=== PATIENT | female | born 1960 | race Caucasian/White ===

== ENCOUNTER 2020-05-19 12:28 | Inpatient (IN) | payer MEDICAID ==
[~2020-05-19] VITALS: Ht 152.4 cm; Wt 43.7 kg
[2020-05-19 12:30] VITALS: BP 172/91
[2020-05-19 13:06] LABS: HEMATOCRIT 41.6 % (37.0-47.0); HEMOGLOBIN 13.6 G/DL (12.0-16.0); MEAN CORPUSCULAR VOLUME 89 FL (80-99); PLATELET COUNT 337 K/UL (150-450); RED BLOOD COUNT 4.68 M/UL (4.20-5.40); RED CELL DISTRIBUTION WIDTH 14.9 % (11.6-14.8); WHITE BLOOD COUNT 18.1 K/UL (4.8-10.8)
[2020-05-19 13:22] LABS: ALBUMIN 3.8 G/DL (3.4-5.0); ALBUMIN/GLOBULIN RATIO 0.9 (1.0-2.7); BILIRUBIN,TOTAL 0.3 MG/DL (0.2-1.0); CALCIUM 9.2 MG/DL (8.5-10.1); CREATININE 1.1 MG/DL (0.55-1.30); POTASSIUM 4.4 MMOL/L (3.5-5.1)
--- NOTE | 2020-05-19 13:29 | Emergency Room Report ---
History of Present Illness General Chief Complaint: General Complaint Source: Patient Present Illness HPI Patient is a 60-year-old female presents for increased difficulty with breathing. Patient had gradually worsening shortness of breath over the past week. Had prior history of leukemia. Had been treated with oral medications only. Had not been having any fever. Shortness of breath that worsened over t [place]. Patient was noted to have markedly diminished oxygen saturation when seen by EMS initially. 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 Patient History Past Medical History: see triage record Reviewed Nursing Documentation: PMH: Agreed; PSxH: Agreed Nursing Documentation-PMH Past Medical History: No History, Except For Review of Systems All Other Systems: negative except mentioned in HPI Physical Exam Vital Signs Date Time Temp Pulse Resp B/P (MAP) Pulse Ox O2 Delivery O2 Flow Rate FiO2 05/19/20 12:23 98.2 102 19 191/97 (128) 92 Non-Rebreather Sp02 EP Interpretation: reviewed, normal General Appearance: normal inspection, no apparent distress, alert, GCS 15, Chronically Ill Head: atraumatic ENT: normal ENT inspection, hearing grossly normal, normal voice Neck: normal inspection, full range of motion, supple, no bony tend Respiratory: no respiratory distress, no retraction, respiratory distress, other - decreased breath sounds at bases Cardiovascular #1: regular rate, rhythm, no edema Gastrointestinal: normal inspection, normal bowel sounds, non tender, soft, no guarding, no hernia Genitourinary: normal inspection, no CVA tenderness Musculoskeletal: normal inspection, back normal, normal range of motion Neurologic: alert, motor strength/tone normal, assistant scientist III-XII nml as tested, oriented x3, responsive, speech normal, normal inspection Psychiatric: normal inspection, judgement/insight normal, mood/affect normal Skin: no rash Medical Decision Making Diagnostic Impression: Primary Impression: Bilateral pleural effusion Additional Impression: Leukemia ER Course Patient presented for shortness of breath. Differential diagnosis include was not limited to pneumonia, pulmonary embolism, pleural effusion, among others. Patient was noted to have elevated white blood count with some history of leukemia. Patient is not currently on chemotherapy. Patient started on Lasix. Chest x-ray read by radiology showed bilateral large pleural effusions. Patient was given IV Lasix. She was noted to have unremarkable EKG. Troponin was noted to be negative. Patient was maintained on supplemental oxygen. Coronavirus marlene ting was negative. Dr. Tiara Villagran was contacted for inpatient management. Labs Test 05/19/20 12:45 05/19/20 13:05 White Blood Count 18.1 K/UL (4.8-10.8) Red Blood Count 4.68 M/UL (4.20-5.40) Hemoglobin 13.6 G/DL (12.0-16.0) Hematocrit 41.6 % (37.0-47.0) Mean Corpuscular Volume 89 FL (80-99) Mean Corpuscular Hemoglobin 29.2 PG (27.0-31.0) Mean Corpuscular Hemoglobin Concent 32.8 G/DL (32.0-36.0) Red Cell Distribution Width 14.9 % (11.6-14.8) Platelet Count 337 K/UL (150-450) Mean Platelet Volume 3.9 FL (6.5-10.1) Neutrophils (%) (Auto) % (45.0-75.0) Lymphocytes (%) (Auto) % (20.0-45.0) Monocytes (%) (Auto) % (1.0-10.0) Eosinophils (%) (Auto) % (0.0-3.0) Basophils (%) (Auto) % (0.0-2.0) Differential Total Cells Counted 100 Neutrophils % (Manual) 54 % (45-75) Lymphocytes % (Manual) 45 % (20-45) Monocytes % (Manual) 1 % (1-10) Eosinophils % (Manual) 0 % (0-3) Basophils % (Manual) 0 % (0-2) Band Neutrophils 0 % (0-8) Platelet Estimate Adequate Platelet Morphology Normal Red Blood Cell Morphology Normal D-Dimer 2.44 mg/L FEU (0.00-0.49) Sodium Level 132 MMOL/L (136-145) Potassium Level 4.4 MMOL/L (3.5-5.1) Chloride Level 100 MMOL/L (98-107) Carbon Dioxide Level 23 MMOL/L (21-32) Anion Gap 9 mmol/L (5-15) Blood Urea Nitrogen 32 mg/dL (7-18) Creatinine 1.1 MG/DL (0.55-1.30) Estimat Glomerular Filtration Rate 50.5 mL/min (>60) Glucose Level 163 MG/DL (74-106) Lactic Acid Level 0.80 mmol/L (0.4-2.0) Calcium Level 9.2 MG/DL (8.5-10.1) Total Bilirubin 0.3 MG/DL (0.2-1.0) Aspartate Amino Transf (AST/SGOT) 36 U/L (15-37) Alanine Aminotransferase (ALT/SGPT) 32 U/L (12-78) Alkaline Phosphatase 85 U/L (46-116) Troponin I 0.000 ng/mL (0.000-0.056) Pro-B-Type Natriuretic Peptide 718 pg/mL (0-125) Total Protein 8.1 G/DL (6.4-8.2) Albumin 3.8 G/DL (3.4-5.0) Globulin 4.3 g/dL Albumin/Globulin Ratio 0.9 (1.0-2.7) Urine Color Pale yellow Urine Appearance Slightly cloudy Urine pH 5 (4.5-8.0) Urine Specific [place] 1.020 (1.005-1.035) Urine Protein 3+ (NEGATIVE) Urine Glucose (UA) Negative (NEGATIVE) Urine Ketones 1+ (NEGATIVE) Urine Blood 5+ (NEGATIVE) Urine Nitrite Negative (NEGATIVE) Urine Bilirubin Negative (NEGATIVE) Urine Urobilinogen Normal MG/DL (0.0-1.0) Urine Leukocyte Esterase 1+ (NEGATIVE) Urine RBC 5-10 /HPF (0 - 2) Urine WBC 2-4 /HPF (0 - 2) Urine Squamous Epithelial Cells Occasional /LPF Urine Bacteria Few /HPF (NONE) Last Vital Signs Date Time Temp Pulse Resp B/P (MAP) Pulse Ox O2 Delivery O2 Flow Rate FiO2 05/19/20 12:23 98.2 102 19 191/97 (128) 92 Non-Rebreather Status: unchanged Disposition: ADMITTED INPATIENT Condition: Serious Referrals: [facility] (PCP) Guerrero Sarkar MD May 19, 2020 13:29
[2020-05-19 13:36] LABS: APPEARANCE,URINE SLIGHTLY CLOUDY; BILIRUBIN, URINE NEGATIVE (NEGATIVE); COLOR,URINE PALE YELLOW; GLUCOSE, URINE (UA) NEGATIVE (NEGATIVE); KETONES,URINE 1+ (NEGATIVE); LEUKOCYTE ESTERASE ,URINE 1+ (NEGATIVE); NITRITE,URINE NEGATIVE (NEGATIVE); PH,URINE 5 (4.5-8.0); PROTEIN,URINE 3+ (NEGATIVE); UROBILINOGEN,URINE NORMAL MG/DL (0.0-1.0)
--- NOTE | 2020-05-19 13:43 | Diagnostic Imaging Report ---
Indication: Shortness of breath Technique: One view of the chest Comparison: none Findings: There are bilateral large pleural effusions, right greater than left. The heart borders are obscured. There is mild interstitial congestion. Impression: Bilateral large pleural effusions Mild interstitial congestion
[2020-05-19 14:30] VITALS: BP 127/67
[2020-05-19] MEDS ORDERED: cefTRIAXone 1 GM in NS 55 ML IVPB ONE (14:30)
[2020-05-19] MEDS ORDERED: AMLODIPINE BESYL5 MG ORAL (16:37)
[2020-05-19] MEDS ORDERED: ASPIRIN EC325 MG ORAL (16:37)
[2020-05-19] MEDS ORDERED: LIPITOR80 MG ORAL (16:37)
[2020-05-19] MEDS ORDERED: ERGOCALCIFEROL1 GM ORAL (16:37)
[2020-05-19] MEDS ORDERED: SPRYCEL100 MG PO (16:37)
[2020-05-19] MEDS ORDERED: LISINOPRIL-HCT1 EAC2 ORAL (16:37)
[2020-05-19] MEDS ORDERED: FERROUS SULFAT325 MG ORAL (16:37)
[2020-05-19] MEDS ORDERED: Acetaminophen 500mg (ES) tab ORAL PRN (16:45)
[2020-05-19] MEDS ORDERED: Varibar Thin Liquid powder 148gm MC PRN (17:00)
[2020-05-19] MEDS ORDERED: Varibar Honey 250ml MC PRN (17:00)
[2020-05-19] MEDS ORDERED: Varibar Pudding 230ml MC PRN (17:00)
[2020-05-19] MEDS ORDERED: Varibar Nectar 240ml MC PRN (17:00)
--- NOTE | 2020-05-19 17:14 | Cardiac Electrophysiology PN ---
Subjective Subjective [id number] Objective Last 24 Hour Vital Signs Date Time Temp Pulse Resp B/P (MAP) Pulse Ox O2 Delivery O2 Flow Rate FiO2 05/19/20 15:55 98.3 92 29 135/72 96 Bi-pap 15.0 95 05/19/20 14:31 93 33 94 95 05/19/20 14:30 98.5 87 26 127/67 94 Bi-pap 95 05/19/20 14:28 93 33 94 Bi-Pap 95 05/19/20 12:30 98.9 110 26 172/91 90 Non-Rebreather 05/19/20 12:30 110 26 Non-Rebreather 15.0 100 05/19/20 12:23 98.2 102 19 191/97 (128) 92 Non-Rebreather Laboratory Tests Test 05/19/20 12:45 05/19/20 13:05 White Blood Count 18.1 K/UL (4.8-10.8) H Red Blood Count 4.68 M/UL (4.20-5.40) Hemoglobin 13.6 G/DL (12.0-16.0) Hematocrit 41.6 % (37.0-47.0) Mean Corpuscular Volume 89 FL (80-99) Mean Corpuscular Hemoglobin 29.2 PG (27.0-31.0) Mean Corpuscular Hemoglobin Concent 32.8 G/DL (32.0-36.0) Red Cell Distribution Width 14.9 % (11.6-14.8) H Platelet Count 337 K/UL (150-450) Mean Platelet Volume 3.9 FL (6.5-10.1) L Neutrophils (%) (Auto) % (45.0-75.0) Lymphocytes (%) (Auto) % (20.0-45.0) Monocytes (%) (Auto) % (1.0-10.0) Eosinophils (%) (Auto) % (0.0-3.0) Basophils (%) (Auto) % (0.0-2.0) Differential Total Cells Counted 100 Neutrophils % (Manual) 54 % (45-75) Lymphocytes % (Manual) 45 % (20-45) Monocytes % (Manual) 1 % (1-10) Eosinophils % (Manual) 0 % (0-3) Basophils % (Manual) 0 % (0-2) Band Neutrophils 0 % (0-8) Platelet Estimate Adequate Platelet Morphology Normal Red Blood Cell Morphology Normal D-Dimer 2.44 mg/L FEU (0.00-0.49) H Sodium Level 132 MMOL/L (136-145) L Potassium Level 4.4 MMOL/L (3.5-5.1) Chloride Level 100 MMOL/L (98-107) Carbon Dioxide Level 23 MMOL/L (21-32) Anion Gap 9 mmol/L (5-15) Blood Urea Nitrogen 32 mg/dL (7-18) H Creatinine 1.1 MG/DL (0.55-1.30) Estimat Glomerular Filtration Rate 50.5 mL/min (>60) Glucose Level 163 MG/DL (74-106) H Lactic Acid Level 0.80 mmol/L (0.4-2.0) Calcium Level 9.2 MG/DL (8.5-10.1) Total Bilirubin 0.3 MG/DL (0.2-1.0) Aspartate Amino Transf (AST/SGOT) 36 U/L (15-37) Alanine Aminotransferase (ALT/SGPT) 32 U/L (12-78) Alkaline Phosphatase 85 U/L (46-116) Troponin I 0.000 ng/mL (0.000-0.056) Pro-B-Type Natriuretic Peptide 718 pg/mL (0-125) H Total Protein 8.1 G/DL (6.4-8.2) Albumin 3.8 G/DL (3.4-5.0) Globulin 4.3 g/dL Albumin/Globulin Ratio 0.9 (1.0-2.7) L Urine Color Pale yellow Urine Appearance Slightly cloudy Urine pH 5 (4.5-8.0) Urine Specific [place] 1.020 (1.005-1.035) Urine Protein 3+ (NEGATIVE) H Urine Glucose (UA) Negative (NEGATIVE) Urine Ketones 1+ (NEGATIVE) H Urine Blood 5+ (NEGATIVE) H Urine Nitrite Negative (NEGATIVE) Urine Bilirubin Negative (NEGATIVE) Urine Urobilinogen Normal MG/DL (0.0-1.0) Urine Leukocyte Esterase 1+ (NEGATIVE) H Urine RBC 5-10 /HPF (0 - 2) H Urine WBC 2-4 /HPF (0 - 2) Urine Squamous Epithelial Cells Occasional /LPF Urine Bacteria Few /HPF (NONE) Microbiology Date/Time Source Procedure Growth Status 05/19/20 13:00 Nasopharynx SARS-CoV-2 RdRp Gene Assay - Final Complete Cristian England MD May 19, 2020 17:14
[2020-05-19] MEDS ORDERED: cloNIDine 0.2mg Tab ORAL PRN (17:15)
--- NOTE | 2020-05-19 18:59 | Consultation ---
DATE OF CONSULTATION: 05/19/2020 CARDIOLOGY CONSULTATION REFERRING PHYSICIAN: Tiara Jara M.D. REASON FOR CONSULTATION: Increasing shortness of breath and accelerated hypertension, blood pressure more than 190s. HISTORY OF PRESENT ILLNESS: The patient is a 60-year-old lady with history of hypertension, who presented to the emergency room with increasing shortness of breath and dyspnea over the last week. The patient has a prior history of leukemia and has been treated with oral medications only. The patient denies any fever or any prior coronary artery disease or congestive heart failure. The patient was noted to have bilateral pleural effusions with white count of 18,000. Cardiology consultation was obtained for further evaluation. REVIEW OF SYSTEMS: Negative other than what was mentioned in history of present illness. PAST MEDICAL HISTORY: As mentioned above. FAMILY HISTORY: Noncontributory. SOCIAL HISTORY: She lives at home. Does not smoke or drink alcohol. LABORATORY DATA: Her labs show white count of 18.1, hemoglobin 13.7, hematocrit of 41.6, platelets of 337. Sodium is 132, potassium is 4.4, BUN of 30, creatinine 1.1, glucose of 160. Troponin is negative. BNP 718. PHYSICAL EXAMINATION: HEAD AND NECK: No JVD. LUNGS: Decreased breath sounds. CARDIOVASCULAR: Regular S1 and S2 and tachycardic. ABDOMEN: Soft. EXTREMITIES: No pitting edema. ASSESSMENT AND PLAN: 1. Accelerated hypertension. Start the patient on hydralazine p.r.n. as well as lisinopril 10 mg p.o. b.i.d. We will start the patient also on IV Lasix. 2. Leukocytosis. The patient will be started on IV antibiotic. She will receive ceftriaxone. 3. Bilateral pleural effusions. The patient will need thoracentesis for diagnostic and therapeutic purposes, currently on BiPAP. Further evaluation by Dr. Olson. 4. Hyponatremia. 5. History of leukemia. Thank you very much for allowing me to participate in the care of this patient. Please do not hesitate to contact me for any questions regarding my evaluation. Cristian England M.D. DR: FABIOLA JOB#: [id number] CC:
[2020-05-19 20:00] VITALS: BP 104/59
[2020-05-19] MEDS: Lisinopril 10mg tab ORAL SCH (20:53)
[2020-05-20] VITALS (9 sets, daily range): BP systolic 68–126; BP diastolic 32–68
[2020-05-20] MEDS: Lisinopril 10mg tab ORAL SCH ×2 (09:00→21:00)
[2020-05-20] MEDS: DASATINIB 100 MG ORAL SCH (09:00)
--- NOTE | 2020-05-20 10:23 | Consultation ---
History of Present Illness General Chief Complaint: General Complaint Present Illness Allergies: Coded Allergies: No Known Allergies (Unverified , 05/19/20) Medication History Scheduled Amlodipine Besylate* (Amlodipine Besylate*), 5 MG ORAL DAILY, (Reported) Aspirin* (Aspirin Ec*), 81 MG ORAL DAILY, (Reported) Atorvastatin (Lipitor), 20 MG ORAL BEDTIME, (Reported) Dasatinib (Sprycel), 100 MG PO DAILY, (Reported) Ergocalciferol (Vitamin D2) (Ergocalciferol), 1.25 MG ORAL ONCE A WEEK, (Reported) Ferrous Sulfate* (Ferrous Sulfate*), 325 MG ORAL THREE TIMES A DAY, (Reported) Lisinopril/Hydrochlorothiazide 20-25 Mg Tab (Lisinopril-Hctz 20-25 Mg Tab), 1 TAB ORAL DAILY, (Reported) Patient History Healthcare decision maker Resuscitation status Advanced Directive on File Physical Exam Last 24 Hour Vital Signs Date Time Temp Pulse Resp B/P (MAP) Pulse Ox O2 Delivery O2 Flow Rate FiO2 05/20/20 06:45 115 37 97 95 05/20/20 04:00 95 05/20/20 04:00 Bi-pap 05/20/20 04:00 97.3 76 26 124/68 (86) 96 05/20/20 03:27 84 05/20/20 02:56 76 14 96 95 05/20/20 00:00 95 05/20/20 00:00 98.0 76 18 103/57 (72) 98 05/20/20 00:00 Bi-pap 05/19/20 23:30 78 05/19/20 22:43 87 36 95 95 05/19/20 20:53 104/59 05/19/20 20:00 Bi-pap 05/19/20 20:00 95 05/19/20 20:00 97.7 27 104/59 (74) 98 05/19/20 19:24 85 05/19/20 19:05 82 27 97 95 05/19/20 16:31 Bi-Pap 95.0 05/19/20 16:00 93 05/19/20 15:55 98.3 92 29 135/72 96 Bi-pap 15.0 95 05/19/20 14:31 93 33 94 95 05/19/20 14:30 98.5 87 26 127/67 94 Bi-pap 95 05/19/20 14:28 93 33 94 Bi-Pap 95 05/19/20 12:30 98.9 110 26 172/91 90 Non-Rebreather 05/19/20 12:30 110 26 Non-Rebreather 15.0 100 05/19/20 12:23 98.2 102 19 191/97 (128) 92 Non-Rebreather Intake and Output 05/19/20 05/20/20 19:00 07:00 Output Total 250 ml 100 ml Balance -250 ml -100 ml Output Urine Total 250 ml 100 ml # Voids 1 2 Laboratory Tests Test 05/19/20 12:45 05/19/20 13:05 05/19/20 18:55 05/20/20 03:09 White Blood Count 18.1 K/UL (4.8-10.8) H Red Blood Count 4.68 M/UL (4.20-5.40) Hemoglobin 13.6 G/DL (12.0-16.0) Hematocrit 41.6 % (37.0-47.0) Mean Corpuscular Volume 89 FL (80-99) Mean Corpuscular Hemoglobin 29.2 PG (27.0-31.0) Mean Corpuscular Hemoglobin Concent 32.8 G/DL (32.0-36.0) Red Cell Distribution Width 14.9 % (11.6-14.8) H Platelet Count 337 K/UL (150-450) Mean Platelet Volume 3.9 FL (6.5-10.1) L Neutrophils (%) (Auto) % (45.0-75.0) Lymphocytes (%) (Auto) % (20.0-45.0) Monocytes (%) (Auto) % (1.0-10.0) Eosinophils (%) (Auto) % (0.0-3.0) Basophils (%) (Auto) % (0.0-2.0) Differential Total Cells Counted 100 Neutrophils % (Manual) 54 % (45-75) Lymphocytes % (Manual) 45 % (20-45) Monocytes % (Manual) 1 % (1-10) Eosinophils % (Manual) 0 % (0-3) Basophils % (Manual) 0 % (0-2) Band Neutrophils 0 % (0-8) Platelet Estimate Adequate Platelet Morphology Normal Red Blood Cell Morphology Normal D-Dimer 2.44 mg/L FEU (0.00-0.49) H Sodium Level 132 MMOL/L (136-145) L Potassium Level 4.4 MMOL/L (3.5-5.1) Chloride Level 100 MMOL/L (98-107) Carbon Dioxide Level 23 MMOL/L (21-32) Anion Gap 9 mmol/L (5-15) Blood Urea Nitrogen 32 mg/dL (7-18) H Creatinine 1.1 MG/DL (0.55-1.30) Estimat Glomerular Filtration Rate 50.5 mL/min (>60) Glucose Level 163 MG/DL (74-106) H Lactic Acid Level 0.80 mmol/L (0.4-2.0) Calcium Level 9.2 MG/DL (8.5-10.1) Total Bilirubin 0.3 MG/DL (0.2-1.0) Aspartate Amino Transf (AST/SGOT) 36 U/L (15-37) Alanine Aminotransferase (ALT/SGPT) 32 U/L (12-78) Alkaline Phosphatase 85 U/L (46-116) Troponin I 0.000 ng/mL (0.000-0.056) 0.260 ng/mL (0.000-0.056) 0.085 ng/mL (0.000-0.056) Pro-B-Type Natriuretic Peptide 718 pg/mL (0-125) H 2253 pg/mL (0-125) H Total Protein 8.1 G/DL (6.4-8.2) Albumin 3.8 G/DL (3.4-5.0) Globulin 4.3 g/dL Albumin/Globulin Ratio 0.9 (1.0-2.7) L Urine Color Pale yellow Urine Appearance Slightly cloudy Urine pH 5 (4.5-8.0) Urine Specific [place] 1.020 (1.005-1.035) Urine Protein 3+ (NEGATIVE) H Urine Glucose (UA) Negative (NEGATIVE) Urine Ketones 1+ (NEGATIVE) H Urine Blood 5+ (NEGATIVE) H Urine Nitrite Negative (NEGATIVE) Urine Bilirubin Negative (NEGATIVE) Urine Urobilinogen Normal MG/DL (0.0-1.0) Urine Leukocyte Esterase 1+ (NEGATIVE) H Urine RBC 5-10 /HPF (0 - 2) H Urine WBC 2-4 /HPF (0 - 2) Urine Squamous Epithelial Cells Occasional /LPF Urine Bacteria Few /HPF (NONE) Thyroid Stimulating Hormone (TSH) 2.938 uiU/mL (0.358-3.740) Free Thyroxine 1.49 NG/DL (0.76-1.46) H Microbiology Date/Time Source Procedure Growth Status 05/19/20 13:00 Nasopharynx SARS-CoV-2 RdRp Gene Assay - Final Complete Height (Feet): 5 Height (Inches): 0.00 Weight (Pounds): 100 Medications Current Medications Medications (Trade) Dose Ordered Sig/Jennie Route PRN Reason Start Time Stop Time Status Last Admin Dose Admin Acetaminophen (Tylenol) 500 mg Q6H PRN ORAL Mild Pain (Pain Scale 1-3) 05/19/20 16:45 06/18/20 16:44 Barium Sulfate (Varibar Honey) 250 ml NOW PRN MC RAD 05/19/20 17:00 05/22/20 16:46 Barium Sulfate (Varibar [place]) 240 ml NOW PRN MC RAD 05/19/20 17:00 05/22/20 16:46 Barium Sulfate (Varibar Pudding) 230 ml NOW PRN MC RAD 05/19/20 17:00 05/22/20 16:46 Barium Sulfate (Varibar Thin Liquid powder) 148 gm NOW PRN MC RAD 05/19/20 17:00 05/22/20 16:46 Ceftriaxone Sodium 1 gm/ Dextrose 55 ml @ 110 mls/hr Q24H IVPB 05/20/20 15:00 05/27/20 14:59 Clonidine HCl (Catapres tab) 0.2 mg Q4H PRN ORAL htn 05/19/20 17:15 08/17/20 17:14 Furosemide (Lasix) 40 mg EVERY 12 HOURS IV 05/19/20 21:00 06/18/20 20:59 05/20/20 09:54 Lisinopril (ZestriL) 10 mg EVERY 12 HOURS ORAL 05/19/20 21:00 06/18/20 20:59 Patient Own Medication (Patient's Own Med) 1 ea DAILY ORAL 05/20/20 09:00 06/19/20 08:59 Assessment/Plan Assessment/Plan: Hematology Consultation REQ : Dixon Villagran RFC: Leukemia eval DOS 05/20/2020 ID 60-year-old female presents for increased difficulty with breathing. Patient had gradually worsening shortness of breath over the past week. Had prior history of leukemia. Had been treated with oral medications only. Had not been having any fever. Shortness of breath that worsened over time. Patient was noted to have markedly diminished oxygen saturation when seen by EMS initially. Seen in er and admitted to overflow this am, elevated wbc due to cml history and is on desatanib. Allergies: No Known Allergies (Unverified , 05/19/20) COVID-19 Screening Contact w/high risk pt: No Experienced COVID-19 symptoms?: No COVID-19 Testing performed SALES MANAGEMENT INTERN: No Patient History Past Medical History: see triage record Reviewed Nursing Documentation: PMH: Agreed; PSxH: Agreed Nursing Documentation-PMH Past Medical History: No History, Except For Review of Systems All Other Systems: negative except mentioned in HPI Physical Exam: Vitals: reviewed General: NAD HEENT: nc, at Neck: supple Chest: clear breath sounds bilaterally Cardiovascular: RRR, no s3, s4 Abdomen: soft, nontender, nd Extremities: no cce, normal range of motion Neuro: alert and oriented Labs: noted Imaging: reviewed Assessment and Recs # 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
--- NOTE | 2020-05-20 12:30 | Consultation ---
DATE OF CONSULTATION: 05/20/2020 INFECTIOUS DISEASES CONSULTATION CONSULTING PHYSICIAN: Timothy Pennington MD PRIMARY ATTENDING PHYSICIAN: Tiara Jara MD REASON FOR CONSULTATION: Leukocytosis. HISTORY OF PRESENT ILLNESS: The patient is a 60-year-old female admitted yesterday because of shortness of breath that progressively worse for a week. The patient had oxygen desaturation at the time of transfer to the hospital. She was found to have bilateral pleural effusion and leukocytosis of 18.1. The patient was put on BiPAP and admitted to ICU. PAST MEDICAL HISTORY: Significant for leukemia. Denies diabetes, but has hypertension and blood pressure at the time of admission was 191/97. PAST SURGICAL HISTORY: Negative. ALLERGIES: No known drug allergies. MEDICATIONS: Getting ceftriaxone, Dasatinib tablet, lisinopril, Lasix, Tylenol, get a dose of Lasix in the ER. SOCIAL HISTORY: , have two children. Denies alcohol, drug abuse, or smoking. REVIEW OF SYSTEMS: No fever. No chills. No significant coughing. She has shortness of breath. Feels better with bypass. No nausea. No vomiting. No dysuria. PHYSICAL EXAMINATION: VITAL SIGNS: Temperature 97.3, pulse 115, respiratory rate increased . HEAD AND NECK: [place] conjunctiva. HEART: Tachycardic. LUNGS: Decreased sounds bilaterally on BiPAP. ABDOMEN: Soft and nontender. EXTREMITIES: No edema. NEUROLOGIC: Awake, alert, oriented x3. LABORATORY DATA: COVID test is negative. WBC 18.1, hemoglobin 13.6, hematocrit 41.6, and platelets is 337. Troponin was elevated 0.085. Sodium 132, potassium 4.4, chloride 100, bicarbonate 23, BUN 32, creatinine 1, glucose 163. Albumin 3.8. Chest x-ray showed bilateral large pleural effusion. IMPRESSION: Leukocytosis, may have systemic inflammatory response syndrome or sepsis, has bilateral pleural effusion, has leukemia, accelerated hypertension, elevation of troponin. RECOMMENDATION: Continue with ceftriaxone. We will follow up the cultures. Probably needs thoracentesis. At the end of my exam, I thank Dr. Jara, for involving me in the care of this patient. Timothy Pennington M.D. DR: Tom JOB#: [id number] CC: SINA
--- NOTE | 2020-05-20 14:47 | Pre-Procedure Note/Attestation ---
Pre-Procedure Note/Attestation Complete Prior to Procedure Planned Procedure: right Procedure Narrative: Thoracentesis Indications for Procedure Pre-Operative Diagnosis: pleural effusion Attestation I attest that I discussed the nature of the procedure; its benefits; risks and complications; and alternatives (and the risks and benefits of such alternatives), prior to the procedure, with the patient (or the patient's legal client relations representative). I attest that, if there was a reasonable possibility of needing a blood tra nsfusion, the patient (or the patient's legal client relations representative) was given the [facility] standardized written summary, pursuant to the [place] Blood Safety Act ([place] Health and Safety Code # 1645, as amended). I attest that I re-evaluated the patient just prior to the surgery and that there has been no change in the patient's H&P, except as documented below: Hany Chacon MD May 20, 2020 14:47
--- NOTE | 2020-05-20 14:48 | Brief Operative Note ---
Immediate Post Operative Note Operative Note Pre-op Diagnosis: pleural effusion Procedure: R thoracentesis Post-op Diagnosis: same as pre-op Surgeon: Noah Chacon Anesthesia: local Specimen: yes - 50 ml cloudy bloody fluid sent to lab Complications: none Fluids: none Implant(s) used?: No Hany Chacon MD May 20, 2020 14:48
--- NOTE | 2020-05-20 14:51 | Cardiac Electrophysiology PN ---
Assessment/Plan Assessment/Plan 1. Accelerated hypertension. On hydralazine p.r.n. as well as lisinopril 10 mg p.o. b.i.d. and Lasix 40 iv bid 2. Leukocytosis. On IV antibiotic. 3. Bilateral pleural effusions. S/P Right side thoracentesis. Further evaluation by Dr. Olson. 4. Hyponatremia. 5. History of leukemia. Subjective Subjective Just had Right sided thoracentesis on 1.2 liters of serosanguineous fluid Objective Last 24 Hour Vital Signs Date Time Temp Pulse Resp B/P (MAP) Pulse Ox O2 Delivery O2 Flow Rate FiO2 05/20/20 12:00 91 05/20/20 12:00 97.9 90 21 112/57 (75) 98 05/20/20 12:00 95 05/20/20 12:00 Bi-pap 05/20/20 10:45 90 30 95 100 05/20/20 08:00 98.7 95 26 125/55 (78) 95 05/20/20 08:00 Bi-pap 05/20/20 08:00 95 05/20/20 08:00 90 05/20/20 06:45 115 37 97 95 05/20/20 04:00 95 05/20/20 04:00 Bi-pap 05/20/20 04:00 97.3 76 26 124/68 (86) 96 05/20/20 03:27 84 05/20/20 02:56 76 14 96 95 05/20/20 00:00 95 05/20/20 00:00 98.0 76 18 103/57 (72) 98 05/20/20 00:00 Bi-pap 05/19/20 23:30 78 05/19/20 22:43 87 36 95 95 05/19/20 20:53 104/59 05/19/20 20:00 Bi-pap 05/19/20 20:00 95 05/19/20 20:00 97.7 27 104/59 (74) 98 05/19/20 19:24 85 05/19/20 19:05 82 27 97 95 05/19/20 16:31 Bi-Pap 95.0 05/19/20 16:00 93 05/19/20 15:55 98.3 92 29 135/72 96 Bi-pap 15.0 95 Intake and Output 05/19/20 05/20/20 19:00 07:00 Output Total 250 ml 100 ml Balance -250 ml -100 ml Output Urine Total 250 ml 100 ml # Voids 1 2 Laboratory Tests Test 05/19/20 18:55 05/20/20 03:09 05/20/20 11:40 Troponin I 0.260 ng/mL (0.000-0.056) 0.085 ng/mL (0.000-0.056) Pro-B-Type Natriuretic Peptide 2253 pg/mL (0-125) H Thyroid Stimulating Hormone (TSH) 2.938 uiU/mL (0.358-3.740) Free Thyroxine 1.49 NG/DL (0.76-1.46) H Prothrombin Time 11.4 SEC (9.30-11.50) Prothromb Time International Ratio 1.0 (0.9-1.1) Activated Partial Thromboplast Time 26 SEC (23-33) Microbiology Date/Time Source Procedure Growth Status 05/19/20 13:00 Nasopharynx SARS-CoV-2 RdRp Gene Assay - Final Complete Objective HEAD AND NECK: No JVD. LUNGS: Decreased breath sounds. CARDIOVASCULAR: Regular S1 and S2 and tachycardic. ABDOMEN: Soft. EXTREMITIES: No pitting edema. Cristian England MD May 20, 2020 14:51
[2020-05-20] MEDS: cefTRIAXone 1 GM in D5W 55 ML IVPB SCH (14:58)
--- NOTE | 2020-05-20 15:40 | Diagnostic Imaging Report ---
Indication: Bilateral leg pain Technique: Grayscale and duplex images of the bilateral lower extremity veins Comparison: None Findings: Bilaterally, grayscale and duplex images demonstrate no evidence of intraluminal thrombus. Normal phasic Doppler waveforms, demonstrating normal augmentation response and no evidence of valvular insufficiency. Greater saphenous vein(s) and tibial veins are patent. Normal compressibility. Impression: Negative for evidence of lower extremity deep venous thrombosis bilaterally
--- NOTE | 2020-05-20 16:29 | Consultation ---
DATE OF CONSULTATION: 05/20/2020 PULMONARY CONSULTATION CONSULTING PHYSICIAN: Micah Olson MD HISTORY OF PRESENT ILLNESS: This is a 60-year-old female who was admitted to the hospital with respiratory failure. She is currently on BiPAP. She is unable to provide any further history. The patient reports a history of leukemia and has been on treatment. She has had gradual worsening shortness of breath. 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 She has a history of CML. The patient was seen and evaluated. Her imaging studies are reviewed. An x-ray of chest has shown large bilateral pleural effusions as well as mild interstitial congestion. She has cardiomegaly as well. PAST MEDICAL HISTORY: CML. REVIEW OF SYSTEMS: Denies any headaches, hematemesis, melena, hematochezia, or weight loss. PHYSICAL EXAMINATION: GENERAL: Reveals a 60-year-old female. HEENT: Unremarkable. VITAL SIGNS: Blood pressure 120/60, heart rate , respirations 20, O2 saturation 95% on BiPAP. CHEST: Shows marked decreased breath sounds bilaterally with normal heart sounds. ABDOMEN: Soft. EXTREMITIES: There is no edema. LABORATORY DATA: Lab testing shows white count 18,000. Troponin 0.0, now 0.26 . BNP is elevated. Creatinine 1.1. Coags are negative except for D-dimer of 2.44. IMPRESSION: 1. History of CML, on dasatinib. 2. Possible pneumonia. 3. Large pleural effusions, needs thoracentesis. 4. Hypertension. 5. Elevated D-dimer, need to rule out DVT and PE. DISCUSSION: We will request bilateral thoracentesis. Await D-dimer. Agree with broad-spectrum antibiotics. Consider diuresis. We will follow. Micah Olson M.D. DR: SUE JOB#: [id number] CC:
--- NOTE | 2020-05-20 18:45 | Diagnostic Imaging Report ---
Indications: Pleural effusion Technique: Ultrasound used to localize optimal puncture site. Sterile prepping and draping right chest. Local anesthesia with 1% lidocaine. Under real-time ultrasound guidance, puncture pleural space using thoracentesis needle. Stylet removed. Catheter placed to vacuum bottle suction. Total 1500 milliliters of cloudy attain fluid aspirated. A specimen was sent to the lab. Patient tolerated procedure well, without immediate complication. Findings: Followup sonography demonstrates complete resolution of pleural fluid. Impression: Successful ultrasound-guided thoracentesis, yielding 1500 milliliters of fluid
--- NOTE | 2020-05-20 18:48 | Diagnostic Imaging Report ---
Indication: Postthoracentesis Technique: One view of the chest Comparison: 05/19/2020 Findings: Interim near complete resolution of previously demonstrated right pleural effusion, status post thoracentesis. No pneumothorax demonstrated. Large left pleural effusion persists. Mild interstitial congestion persists. Impression: Improved right pleural effusion, status post thoracentesis. No radiographically evident complication
--- NOTE | 2020-05-20 22:45 | History and Physical Report ---
DATE OF ADMISSION: 05/19/2020 HISTORY OF PRESENT ILLNESS: Patient has history of leukemia with bilateral effusion, shortness of breath. Patient has been having shortness of breath for 2 weeks. Mild cough. Patient has history of leukemia. Patient is on BiPAP. Initially was supposed to go to telemetry. Patient basically also complained of shortness of breath that was getting worse in the past 2 weeks. Patient has mild recurrent cough as well. Denies fever or chills. Denies headache. Denies chest pain. PAST MEDICAL HISTORY: Significant for leukemia as well as iron deficiency anemia, hypertension, hyperlipidemia. PAST SURGICAL HISTORY: . ALLERGIES: No known allergies. MEDICATIONS: Hydrochlorothiazide, lisinopril, ferrous sulfate, vitamin D, Lipitor, aspirin, amlodipine. FAMILY HISTORY: Noncontributory. SOCIAL HISTORY: Denies history of smoking. Denies alcohol or illicit drugs. REVIEW OF SYSTEMS: HEENT: Denies headaches. RESPIRATORY: Reports shortness of breath. Does have some cough. CARDIOVASCULAR: Denies chest pain. GASTROINTESTINAL: Denies nausea, vomiting, or diarrhea. EXTREMITIES: Denies pain in lower extremities. CENTRAL NERVOUS SYSTEM: Denies change in speech pattern. Feels weak. PHYSICAL EXAMINATION: VITAL SIGNS: Temperature is 98.7, pulse 95, blood pressure 134/55. HEENT: PERRLA. NECK: Supple. CHEST: Bibasilar rhonchi. CARDIOVASCULAR: Regular rate and rhythm. GASTROINTESTINAL: Soft, nontender, nondistended. No organomegaly. EXTREMITIES: Has 1+ edema. Reflexes equal on both sides. Moves all 4 extremities. LABORATORY DATA: WBC of 18.1, hemoglobin 13.6, platelets of 337. Troponin of 0.260. ASSESSMENT AND PLAN: Respiratory failure on BiPAP, bilateral pleural effusion right greater than left. Thoracocentesis has been ordered. Shortness of breath due to bilateral pleural effusion, history of leukemia, leukocytosis, rule out sepsis. I have consulted Dr. Dionicio Higgins, Dr. England , Dr. Olosn, and Dr. Timothy Pennington to help with the above-mentioned abnormalities, abnormal symptoms, abnormal laboratories, and abnormal imaging. Antibiotic management as per Dr. Timothy Pennington. Tiara Jara M.D. DR: NAKITA JOB#: [id number] CC:
[2020-05-21] VITALS (12 sets, daily range): BP systolic 82–116; BP diastolic 37–59
[2020-05-21 05:40] LABS: BASOPHILS % (AUTO) 0.3 % (0.0-2.0); EOSINOPHILS % (AUTO) 0.6 % (0.0-3.0); HEMATOCRIT 36.5 % (37.0-47.0); HEMOGLOBIN 11.6 G/DL (12.0-16.0); LYMPHOCYTES % (AUTO) 15.8 % (20.0-45.0); MEAN CORPUSCULAR VOLUME 90 FL (80-99); NEUTROPHILS % (AUTO) 76.3 % (45.0-75.0); PLATELET COUNT 292 K/UL (150-450); RED BLOOD COUNT 4.05 M/UL (4.20-5.40); RED CELL DISTRIBUTION WIDTH 15.3 % (11.6-14.8); WHITE BLOOD COUNT 6.2 K/UL (4.8-10.8)
--- NOTE | 2020-05-21 08:39 | Hematology/Onc Progress Note ---
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, sees oncologist in [facility] --> at this time continue desatanib (also is the likely cause of pleural effusio ns) --> no is s/p thora per pulm/cards --> wbc trend 18 --> ABX ceftriaxone --> needs molecular and cytogenectic response for CML, f/u oncologist outpatient # Bilateral pleural effusion --> as per pulm, is on bipap --> thora as needed # HTN --> hydralazine and lisinopril --> sbp goal <140 # Dehydration --> goal of euvolemia # Elevated ddimer --> duplex lower ext r/o dvt==>neg # Dvt ppx scds Appreciate consultation and dw RN Subjective Constitutional: Denies: no symptoms, chills, fever, malaise, weakness, other HEENT: Denies: no symptoms, eye pain, blurred vision, tearing, double vision, ear pain, ear discharge, nose pain, nose congestion, throat pain, throat swelling, mouth pain, mouth swelling, other Cardiovascular: Denies: no symptoms, chest pain, edema, irregular heart rate, lightheadedness, palpitations, syncope, other Respiratory: Denies: no symptoms, cough, shortness of breath, SOB with excer tion, SOB at rest, sputum, wheezing, other Gastrointestinal/Abdominal: Denies: no symptoms, abdomen distended, abdominal pain, black stools, tarry stools, blood in stool, constipated, diarrhea, difficulty swallowing, nausea, poor appetite, poor fluid intake, rectal bleeding, vomiting, other Genitourinary: Denies: no symptoms, burning, discharge, frequency, flank pain, hematuria, incontinence, pain, urgency, other Neurologic/Psychiatric: Denies: no symptoms, anxiety, depressed, emotional problems, headache, numbness, paresthesia, pre-existing deficit, seizure, tingling, tremors, weakness, other Allergies: Coded Allergies: No Known Allergies (Unverified , 05/19/20) Subjective 05/21 labs are noted, no bleeding, with pleural effusions due to desatanbib, s/p thora Objective Objective Current Medications Medications (Trade) Dose Ordered Sig/Jennie Route PRN Reason Start Time Stop Time Status Last Admin Dose Admin Acetaminophen (Tylenol) 500 mg Q6H PRN ORAL Mild Pain (Pain Scale 1-3) 05/19/20 16:45 06/18/20 16:44 Barium Sulfate (Varibar Honey) 250 ml NOW PRN RAD 05/19/20 17:00 05/22/20 16:46 Barium Sulfate (Varibar [place]) 240 ml NOW PRN RAD 05/19/20 17:00 05/22/20 16:46 Barium Sulfate (Varibar Pudding) 230 ml NOW PRN RAD 05/19/20 17:00 05/22/20 16:46 Barium Sulfate (Varibar Thin Liquid powder) 148 gm NOW PRN RAD 05/19/20 17:00 05/22/20 16:46 Ceftriaxone Sodium 1 gm/ Dextrose 55 ml @ 110 mls/hr Q24H IVPB 05/20/20 15:00 05/27/20 14:59 05/20/20 14:58 Clonidine HCl (Catapres tab) 0.2 mg Q4H PRN ORAL htn 05/19/20 17:15 08/17/20 17:14 Furosemide (Lasix) 40 mg EVERY 12 HOURS IV 05/19/20 21:00 06/18/20 20:59 05/20/20 09:54 Lisinopril (ZestriL) 10 mg EVERY 12 HOURS ORAL 05/19/20 21:00 06/18/20 20:59 Patient Own Medication (Patient's Own Med) 1 ea DAILY ORAL 05/20/20 09:00 06/19/20 08:59 Last 24 Hour Vital Signs Date Time Temp Pulse Resp B/P (MAP) Pulse Ox O2 Delivery O2 Flow Rate FiO2 05/21/20 07:01 76 15 97 90 05/21/20 06:00 97.9 86 20 97/54 (68) 98 05/21/20 05:00 82 18 116/54 (74) 96 05/21/20 04:00 Bi-pap 05/21/20 04:00 78 17 90/43 (59) 96 05/21/20 04:00 78 05/21/20 04:00 95 05/21/20 03:13 84 19 98 100 05/21/20 03:00 77 17 98/45 (62) 96 9/24/20 02:00 81 19 90/50 (63) 98 05/21/20 01:00 80 17 82/37 (52) 99 05/21/20 00:00 80 05/21/20 00:00 97.9 80 19 98/50 (66) 100 05/21/20 00:00 95 05/21/20 00:00 Bi-pap 05/20/20 23:24 79 19 100 100 05/20/20 23:00 77 18 68/32 (44) 98 05/20/20 22:00 88 26 126/57 (80) 98 05/20/20 21:00 95/55 05/20/20 21:00 86 26 95/55 (68) 98 05/20/20 20:00 95 05/20/20 20:00 Bi-pap 05/20/20 20:00 97.7 84 21 95/54 (68) 99 05/20/20 20:00 84 05/20/20 19:30 88 29 98 100 05/20/20 16:00 Bi-pap 05/20/20 16:00 90 21 112/57 (75) 98 05/20/20 16:00 95 05/20/20 16:00 78 05/20/20 15:14 86 31 100 100 05/20/20 12:00 91 05/20/20 12:00 97.9 90 21 112/57 (75) 98 05/20/20 12:00 95 05/20/20 12:00 Bi-pap 05/20/20 10:45 90 30 95 100 05/20/20 08:00 98.7 95 26 125/55 (78) 95 05/20/20 08:00 Bi-pap 05/20/20 08:00 95 05/20/20 08:00 90 05/20/20 06:45 115 37 97 95 05/20/20 04:00 95 05/20/20 04:00 Bi-pap 05/20/20 04:00 97.3 76 26 124/68 (86) 96 05/20/20 03:27 84 05/20/20 02:56 76 14 96 95 05/20/20 00:00 95 05/20/20 00:00 98.0 76 18 103/57 (72) 98 05/20/20 00:00 Bi-pap 05/19/20 23:30 78 05/19/20 22:43 87 36 95 95 05/19/20 20:53 104/59 05/19/20 20:00 Bi-pap 05/19/20 20:00 95 05/19/20 20:00 97.7 27 104/59 (74) 98 05/19/20 19:24 85 05/19/20 19:05 82 27 97 95 05/19/20 16:31 Bi-Pap 95.0 05/19/20 16:00 93 05/19/20 15:55 98.3 92 29 135/72 96 Bi-pap 15.0 95 05/19/20 14:31 93 33 94 95 05/19/20 14:30 98.5 87 26 127/67 94 Bi-pap 95 05/19/20 14:28 93 33 94 Bi-Pap 95 05/19/20 12:30 98.9 110 26 172/91 90 Non-Rebreather 05/19/20 12:30 110 26 Non-Rebreather 15.0 100 05/19/20 12:23 98.2 102 19 191/97 (128) 92 Non-Rebreather Intake and Output 05/20/20 05/21/20 19:00 07:00 Output Total 75 ml 600 ml Balance -75 ml -600 ml Output Urine Total 75 ml 600 ml Labs Test 05/19/20 12:45 05/19/20 13:05 05/19/20 18:55 05/20/20 03:09 White Blood Count 18.1 K/UL (4.8-10.8) Red Blood Count 4.68 M/UL (4.20-5.40) Hemoglobin 13.6 G/DL (12.0-16.0) Hematocrit 41.6 % (37.0-47.0) Mean Corpuscular Volume 89 FL (80-99) Mean Corpuscular Hemoglobin 29.2 PG (27.0-31.0) Mean Corpuscular Hemoglobin Concent 32.8 G/DL (32.0-36.0) Red Cell Distribution Width 14.9 % (11.6-14.8) Platelet Count 337 K/UL (150-450) Mean Platelet Volume 3.9 FL (6.5-10.1) Neutrophils (%) (Auto) % (45.0-75.0) Lymphocytes (%) (Auto) % (20.0-45.0) Monocytes (%) (Auto) % (1.0-10.0) Eosinophils (%) (Auto) % (0.0-3.0) Basophils (%) (Auto) % (0.0-2.0) Differential Total Cells Counted 100 Neutrophils % (Manual) 54 % (45-75) Lymphocytes % (Manual) 45 % (20-45) Monocytes % (Manual) 1 % (1-10) Eosinophils % (Manual) 0 % (0-3) Basophils % (Manual) 0 % (0-2) Band Neutrophils 0 % (0-8) Platelet Estimate Adequate Platelet Morphology Normal Red Blood Cell Morphology Normal D-Dimer 2.44 mg/L FEU (0.00-0.49) Sodium Level 132 MMOL/L (136-145) Potassium Level 4.4 MMOL/L (3.5-5.1) Chloride Level 100 MMOL/L (98-107) Carbon Dioxide Level 23 MMOL/L (21-32) Anion Gap 9 mmol/L (5-15) Blood Urea Nitrogen 32 mg/dL (7-18) Creatinine 1.1 MG/DL (0.55-1.30) Estimat Glomerular Filtration Rate 50.5 mL/min (>60) Glucose Level 163 MG/DL (74-106) Lactic Acid Level 0.80 mmol/L (0.4-2.0) Calcium Level 9.2 MG/DL (8.5-10.1) Total Bilirubin 0.3 MG/DL (0.2-1.0) Aspartate Amino Transf (AST/SGOT) 36 U/L (15-37) Alanine Aminotransferase (ALT/SGPT) 32 U/L (12-78) Alkaline Phosphatase 85 U/L (46-116) Troponin I 0.000 ng/mL (0.000-0.056) 0.260 ng/mL (0.000-0.056) 0.085 ng/mL (0.000-0.056) Pro-B-Type Natriuretic Peptide 718 pg/mL (0-125) 2253 pg/mL (0-125) Total Protein 8.1 G/DL (6.4-8.2) Albumin 3.8 G/DL (3.4-5.0) Globulin 4.3 g/dL Albumin/Globulin Ratio 0.9 (1.0-2.7) Urine Color Pale yellow Urine Appearance Slightly cloudy Urine pH 5 (4.5-8.0) Urine Specific [place] 1.020 (1.005-1.035) Urine Protein 3+ (NEGATIVE) Urine Glucose (UA) Negative (NEGATIVE) Urine Ketones 1+ (NEGATIVE) Urine Blood 5+ (NEGATIVE) Urine Nitrite Negative (NEGATIVE) Urine Bilirubin Negative (NEGATIVE) Urine Urobilinogen Normal MG/DL (0.0-1.0) Urine Leukocyte Esterase 1+ (NEGATIVE) Urine RBC 5-10 /HPF (0 - 2) Urine WBC 2-4 /HPF (0 - 2) Urine Squamous Epithelial Cells Occasional /LPF Urine Bacteria Few /HPF (NONE) Thyroid Stimulating Hormone (TSH) 2.938 uiU/mL (0.358-3.740) Free Thyroxine 1.49 NG/DL (0.76-1.46) Test 05/20/20 11:40 05/20/20 13:04 05/21/20 04:35 Prothrombin Time 11.4 SEC (9.30-11.50) Prothromb Time International Ratio 1.0 (0.9-1.1) Activated Partial Thromboplast Time 26 SEC (23-33) Body Fluid Source Thoracentesis Body Fluid Volume 27 ml mL Body Fluid Appearance Bloody/cloudy (Clear) Body Fluid RBC 92835 /CUMM Body Fluid Total Nucleated Cells 525 /CUMM Body Fluid Polynuclear WBCs (%) 11 % Body Fluid Mononuclear WBCs (%) 88 % Body Fluid Mesothelial Cells (%) 1 % Body Fluid Comment White Blood Count 6.2 K/UL (4.8-10.8) Red Blood Count 4.05 M/UL (4.20-5.40) Hemoglobin 11.6 G/DL (12.0-16.0) Hematocrit 36.5 % (37.0-47.0) Mean Corpuscular Volume 90 FL (80-99) Mean Corpuscular Hemoglobin 28.6 PG (27.0-31.0) Mean Corpuscular Hemoglobin Concent 31.7 G/DL (32.0-36.0) Red Cell Distribution Width 15.3 % (11.6-14.8) Platelet Count 292 K/UL (150-450) Mean Platelet Volume 4.6 FL (6.5-10.1) Neutrophils (%) (Auto) 76.3 % (45.0-75.0) Lymphocytes (%) (Auto) 15.8 % (20.0-45.0) Monocytes (%) (Auto) 7.0 % (1.0-10.0) Eosinophils (%) (Auto) 0.6 % (0.0-3.0) Basophils (%) (Auto) 0.3 % (0.0-2.0) Height (Feet): 5 Height (Inches): 0.00 Weight (Pounds): 100 Dionicio Higgins MD May 21, 2020 08:39
[2020-05-21] MEDS: Lisinopril 10mg tab ORAL SCH ×2 (09:00→21:00)
[2020-05-21] MEDS: DASATINIB 100 MG ORAL SCH (09:35)
--- NOTE | 2020-05-21 10:24 | Infectious Diseases Prog Note ---
Assessment/Plan Assessment/Plan IMPRESSION: Leukocytosis, systemic inflammatory response syndrome or sepsis, Bilateral pleural effusion, CML, Accelerated hypertension, Elevation of troponin. RECOMMENDATION: Continue with ceftriaxone. We will follow up the cultures. Subjective ROS Limited/Unobtainable: No Constitutional: Reports: no symptoms, other - feels better, transferred from ICU to [facility] Respiratory: Reports: shortness of breath, other - had thoracentesis, removal of 1500cc fluid; Denies: dry cough, productive cough Gastrointestinal/Abdominal: Reports: no symptoms Genitourinary: Reports: no symptoms Allergies: Coded Allergies: No Known Allergies (Unverified , 05/19/20) Objective Last 24 Hour Vital Signs Date Time Temp Pulse Resp B/P (MAP) Pulse Ox O2 Delivery O2 Flow Rate FiO2 05/21/20 09:30 96 103/55 (71) 05/21/20 09:00 100/52 05/21/20 08:30 98.1 88 18 100/52 (68) 93 05/21/20 08:00 95 05/21/20 07:01 76 15 97 90 05/21/20 06:00 97.9 86 20 97/54 (68) 98 05/21/20 05:00 82 18 116/54 (74) 96 05/21/20 04:00 Bi-pap 05/21/20 04:00 78 17 90/43 (59) 96 05/21/20 04:00 78 05/21/20 04:00 95 05/21/20 03:13 84 19 98 100 05/21/20 03:00 77 17 98/45 (62) 96 05/21/20 02:00 81 19 90/50 (63) 98 05/21/20 01:00 80 17 82/37 (52) 99 05/21/20 00:00 80 05/21/20 00:00 97.9 80 19 98/50 (66) 100 05/21/20 00:00 95 05/21/20 00:00 Bi-pap 05/20/20 23:24 79 19 100 100 05/20/20 23:00 77 18 68/32 (44) 98 05/20/20 22:00 88 26 126/57 (80) 98 05/20/20 21:00 95/55 05/20/20 21:00 86 26 95/55 (68) 98 05/20/20 20:00 95 05/20/20 20:00 Bi-pap 05/20/20 20:00 97.7 84 21 95/54 (68) 99 05/20/20 20:00 84 05/20/20 19:30 88 29 98 100 05/20/20 16:00 Bi-pap 05/20/20 16:00 90 21 112/57 (75) 98 05/20/20 16:00 95 05/20/20 16:00 78 05/20/20 15:14 86 31 100 100 05/20/20 12:00 91 05/20/20 12:00 97.9 90 21 112/57 (75) 98 05/20/20 12:00 95 05/20/20 12:00 Bi-pap 05/20/20 10:45 90 30 95 100 Height (Feet): 5 Height (Inches): 0.00 Weight (Pounds): 100 HEENT: mucous membranes moist Respiratory/Chest: decreased breath sounds, other - on BIPAP Cardiovascular: normal rate Abdomen: soft, non tender Extremities: no edema Neurologic/Psychiatric: alert, oriented x 3, responsive Microbiology Date/Time Source Procedure Growth Status 05/19/20 13:00 Nasopharynx SARS-CoV-2 RdRp Gene Assay - Final Complete 05/19/20 12:45 Blood Blood Culture - Preliminary NO GROWTH AFTER 24 HOURS Resulted 05/19/20 12:45 Blood Blood Culture - Preliminary NO GROWTH AFTER 24 HOURS Resulted Laboratory Tests Test 05/20/20 11:40 05/20/20 13:04 05/21/20 04:35 Prothrombin Time 11.4 SEC (9.30-11.50) Prothromb Time International Ratio 1.0 (0.9-1.1) Activated Partial Thromboplast Time 26 SEC (23-33) Body Fluid Source Thoracentesis Body Fluid Volume 27 ml mL Body Fluid Appearance Bloody/cloudy (Clear) [place] 98245 /CUMM Body Fluid Total Nucleated Cells 525 /CUMM Body Fluid Polynuclear WBCs (%) 11 % Body Fluid Mononuclear WBCs (%) 88 % Body Fluid Mesothelial Cells (%) 1 % Body Fluid Glucose Pending Body Fluid Total Protein Pending Body Fluid Lactate Dehydrogenase Pending Body Fluid Comment White Blood Count 6.2 K/UL (4.8-10.8) Red Blood Count 4.05 M/UL (4.20-5.40) L Hemoglobin 11.6 G/DL (12.0-16.0) L Hematocrit 36.5 % (37.0-47.0) L Mean Corpuscular Volume 90 FL (80-99) Mean Corpuscular Hemoglobin 28.6 PG (27.0-31.0) Mean Corpuscular Hemoglobin Concent 31.7 G/DL (32.0-36.0) L Red Cell Distribution Width 15.3 % (11.6-14.8) H Platelet Count 292 K/UL (150-450) Mean Platelet Volume 4.6 FL (6.5-10.1) L Neutrophils (%) (Auto) 76.3 % (45.0-75.0) H Lymphocytes (%) (Auto) 15.8 % (20.0-45.0) L Monocytes (%) (Auto) 7.0 % (1.0-10.0) Eosinophils (%) (Auto) 0.6 % (0.0-3.0) Basophils (%) (Auto) 0.3 % (0.0-2.0) Current Medications Medications (Trade) Dose Ordered Sig/Jennie Route PRN Reason Start Time Stop Time Status Last Admin Dose Admin Acetaminophen (Tylenol) 500 mg Q6H PRN ORAL Mild Pain (Pain Scale 1-3) 05/19/20 16:45 06/18/20 16:44 Barium Sulfate (Varibar Honey) 250 ml NOW PRN RAD 05/19/20 17:00 05/22/20 16:46 Barium Sulfate (Varibar [place]) 240 ml NOW PRN MC RAD 05/19/20 17:00 05/22/20 16:46 Barium Sulfate (Varibar Pudding) 230 ml NOW PRN MC RAD 05/19/20 17:00 05/22/20 16:46 Barium Sulfate (Varibar Thin Liquid powder) 148 gm NOW PRN MC RAD 05/19/20 17:00 05/22/20 16:46 Ceftriaxone Sodium 1 gm/ Dextrose 55 ml @ 110 mls/hr Q24H IVPB 05/20/20 15:00 05/27/20 14:59 05/20/20 14:58 Clonidine HCl (Catapres tab) 0.2 mg Q4H PRN ORAL htn 05/19/20 17:15 08/17/20 17:14 Furosemide (Lasix) 40 mg EVERY 12 HOURS IV 05/19/20 21:00 06/18/20 20:59 05/21/20 09:38 Lisinopril (ZestriL) 10 mg EVERY 12 HOURS ORAL 05/19/20 21:00 06/18/20 20:59 Patient Own Medication (Patient's Own Med) 1 ea DAILY ORAL 05/20/20 09:00 06/19/20 08:59 05/21/20 09:35 Timothy Pennington MD May 21, 2020 10:24
--- NOTE | 2020-05-21 10:45 | Cardiac Electrophysiology PN ---
Assessment/Plan Assessment/Plan 1. Accelerated hypertension. On lisinopril 10 mg p.o. b.i.d. and Lasix 40 iv bid 2. Leukocytosis. On IV antibiotic. 3. Bilateral pleural effusions. S/P Right side thoracentesis.On BIPAP. Will get Stat ABG,. Further evaluation by Dr. Olson. 4. Hyponatremia. 5. History of leukemia. KIEL RN and Dr Olson Subjective Subjective S/P Right sided thoracentesis on 1.2 liters of serosanguineous fluid yesterday. On BIPAP. Alert in NAD. Wants to eat Objective Last 24 Hour Vital Signs Date Time Temp Pulse Resp B/P (MAP) Pulse Ox O2 Delivery O2 Flow Rate FiO2 05/21/20 09:30 96 103/55 (71) 05/21/20 09:00 100/52 05/21/20 08:30 98.1 88 18 100/52 (68) 93 05/21/20 08:00 95 05/21/20 07:01 76 15 97 90 05/21/20 06:00 97.9 86 20 97/54 (68) 98 05/21/20 05:00 82 18 116/54 (74) 96 05/21/20 04:00 Bi-pap 05/21/20 04:00 78 17 90/43 (59) 96 05/21/20 04:00 78 05/21/20 04:00 95 05/21/20 03:13 84 19 98 100 05/21/20 03:00 77 17 98/45 (62) 96 05/21/20 02:00 81 19 90/50 (63) 98 05/21/20 01:00 80 17 82/37 (52) 99 05/21/20 00:00 80 05/21/20 00:00 97.9 80 19 98/50 (66) 100 05/21/20 00:00 95 05/21/20 00:00 Bi-pap 05/20/20 23:24 79 19 100 100 05/20/20 23:00 77 18 68/32 (44) 98 05/20/20 22:00 88 26 126/57 (80) 98 05/20/20 21:00 95/55 05/20/20 21:00 86 26 95/55 (68) 98 05/20/20 20:00 95 05/20/20 20:00 Bi-pap 05/20/20 20:00 97.7 84 21 95/54 (68) 99 05/20/20 20:00 84 05/20/20 19:30 88 29 98 100 05/20/20 16:00 Bi-pap 05/20/20 16:00 90 21 112/57 (75) 98 05/20/20 16:00 95 05/20/20 16:00 78 05/20/20 15:14 86 31 100 100 05/20/20 12:00 91 05/20/20 12:00 97.9 90 21 112/57 (75) 98 05/20/20 12:00 95 05/20/20 12:00 Bi-pap 05/20/20 10:45 90 30 95 100 Intake and Output 05/20/20 05/21/20 19:00 07:00 Output Total 75 ml 600 ml Balance -75 ml -600 ml Output Urine Total 75 ml 600 ml Laboratory Tests Test 05/20/20 11:40 05/20/20 13:04 05/21/20 04:35 Prothrombin Time 11.4 SEC (9.30-11.50) Prothromb Time International Ratio 1.0 (0.9-1.1) Activated Partial Thromboplast Time 26 SEC (23-33) Body Fluid Source Thoracentesis Body Fluid Volume 27 ml mL Body Fluid Appearance Bloody/cloudy (Clear) Body Fluid RBC 58163 /CUMM Body Fluid Total Nucleated Cells 525 /CUMM Body Fluid Polynuclear WBCs (%) 11 % Body Fluid Mononuclear WBCs (%) 88 % Body Fluid Mesothelial Cells (%) 1 % Body Fluid Glucose Pending Body Fluid Total Protein Pending Body Fluid Lactate Dehydrogenase Pending Body Fluid Comment White Blood Count 6.2 K/UL (4.8-10.8) Red Blood Count 4.05 M/UL (4.20-5.40) L Hemoglobin 11.6 G/DL (12.0-16.0) L Hematocrit 36.5 % (37.0-47.0) L Mean Corpuscular Volume 90 FL (80-99) Mean Corpuscular Hemoglobin 28.6 PG (27.0-31.0) Mean Corpuscular Hemoglobin Concent 31.7 G/DL (32.0-36.0) L Red Cell Distribution Width 15.3 % (11.6-14.8) H Platelet Count 292 K/UL (150-450) Mean Platelet Volume 4.6 FL (6.5-10.1) L Neutrophils (%) (Auto) 76.3 % (45.0-75.0) H Lymphocytes (%) (Auto) 15.8 % (20.0-45.0) L Monocytes (%) (Auto) 7.0 % (1.0-10.0) Eosinophils (%) (Auto) 0.6 % (0.0-3.0) Basophils (%) (Auto) 0.3 % (0.0-2.0) Microbiology Date/Time Source Procedure Growth Status 05/19/20 13:00 Nasopharynx SARS-CoV-2 RdRp Gene Assay - Final Complete 05/19/20 12:45 Blood Blood Culture - Preliminary NO GROWTH AFTER 24 HOURS Resulted 05/19/20 12:45 Blood Blood Culture - Preliminary NO GROWTH AFTER 24 HOURS Resulted Objective HEAD AND NECK: No JVD. LUNGS: Decreased breath sounds. CARDIOVASCULAR: Regular S1 and S2 and tachycardic. ABDOMEN: Soft. EXTREMITIES: No pitting edema. Cristian England MD May 21, 2020 10:45
--- NOTE | 2020-05-21 10:45 | Pulmonology Progress Note ---
Subjective ROS Limited/Unobtainable: No Interval Events: S/p large volume thoracentesis yesterday; feeling better Constitutional: Reports: no symptoms, other - feels better, transferred from ICU to [facility] HEENT: Repors: no symptoms Respiratory: Reports: dry cough Gastrointestinal/Abdominal: Reports: no symptoms Genitourinary: Reports: no symptoms Allergies: Coded Allergies: No Known Allergies (Unverified , 05/19/20) Objective Last 24 Hour Vital Signs Date Time Temp Pulse Resp B/P (MAP) Pulse Ox O2 Delivery O2 Flow Rate FiO2 05/21/20 09:30 96 103/55 (71) 05/21/20 09:00 100/52 05/21/20 08:30 98.1 88 18 100/52 (68) 93 05/21/20 08:00 95 05/21/20 07:01 76 15 97 90 05/21/20 06:00 97.9 86 20 97/54 (68) 98 05/21/20 05:00 82 18 116/54 (74) 96 05/21/20 04:00 Bi-pap 05/21/20 04:00 78 17 90/43 (59) 96 05/21/20 04:00 78 05/21/20 04:00 95 05/21/20 03:13 84 19 98 100 05/21/20 03:00 77 17 98/45 (62) 96 05/21/20 02:00 81 19 90/50 (63) 98 05/21/20 01:00 80 17 82/37 (52) 99 05/21/20 00:00 80 05/21/20 00:00 97.9 80 19 98/50 (66) 100 05/21/20 00:00 95 05/21/20 00:00 Bi-pap 05/20/20 23:24 79 19 100 100 05/20/20 23:00 77 18 68/32 (44) 98 05/20/20 22:00 88 26 126/57 (80) 98 05/20/20 21:00 95/55 05/20/20 21:00 86 26 95/55 (68) 98 05/20/20 20:00 95 05/20/20 20:00 Bi-pap 05/20/20 20:00 97.7 84 21 95/54 (68) 99 05/20/20 20:00 84 05/20/20 19:30 88 29 98 100 05/20/20 16:00 Bi-pap 05/20/20 16:00 90 21 112/57 (75) 98 05/20/20 16:00 95 05/20/20 16:00 78 05/20/20 15:14 86 31 100 100 05/20/20 12:00 91 05/20/20 12:00 97.9 90 21 112/57 (75) 98 05/20/20 12:00 95 05/20/20 12:00 Bi-pap 05/20/20 10:45 90 30 95 100 Intake and Output 05/20/20 05/21/20 19:00 07:00 Output Total 75 ml 600 ml Balance -75 ml -600 ml Output Urine Total 75 ml 600 ml General Appearance: no acute distress Respiratory: chest wall non-tender, normal breath sounds Cardiovascular: normal peripheral pulses, normal rate Abdomen: normal bowel sounds Microbiology Date/Time Source Procedure Growth Status 05/19/20 13:00 Nasopharynx SARS-CoV-2 RdRp Gene Assay - Final Complete 05/19/20 12:45 Blood Blood Culture - Preliminary NO GROWTH AFTER 24 HOURS Resulted 05/19/20 12:45 Blood Blood Culture - Preliminary NO GROWTH AFTER 24 HOURS Resulted Laboratory Tests 05/20/20 11:40: Prothrombin Time 11.4, Prothromb Time International Ratio 1.0, Activated Partial Thromboplast Time 26 05/20/20 13:04: Body Fluid Source Thoracentesis, Body Fluid Volume 27 ml, Body Fluid Appearance Bloody/cloudy, [place] [address], Body Fluid Total Nucleated Cells 525, Body Fluid Polynuclear WBCs (%) 11, Body Fluid Mononuclear WBCs (%) 88, Body Fluid Mesothelial Cells (%) 1, Body Fluid Glucose [Pending], Body Fluid Total Protein [Pending], Body Fluid Lactate Dehydrogenase [Pending], Body Fluid Comment 05/21/20 04:35: White Blood Count 6.2, Red Blood Count 4.05L, Hemoglobin 11.6L, Hematocrit 36.5L , Mean Corpuscular Volume 90, Mean Corpuscular Hemoglobin 28.6, Mean Corpuscular Hemoglobin Concent 31.7L, Red Cell Distribution Width 15.3H, Platelet Count 292, Mean Platelet Volume 4.6L, Neutrophils (%) (Auto) 76.3H, Lymphocytes (%) (Auto) 15.8L, Monocytes (%) (Auto) 7.0, Eosinophils (%) (Auto) 0.6, Basophils (%) (Auto) 0.3 Current Medications Medications (Trade) Dose Ordered Sig/Jennie Route PRN Reason Start Time Stop Time Status Last Admin Dose Admin Acetaminophen (Tylenol) 500 mg Q6H PRN ORAL Mild Pain (Pain Scale 1-3) 05/19/20 16:45 06/18/20 16:44 Barium Sulfate (Varibar Honey) 250 ml NOW PRN RAD 05/19/20 17:00 05/22/20 16:46 Barium Sulfate (Varibar [place]) 240 ml NOW PRN RAD 05/19/20 17:00 05/22/20 16:46 Barium Sulfate (Varibar Pudding) 230 ml NOW PRN RAD 05/19/20 17:00 05/22/20 16:46 Barium Sulfate (Varibar Thin Liquid powder) 148 gm NOW PRN RAD 05/19/20 17:00 05/22/20 16:46 Ceftriaxone Sodium 1 gm/ Dextrose 55 ml @ 110 mls/hr Q24H IVPB 05/20/20 15:00 05/27/20 14:59 05/20/20 14:58 Clonidine HCl (Catapres tab) 0.2 mg Q4H PRN ORAL htn 05/19/20 17:15 08/17/20 17:14 Furosemide (Lasix) 40 mg EVERY 12 HOURS IV 05/19/20 21:00 06/18/20 20:59 05/21/20 09:38 Lisinopril (ZestriL) 10 mg EVERY 12 HOURS ORAL 05/19/20 21:00 06/18/20 20:59 Patient Own Medication (Patient's Own Med) 1 ea DAILY ORAL 05/20/20 09:00 06/19/20 08:59 05/21/20 09:35 Assessment/Plan Assessment/Plan IMPRESSION: 1. History of CML, on dasatinib. 2. Possible pneumonia. 3. Large pleural effusions, s/p thoracentesis. 4. Hypertension. 5. Elevated D-dimer DISCUSSION: S/p thoracentesis, CXR much improved; still has small pleural effusions left> right Agree with broad-spectrum antibiotics. Consider diuresis. I will follow. Cardiology following Will dc BiPAP Check ABg on nasal o2 Michelet Hernandez Omar Syed MD May 21, 2020 10:45
[2020-05-21] MEDS ORDERED: NS 500ML ONE (14:38)
[2020-05-21] MEDS ORDERED: Tubing IV Secondary IV ONE (14:38)
[2020-05-21] MEDS ORDERED: NS 275ml ONE (14:38)
[2020-05-21] MEDS: cefTRIAXone 1 GM in D5W 55 ML IVPB SCH (15:24)
--- NOTE | 2020-05-21 21:42 | General Progress Note ---
Subjective ROS Limited/Unobtainable: Yes Allergies: Coded Allergies: No Known Allergies (Unverified , 05/19/20) Objective Last 24 Hour Vital Signs Date Time Temp Pulse Resp B/P (MAP) Pulse Ox O2 Delivery O2 Flow Rate FiO2 05/21/20 19:30 94 22 94 90 05/21/20 16:00 93 05/21/20 16:00 98.1 99 18 103/58 (73) 95 05/21/20 16:00 90 05/21/20 16:00 Bi-pap 05/21/20 15:18 89 19 99 90 05/21/20 12:36 Bi-pap 05/21/20 12:00 90 05/21/20 12:00 98.4 89 18 106/59 (75) 96 05/21/20 11:27 82 05/21/20 10:31 101 28 93 90 05/21/20 09:30 96 103/55 (71) 05/21/20 09:00 100/52 05/21/20 08:30 98.1 88 18 100/52 (68) 93 05/21/20 08:00 90 05/21/20 08:00 Bi-pap 05/21/20 07:51 86 05/21/20 07:01 76 15 97 90 05/21/20 06:00 97.9 86 20 97/54 (68) 98 05/21/20 05:00 82 18 116/54 (74) 96 05/21/20 04:00 Bi-pap 05/21/20 04:00 78 17 90/43 (59) 96 05/21/20 04:00 78 05/21/20 04:00 95 05/21/20 03:13 84 19 98 100 05/21/20 03:00 77 17 98/45 (62) 96 05/21/20 02:00 81 19 90/50 (63) 98 05/21/20 01:00 80 17 82/37 (52) 99 05/21/20 00:00 80 05/21/20 00:00 97.9 80 19 98/50 (66) 100 05/21/20 00:00 95 05/21/20 00:00 Bi-pap 05/20/20 23:24 79 19 100 100 05/20/20 23:00 77 18 68/32 (44) 98 05/20/20 22:00 88 26 126/57 (80) 98 Intake and Output 05/20/20 05/21/20 19:00 07:00 Output Total 75 ml 600 ml Balance -75 ml -600 ml Output Urine Total 75 ml 600 ml Laboratory Tests 05/21/20 04:35: White Blood Count 6.2, Red Blood Count 4.05L, Hemoglobin 11.6L, Hematocrit 36.5L , Mean Corpuscular Volume 90, Mean Corpuscular Hemoglobin 28.6, Mean Corpuscular Hemoglobin Concent 31.7L, Red Cell Distribution Width 15.3H, Platelet Count 292, Mean Platelet Volume 4.6L, Neutrophils (%) (Auto) 76.3H, Lymphocytes (%) (Auto) 15.8L, Monocytes (%) (Auto) 7.0, Eosinophils (%) (Auto) 0.6, Basophils (%) (Auto) 0.3 Height (Feet): 5 Height (Inches): 0.00 Weight (Pounds): 100 Assessment/Plan Problem List: (1) Leukemia ICD Codes: C95.90 - Leukemia, unspecified not having achieved remission SNOMED: 00770655 (2) Bilateral pleural effusion ICD Codes: J90 - Pleural effusion, not elsewhere classified SNOMED: 543568260 Status: progressing Assessment/Plan: sob is improving afebrile s/p thoracocentesis leukemia bilat pleural effusion Tiara Jara MD May 21, 2020 21:42
[2020-05-22] VITALS (8 sets, daily range): BP systolic 72–113; BP diastolic 38–82
[2020-05-22 04:20] LABS: BASOPHILS % (AUTO) 0.5 % (0.0-2.0); EOSINOPHILS % (AUTO) 0.1 % (0.0-3.0); HEMATOCRIT 40.1 % (37.0-47.0); HEMOGLOBIN 12.9 G/DL (12.0-16.0); LYMPHOCYTES % (AUTO) 16.7 % (20.0-45.0); MEAN CORPUSCULAR VOLUME 90 FL (80-99); NEUTROPHILS % (AUTO) 76.7 % (45.0-75.0); PLATELET COUNT 375 K/UL (150-450); RED BLOOD COUNT 4.46 M/UL (4.20-5.40); RED CELL DISTRIBUTION WIDTH 15.2 % (11.6-14.8); WHITE BLOOD COUNT 10.8 K/UL (4.8-10.8)
--- NOTE | 2020-05-22 06:59 | Pulmonology Progress Note ---
Subjective ROS Limited/Unobtainable: Yes Interval Events: S/p large volume thoracentesis 05/20/20; feeling better Constitutional: Reports: no symptoms, other - feels better, transferred from ICU to [facility] HEENT: Repors: no symptoms Respiratory: Reports: dry cough Gastrointestinal/Abdominal: Reports: no symptoms Genitourinary: Reports: no symptoms Allergies: Coded Allergies: No Known Allergies (Unverified , 05/19/20) Objective Last 24 Hour Vital Signs Date Time Temp Pulse Resp B/P (MAP) Pulse Ox O2 Delivery O2 Flow Rate FiO2 05/22/20 04:00 92 05/22/20 04:00 Bi-pap 05/22/20 04:00 90 05/22/20 03:30 90 22 93 90 05/22/20 00:00 90 05/22/20 00:00 97.9 87 16 98/50 (66) 94 05/22/20 00:00 86 05/22/20 00:00 Bi-pap 05/21/20 23:37 86 17 94 90 05/21/20 21:00 103/53 05/21/20 20:00 Bi-pap 05/21/20 20:00 93 05/21/20 20:00 90 05/21/20 20:00 98.1 93 24 103/53 (70) 94 05/21/20 19:30 94 22 94 90 05/21/20 16:00 93 05/21/20 16:00 98.1 99 18 103/58 (73) 95 05/21/20 16:00 90 05/21/20 16:00 Bi-pap 05/21/20 15:18 89 19 99 90 05/21/20 12:36 Bi-pap 05/21/20 12:00 90 05/21/20 12:00 98.4 89 18 106/59 (75) 96 05/21/20 11:27 82 05/21/20 10:31 101 28 93 90 05/21/20 09:30 96 103/55 (71) 05/21/20 09:00 100/52 05/21/20 08:30 98.1 88 18 100/52 (68) 93 05/21/20 08:00 90 05/21/20 08:00 Bi-pap 05/21/20 07:51 86 9/24/20 07:01 76 15 97 90 Intake and Output 05/21/20 05/22/20 19:00 07:00 Intake Total 100 ml Output Total 850 ml Balance -750 ml Intake Oral 100 ml Output Urine Total 850 ml # Bowel Movements 2 3 General Appearance: no acute distress Respiratory: chest wall non-tender, normal breath sounds Cardiovascular: normal peripheral pulses, normal rate Abdomen: normal bowel sounds Microbiology Date/Time Source Procedure Growth Status 05/20/20 13:04 Thoracic Fluid Gram Stain Pending Resulted 05/20/20 13:04 Thoracic Fluid Body Fluid Culture - Preliminary Resulted 05/19/20 13:00 Nasopharynx SARS-CoV-2 RdRp Gene Assay - Final Complete 05/19/20 12:45 Blood Blood Culture - Preliminary NO GROWTH AFTER 48 HOURS Resulted 05/19/20 12:45 Blood Blood Culture - Preliminary NO GROWTH AFTER 48 HOURS Resulted Laboratory Tests 05/22/20 03:25: White Blood Count 10.8#, Red Blood Count 4.46, Hemoglobin 12.9, Hematocrit 40.1, Mean Corpuscular Volume 90, Mean Corpuscular Hemoglobin 28.9, Mean Corpuscular Hemoglobin Concent 32.2, Red Cell Distribution Width 15.2H, Platelet Count 375, Mean Platelet Volume 4.5L, Neutrophils (%) (Auto) 76.7H, Lymphocytes (%) (Auto) 16.7L, Monocytes (%) (Auto) 6.0, Eosinophils (%) (Auto) 0.1, Basophils (%) (Auto) 0.5 Current Medications Medications (Trade) Dose Ordered Sig/Jennie Route PRN Reason Start Time Stop Time Status Last Admin Dose Admin Acetaminophen (Tylenol) 500 mg Q6H PRN ORAL Mild Pain (Pain Scale 1-3) 05/19/20 16:45 06/18/20 16:44 Barium Sulfate (Varibar Honey) 250 ml NOW PRN MC RAD 05/19/20 17:00 05/22/20 16:46 Barium Sulfate (Varibar [place]) 240 ml NOW PRN MC RAD 05/19/20 17:00 05/22/20 16:46 Barium Sulfate (Varibar Pudding) 230 ml NOW PRN MC RAD 05/19/20 17:00 05/22/20 16:46 Barium Sulfate (Varibar Thin Liquid powder) 148 gm NOW PRN MC RAD 05/19/20 17:00 05/22/20 16:46 Ceftriaxone Sodium 1 gm/ Dextrose 55 ml @ 110 mls/hr Q24H IVPB 05/20/20 15:00 05/27/20 14:59 05/21/20 15:24 Clonidine HCl (Catapres tab) 0.2 mg Q4H PRN ORAL htn 05/19/20 17:15 08/17/20 17:14 Furosemide (Lasix) 40 mg EVERY 12 HOURS IV 05/19/20 21:00 06/18/20 20:59 05/21/20 09:38 Lisinopril (ZestriL) 10 mg EVERY 12 HOURS ORAL 05/19/20 21:00 06/18/20 20:59 Patient Own Medication (Patient's Own Med) 1 ea DAILY ORAL 05/20/20 09:00 05/25/20 23:59 05/21/20 09:35 Patient Own Medication (Patient's Own Med) 1 ea DAILY ORAL 05/26/20 09:00 06/25/20 08:59 Assessment/Plan Assessment/Plan IMPRESSION: 1. History of CML, on dasatinib. 2. Possible pneumonia. 3. Large pleural effusion, s/p thoracentesis. 4. Hypertension. 5. Elevated D-dimer DISCUSSION: S/p R thoracentesis, CXR much improved; still has pleural effusions l Will request left thoracenetsis Unable to wean off BiPAP Agree with broad-spectrum antibiotics. Consider diuresis. I will follow. Cardiology following Michelet Hernandez Omar Syed MD May 22, 2020 06:59
--- NOTE | 2020-05-22 08:34 | Hematology/Onc Progress Note ---
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, sees oncologist in [facility] [place] --> at this time STOP desatanib (also is the likely cause of pleural effusions) --> no is s/p thora per pulm/cards --> wbc trend 18 --> ABX ceftriaxone --> bipap, thora prn --> needs molecular and cytogenectic response for CML, f/u oncologist outpatient # Bilateral pleural effusion --> as per pulm, is on bipap --> thora as needed # HTN --> hydralazine and lisinopril --> sbp goal <140 # Dehydration --> goal of euvolemia # Elevated ddimer --> duplex lower ext r/o dvt==>neg # Dvt ppx scds Appreciate consultation and dw RN Subjective Constitutional: Denies: no symptoms, chills, fever, malaise, weakness, other Cardiovascular: Denies: no symptoms, chest pain, edema, irregular heart rate, lightheadedness, palpitations, syncope, other Respiratory: Denies: no symptoms, cough, shortness of breath, SOB with excertion, SOB at rest, sputum, wheezing, other Gastrointestinal/Abdominal: Denies: no symptoms, abdomen distended, abdominal pain, black stools, tarry stools, blood in stool, constipated, diarrhea, difficulty swallowing, nausea, poor appetite, poor fluid intake, rectal bleeding, vomiting, other Neurologic/Psychiatric: Denies: no symptoms, anxiety, depressed, emotional problems, headache, numbness, paresthesia, pre-existing deficit, seizure, tingling, tremors, weakness, other Endocrine: Denies: no symptoms, excessive sweating, flushing, intolerance to cold, intolerance to heat, increased hunger, increased thirst, increased urine, unexplained weight gain, unexplained weight loss, other Allergies: Coded Allergies: No Known Allergies (Unverified , 05/19/20) Subjective 05/21 labs are noted, no bleeding, with pleural effusions due to desatanbib, s/p thora 05/02 labs are noted, no bleeding, on bipap, i dw her today to stop her med at once Objective Objective Current Medications Medications (Trade) Dose Ordered Sig/Jennie Route PRN Reason Start Time Stop Time Status Last Admin Dose Admin Acetaminophen (Tylenol) 500 mg Q6H PRN ORAL Mild Pain (Pain Scale 1-3) 05/19/20 16:45 06/18/20 16:44 Barium Sulfate (Varibar Honey) 250 ml NOW PRN RAD 05/19/20 17:00 05/22/20 16:46 Barium Sulfate (Varibar [place]) 240 ml NOW PRN RAD 05/19/20 17:00 05/22/20 16:46 Barium Sulfate (Varibar Pudding) 230 ml NOW PRN RAD 05/19/20 17:00 05/22/20 16:46 Barium Sulfate (Varibar Thin Liquid powder) 148 gm NOW PRN RAD 05/19/20 17:00 05/22/20 16:46 Ceftriaxone Sodium 1 gm/ Dextrose 55 ml @ 110 mls/hr Q24H IVPB 05/20/20 15:00 05/27/20 14:59 05/21/20 15:24 Clonidine HCl (Catapres tab) 0.2 mg Q4H PRN ORAL htn 05/19/20 17:15 08/17/20 17:14 Furosemide (Lasix) 40 mg EVERY 12 HOURS IV 05/19/20 21:00 06/18/20 20:59 05/21/20 09:38 Lisinopril (ZestriL) 10 mg EVERY 12 HOURS ORAL 05/19/20 21:00 06/18/20 20:59 Patient Own Medication (Patient's Own Med) 1 ea DAILY ORAL 05/20/20 09:00 05/25/20 23:59 05/21/20 09:35 Patient Own Medication (Patient's Own Med) 1 ea DAILY ORAL 05/26/20 09:00 06/25/20 08:59 Last 24 Hour Vital Signs Date Time Temp Pulse Resp B/P (MAP) Pulse Ox O2 Delivery O2 Flow Rate FiO2 05/22/20 04:00 92 05/22/20 04:00 97.7 88 17 101/55 (70) 98 05/22/20 04:00 Bi-pap 05/22/20 04:00 90 05/22/20 03:30 90 22 93 90 05/22/20 00:00 90 05/22/20 00:00 97.9 87 16 98/50 (66) 94 05/22/20 00:00 86 05/22/20 00:00 Bi-pap 05/21/20 23:37 86 17 94 90 05/21/20 21:00 103/53 05/21/20 20:00 Bi-pap 05/21/20 20:00 93 05/21/20 20:00 90 05/21/20 20:00 98.1 93 24 103/53 (70) 94 05/21/20 19:30 94 22 94 90 05/21/20 16:00 93 05/21/20 16:00 98.1 99 18 103/58 (73) 95 05/21/20 16:00 90 05/21/20 16:00 Bi-pap 05/21/20 15:18 89 19 99 90 05/21/20 12:36 Bi-pap 05/21/20 12:00 90 05/21/20 12:00 98.4 89 18 106/59 (75) 96 05/21/20 11:27 82 05/21/20 10:31 101 28 93 90 05/21/20 09:30 96 103/55 (71) 05/21/20 09:00 100/52 05/21/20 08:30 98.1 88 18 100/52 (68) 93 05/21/20 08:00 90 05/21/20 08:00 Bi-pap 05/21/20 07:51 86 05/21/20 07:01 76 15 97 90 05/21/20 06:00 97.9 86 20 97/54 (68) 98 05/21/20 05:00 82 18 116/54 (74) 96 05/21/20 04:00 Bi-pap 05/21/20 04:00 78 17 90/43 (59) 96 05/21/20 04:00 78 05/21/20 04:00 95 05/21/20 03:13 84 19 98 100 05/21/20 03:00 77 17 98/45 (62) 96 05/21/20 02:00 81 19 90/50 (63) 98 05/21/20 01:00 80 17 82/37 (52) 99 05/21/20 00:00 80 05/21/20 00:00 97.9 80 19 98/50 (66) 100 05/21/20 00:00 95 05/21/20 00:00 Bi-pap 05/20/20 23:24 79 19 100 100 05/20/20 23:00 77 18 68/32 (44) 98 05/20/20 22:00 88 26 126/57 (80) 98 05/20/20 21:00 95/55 05/20/20 21:00 86 26 95/55 (68) 98 05/20/20 20:00 95 05/20/20 20:00 Bi-pap 05/20/20 20:00 97.7 84 21 95/54 (68) 99 05/20/20 20:00 84 05/20/20 19:30 88 29 98 100 05/20/20 16:00 Bi-pap 05/20/20 16:00 90 21 112/57 (75) 98 05/20/20 16:00 95 05/20/20 16:00 78 05/20/20 15:14 86 31 100 100 05/20/20 12:00 91 05/20/20 12:00 97.9 90 21 112/57 (75) 98 05/20/20 12:00 95 05/20/20 12:00 Bi-pap 05/20/20 10:45 90 30 95 100 Intake and Output 05/21/20 05/22/20 18:59 06:59 Intake Total 100 ml Output Total 910 ml 400 ml Balance -810 ml -400 ml Intake Oral 100 ml Output Urine Total 910 ml 400 ml # Bowel Movements 2 3 Labs Test 05/19/20 12:45 05/19/20 13:05 05/19/20 18:55 05/20/20 03:09 White Blood Count 18.1 K/UL (4.8-10.8) Red Blood Count 4.68 M/UL (4.20-5.40) Hemoglobin 13.6 G/DL (12.0-16.0) Hematocrit 41.6 % (37.0-47.0) Mean Corpuscular Volume 89 FL (80-99) Mean Corpuscular Hemoglobin 29.2 PG (27.0-31.0) Mean Corpuscular Hemoglobin Concent 32.8 G/DL (32.0-36.0) Red Cell Distribution Width 14.9 % (11.6-14.8) Platelet Count 337 K/UL (150-450) Mean Platelet Volume 3.9 FL (6.5-10.1) Neutrophils (%) (Auto) % (45.0-75.0) Lymphocytes (%) (Auto) % (20.0-45.0) Monocytes (%) (Auto) % (1.0-10.0) Eosinophils (%) (Auto) % (0.0-3.0) Basophils (%) (Auto) % (0.0-2.0) Differential Total Cells Counted 100 Neutrophils % (Manual) 54 % (45-75) Lymphocytes % (Manual) 45 % (20-45) Monocytes % (Manual) 1 % (1-10) Eosinophils % (Manual) 0 % (0-3) Basophils % (Manual) 0 % (0-2) Band Neutrophils 0 % (0-8) Platelet Estimate Adequate Platelet Morphology Normal Red Blood Cell Morphology Normal D-Dimer 2.44 mg/L FEU (0.00-0.49) Sodium Level 132 MMOL/L (136-145) Potassium Level 4.4 MMOL/L (3.5-5.1) Chloride Level 100 MMOL/L (98-107) Carbon Dioxide Level 23 MMOL/L (21-32) Anion Gap 9 mmol/L (5-15) Blood Urea Nitrogen 32 mg/dL (7-18) Creatinine 1.1 MG/DL (0.55-1.30) Estimat Glomerular Filtration Rate 50.5 mL/min (>60) Glucose Level 163 MG/DL (74-106) Lactic Acid Level 0.80 mmol/L (0.4-2.0) Calcium Level 9.2 MG/DL (8.5-10.1) Total Bilirubin 0.3 MG/DL (0.2-1.0) Aspartate Amino Transf (AST/SGOT) 36 U/L (15-37) Alanine Aminotransferase (ALT/SGPT) 32 U/L (12-78) Alkaline Phosphatase 85 U/L (46-116) Troponin I 0.000 ng/mL (0.000-0.056) 0.260 ng/mL (0.000-0.056) 0.085 ng/mL (0.000-0.056) Pro-B-Type Natriuretic Peptide 718 pg/mL (0-125) 2253 pg/mL (0-125) Total Protein 8.1 G/DL (6.4-8.2) Albumin 3.8 G/DL (3.4-5.0) Globulin 4.3 g/dL Albumin/Globulin Ratio 0.9 (1.0-2.7) Urine Color Pale yellow Urine Appearance Slightly cloudy Urine pH 5 (4.5-8.0) Urine Specific [place] 1.020 (1.005-1.035) Urine Protein 3+ (NEGATIVE) Urine Glucose (UA) Negative (NEGATIVE) Urine Ketones 1+ (NEGATIVE) Urine Blood 5+ (NEGATIVE) Urine Nitrite Negative (NEGATIVE) Urine Bilirubin Negative (NEGATIVE) Urine Urobilinogen Normal MG/DL (0.0-1.0) Urine Leukocyte Esterase 1+ (NEGATIVE) Urine RBC 5-10 /HPF (0 - 2) Urine WBC 2-4 /HPF (0 - 2) Urine Squamous Epithelial Cells Occasional /LPF Urine Bacteria Few /HPF (NONE) Thyroid Stimulating Hormone (TSH) 2.938 uiU/mL (0.358-3.740) Free Thyroxine 1.49 NG/DL (0.76-1.46) Test 05/20/20 11:40 05/20/20 13:04 05/21/20 04:35 05/22/20 03:25 Prothrombin Time 11.4 SEC (9.30-11.50) Prothromb Time International Ratio 1.0 (0.9-1.1) Activated Partial Thromboplast Time 26 SEC (23-33) Body Fluid Source Thoracentesis Body Fluid Volume 27 ml mL Body Fluid Appearance Bloody/cloudy (Clear) Body Fluid RBC 18650 /CUMM Body Fluid Total Nucleated Cells 525 /CUMM Body Fluid Polynuclear WBCs (%) 11 % Body Fluid Mononuclear WBCs (%) 88 % Body Fluid Mesothelial Cells (%) 1 % Body Fluid Glucose 105 mg/dL (.) Body Fluid Total Protein 4.5 g/dL (.) Body Fluid Lactate Dehydrogenase 126 IU/L (.) Body Fluid Comment White Blood Count 6.2 K/UL (4.8-10.8) 10.8 K/UL (4.8-10.8) Red Blood Count 4.05 M/UL (4.20-5.40) 4.46 M/UL (4.20-5.40) Hemoglobin 11.6 G/DL (12.0-16.0) 12.9 G/DL (12.0-16.0) Hematocrit 36.5 % (37.0-47.0) 40.1 % (37.0-47.0) Mean Corpuscular Volume 90 FL (80-99) 90 FL (80-99) Mean Corpuscular Hemoglobin 28.6 PG (27.0-31.0) 28.9 PG (27.0-31.0) Mean Corpuscular Hemoglobin Concent 31.7 G/DL (32.0-36.0) 32.2 G/DL (32.0-36.0) Red Cell Distribution Width 15.3 % (11.6-14.8) 15.2 % (11.6-14.8) Platelet Count 292 K/UL (150-450) 375 K/UL (150-450) Mean Platelet Volume 4.6 FL (6.5-10.1) 4.5 FL (6.5-10.1) Neutrophils (%) (Auto) 76.3 % (45.0-75.0) 76.7 % (45.0-75.0) Lymphocytes (%) (Auto) 15.8 % (20.0-45.0) 16.7 % (20.0-45.0) Monocytes (%) (Auto) 7.0 % (1.0-10.0) 6.0 % (1.0-10.0) Eosinophils (%) (Auto) 0.6 % (0.0-3.0) 0.1 % (0.0-3.0) Basophils (%) (Auto) 0.3 % (0.0-2.0) 0.5 % (0.0-2.0) Height (Feet): 5 Height (Inches): 0.00 Weight (Pounds): 100 Dionicio Higgins MD May 22, 2020 08:34
[2020-05-22] MEDS: Lisinopril 10mg tab ORAL SCH (08:58)
--- NOTE | 2020-05-22 09:34 | Cardiology Report ---
APPROVED REPORT EXAM: Two-dimensional and M-mode echocardiogram with Doppler and color Doppler. INDICATION Congestive Heart Failure M-Mode DIMENSIONS IVSd1.1 (0.7-1.1cm)Left Atrium (MM)3.2 (1.6-4.0cm) LVDd3.8 (3.5-5.6cm)Aortic Root2.3 (2.0-3.7cm) PWd1.1 (0.7-1.1cm)Aortic Cusp Exc.1.8 (1.5-2.0cm) IVSs1.4 cmEPSS0.6 (>1.0cm) LVDs2.3 (2.5-4.0cm) PWs1.6 cm <Conclusion> Poor parasternal windows due to patient on ventilator. Normal left ventricular chamber size, systolic function and wall motion. Left ventricular ejection fraction estimated to be 65 %. No evidence of left ventricular hypertrophy. Large bilateral pleural effusion with debris noted. All other cardiac chamber sizes are within normal limits. Focal aortic valve sclerosis with adequate cusp excursion. Thickened mitral valve leaflets with normal excursion. Mitral annulus and aortic root calcification. Pulmonic valve not well visualized. Normal tricuspid valve structure. IVC at normal size and collapsing with respiration. A color flow and spectral Doppler study was performed and revealed: No aortic regurgitation. Trace mitral regurgitation. Mitral diastolic velocities suggest reduced left ventricular relaxation c/w mild diastolic dysfunction (Grade I). Moderate tricuspid regurgitation. Tricuspid systolic velocities suggests peak right ventricular systolic pressure of 85 mmHg, consistent with severe pulmonary hypertension. Trace pulmonic regurgitation present.
--- NOTE | 2020-05-22 10:33 | Infectious Diseases Prog Note ---
Assessment/Plan Assessment/Plan IMPRESSION: Leukocytosis, resolved systemic inflammatory response syndrome or sepsis, Bilateral pleural effusion, s/p thoracentesis CML, Accelerated hypertension, Elevation of troponin. RECOMMENDATION: Continue with ceftriaxone. We will follow up the cultures. Subjective ROS Limited/Unobtainable: Yes Constitutional: Denies: fever Allergies: Coded Allergies: No Known Allergies (Unverified , 05/19/20) Objective Last 24 Hour Vital Signs Date Time Temp Pulse Resp B/P (MAP) Pulse Ox O2 Delivery O2 Flow Rate FiO2 05/22/20 08:58 99/57 05/22/20 08:00 Bi-pap 05/22/20 07:26 91 27 95 80 05/22/20 04:00 92 05/22/20 04:00 97.7 88 17 101/55 (70) 98 05/22/20 04:00 Bi-pap 05/22/20 04:00 90 05/22/20 03:30 90 22 93 90 05/22/20 00:00 90 05/22/20 00:00 97.9 87 16 98/50 (66) 94 05/22/20 00:00 86 05/22/20 00:00 Bi-pap 05/21/20 23:37 86 17 94 90 05/21/20 21:00 103/53 05/21/20 20:00 Bi-pap 05/21/20 20:00 93 05/21/20 20:00 90 05/21/20 20:00 98.1 93 24 103/53 (70) 94 05/21/20 19:30 94 22 94 90 05/21/20 16:00 93 05/21/20 16:00 98.1 99 18 103/58 (73) 95 05/21/20 16:00 90 05/21/20 16:00 Bi-pap 05/21/20 15:18 89 19 99 90 05/21/20 12:36 Bi-pap 05/21/20 12:00 90 05/21/20 12:00 98.4 89 18 106/59 (75) 96 05/21/20 11:27 82 Height (Feet): 5 Height (Inches): 0.00 Weight (Pounds): 100 General Appearance: no acute distress HEENT: mucous membranes moist Respiratory/Chest: lungs clear, other - on BIPAP Abdomen: soft, non tender Extremities: no edema Neurologic/Psychiatric: other - sleeping Microbiology Date/Time Source Procedure Growth Status 05/20/20 13:04 Thoracic Fluid Gram Stain Pending Resulted 05/20/20 13:04 Thoracic Fluid Body Fluid Culture - Preliminary Resulted 05/19/20 13:00 Nasopharynx SARS-CoV-2 RdRp Gene Assay - Final Complete 05/19/20 12:45 Blood Blood Culture - Preliminary NO GROWTH AFTER 48 HOURS Resulted 05/19/20 12:45 Blood Blood Culture - Preliminary NO GROWTH AFTER 48 HOURS Resulted Laboratory Tests Test 05/22/20 03:25 White Blood Count 10.8 K/UL (4.8-10.8) # Red Blood Count 4.46 M/UL (4.20-5.40) Hemoglobin 12.9 G/DL (12.0-16.0) Hematocrit 40.1 % (37.0-47.0) Mean Corpuscular Volume 90 FL (80-99) Mean Corpuscular Hemoglobin 28.9 PG (27.0-31.0) Mean Corpuscular Hemoglobin Concent 32.2 G/DL (32.0-36.0) Red Cell Distribution Width 15.2 % (11.6-14.8) H Platelet Count 375 K/UL (150-450) Mean Platelet Volume 4.5 FL (6.5-10.1) L Neutrophils (%) (Auto) 76.7 % (45.0-75.0) H Lymphocytes (%) (Auto) 16.7 % (20.0-45.0) L Monocytes (%) (Auto) 6.0 % (1.0-10.0) Eosinophils (%) (Auto) 0.1 % (0.0-3.0) Basophils (%) (Auto) 0.5 % (0.0-2.0) Current Medications Medications (Trade) Dose Ordered Sig/Jennie Route PRN Reason Start Time Stop Time Status Last Admin Dose Admin Acetaminophen (Tylenol) 500 mg Q6H PRN ORAL Mild Pain (Pain Scale 1-3) 05/19/20 16:45 06/18/20 16:44 Barium Sulfate (Varibar Honey) 250 ml NOW PRN MC RAD 05/19/20 17:00 05/22/20 16:46 Barium Sulfate (Varibar [place]) 240 ml NOW PRN MC RAD 05/19/20 17:00 05/22/20 16:46 Barium Sulfate (Varibar Pudding) 230 ml NOW PRN RAD 05/19/20 17:00 05/22/20 16:46 Barium Sulfate (Varibar Thin Liquid powder) 148 gm NOW PRN RAD 05/19/20 17:00 05/22/20 16:46 Ceftriaxone Sodium 1 gm/ Dextrose 55 ml @ 110 mls/hr Q24H IVPB 05/20/20 15:00 05/27/20 14:59 05/21/20 15:24 Clonidine HCl (Catapres tab) 0.2 mg Q4H PRN ORAL htn 05/19/20 17:15 08/17/20 17:14 Furosemide (Lasix) 40 mg EVERY 12 HOURS IV 05/19/20 21:00 06/18/20 20:59 05/22/20 08:58 Lisinopril (ZestriL) 10 mg EVERY 12 HOURS ORAL 05/19/20 21:00 06/18/20 20:59 Timothy Pennington MD May 22, 2020 10:33
[2020-05-22 11:33] LABS: BASOPHILS % (AUTO) 0.7 % (0.0-2.0); HEMOGLOBIN 13.5 G/DL (12.0-16.0); LYMPHOCYTES % (AUTO) 8.9 % (20.0-45.0); MEAN CORPUSCULAR VOLUME 90 FL (80-99); MONOCYTES % (AUTO) 5.5 % (1.0-10.0); NEUTROPHILS % (AUTO) 84.9 % (45.0-75.0); PLATELET COUNT 380 K/UL (150-450); RED BLOOD COUNT 4.68 M/UL (4.20-5.40); RED CELL DISTRIBUTION WIDTH 15.3 % (11.6-14.8); WHITE BLOOD COUNT 10.6 K/UL (4.8-10.8)
[2020-05-22 11:43] LABS: CALCIUM 9.1 MG/DL (8.5-10.1); CREATININE 2.7 MG/DL (0.55-1.30); POTASSIUM 5.1 MMOL/L (3.5-5.1)
[2020-05-22 11:55] LABS: ALBUMIN/GLOBULIN RATIO 0.7 (1.0-2.7); BILIRUBIN,TOTAL 0.4 MG/DL (0.2-1.0); PHOSPHORUS 6.7 MG/DL (2.5-4.9)
--- NOTE | 2020-05-22 12:48 | Consultation ---
Consult Note Consult Note I am asked to evaluate the patient at the request of Dr. Villagran for fluid and electrolyte management Day 3 of the patient's hospitalization here at [facility]. Records and data reviewed. New labs ordered HISTORY OF PRESENT ILLNESS: The patient is a 60-year-old female admitted yesterday because of shortness of breath that progressively worse for a week. The patient had oxygen desaturation at the time of transfer to the hospital. She was found to have bilateral pleural effusion and leukocytosis of 18.1. The patient was put on BiPAP and admitted to ICU. COVID-19 Screening Contact w/high risk pt: No Experienced COVID-19 symptoms?: No COVID-19 Testing performed THREAD TRIMMER: No PAST MEDICAL HISTORY: Significant for leukemia. Denies diabetes, but has hypertension and blood pressure at the time of admission was 191/97. PHYSICAL EXAMINATION: VITAL SIGNS: BP 95/85, pulse rate 88, afebrile HEAD AND NECK: [place] conjunctiva. HEART: Mid 80s, occasional irregular beats LUNGS: Decreased sounds bilaterally, previously on BiPAP. ABDOMEN: Soft and nontender. EXTREMITIES: No edema. NEUROLOGIC: Awake, alert, oriented x3. Laboratory data chest x-ray and consult notes reviewed . Assessment/Plan Imp: Acute renal failure, with sudden jump in serum creatinine to 2.7 History of leukemia Hypertension, now blood pressure is low Hyponatremia, resolved Bilateral pleural effusion. Status post paracentesis. Elevated troponin, most likely leak. Proteinuria Sugg: Stop lisinopril Stop Lasix Half Normal saline 100 cc an hour one liter only Albumin bolus Monitor renal parameters Avoid nephrotoxic's Montrell Carpio MD May 22, 2020 12:48
--- NOTE | 2020-05-22 13:00 | Cardiac Electrophysiology PN ---
Assessment/Plan Assessment/Plan 1. Accelerated hypertension. DCed Lsinopril and Lasix for acute renal failure 2. Troponin leak. Level low and no CP and renal failure 3. Bilateral pleural effusions. S/P Right side thoracentesis.On BIPAP. Further evaluation by Dr. Olson. 4. Hyponatremia. 5. History of leukemia. 6. Acute renal failure with sudden JUMP in creatinine to 2.7. FU Dr Carpio. DC lasix and Lisinopril DW RN, Dr Carpio and Dr. Olson Subjective Subjective S/P Right sided thoracentesis on 1.2 liters of serosanguineous fluid yesterday. On BIPAP. Alert in NAD. Objective Last 24 Hour Vital Signs Date Time Temp Pulse Resp B/P (MAP) Pulse Ox O2 Delivery O2 Flow Rate FiO2 05/22/20 12:00 Bi-pap 05/22/20 12:00 70 05/22/20 10:50 92 23 95 70 05/22/20 10:45 96 20 97 05/22/20 10:45 70 05/22/20 08:58 99/57 05/22/20 08:00 Bi-pap 05/22/20 08:00 80 05/22/20 08:00 96.8 95 22 99/57 (71) 93 05/22/20 07:49 102 05/22/20 07:26 91 27 95 80 05/22/20 04:00 92 05/22/20 04:00 97.7 88 17 101/55 (70) 98 05/22/20 04:00 Bi-pap 05/22/20 04:00 90 05/22/20 03:30 90 22 93 90 05/22/20 00:00 90 05/22/20 00:00 97.9 87 16 98/50 (66) 94 05/22/20 00:00 86 05/22/20 00:00 Bi-pap 05/21/20 23:37 86 17 94 90 05/21/20 21:00 103/53 05/21/20 20:00 Bi-pap 05/21/20 20:00 93 05/21/20 20:00 90 05/21/20 20:00 98.1 93 24 103/53 (70) 94 05/21/20 19:30 94 22 94 90 05/21/20 16:00 93 05/21/20 16:00 98.1 99 18 103/58 (73) 95 05/21/20 16:00 90 05/21/20 16:00 Bi-pap 05/21/20 15:18 89 19 99 90 Intake and Output 05/21/20 05/22/20 19:00 07:00 Intake Total 100 ml Output Total 850 ml 400 ml Balance -750 ml -400 ml Intake Oral 100 ml Output Urine Total 850 ml 400 ml # Bowel Movements 2 3 Laboratory Tests Test 05/22/20 03:25 05/22/20 11:15 White Blood Count 10.8 K/UL (4.8-10.8) # 10.6 K/UL (4.8-10.8) Red Blood Count 4.46 M/UL (4.20-5.40) 4.68 M/UL (4.20-5.40) Hemoglobin 12.9 G/DL (12.0-16.0) 13.5 G/DL (12.0-16.0) Hematocrit 40.1 % (37.0-47.0) 42.0 % (37.0-47.0) Mean Corpuscular Volume 90 FL (80-99) 90 FL (80-99) Mean Corpuscular Hemoglobin 28.9 PG (27.0-31.0) 29.0 PG (27.0-31.0) Mean Corpuscular Hemoglobin Concent 32.2 G/DL (32.0-36.0) 32.2 G/DL (32.0-36.0) Red Cell Distribution Width 15.2 % (11.6-14.8) H 15.3 % (11.6-14.8) H Platelet Count 375 K/UL (150-450) 380 K/UL (150-450) Mean Platelet Volume 4.5 FL (6.5-10.1) L 4.3 FL (6.5-10.1) L Neutrophils (%) (Auto) 76.7 % (45.0-75.0) H 84.9 % (45.0-75.0) H Lymphocytes (%) (Auto) 16.7 % (20.0-45.0) L 8.9 % (20.0-45.0) L Monocytes (%) (Auto) 6.0 % (1.0-10.0) 5.5 % (1.0-10.0) Eosinophils (%) (Auto) 0.1 % (0.0-3.0) 0.0 % (0.0-3.0) Basophils (%) (Auto) 0.5 % (0.0-2.0) 0.7 % (0.0-2.0) Sodium Level 141 MMOL/L (136-145) Potassium Level 5.1 MMOL/L (3.5-5.1) Chloride Level 105 MMOL/L (98-107) Carbon Dioxide Level 17 MMOL/L (21-32) L Anion Gap 19 mmol/L (5-15) H Blood Urea Nitrogen 71 mg/dL (7-18) H Creatinine 2.7 MG/DL (0.55-1.30) H Estimat Glomerular Filtration Rate 17.9 mL/min (>60) Glucose Level 166 MG/DL (74-106) H Osmolality 332 mOsm/kg (297-317) H Uric Acid 13.0 MG/DL (2.6-7.2) H Calcium Level 9.1 MG/DL (8.5-10.1) Phosphorus Level 6.7 MG/DL (2.5-4.9) H Magnesium Level 2.8 MG/DL (1.8-2.4) H Total Bilirubin 0.4 MG/DL (0.2-1.0) Aspartate Amino Transf (AST/SGOT) 16 U/L (15-37) Alanine Aminotransferase (ALT/SGPT) 16 U/L (12-78) Alkaline Phosphatase 66 U/L (46-116) C-Reactive Protein, Quantitative 16.7 mg/dL (0.00-0.90) H Pro-B-Type Natriuretic Peptide 906 pg/mL (0-125) H Total Protein 7.2 G/DL (6.4-8.2) Albumin 3.0 G/DL (3.4-5.0) L Globulin 4.2 g/dL Albumin/Globulin Ratio 0.7 (1.0-2.7) L Thyroid Stimulating Hormone (TSH) 1.404 uiU/mL (0.358-3.740) Microbiology Date/Time Source Procedure Growth Status 05/20/20 13:04 Thoracic Fluid Gram Stain Pending Resulted 05/20/20 13:04 Thoracic Fluid Body Fluid Culture - Preliminary Resulted 05/19/20 13:00 Nasopharynx SARS-CoV-2 RdRp Gene Assay - Final Complete Objective HEAD AND NECK: No JVD. LUNGS: Decreased breath sounds. CARDIOVASCULAR: Regular S1 and S2 and tachycardic. ABDOMEN: Soft. EXTREMITIES: No pitting edema. Cristian England MD May 22, 2020 13:00
[2020-05-22] MEDS ORDERED: LIPITOR20 MG ORAL (13:08)
[2020-05-22] MEDS ORDERED: ERGOCALCIFEROL PO (13:08)
[2020-05-22] MEDS ORDERED: ASPIRIN EC81 MG ORAL (13:08)
--- NOTE | 2020-05-22 14:50 | Cardiology Report ---
APPROVED REPORT EKG Measurement Heart [id number] [id number] <Conclusion> Sinus tachycardia with short [place] Septal infarct, age undetermined Abnormal ECG
--- NOTE | 2020-05-22 14:59 | Pre-Procedure Note/Attestation ---
Pre-Procedure Note/Attestation Complete Prior to Procedure Planned Procedure: left Procedure Narrative: Thoracentesis Indications for Procedure Pre-Operative Diagnosis: pleural effusion Attestation I attest that I discussed the nature of the procedure; its benefits; risks and complications; and alternatives (and the risks and benefits of such alternatives), prior to the procedure, with the patient (or the patient's legal customer operations representative). I attest that, if there was a reasonable possibility of needing a blood mccain sfusion, the patient (or the patient's legal customer operations representative) was given the [facility] standardized written summary, pursuant to the Jose Juan Stephanie Blood Safety Act ([place] Health and Safety Code # 1645, as amended). I attest that I re-evaluated the patient just prior to the surgery and that there has been no change in the patient's H&P, except as documented below: Hany Chacon MD May 22, 2020 14:59
--- NOTE | 2020-05-22 15:00 | Brief Operative Note ---
Immediate Post Operative Note Operative Note Pre-op Diagnosis: pleural effusion Procedure: L thoracentesis Post-op Diagnosis: same as pre-op Surgeon: Noah Baca Anesthesia: local Specimen: yes - 50 ml fluid collected for analysis if necessary Complications: none Condition: stable Fluids: none Implant(s) used?: No Hany Baca MD May 22, 2020 15:00
[2020-05-22] MEDS: cefTRIAXone 1 GM in D5W 55 ML IVPB SCH (15:20)
--- NOTE | 2020-05-22 16:48 | Diagnostic Imaging Report ---
Indications: Pleural effusion Technique: Ultrasound used to localize optimal puncture site. Sterile prepping and draping left chest. Local anesthesia with 1% lidocaine. Under real-time ultrasound guidance, puncture pleural space using thoracentesis needle. Stylet removed. Catheter placed to vacuum bottle suction. Total 1200 milliliters of cloudy bloody fluid aspirated. Patient tolerated procedure well, without immediate complication. Findings: Followup sonography demonstrates near complete resolution of pleural fluid. Impression: Successful ultrasound-guided thoracentesis, yielding 1200 milliliters of fluid
--- NOTE | 2020-05-22 16:52 | Diagnostic Imaging Report ---
Indication: Status post thoracentesis Technique: One view of the chest Comparison: 05/20/2020 Findings: Interim of marked improvement of previously demonstrated left pleural effusion, with some residual costophrenic angle blunting. No pneumothorax. There is evidence of reaccumulating right pleural fluid. The lungs are grossly clear. The heart size is normal. Impression: Markedly improved left pleural effusion, status post thoracentesis. No radiographically evident complication Evidence of reaccumulating right pleural effusion
[2020-05-22] MEDS: Docusate 100mg cap ORAL SCH (17:27)
--- NOTE | 2020-05-22 21:41 | General Progress Note ---
Subjective ROS Limited/Unobtainable: Yes Allergies: Coded Allergies: No Known Allergies (Unverified , 05/19/20) Objective Last 24 Hour Vital Signs Date Time Temp Pulse Resp B/P (MAP) Pulse Ox O2 Delivery O2 Flow Rate FiO2 05/22/20 20:00 14.0 55 05/22/20 20:00 Venturi Mask 14.0 05/22/20 20:00 98.0 89 20 113/59 (77) 91 05/22/20 19:32 95 05/22/20 19:30 28 05/22/20 17:00 97.7 98 20 104/82 (89) 95 05/22/20 16:00 96 20 95 05/22/20 16:00 Nasal Cannula 2.0 05/22/20 16:00 93 05/22/20 15:39 28 05/22/20 15:30 30 05/22/20 15:30 86 20 95/45 (62) 97 05/22/20 15:28 35 05/22/20 15:18 50 05/22/20 15:00 50 05/22/20 14:30 88 20 72/38 (49) 100 05/22/20 12:00 96.1 98 20 107/58 (74) 96 05/22/20 12:00 98 05/22/20 12:00 Bi-pap 05/22/20 12:00 70 05/22/20 10:50 92 23 95 70 05/22/20 10:45 96 20 97 05/22/20 10:45 70 05/22/20 08:58 99/57 05/22/20 08:00 Bi-pap 05/22/20 08:00 80 05/22/20 08:00 96.8 95 22 99/57 (71) 93 05/22/20 07:49 102 05/22/20 07:26 91 27 95 80 05/22/20 04:00 92 05/22/20 04:00 97.7 88 17 101/55 (70) 98 05/22/20 04:00 Bi-pap 05/22/20 04:00 90 05/22/20 03:30 90 22 93 90 05/22/20 00:00 90 05/22/20 00:00 97.9 87 16 98/50 (66) 94 05/22/20 00:00 86 05/22/20 00:00 Bi-pap 05/21/20 23:37 86 17 94 90 Intake and Output 05/21/20 05/22/20 19:00 07:00 Intake Total 100 ml Output Total 850 ml 400 ml Balance -750 ml -400 ml Intake Oral 100 ml Output Urine Total 850 ml 400 ml # Bowel Movements 2 3 Laboratory Tests 05/22/20 03:25: White Blood Count 10.8#, Red Blood Count 4.46, Hemoglobin 12.9, Hematocrit 40.1, Mean Corpuscular Volume 90, Mean Corpuscular Hemoglobin 28.9, Mean Corpuscular Hemoglobin Concent 32.2, Red Cell Distribution Width 15.2H, Platelet Count 375, Mean Platelet Volume 4.5L, Neutrophils (%) (Auto) 76.7H, Lymphocytes (%) (Auto) 16.7L, Monocytes (%) (Auto) 6.0, Eosinophils (%) (Auto) 0.1, Basophils (%) (Auto) 0.5 05/22/20 11:15: White Blood Count 10.6, Red Blood Count 4.68, Hemoglobin 13.5, Hematocrit 42.0, Mean Corpuscular Volume 90, Mean Corpuscular Hemoglobin 29.0, Mean Corpuscular Hemoglobin Concent 32.2, Red Cell Distribution Width 15.3H, Platelet Count 380, Mean Platelet Volume 4.3L, Neutrophils (%) (Auto) 84.9H, Lymphocytes (%) (Auto) 8.9L, Monocytes (%) (Auto) 5.5, Eosinophils (%) (Auto) 0.0, Basophils (%) (Auto) 0.7, Sodium Level 141, Potassium Level 5.1, Chloride Level 105, Carbon Dioxide Level 17L, Anion Gap 19H, Blood Urea Nitrogen 71H, Creatinine 2.7H, Estimat Glomerular Filtration Rate 17.9, Glucose Level 166H, Osmolality 332H, Uric Acid 13.0H, Calcium Level 9.1, Phosphorus Level 6.7H, Magnesium Level 2.8H, Total Bilirubin 0.4, Aspartate Amino Transf (AST/SGOT) 16, Alanine Aminotransferase (ALT/SGPT) 16, Alkaline Phosphatase 66, C-Reactive Protein, Quantitative 16.7H, Pro-B-Type Natriuretic Peptide 906H, Total Protein 7.2, Albumin 3.0L, Globulin 4.2, Albumin/Globulin Ratio 0.7L, Thyroid Stimulating Hormone (TSH) 1.404 05/22/20 14:05: Body Fluid Glucose [Pending], Body Fluid Total Protein [Pending], Body Fluid Lactate Dehydrogenase [Pending] Height (Feet): 5 Height (Inches): 0.00 Weight (Pounds): 100 Assessment/Plan Problem List: (1) Leukemia ICD Codes: C95.90 - Leukemia, unspecified not having achieved remission SNOMED: 75050718 (2) Bilateral pleural effusion ICD Codes: J90 - Pleural effusion, not elsewhere classified SNOMED: 006302950 Status: progressing Assessment/Plan: afebrile still npo still sob arf hydration per renal dr s/p thoracocenesis leukemia bilat pleural effusion Tiara Jara MD May 22, 2020 21:41
--- NOTE | 2020-05-22 23:37 | General Progress Note ---
Subjective Allergies: Coded Allergies: No Known Allergies (Unverified , 05/19/20) Objective Last 24 Hour Vital Signs Date Time Temp Pulse Resp B/P (MAP) Pulse Ox O2 Delivery O2 Flow Rate FiO2 05/22/20 20:00 14.0 55 05/22/20 20:00 Venturi Mask 14.0 05/22/20 20:00 98.0 89 20 113/59 (77) 91 05/22/20 19:32 95 05/22/20 19:30 28 05/22/20 17:00 97.7 98 20 104/82 (89) 95 05/22/20 16:00 96 20 95 05/22/20 16:00 Nasal Cannula 2.0 05/22/20 16:00 93 05/22/20 15:39 28 05/22/20 15:30 30 05/22/20 15:30 86 20 95/45 (62) 97 05/22/20 15:28 35 05/22/20 15:18 50 05/22/20 15:00 50 05/22/20 14:30 88 20 72/38 (49) 100 05/22/20 12:00 96.1 98 20 107/58 (74) 96 05/22/20 12:00 98 05/22/20 12:00 Bi-pap 05/22/20 12:00 70 05/22/20 10:50 92 23 95 70 05/22/20 10:45 96 20 97 05/22/20 10:45 70 05/22/20 08:58 99/57 05/22/20 08:00 Bi-pap 05/22/20 08:00 80 05/22/20 08:00 96.8 95 22 99/57 (71) 93 05/22/20 07:49 102 05/22/20 07:26 91 27 95 80 05/22/20 04:00 92 05/22/20 04:00 97.7 88 17 101/55 (70) 98 05/22/20 04:00 Bi-pap 05/22/20 04:00 90 05/22/20 03:30 90 22 93 90 05/22/20 00:00 90 05/22/20 00:00 97.9 87 16 98/50 (66) 94 05/22/20 00:00 86 05/22/20 00:00 Bi-pap 05/21/20 23:37 86 17 94 90 Intake and Output 05/21/20 05/22/20 19:00 07:00 Intake Total 100 ml Output Total 850 ml 400 ml Balance -750 ml -400 ml Intake Oral 100 ml Output Urine Total 850 ml 400 ml # Bowel Movements 2 3 Laboratory Tests 05/22/20 03:25: White Blood Count 10.8#, Red Blood Count 4.46, Hemoglobin 12.9, Hematocrit 40.1, Mean Corpuscular Volume 90, Mean Corpuscular Hemoglobin 28.9, Mean Corpuscular Hemoglobin Concent 32.2, Red Cell Distribution Width 15.2H, Platelet Count 375, Mean Platelet Volume 4.5L, Neutrophils (%) (Auto) 76.7H, Lymphocytes (%) (Auto) 16.7L, Monocytes (%) (Auto) 6.0, Eosinophils (%) (Auto) 0.1, Basophils (%) (Auto) 0.5 05/22/20 11:15: White Blood Count 10.6, Red Blood Count 4.68, Hemoglobin 13.5, Hematocrit 42.0, Mean Corpuscular Volume 90, Mean Corpuscular Hemoglobin 29.0, Mean Corpuscular Hemoglobin Concent 32.2, Red Cell Distribution Width 15.3H, Platelet Count 380, Mean Platelet Volume 4.3L, Neutrophils (%) (Auto) 84.9H, Lymphocytes (%) (Auto) 8.9L, Monocytes (%) (Auto) 5.5, Eosinophils (%) (Auto) 0.0, Basophils (%) (Auto) 0.7, Sodium Level 141, Potassium Level 5.1, Chloride Level 105, Carbon Dioxide Level 17L, Anion Gap 19H, Blood Urea Nitrogen 71H, Creatinine 2.7H, Estimat Glomerular Filtration Rate 17.9, Glucose Level 166H, Osmolality 332H, Uric Acid 13.0H, Calcium Level 9.1, Phosphorus Level 6.7H, Magnesium Level 2.8H, Total Bilirubin 0.4, Aspartate Amino Transf (AST/SGOT) 16, Alanine Aminotransferase (ALT/SGPT) 16, Alkaline Phosphatase 66, C-Reactive Protein, Quantitative 16.7H, Pro-B-Type Natriuretic Peptide 906H, Total Protein 7.2, Albumin 3.0L, Globulin 4.2, Albumin/Globulin Ratio 0.7L, Thyroid Stimulating Hormone (TSH) 1.404 05/22/20 14:05: Body Fluid Glucose [Pending], Body Fluid Total Protein [Pending], Body Fluid Lactate Dehydrogenase [Pending] Height (Feet): 5 Height (Inches): 0.00 Weight (Pounds): 100 Assessment/Plan Status: progressing Assessment/Plan: Assessment - Respiratory failure - pleural effusions, s/p thoracentesis - Renal failure - Malnutrition - Elevated troponin - HTN - CML Recommendations - Pulmonary management - wean off BIPAP - can place NGT once cleared by pulmonary - follow labs and exam Antonio Ratliff MD May 22, 2020 23:36
[2020-05-23] VITALS: BP 119/57
[2020-05-23 04:00] VITALS: BP 107/59
[2020-05-23 05:22] LABS: BASOPHILS % (AUTO) 0.5 % (0.0-2.0); EOSINOPHILS % (AUTO) 1.5 % (0.0-3.0); HEMATOCRIT 35.2 % (37.0-47.0); HEMOGLOBIN 11.5 G/DL (12.0-16.0); LYMPHOCYTES % (AUTO) 9.5 % (20.0-45.0); MEAN CORPUSCULAR VOLUME 89 FL (80-99); MONOCYTES % (AUTO) 7.4 % (1.0-10.0); NEUTROPHILS % (AUTO) 81.1 % (45.0-75.0); PLATELET COUNT 284 K/UL (150-450); RED BLOOD COUNT 3.96 M/UL (4.20-5.40); RED CELL DISTRIBUTION WIDTH 14.9 % (11.6-14.8); WHITE BLOOD COUNT 7.4 K/UL (4.8-10.8)
[2020-05-23 05:36] LABS: ALBUMIN 2.9 G/DL (3.4-5.0); ALBUMIN/GLOBULIN RATIO 0.9 (1.0-2.7); BILIRUBIN,TOTAL 0.4 MG/DL (0.2-1.0); CALCIUM 8.2 MG/DL (8.5-10.1); CREATININE 1.6 MG/DL (0.55-1.30); POTASSIUM 4.5 MMOL/L (3.5-5.1)
--- NOTE | 2020-05-23 05:44 | Consultation ---
DATE OF CONSULTATION: 05/22/2020 GASTROENTEROLOGY CONSULTATION CONSULTING PHYSICIAN: Antonio Ratliff M.D. CHIEF COMPLAINT: I was asked to see this patient by Dr. Tiara Jara today for evaluation of nutrition and feeding. HISTORY OF PRESENT ILLNESS: The patient is an unfortunate 60-year-old woman with a history of chronic myelogenous lymphoma, who is admitted to the hospital due to bilateral pleural effusions and shortness of breath. The patient had this for about 2 weeks prior to admission, and during the hospitalization has been placed on BiPAP mask for respiratory support. The patient therefore has not been able to be fed due to the BiPAP mask and inability to come off of it. The patient has been for several days without eating. She denies any abdominal pain, nausea, vomiting, and attempts have been made to wean the patient off the BiPAP. She has also had bilateral thoracentesis in an effort to increase the lung capacity for ventilatory support. PAST MEDICAL HISTORY: History of CML, hypertension, pleural effusions, renal failure. FAMILY HISTORY: Noncontributory. SOCIAL HISTORY: The patient has had no smoking or drinking history of significant. REVIEW OF SYSTEMS: Otherwise negative. PHYSICAL EXAMINATION: GENERAL: Thin debilitated woman, seen in her room with the nurse at bedside with a BiPAP mask on. HEENT: BiPAP mask was on. NECK: Supple. CHEST: Clear to auscultation. CARDIOVASCULAR: Revealed a regular rate. ABDOMEN: Soft, nontender. EXTREMITIES: Revealed no edema. LABORATORY DATA: Noted. ASSESSMENT: This patient has respiratory failure, which is significant and has required round the clock BiPAP use. The patient reportedly cannot tolerate off the BiPAP at this time and therefore feeding by mouth has not been feasible. A nasogastric tube feed can be placed to support her nutritional needs, but I would wait until the patient has been deemed cleared from a pulmonary standpoint to have this placed. For the time being, the patient will be kept NPO until she is able to come off the BiPAP machine, at least at some point she can be fed for meals, oral. She is stable for nasogastric tube placement. We will discuss the management with Pulmonary services. RECOMMENDATIONS: Per above discussion and per orders written in the chart. Thank you for asking me to participate in the care of this patient. Antonio Ratliff M.D. DR: LESLEY JOB#: [id number] CC:
[2020-05-23] MEDS: Docusate 100mg cap ORAL SCH ×2 (08:11→17:45)
[2020-05-23 08:21] VITALS: BP 104/56
--- NOTE | 2020-05-23 10:34 | Pulmonology Progress Note ---
Subjective ROS Limited/Unobtainable: Yes Interval Events: S/p large volume thoracentesis 05/20/20; feeling better Constitutional: Denies: fever HEENT: Repors: no symptoms Respiratory: Reports: dry cough Gastrointestinal/Abdominal: Reports: no symptoms Genitourinary: Reports: no symptoms Allergies: Coded Allergies: No Known Allergies (Unverified , 05/19/20) Objective Last 24 Hour Vital Signs Date Time Temp Pulse Resp B/P (MAP) Pulse Ox O2 Delivery O2 Flow Rate FiO2 05/23/20 08:21 97.0 94 22 104/56 (72) 94 05/23/20 08:00 95 05/23/20 08:00 15.0 05/23/20 08:00 Venturi Mask 55.0 05/23/20 07:05 92 55 05/23/20 04:00 98 05/23/20 04:00 15.0 05/23/20 04:00 Non-Rebreather 15.0 05/23/20 04:00 97.7 85 20 107/59 (75) 90 05/23/20 00:12 89 97 05/23/20 00:00 98.3 94 20 119/57 (77) 90 05/23/20 00:00 15.0 05/23/20 00:00 Non-Rebreather 15.0 05/22/20 23:41 97 05/22/20 20:00 14.0 55 05/22/20 20:00 Venturi Mask 14.0 05/22/20 20:00 98.0 89 20 113/59 (77) 91 05/22/20 19:32 95 05/22/20 19:30 28 05/22/20 17:00 97.7 98 20 104/82 (89) 95 05/22/20 16:00 96 20 95 05/22/20 16:00 Nasal Cannula 2.0 05/22/20 16:00 93 05/22/20 15:39 28 05/22/20 15:30 30 05/22/20 15:30 86 20 95/45 (62) 97 05/22/20 15:28 35 05/22/20 15:18 50 05/22/20 15:00 50 05/22/20 14:30 88 20 72/38 (49) 100 05/22/20 12:00 96.1 98 20 107/58 (74) 96 05/22/20 12:00 98 05/22/20 12:00 Bi-pap 05/22/20 12:00 70 05/22/20 10:50 92 23 95 70 05/22/20 10:45 96 20 97 05/22/20 10:45 70 Intake and Output 05/22/20 05/23/20 19:00 07:00 Intake Total 300 ml 460 ml Output Total 550 ml 450 ml Balance -250 ml 10 ml Intake Oral 200 ml 60 ml IV Total 100 ml 400 ml Output Urine Total 550 ml 450 ml # Bowel Movements 2 General Appearance: no acute distress Respiratory: chest wall non-tender, normal breath sounds Cardiovascular: normal peripheral pulses, normal rate Abdomen: normal bowel sounds Microbiology Date/Time Source Procedure Growth Status 05/20/20 13:04 Thoracic Fluid Gram Stain - Final Resulted 05/20/20 13:04 Thoracic Fluid Body Fluid Culture - Preliminary NO GROWTH AFTER 48 HOURS Resulted Laboratory Tests 05/22/20 11:15: White Blood Count 10.6, Red Blood Count 4.68, Hemoglobin 13.5, Hematocrit 42.0, Mean Corpuscular Volume 90, Mean Corpuscular Hemoglobin 29.0, Mean Corpuscular Hemoglobin Concent 32.2, Red Cell Distribution Width 15.3H, Platelet Count 380, Mean Platelet Volume 4.3L, Neutrophils (%) (Auto) 84.9H, Lymphocytes (%) (Auto) 8.9L, Monocytes (%) (Auto) 5.5, Eosinophils (%) (Auto) 0.0, Basophils (%) (Auto) 0.7, Sodium Level 141, Potassium Level 5.1, Chloride Level 105, Carbon Dioxide Level 17L, Anion Gap 19H, Blood Urea Nitrogen 71H, Creatinine 2.7H, Estimat Glomerular Filtration Rate 17.9, Glucose Level 166H, Osmolality 332H, Uric Acid 13.0H, Calcium Level 9.1, Phosphorus Level 6.7H, Magnesium Level 2.8H, Total Bilirubin 0.4, Aspartate Amino Transf (AST/SGOT) 16, Alanine Aminotransferase (ALT/SGPT) 16, Alkaline Phosphatase 66, C-Reactive Protein, Quantitative 16.7H, Pro-B-Type Natriuretic Peptide 906H, Total Protein 7.2, Albumin 3.0L, Globulin 4.2, Albumin/Globulin Ratio 0.7L, Thyroid Stimulating Hormone (TSH) 1.404 05/22/20 14:05: Body Fluid Glucose [Pending], Body Fluid Total Protein [Pending], Body Fluid Lactate Dehydrogenase [Pending] 05/23/20 03:15: White Blood Count 7.4, Red Blood Count 3.96L, Hemoglobin 11.5L, Hematocrit 35.2L , Mean Corpuscular Volume 89, Mean Corpuscular Hemoglobin 29.0, Mean Corpuscular Hemoglobin Concent 32.6, Red Cell Distribution Width 14.9H, Platelet Count 284, Mean Platelet Volume 4.6L, Neutrophils (%) (Auto) 81.1H, Lymphocytes (%) (Auto) 9.5L, Monocytes (%) (Auto) 7.4, Eosinophils (%) (Auto) 1.5, Basophils (%) (Auto) 0.5, Sodium Level 138, Potassium Level 4.5, Chloride Level 106, Carbon Dioxide Level 22, Anion Gap 10, Blood Urea Nitrogen 59H, Creatinine 1.6H, Estimat Glomerular Filtration Rate 32.8, Glucose Level 115H, Uric Acid 10.9H, Calcium Level 8.2L, Phosphorus Level 3.0, Magnesium Level 2.5H, Total Bilirubin 0.4, Aspartate Amino Transf (AST/SGOT) 16, Alanine Aminotransferase (ALT/SGPT) 13, Alkaline Phosphatase 49, C-Reactive Protein, Quantitative 12.3H, Pro-B-Type Natriuretic Peptide 887H, Total Protein 6.1L, Albumin 2.9L, Globulin 3.2, Albumin/Globulin Ratio 0.9L Current Medications Medications (Trade) Dose Ordered Sig/Jennie Route PRN Reason Start Time Stop Time Status Last Admin Dose Admin Acetaminophen (Tylenol) 500 mg Q6H PRN ORAL Mild Pain (Pain Scale 1-3) 05/19/20 16:45 06/18/20 16:44 Ceftriaxone Sodium 1 gm/ Dextrose 55 ml @ 110 mls/hr Q24H IVPB 05/20/20 15:00 05/27/20 14:59 05/22/20 15:20 Docusate Sodium (Colace) 100 mg TWICE A DAY ORAL 05/22/20 18:00 06/21/20 17:59 05/23/20 08:11 Pantoprazole (Protonix) 40 mg Q12HR ORAL 9/25/20 21:00 06/21/20 20:59 05/23/20 08:12 Assessment/Plan Assessment/Plan IMPRESSION: 1. History of CML, on dasatinib. 2. Possible pneumonia. 3. Large pleural effusion, s/p thoracentesis. 4. Hypertension. 5. Elevated D-dimer DISCUSSION: S/p R thoracentesis, CXR much improved; repeat tap noted wean off BiPAP broad-spectrum antibiotics. Cardiology following impression, plan, and exam edited and reviewed in detail care discussed with Ifeanyi Rosas MD May 23, 2020 10:33
--- NOTE | 2020-05-23 11:21 | Nephrology Progress Note ---
Assessment/Plan Problem List: (1) ASHLEY (acute kidney injury) (2) Bilateral pleural effusion (3) Leukemia Assessment Imp: Acute renal failure, with sudden jump in serum creatinine to 2.7 History of leukemia Hypertension, now hypotensive Hyponatremia on admission, improved Bilateral pleural effusion. Status post paracentesis. Elevated troponin, most likely leak. Plan Today renal parameters are improved. Serum creatinine down to 1.6 from 2.7 Continue to hold lisinopril Continue to hold Lasix Half Normal saline 100 cc an hour one liter only was given yesterday Albumin bolus given yesterday, repeat as needed Monitor renal parameters Avoid nephrotoxic's Subjective ROS Limited/Unobtainable: No Constitutional: Reports: malaise Objective Objective Last 24 Hour Vital Signs Date Time Temp Pulse Resp B/P (MAP) Pulse Ox O2 Delivery O2 Flow Rate FiO2 05/23/20 08:21 97.0 94 22 104/56 (72) 94 05/23/20 08:00 95 05/23/20 08:00 15.0 05/23/20 08:00 Venturi Mask 55.0 05/23/20 07:05 92 55 05/23/20 04:00 98 05/23/20 04:00 15.0 05/23/20 04:00 Non-Rebreather 15.0 05/23/20 04:00 97.7 85 20 107/59 (75) 90 05/23/20 00:12 89 97 05/23/20 00:00 98.3 94 20 119/57 (77) 90 05/23/20 00:00 15.0 05/23/20 00:00 Non-Rebreather 15.0 05/22/20 23:41 97 05/22/20 20:00 14.0 55 05/22/20 20:00 Venturi Mask 14.0 05/22/20 20:00 98.0 89 20 113/59 (77) 91 05/22/20 19:32 95 05/22/20 19:30 28 05/22/20 17:00 97.7 98 20 104/82 (89) 95 05/22/20 16:00 96 20 95 05/22/20 16:00 Nasal Cannula 2.0 05/22/20 16:00 93 05/22/20 15:39 28 05/22/20 15:30 30 05/22/20 15:30 86 20 95/45 (62) 97 05/22/20 15:28 35 05/22/20 15:18 50 05/22/20 15:00 50 05/22/20 14:30 88 20 72/38 (49) 100 05/22/20 12:00 96.1 98 20 107/58 (74) 96 05/22/20 12:00 98 05/22/20 12:00 Bi-pap 05/22/20 12:00 70 Intake and Output 05/22/20 05/23/20 19:00 07:00 Intake Total 300 ml 460 ml Output Total 550 ml 450 ml Balance -250 ml 10 ml Intake Oral 200 ml 60 ml IV Total 100 ml 400 ml Output Urine Total 550 ml 450 ml # Bowel Movements 2 Current Medications Medications (Trade) Dose Ordered Sig/Jennie Route PRN Reason Start Time Stop Time Status Last Admin Dose Admin Acetaminophen (Tylenol) 500 mg Q6H PRN ORAL Mild Pain (Pain Scale 1-3) 05/19/20 16:45 06/18/20 16:44 Ceftriaxone Sodium 1 gm/ Dextrose 55 ml @ 110 mls/hr Q24H IVPB 05/20/20 15:00 05/27/20 14:59 05/22/20 15:20 Docusate Sodium (Colace) 100 mg TWICE A DAY ORAL 05/22/20 18:00 06/21/20 17:59 05/23/20 08:11 Pantoprazole (Protonix) 40 mg Q12HR ORAL 05/22/20 21:00 06/21/20 20:59 05/23/20 08:12 Current Medications Medications (Trade) Dose Ordered Sig/Jennie Route PRN Reason Start Time Stop Time Status Last Admin Dose Admin Acetaminophen (Tylenol) 500 mg Q6H PRN ORAL Mild Pain (Pain Scale 1-3) 05/19/20 16:45 06/18/20 16:44 Ceftriaxone Sodium 1 gm/ Dextrose 55 ml @ 110 mls/hr Q24H IVPB 05/20/20 15:00 05/27/20 14:59 05/22/20 15:20 Docusate Sodium (Colace) 100 mg TWICE A DAY ORAL 05/22/20 18:00 06/21/20 17:59 05/23/20 08:11 Pantoprazole (Protonix) 40 mg Q12HR ORAL 05/22/20 21:00 06/21/20 20:59 05/23/20 08:12 Laboratory Tests 05/22/20 14:05: Body Fluid Glucose [Pending], Body Fluid Total Protein [Pending], Body Fluid Lactate Dehydrogenase [Pending] 05/23/20 03:15: White Blood Count 7.4, Red Blood Count 3.96L, Hemoglobin 11.5L, Hematocrit 35.2L , Mean Corpuscular Volume 89, Mean Corpuscular Hemoglobin 29.0, Mean Corpuscular Hemoglobin Concent 32.6, Red Cell Distribution Width 14.9H, Platelet Count 284, Mean Platelet Volume 4.6L, Neutrophils (%) (Auto) 81.1H, Lymphocytes (%) (Auto) 9.5L, Monocytes (%) (Auto) 7.4, Eosinophils (%) (Auto) 1.5, Basophils (%) (Auto) 0.5, Sodium Level 138, Potassium Level 4.5, Chloride Level 106, Carbon Dioxide Level 22, Anion Gap 10, Blood Urea Nitrogen 59H, Creatinine 1.6H, Estimat Glomerular Filtration Rate 32.8, Glucose Level 115H, Uric Acid 10.9H, Calcium Level 8.2L, Phosphorus Level 3.0, Magnesium Level 2.5H, Total Bilirubin 0.4, Aspartate Amino Transf (AST/SGOT) 16, Alanine Aminotransferase (ALT/SGPT) 13, Alkaline Phosphatase 49, C-Reactive Protein, Quantitative 12.3H, Pro-B-Type Natriuretic Peptide 887H, Total Protein 6.1L, Albumin 2.9L, Globulin 3.2, Albumin/Globulin Ratio 0.9L Height (Feet): 5 Height (Inches): 0.00 Weight (Pounds): 100 General Appearance: no apparent distress Cardiovascular: tachycardia Respiratory/Chest: decreased breath sounds Abdomen: soft Montrell Carpio MD May 23, 2020 11:21
[2020-05-23 12:49] VITALS: BP 125/70
[2020-05-23] MEDS: cefTRIAXone 1 GM in D5W 55 ML IVPB SCH (14:43)
--- NOTE | 2020-05-23 15:46 | Cardiac Electrophysiology PN ---
Assessment/Plan Assessment/Plan 1. Accelerated hypertension. Now off Lisinopril and Lasix for acute renal failure 2. Troponin leak. Level low and no CP and renal failure 3. Bilateral pleural effusions. S/P Right side thoracentesis. Results pending Further evaluation by Dr. Olson. 4. Hyponatremia. 5. CML x 5 years, sees oncologist in [facility] area --> at this time STOP desatanib (also is the likely cause of pleural effusions) Per Dr Dolan 6. Acute renal failure with sudden JUMP in creatinine to 2.7. FU Dr Carpio. Better after iv fluid, Albumin and off lasix and Lisinopril Cr now 1.[address] Carpio Subjective Subjective S/P Right sided thoracentesis on 1.2 liters of serosanguineous fluid 05/21/20. BIPAP changed to 55% Venturi Mask. Alert in NAD. Objective Last 24 Hour Vital Signs Date Time Temp Pulse Resp B/P (MAP) Pulse Ox O2 Delivery O2 Flow Rate FiO2 05/23/20 12:50 90 05/23/20 12:49 97.7 95 21 125/70 (88) 93 05/23/20 12:45 Venturi Mask 55.0 05/23/20 12:25 55.0 05/23/20 11:16 94 55 05/23/20 08:21 97.0 94 22 104/56 (72) 94 05/23/20 08:00 95 05/23/20 08:00 15.0 05/23/20 08:00 Venturi Mask 55.0 05/23/20 07:05 92 55 05/23/20 04:00 98 05/23/20 04:00 15.0 05/23/20 04:00 Non-Rebreather 15.0 05/23/20 04:00 97.7 85 20 107/59 (75) 90 05/23/20 00:12 89 97 05/23/20 00:00 98.3 94 20 119/57 (77) 90 05/23/20 00:00 15.0 05/23/20 00:00 Non-Rebreather 15.0 05/22/20 23:41 97 05/22/20 20:00 14.0 55 05/22/20 20:00 Venturi Mask 14.0 05/22/20 20:00 98.0 89 20 113/59 (77) 91 05/22/20 19:32 95 05/22/20 19:30 28 05/22/20 17:00 97.7 98 20 104/82 (89) 95 05/22/20 16:00 96 20 95 05/22/20 16:00 Nasal Cannula 2.0 05/22/20 16:00 93 Intake and Output 05/22/20 05/23/20 19:00 07:00 Intake Total 300 ml 460 ml Output Total 550 ml 450 ml Balance -250 ml 10 ml Intake Oral 200 ml 60 ml IV Total 100 ml 400 ml Output Urine Total 550 ml 450 ml # Bowel Movements 2 Laboratory Tests Test 05/23/20 03:15 White Blood Count 7.4 K/UL (4.8-10.8) Red Blood Count 3.96 M/UL (4.20-5.40) L Hemoglobin 11.5 G/DL (12.0-16.0) L Hematocrit 35.2 % (37.0-47.0) L Mean Corpuscular Volume 89 FL (80-99) Mean Corpuscular Hemoglobin 29.0 PG (27.0-31.0) Mean Corpuscular Hemoglobin Concent 32.6 G/DL (32.0-36.0) Red Cell Distribution Width 14.9 % (11.6-14.8) H Platelet Count 284 K/UL (150-450) Mean Platelet Volume 4.6 FL (6.5-10.1) L Neutrophils (%) (Auto) 81.1 % (45.0-75.0) H Lymphocytes (%) (Auto) 9.5 % (20.0-45.0) L Monocytes (%) (Auto) 7.4 % (1.0-10.0) Eosinophils (%) (Auto) 1.5 % (0.0-3.0) Basophils (%) (Auto) 0.5 % (0.0-2.0) Sodium Level 138 MMOL/L (136-145) Potassium Level 4.5 MMOL/L (3.5-5.1) Chloride Level 106 MMOL/L (98-107) Carbon Dioxide Level 22 MMOL/L (21-32) Anion Gap 10 mmol/L (5-15) Blood Urea Nitrogen 59 mg/dL (7-18) H Creatinine 1.6 MG/DL (0.55-1.30) H Estimat Glomerular Filtration Rate 32.8 mL/min (>60) Glucose Level 115 MG/DL (74-106) H Uric Acid 10.9 MG/DL (2.6-7.2) H Calcium Level 8.2 MG/DL (8.5-10.1) L Phosphorus Level 3.0 MG/DL (2.5-4.9) Magnesium Level 2.5 MG/DL (1.8-2.4) H Total Bilirubin 0.4 MG/DL (0.2-1.0) Aspartate Amino Transf (AST/SGOT) 16 U/L (15-37) Alanine Aminotransferase (ALT/SGPT) 13 U/L (12-78) Alkaline Phosphatase 49 U/L (46-116) C-Reactive Protein, Quantitative 12.3 mg/dL (0.00-0.90) H Pro-B-Type Natriuretic Peptide 887 pg/mL (0-125) H Total Protein 6.1 G/DL (6.4-8.2) L Albumin 2.9 G/DL (3.4-5.0) L Globulin 3.2 g/dL Albumin/Globulin Ratio 0.9 (1.0-2.7) L Objective HEAD AND NECK: No JVD. On Venturi Mask LUNGS: Decreased breath sounds. CARDIOVASCULAR: Regular S1 and S2 and tachycardic. ABDOMEN: Soft. EXTREMITIES: No pitting edema. Cristian England MD May 23, 2020 15:46
--- NOTE | 2020-05-23 15:48 | General Progress Note ---
Subjective Allergies: Coded Allergies: No Known Allergies (Unverified , 05/19/20) Subjective above noted now on face mask feels OK Objective Last 24 Hour Vital Signs Date Time Temp Pulse Resp B/P (MAP) Pulse Ox O2 Delivery O2 Flow Rate FiO2 05/23/20 12:50 90 05/23/20 12:49 97.7 95 21 125/70 (88) 93 05/23/20 12:45 Venturi Mask 55.0 05/23/20 12:25 55.0 05/23/20 11:16 94 55 05/23/20 08:21 97.0 94 22 104/56 (72) 94 05/23/20 08:00 95 05/23/20 08:00 15.0 05/23/20 08:00 Venturi Mask 55.0 05/23/20 07:05 92 55 05/23/20 04:00 98 05/23/20 04:00 15.0 05/23/20 04:00 Non-Rebreather 15.0 05/23/20 04:00 97.7 85 20 107/59 (75) 90 05/23/20 00:12 89 97 05/23/20 00:00 98.3 94 20 119/57 (77) 90 05/23/20 00:00 15.0 05/23/20 00:00 Non-Rebreather 15.0 05/22/20 23:41 97 05/22/20 20:00 14.0 55 05/22/20 20:00 Venturi Mask 14.0 05/22/20 20:00 98.0 89 20 113/59 (77) 91 05/22/20 19:32 95 05/22/20 19:30 28 05/22/20 17:00 97.7 98 20 104/82 (89) 95 05/22/20 16:00 96 20 95 05/22/20 16:00 Nasal Cannula 2.0 05/22/20 16:00 93 Intake and Output 05/22/20 05/23/20 19:00 07:00 Intake Total 300 ml 460 ml Output Total 550 ml 450 ml Balance -250 ml 10 ml Intake Oral 200 ml 60 ml IV Total 100 ml 400 ml Output Urine Total 550 ml 450 ml # Bowel Movements 2 Laboratory Tests 05/23/20 03:15: White Blood Count 7.4, Red Blood Count 3.96L, Hemoglobin 11.5L, Hematocrit 35.2L , Mean Corpuscular Volume 89, Mean Corpuscular Hemoglobin 29.0, Mean Corpuscular Hemoglobin Concent 32.6, Red Cell Distribution Width 14.9H, Platelet Count 284, Mean Platelet Volume 4.6L, Neutrophils (%) (Auto) 81.1H, Lymphocytes (%) (Auto) 9.5L, Monocytes (%) (Auto) 7.4, Eosinophils (%) (Auto) 1.5, Basophils (%) (Auto) 0.5, Sodium Level 138, Potassium Level 4.5, Chloride Level 106, Carbon Dioxide Level 22, Anion Gap 10, Blood Urea Nitrogen 59H, Creatinine 1.6H, Estimat Glomerular Filtration Rate 32.8, Glucose Level 115H, Uric Acid 10.9H, Calcium Level 8.2L, Phosphorus Level 3.0, Magnesium Level 2.5H, Total Bilirubin 0.4, Aspartate Amino Transf (AST/SGOT) 16, Alanine Aminotransferase (ALT/SGPT) 13, Alkaline Phosphatase 49, C-Reactive Protein, Quantitative 12.3H, Pro-B-Type Natr iuretic Peptide 887H, Total Protein 6.1L, Albumin 2.9L, Globulin 3.2, Albumin/Globulin Ratio 0.9L Height (Feet): 5 Height (Inches): 0.00 Weight (Pounds): 100 Objective NCAT supple Coarse BS RR abd soft no edema Assessment/Plan Status: progressing Assessment/Plan: Assessment - Respiratory failure - improving - pleural effusions, s/p thoracentesis - Renal failure - Malnutrition - Elevated troponin - HTN - CML Recommendations - Pulmonary management - check swallow evaluation - follow labs and exam Antonio Ratliff MD May 23, 2020 15:47
[2020-05-23 16:00] VITALS: BP 137/74
[2020-05-23 20:00] VITALS: BP 116/67
--- NOTE | 2020-05-23 21:37 | General Progress Note ---
Subjective ROS Limited/Unobtainable: Yes Allergies: Coded Allergies: No Known Allergies (Unverified , 05/19/20) Objective Last 24 Hour Vital Signs Date Time Temp Pulse Resp B/P (MAP) Pulse Ox O2 Delivery O2 Flow Rate FiO2 05/23/20 20:00 15.0 05/23/20 20:00 98.4 95 21 116/67 (83) 96 05/23/20 18:43 96 100 05/23/20 16:36 15.0 05/23/20 16:35 103 05/23/20 16:32 Non-Rebreather 15.0 05/23/20 16:00 97.7 103 20 137/74 (95) 98 05/23/20 15:50 95 100 05/23/20 12:50 90 05/23/20 12:49 97.7 95 21 125/70 (88) 93 05/23/20 12:45 Venturi Mask 55.0 05/23/20 12:25 55.0 05/23/20 11:16 94 55 05/23/20 08:21 97.0 94 22 104/56 (72) 94 05/23/20 08:00 95 05/23/20 08:00 15.0 05/23/20 08:00 Venturi Mask 55.0 05/23/20 07:05 92 55 05/23/20 04:00 98 05/23/20 04:00 15.0 05/23/20 04:00 Non-Rebreather 15.0 05/23/20 04:00 97.7 85 20 107/59 (75) 90 05/23/20 00:12 89 97 05/23/20 00:00 98.3 94 20 119/57 (77) 90 05/23/20 00:00 15.0 05/23/20 00:00 Non-Rebreather 15.0 05/22/20 23:41 97 Intake and Output 05/22/20 05/23/20 19:00 07:00 Intake Total 300 ml 460 ml Output Total 550 ml 450 ml Balance -250 ml 10 ml Intake Oral 200 ml 60 ml IV Total 100 ml 400 ml Output Urine Total 550 ml 450 ml # Bowel Movements 2 Laboratory Tests 05/23/20 03:15: White Blood Count 7.4, Red Blood Count 3.96L, Hemoglobin 11.5L, Hematocrit 35.2L , Mean Corpuscular Volume 89, Mean Corpuscular Hemoglobin 29.0, Mean Corpuscular Hemoglobin Concent 32.6, Red Cell Distribution Width 14.9H, Platelet Count 284, Mean Platelet Volume 4.6L, Neutrophils (%) (Auto) 81.1H, Lymphocytes (%) (Auto) 9.5L, Monocytes (%) (Auto) 7.4, Eosinophils (%) (Auto) 1.5, Basophils (%) (Auto) 0.5, Sodium Level 138, Potassium Level 4.5, Chloride Level 106, Carbon Dioxide Level 22, Anion Gap 10, Blood Urea Nitrogen 59H, Creatinine 1.6H, Estimat Glomerular Filtration Rate 32.8, Glucose Level 115H, Uric Acid 10.9H, Calcium Level 8.2L, Phosphorus Level 3.0, Magnesium Level 2.5H, Total Bilirubin 0.4, Aspartate Amino Transf (AST/SGOT) 16, Alanine Aminotransferase (ALT/SGPT) 13, Alkaline Phosphatase 49, C-Reactive Protein, Quantitative 12.3H, Pro-B-Type Natriuretic Peptide 887H, Total Protein 6.1L, Albumin 2.9L, Globulin 3.2, Albumin/Globulin Ratio 0.9L Height (Feet): 5 Height (Inches): 0.00 Weight (Pounds): 100 Assessment/Plan Problem List: (1) Leukemia ICD Codes: C95.90 - Leukemia, unspecified not having achieved remission SNOMED: 53082806 (2) Bilateral pleural effusion ICD Codes: J90 - Pleural effusion, not elsewhere classified SNOMED: 140657230 Status: progressing Assessment/Plan: renal failure sob resp insuff reviewed chart and labs s/p thoracocenesis leukemia bilat pleural effusion Tiara Jara MD May 23, 2020 21:37
[2020-05-24] VITALS: BP 124/68
[2020-05-24 04:00] VITALS: BP 125/72
[2020-05-24 05:31] LABS: ALANINE AMINOTRANSFERASE 15 U/L (12-78); ALBUMIN 2.5 G/DL (3.4-5.0); ALBUMIN/GLOBULIN RATIO 0.7 (1.0-2.7); ALKALINE PHOSPHATASE 52 U/L (46-116); ANION GAP 7 mmol/L (5-15); ASPARTATE AMINO TRANSFERASE 28 U/L (15-37); BILIRUBIN,TOTAL 0.3 MG/DL (0.2-1.0); BLOOD UREA NITROGEN 35 mg/dL (7-18); CALCIUM 8.7 MG/DL (8.5-10.1); CARBON DIOXIDE 27 MMOL/L (21-32); CHLORIDE 102 MMOL/L (98-107); CHOLESTEROL 173 MG/DL (< 200); GAMMA GLUTAMYL TRANSPEPTIDASE 5 U/L (5-85); HDL CHOLESTEROL 54 MG/DL (40-60); PHOSPHORUS 3.3 MG/DL (2.5-4.9); POTASSIUM 5.4 MMOL/L (3.5-5.1); SODIUM 135 MMOL/L (136-145); TRIGLYCERIDES 172 MG/DL (30-150)
[2020-05-24 08:00] VITALS: BP 130/72
[2020-05-24] MEDS ORDERED: Sodium Polystyrene Sulfonate 15gm Powder ORAL SCH (08:15)
[2020-05-24] MEDS: Docusate 100mg cap ORAL SCH ×2 (08:52→18:00)
--- NOTE | 2020-05-24 09:13 | Nephrology Progress Note ---
Assessment/Plan Problem List: (1) ASHLEY (acute kidney injury) (2) Bilateral pleural effusion (3) Leukemia Assessment Imp: Acute renal failure, with sudden jump in serum creatinine to 2.7 History of leukemia Hypertension, now hypotensive Hyponatremia on admission, improved Bilateral pleural effusion. Status post paracentesis. Elevated troponin, most likely leak. Plan May 24: Renal parameters normalized. Will give the Lasix 40 mg IV once. 1 dose of Kayexalate for hyperkalemia. Continue to monitor renal parameters. Previously: Today renal parameters are improved. Serum creatinine down to 1.6 from 2.7 Continue to hold lisinopril Continue to hold Lasix Half Normal saline 100 cc an hour one liter only was given yesterday Albumin bolus given yesterday, repeat as needed Monitor renal parameters Avoid nephrotoxic's Subjective ROS Limited/Unobtainable: No Constitutional: Reports: malaise Objective Objective Last 24 Hour Vital Signs Date Time Temp Pulse Resp B/P (MAP) Pulse Ox O2 Delivery O2 Flow Rate FiO2 05/24/20 08:57 117 05/24/20 08:00 97.1 107 21 130/72 (91) 96 05/24/20 07:24 94 100 05/24/20 04:00 Non-Rebreather 15.0 05/24/20 04:00 15.0 05/24/20 04:00 104 05/24/20 04:00 97.8 98 20 125/72 (89) 97 05/24/20 02:42 96 100 05/24/20 00:00 Non-Rebreather 15.0 05/24/20 00:00 97.7 95 20 124/68 (86) 97 05/23/20 23:35 92 05/23/20 22:35 97 100 05/23/20 20:00 Non-Rebreather 15.0 05/23/20 20:00 15.0 05/23/20 20:00 97 05/23/20 20:00 98.4 95 21 116/67 (83) 96 05/23/20 18:43 96 100 05/23/20 16:36 15.0 05/23/20 16:35 103 05/23/20 16:32 Non-Rebreather 15.0 05/23/20 16:00 97.7 103 20 137/74 (95) 98 05/23/20 15:50 95 100 05/23/20 12:50 90 05/23/20 12:49 97.7 95 21 125/70 (88) 93 05/23/20 12:45 Venturi Mask 55.0 05/23/20 12:25 55.0 05/23/20 11:16 94 55 Intake and Output 05/23/20 05/24/20 18:59 06:59 Intake Total 550 ml 400 ml Output Total 900 ml 400 ml Balance -350 ml 0 ml Intake Oral 500 ml 400 ml IV Total 50 ml Output Urine Total 900 ml 400 ml # Bowel Movements 2 Current Medications Medications (Trade) Dose Ordered Sig/Jennie Route PRN Reason Start Time Stop Time Status Last Admin Dose Admin Acetaminophen (Tylenol) 500 mg Q6H PRN ORAL Mild Pain (Pain Scale 1-3) 05/19/20 16:45 06/18/20 16:44 Ceftriaxone Sodium 1 gm/ Dextrose 55 ml @ 110 mls/hr Q24H IVPB 05/20/20 15:00 05/27/20 14:59 05/23/20 14:43 Docusate Sodium (Colace) 100 mg TWICE A DAY ORAL 05/22/20 18:00 06/21/20 17:59 05/24/20 08:52 Furosemide (Lasix) 40 mg ONCE IV 05/24/20 08:15 05/24/20 09:30 05/24/20 08:52 Pantoprazole (Protonix) 40 mg Q12HR ORAL 05/22/20 21:00 06/21/20 20:59 05/24/20 08:52 Sodium Polystyrene Sulfonate (Kayexalate) 30 gm ONCE ORAL 05/24/20 08:15 05/24/20 09:30 05/24/20 08:52 Laboratory Tests 05/24/20 03:41: Sodium Level 135L, Potassium Level 5.4H, Chloride Level 102, Carbon Dioxide Level 27, Anion Gap 7, Blood Urea Nitrogen 35H, Creatinine 1.0, Estimat Glomerular Filtration Rate 56.4, Glucose Level 123H, Hemoglobin A1c 5.9, Uric Acid 6.5, Calcium Level 8.7, Phosphorus Level 3.3, Magnesium Level 2.5H, Total Bilirubin 0.3, Gamma Glutamyl Transpeptidase 5, Aspartate Amino Transf (AST/SGOT) 28, Alanine Aminotransferase (ALT/SGPT) 15, Alkaline Phosphatase 52, Total Protein 6.3L, Albumin 2.5L, Globulin 3.8, Albumin/Globulin Ratio 0.7L, Triglycerides Level 172H, Cholesterol Level 173, LDL Cholesterol 87, HDL Cholesterol 54, Cholesterol/HDL Ratio 3.2L, Cortisol AM Sample [Pending] Height (Feet): 5 Height (Inches): 0.00 Weight (Pounds): 100 General Appearance: no apparent distress EENT: other - On nonrebreather mask Cardiovascular: tachycardia Respiratory/Chest: decreased breath sounds Abdomen: distended Montrell Carpio MD May 24, 2020 09:13
--- NOTE | 2020-05-24 09:38 | Pulmonology Progress Note ---
Subjective ROS Limited/Unobtainable: No Constitutional: Reports: anorexia; Denies: fever HEENT: Repors: no symptoms Respiratory: Reports: dry cough Gastrointestinal/Abdominal: Reports: no symptoms Genitourinary: Reports: no symptoms Allergies: Coded Allergies: No Known Allergies (Unverified , 05/19/20) Subjective care noted on 100% oxygen Objective Last 24 Hour Vital Signs Date Time Temp Pulse Resp B/P (MAP) Pulse Ox O2 Delivery O2 Flow Rate FiO2 05/24/20 08:57 117 05/24/20 08:00 97.1 107 21 130/72 (91) 96 05/24/20 07:24 94 100 05/24/20 04:00 Non-Rebreather 15.0 05/24/20 04:00 15.0 05/24/20 04:00 104 05/24/20 04:00 97.8 98 20 125/72 (89) 97 05/24/20 02:42 96 100 05/24/20 00:00 Non-Rebreather 15.0 05/24/20 00:00 97.7 95 20 124/68 (86) 97 05/23/20 23:35 92 05/23/20 22:35 97 100 05/23/20 20:00 Non-Rebreather 15.0 05/23/20 20:00 15.0 05/23/20 20:00 97 05/23/20 20:00 98.4 95 21 116/67 (83) 96 05/23/20 18:43 96 100 05/23/20 16:36 15.0 05/23/20 16:35 103 05/23/20 16:32 Non-Rebreather 15.0 05/23/20 16:00 97.7 103 20 137/74 (95) 98 05/23/20 15:50 95 100 05/23/20 12:50 90 05/23/20 12:49 97.7 95 21 125/70 (88) 93 05/23/20 12:45 Venturi Mask 55.0 05/23/20 12:25 55.0 05/23/20 11:16 94 55 Intake and Output 05/23/20 05/24/20 19:00 07:00 Intake Total 550 ml 400 ml Output Total 900 ml 400 ml Balance -350 ml 0 ml Intake Oral 500 ml 400 ml IV Total 50 ml Output Urine Total 900 ml 400 ml # Bowel Movements 2 General Appearance: no acute distress Respiratory: chest wall non-tender, normal breath sounds, no respiratory distress, no accessory muscle use, decreased breath sounds Cardiovascular: normal peripheral pulses, normal rate Abdomen: normal bowel sounds Extremities: no cyanosis, no clubbing, no edema Laboratory Tests 05/24/20 03:41: Sodium Level 135L, Potassium Level 5.4H, Chloride Level 102, Carbon Dioxide Level 27, Anion Gap 7, Blood Urea Nitrogen 35H, Creatinine 1.0, Estimat Glomerular Filtration Rate 56.4, Glucose Level 123H, Hemoglobin A1c 5.9, Uric Acid 6.5, Calcium Level 8.7, Phosphorus Level 3.3, Magnesium Level 2.5H, Total Bilirubin 0.3, Gamma Glutamyl Transpeptidase 5, Aspartate Amino Transf (AST/SGOT) 28, Alanine Aminotransferase (ALT/SGPT) 15, Alkaline Phosphatase 52, Total Protein 6.3L, Albumin 2.5L, Globulin 3.8, Albumin/Globulin Ratio 0.7L, Triglycerides Level 172H, Cholesterol Level 173, LDL Cholesterol 87, HDL Cholesterol 54, Cholesterol/HDL Ratio 3.2L, Cortisol AM Sample [Pending] Current Medications Medications (Trade) Dose Ordered Sig/Jennie Route PRN Reason Start Time Stop Time Status Last Admin Dose Admin Acetaminophen (Tylenol) 500 mg Q6H PRN ORAL Mild Pain (Pain Scale 1-3) 05/19/20 16:45 06/18/20 16:44 Ceftriaxone Sodium 1 gm/ Dextrose 55 ml @ 110 mls/hr Q24H IVPB 05/20/20 15:00 05/27/20 14:59 05/23/20 14:43 Docusate Sodium (Colace) 100 mg TWICE A DAY ORAL 05/22/20 18:00 06/21/20 17:59 05/24/20 08:52 Pantoprazole (Protonix) 40 mg Q12HR ORAL 05/22/20 21:00 06/21/20 20:59 05/24/20 08:52 Assessment/Plan Assessment/Plan IMPRESSION: 1. History of CML, on dasatinib. 2. Possible pneumonia. 3. Large pleural effusion, s/p thoracentesis. 4. Hypertension. 5. Elevated D-dimer 6. Hypoxemic respiratory failure DISCUSSION: S/p R thoracentesis, monitor imaging repeat tap noted monitor off BiPAP broad-spectrum antibiotics. Cardiology following may need PlueRX if fluid recurs oxygen at high flow repeat CXR and ABG still full code and may need ICU impression, plan, and exam edited and reviewed in detail care discussed with Ifeanyi Rosas MD May 24, 2020 09:38
--- NOTE | 2020-05-24 10:02 | Diagnostic Imaging Report ---
EXAM: XR Chest, 1 View CLINICAL HISTORY: SOB TECHNIQUE: Frontal view of the chest. COMPARISON: Chest radiograph May 22, 2020 FINDINGS/IMPRESSION: There is pulmonary edema and moderate bilateral pleural effusions. Effusion on the right has slightly worsened and the effusion on the left is completely new when compared to May 22, 2020. No pneumothorax. Cardiomegaly. Calcified aorta.
[2020-05-24 12:00] VITALS: BP 139/79
--- NOTE | 2020-05-24 12:07 | Infectious Diseases Prog Note ---
Assessment/Plan Assessment/Plan IMPRESSION: Leukocytosis, resolved systemic inflammatory response syndrome or sepsis, Bilateral pleural effusion, s/p thoracentesis CML, Accelerated hypertension, Elevation of troponin. RECOMMENDATION: Continue with ceftriaxone X 1 day We will follow up the cultures. Subjective ROS Limited/Unobtainable: No Constitutional: Reports: no symptoms, other - feels better Respiratory: Reports: no symptoms Cardiovascular: Reports: no symptoms Gastrointestinal/Abdominal: Reports: no symptoms Allergies: Coded Allergies: No Known Allergies (Unverified , 05/19/20) Objective Last 24 Hour Vital Signs Date Time Temp Pulse Resp B/P (MAP) Pulse Ox O2 Delivery O2 Flow Rate FiO2 05/24/20 11:40 93 100 05/24/20 08:57 117 05/24/20 08:00 97.1 107 21 130/72 (91) 96 05/24/20 08:00 15.0 05/24/20 08:00 Non-Rebreather 15.0 05/24/20 07:24 94 100 05/24/20 04:00 Non-Rebreather 15.0 05/24/20 04:00 15.0 05/24/20 04:00 104 05/24/20 04:00 97.8 98 20 125/72 (89) 97 05/24/20 02:42 96 100 05/24/20 00:00 Non-Rebreather 15.0 05/24/20 00:00 97.7 95 20 124/68 (86) 97 05/23/20 23:35 92 05/23/20 22:35 97 100 05/23/20 20:00 Non-Rebreather 15.0 05/23/20 20:00 15.0 05/23/20 20:00 97 05/23/20 20:00 98.4 95 21 116/67 (83) 96 05/23/20 18:43 96 100 05/23/20 16:36 15.0 05/23/20 16:35 103 05/23/20 16:32 Non-Rebreather 15.0 05/23/20 16:00 97.7 103 20 137/74 (95) 98 05/23/20 15:50 95 100 05/23/20 12:50 90 05/23/20 12:49 97.7 95 21 125/70 (88) 93 05/23/20 12:45 Venturi Mask 55.0 05/23/20 12:25 55.0 Height (Feet): 5 Height (Inches): 0.00 Weight (Pounds): 100 General Appearance: no acute distress HEENT: mucous membranes moist Respiratory/Chest: lungs clear, other - oxygen by rebreathing mask Cardiovascular: tachycardia Abdomen: soft, non tender Extremities: no edema Neurologic/Psychiatric: alert, oriented x 3, responsive Laboratory Tests Test 05/24/20 03:41 05/24/20 09:51 Sodium Level 135 MMOL/L (136-145) L Potassium Level 5.4 MMOL/L (3.5-5.1) H Chloride Level 102 MMOL/L (98-107) Carbon Dioxide Level 27 MMOL/L (21-32) Anion Gap 7 mmol/L (5-15) Blood Urea Nitrogen 35 mg/dL (7-18) H Creatinine 1.0 MG/DL (0.55-1.30) Estimat Glomerular Filtration Rate 56.4 mL/min (>60) Glucose Level 123 MG/DL (74-106) H Hemoglobin A1c 5.9 % (4.3-6.0) Uric Acid 6.5 MG/DL (2.6-7.2) Calcium Level 8.7 MG/DL (8.5-10.1) Phosphorus Level 3.3 MG/DL (2.5-4.9) Magnesium Level 2.5 MG/DL (1.8-2.4) H Total Bilirubin 0.3 MG/DL (0.2-1.0) Gamma Glutamyl Transpeptidase 5 U/L (5-85) Aspartate Amino Transf (AST/SGOT) 28 U/L (15-37) Alanine Aminotransferase (ALT/SGPT) 15 U/L (12-78) Alkaline Phosphatase 52 U/L (46-116) Total Protein 6.3 G/DL (6.4-8.2) L Albumin 2.5 G/DL (3.4-5.0) L Globulin 3.8 g/dL Albumin/Globulin Ratio 0.7 (1.0-2.7) L Triglycerides Level 172 MG/DL (30-150) H Cholesterol Level 173 MG/DL (< 200) LDL Cholesterol 87 mg/dL (<100) HDL Cholesterol 54 MG/DL (40-60) Cholesterol/HDL Ratio 3.2 (3.3-4.4) L Cortisol AM Sample Pending Arterial Blood pH 7.420 (7.350-7.450) Arterial Blood Partial Pressure CO2 33.5 mmHg (35.0-45.0) L Arterial Blood Partial Pressure O2 68.0 mmHg (75.0-100.0) L Arterial Blood HCO3 21.2 mmol/L (22.0-26.0) L Arterial Blood Oxygen Saturation 93.3 % (95-100) L Arterial Blood Base Excess -2.5 (-2-2) L Sammy Test Positive Current Medications Medications (Trade) Dose Ordered Sig/Jennie Route PRN Reason Start Time Stop Time Status Last Admin Dose Admin Acetaminophen (Tylenol) 500 mg Q6H PRN ORAL Mild Pain (Pain Scale 1-3) 05/19/20 16:45 06/18/20 16:44 Ceftriaxone Sodium 1 gm/ Dextrose 55 ml @ 110 mls/hr Q24H IVPB 05/20/20 15:00 05/27/20 14:59 05/23/20 14:43 Docusate Sodium (Colace) 100 mg TWICE A DAY ORAL 05/22/20 18:00 06/21/20 17:59 05/24/20 08:52 Heparin Sodium (Porcine) (Heparin 5000 units/ml) 5,000 units EVERY 12 HOURS INJ 05/24/20 21:00 07/08/20 20:59 Pantoprazole (Protonix) 40 mg Q12HR ORAL 05/22/20 21:00 06/21/20 20:59 05/24/20 08:52 Timothy Pennington MD May 24, 2020 12:07
--- NOTE | 2020-05-24 13:14 | Cardiac Electrophysiology PN ---
Assessment/Plan Assessment/Plan 1. Accelerated hypertension. Now off Lisinopril and Lasix for acute renal failure BP stable off any BP meds. Add prn Clonidine 2. Troponin leak. Level low and no CP and renal failure 3. Bilateral pleural effusions. S/P Right side thoracentesis. FU by Dr. Olson. 4. Hyponatremia. 5. CML x 5 years, sees oncologist in [facility] --> at this time STOP desatanib (also is the likely cause of pleural effusions) Per Dr Dolan 6. Acute renal failure with sudden JUMP in creatinine to 2.7. FU Dr Carpio. Better after iv fluid, Albumin and off lasix and Lisinopril. Cr now 1.[address] Carpio Subjective Subjective S/P Right sided thoracentesis ( 1.2 liters of serosanguineous fluid ) on 05/21/20. On Venturi Mask. Alert in NAD. Got Kayexalate for Hyperkalemia Objective Last 24 Hour Vital Signs Date Time Temp Pulse Resp B/P (MAP) Pulse Ox O2 Delivery O2 Flow Rate FiO2 05/24/20 12:00 101 05/24/20 12:00 15.0 05/24/20 12:00 Non-Rebreather 15.0 05/24/20 12:00 98.1 100 20 139/79 (99) 96 05/24/20 11:40 93 100 05/24/20 08:57 117 05/24/20 08:00 97.1 107 21 130/72 (91) 96 05/24/20 08:00 15.0 05/24/20 08:00 Non-Rebreather 15.0 05/24/20 07:24 94 100 05/24/20 04:00 Non-Rebreather 15.0 05/24/20 04:00 15.0 05/24/20 04:00 104 05/24/20 04:00 97.8 98 20 125/72 (89) 97 05/24/20 02:42 96 100 05/24/20 00:00 Non-Rebreather 15.0 05/24/20 00:00 97.7 95 20 124/68 (86) 97 05/23/20 23:35 92 05/23/20 22:35 97 100 05/23/20 20:00 Non-Rebreather 15.0 05/23/20 20:00 15.0 05/23/20 20:00 97 05/23/20 20:00 98.4 95 21 116/67 (83) 96 05/23/20 18:43 96 100 05/23/20 16:36 15.0 05/23/20 16:35 103 05/23/20 16:32 Non-Rebreather 15.0 05/23/20 16:00 97.7 103 20 137/74 (95) 98 05/23/20 15:50 95 100 Intake and Output 05/23/20 05/24/20 19:00 07:00 Intake Total 550 ml 400 ml Output Total 900 ml 400 ml Balance -350 ml 0 ml Intake Oral 500 ml 400 ml IV Total 50 ml Output Urine Total 900 ml 400 ml # Bowel Movements 2 Laboratory Tests Test 05/24/20 03:41 05/24/20 09:51 Sodium Level 135 MMOL/L (136-145) L Potassium Level 5.4 MMOL/L (3.5-5.1) H Chloride Level 102 MMOL/L (98-107) Carbon Dioxide Level 27 MMOL/L (21-32) Anion Gap 7 mmol/L (5-15) Blood Urea Nitrogen 35 mg/dL (7-18) H Creatinine 1.0 MG/DL (0.55-1.30) Estimat Glomerular Filtration Rate 56.4 mL/min (>60) Glucose Level 123 MG/DL (74-106) H Hemoglobin A1c 5.9 % (4.3-6.0) Uric Acid 6.5 MG/DL (2.6-7.2) Calcium Level 8.7 MG/DL (8.5-10.1) Phosphorus Level 3.3 MG/DL (2.5-4.9) Magnesium Level 2.5 MG/DL (1.8-2.4) H Total Bilirubin 0.3 MG/DL (0.2-1.0) Gamma Glutamyl Transpeptidase 5 U/L (5-85) Aspartate Amino Transf (AST/SGOT) 28 U/L (15-37) Alanine Aminotransferase (ALT/SGPT) 15 U/L (12-78) Alkaline Phosphatase 52 U/L (46-116) Total Protein 6.3 G/DL (6.4-8.2) L Albumin 2.5 G/DL (3.4-5.0) L Globulin 3.8 g/dL Albumin/Globulin Ratio 0.7 (1.0-2.7) L Triglycerides Level 172 MG/DL (30-150) H Cholesterol Level 173 MG/DL (< 200) LDL Cholesterol 87 mg/dL (<100) HDL Cholesterol 54 MG/DL (40-60) Cholesterol/HDL Ratio 3.2 (3.3-4.4) L Cortisol AM Sample Pending Arterial Blood pH 7.420 (7.350-7.450) Arterial Blood Partial Pressure CO2 33.5 mmHg (35.0-45.0) L Arterial Blood Partial Pressure O2 68.0 mmHg (75.0-100.0) L Arterial Blood HCO3 21.2 mmol/L (22.0-26.0) L Arterial Blood Oxygen Saturation 93.3 % (95-100) L Arterial Blood Base Excess -2.5 (-2-2) L Sammy Test Positive Objective HEAD AND NECK: No JVD. On Venturi Mask LUNGS: Decreased breath sounds. CARDIOVASCULAR: Regular S1 and S2 and tachycardic. ABDOMEN: Soft. EXTREMITIES: No pitting edema. Cristian England MD May 24, 2020 13:14
--- NOTE | 2020-05-24 13:51 | Hematology/Onc Progress Note ---
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, sees oncologist in [facility] --> at this time STOP desatanib (also is the likely cause of pleural effusions) --> no is s/p thora per pulm/cards --> wbc trend 18->7 --> hgb 11.5 --> ABX ceftriaxone --> bipap, thora prn --> needs molecular and cytogenectic response for CML, f/u oncologist outpatient # Bilateral pleural effusion --> as per pulm, is on bipap --> thora as needed # HTN --> hydralazine and lisinopril --> sbp goal <140 # Dehydration --> goal of euvolemia # Elevated ddimer --> duplex lower ext r/o dvt==>neg # Dvt ppx scds Appreciate consultation and dw RN Subjective Constitutional: Denies: no symptoms, chills, fever, malaise, weakness, other HEENT: Denies: no symptoms, eye pain, blurred vision, tearing, double vision, ear pain, ear discharge, nose pain, nose congestion, throat pain, throat swelling, mouth pain, mouth swelling, other Cardiovascular: Denies: no symptoms, chest pain, edema, irregular heart rate, lightheadedness, palpitations, syncope, other Respiratory: Denies: no symptoms, cough, shortness of breath, SOB with excertion, SOB at rest, sputum, wheezing, other Gastrointestinal/Abdominal: Denies: no symptoms, abdomen distended, abdominal pain, black stools, tarry stools, blood in stool, constipated, diarrhea, difficu lty swallowing, nausea, poor appetite, poor fluid intake, rectal bleeding, vomiting, other Genitourinary: Denies: no symptoms, burning, discharge, frequency, flank pain, hematuria, incontinence, pain, urgency, other Neurologic/Psychiatric: Denies: no symptoms, anxiety, depressed, emotional problems, headache, numbness, paresthesia, pre-existing deficit, seizure, tingling, tremors, weakness, other Endocrine: Denies: no symptoms, excessive sweating, flushing, intolerance to cold, intolerance to heat, increased hunger, increased thirst, increased urine, unexplained weight gain, unexplained weight loss, other Allergies: Coded Allergies: No Known Allergies (Unverified , 05/19/20) Subjective 05/21 labs are noted, no bleeding, with pleural effusions due to desatanbib, s/p thora 05/22 labs are noted, no bleeding, on bipap, i dw her today to stop her med at once 05/24 wbc is improved, continue on ctx for one more day per id, bipap Objective Objective Current Medications Medications (Trade) Dose Ordered Sig/Jennie Route PRN Reason Start Time Stop Time Status Last Admin Dose Admin Acetaminophen (Tylenol) 500 mg Q6H PRN ORAL Mild Pain (Pain Scale 1-3) 05/19/20 16:45 06/18/20 16:44 Ceftriaxone Sodium 1 gm/ Dextrose 55 ml @ 110 mls/hr Q24H IVPB 05/20/20 15:00 05/27/20 14:59 05/23/20 14:43 Clonidine HCl (Catapres Tab) 0.1 mg Q4H PRN ORAL SBP > 170 05/24/20 13:15 08/22/20 13:14 Docusate Sodium (Colace) 100 mg TWICE A DAY ORAL 05/22/20 18:00 06/21/20 17:59 05/24/20 08:52 Heparin Sodium (Porcine) (Heparin 5000 units/ml) 5,000 units EVERY 12 HOURS INJ 05/24/20 21:00 07/08/20 20:59 Pantoprazole (Protonix) 40 mg Q12HR ORAL 05/22/20 21:00 06/21/20 20:59 05/24/20 08:52 Last 24 Hour Vital Signs Date Time Temp Pulse Resp B/P (MAP) Pulse Ox O2 Delivery O2 Flow Rate FiO2 05/24/20 12:00 101 05/24/20 12:00 15.0 05/24/20 12:00 Non-Rebreather 15.0 05/24/20 12:00 98.1 100 20 139/79 (99) 96 05/24/20 11:40 93 100 05/24/20 08:57 117 05/24/20 08:00 97.1 107 21 130/72 (91) 96 05/24/20 08:00 15.0 05/24/20 08:00 Non-Rebreather 15.0 05/24/20 07:24 94 100 05/24/20 04:00 Non-Rebreather 15.0 05/24/20 04:00 15.0 05/24/20 04:00 104 05/24/20 04:00 97.8 98 20 125/72 (89) 97 05/24/20 02:42 96 100 05/24/20 00:00 Non-Rebreather 15.0 05/24/20 00:00 97.7 95 20 124/68 (86) 97 05/23/20 23:35 92 05/23/20 22:35 97 100 05/23/20 20:00 Non-Rebreather 15.0 05/23/20 20:00 15.0 05/23/20 20:00 97 05/23/20 20:00 98.4 95 21 116/67 (83) 96 05/23/20 18:43 96 100 05/23/20 16:36 15.0 05/23/20 16:35 103 05/23/20 16:32 Non-Rebreather 15.0 05/23/20 16:00 97.7 103 20 137/74 (95) 98 05/23/20 15:50 95 100 05/23/20 12:50 90 05/23/20 12:49 97.7 95 21 125/70 (88) 93 05/23/20 12:45 Venturi Mask 55.0 05/23/20 12:25 55.0 05/23/20 11:16 94 55 05/23/20 08:21 97.0 94 22 104/56 (72) 94 05/23/20 08:00 95 05/23/20 08:00 15.0 05/23/20 08:00 Venturi Mask 55.0 05/23/20 07:05 92 55 05/23/20 04:00 98 05/23/20 04:00 15.0 05/23/20 04:00 Non-Rebreather 15.0 05/23/20 04:00 97.7 85 20 107/59 (75) 90 05/23/20 00:12 89 97 05/23/20 00:00 98.3 94 20 119/57 (77) 90 05/23/20 00:00 15.0 05/23/20 00:00 Non-Rebreather 15.0 9/25/20 23:41 97 05/22/20 20:00 14.0 55 05/22/20 20:00 Venturi Mask 14.0 05/22/20 20:00 98.0 89 20 113/59 (77) 91 05/22/20 19:32 95 05/22/20 19:30 28 05/22/20 17:00 97.7 98 20 104/82 (89) 95 05/22/20 16:00 96 20 95 05/22/20 16:00 Nasal Cannula 2.0 05/22/20 16:00 93 05/22/20 15:39 28 05/22/20 15:30 30 05/22/20 15:30 86 20 95/45 (62) 97 05/22/20 15:28 35 05/22/20 15:18 50 05/22/20 15:00 50 05/22/20 14:30 88 20 72/38 (49) 100 Intake and Output 05/23/20 05/24/20 19:00 07:00 Intake Total 550 ml 400 ml Output Total 900 ml 400 ml Balance -350 ml 0 ml Intake Oral 500 ml 400 ml IV Total 50 ml Output Urine Total 900 ml 400 ml # Bowel Movements 2 Labs Test 05/22/20 03:25 05/22/20 11:15 05/22/20 14:05 05/23/20 03:15 White Blood Count 10.8 K/UL (4.8-10.8) 10.6 K/UL (4.8-10.8) 7.4 K/UL (4.8-10.8) Red Blood Count 4.46 M/UL (4.20-5.40) 4.68 M/UL (4.20-5.40) 3.96 M/UL (4.20-5.40) Hemoglobin 12.9 G/DL (12.0-16.0) 13.5 G/DL (12.0-16.0) 11.5 G/DL (12.0-16.0) Hematocrit 40.1 % (37.0-47.0) 42.0 % (37.0-47.0) 35.2 % (37.0-47.0) Mean Corpuscular Volume 90 FL (80-99) 90 FL (80-99) 89 FL (80-99) Mean Corpuscular Hemoglobin 28.9 PG (27.0-31.0) 29.0 PG (27.0-31.0) 29.0 PG (27.0-31.0) Mean Corpuscular Hemoglobin Concent 32.2 G/DL (32.0-36.0) 32.2 G/DL (32.0-36.0) 32.6 G/DL (32.0-36.0) Red Cell Distribution Width 15.2 % (11.6-14.8) 15.3 % (11.6-14.8) 14.9 % (11.6-14.8) Platelet Count 375 K/UL (150-450) 380 K/UL (150-450) 284 K/UL (150-450) Mean Platelet Volume 4.5 FL (6.5-10.1) 4.3 FL (6.5-10.1) 4.6 FL (6.5-10.1) Neutrophils (%) (Auto) 76.7 % (45.0-75.0) 84.9 % (45.0-75.0) 81.1 % (45.0-75.0) Lymphocytes (%) (Auto) 16.7 % (20.0-45.0) 8.9 % (20.0-45.0) 9.5 % (20.0-45.0) Monocytes (%) (Auto) 6.0 % (1.0-10.0) 5.5 % (1.0-10.0) 7.4 % (1.0-10.0) Eosinophils (%) (Auto) 0.1 % (0.0-3.0) 0.0 % (0.0-3.0) 1.5 % (0.0-3.0) Basophils (%) (Auto) 0.5 % (0.0-2.0) 0.7 % (0.0-2.0) 0.5 % (0.0-2.0) Sodium Level 141 MMOL/L (136-145) 138 MMOL/L (136-145) Potassium Level 5.1 MMOL/L (3.5-5.1) 4.5 MMOL/L (3.5-5.1) Chloride Level 105 MMOL/L (98-107) 106 MMOL/L (98-107) Carbon Dioxide Level 17 MMOL/L (21-32) 22 MMOL/L (21-32) Anion Gap 19 mmol/L (5-15) 10 mmol/L (5-15) Blood Urea Nitrogen 71 mg/dL (7-18) 59 mg/dL (7-18) Creatinine 2.7 MG/DL (0.55-1.30) 1.6 MG/DL (0.55-1.30) Estimat Glomerular Filtration Rate 17.9 mL/min (>60) 32.8 mL/min (>60) Glucose Level 166 MG/DL (74-106) 115 MG/DL (74-106) Osmolality 332 mOsm/kg (297-317) Uric Acid 13.0 MG/DL (2.6-7.2) 10.9 MG/DL (2.6-7.2) Calcium Level 9.1 MG/DL (8.5-10.1) 8.2 MG/DL (8.5-10.1) Phosphorus Level 6.7 MG/DL (2.5-4.9) 3.0 MG/DL (2.5-4.9) Magnesium Level 2.8 MG/DL (1.8-2.4) 2.5 MG/DL (1.8-2.4) Total Bilirubin 0.4 MG/DL (0.2-1.0) 0.4 MG/DL (0.2-1.0) Aspartate Amino Transf (AST/SGOT) 16 U/L (15-37) 16 U/L (15-37) Alanine Aminotransferase (ALT/SGPT) 16 U/L (12-78) 13 U/L (12-78) Alkaline Phosphatase 66 U/L (46-116) 49 U/L (46-116) C-Reactive Protein, Quantitative 16.7 mg/dL (0.00-0.90) 12.3 mg/dL (0.00-0.90) Pro-B-Type Natriuretic Peptide 906 pg/mL (0-125) 887 pg/mL (0-125) Total Protein 7.2 G/DL (6.4-8.2) 6.1 G/DL (6.4-8.2) Albumin 3.0 G/DL (3.4-5.0) 2.9 G/DL (3.4-5.0) Globulin 4.2 g/dL 3.2 g/dL Albumin/Globulin Ratio 0.7 (1.0-2.7) 0.9 (1.0-2.7) Thyroid Stimulating Hormone (TSH) 1.404 uiU/mL (0.358-3.740) Body Fluid Glucose 146 mg/dL (.) Body Fluid Total Protein 4.7 g/dL (.) Body Fluid Lactate Dehydrogenase 143 IU/L (.) Test 05/24/20 03:41 05/24/20 09:51 Sodium Level 135 MMOL/L (136-145) Potassium Level 5.4 MMOL/L (3.5-5.1) Chloride Level 102 MMOL/L (98-107) Carbon Dioxide Level 27 MMOL/L (21-32) Anion Gap 7 mmol/L (5-15) Blood Urea Nitrogen 35 mg/dL (7-18) Creatinine 1.0 MG/DL (0.55-1.30) Estimat Glomerular Filtration Rate 56.4 mL/min (>60) Glucose Level 123 MG/DL (74-106) Hemoglobin A1c 5.9 % (4.3-6.0) Uric Acid 6.5 MG/DL (2.6-7.2) Calcium Level 8.7 MG/DL (8.5-10.1) Phosphorus Level 3.3 MG/DL (2.5-4.9) Magnesium Level 2.5 MG/DL (1.8-2.4) Total Bilirubin 0.3 MG/DL (0.2-1.0) Gamma Glutamyl Transpeptidase 5 U/L (5-85) Aspartate Amino Transf (AST/SGOT) 28 U/L (15-37) Alanine Aminotransferase (ALT/SGPT) 15 U/L (12-78) Alkaline Phosphatase 52 U/L (46-116) Total Protein 6.3 G/DL (6.4-8.2) Albumin 2.5 G/DL (3.4-5.0) Globulin 3.8 g/dL Albumin/Globulin Ratio 0.7 (1.0-2.7) Triglycerides Level 172 MG/DL (30-150) Cholesterol Level 173 MG/DL (< 200) LDL Cholesterol 87 mg/dL (<100) HDL Cholesterol 54 MG/DL (40-60) Cholesterol/HDL Ratio 3.2 (3.3-4.4) Arterial Blood pH 7.420 (7.350-7.450) Arterial Blood Partial Pressure CO2 33.5 mmHg (35.0-45.0) Arterial Blood Partial Pressure O2 68.0 mmHg (75.0-100.0) Arterial Blood HCO3 21.2 mmol/L (22.0-26.0) Arterial Blood Oxygen Saturation 93.3 % (95-100) Arterial Blood Base Excess -2.5 (-2-2) Sammy Test Positive Height (Feet): 5 Height (Inches): 0.00 Weight (Pounds): 100 Dionicio Higgins MD May 24, 2020 13:51
--- NOTE | 2020-05-24 13:55 | Diagnostic Imaging Report ---
EXAM: US Duplex Bilateral Lower Extremities Veins CLINICAL HISTORY: DVT TECHNIQUE: Real-time duplex ultrasound scan of the bilateral lower extremity veins integrating B-mode two-dimensional vascular structure, Doppler spectral analysis, color flow Doppler imaging and compression. COMPARISON: 05/20/20. FINDINGS: Right deep veins: Unremarkable. No DVT in the right common femoral, femoral, proximal deep femoral or popliteal veins. The veins demonstrate normal color flow, are normally compressible, with normal phasic flow and/or augmentation response. Right superficial veins: Unremarkable. No thrombus in the visualized right great saphenous vein. Left deep veins: Unremarkable. No DVT in the left common femoral, femoral, proximal deep femoral or popliteal veins. The veins demonstrate normal color flow, are normally compressible, with normal phasic flow and/or augmentation response. Left superficial veins: Unremarkable. No thrombus in the visualized left great saphenous vein. IMPRESSION: No DVT.
[2020-05-24 14:00] LABS: BASOPHILS % (AUTO) 2.2 % (0.0-2.0); EOSINOPHILS % (AUTO) 4.7 % (0.0-3.0); HEMATOCRIT 39.2 % (37.0-47.0); HEMOGLOBIN 12.7 G/DL (12.0-16.0); LYMPHOCYTES % (AUTO) 11.3 % (20.0-45.0); MEAN CORPUSCULAR VOLUME 89 FL (80-99); MONOCYTES % (AUTO) 8.4 % (1.0-10.0); NEUTROPHILS % (AUTO) 73.3 % (45.0-75.0); PLATELET COUNT 262 K/UL (150-450); RED CELL DISTRIBUTION WIDTH 14.6 % (11.6-14.8)
[2020-05-24] MEDS: cefTRIAXone 1 GM in D5W 55 ML IVPB SCH (15:15)
[2020-05-24 16:00] VITALS: BP 127/77
--- NOTE | 2020-05-24 17:37 | General Progress Note ---
Subjective Allergies: Coded Allergies: No Known Allergies (Unverified , 05/19/20) Subjective above noted on po diet tolerating well Objective Last 24 Hour Vital Signs Date Time Temp Pulse Resp B/P (MAP) Pulse Ox O2 Delivery O2 Flow Rate FiO2 05/24/20 16:00 Non-Rebreather 15.0 05/24/20 16:00 15.0 05/24/20 16:00 97.1 76 21 127/77 (94) 99 05/24/20 15:32 88 25 95 Non-Rebreather 15.0 100 05/24/20 15:29 100 05/24/20 14:57 95 100 05/24/20 12:00 101 05/24/20 12:00 15.0 05/24/20 12:00 Non-Rebreather 15.0 05/24/20 12:00 98.1 100 20 139/79 (99) 96 05/24/20 11:40 93 100 05/24/20 08:57 117 05/24/20 08:00 97.1 107 21 130/72 (91) 96 05/24/20 08:00 15.0 05/24/20 08:00 Non-Rebreather 15.0 05/24/20 07:24 94 100 05/24/20 04:00 Non-Rebreather 15.0 05/24/20 04:00 15.0 05/24/20 04:00 104 05/24/20 04:00 97.8 98 20 125/72 (89) 97 05/24/20 02:42 96 100 05/24/20 00:00 Non-Rebreather 15.0 05/24/20 00:00 97.7 95 20 124/68 (86) 97 05/23/20 23:35 92 05/23/20 22:35 97 100 05/23/20 20:00 Non-Rebreather 15.0 05/23/20 20:00 15.0 05/23/20 20:00 97 05/23/20 20:00 98.4 95 21 116/67 (83) 96 05/23/20 18:43 96 100 Intake and Output 05/23/20 05/24/20 19:00 07:00 Intake Total 550 ml 400 ml Output Total 900 ml 400 ml Balance -350 ml 0 ml Intake Oral 500 ml 400 ml IV Total 50 ml Output Urine Total 900 ml 400 ml # Bowel Movements 2 Laboratory Tests 05/24/20 03:41: Sodium Level 135L, Potassium Level 5.4H, Chloride Level 102, Carbon Dioxide Level 27, Anion Gap 7, Blood Urea Nitrogen 35H, Creatinine 1.0, Estimat Glomerular Filtration Rate 56.4, Glucose Level 123H, Hemoglobin A1c 5.9, Uric Acid 6.5, Calcium Level 8.7, Phosphorus Level 3.3, Magnesium Level 2.5H, Total Bilirubin 0.3, Gamma Glutamyl Transpeptidase 5, Aspartate Amino Transf (AST/SGOT) 28, Alanine Aminotransferase (ALT/SGPT) 15, Alkaline Phosphatase 52, Total Protein 6.3L, Albumin 2.5L, Globulin 3.8, Albumin/Globulin Ratio 0.7L, Triglycerides Level 172H, Cholesterol Level 173, LDL Cholesterol 87, HDL Cholesterol 54, Cholesterol/HDL Ratio 3.2L, Cortisol AM Sample [Pending] 05/24/20 06:41: White Blood Count 6.0, Red Blood Count 4.40, Hemoglobin 12.7, Hematocrit 39.2, Mean Corpuscular Volume 89, Mean Corpuscular Hemoglobin 28.8, Mean Corpuscular Hemoglobin Concent 32.3, Red Cell Distribution Width 14.6, Platelet Count 262, Mean Platelet Volume 4.5L, Neutrophils (%) (Auto) 73.3, Lymphocytes (%) (Auto) 11.3L, Monocytes (%) (Auto) 8.4, Eosinophils (%) (Auto) 4.7H, Basophils (%) (Auto) 2.2H 05/24/20 09:51: Arterial Blood pH 7.420, Arterial Blood Partial Pressure CO2 33.5L, Arterial Blood Partial Pressure O2 68.0L, Arterial Blood HCO3 21.2L, Arterial Blood Oxygen Saturation 93.3L, Arterial Blood Base Excess -2.5L, Sammy Test Positive Height (Feet): 5 Height (Inches): 0.00 Weight (Pounds): 100 Objective NCAT supple Coarse BS RR abd soft no edema Assessment/Plan Status: progressing Assessment/Plan: Assessment - Respiratory failure - improving - pleural effusions, s/p thoracentesis - Renal failure - Malnutrition - Elevated troponin - HTN - CML Recommendations - Pulmonary management - careful po diet - follow labs and exam Antonio Ratliff MD May 24, 2020 17:37
[2020-05-24 20:00] VITALS: BP 137/68
--- NOTE | 2020-05-24 20:40 | General Progress Note ---
Subjective ROS Limited/Unobtainable: Yes Allergies: Coded Allergies: No Known Allergies (Unverified , 05/19/20) Objective Last 24 Hour Vital Signs Date Time Temp Pulse Resp B/P (MAP) Pulse Ox O2 Delivery O2 Flow Rate FiO2 05/24/20 19:30 95 100 05/24/20 16:00 Non-Rebreather 15.0 05/24/20 16:00 15.0 05/24/20 16:00 97.1 76 21 127/77 (94) 99 05/24/20 15:32 88 25 95 Non-Rebreather 15.0 100 05/24/20 15:29 100 05/24/20 14:57 95 100 05/24/20 12:00 101 05/24/20 12:00 15.0 05/24/20 12:00 Non-Rebreather 15.0 05/24/20 12:00 98.1 100 20 139/79 (99) 96 05/24/20 11:40 93 100 05/24/20 08:57 117 05/24/20 08:00 97.1 107 21 130/72 (91) 96 05/24/20 08:00 15.0 05/24/20 08:00 Non-Rebreather 15.0 05/24/20 07:24 94 100 05/24/20 04:00 Non-Rebreather 15.0 05/24/20 04:00 15.0 05/24/20 04:00 104 05/24/20 04:00 97.8 98 20 125/72 (89) 97 05/24/20 02:42 96 100 05/24/20 00:00 Non-Rebreather 15.0 05/24/20 00:00 97.7 95 20 124/68 (86) 97 05/23/20 23:35 92 05/23/20 22:35 97 100 Intake and Output 05/23/20 05/24/20 18:59 06:59 Intake Total 550 ml 400 ml Output Total 900 ml 400 ml Balance -350 ml 0 ml Intake Oral 500 ml 400 ml IV Total 50 ml Output Urine Total 900 ml 400 ml # Bowel Movements 2 Laboratory Tests 05/24/20 03:41: Sodium Level 135L, Potassium Level 5.4H, Chloride Level 102, Carbon Dioxide Level 27, Anion Gap 7, Blood Urea Nitrogen 35H, Creatinine 1.0, Estimat Glomerular Filtration Rate 56.4, Glucose Level 123H, Hemoglobin A1c 5.9, Uric Acid 6.5, Calcium Level 8.7, Phosphorus Level 3.3, Magnesium Level 2.5H, Total Bilirubin 0.3, Gamma Glutamyl Transpeptidase 5, Aspartate Amino Transf (AST/SGOT) 28, Alanine Aminotransferase (ALT/SGPT) 15, Alkaline Phosphatase 52, Total Protein 6.3L, Albumin 2.5L, Globulin 3.8, Albumin/Globulin Ratio 0.7L, Triglycerides Level 172H, Cholesterol Level 173, LDL Cholesterol 87, HDL Cholesterol 54, Cholesterol/HDL Ratio 3.2L, Cortisol AM Sample [Pending] 05/24/20 06:41: White Blood Count 6.0, Red Blood Count 4.40, Hemoglobin 12.7, Hematocrit 39.2, Mean Corpuscular Volume 89, Mean Corpuscular Hemoglobin 28.8, Mean Corpuscular Hemoglobin Concent 32.3, Red Cell Distribution Width 14.6, Platelet Count 262, Mean Platelet Volume 4.5L, Neutrophils (%) (Auto) 73.3, Lymphocytes (%) (Auto) 11.3L, Monocytes (%) (Auto) 8.4, Eosinophils (%) (Auto) 4.7H, Basophils (%) (Auto) 2.2H 05/24/20 09:51: Arterial Blood pH 7.420, Arterial Blood Partial Pressure CO2 33.5L, Arterial Blood Partial Pressure O2 68.0L, Arterial Blood HCO3 21.2L, Arterial Blood Oxygen Saturation 93.3L, Arterial Blood Base Excess -2.5L, Sammy Test Positive Height (Feet): 5 Height (Inches): 0.00 Weight (Pounds): 100 Assessment/Plan Problem List: (1) Leukemia ICD Codes: C95.90 - Leukemia, unspecified not having achieved remission SNOMED: 55136337 (2) Bilateral pleural effusion ICD Codes: J90 - Pleural effusion, not elsewhere classified SNOMED: 249023191 Status: progressing Assessment/Plan: renal failure is stable afebrile on oxygen prn s/p thoracocenesis leukemia bilat pleural effusion Tiara Jara MD May 24, 2020 20:40
[2020-05-24] MEDS ORDERED: NS 275ml ONE (21:05)
[2020-05-24] MEDS ORDERED: 1/2 NS 1000ml IV ONE (21:05)
[2020-05-24] MEDS ORDERED: Tubing IV Secondary IV ONE (21:05)
[2020-05-24] MEDS ORDERED: NS 500ML ONE (21:05)
[2020-05-24] MEDS: Heparin 5000 units/ml inj INJ SCH (21:14)
[2020-05-25] VITALS: BP 137/72
[2020-05-25 04:00] VITALS: BP 120/64
[2020-05-25 05:47] LABS: ALBUMIN 2.4 G/DL (3.4-5.0); ALBUMIN/GLOBULIN RATIO 0.5 (1.0-2.7); BILIRUBIN,TOTAL 0.4 MG/DL (0.2-1.0); CALCIUM 8.2 MG/DL (8.5-10.1); PHOSPHORUS 2.5 MG/DL (2.5-4.9); POTASSIUM 3.7 MMOL/L (3.5-5.1)
[2020-05-25 08:00] VITALS: BP 153/81
[2020-05-25] MEDS: Docusate 100mg cap ORAL SCH ×2 (08:55→18:03)
[2020-05-25] MEDS: Heparin 5000 units/ml inj INJ SCH ×2 (09:01→21:31)
--- NOTE | 2020-05-25 10:06 | Cardiac Electrophysiology PN ---
Assessment/Plan Assessment/Plan 1. Accelerated hypertension. Now off Lisinopril and Lasix for acute renal failure BP stable off any BP meds. Added prn Clonidine 2. Troponin leak. Level low and no CP and likely due to renal failure 3. Bilateral pleural effusions. S/P Right side thoracentesis. FU by Dr. Olson. 4. Hyponatremia. 5. 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 Acute renal failure with sudden JUMP in creatinine to 2.7. FU Dr Carpio. Better after iv fluid, Albumin and off lasix and Lisinopril. Cr now 1.[address] Carpio Subjective Subjective S/P Right sided thoracentesis ( 1.2 liters of serosanguineous fluid ) on 05/21/20. On Venturi Mask. Alert in NAD. Got Kayexalate for Hyperkalemia. In NAD. In SR Objective Last 24 Hour Vital Signs Date Time Temp Pulse Resp B/P (MAP) Pulse Ox O2 Delivery O2 Flow Rate FiO2 05/25/20 08:00 97.5 105 20 153/81 (105) 95 05/25/20 06:39 93 100 05/25/20 04:00 102 05/25/20 04:00 Non-Rebreather 15.0 05/25/20 04:00 97.9 99 20 120/64 (82) 97 05/25/20 04:00 15.0 05/25/20 03:45 95 100 05/25/20 00:00 97.9 98 20 137/72 (93) 100 05/25/20 00:00 107 05/25/20 00:00 96 100 05/25/20 00:00 Non-Rebreather 15.0 05/24/20 20:00 98.1 71 19 137/68 (91) 95 05/24/20 20:00 15.0 05/24/20 20:00 Non-Rebreather 15.0 05/24/20 19:35 109 05/24/20 19:30 95 100 05/24/20 16:00 Non-Rebreather 15.0 05/24/20 16:00 15.0 05/24/20 16:00 97.1 76 21 127/77 (94) 99 05/24/20 15:32 88 25 95 Non-Rebreather 15.0 100 05/24/20 15:29 100 05/24/20 14:57 95 100 05/24/20 12:00 101 05/24/20 12:00 15.0 05/24/20 12:00 Non-Rebreather 15.0 05/24/20 12:00 98.1 100 20 139/79 (99) 96 05/24/20 11:40 93 100 Intake and Output 05/24/20 05/25/20 19:00 07:00 Intake Total 800 ml 350 ml Output Total 1400 ml 300 ml Balance -600 ml 50 ml Intake Oral 800 ml 350 ml Output Urine Total 1400 ml 300 ml # Bowel Movements 2 Laboratory Tests Test 05/25/20 03:39 Sodium Level 134 MMOL/L (136-145) L Potassium Level 3.7 MMOL/L (3.5-5.1) Chloride Level 98 MMOL/L (98-107) Carbon Dioxide Level 27 MMOL/L (21-32) Anion Gap 9 mmol/L (5-15) Blood Urea Nitrogen 28 mg/dL (7-18) H Creatinine 1.0 MG/DL (0.55-1.30) Estimat Glomerular Filtration Rate 56.4 mL/min (>60) Glucose Level 132 MG/DL (74-106) H Uric Acid 5.6 MG/DL (2.6-7.2) Calcium Level 8.2 MG/DL (8.5-10.1) L Phosphorus Level 2.5 MG/DL (2.5-4.9) Magnesium Level 2.0 MG/DL (1.8-2.4) Total Bilirubin 0.4 MG/DL (0.2-1.0) Aspartate Amino Transf (AST/SGOT) 21 U/L (15-37) Alanine Aminotransferase (ALT/SGPT) 12 U/L (12-78) Alkaline Phosphatase 53 U/L (46-116) Total Protein 6.8 G/DL (6.4-8.2) Albumin 2.4 G/DL (3.4-5.0) L Globulin 4.4 g/dL Albumin/Globulin Ratio 0.5 (1.0-2.7) L Objective HEAD AND NECK: No JVD. On Venturi Mask LUNGS: Decreased breath sounds. CARDIOVASCULAR: Regular S1 and S2 and tachycardic. ABDOMEN: Soft. EXTREMITIES: No pitting edema. Cristian England MD May 25, 2020 10:06
--- NOTE | 2020-05-25 10:16 | Pulmonology Progress Note ---
Subjective ROS Limited/Unobtainable: Yes Constitutional: Reports: no symptoms, other - feels better HEENT: Repors: no symptoms Respiratory: Reports: dry cough Gastrointestinal/Abdominal: Reports: no symptoms Genitourinary: Reports: no symptoms Allergies: Coded Allergies: No Known Allergies (Unverified , 05/19/20) Objective Last 24 Hour Vital Signs Date Time Temp Pulse Resp B/P (MAP) Pulse Ox O2 Delivery O2 Flow Rate FiO2 05/25/20 08:00 97.5 105 20 153/81 (105) 95 05/25/20 06:39 93 100 05/25/20 04:00 102 05/25/20 04:00 Non-Rebreather 15.0 05/25/20 04:00 97.9 99 20 120/64 (82) 97 05/25/20 04:00 15.0 05/25/20 03:45 95 100 05/25/20 00:00 97.9 98 20 137/72 (93) 100 05/25/20 00:00 107 05/25/20 00:00 96 100 05/25/20 00:00 Non-Rebreather 15.0 05/24/20 20:00 98.1 71 19 137/68 (91) 95 05/24/20 20:00 15.0 05/24/20 20:00 Non-Rebreather 15.0 05/24/20 19:35 109 05/24/20 19:30 95 100 05/24/20 16:00 Non-Rebreather 15.0 05/24/20 16:00 15.0 05/24/20 16:00 97.1 76 21 127/77 (94) 99 05/24/20 15:32 88 25 95 Non-Rebreather 15.0 100 05/24/20 15:29 100 05/24/20 14:57 95 100 05/24/20 12:00 101 05/24/20 12:00 15.0 05/24/20 12:00 Non-Rebreather 15.0 05/24/20 12:00 98.1 100 20 139/79 (99) 96 05/24/20 11:40 93 100 Intake and Output 05/24/20 05/25/20 19:00 07:00 Intake Total 800 ml 350 ml Output Total 1400 ml 300 ml Balance -600 ml 50 ml Intake Oral 800 ml 350 ml Output Urine Total 1400 ml 300 ml # Bowel Movements 2 General Appearance: no acute distress Respiratory: chest wall non-tender, normal breath sounds, no respiratory distress, no accessory muscle use, decreased breath sounds Cardiovascular: normal peripheral pulses, normal rate Abdomen: normal bowel sounds Extremities: no cyanosis, no clubbing, no edema Laboratory Tests 05/25/20 03:39: Sodium Level 134L, Potassium Level 3.7, Chloride Level 98, Carbon Dioxide Level 27, Anion Gap 9, Blood Urea Nitrogen 28H, Creatinine 1.0, Estimat Glomerular Filtration Rate 56.4, Glucose Level 132H, Uric Acid 5.6, Calcium Level 8.2L, Phosphorus Level 2.5, Magnesium Level 2.0, Total Bilirubin 0.4, Aspartate Amino Transf (AST/SGOT) 21, Alanine Aminotransferase (ALT/SGPT) 12, Alkaline Phosphatase 53, Total Protein 6.8, Albumin 2.4L, Globulin 4.4, Albumin/Globulin Ratio 0.5L Current Medications Medications (Trade) Dose Ordered Sig/Jennie Route PRN Reason Start Time Stop Time Status Last Admin Dose Admin Acetaminophen (Tylenol) 500 mg Q6H PRN ORAL Mild Pain (Pain Scale 1-3) 05/19/20 16:45 06/18/20 16:44 Ceftriaxone Sodium 1 gm/ Dextrose 55 ml @ 110 mls/hr Q24H IVPB 05/20/20 15:00 05/27/20 14:59 05/24/20 15:15 Clonidine HCl (Catapres Tab) 0.1 mg Q4H PRN ORAL SBP > 170 05/24/20 13:15 08/22/20 13:14 Docusate Sodium (Colace) 100 mg TWICE A DAY ORAL 05/22/20 18:00 06/21/20 17:59 05/25/20 08:55 Heparin Sodium (Porcine) (Heparin 5000 units/ml) 5,000 units EVERY 12 HOURS INJ 05/24/20 21:00 07/08/20 20:59 05/25/20 09:01 Pantoprazole (Protonix) 40 mg Q12HR ORAL 05/22/20 21:00 06/21/20 20:59 05/25/20 08:55 Assessment/Plan Assessment/Plan Pulmonary Progress Note Subjective ROS Limited/Unobtainable: No Constitutional: Reports: anorexia; Denies: fever HEENT: Repors: no symptoms Respiratory: Reports: dry cough Gastrointestinal/Abdominal: Reports: no symptoms Genitourinary: Reports: no symptoms Allergies: Coded Allergies: No Known Allergies (Unverified , 05/19/20) Subjective care noted on NRB Objective Vital Signs noted General Appearance: on NRB Respiratory: chest wall non-tender, normal breath sounds, no respiratory distress, no accessory muscle use, decreased breath sounds Cardiovascular: normal peripheral pulses, normal rate Abdomen: normal bowel sounds Extremities: no cyanosis, no clubbing, no edema Laboratory Tests 05/24/20 03:41: Sodium Level 135L, Potassium Level 5.4H, Chloride Level 102, Carbon Dioxide Level 27, Anion Gap 7, Blood Urea Nitrogen 35H, Creatinine 1.0, Estimat Glomerular Filtration Rate 56.4, Glucose Level 123H, Hemoglobin A1c 5.9, Uric Acid 6.5, Calcium Level 8.7, Phosphorus Level 3.3, Magnesium Level 2.5H, Total Bilirubin 0.3, Gamma Glutamyl Transpeptidase 5, Aspartate Amino Transf (AST/SGOT) 28, Alanine Aminotransferase (ALT/SGPT) 15, Alkaline Phosphatase 52, Total Protein 6.3L, Albumin 2.5L, Globulin 3.8, Albumin/Globulin Ratio 0.7L, Triglycerides Level 172H, Cholesterol Level 173, LDL Cholesterol 87, HDL Cholesterol 54, Cholesterol/HDL Ratio 3.2L, Cortisol AM Sample [Pending] Current Medications Medications (Trade) Dose Ordered Sig/Jennie Route PRN Reason Start Time Stop Time Status Last Admin Dose Admin Acetaminophen (Tylenol) 500 mg Q6H PRN ORAL Mild Pain (Pain Scale 1-3) 05/19/20 16:45 06/18/20 16:44 Ceftriaxone Sodium 1 gm/ Dextrose 55 ml @ 110 mls/hr Q24H IVPB 05/20/20 15:00 05/27/20 14:59 05/23/20 14:43 Docusate Sodium (Colace) 100 mg TWICE A DAY ORAL 05/22/20 18:00 06/21/20 17:59 05/24/20 08:52 Pantoprazole (Protonix) 40 mg Q12HR ORAL 05/22/20 21:00 06/21/20 20:59 05/24/20 08:52 Assessment/Plan Assessment/Plan IMPRESSION: 1. History of CML, on dasatinib. 2. Possible pneumonia. 3. Large pleural effusion, s/p thoracentesis. 4. Hypertension. 5. Elevated D-dimer 6. Hypoxemic respiratory failure DISCUSSION: S/p R thoracentesis, no PTXon CXR monitor off BiPAP broad-spectrum antibiotics. Cardiology following may need PleuRx if fluid recurs oxygen therapy repeat CXR and ABG still full code and may need ICU impression, plan, and exam edited and reviewed in detail care discussed with Ho Munroe MD May 25, 2020 10:16
--- NOTE | 2020-05-25 11:21 | Infectious Diseases Prog Note ---
Assessment/Plan Assessment/Plan antibiotics : ceftriaxone A 1. leucocytosis resolved 2. CML 3. hypertension 4. renal failure improving 5. pleural effusion s/p thoracentesis P 1. dc ceftriaxone 2. observe off antibiotics Subjective Constitutional: Denies: fever, chills Respiratory: Reports: shortness of breath; Denies: dry cough Gastrointestinal/Abdominal: Denies: nausea, vomiting, diarrhea Musculoskeletal: Denies: pain Allergies: Coded Allergies: No Known Allergies (Unverified , 05/19/20) Objective Last 24 Hour Vital Signs Date Time Temp Pulse Resp B/P (MAP) Pulse Ox O2 Delivery O2 Flow Rate FiO2 05/25/20 11:00 95 100 05/25/20 08:00 Non-Rebreather 15.0 05/25/20 08:00 97.5 105 20 153/81 (105) 95 05/25/20 08:00 15.0 05/25/20 08:00 107 05/25/20 06:39 93 100 05/25/20 04:00 102 05/25/20 04:00 Non-Rebreather 15.0 05/25/20 04:00 97.9 99 20 120/64 (82) 97 05/25/20 04:00 15.0 05/25/20 03:45 95 100 05/25/20 00:00 97.9 98 20 137/72 (93) 100 05/25/20 00:00 107 05/25/20 00:00 96 100 05/25/20 00:00 Non-Rebreather 15.0 05/24/20 20:00 98.1 71 19 137/68 (91) 95 05/24/20 20:00 15.0 05/24/20 20:00 Non-Rebreather 15.0 05/24/20 19:35 109 05/24/20 19:30 95 100 05/24/20 16:00 Non-Rebreather 15.0 05/24/20 16:00 15.0 05/24/20 16:00 97.1 76 21 127/77 (94) 99 05/24/20 15:32 88 25 95 Non-Rebreather 15.0 100 05/24/20 15:29 100 05/24/20 14:57 95 100 05/24/20 12:00 101 05/24/20 12:00 15.0 05/24/20 12:00 Non-Rebreather 15.0 05/24/20 12:00 98.1 100 20 139/79 (99) 96 05/24/20 11:40 93 100 Height (Feet): 5 Height (Inches): 0.00 Weight (Pounds): 100 Respiratory/Chest: lungs clear Cardiovascular: normal rate, regular rhythm, no gallop/murmur Abdomen: soft, non tender Extremities: no edema Laboratory Tests Test 05/25/20 03:39 Sodium Level 134 MMOL/L (136-145) L Potassium Level 3.7 MMOL/L (3.5-5.1) Chloride Level 98 MMOL/L (98-107) Carbon Dioxide Level 27 MMOL/L (21-32) Anion Gap 9 mmol/L (5-15) Blood Urea Nitrogen 28 mg/dL (7-18) H Creatinine 1.0 MG/DL (0.55-1.30) Estimat Glomerular Filtration Rate 56.4 mL/min (>60) Glucose Level 132 MG/DL (74-106) H Uric Acid 5.6 MG/DL (2.6-7.2) Calcium Level 8.2 MG/DL (8.5-10.1) L Phosphorus Level 2.5 MG/DL (2.5-4.9) Magnesium Level 2.0 MG/DL (1.8-2.4) Total Bilirubin 0.4 MG/DL (0.2-1.0) Aspartate Amino Transf (AST/SGOT) 21 U/L (15-37) Alanine Aminotransferase (ALT/SGPT) 12 U/L (12-78) Alkaline Phosphatase 53 U/L (46-116) Total Protein 6.8 G/DL (6.4-8.2) Albumin 2.4 G/DL (3.4-5.0) L Globulin 4.4 g/dL Albumin/Globulin Ratio 0.5 (1.0-2.7) L Current Medications Medications (Trade) Dose Ordered Sig/Jennie Route PRN Reason Start Time Stop Time Status Last Admin Dose Admin Acetaminophen (Tylenol) 500 mg Q6H PRN ORAL Mild Pain (Pain Scale 1-3) 05/19/20 16:45 06/18/20 16:44 Ceftriaxone Sodium 1 gm/ Dextrose 55 ml @ 110 mls/hr Q24H IVPB 05/20/20 15:00 05/27/20 14:59 05/24/20 15:15 Clonidine HCl (Catapres Tab) 0.1 mg Q4H PRN ORAL SBP > 170 05/24/20 13:15 08/22/20 13:14 Docusate Sodium (Colace) 100 mg TWICE A DAY ORAL 05/22/20 18:00 06/21/20 17:59 05/25/20 08:55 Heparin Sodium (Porcine) (Heparin 5000 units/ml) 5,000 units EVERY 12 HOURS INJ 05/24/20 21:00 07/08/20 20:59 05/25/20 09:01 Pantoprazole (Protonix) 40 mg Q12HR ORAL 05/22/20 21:00 06/21/20 20:59 05/25/20 08:55 Yovani Ulloa MD May 25, 2020 11:21
[2020-05-25 12:00] VITALS: BP 154/86
--- NOTE | 2020-05-25 13:45 | Nephrology Progress Note ---
Assessment/Plan Problem List: (1) ASHLEY (acute kidney injury) (2) Bilateral pleural effusion (3) Leukemia Assessment Imp: Acute renal failure, with sudden jump in serum creatinine to 2.7 History of leukemia Hypertension, now hypotensive Hyponatremia on admission, improved Bilateral pleural effusion. Status post paracentesis. Elevated troponin, most likely leak. Plan May 25: Renal parameters within normal limit. Another dose of IV Lasix given. Continue to monitor electrolytes. Continue per consultants. May 24: Renal parameters normalized. Will give the Lasix 40 mg IV once. 1 dose of Kayexalate for hyperkalemia. Continue to monitor renal parameters. Previously: Today renal parameters are improved. Serum creatinine down to 1.6 from 2.7 Continue to hold lisinopril Continue to hold Lasix Half Normal saline 100 cc an hour one liter only was given yesterday Albumin bolus given yesterday, repeat as needed Monitor renal parameters Avoid nephrotoxic's Subjective ROS Limited/Unobtainable: No Constitutional: Reports: malaise Objective Objective Last 24 Hour Vital Signs Date Time Temp Pulse Resp B/P (MAP) Pulse Ox O2 Delivery O2 Flow Rate FiO2 05/25/20 12:00 15.0 05/25/20 12:00 Non-Rebreather 15.0 05/25/20 12:00 101 05/25/20 11:00 95 100 05/25/20 08:00 Non-Rebreather 15.0 05/25/20 08:00 97.5 105 20 153/81 (105) 95 05/25/20 08:00 15.0 05/25/20 08:00 107 05/25/20 06:39 93 100 05/25/20 04:00 102 05/25/20 04:00 Non-Rebreather 15.0 05/25/20 04:00 97.9 99 20 120/64 (82) 97 05/25/20 04:00 15.0 05/25/20 03:45 95 100 05/25/20 00:00 97.9 98 20 137/72 (93) 100 05/25/20 00:00 107 05/25/20 00:00 96 100 05/25/20 00:00 Non-Rebreather 15.0 05/24/20 20:00 98.1 71 19 137/68 (91) 95 05/24/20 20:00 15.0 05/24/20 20:00 Non-Rebreather 15.0 05/24/20 19:35 109 05/24/20 19:30 95 100 05/24/20 16:00 Non-Rebreather 15.0 05/24/20 16:00 15.0 05/24/20 16:00 97.1 76 21 127/77 (94) 99 05/24/20 15:32 88 25 95 Non-Rebreather 15.0 100 05/24/20 15:29 100 05/24/20 14:57 95 100 Intake and Output 05/24/20 05/25/20 18:59 06:59 Intake Total 800 ml 350 ml Output Total 1400 ml 300 ml Balance -600 ml 50 ml Intake Oral 800 ml 350 ml Output Urine Total 1400 ml 300 ml # Bowel Movements 2 Laboratory Tests 05/25/20 03:39: Sodium Level 134L, Potassium Level 3.7, Chloride Level 98, Carbon Dioxide Level 27, Anion Gap 9, Blood Urea Nitrogen 28H, Creatinine 1.0, Estimat Glomerular Filtration Rate 56.4, Glucose Level 132H, Uric Acid 5.6, Calcium Level 8.2L, Phosphorus Level 2.5, Magnesium Level 2.0, Total Bilirubin 0.4, Aspartate Amino Transf (AST/SGOT) 21, Alanine Aminotransferase (ALT/SGPT) 12, Alkaline Phosphatase 53, Total Protein 6.8, Albumin 2.4L, Globulin 4.4, Albumin/Globulin Ratio 0.5L Height (Feet): 5 Height (Inches): 0.00 Weight (Pounds): 100 General Appearance: no apparent distress Cardiovascular: tachycardia Respiratory/Chest: decreased breath sounds Abdomen: soft Montrell Carpio MD May 25, 2020 13:45
[2020-05-25 16:00] VITALS: BP 150/78
[2020-05-25 20:00] VITALS: BP 147/77
[2020-05-25] MEDS ORDERED: Albuterol/Ipratropium 3ml neb HHN PRN (20:15)
--- NOTE | 2020-05-25 20:37 | General Progress Note ---
Subjective Allergies: Coded Allergies: No Known Allergies (Unverified , 05/19/20) Subjective above noted on po diet tolerating well Objective Last 24 Hour Vital Signs Date Time Temp Pulse Resp B/P (MAP) Pulse Ox O2 Delivery O2 Flow Rate FiO2 05/25/20 20:23 114 20 93 Non-Rebreather 15.0 100 111 18 92 05/25/20 20:07 111 18 94 15.0 100 05/25/20 20:00 114 20 92 Non-Rebreather 15.0 100 05/25/20 16:00 Non-Rebreather 15.0 05/25/20 16:00 15.0 05/25/20 16:00 105 05/25/20 16:00 98.0 105 20 150/78 (102) 94 05/25/20 12:00 15.0 05/25/20 12:00 Non-Rebreather 15.0 05/25/20 12:00 97.0 103 20 154/86 (108) 94 05/25/20 12:00 101 05/25/20 11:00 95 100 05/25/20 08:00 Non-Rebreather 15.0 05/25/20 08:00 97.5 105 20 153/81 (105) 95 05/25/20 08:00 15.0 05/25/20 08:00 107 05/25/20 06:39 93 100 05/25/20 04:00 102 05/25/20 04:00 Non-Rebreather 15.0 05/25/20 04:00 97.9 99 20 120/64 (82) 97 05/25/20 04:00 15.0 05/25/20 03:45 95 100 05/25/20 00:00 97.9 98 20 137/72 (93) 100 05/25/20 00:00 107 05/25/20 00:00 96 100 05/25/20 00:00 Non-Rebreather 15.0 Intake and Output 05/24/20 05/25/20 19:00 07:00 Intake Total 800 ml 350 ml Output Total 1400 ml 300 ml Balance -600 ml 50 ml Intake Oral 800 ml 350 ml Output Urine Total 1400 ml 300 ml # Bowel Movements 2 Laboratory Tests 05/25/20 03:39: Sodium Level 134L, Potassium Level 3.7, Chloride Level 98, Carbon Dioxide Level 27, Anion Gap 9, Blood Urea Nitrogen 28H, Creatinine 1.0, Estimat Glomerular Filtration Rate 56.4, Glucose Level 132H, Uric Acid 5.6, Calcium Level 8.2L, Phosphorus Level 2.5, Magnesium Level 2.0, Total Bilirubin 0.4, Aspartate Amino Transf (AST/SGOT) 21, Alanine Aminotransferase (ALT/SGPT) 12, Alkaline Phosphatase 53, Total Protein 6.8, Albumin 2.4L, Globulin 4.4, Albumin/Globulin Ratio 0.5L Height (Feet): 5 Height (Inches): 0.00 Weight (Pounds): 100 Objective NCAT supple Coarse BS RR abd soft no edema Assessment/Plan Status: progressing Assessment/Plan: Assessment - Respiratory failure - improving - pleural effusions, s/p thoracentesis - Renal failure - Malnutrition - Elevated troponin - HTN - CML Recommendations - Pulmonary management - careful po diet - follow labs and exam Antonio Ratliff MD May 25, 2020 20:37
--- NOTE | 2020-05-25 21:04 | General Progress Note ---
Subjective ROS Limited/Unobtainable: Yes Allergies: Coded Allergies: No Known Allergies (Unverified , 05/19/20) Objective Last 24 Hour Vital Signs Date Time Temp Pulse Resp B/P (MAP) Pulse Ox O2 Delivery O2 Flow Rate FiO2 05/25/20 20:23 114 20 93 Non-Rebreather 15.0 100 111 18 92 05/25/20 20:07 111 18 94 15.0 100 05/25/20 20:00 98.1 110 28 147/77 (100) 95 05/25/20 20:00 114 20 92 Non-Rebreather 15.0 100 05/25/20 16:00 Non-Rebreather 15.0 05/25/20 16:00 15.0 05/25/20 16:00 105 05/25/20 16:00 98.0 105 20 150/78 (102) 94 05/25/20 12:00 15.0 05/25/20 12:00 Non-Rebreather 15.0 05/25/20 12:00 97.0 103 20 154/86 (108) 94 05/25/20 12:00 101 05/25/20 11:00 95 100 05/25/20 08:00 Non-Rebreather 15.0 05/25/20 08:00 97.5 105 20 153/81 (105) 95 05/25/20 08:00 15.0 05/25/20 08:00 107 05/25/20 06:39 93 100 05/25/20 04:00 102 05/25/20 04:00 Non-Rebreather 15.0 05/25/20 04:00 97.9 99 20 120/64 (82) 97 05/25/20 04:00 15.0 05/25/20 03:45 95 100 05/25/20 00:00 97.9 98 20 137/72 (93) 100 05/25/20 00:00 107 05/25/20 00:00 96 100 05/25/20 00:00 Non-Rebreather 15.0 Intake and Output 05/24/20 05/25/20 19:00 07:00 Intake Total 800 ml 350 ml Output Total 1400 ml 300 ml Balance -600 ml 50 ml Intake Oral 800 ml 350 ml Output Urine Total 1400 ml 300 ml # Bowel Movements 2 Laboratory Tests 05/25/20 03:39: Sodium Level 134L, Potassium Level 3.7, Chloride Level 98, Carbon Dioxide Level 27, Anion Gap 9, Blood Urea Nitrogen 28H, Creatinine 1.0, Estimat Glomerular Filtration Rate 56.4, Glucose Level 132H, Uric Acid 5.6, Calcium Level 8.2L, Phosphorus Level 2.5, Magnesium Level 2.0, Total Bilirubin 0.4, Aspartate Amino Transf (AST/SGOT) 21, Alanine Aminotransferase (ALT/SGPT) 12, Alkaline Phosphatase 53, Total Protein 6.8, Albumin 2.4L, Globulin 4.4, Albumin/Globulin Ratio 0.5L Height (Feet): 5 Height (Inches): 0.00 Weight (Pounds): 100 Assessment/Plan Problem List: (1) Leukemia ICD Codes: C95.90 - Leukemia, unspecified not having achieved remission SNOMED: 08852944 (2) Bilateral pleural effusion ICD Codes: J90 - Pleural effusion, not elsewhere classified SNOMED: 739984083 Status: progressing Assessment/Plan: check lytes afebrile on oxygen weak review chart and labs s/p thoracocenesis leukemia bilat pleural effusion Tiara Jara MD May 25, 2020 21:04
[2020-05-26] VITALS: BP 117/77
[2020-05-26 04:00] VITALS: BP 146/72
[2020-05-26 05:31] LABS: BASOPHILS % (AUTO) 0.5 % (0.0-2.0); EOSINOPHILS % (AUTO) 1.4 % (0.0-3.0); HEMATOCRIT 40.8 % (37.0-47.0); HEMOGLOBIN 13.5 G/DL (12.0-16.0); LYMPHOCYTES % (AUTO) 7.9 % (20.0-45.0); MEAN CORPUSCULAR VOLUME 87 FL (80-99); MONOCYTES % (AUTO) 8.5 % (1.0-10.0); NEUTROPHILS % (AUTO) 81.7 % (45.0-75.0); PLATELET COUNT 334 K/UL (150-450); RED BLOOD COUNT 4.69 M/UL (4.20-5.40); RED CELL DISTRIBUTION WIDTH 14.1 % (11.6-14.8); WHITE BLOOD COUNT 8.2 K/UL (4.8-10.8)
[2020-05-26 06:12] LABS: ALBUMIN 2.5 G/DL (3.4-5.0); ALBUMIN/GLOBULIN RATIO 0.6 (1.0-2.7); BILIRUBIN,TOTAL 0.3 MG/DL (0.2-1.0); CREATININE 1.2 MG/DL (0.55-1.30); PHOSPHORUS 3.4 MG/DL (2.5-4.9); POTASSIUM 3.9 MMOL/L (3.5-5.1)
--- NOTE | 2020-05-26 06:39 | Hematology/Onc Progress Note ---
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, sees oncologist in [facility] --> at this time STOP desatanib (also is the likely cause of pleural effusions) --> no is s/p thora per pulm/cards --> wbc trend 18->7 --> hgb 11.5 --> ABX ceftriaxone --> bipap, thora prn --> needs molecular and cytogenectic response for CML, f/u oncologist outpatient # Bilateral pleural effusion --> as per pulm, is on bipap --> thora as needed # HTN --> hydralazine and lisinopril --> sbp goal <140 # Dehydration --> goal of euvolemia # Elevated ddimer --> duplex lower ext r/o dvt==>neg # Dvt ppx scds Appreciate consultation and dw RN Subjective Constitutional: Denies: no symptoms, chills, fever, malaise, weakness, other HEENT: Denies: no symptoms, eye pain, blurred vision, tearing, double vision, ear pain, ear discharge, nose pain, nose congestion, throat pain, throat swelling, mouth pain, mouth swelling, other Cardiovascular: Denies: no symptoms, chest pain, edema, irregular heart rate, lightheadedness, palpitations, syncope, other Respiratory: Denies: no symptoms, cough, shortness of breath, SOB with excertion, SOB at rest, sputum, wheezing, other Gastrointestinal/Abdominal: Denies: no symptoms, abdomen distended, abdominal pain, black stools, tarry stools, blood in stool, constipated, diarrhea, difficu lty swallowing, nausea, poor appetite, poor fluid intake, rectal bleeding, vomiting, other Endocrine: Denies: no symptoms, excessive sweating, flushing, intolerance to cold, intolerance to heat, increased hunger, increased thirst, increased urine, unexplained weight gain, unexplained weight loss, other Allergies: Coded Allergies: No Known Allergies (Unverified , 05/19/20) Subjective 05/21 labs are noted, no bleeding, with pleural effusions due to desatanbib, s/p thora 05/22 labs are noted, no bleeding, on bipap, i dw her today to stop her med at once 05/24 wbc is improved, continue on ctx for one more day per id, bipap 05/26 have ordered for repeat cxr this am to reeval pleural effusions, labs noted Objective Objective Current Medications Medications (Trade) Dose Ordered Sig/Jennie Route PRN Reason Start Time Stop Time Status Last Admin Dose Admin Acetaminophen (Tylenol) 500 mg Q6H PRN ORAL Mild Pain (Pain Scale 1-3) 05/19/20 16:45 06/18/20 16:44 Albuterol/ Ipratropium (Albuterol/ Ipratropium) 3 ml Q4HRT PRN HHN Shortness of Breath 05/25/20 20:15 05/30/20 20:14 05/25/20 20:25 Clonidine HCl (Catapres Tab) 0.1 mg Q4H PRN ORAL SBP > 170 05/24/20 13:15 08/22/20 13:14 Docusate Sodium (Colace) 100 mg TWICE A DAY ORAL 05/22/20 18:00 06/21/20 17:59 05/25/20 18:03 Heparin Sodium (Porcine) (Heparin 5000 units/ml) 5,000 units EVERY 12 HOURS INJ 05/24/20 21:00 07/08/20 20:59 05/25/20 21:31 Pantoprazole (Protonix) 40 mg Q12HR ORAL 05/22/20 21:00 06/21/20 20:59 05/25/20 21:29 Last 24 Hour Vital Signs Date Time Temp Pulse Resp B/P (MAP) Pulse Ox O2 Delivery O2 Flow Rate FiO2 05/26/20 04:00 Non-Rebreather 05/26/20 04:00 97.7 107 28 146/72 (96) 93 05/26/20 04:00 110 05/26/20 04:00 15.0 05/26/20 00:05 92 15.0 100 05/26/20 00:00 115 05/26/20 00:00 98.0 111 28 117/77 (90) 94 05/26/20 00:00 Non-Rebreather 05/25/20 22:37 124 24 94 100 05/25/20 20:23 114 20 93 Non-Rebreather 15.0 100 111 18 92 05/25/20 20:07 111 18 94 15.0 100 05/25/20 20:00 110 05/25/20 20:00 15.0 05/25/20 20:00 98.1 110 28 147/77 (100) 95 05/25/20 20:00 Bi-pap 05/25/20 20:00 114 20 92 Non-Rebreather 15.0 100 05/25/20 16:00 Non-Rebreather 15.0 05/25/20 16:00 15.0 05/25/20 16:00 105 05/25/20 16:00 98.0 105 20 150/78 (102) 94 05/25/20 12:00 15.0 05/25/20 12:00 Non-Rebreather 15.0 05/25/20 12:00 97.0 103 20 154/86 (108) 94 05/25/20 12:00 101 05/25/20 11:00 95 100 05/25/20 08:00 Non-Rebreather 15.0 05/25/20 08:00 97.5 105 20 153/81 (105) 95 05/25/20 08:00 15.0 05/25/20 08:00 107 05/25/20 06:39 93 100 05/25/20 04:00 102 05/25/20 04:00 Non-Rebreather 15.0 05/25/20 04:00 97.9 99 20 120/64 (82) 97 05/25/20 04:00 15.0 05/25/20 03:45 95 100 05/25/20 00:00 97.9 98 20 137/72 (93) 100 05/25/20 00:00 107 05/25/20 00:00 96 100 05/25/20 00:00 Non-Rebreather 15.0 05/24/20 20:00 98.1 71 19 137/68 (91) 95 05/24/20 20:00 15.0 05/24/20 20:00 Non-Rebreather 15.0 05/24/20 19:35 109 05/24/20 19:30 95 100 05/24/20 16:00 Non-Rebreather 15.0 05/24/20 16:00 15.0 05/24/20 16:00 97.1 76 21 127/77 (94) 99 05/24/20 15:32 88 25 95 Non-Rebreather 15.0 100 05/24/20 15:29 100 05/24/20 14:57 95 100 05/24/20 12:00 101 05/24/20 12:00 15.0 05/24/20 12:00 Non-Rebreather 15.0 05/24/20 12:00 98.1 100 20 139/79 (99) 96 05/24/20 11:40 93 100 05/24/20 08:57 117 05/24/20 08:00 97.1 107 21 130/72 (91) 96 05/24/20 08:00 15.0 05/24/20 08:00 Non-Rebreather 15.0 05/24/20 07:24 94 100 Intake and Output 05/25/20 05/26/20 18:59 06:59 Intake Total 510 ml Output Total 700 ml 1200 ml Balance -190 ml -1200 ml Intake Oral 510 ml Output Urine Total 700 ml 1200 ml # Bowel Movements 1 Labs Test 05/24/20 03:41 05/24/20 06:41 05/24/20 09:51 05/25/20 03:39 Sodium Level 135 MMOL/L (136-145) 134 MMOL/L (136-145) Potassium Level 5.4 MMOL/L (3.5-5.1) 3.7 MMOL/L (3.5-5.1) Chloride Level 102 MMOL/L (98-107) 98 MMOL/L (98-107) Carbon Dioxide Level 27 MMOL/L (21-32) 27 MMOL/L (21-32) Anion Gap 7 mmol/L (5-15) 9 mmol/L (5-15) Blood Urea Nitrogen 35 mg/dL (7-18) 28 mg/dL (7-18) Creatinine 1.0 MG/DL (0.55-1.30) 1.0 MG/DL (0.55-1.30) Estimat Glomerular Filtration Rate 56.4 mL/min (>60) 56.4 mL/min (>60) Glucose Level 123 MG/DL (74-106) 132 MG/DL (74-106) Hemoglobin A1c 5.9 % (4.3-6.0) Uric Acid 6.5 MG/DL (2.6-7.2) 5.6 MG/DL (2.6-7.2) Calcium Level 8.7 MG/DL (8.5-10.1) 8.2 MG/DL (8.5-10.1) Phosphorus Level 3.3 MG/DL (2.5-4.9) 2.5 MG/DL (2.5-4.9) Magnesium Level 2.5 MG/DL (1.8-2.4) 2.0 MG/DL (1.8-2.4) Total Bilirubin 0.3 MG/DL (0.2-1.0) 0.4 MG/DL (0.2-1.0) Gamma Glutamyl Transpeptidase 5 U/L (5-85) Aspartate Amino Transf (AST/SGOT) 28 U/L (15-37) 21 U/L (15-37) Alanine Aminotransferase (ALT/SGPT) 15 U/L (12-78) 12 U/L (12-78) Alkaline Phosphatase 52 U/L (46-116) 53 U/L (46-116) Total Protein 6.3 G/DL (6.4-8.2) 6.8 G/DL (6.4-8.2) Albumin 2.5 G/DL (3.4-5.0) 2.4 G/DL (3.4-5.0) Globulin 3.8 g/dL 4.4 g/dL Albumin/Globulin Ratio 0.7 (1.0-2.7) 0.5 (1.0-2.7) Triglycerides Level 172 MG/DL (30-150) Cholesterol Level 173 MG/DL (< 200) LDL Cholesterol 87 mg/dL (<100) HDL Cholesterol 54 MG/DL (40-60) Cholesterol/HDL Ratio 3.2 (3.3-4.4) Cortisol AM Sample 19.8 UG/DL White Blood Count 6.0 K/UL (4.8-10.8) Red Blood Count 4.40 M/UL (4.20-5.40) Hemoglobin 12.7 G/DL (12.0-16.0) Hematocrit 39.2 % (37.0-47.0) Mean Corpuscular Volume 89 FL (80-99) Mean Corpuscular Hemoglobin 28.8 PG (27.0-31.0) Mean Corpuscular Hemoglobin Concent 32.3 G/DL (32.0-36.0) Red Cell Distribution Width 14.6 % (11.6-14.8) Platelet Count 262 K/UL (150-450) Mean Platelet Volume 4.5 FL (6.5-10.1) Neutrophils (%) (Auto) 73.3 % (45.0-75.0) Lymphocytes (%) (Auto) 11.3 % (20.0-45.0) Monocytes (%) (Auto) 8.4 % (1.0-10.0) Eosinophils (%) (Auto) 4.7 % (0.0-3.0) Basophils (%) (Auto) 2.2 % (0.0-2.0) Arterial Blood pH 7.420 (7.350-7.450) Arterial Blood Partial Pressure CO2 33.5 mmHg (35.0-45.0) Arterial Blood Partial Pressure O2 68.0 mmHg (75.0-100.0) Arterial Blood HCO3 21.2 mmol/L (22.0-26.0) Arterial Blood Oxygen Saturation 93.3 % (95-100) Arterial Blood Base Excess -2.5 (-2-2) Sammy Test Positive Test 05/26/20 03:05 White Blood Count 8.2 K/UL (4.8-10.8) Red Blood Count 4.69 M/UL (4.20-5.40) Hemoglobin 13.5 G/DL (12.0-16.0) Hematocrit 40.8 % (37.0-47.0) Mean Corpuscular Volume 87 FL (80-99) Mean Corpuscular Hemoglobin 28.7 PG (27.0-31.0) Mean Corpuscular Hemoglobin Concent 33.1 G/DL (32.0-36.0) Red Cell Distribution Width 14.1 % (11.6-14.8) Platelet Count 334 K/UL (150-450) Mean Platelet Volume 5.5 FL (6.5-10.1) Neutrophils (%) (Auto) 81.7 % (45.0-75.0) Lymphocytes (%) (Auto) 7.9 % (20.0-45.0) Monocytes (%) (Auto) 8.5 % (1.0-10.0) Eosinophils (%) (Auto) 1.4 % (0.0-3.0) Basophils (%) (Auto) 0.5 % (0.0-2.0) Sodium Level 135 MMOL/L (136-145) Potassium Level 3.9 MMOL/L (3.5-5.1) Chloride Level 97 MMOL/L (98-107) Carbon Dioxide Level 29 MMOL/L (21-32) Anion Gap 9 mmol/L (5-15) Blood Urea Nitrogen 39 mg/dL (7-18) Creatinine 1.2 MG/DL (0.55-1.30) Estimat Glomerular Filtration Rate 45.7 mL/min (>60) Glucose Level 167 MG/DL (74-106) Uric Acid 6.1 MG/DL (2.6-7.2) Calcium Level 9.0 MG/DL (8.5-10.1) Phosphorus Level 3.4 MG/DL (2.5-4.9) Magnesium Level 2.1 MG/DL (1.8-2.4) Total Bilirubin 0.3 MG/DL (0.2-1.0) Aspartate Amino Transf (AST/SGOT) 20 U/L (15-37) Alanine Aminotransferase (ALT/SGPT) 16 U/L (12-78) Alkaline Phosphatase 66 U/L (46-116) C-Reactive Protein, Quantitative 22.8 mg/dL (0.00-0.90) Total Protein 6.8 G/DL (6.4-8.2) Albumin 2.5 G/DL (3.4-5.0) Globulin 4.3 g/dL Albumin/Globulin Ratio 0.6 (1.0-2.7) Height (Feet): 5 Height (Inches): 0.00 Weight (Pounds): 100 Dionicio Higgins MD May 26, 2020 06:39
--- NOTE | 2020-05-26 07:51 | Pulmonology Progress Note ---
Subjective ROS Limited/Unobtainable: Yes Constitutional: Denies: fever, chills HEENT: Repors: no symptoms Respiratory: Reports: dry cough Gastrointestinal/Abdominal: Denies: nausea, vomiting, diarrhea Genitourinary: Reports: no symptoms Musculoskeletal: Denies: pain Allergies: Coded Allergies: No Known Allergies (Unverified , 05/19/20) Subjective care noted still on 100% oxygen Objective Last 24 Hour Vital Signs Date Time Temp Pulse Resp B/P (MAP) Pulse Ox O2 Delivery O2 Flow Rate FiO2 05/26/20 04:00 Non-Rebreather 05/26/20 04:00 97.7 107 28 146/72 (96) 93 05/26/20 04:00 110 05/26/20 04:00 15.0 05/26/20 00:05 92 15.0 100 05/26/20 00:00 115 05/26/20 00:00 98.0 111 28 117/77 (90) 94 05/26/20 00:00 Non-Rebreather 05/25/20 22:37 124 24 94 100 05/25/20 20:23 114 20 93 Non-Rebreather 15.0 100 111 18 92 05/25/20 20:07 111 18 94 15.0 100 05/25/20 20:00 110 05/25/20 20:00 15.0 05/25/20 20:00 98.1 110 28 147/77 (100) 95 05/25/20 20:00 Bi-pap 05/25/20 20:00 114 20 92 Non-Rebreather 15.0 100 05/25/20 16:00 Non-Rebreather 15.0 05/25/20 16:00 15.0 05/25/20 16:00 105 05/25/20 16:00 98.0 105 20 150/78 (102) 94 05/25/20 12:00 15.0 05/25/20 12:00 Non-Rebreather 15.0 05/25/20 12:00 97.0 103 20 154/86 (108) 94 05/25/20 12:00 101 05/25/20 11:00 95 100 05/25/20 08:00 Non-Rebreather 15.0 05/25/20 08:00 97.5 105 20 153/81 (105) 95 05/25/20 08:00 15.0 05/25/20 08:00 107 Intake and Output 05/25/20 05/26/20 19:00 07:00 Intake Total 510 ml Output Total 700 ml 1200 ml Balance -190 ml -1200 ml Intake Oral 510 ml Output Urine Total 700 ml 1200 ml # Bowel Movements 1 General Appearance: no acute distress Respiratory: chest wall non-tender, normal breath sounds, no respiratory distress, no accessory muscle use, decreased breath sounds Cardiovascular: normal peripheral pulses, normal rate Abdomen: normal bowel sounds Extremities: no cyanosis, no clubbing, no edema Laboratory Tests 05/26/20 03:05: White Blood Count 8.2, Red Blood Count 4.69, Hemoglobin 13.5, Hematocrit 40.8, Mean Corpuscular Volume 87, Mean Corpuscular Hemoglobin 28.7, Mean Corpuscular Hemoglobin Concent 33.1, Red Cell Distribution Width 14.1, Platelet Count 334, Mean Platelet Volume 5.5L, Neutrophils (%) (Auto) 81.7H, Lymphocytes (%) (Auto) 7.9L, Monocytes (%) (Auto) 8.5, Eosinophils (%) (Auto) 1.4, Basophils (%) (Auto) 0.5, Sodium Level 135L, Potassium Level 3.9, Chloride Level 97L, Carbon Dioxide Level 29, Anion Gap 9, Blood Urea Nitrogen 39H, Creatinine 1.2, Estimat Glomerular Filtration Rate 45.7, Glucose Level 167H, Uric Acid 6.1, Calcium Level 9.0, Phosphorus Level 3.4, Magnesium Level 2.1, Total Bilirubin 0.3, Aspartate Amino Transf (AST/SGOT) 20, Alanine Aminotransferase (ALT/SGPT) 16, Alkaline Phosphatase 66, C-Reactive Protein, Quantitative 22.8H, Total Protein 6.8, Albumin 2.5L, Globulin 4.3, Albumin/Globulin Ratio 0.6L Current Medications Medications (Trade) Dose Ordered Sig/Jennie Route PRN Reason Start Time Stop Time Status Last Admin Dose Admin Acetaminophen (Tylenol) 500 mg Q6H PRN ORAL Mild Pain (Pain Scale 1-3) 05/19/20 16:45 06/18/20 16:44 Albuterol/ Ipratropium (Albuterol/ Ipratropium) 3 ml Q4HRT PRN HHN Shortness of Breath 05/25/20 20:15 05/30/20 20:14 05/25/20 20:25 Clonidine HCl (Catapres Tab) 0.1 mg Q4H PRN ORAL SBP > 170 05/24/20 13:15 08/22/20 13:14 Docusate Sodium (Colace) 100 mg TWICE A DAY ORAL 05/22/20 18:00 06/21/20 17:59 05/25/20 18:03 Heparin Sodium (Porcine) (Heparin 5000 units/ml) 5,000 units EVERY 12 HOURS INJ 05/24/20 21:00 07/08/20 20:59 05/25/20 21:31 Pantoprazole (Protonix) 40 mg Q12HR ORAL 05/22/20 21:00 06/21/20 20:59 05/25/20 21:29 Assessment/Plan Assessment/Plan IMPRESSION: 1. History of CML, on dasatinib. 2. Possible pneumonia. 3. Large pleural effusion, s/p thoracentesis. 4. Hypertension. 5. Elevated D-dimer 6. Hypoxemic respiratory failure DISCUSSION: S/p R thoracentesis, will repeat bilaterally monitor off BiPAP broad-spectrum antibiotics. Cardiology following may need PlueRX if fluid recurs oxygen at high flow and concern for respiratory failure and need for intubation repeat CXR and ABG noted still full code and may need ICU will update family impression, plan, and exam edited and reviewed in detail care discussed with Ifeanyi Rosas MD May 26, 2020 07:51
[2020-05-26 08:00] VITALS: BP 136/62
[2020-05-26] MEDS: Docusate 100mg cap ORAL SCH ×2 (08:58→18:00)
[2020-05-26] MEDS ORDERED: DASATINIB 100 MG ORAL SCH (09:00)
[2020-05-26] MEDS ORDERED: Furosemide 40mg tab ORAL SCH (09:45)
--- NOTE | 2020-05-26 09:47 | Nephrology Progress Note ---
Assessment/Plan Problem List: (1) ASHLEY (acute kidney injury) (2) Bilateral pleural effusion (3) Leukemia Assessment Imp: Acute renal failure, with sudden jump in serum creatinine to 2.7 History of leukemia Hypertension, now hypotensive Hyponatremia on admission, improved Bilateral pleural effusion. Status post paracentesis. Elevated troponin, most likely leak. Plan May 26: Renal parameters stable. Started on Lasix 40 mg daily. Continue to monitor renal parameters and electrolytes. Continue per consultants. May 25: Renal parameters within normal limit. Another dose of IV Lasix given. Continue to monitor electrolytes. Continue per consultants. May 24: Renal parameters normalized. Will give the Lasix 40 mg IV once. 1 dose of Kayexalate for hyperkalemia. Continue to monitor renal parameters. Previously: Today renal parameters are improved. Serum creatinine down to 1.6 from 2.7 Continue to hold lisinopril Continue to hold Lasix Half Normal saline 100 cc an hour one liter only was given yesterday Albumin bolus given yesterday, repeat as needed Monitor renal parameters Avoid nephrotoxic's Subjective ROS Limited/Unobtainable: No Constitutional: Reports: malaise, weakness Objective Objective Last 24 Hour Vital Signs Date Time Temp Pulse Resp B/P (MAP) Pulse Ox O2 Delivery O2 Flow Rate FiO2 05/26/20 07:00 109 24 92 Non-Rebreather 15.0 100 05/26/20 04:00 Non-Rebreather 05/26/20 04:00 97.7 107 28 146/72 (96) 93 05/26/20 04:00 110 05/26/20 04:00 15.0 05/26/20 00:05 92 15.0 100 05/26/20 00:00 115 05/26/20 00:00 98.0 111 28 117/77 (90) 94 05/26/20 00:00 Non-Rebreather 05/25/20 22:37 124 24 94 100 05/25/20 20:23 114 20 93 Non-Rebreather 15.0 100 111 18 92 05/25/20 20:07 111 18 94 15.0 100 05/25/20 20:00 110 05/25/20 20:00 15.0 05/25/20 20:00 98.1 110 28 147/77 (100) 95 05/25/20 20:00 Bi-pap 05/25/20 20:00 114 20 92 Non-Rebreather 15.0 100 05/25/20 16:00 Non-Rebreather 15.0 05/25/20 16:00 15.0 05/25/20 16:00 105 05/25/20 16:00 98.0 105 20 150/78 (102) 94 05/25/20 12:00 15.0 05/25/20 12:00 Non-Rebreather 15.0 05/25/20 12:00 97.0 103 20 154/86 (108) 94 05/25/20 12:00 101 05/25/20 11:00 95 100 Intake and Output 05/25/20 05/26/20 19:00 07:00 Intake Total 510 ml Output Total 700 ml 1200 ml Balance -190 ml -1200 ml Intake Oral 510 ml Output Urine Total 700 ml 1200 ml # Bowel Movements 1 Laboratory Tests 05/26/20 03:05: White Blood Count 8.2, Red Blood Count 4.69, Hemoglobin 13.5, Hematocrit 40.8, M agata Corpuscular Volume 87, Mean Corpuscular Hemoglobin 28.7, Mean Corpuscular Hemoglobin Concent 33.1, Red Cell Distribution Width 14.1, Platelet Count 334, Mean Platelet Volume 5.5L, Neutrophils (%) (Auto) 81.7H, Lymphocytes (%) (Auto) 7.9L, Monocytes (%) (Auto) 8.5, Eosinophils (%) (Auto) 1.4, Basophils (%) (Auto) 0.5, Sodium Level 135L, Potassium Level 3.9, Chloride Level 97L, Carbon Dioxide Level 29, Anion Gap 9, Blood Urea Nitrogen 39H, Creatinine 1.2, Estimat Glomerular Filtration Rate 45.7, Glucose Level 167H, Uric Acid 6.1, Calcium Level 9.0, Phosphorus Level 3.4, Magnesium Level 2.1, Total Bilirubin 0.3, Aspartate Amino Transf (AST/SGOT) 20, Alanine Aminotransferase (ALT/SGPT) 16, Alkaline Phosphatase 66, C-Reactive Protein, Quantitative 22.8H, Total Protein 6.8, Albumin 2.5L, Globulin 4.3, Albumin/Globulin Ratio 0.6L Height (Feet): 5 Height (Inches): 0.00 Weight (Pounds): 100 General Appearance: no apparent distress Cardiovascular: tachycardia Respiratory/Chest: decreased breath sounds Abdomen: distended Montrell Carpio MD May 26, 2020 09:47
--- NOTE | 2020-05-26 10:46 | Infectious Diseases Prog Note ---
Assessment/Plan Assessment/Plan IMPRESSION: Leukocytosis, resolved systemic inflammatory response syndrome or sepsis, Bilateral pleural effusion, s/p thoracentesis CML, Accelerated hypertension, Elevation of troponin. Hypoxemia RECOMMENDATION: Observe off antibiotic We will follow up the CXR Subjective ROS Limited/Unobtainable: No Constitutional: Reports: no symptoms Respiratory: Reports: shortness of breath Gastrointestinal/Abdominal: Reports: no symptoms Genitourinary: Reports: no symptoms Allergies: Coded Allergies: No Known Allergies (Unverified , 05/19/20) Objective Last 24 Hour Vital Signs Date Time Temp Pulse Resp B/P (MAP) Pulse Ox O2 Delivery O2 Flow Rate FiO2 05/26/20 08:00 117 05/26/20 07:00 109 24 92 Non-Rebreather 15.0 100 05/26/20 04:00 Non-Rebreather 05/26/20 04:00 97.7 107 28 146/72 (96) 93 05/26/20 04:00 110 05/26/20 04:00 15.0 05/26/20 00:05 92 15.0 100 05/26/20 00:00 115 05/26/20 00:00 98.0 111 28 117/77 (90) 94 05/26/20 00:00 Non-Rebreather 05/25/20 22:37 124 24 94 100 05/25/20 20:23 114 20 93 Non-Rebreather 15.0 100 111 18 92 05/25/20 20:07 111 18 94 15.0 100 05/25/20 20:00 110 05/25/20 20:00 15.0 05/25/20 20:00 98.1 110 28 147/77 (100) 95 05/25/20 20:00 Bi-pap 05/25/20 20:00 114 20 92 Non-Rebreather 15.0 100 05/25/20 16:00 Non-Rebreather 15.0 05/25/20 16:00 15.0 05/25/20 16:00 105 05/25/20 16:00 98.0 105 20 150/78 (102) 94 05/25/20 12:00 15.0 05/25/20 12:00 Non-Rebreather 15.0 05/25/20 12:00 97.0 103 20 154/86 (108) 94 05/25/20 12:00 101 05/25/20 11:00 95 100 Height (Feet): 5 Height (Inches): 0.00 Weight (Pounds): 100 HEENT: mucous membranes moist Respiratory/Chest: lungs clear, other - oxgen by rebreathing karissa Cardiovascular: tachycardia Abdomen: soft, non tender Extremities: no edema Neurologic/Psychiatric: alert, oriented x 3, responsive Laboratory Tests Test 05/26/20 03:05 White Blood Count 8.2 K/UL (4.8-10.8) Red Blood Count 4.69 M/UL (4.20-5.40) Hemoglobin 13.5 G/DL (12.0-16.0) Hematocrit 40.8 % (37.0-47.0) Mean Corpuscular Volume 87 FL (80-99) Mean Corpuscular Hemoglobin 28.7 PG (27.0-31.0) Mean Corpuscular Hemoglobin Concent 33.1 G/DL (32.0-36.0) Red Cell Distribution Width 14.1 % (11.6-14.8) Platelet Count 334 K/UL (150-450) Mean Platelet Volume 5.5 FL (6.5-10.1) L Neutrophils (%) (Auto) 81.7 % (45.0-75.0) H Lymphocytes (%) (Auto) 7.9 % (20.0-45.0) L Monocytes (%) (Auto) 8.5 % (1.0-10.0) Eosinophils (%) (Auto) 1.4 % (0.0-3.0) Basophils (%) (Auto) 0.5 % (0.0-2.0) Sodium Level 135 MMOL/L (136-145) L Potassium Level 3.9 MMOL/L (3.5-5.1) Chloride Level 97 MMOL/L (98-107) L Carbon Dioxide Level 29 MMOL/L (21-32) Anion Gap 9 mmol/L (5-15) Blood Urea Nitrogen 39 mg/dL (7-18) H Creatinine 1.2 MG/DL (0.55-1.30) Estimat Glomerular Filtration Rate 45.7 mL/min (>60) Glucose Level 167 MG/DL (74-106) H Uric Acid 6.1 MG/DL (2.6-7.2) Calcium Level 9.0 MG/DL (8.5-10.1) Phosphorus Level 3.4 MG/DL (2.5-4.9) Magnesium Level 2.1 MG/DL (1.8-2.4) Total Bilirubin 0.3 MG/DL (0.2-1.0) Aspartate Amino Transf (AST/SGOT) 20 U/L (15-37) Alanine Aminotransferase (ALT/SGPT) 16 U/L (12-78) Alkaline Phosphatase 66 U/L (46-116) C-Reactive Protein, Quantitative 22.8 mg/dL (0.00-0.90) H Total Protein 6.8 G/DL (6.4-8.2) Albumin 2.5 G/DL (3.4-5.0) L Globulin 4.3 g/dL Albumin/Globulin Ratio 0.6 (1.0-2.7) L Current Medications Medications (Trade) Dose Ordered Sig/Jennie Route PRN Reason Start Time Stop Time Status Last Admin Dose Admin Acetaminophen (Tylenol) 500 mg Q6H PRN ORAL Mild Pain (Pain Scale 1-3) 05/19/20 16:45 06/18/20 16:44 Albuterol/ Ipratropium (Albuterol/ Ipratropium) 3 ml Q4HRT PRN HHN Shortness of Breath 05/25/20 20:15 05/30/20 20:14 05/25/20 20:25 Clonidine HCl (Catapres Tab) 0.1 mg Q4H PRN ORAL SBP > 170 05/24/20 13:15 08/22/20 13:14 Docusate Sodium (Colace) 100 mg TWICE A DAY ORAL 05/22/20 18:00 06/21/20 17:59 05/26/20 08:58 Furosemide (Lasix) 40 mg DAILY ORAL 05/27/20 09:00 06/26/20 08:59 Furosemide (Lasix) 40 mg ONCE ORAL 05/26/20 09:45 05/26/20 11:30 05/26/20 10:09 Pantoprazole (Protonix) 40 mg Q12HR ORAL 05/22/20 21:00 06/21/20 20:59 05/26/20 08:58 Timothy Pennington MD May 26, 2020 10:46
[2020-05-26 12:00] VITALS: BP 136/95
--- NOTE | 2020-05-26 12:17 | Cardiac Electrophysiology PN ---
Assessment/Plan Assessment/Plan 1. Accelerated hypertension. Now off Lisinopril and Lasix for acute renal failure BP stable off any BP meds. On prn Clonidine 2. Troponin leak. Level low and no CP and likely due to renal failure 3. Bilateral pleural effusions. S/P Right side thoracentesis. FU by Dr. Olson. Getting another thoracentesis today 4. Hyponatremia. 5. CML x 5 years, sees oncologist in [facility] [place] DCed desatanib (also is the likely cause of pleural effusions) Per Dr Dolan 6. Acute renal failure with sudden JUMP in creatinine to 2.7. FU Dr Carpio. Better after iv fluid, Albumin and off Lasix and Lisinopril. Cr now 1.[address] Carpio Subjective Subjective S/P Right sided thoracentesis ( 1.2 liters of serosanguineous fluid ) on 05/21/20. On 100% NRB face Mask. Alert in NAD. In SR Getting another thoracentesis today Objective Last 24 Hour Vital Signs Date Time Temp Pulse Resp B/P (MAP) Pulse Ox O2 Delivery O2 Flow Rate FiO2 05/26/20 08:00 96.8 111 18 136/62 (86) 91 05/26/20 08:00 15.0 100 05/26/20 08:00 Non-Rebreather 15.0 05/26/20 08:00 117 05/26/20 07:00 109 24 92 Non-Rebreather 15.0 100 05/26/20 04:00 Non-Rebreather 05/26/20 04:00 97.7 107 28 146/72 (96) 93 05/26/20 04:00 110 05/26/20 04:00 15.0 05/26/20 00:05 92 15.0 100 05/26/20 00:00 115 05/26/20 00:00 98.0 111 28 117/77 (90) 94 05/26/20 00:00 Non-Rebreather 05/25/20 22:37 124 24 94 100 05/25/20 20:23 114 20 93 Non-Rebreather 15.0 100 111 18 92 05/25/20 20:07 111 18 94 15.0 100 05/25/20 20:00 110 9/28/20 20:00 15.0 05/25/20 20:00 98.1 110 28 147/77 (100) 95 05/25/20 20:00 Bi-pap 05/25/20 20:00 114 20 92 Non-Rebreather 15.0 100 05/25/20 16:00 Non-Rebreather 15.0 05/25/20 16:00 15.0 05/25/20 16:00 105 05/25/20 16:00 98.0 105 20 150/78 (102) 94 Intake and Output 05/25/20 05/26/20 19:00 07:00 Intake Total 510 ml Output Total 700 ml 1200 ml Balance -190 ml -1200 ml Intake Oral 510 ml Output Urine Total 700 ml 1200 ml # Bowel Movements 1 Laboratory Tests Test 05/26/20 03:05 White Blood Count 8.2 K/UL (4.8-10.8) Red Blood Count 4.69 M/UL (4.20-5.40) Hemoglobin 13.5 G/DL (12.0-16.0) Hematocrit 40.8 % (37.0-47.0) Mean Corpuscular Volume 87 FL (80-99) Mean Corpuscular Hemoglobin 28.7 PG (27.0-31.0) Mean Corpuscular Hemoglobin Concent 33.1 G/DL (32.0-36.0) Red Cell Distribution Width 14.1 % (11.6-14.8) Platelet Count 334 K/UL (150-450) Mean Platelet Volume 5.5 FL (6.5-10.1) L Neutrophils (%) (Auto) 81.7 % (45.0-75.0) H Lymphocytes (%) (Auto) 7.9 % (20.0-45.0) L Monocytes (%) (Auto) 8.5 % (1.0-10.0) Eosinophils (%) (Auto) 1.4 % (0.0-3.0) Basophils (%) (Auto) 0.5 % (0.0-2.0) Sodium Level 135 MMOL/L (136-145) L Potassium Level 3.9 MMOL/L (3.5-5.1) Chloride Level 97 MMOL/L (98-107) L Carbon Dioxide Level 29 MMOL/L (21-32) Anion Gap 9 mmol/L (5-15) Blood Urea Nitrogen 39 mg/dL (7-18) H Creatinine 1.2 MG/DL (0.55-1.30) Estimat Glomerular Filtration Rate 45.7 mL/min (>60) Glucose Level 167 MG/DL (74-106) H Uric Acid 6.1 MG/DL (2.6-7.2) Calcium Level 9.0 MG/DL (8.5-10.1) Phosphorus Level 3.4 MG/DL (2.5-4.9) Magnesium Level 2.1 MG/DL (1.8-2.4) Total Bilirubin 0.3 MG/DL (0.2-1.0) Aspartate Amino Transf (AST/SGOT) 20 U/L (15-37) Alanine Aminotransferase (ALT/SGPT) 16 U/L (12-78) Alkaline Phosphatase 66 U/L (46-116) C-Reactive Protein, Quantitative 22.8 mg/dL (0.00-0.90) H Total Protein 6.8 G/DL (6.4-8.2) Albumin 2.5 G/DL (3.4-5.0) L Globulin 4.3 g/dL Albumin/Globulin Ratio 0.6 (1.0-2.7) L Objective HEAD AND NECK: No JVD. On Venturi Mask LUNGS: Decreased breath sounds. CARDIOVASCULAR: Regular S1 and S2 and tachycardic. ABDOMEN: Soft. EXTREMITIES: No pitting edema. Cristian England MD May 26, 2020 12:17
--- NOTE | 2020-05-26 13:56 | Diagnostic Imaging Report ---
Indication: Pleural effusion Technique: Single AP view of the chest. Comparison: Chest radiograph dated 05/24/2020 Findings: The cardiomediastinal silhouette is unchanged in appearance. Demonstration of large bilateral pleural effusions with associated bibasilar consolidation. No pneumothorax. IMPRESSION: No significant change from prior examination.
[2020-05-26 15:28] VITALS: BP_SYST 140; BP_SYST 154; BP_DIAS 100; BP_DIAS 85
[2020-05-26 20:00] VITALS: BP 151/82
--- NOTE | 2020-05-26 20:17 | General Progress Note ---
Subjective Allergies: Coded Allergies: No Known Allergies (Unverified , 05/19/20) Subjective above noted on po diet tolerating well Objective Last 24 Hour Vital Signs Date Time Temp Pulse Resp B/P (MAP) Pulse Ox O2 Delivery O2 Flow Rate FiO2 05/26/20 19:16 93 Non-Rebreather 15.0 100 05/26/20 19:15 110 20 93 Non-Rebreather 15.0 100 05/26/20 16:00 113 05/26/20 16:00 Non-Rebreather 15.0 05/26/20 16:00 15.0 100 05/26/20 15:28 97.5 111 18 140/85 (103) 94 05/26/20 12:00 97.5 105 18 136/95 (109) 93 05/26/20 12:00 15.0 100 05/26/20 12:00 108 05/26/20 12:00 Non-Rebreather 15.0 05/26/20 08:00 96.8 111 18 136/62 (86) 91 05/26/20 08:00 15.0 100 05/26/20 08:00 Non-Rebreather 15.0 05/26/20 08:00 117 05/26/20 07:00 109 24 92 Non-Rebreather 15.0 100 05/26/20 04:00 Non-Rebreather 05/26/20 04:00 97.7 107 28 146/72 (96) 93 05/26/20 04:00 110 05/26/20 04:00 15.0 05/26/20 00:05 92 15.0 100 05/26/20 00:00 115 05/26/20 00:00 98.0 111 28 117/77 (90) 94 05/26/20 00:00 Non-Rebreather 05/25/20 22:37 124 24 94 100 05/25/20 20:23 114 20 93 Non-Rebreather 15.0 100 111 18 92 Intake and Output 05/25/20 05/26/20 19:00 07:00 Intake Total 510 ml Output Total 700 ml 1200 ml Balance -190 ml -1200 ml Intake Oral 510 ml Output Urine Total 700 ml 1200 ml # Bowel Movements 1 Laboratory Tests 05/26/20 03:05: White Blood Count 8.2, Red Blood Count 4.69, Hemoglobin 13.5, Hematocrit 40.8, Mean Corpuscular Volume 87, Mean Corpuscular Hemoglobin 28.7, Mean Corpuscular Hemoglobin Concent 33.1, Red Cell Distribution Width 14.1, Platelet Count 334, Mean Platelet Volume 5.5L, Neutrophils (%) (Auto) 81.7H, Lymphocytes (%) (Auto) 7.9L, Monocytes (%) (Auto) 8.5, Eosinophils (%) (Auto) 1.4, Basophils (%) (Auto) 0.5, Sodium Level 135L, Potassium Level 3.9, Chloride Level 97L, Carbon Dioxide Level 29, Anion Gap 9, Blood Urea Nitrogen 39H, Creatinine 1.2, Estimat Glomerular Filtration Rate 45.7, Glucose Level 167H, Uric Acid 6.1, Calcium Level 9.0, Phosphorus Level 3.4, Magnesium Level 2.1, Total Bilirubin 0.3, Aspartate Amino Transf (AST/SGOT) 20, Alanine Aminotransferase (ALT/SGPT) 16, Alkaline Phosphatase 66, C-Reactive Protein, Quantitative 22.8H, Total Protein 6.8, Albumin 2.5L, Globulin 4.3, Albumin/Globulin Ratio 0.6L Height (Feet): 5 Height (Inches): 0.00 Weight (Pounds): 100 Objective NCAT supple Coarse BS RR abd soft no edema Assessment/Plan Status: progressing Assessment/Plan: Assessment - Respiratory failure - improving - pleural effusions, s/p thoracentesis - Renal failure - Malnutrition - Elevated troponin - HTN - CML Recommendations - Pulmonary management - careful po diet - follow labs and exam Antonio Ratliff MD May 26, 2020 20:17
--- NOTE | 2020-05-26 20:55 | General Progress Note ---
Subjective ROS Limited/Unobtainable: Yes Allergies: Coded Allergies: No Known Allergies (Unverified , 05/19/20) Objective Last 24 Hour Vital Signs Date Time Temp Pulse Resp B/P (MAP) Pulse Ox O2 Delivery O2 Flow Rate FiO2 05/26/20 19:16 93 Non-Rebreather 15.0 100 05/26/20 19:15 110 20 93 Non-Rebreather 15.0 100 05/26/20 16:00 113 05/26/20 16:00 Non-Rebreather 15.0 05/26/20 16:00 15.0 100 05/26/20 15:28 97.5 111 18 140/85 (103) 94 05/26/20 12:00 97.5 105 18 136/95 (109) 93 05/26/20 12:00 15.0 100 05/26/20 12:00 108 05/26/20 12:00 Non-Rebreather 15.0 05/26/20 08:00 96.8 111 18 136/62 (86) 91 05/26/20 08:00 15.0 100 05/26/20 08:00 Non-Rebreather 15.0 05/26/20 08:00 117 05/26/20 07:00 109 24 92 Non-Rebreather 15.0 100 05/26/20 04:00 Non-Rebreather 05/26/20 04:00 97.7 107 28 146/72 (96) 93 05/26/20 04:00 110 05/26/20 04:00 15.0 05/26/20 00:05 92 15.0 100 05/26/20 00:00 115 05/26/20 00:00 98.0 111 28 117/77 (90) 94 05/26/20 00:00 Non-Rebreather 05/25/20 22:37 124 24 94 100 Intake and Output 05/25/20 05/26/20 19:00 07:00 Intake Total 510 ml Output Total 700 ml 1200 ml Balance -190 ml -1200 ml Intake Oral 510 ml Output Urine Total 700 ml 1200 ml # Bowel Movements 1 Laboratory Tests 05/26/20 03:05: White Blood Count 8.2, Red Blood Count 4.69, Hemoglobin 13.5, Hematocrit 40.8, Mean Corpuscular Volume 87, Mean Corpuscular Hemoglobin 28.7, Mean Corpuscular Hemoglobin Concent 33.1, Red Cell Distribution Width 14.1, Platelet Count 334, Mean Platelet Volume 5.5L, Neutrophils (%) (Auto) 81.7H, Lymphocytes (%) (Auto) 7.9L, Monocytes (%) (Auto) 8.5, Eosinophils (%) (Auto) 1.4, Basophils (%) (Auto) 0.5, Sodium Level 135L, Potassium Level 3.9, Chloride Level 97L, Carbon Dioxide Level 29, Anion Gap 9, Blood Urea Nitrogen 39H, Creatinine 1.2, Estimat Glomerular Filtration Rate 45.7, Glucose Level 167H, Uric Acid 6.1, Calcium Level 9.0, Phosphorus Level 3.4, Magnesium Level 2.1, Total Bilirubin 0.3, Aspartate Amino Transf (AST/SGOT) 20, Alanine Aminotransferase (ALT/SGPT) 16, Alkaline Phosphatase 66, C-Reactive Protein, Quantitative 22.8H, Total Protein 6.8, Albumin 2.5L, Globulin 4.3, Albumin/Globulin Ratio 0.6L Height (Feet): 5 Height (Inches): 0.00 Weight (Pounds): 100 Assessment/Plan Problem List: (1) Leukemia ICD Codes: C95.90 - Leukemia, unspecified not having achieved remission SNOMED: [id number] (2) Bilateral pleural effusion ICD Codes: J90 - Pleural effusion, not elsewhere classified SNOMED: 907851268 Status: progressing Assessment/Plan: sob weak reviewed chart no change s/p thoracocenesis leukemia bilat pleural effusion Tiara Jara MD May 26, 2020 20:55
[2020-05-27] VITALS: BP 147/78
[2020-05-27 04:00] VITALS: BP 134/74
--- NOTE | 2020-05-27 06:34 | Hematology/Onc Progress Note ---
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, sees oncologist in [facility] --> at this time STOP desatanib (also is the likely cause of pleural effusions) --> no is s/p thora per pulm/cards --> wbc trend 18->7 --> hgb 11.5 --> ABX ceftriaxone --> bipap, thora prn --> needs molecular and cytogenectic response for CML, f/u oncologist outpatient # Bilateral pleural effusion --> as per pulm, is on bipap --> thora as needed # HTN --> hydralazine and lisinopril --> sbp goal <140 # Dehydration --> goal of euvolemia # Elevated ddimer --> duplex lower ext r/o dvt==>neg # Dvt ppx scds Appreciate consultation and dw RN Subjective HEENT: Denies: no symptoms, eye pain, blurred vision, tearing, double vision, ear pain, ear discharge, nose pain, nose congestion, throat pain, throat swelling, mouth pain, mouth swelling, other Cardiovascular: Denies: no symptoms, chest pain, edema, irregular heart rate, lightheadedness, palpitations, syncope, other Respiratory: Denies: no symptoms, cough, shortness of breath, SOB with excertion, SOB at rest, sputum, wheezing, other Gastrointestinal/Abdominal: Denies: no symptoms, abdomen distended, abdominal pain, black stools, tarry stools, blood in stool, constipated, diarrhea, difficulty swallowing, nausea, poor appetite, poor fluid intake, rectal bleeding, vomiting, other Genitourinary: Denies: no symptoms, burning, discharge, frequency, flank pain, hematuria, incontinence, pain, urgency, other Endocrine: Denies: no symptoms, excessive sweating, flushing, intolerance to cold, intolerance to heat, increased hunger, increased thirst, increased urine, unexplained weight gain, unexplained weight loss, other Allergies: Coded Allergies: No Known Allergies (Unverified , 05/19/20) Subjective 05/21 labs are noted, no bleeding, with pleural effusions due to desatanbib, s/p thora 05/22 labs are noted, no bleeding, on bipap, i dw her today to stop her med at once 05/24 wbc is improved, continue on ctx for one more day per id, emelyn 05/26 have ordered for repeat cxr this am to reeval pleural effusions, labs noted 05/27 with b/l pleural effusions, aware from constantin antony prn Objective Objective Current Medications Medications (Trade) Dose Ordered Sig/Jennie Route PRN Reason Start Time Stop Time Status Last Admin Dose Admin Acetaminophen (Tylenol) 500 mg Q6H PRN ORAL Mild Pain (Pain Scale 1-3) 05/19/20 16:45 06/18/20 16:44 Albuterol/ Ipratropium (Albuterol/ Ipratropium) 3 ml Q4HRT PRN HHN Shortness of Breath 05/25/20 20:15 05/30/20 20:14 05/25/20 20:25 Clonidine HCl (Catapres Tab) 0.1 mg Q4H PRN ORAL SBP > 170 05/24/20 13:15 08/22/20 13:14 Docusate Sodium (Colace) 100 mg TWICE A DAY ORAL 05/22/20 18:00 06/21/20 17:59 05/26/20 08:58 Furosemide (Lasix) 40 mg DAILY ORAL 05/27/20 09:00 06/26/20 08:59 Pantoprazole (Protonix) 40 mg Q12HR ORAL 05/22/20 21:00 06/21/20 20:59 05/26/20 21:07 Last 24 Hour Vital Signs Date Time Temp Pulse Resp B/P (MAP) Pulse Ox O2 Delivery O2 Flow Rate FiO2 05/27/20 04:00 97.6 108 24 134/74 (94) 94 05/27/20 04:00 15.0 100 05/27/20 04:00 112 05/27/20 04:00 Bi-pap 05/27/20 02:30 15.0 100 05/27/20 00:01 113 39 95 100 05/27/20 00:00 80 05/27/20 00:00 Bi-pap 05/27/20 00:00 114 05/27/20 00:00 97.9 111 24 147/78 (101) 96 05/26/20 20:00 15.0 100 05/26/20 20:00 98.2 110 24 151/82 (105) 94 05/26/20 20:00 113 05/26/20 20:00 Non-Rebreather 15.0 05/26/20 19:16 93 Non-Rebreather 15.0 100 05/26/20 19:15 110 20 93 Non-Rebreather 15.0 100 05/26/20 16:00 113 05/26/20 16:00 Non-Rebreather 15.0 05/26/20 16:00 15.0 100 05/26/20 15:28 97.5 111 18 140/85 (103) 94 05/26/20 12:00 97.5 105 18 136/95 (109) 93 05/26/20 12:00 15.0 100 05/26/20 12:00 108 05/26/20 12:00 Non-Rebreather 15.0 05/26/20 08:00 96.8 111 18 136/62 (86) 91 05/26/20 08:00 15.0 100 05/26/20 08:00 Non-Rebreather 15.0 05/26/20 08:00 117 05/26/20 07:00 109 24 92 Non-Rebreather 15.0 100 05/26/20 04:00 Non-Rebreather 05/26/20 04:00 97.7 107 28 146/72 (96) 93 05/26/20 04:00 110 05/26/20 04:00 15.0 05/26/20 00:05 92 15.0 100 05/26/20 00:00 115 05/26/20 00:00 98.0 111 28 117/77 (90) 94 05/26/20 00:00 Non-Rebreather 05/25/20 22:37 124 24 94 100 05/25/20 20:23 114 20 93 Non-Rebreather 15.0 100 111 18 92 05/25/20 20:07 111 18 94 15.0 100 05/25/20 20:00 93 Non-Rebreather 15.0 100 05/25/20 20:00 110 05/25/20 20:00 15.0 05/25/20 20:00 98.1 110 28 147/77 (100) 95 05/25/20 20:00 Bi-pap 05/25/20 20:00 114 20 92 Non-Rebreather 15.0 100 05/25/20 16:00 Non-Rebreather 15.0 05/25/20 16:00 15.0 05/25/20 16:00 105 05/25/20 16:00 98.0 105 20 150/78 (102) 94 05/25/20 12:00 15.0 05/25/20 12:00 Non-Rebreather 15.0 05/25/20 12:00 97.0 103 20 154/86 (108) 94 05/25/20 12:00 101 05/25/20 11:00 95 100 05/25/20 08:00 Non-Rebreather 15.0 05/25/20 08:00 97.5 105 20 153/81 (105) 95 05/25/20 08:00 15.0 05/25/20 08:00 107 05/25/20 06:39 93 100 Intake and Output 05/26/20 05/27/20 18:59 06:59 Intake Total 390 ml 310 ml Output Total 300 ml 380 ml Balance 90 ml -70 ml Intake Oral 390 ml 310 ml Output Urine Total 300 ml 380 ml # Bowel Movements 4 Labs Test 05/24/20 06:41 05/24/20 09:51 05/25/20 03:39 05/26/20 03:05 White Blood Count 6.0 K/UL (4.8-10.8) 8.2 K/UL (4.8-10.8) Red Blood Count 4.40 M/UL (4.20-5.40) 4.69 M/UL (4.20-5.40) Hemoglobin 12.7 G/DL (12.0-16.0) 13.5 G/DL (12.0-16.0) Hematocrit 39.2 % (37.0-47.0) 40.8 % (37.0-47.0) Mean Corpuscular Volume 89 FL (80-99) 87 FL (80-99) Mean Corpuscular Hemoglobin 28.8 PG (27.0-31.0) 28.7 PG (27.0-31.0) Mean Corpuscular Hemoglobin Concent 32.3 G/DL (32.0-36.0) 33.1 G/DL (32.0-36.0) Red Cell Distribution Width 14.6 % (11.6-14.8) 14.1 % (11.6-14.8) Platelet Count 262 K/UL (150-450) 334 K/UL (150-450) Mean Platelet Volume 4.5 FL (6.5-10.1) 5.5 FL (6.5-10.1) Neutrophils (%) (Auto) 73.3 % (45.0-75.0) 81.7 % (45.0-75.0) Lymphocytes (%) (Auto) 11.3 % (20.0-45.0) 7.9 % (20.0-45.0) Monocytes (%) (Auto) 8.4 % (1.0-10.0) 8.5 % (1.0-10.0) Eosinophils (%) (Auto) 4.7 % (0.0-3.0) 1.4 % (0.0-3.0) Basophils (%) (Auto) 2.2 % (0.0-2.0) 0.5 % (0.0-2.0) Arterial Blood pH 7.420 (7.350-7.450) Arterial Blood Partial Pressure CO2 33.5 mmHg (35.0-45.0) Arterial Blood Partial Pressure O2 68.0 mmHg (75.0-100.0) Arterial Blood HCO3 21.2 mmol/L (22.0-26.0) Arterial Blood Oxygen Saturation 93.3 % (95-100) Arterial Blood Base Excess -2.5 (-2-2) Sammy Test Positive Sodium Level 134 MMOL/L (136-145) 135 MMOL/L (136-145) Potassium Level 3.7 MMOL/L (3.5-5.1) 3.9 MMOL/L (3.5-5.1) Chloride Level 98 MMOL/L (98-107) 97 MMOL/L (98-107) Carbon Dioxide Level 27 MMOL/L (21-32) 29 MMOL/L (21-32) Anion Gap 9 mmol/L (5-15) 9 mmol/L (5-15) Blood Urea Nitrogen 28 mg/dL (7-18) 39 mg/dL (7-18) Creatinine 1.0 MG/DL (0.55-1.30) 1.2 MG/DL (0.55-1.30) Estimat Glomerular Filtration Rate 56.4 mL/min (>60) 45.7 mL/min (>60) Glucose Level 132 MG/DL (74-106) 167 MG/DL (74-106) Uric Acid 5.6 MG/DL (2.6-7.2) 6.1 MG/DL (2.6-7.2) Calcium Level 8.2 MG/DL (8.5-10.1) 9.0 MG/DL (8.5-10.1) Phosphorus Level 2.5 MG/DL (2.5-4.9) 3.4 MG/DL (2.5-4.9) Magnesium Level 2.0 MG/DL (1.8-2.4) 2.1 MG/DL (1.8-2.4) Total Bilirubin 0.4 MG/DL (0.2-1.0) 0.3 MG/DL (0.2-1.0) Aspartate Amino Transf (AST/SGOT) 21 U/L (15-37) 20 U/L (15-37) Alanine Aminotransferase (ALT/SGPT) 12 U/L (12-78) 16 U/L (12-78) Alkaline Phosphatase 53 U/L (46-116) 66 U/L (46-116) Total Protein 6.8 G/DL (6.4-8.2) 6.8 G/DL (6.4-8.2) Albumin 2.4 G/DL (3.4-5.0) 2.5 G/DL (3.4-5.0) Globulin 4.4 g/dL 4.3 g/dL Albumin/Globulin Ratio 0.5 (1.0-2.7) 0.6 (1.0-2.7) C-Reactive Protein, Quantitative 22.8 mg/dL (0.00-0.90) Height (Feet): 5 Height (Inches): 0.00 Weight (Pounds): 100 Dionicio Higgins MD May 27, 2020 06:33
[2020-05-27 08:00] VITALS: BP 156/77
[2020-05-27 08:07] LABS: BASOPHILS % (AUTO) 1.2 % (0.0-2.0); EOSINOPHILS % (AUTO) 1.4 % (0.0-3.0); HEMATOCRIT 38.8 % (37.0-47.0); HEMOGLOBIN 13.1 G/DL (12.0-16.0); LYMPHOCYTES % (AUTO) 4.8 % (20.0-45.0); MEAN CORPUSCULAR VOLUME 87 FL (80-99); MONOCYTES % (AUTO) 8.1 % (1.0-10.0); NEUTROPHILS % (AUTO) 84.6 % (45.0-75.0); PLATELET COUNT 379 K/UL (150-450); RED BLOOD COUNT 4.49 M/UL (4.20-5.40); RED CELL DISTRIBUTION WIDTH 13.8 % (11.6-14.8)
[2020-05-27] MEDS: Furosemide 40mg tab ORAL SCH (08:39)
[2020-05-27] MEDS: Docusate 100mg cap ORAL SCH ×2 (08:39→17:25)
[2020-05-27 12:00] VITALS: BP 139/77
--- NOTE | 2020-05-27 13:12 | Infectious Diseases Prog Note ---
Assessment/Plan Assessment/Plan IMPRESSION: Leukocytosis, resolved systemic inflammatory response syndrome or sepsis, Recurrent pleural effusion, CML, Accelerated hypertension, Elevation of troponin. Hypoxemia RECOMMENDATION: Observe off antibiotic Will have another thoracentesis today Subjective ROS Limited/Unobtainable: No Constitutional: Reports: no symptoms, other - feels better Respiratory: Reports: shortness of breath Gastrointestinal/Abdominal: Reports: no symptoms Genitourinary: Reports: no symptoms Allergies: Coded Allergies: No Known Allergies (Unverified , 05/19/20) Objective Last 24 Hour Vital Signs Date Time Temp Pulse Resp B/P (MAP) Pulse Ox O2 Delivery O2 Flow Rate FiO2 05/27/20 12:07 Bi-pap 05/27/20 12:00 15.0 100 05/27/20 12:00 97.3 112 24 139/77 (97) 94 05/27/20 08:00 Bi-pap 05/27/20 08:00 15.0 100 05/27/20 08:00 97.3 108 24 156/77 (103) 95 05/27/20 07:43 114 05/27/20 07:07 94 Non-Rebreather 15.0 100 05/27/20 07:07 113 20 94 Non-Rebreather 15.0 100 05/27/20 04:00 97.6 108 24 134/74 (94) 94 05/27/20 04:00 15.0 100 05/27/20 04:00 112 05/27/20 04:00 Bi-pap 05/27/20 02:30 15.0 100 05/27/20 00:01 113 39 95 100 05/27/20 00:00 80 05/27/20 00:00 Bi-pap 05/27/20 00:00 114 05/27/20 00:00 97.9 111 24 147/78 (101) 96 05/26/20 20:00 15.0 100 05/26/20 20:00 98.2 110 24 151/82 (105) 94 05/26/20 20:00 113 05/26/20 20:00 Non-Rebreather 15.0 05/26/20 19:16 93 Non-Rebreather 15.0 100 05/26/20 19:15 110 20 93 Non-Rebreather 15.0 100 05/26/20 16:00 113 05/26/20 16:00 Non-Rebreather 15.0 05/26/20 16:00 15.0 100 05/26/20 15:28 97.5 111 18 140/85 (103) 94 Height (Feet): 5 Height (Inches): 0.00 Weight (Pounds): 100 HEENT: mucous membranes moist Respiratory/Chest: decreased breath sounds, other - Oxygen by rebreathing mask Cardiovascular: tachycardia Abdomen: soft, non tender Extremities: no edema Neurologic/Psychiatric: alert, oriented x 3, responsive Laboratory Tests Test 05/27/20 07:45 White Blood Count 10.0 K/UL (4.8-10.8) Red Blood Count 4.49 M/UL (4.20-5.40) Hemoglobin 13.1 G/DL (12.0-16.0) Hematocrit 38.8 % (37.0-47.0) Mean Corpuscular Volume 87 FL (80-99) Mean Corpuscular Hemoglobin 29.2 PG (27.0-31.0) Mean Corpuscular Hemoglobin Concent 33.8 G/DL (32.0-36.0) Red Cell Distribution Width 13.8 % (11.6-14.8) Platelet Count 379 K/UL (150-450) Mean Platelet Volume 5.8 FL (6.5-10.1) L Neutrophils (%) (Auto) 84.6 % (45.0-75.0) H Lymphocytes (%) (Auto) 4.8 % (20.0-45.0) L Monocytes (%) (Auto) 8.1 % (1.0-10.0) Eosinophils (%) (Auto) 1.4 % (0.0-3.0) Basophils (%) (Auto) 1.2 % (0.0-2.0) Current Medications Medications (Trade) Dose Ordered Sig/Jennie Route PRN Reason Start Time Stop Time Status Last Admin Dose Admin Acetaminophen (Tylenol) 500 mg Q6H PRN ORAL Mild Pain (Pain Scale 1-3) 05/19/20 16:45 06/18/20 16:44 Albuterol/ Ipratropium (Albuterol/ Ipratropium) 3 ml Q4HRT PRN HHN Shortness of Breath 05/25/20 20:15 05/30/20 20:14 05/25/20 20:25 Clonidine HCl (Catapres Tab) 0.1 mg Q4H PRN ORAL SBP > 170 05/24/20 13:15 08/22/20 13:14 Docusate Sodium (Colace) 100 mg TWICE A DAY ORAL 05/22/20 18:00 06/21/20 17:59 05/27/20 08:39 Furosemide (Lasix) 40 mg DAILY ORAL 05/27/20 09:00 06/26/20 08:59 05/27/20 08:39 Pantoprazole (Protonix) 40 mg Q12HR ORAL 05/22/20 21:00 06/21/20 20:59 05/27/20 08:39 Timothy Pennington MD May 27, 2020 13:11
--- NOTE | 2020-05-27 14:06 | Pre-Procedure Note/Attestation ---
Pre-Procedure Note/Attestation Complete Prior to Procedure Planned Procedure: right Procedure Narrative: thoracentesis Indications for Procedure Pre-Operative Diagnosis: pleural effusion Attestation I attest that I discussed the nature of the procedure; its benefits; risks and complications; and alternatives (and the risks and benefits of such alternatives), prior to the procedure, with the patient (or the patient's legal labor relations representative). I attest that, if there was a reasonable possibility of needing a blood tra nsfusion, the patient (or the patient's legal labor relations representative) was given the [facility] standardized written summary, pursuant to the [place] Blood Safety Act ([place] Health and Safety Code # 1645, as amended). I attest that I re-evaluated the patient just prior to the surgery and that there has been no change in the patient's H&P, except as documented below: Hany Chacon MD May 27, 2020 14:06
--- NOTE | 2020-05-27 14:06 | Brief Operative Note ---
Immediate Post Operative Note Operative Note Pre-op Diagnosis: pleural effusion Procedure: L thoracentesis Post-op Diagnosis: same as pre-op Surgeon: Noah Baca Anesthesia: local Specimen: none Complications: none Fluids: none Implant(s) used?: No Hany Baca MD May 27, 2020 14:06
--- NOTE | 2020-05-27 14:13 | Diagnostic Imaging Report ---
Indication: Postthoracentesis, shortness of breath Technique: One view of the chest Comparison: 05/26/2020 Findings: Interim complete or near complete resolution of previously demonstrated large right pleural effusion. No pneumothorax. Large left pleural effusion persists, unchanged. Bilateral interstitial and airspace edema versus infiltrates are unchanged. Impression: Resolved or nearly resolved right pleural effusion, status post thoracentesis. No radiographically evident complication Other findings as noted
[2020-05-27 16:00] VITALS: BP 104/58
--- NOTE | 2020-05-27 16:02 | Diagnostic Imaging Report ---
Indications: Pleural effusion Technique: Ultrasound used to localize optimal puncture site. Sterile prepping and draping right chest. Local anesthesia with 1% lidocaine. Under real-time ultrasound guidance, puncture pleural space using thoracentesis needle. Stylet removed. Catheter placed to vacuum bottle suction. Total 1500 milliliters of serosanguineous fluid aspirated. Aspiration was halted before the entirety of the pleural fluid was drained due to patient coughing. Follow-up sonography demonstrates only small amount of residual pleural fluid Patient tolerated procedure well, without immediate complication. Findings: Followup sonography demonstrates small amount of residual pleural fluid Impression: Successful ultrasound-guided thoracentesis, yielding 1500 milliliters of fluid
--- NOTE | 2020-05-27 16:08 | Cardiac Electrophysiology PN ---
Assessment/Plan Assessment/Plan 1. Accelerated hypertension. Now off Lisinopril and Lasix for acute renal failure BP stable off any BP meds. On prn Clonidine 2. Troponin leak. Level low and no CP and likely due to renal failure 3. Bilateral pleural effusions. S/P Right side thoracentesis. FU by Dr. Olson. S/P Left thoracentesis 05/26/20 4. Hyponatremia. 5. CML x 5 years, sees oncologist in [facility] area DCed desatanib (also is the likely cause of pleural effusions) Per Dr Dolan 6. Acute renal failure with sudden JUMP in creatinine to 2.7. FU Dr Carpio. Better after iv fluid, Albumin and off Lasix and Lisinopril. Cr now 1.[address] Carpio Subjective Subjective S/P Right sided thoracentesis ( 1.2 liters of serosanguineous fluid ) on 05/21/20. On 100% NRB face Mask. Alert in NAD. In SR Had Left thoracentesis yesterday Objective Last 24 Hour Vital Signs Date Time Temp Pulse Resp B/P (MAP) Pulse Ox O2 Delivery O2 Flow Rate FiO2 05/27/20 12:07 Bi-pap 05/27/20 12:00 15.0 100 05/27/20 12:00 97.3 112 24 139/77 (97) 94 05/27/20 11:43 115 05/27/20 08:00 Bi-pap 05/27/20 08:00 15.0 100 05/27/20 08:00 97.3 108 24 156/77 (103) 95 05/27/20 07:43 114 05/27/20 07:07 94 Non-Rebreather 15.0 100 05/27/20 07:07 113 20 94 Non-Rebreather 15.0 100 05/27/20 04:00 97.6 108 24 134/74 (94) 94 05/27/20 04:00 15.0 100 05/27/20 04:00 112 05/27/20 04:00 Bi-pap 05/27/20 02:30 15.0 100 05/27/20 00:01 113 39 95 100 05/27/20 00:00 80 05/27/20 00:00 Bi-pap 05/27/20 00:00 114 05/27/20 00:00 97.9 111 24 147/78 (101) 96 05/26/20 20:00 15.0 100 05/26/20 20:00 98.2 110 24 151/82 (105) 94 05/26/20 20:00 113 05/26/20 20:00 Non-Rebreather 15.0 05/26/20 19:16 93 Non-Rebreather 15.0 100 05/26/20 19:15 110 20 93 Non-Rebreather 15.0 100 Intake and Output 05/26/20 05/27/20 19:00 07:00 Intake Total 390 ml 310 ml Output Total 300 ml 380 ml Balance 90 ml -70 ml Intake Oral 390 ml 310 ml Output Urine Total 300 ml 380 ml # Bowel Movements 4 Laboratory Tests Test 05/27/20 07:45 White Blood Count 10.0 K/UL (4.8-10.8) Red Blood Count 4.49 M/UL (4.20-5.40) Hemoglobin 13.1 G/DL (12.0-16.0) Hematocrit 38.8 % (37.0-47.0) Mean Corpuscular Volume 87 FL (80-99) Mean Corpuscular Hemoglobin 29.2 PG (27.0-31.0) Mean Corpuscular Hemoglobin Concent 33.8 G/DL (32.0-36.0) Red Cell Distribution Width 13.8 % (11.6-14.8) Platelet Count 379 K/UL (150-450) Mean Platelet Volume 5.8 FL (6.5-10.1) L Neutrophils (%) (Auto) 84.6 % (45.0-75.0) H Lymphocytes (%) (Auto) 4.8 % (20.0-45.0) L Monocytes (%) (Auto) 8.1 % (1.0-10.0) Eosinophils (%) (Auto) 1.4 % (0.0-3.0) Basophils (%) (Auto) 1.2 % (0.0-2.0) Objective HEAD AND NECK: No JVD. On Venturi Mask LUNGS: Decreased breath sounds. CARDIOVASCULAR: Regular S1 and S2 and tachycardic. ABDOMEN: Soft. EXTREMITIES: No pitting edema. Cristian England MD May 27, 2020 16:08
--- NOTE | 2020-05-27 16:29 | Nephrology Progress Note ---
Assessment/Plan Problem List: (1) ASHLEY (acute kidney injury) (2) Bilateral pleural effusion (3) Leukemia Assessment Imp: Acute renal failure, with sudden jump in serum creatinine to 2.7 History of leukemia Hypertension, now hypotensive Hyponatremia on admission, improved Bilateral pleural effusion. Status post paracentesis. Elevated troponin, most likely leak. Plan May 27: When seen the patient was on 100% nonrebreather mask. Renal panel within normal limit. Continue per consultants. Main problem remains respiratory. May 26: Renal parameters stable. Started on Lasix 40 mg daily. Continue to monitor renal parameters and electrolytes. Continue per consultants. May 25: Renal parameters within normal limit. Another dose of IV Lasix given. Continue to monitor electrolytes. Continue per consultants. May 24: Renal parameters normalized. Will give the Lasix 40 mg IV once. 1 dose of Kayexalate for hyperkalemia. Continue to monitor renal parameters. Previously: Today renal parameters are improved. Serum creatinine down to 1.6 from 2.7 Continue to hold lisinopril Continue to hold Lasix Half Normal saline 100 cc an hour one liter only was given yesterday Albumin bolus given yesterday, repeat as needed Monitor renal parameters Avoid nephrotoxic's Subjective ROS Limited/Unobtainable: No Constitutional: Reports: malaise, weakness Objective Objective Last 24 Hour Vital Signs Date Time Temp Pulse Resp B/P (MAP) Pulse Ox O2 Delivery O2 Flow Rate FiO2 05/27/20 16:10 15.0 100 05/27/20 16:10 Bi-pap 05/27/20 12:07 Bi-pap 05/27/20 12:00 15.0 100 05/27/20 12:00 97.3 112 24 139/77 (97) 94 05/27/20 11:43 115 05/27/20 08:00 Bi-pap 05/27/20 08:00 15.0 100 05/27/20 08:00 97.3 108 24 156/77 (103) 95 05/27/20 07:43 114 05/27/20 07:07 94 Non-Rebreather 15.0 100 05/27/20 07:07 113 20 94 Non-Rebreather 15.0 100 05/27/20 04:00 97.6 108 24 134/74 (94) 94 05/27/20 04:00 15.0 100 05/27/20 04:00 112 05/27/20 04:00 Bi-pap 05/27/20 02:30 15.0 100 05/27/20 00:01 113 39 95 100 05/27/20 00:00 80 05/27/20 00:00 Bi-pap 05/27/20 00:00 114 05/27/20 00:00 97.9 111 24 147/78 (101) 96 05/26/20 20:00 15.0 100 05/26/20 20:00 98.2 110 24 151/82 (105) 94 05/26/20 20:00 113 05/26/20 20:00 Non-Rebreather 15.0 05/26/20 19:16 93 Non-Rebreather 15.0 100 05/26/20 19:15 110 20 93 Non-Rebreather 15.0 100 Intake and Output 05/26/20 05/27/20 18:59 06:59 Intake Total 390 ml 310 ml Output Total 300 ml 380 ml Balance 90 ml -70 ml Intake Oral 390 ml 310 ml Output Urine Total 300 ml 380 ml # Bowel Movements 4 No chemistry panel done today laboratory Tests 05/27/20 07:45: White Blood Count 10.0, Red Blood Count 4.49, Hemoglobin 13.1, Hematocrit 38.8, Mean Corpuscular Volume 87, Mean Corpuscular Hemoglobin 29.2, Mean Corpuscular Hemoglobin Concent 33.8, Red Cell Distribution Width 13.8, Platelet Count 379, Mean Platelet Volume 5.8L, Neutrophils (%) (Auto) 84.6H, Lymphocytes (%) (Auto) 4.8L, Monocytes (%) (Auto) 8.1, Eosinophils (%) (Auto) 1.4, Basophils (%) (Auto) 1.2 Height (Feet): 5 Height (Inches): 0.00 Weight (Pounds): 100 General Appearance: no apparent distress EENT: other - On nonrebreather mask Cardiovascular: tachycardia Respiratory/Chest: decreased breath sounds Abdomen: distended Montrell Caprio MD May 27, 2020 16:29
--- NOTE | 2020-05-27 17:29 | Pulmonology Progress Note ---
Subjective ROS Limited/Unobtainable: No Constitutional: Reports: no symptoms, other - feels better HEENT: Repors: no symptoms Respiratory: Reports: dry cough Gastrointestinal/Abdominal: Reports: no symptoms Genitourinary: Reports: no symptoms Musculoskeletal: Denies: pain Allergies: Coded Allergies: No Known Allergies (Unverified , 05/19/20) Subjective care noted still on 100% oxygen Objective Last 24 Hour Vital Signs Date Time Temp Pulse Resp B/P (MAP) Pulse Ox O2 Delivery O2 Flow Rate FiO2 05/27/20 16:10 15.0 100 05/27/20 16:10 Bi-pap 05/27/20 16:00 97.5 105 24 104/58 (73) 99 05/27/20 12:07 Bi-pap 05/27/20 12:00 15.0 100 05/27/20 12:00 97.3 112 24 139/77 (97) 94 05/27/20 11:43 115 05/27/20 08:00 Bi-pap 05/27/20 08:00 15.0 100 05/27/20 08:00 97.3 108 24 156/77 (103) 95 05/27/20 07:43 114 05/27/20 07:07 94 Non-Rebreather 15.0 100 05/27/20 07:07 113 20 94 Non-Rebreather 15.0 100 05/27/20 04:00 97.6 108 24 134/74 (94) 94 05/27/20 04:00 15.0 100 05/27/20 04:00 112 05/27/20 04:00 Bi-pap 05/27/20 02:30 15.0 100 05/27/20 00:01 113 39 95 100 05/27/20 00:00 80 05/27/20 00:00 Bi-pap 05/27/20 00:00 114 05/27/20 00:00 97.9 111 24 147/78 (101) 96 05/26/20 20:00 15.0 100 05/26/20 20:00 98.2 110 24 151/82 (105) 94 05/26/20 20:00 113 05/26/20 20:00 Non-Rebreather 15.0 05/26/20 19:16 93 Non-Rebreather 15.0 100 05/26/20 19:15 110 20 93 Non-Rebreather 15.0 100 Intake and Output 05/26/20 05/27/20 19:00 07:00 Intake Total 390 ml 310 ml Output Total 300 ml 380 ml Balance 90 ml -70 ml Intake Oral 390 ml 310 ml Output Urine Total 300 ml 380 ml # Bowel Movements 4 General Appearance: no acute distress Respiratory: chest wall non-tender, normal breath sounds, no respiratory distress, no accessory muscle use Cardiovascular: normal peripheral pulses, normal rate Abdomen: normal bowel sounds Extremities: no cyanosis, no clubbing, no edema Laboratory Tests 05/27/20 07:45: White Blood Count 10.0, Red Blood Count 4.49, Hemoglobin 13.1, Hematocrit 38.8, Mean Corpuscular Volume 87, Mean Corpuscular Hemoglobin 29.2, Mean Corpuscular Hemoglobin Concent 33.8, Red Cell Distribution Width 13.8, Platelet Count 379, Mean Platelet Volume 5.8L, Neutrophils (%) (Auto) 84.6H, Lymphocytes (%) (Auto) 4.8L, Monocytes (%) (Auto) 8.1, Eosinophils (%) (Auto) 1.4, Basophils (%) (Auto) 1.2 Current Medications Medications (Trade) Dose Ordered Sig/Jennie Route PRN Reason Start Time Stop Time Status Last Admin Dose Admin Acetaminophen (Tylenol) 500 mg Q6H PRN ORAL Mild Pain (Pain Scale 1-3) 05/19/20 16:45 06/18/20 16:44 Albuterol/ Ipratropium (Albuterol/ Ipratropium) 3 ml Q4HRT PRN HHN Shortness of Breath 05/25/20 20:15 05/30/20 20:14 05/25/20 20:25 Clonidine HCl (Catapres Tab) 0.1 mg Q4H PRN ORAL SBP > 170 05/24/20 13:15 08/22/20 13:14 Docusate Sodium (Colace) 100 mg TWICE A DAY ORAL 05/22/20 18:00 06/21/20 17:59 05/27/20 17:25 Furosemide (Lasix) 40 mg DAILY ORAL 05/27/20 09:00 06/26/20 08:59 05/27/20 08:39 Pantoprazole (Protonix) 40 mg Q12HR ORAL 05/22/20 21:00 06/21/20 20:59 05/27/20 08:39 Assessment/Plan Assessment/Plan IMPRESSION: 1. History of CML, on dasatinib. 2. Possible pneumonia. 3. Large pleural effusion, s/p thoracentesis. 4. Hypertension. 5. Elevated D-dimer 6. Hypoxemic respiratory failure DISCUSSION: S/p R thoracentesis, improved after tap x 2 monitor off BiPAP taper oxygen as able; now improved broad-spectrum antibiotics. Cardiology following may need PlueRX if fluid recurs oxygen at high flow and concern for respiratory failure and need for intubation repeat CXR and ABG noted still full code and may need ICU will update family impression, plan, and exam edited and reviewed in detail care discussed with Ifeanyi Rosas MD May 27, 2020 17:29
[2020-05-27 20:00] VITALS: BP 102/62
--- NOTE | 2020-05-27 21:22 | General Progress Note ---
Subjective ROS Limited/Unobtainable: Yes Allergies: Coded Allergies: No Known Allergies (Unverified , 05/19/20) Objective Last 24 Hour Vital Signs Date Time Temp Pulse Resp B/P (MAP) Pulse Ox O2 Delivery O2 Flow Rate FiO2 05/27/20 16:10 15.0 100 05/27/20 16:10 Bi-pap 05/27/20 16:00 97.5 105 24 104/58 (73) 99 05/27/20 15:24 98 05/27/20 12:07 Bi-pap 05/27/20 12:00 15.0 100 05/27/20 12:00 97.3 112 24 139/77 (97) 94 05/27/20 11:43 115 05/27/20 08:00 Bi-pap 05/27/20 08:00 15.0 100 05/27/20 08:00 97.3 108 24 156/77 (103) 95 05/27/20 07:43 114 05/27/20 07:07 94 Non-Rebreather 15.0 100 05/27/20 07:07 113 20 94 Non-Rebreather 15.0 100 05/27/20 04:00 97.6 108 24 134/74 (94) 94 05/27/20 04:00 15.0 100 05/27/20 04:00 112 05/27/20 04:00 Bi-pap 05/27/20 02:30 15.0 100 05/27/20 00:01 113 39 95 100 05/27/20 00:00 80 05/27/20 00:00 Bi-pap 05/27/20 00:00 114 05/27/20 00:00 97.9 111 24 147/78 (101) 96 Intake and Output 05/26/20 05/27/20 18:59 06:59 Intake Total 390 ml 310 ml Output Total 300 ml 380 ml Balance 90 ml -70 ml Intake Oral 390 ml 310 ml Output Urine Total 300 ml 380 ml # Bowel Movements 4 Laboratory Tests 05/27/20 07:45: White Blood Count 10.0, Red Blood Count 4.49, Hemoglobin 13.1, Hematocrit 38.8, Mean Corpuscular Volume 87, Mean Corpuscular Hemoglobin 29.2, Mean Corpuscular Hemoglobin Concent 33.8, Red Cell Distribution Width 13.8, Platelet Count 379, Mean Platelet Volume 5.8L, Neutrophils (%) (Auto) 84.6H, Lymphocytes (%) (Auto) 4.8L, Monocytes (%) (Auto) 8.1, Eosinophils (%) (Auto) 1.4, Basophils (%) (Auto) 1.2 Height (Feet): 5 Height (Inches): 0.00 Weight (Pounds): 100 Assessment/Plan Problem List: (1) Leukemia ICD Codes: C95.90 - Leukemia, unspecified not having achieved remission SNOMED: 62975033 (2) Bilateral pleural effusion ICD Codes: J90 - Pleural effusion, not elsewhere classified SNOMED: 741279232 Status: progressing Assessment/Plan: afebrile check lytes no wheezing s/p thoracocenesis leukemia bilat pleural effusion improving Tiara Jara MD May 27, 2020 21:22
--- NOTE | 2020-05-27 22:29 | General Progress Note ---
Subjective Allergies: Coded Allergies: No Known Allergies (Unverified , 05/19/20) Subjective above noted on po diet tolerating well Objective Last 24 Hour Vital Signs Date Time Temp Pulse Resp B/P (MAP) Pulse Ox O2 Delivery O2 Flow Rate FiO2 05/27/20 20:00 97.7 104 24 102/62 (75) 99 05/27/20 20:00 Non-Rebreather 15.0 05/27/20 20:00 15.0 05/27/20 16:10 15.0 100 05/27/20 16:10 Bi-pap 05/27/20 16:00 97.5 105 24 104/58 (73) 99 05/27/20 15:24 98 05/27/20 12:07 Bi-pap 05/27/20 12:00 15.0 100 05/27/20 12:00 97.3 112 24 139/77 (97) 94 05/27/20 11:43 115 05/27/20 08:00 Bi-pap 05/27/20 08:00 15.0 100 05/27/20 08:00 97.3 108 24 156/77 (103) 95 05/27/20 07:43 114 05/27/20 07:07 94 Non-Rebreather 15.0 100 05/27/20 07:07 113 20 94 Non-Rebreather 15.0 100 05/27/20 04:00 97.6 108 24 134/74 (94) 94 05/27/20 04:00 15.0 100 05/27/20 04:00 112 05/27/20 04:00 Bi-pap 05/27/20 02:30 15.0 100 05/27/20 00:01 113 39 95 100 05/27/20 00:00 80 05/27/20 00:00 Bi-pap 05/27/20 00:00 114 05/27/20 00:00 97.9 111 24 147/78 (101) 96 Intake and Output 05/26/20 05/27/20 19:00 07:00 Intake Total 390 ml 310 ml Output Total 300 ml 380 ml Balance 90 ml -70 ml Intake Oral 390 ml 310 ml Output Urine Total 300 ml 380 ml # Bowel Movements 4 Laboratory Tests 05/27/20 07:45: White Blood Count 10.0, Red Blood Count 4.49, Hemoglobin 13.1, Hematocrit 38.8, Mean Corpuscular Volume 87, Mean Corpuscular Hemoglobin 29.2, Mean Corpuscular Hemoglobin Concent 33.8, Red Cell Distribution Width 13.8, Platelet Count 379, Mean Platelet Volume 5.8L, Neutrophils (%) (Auto) 84.6H, Lymphocytes (%) (Auto) 4.8L, Monocytes (%) (Auto) 8.1, Eosinophils (%) (Auto) 1.4, Basophils (%) (Auto) 1.2 Height (Feet): 5 Height (Inches): 0.00 Weight (Pounds): 100 Objective NCAT supple Coarse BS RR abd soft no edema Assessment/Plan Status: progressing Assessment/Plan: Assessment - Respiratory failure - improving - pleural effusions, s/p thoracentesis - Renal failure - Malnutrition - Elevated troponin - HTN - CML Recommendations - Pulmonary management - careful po diet - follow labs and exam Antonio Ratliff MD May 27, 2020 22:29
[2020-05-28] VITALS: BP 107/67
[2020-05-28 04:00] VITALS: BP 103/65
[2020-05-28 04:56] LABS: BASOPHILS % (AUTO) 0.9 % (0.0-2.0); EOSINOPHILS % (AUTO) 3.7 % (0.0-3.0); HEMATOCRIT 39.2 % (37.0-47.0); HEMOGLOBIN 12.9 G/DL (12.0-16.0); LYMPHOCYTES % (AUTO) 8.4 % (20.0-45.0); MEAN CORPUSCULAR VOLUME 86 FL (80-99); MONOCYTES % (AUTO) 10.6 % (1.0-10.0); NEUTROPHILS % (AUTO) 76.4 % (45.0-75.0); PLATELET COUNT 352 K/UL (150-450); RED BLOOD COUNT 4.55 M/UL (4.20-5.40); RED CELL DISTRIBUTION WIDTH 14.3 % (11.6-14.8); WHITE BLOOD COUNT 9.3 K/UL (4.8-10.8)
[2020-05-28 05:24] LABS: ALBUMIN 2.1 G/DL (3.4-5.0); ALBUMIN/GLOBULIN RATIO 0.6 (1.0-2.7); BILIRUBIN,TOTAL 0.3 MG/DL (0.2-1.0); CALCIUM 9.3 MG/DL (8.5-10.1); CREATININE 1.5 MG/DL (0.55-1.30); PHOSPHORUS 4.1 MG/DL (2.5-4.9); POTASSIUM 4.5 MMOL/L (3.5-5.1)
--- NOTE | 2020-05-28 06:39 | Hematology/Onc Progress Note ---
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, sees oncologist in [facility] [place] --> at this time STOP desatanib (also is the likely cause of pleural effusions) --> no is s/p thora per pulm/cards --> wbc trend 18->7 --> hgb 11.5 --> ABX ceftriaxone --> bipap, thora prn --> needs molecular and cytogenectic response for CML, f/u oncologist outpatient # Bilateral pleural effusion --> as per pulm, is on bipap --> thora as needed # HTN --> hydralazine and lisinopril --> sbp goal <140 # Dehydration --> goal of euvolemia # Elevated ddimer --> duplex lower ext r/o dvt==>neg # Dvt ppx lovenox sq Appreciate consultation and zachariah RN Subjective HEENT: Denies: no symptoms, eye pain, blurred vision, tearing, double vision, ear pain, ear discharge, nose pain, nose congestion, throat pain, throat swelling, mouth pain, mouth swelling, other Cardiovascular: Denies: no symptoms, chest pain, edema, irregular heart rate, lightheadedness, palpitations, syncope, other Respiratory: Denies: no symptoms, cough, shortness of breath, SOB with excertion, SOB at rest, sputum, wheezing, other Gastrointestinal/Abdominal: Denies: no symptoms, abdomen distended, abdominal pain, black stools, tarry stools, blood in stool, constipated, diarrhea, difficulty swallowing, nausea, poor appetite, poor fluid intake, rectal bleeding, vomiting, other Genitourinary: Denies: no symptoms, burning, discharge, frequency, flank pain, hematuria, incontinence, pain, urgency, other Neurologic/Psychiatric: Denies: no symptoms, anxiety, depressed, emotional problems, headache, numbness, paresthesia, pre-existing deficit, seizure, tingling, tremors, weakness, other Endocrine: Denies: no symptoms, excessive sweating, flushing, intolerance to cold, intolerance to heat, increased hunger, increased thirst, increased urine, unexplained weight gain, unexplained weight loss, other Hematologic/Lymphatic: Denies: no symptoms, anemia, easy bleeding, easy bruising, adenopathy, other Allergies: Coded Allergies: No Known Allergies (Unverified , 05/19/20) Subjective 05/21 labs are noted, no bleeding, with pleural effusions due to desatanbib, s/p thora 05/22 labs are noted, no bleeding, on bipap, i dw her today to stop her med at once 05/24 wbc is improved, continue on ctx for one more day per id, bipap 05/26 have ordered for repeat cxr this am to reeval pleural effusions, labs noted 05/27 with b/l pleural effusions, aware from pulm, thora prn 05/28 has been refusing scds, thus will start lovenox today, breathing better s/p thora Objective Objective Current Medications Medications (Trade) Dose Ordered Sig/Jennie Route PRN Reason Start Time Stop Time Status Last Admin Dose Admin Acetaminophen (Tylenol) 500 mg Q6H PRN ORAL Mild Pain (Pain Scale 1-3) 05/19/20 16:45 06/18/20 16:44 Albuterol/ Ipratropium (Albuterol/ Ipratropium) 3 ml Q4HRT PRN HHN Shortness of Breath 05/25/20 20:15 05/30/20 20:14 05/25/20 20:25 Clonidine HCl (Catapres Tab) 0.1 mg Q4H PRN ORAL SBP > 170 05/24/20 13:15 08/22/20 13:14 Docusate Sodium (Colace) 100 mg TWICE A DAY ORAL 05/22/20 18:00 06/21/20 17:59 05/27/20 17:25 Furosemide (Lasix) 40 mg DAILY ORAL 05/27/20 09:00 06/26/20 08:59 05/27/20 08:39 Pantoprazole (Protonix) 40 mg Q12HR ORAL 05/22/20 21:00 06/21/20 20:59 05/27/20 20:47 Last 24 Hour Vital Signs Date Time Temp Pulse Resp B/P (MAP) Pulse Ox O2 Delivery O2 Flow Rate FiO2 05/28/20 04:00 Non-Rebreather 15.0 05/28/20 04:00 15.0 05/28/20 04:00 103 05/28/20 04:00 97.7 103 24 103/65 (78) 98 05/28/20 00:00 15.0 05/28/20 00:00 102 05/28/20 00:00 Non-Rebreather 15.0 05/28/20 00:00 97.7 106 24 107/67 (80) 98 05/27/20 20:00 97.7 104 24 102/62 (75) 99 05/27/20 20:00 Non-Rebreather 15.0 05/27/20 20:00 99 05/27/20 20:00 15.0 05/27/20 16:10 15.0 100 05/27/20 16:10 Bi-pap 05/27/20 16:00 97.5 105 24 104/58 (73) 99 05/27/20 15:24 98 05/27/20 12:07 Bi-pap 05/27/20 12:00 15.0 100 05/27/20 12:00 97.3 112 24 139/77 (97) 94 05/27/20 11:43 115 05/27/20 08:00 Bi-pap 05/27/20 08:00 15.0 100 05/27/20 08:00 97.3 108 24 156/77 (103) 95 05/27/20 07:43 114 05/27/20 07:07 94 Non-Rebreather 15.0 100 05/27/20 07:07 113 20 94 Non-Rebreather 15.0 100 05/27/20 04:00 97.6 108 24 134/74 (94) 94 05/27/20 04:00 15.0 100 05/27/20 04:00 112 05/27/20 04:00 Bi-pap 05/27/20 02:30 15.0 100 05/27/20 00:01 113 39 95 100 05/27/20 00:00 80 05/27/20 00:00 Bi-pap 05/27/20 00:00 114 05/27/20 00:00 97.9 111 24 147/78 (101) 96 05/26/20 20:00 15.0 100 05/26/20 20:00 98.2 110 24 151/82 (105) 94 05/26/20 20:00 113 05/26/20 20:00 Non-Rebreather 15.0 05/26/20 19:16 93 Non-Rebreather 15.0 100 05/26/20 19:15 110 20 93 Non-Rebreather 15.0 100 05/26/20 16:00 113 05/26/20 16:00 Non-Rebreather 15.0 05/26/20 16:00 15.0 100 05/26/20 15:28 97.5 111 18 140/85 (103) 94 05/26/20 12:00 97.5 105 18 136/95 (109) 93 05/26/20 12:00 15.0 100 05/26/20 12:00 108 05/26/20 12:00 Non-Rebreather 15.0 05/26/20 08:00 96.8 111 18 136/62 (86) 91 05/26/20 08:00 15.0 100 05/26/20 08:00 Non-Rebreather 15.0 05/26/20 08:00 117 05/26/20 07:00 109 24 92 Non-Rebreather 15.0 100 Intake and Output 05/27/20 05/28/20 19:00 07:00 Intake Total 500 ml 240 ml Output Total 250 ml 360 ml Balance 250 ml -120 ml Intake Oral 500 ml 240 ml Output Urine Total 250 ml 360 ml # Bowel Movements 1 Labs Test 05/26/20 03:05 05/27/20 07:45 05/28/20 03:15 White Blood Count 8.2 K/UL (4.8-10.8) 10.0 K/UL (4.8-10.8) 9.3 K/UL (4.8-10.8) Red Blood Count 4.69 M/UL (4.20-5.40) 4.49 M/UL (4.20-5.40) 4.55 M/UL (4.20-5.40) Hemoglobin 13.5 G/DL (12.0-16.0) 13.1 G/DL (12.0-16.0) 12.9 G/DL (12.0-16.0) Hematocrit 40.8 % (37.0-47.0) 38.8 % (37.0-47.0) 39.2 % (37.0-47.0) Mean Corpuscular Volume 87 FL (80-99) 87 FL (80-99) 86 FL (80-99) Mean Corpuscular Hemoglobin 28.7 PG (27.0-31.0) 29.2 PG (27.0-31.0) 28.4 PG (27.0-31.0) Mean Corpuscular Hemoglobin Concent 33.1 G/DL (32.0-36.0) 33.8 G/DL (32.0-36.0) 33.0 G/DL (32.0-36.0) Red Cell Distribution Width 14.1 % (11.6-14.8) 13.8 % (11.6-14.8) 14.3 % (11.6-14.8) Platelet Count 334 K/UL (150-450) 379 K/UL (150-450) 352 K/UL (150-450) Mean Platelet Volume 5.5 FL (6.5-10.1) 5.8 FL (6.5-10.1) 5.7 FL (6.5-10.1) Neutrophils (%) (Auto) 81.7 % (45.0-75.0) 84.6 % (45.0-75.0) 76.4 % (45.0-75.0) Lymphocytes (%) (Auto) 7.9 % (20.0-45.0) 4.8 % (20.0-45.0) 8.4 % (20.0-45.0) Monocytes (%) (Auto) 8.5 % (1.0-10.0) 8.1 % (1.0-10.0) 10.6 % (1.0-10.0) Eosinophils (%) (Auto) 1.4 % (0.0-3.0) 1.4 % (0.0-3.0) 3.7 % (0.0-3.0) Basophils (%) (Auto) 0.5 % (0.0-2.0) 1.2 % (0.0-2.0) 0.9 % (0.0-2.0) Sodium Level 135 MMOL/L (136-145) 135 MMOL/L (136-145) Potassium Level 3.9 MMOL/L (3.5-5.1) 4.5 MMOL/L (3.5-5.1) Chloride Level 97 MMOL/L (98-107) 100 MMOL/L (98-107) Carbon Dioxide Level 29 MMOL/L (21-32) 30 MMOL/L (21-32) Anion Gap 9 mmol/L (5-15) 5 mmol/L (5-15) Blood Urea Nitrogen 39 mg/dL (7-18) 62 mg/dL (7-18) Creatinine 1.2 MG/DL (0.55-1.30) 1.5 MG/DL (0.55-1.30) Estimat Glomerular Filtration Rate 45.7 mL/min (>60) 35.3 mL/min (>60) Glucose Level 167 MG/DL (74-106) 174 MG/DL (74-106) Uric Acid 6.1 MG/DL (2.6-7.2) Calcium Level 9.0 MG/DL (8.5-10.1) 9.3 MG/DL (8.5-10.1) Phosphorus Level 3.4 MG/DL (2.5-4.9) 4.1 MG/DL (2.5-4.9) Magnesium Level 2.1 MG/DL (1.8-2.4) 2.2 MG/DL (1.8-2.4) Total Bilirubin 0.3 MG/DL (0.2-1.0) 0.3 MG/DL (0.2-1.0) Aspartate Amino Transf (AST/SGOT) 20 U/L (15-37) 19 U/L (15-37) Alanine Aminotransferase (ALT/SGPT) 16 U/L (12-78) 15 U/L (12-78) Alkaline Phosphatase 66 U/L (46-116) 49 U/L (46-116) C-Reactive Protein, Quantitative 22.8 mg/dL (0.00-0.90) Total Protein 6.8 G/DL (6.4-8.2) 5.7 G/DL (6.4-8.2) Albumin 2.5 G/DL (3.4-5.0) 2.1 G/DL (3.4-5.0) Globulin 4.3 g/dL 3.6 g/dL Albumin/Globulin Ratio 0.6 (1.0-2.7) 0.6 (1.0-2.7) Height (Feet): 5 Height (Inches): 0.00 Weight (Pounds): 100 Dionicio Higgins MD May 28, 2020 06:39
[2020-05-28 08:00] VITALS: BP 98/70
[2020-05-28] MEDS: Docusate 100mg cap ORAL SCH ×2 (08:51→17:52)
[2020-05-28] MEDS: Furosemide 40mg tab ORAL SCH (08:52)
[2020-05-28] MEDS: Enoxaparin 30mg Inj SUBQ SCH (08:53)
--- NOTE | 2020-05-28 09:11 | Nephrology Progress Note ---
Assessment/Plan Problem List: (1) ASHLEY (acute kidney injury) (2) Bilateral pleural effusion (3) Leukemia Assessment Imp: Acute renal failure, with sudden jump in serum creatinine to 2.7 History of leukemia Hypertension, now hypotensive Hyponatremia on admission, improved Bilateral pleural effusion. Status post paracentesis. Elevated troponin, most likely leak. Plan May 28: Serum creatinine up to 1.5. Remains on nonrebreather mask. Since admission had 3 thoracenteses for pleural effusion over the left and right. Respiratory status remains unstable. Continue per pulmonary. Will watch renal parameters. May 27: When seen the patient was on 100% nonrebreather mask. Renal panel within normal limit. Continue per consultants. Main problem remains respiratory. May 26: Renal parameters stable. Started on Lasix 40 mg daily. Continue to monitor renal parameters and electrolytes. Continue per consultants. May 25: Renal parameters within normal limit. Another dose of IV Lasix given. Continue to monitor electrolytes. Continue per consultants. May 24: Renal parameters normalized. Will give the Lasix 40 mg IV once. 1 dose of Kayexalate for hyperkalemia. Continue to monitor renal parameters. Previously: Today renal parameters are improved. Serum creatinine down to 1.6 from 2.7 Continue to hold lisinopril Continue to hold Lasix Half Normal saline 100 cc an hour one liter only was given yesterday Albumin bolus given yesterday, repeat as needed Monitor renal parameters Avoid nephrotoxic's Subjective ROS Limited/Unobtainable: No Constitutional: Reports: malaise Objective Objective Last 24 Hour Vital Signs Date Time Temp Pulse Resp B/P (MAP) Pulse Ox O2 Delivery O2 Flow Rate FiO2 05/28/20 08:00 15.0 05/28/20 08:00 96.4 116 24 98/70 (79) 94 05/28/20 08:00 Non-Rebreather 15.0 05/28/20 04:00 Non-Rebreather 15.0 05/28/20 04:00 15.0 05/28/20 04:00 103 05/28/20 04:00 97.7 103 24 103/65 (78) 98 05/28/20 00:00 15.0 05/28/20 00:00 102 05/28/20 00:00 Non-Rebreather 15.0 05/28/20 00:00 97.7 106 24 107/67 (80) 98 05/27/20 20:00 97.7 104 24 102/62 (75) 99 05/27/20 20:00 Non-Rebreather 15.0 05/27/20 20:00 99 05/27/20 20:00 15.0 05/27/20 16:10 15.0 100 05/27/20 16:10 Bi-pap 05/27/20 16:00 97.5 105 24 104/58 (73) 99 05/27/20 15:24 98 05/27/20 12:07 Bi-pap 05/27/20 12:00 15.0 100 05/27/20 12:00 97.3 112 24 139/77 (97) 94 05/27/20 11:43 115 Intake and Output 05/27/20 05/28/20 19:00 07:00 Intake Total 500 ml 240 ml Output Total 250 ml 360 ml Balance 250 ml -120 ml Intake Oral 500 ml 240 ml Output Urine Total 250 ml 360 ml # Bowel Movements 1 Laboratory Tests 05/28/20 03:15: White Blood Count 9.3, Red Blood Count 4.55, Hemoglobin 12.9, Hematocrit 39.2, Mean Corpuscular Volume 86, Mean Corpuscular Hemoglobin 28.4, Mean Corpuscular Hemoglobin Concent 33.0, Red Cell Distribution Width 14.3, Platelet Count 352, Mean Platelet Volume 5.7L, Neutrophils (%) (Auto) 76.4H, Lymphocytes (%) (Auto) 8.4L, Monocytes (%) (Auto) 10.6H, Eosinophils (%) (Auto) 3.7H, Basophils (%) (Auto) 0.9, Sodium Level 135L, Potassium Level 4.5, Chloride Level 100, Carbon Dioxide Level 30, Anion Gap 5, Blood Urea Nitrogen 62H, Creatinine 1.5H, Estimat Glomerular Filtration Rate 35.3, Glucose Level 174H, Calcium Level 9.3, Phosphorus Level 4.1, Magnesium Level 2.2, Total Bilirubin 0.3, Aspartate Amino Transf (AST/SGOT) 19, Alanine Aminotransferase (ALT/SGPT) 15, Alkaline Phosphatase 49, Total Protein 5.7L, Albumin 2.1L, Globulin 3.6, Albumin/Globulin Ratio 0.6L Height (Feet): 5 Height (Inches): 0.00 Weight (Pounds): 100 General Appearance: mild distress EENT: other - On nonrebreather mask Cardiovascular: tachycardia Respiratory/Chest: decreased breath sounds Abdomen: soft, distended Montrell Carpio MD May 28, 2020 09:11
--- NOTE | 2020-05-28 11:04 | Infectious Diseases Prog Note ---
Assessment/Plan Assessment/Plan IMPRESSION: Leukocytosis, resolved systemic inflammatory response syndrome or sepsis, Recurrent pleural effusion, CML, Accelerated hypertension, Elevation of troponin. Hypoxemia RECOMMENDATION: Observe off antibiotic Subjective ROS Limited/Unobtainable: No Constitutional: Reports: no symptoms Respiratory: Reports: shortness of breath, other - had thoracentesis yesterday, 1500 cc removed Cardiovascular: Reports: no symptoms Gastrointestinal/Abdominal: Reports: no symptoms Allergies: Coded Allergies: No Known Allergies (Unverified , 05/19/20) Objective Last 24 Hour Vital Signs Date Time Temp Pulse Resp B/P (MAP) Pulse Ox O2 Delivery O2 Flow Rate FiO2 05/28/20 08:00 15.0 05/28/20 08:00 96.4 116 24 98/70 (79) 94 05/28/20 08:00 113 05/28/20 08:00 Non-Rebreather 15.0 05/28/20 04:00 Non-Rebreather 15.0 05/28/20 04:00 15.0 05/28/20 04:00 103 05/28/20 04:00 97.7 103 24 103/65 (78) 98 05/28/20 00:00 15.0 05/28/20 00:00 102 05/28/20 00:00 Non-Rebreather 15.0 05/28/20 00:00 97.7 106 24 107/67 (80) 98 05/27/20 20:00 97.7 104 24 102/62 (75) 99 05/27/20 20:00 Non-Rebreather 15.0 05/27/20 20:00 99 05/27/20 20:00 15.0 05/27/20 16:10 15.0 100 05/27/20 16:10 Bi-pap 05/27/20 16:00 97.5 105 24 104/58 (73) 99 05/27/20 15:24 98 05/27/20 12:07 Bi-pap 05/27/20 12:00 15.0 100 05/27/20 12:00 97.3 112 24 139/77 (97) 94 05/27/20 11:43 115 Height (Feet): 5 Height (Inches): 0.00 Weight (Pounds): 100 HEENT: mucous membranes moist Respiratory/Chest: lungs clear, other - oxygen by rebreathing mask Cardiovascular: tachycardia Abdomen: normal bowel sounds Extremities: no edema Neurologic/Psychiatric: alert, responsive Laboratory Tests Test 05/28/20 03:15 White Blood Count 9.3 K/UL (4.8-10.8) Red Blood Count 4.55 M/UL (4.20-5.40) Hemoglobin 12.9 G/DL (12.0-16.0) Hematocrit 39.2 % (37.0-47.0) Mean Corpuscular Volume 86 FL (80-99) Mean Corpuscular Hemoglobin 28.4 PG (27.0-31.0) Mean Corpuscular Hemoglobin Concent 33.0 G/DL (32.0-36.0) Red Cell Distribution Width 14.3 % (11.6-14.8) Platelet Count 352 K/UL (150-450) Mean Platelet Volume 5.7 FL (6.5-10.1) L Neutrophils (%) (Auto) 76.4 % (45.0-75.0) H Lymphocytes (%) (Auto) 8.4 % (20.0-45.0) L Monocytes (%) (Auto) 10.6 % (1.0-10.0) H Eosinophils (%) (Auto) 3.7 % (0.0-3.0) H Basophils (%) (Auto) 0.9 % (0.0-2.0) Sodium Level 135 MMOL/L (136-145) L Potassium Level 4.5 MMOL/L (3.5-5.1) Chloride Level 100 MMOL/L (98-107) Carbon Dioxide Level 30 MMOL/L (21-32) Anion Gap 5 mmol/L (5-15) Blood Urea Nitrogen 62 mg/dL (7-18) H Creatinine 1.5 MG/DL (0.55-1.30) H Estimat Glomerular Filtration Rate 35.3 mL/min (>60) Glucose Level 174 MG/DL (74-106) H Calcium Level 9.3 MG/DL (8.5-10.1) Phosphorus Level 4.1 MG/DL (2.5-4.9) Magnesium Level 2.2 MG/DL (1.8-2.4) Total Bilirubin 0.3 MG/DL (0.2-1.0) Aspartate Amino Transf (AST/SGOT) 19 U/L (15-37) Alanine Aminotransferase (ALT/SGPT) 15 U/L (12-78) Alkaline Phosphatase 49 U/L (46-116) Total Protein 5.7 G/DL (6.4-8.2) L Albumin 2.1 G/DL (3.4-5.0) L Globulin 3.6 g/dL Albumin/Globulin Ratio 0.6 (1.0-2.7) L Current Medications Medications (Trade) Dose Ordered Sig/Jennie Route PRN Reason Start Time Stop Time Status Last Admin Dose Admin Acetaminophen (Tylenol) 500 mg Q6H PRN ORAL Mild Pain (Pain Scale 1-3) 05/19/20 16:45 06/18/20 16:44 Albuterol/ Ipratropium (Albuterol/ Ipratropium) 3 ml Q4HRT PRN HHN Shortness of Breath 05/25/20 20:15 05/30/20 20:14 05/25/20 20:25 Clonidine HCl (Catapres Tab) 0.1 mg Q4H PRN ORAL SBP > 170 05/24/20 13:15 08/22/20 13:14 Docusate Sodium (Colace) 100 mg TWICE A DAY ORAL 05/22/20 18:00 06/21/20 17:59 05/28/20 08:51 Enoxaparin Sodium (Lovenox) 30 mg DAILY SUBQ 05/28/20 09:00 08/26/20 08:59 05/28/20 08:53 Furosemide (Lasix) 40 mg DAILY ORAL 05/27/20 09:00 06/26/20 08:59 05/28/20 08:52 Pantoprazole (Protonix) 40 mg Q12HR ORAL 05/22/20 21:00 06/21/20 20:59 05/28/20 08:51 Timothy Pennington MD May 28, 2020 11:04
[2020-05-28] MEDS ORDERED: Tubing IV Secondary IV ONE (11:47)
[2020-05-28] MEDS ORDERED: NS 275ml ONE (11:47)
[2020-05-28 12:00] VITALS: BP 103/50
--- NOTE | 2020-05-28 15:33 | Cardiac Electrophysiology PN ---
Assessment/Plan Assessment/Plan 1. Accelerated hypertension. Now off Lisinopril and Lasix for acute renal failure BP stable off any BP meds. On prn Clonidine 2. Troponin leak. Level low and no CP and likely due to renal failure 3. Bilateral pleural effusions. S/P Right side thoracentesis x 2. FU by Dr. Olson. S/P Left thoracentesis 4. Hyponatremia. 5. CML x 5 years, sees oncologist in [facility] area DCed desatanib (also is the likely cause of pleural effusions) Per Dr Dolan 6. Acute renal failure with sudden JUMP in creatinine to 2.7. FU Dr Carpio. Better after iv fluid, Albumin and off Lasix and Lisinopril. Cr now 1.0 DW RN c Subjective Subjective S/P Right sided thoracentesis ( 1.2 liters of serosanguineous fluid ) on 05/21/20. On 100% NRB face Mask. Alert in NAD. In SR Had Left thoracentesis and again 1.5 liter Right thoracentesis on 06/25/20 Objective Last 24 Hour Vital Signs Date Time Temp Pulse Resp B/P (MAP) Pulse Ox O2 Delivery O2 Flow Rate FiO2 05/28/20 12:00 96.4 104 25 103/50 (67) 98 05/28/20 12:00 102 05/28/20 12:00 15.0 05/28/20 12:00 Non-Rebreather 15.0 05/28/20 08:00 15.0 05/28/20 08:00 96.4 116 24 98/70 (79) 94 05/28/20 08:00 113 05/28/20 08:00 Non-Rebreather 15.0 05/28/20 07:00 116 20 94 Non-Rebreather 15.0 100 05/28/20 07:00 94 Non-Rebreather 15.0 100 05/28/20 04:00 Non-Rebreather 15.0 05/28/20 04:00 15.0 05/28/20 04:00 103 05/28/20 04:00 97.7 103 24 103/65 (78) 98 05/28/20 00:00 15.0 05/28/20 00:00 102 05/28/20 00:00 Non-Rebreather 15.0 05/28/20 00:00 97.7 106 24 107/67 (80) 98 05/27/20 20:00 97.7 104 24 102/62 (75) 99 05/27/20 20:00 Non-Rebreather 15.0 05/27/20 20:00 99 05/27/20 20:00 15.0 05/27/20 16:10 15.0 100 05/27/20 16:10 Bi-pap 05/27/20 16:00 97.5 105 24 104/58 (73) 99 Intake and Output 05/27/20 05/28/20 19:00 07:00 Intake Total 500 ml 240 ml Output Total 250 ml 360 ml Balance 250 ml -120 ml Intake Oral 500 ml 240 ml Output Urine Total 250 ml 360 ml # Bowel Movements 1 Laboratory Tests Test 05/28/20 03:15 White Blood Count 9.3 K/UL (4.8-10.8) Red Blood Count 4.55 M/UL (4.20-5.40) Hemoglobin 12.9 G/DL (12.0-16.0) Hematocrit 39.2 % (37.0-47.0) Mean Corpuscular Volume 86 FL (80-99) Mean Corpuscular Hemoglobin 28.4 PG (27.0-31.0) Mean Corpuscular Hemoglobin Concent 33.0 G/DL (32.0-36.0) Red Cell Distribution Width 14.3 % (11.6-14.8) Platelet Count 352 K/UL (150-450) Mean Platelet Volume 5.7 FL (6.5-10.1) L Neutrophils (%) (Auto) 76.4 % (45.0-75.0) H Lymphocytes (%) (Auto) 8.4 % (20.0-45.0) L Monocytes (%) (Auto) 10.6 % (1.0-10.0) H Eosinophils (%) (Auto) 3.7 % (0.0-3.0) H Basophils (%) (Auto) 0.9 % (0.0-2.0) Sodium Level 135 MMOL/L (136-145) L Potassium Level 4.5 MMOL/L (3.5-5.1) Chloride Level 100 MMOL/L (98-107) Carbon Dioxide Level 30 MMOL/L (21-32) Anion Gap 5 mmol/L (5-15) Blood Urea Nitrogen 62 mg/dL (7-18) H Creatinine 1.5 MG/DL (0.55-1.30) H Estimat Glomerular Filtration Rate 35.3 mL/min (>60) Glucose Level 174 MG/DL (74-106) H Calcium Level 9.3 MG/DL (8.5-10.1) Phosphorus Level 4.1 MG/DL (2.5-4.9) Magnesium Level 2.2 MG/DL (1.8-2.4) Total Bilirubin 0.3 MG/DL (0.2-1.0) Aspartate Amino Transf (AST/SGOT) 19 U/L (15-37) Alanine Aminotransferase (ALT/SGPT) 15 U/L (12-78) Alkaline Phosphatase 49 U/L (46-116) Total Protein 5.7 G/DL (6.4-8.2) L Albumin 2.1 G/DL (3.4-5.0) L Globulin 3.6 g/dL Albumin/Globulin Ratio 0.6 (1.0-2.7) L Objective HEAD AND NECK: No JVD. On Venturi Mask LUNGS: Decreased breath sounds. CARDIOVASCULAR: Regular S1 and S2 and tachycardic. ABDOMEN: Soft. EXTREMITIES: No pitting edema. Cristian England MD May 28, 2020 15:32
[2020-05-28 16:00] VITALS: BP 100/66
--- NOTE | 2020-05-28 17:12 | Pulmonology Progress Note ---
Subjective ROS Limited/Unobtainable: No Constitutional: Reports: no symptoms HEENT: Repors: no symptoms Respiratory: Reports: dry cough Gastrointestinal/Abdominal: Reports: no symptoms Genitourinary: Reports: no symptoms Musculoskeletal: Denies: pain Allergies: Coded Allergies: No Known Allergies (Unverified , 05/19/20) Subjective care noted still on 100% oxygen Objective Last 24 Hour Vital Signs Date Time Temp Pulse Resp B/P (MAP) Pulse Ox O2 Delivery O2 Flow Rate FiO2 05/28/20 16:00 96.9 109 23 100/66 (77) 99 05/28/20 16:00 Non-Rebreather 15.0 05/28/20 16:00 105 05/28/20 16:00 15.0 05/28/20 12:00 96.4 104 25 103/50 (67) 98 05/28/20 12:00 102 05/28/20 12:00 15.0 05/28/20 12:00 Non-Rebreather 15.0 05/28/20 08:00 15.0 05/28/20 08:00 96.4 116 24 98/70 (79) 94 05/28/20 08:00 113 05/28/20 08:00 Non-Rebreather 15.0 05/28/20 07:00 116 20 94 Non-Rebreather 15.0 100 05/28/20 07:00 94 Non-Rebreather 15.0 100 05/28/20 04:00 Non-Rebreather 15.0 05/28/20 04:00 15.0 05/28/20 04:00 103 05/28/20 04:00 97.7 103 24 103/65 (78) 98 05/28/20 00:00 15.0 05/28/20 00:00 102 05/28/20 00:00 Non-Rebreather 15.0 05/28/20 00:00 97.7 106 24 107/67 (80) 98 05/27/20 20:00 97.7 104 24 102/62 (75) 99 05/27/20 20:00 Non-Rebreather 15.0 05/27/20 20:00 99 05/27/20 20:00 15.0 Intake and Output 05/27/20 05/28/20 19:00 07:00 Intake Total 500 ml 240 ml Output Total 250 ml 360 ml Balance 250 ml -120 ml Intake Oral 500 ml 240 ml Output Urine Total 250 ml 360 ml # Bowel Movements 1 General Appearance: no acute distress Respiratory: chest wall non-tender, normal breath sounds, no respiratory distress, no accessory muscle use, decreased breath sounds Cardiovascular: normal peripheral pulses, normal rate Abdomen: normal bowel sounds Extremities: no cyanosis, no clubbing, no edema Laboratory Tests 05/28/20 03:15: White Blood Count 9.3, Red Blood Count 4.55, Hemoglobin 12.9, Hematocrit 39.2, Mean Corpuscular Volume 86, Mean Corpuscular Hemoglobin 28.4, Mean Corpuscular Hemoglobin Concent 33.0, Red Cell Distribution Width 14.3, Platelet Count 352, Mean Platelet Volume 5.7L, Neutrophils (%) (Auto) 76.4H, Lymphocytes (%) (Auto) 8.4L, Monocytes (%) (Auto) 10.6H, Eosinophils (%) (Auto) 3.7H, Basophils (%) (Auto) 0.9, Sodium Level 135L, Potassium Level 4.5, Chloride Level 100, Carbon Dioxide Level 30, Anion Gap 5, Blood Urea Nitrogen 62H, Creatinine 1.5H, Estimat Glomerular Filtration Rate 35.3, Glucose Level 174H, Calcium Level 9.3, Phosphorus Level 4.1, Magnesium Level 2.2, Total Bilirubin 0.3, Aspartate Amino Transf (AST/SGOT) 19, Alanine Aminotransferase (ALT/SGPT) 15, Alkaline Phosphatase 49, Total Protein 5.7L, Albumin 2.1L, Globulin 3.6, Albumin/Globulin Ratio 0.6L Current Medications Medications (Trade) Dose Ordered Sig/Jennie Route PRN Reason Start Time Stop Time Status Last Admin Dose Admin Acetaminophen (Tylenol) 500 mg Q6H PRN ORAL Mild Pain (Pain Scale 1-3) 05/19/20 16:45 06/18/20 16:44 Albuterol/ Ipratropium (Albuterol/ Ipratropium) 3 ml Q4HRT PRN HHN Shortness of Breath 05/25/20 20:15 05/30/20 20:14 05/25/20 20:25 Clonidine HCl (Catapres Tab) 0.1 mg Q4H PRN ORAL SBP > 170 05/24/20 13:15 08/22/20 13:14 Docusate Sodium (Colace) 100 mg TWICE A DAY ORAL 05/22/20 18:00 06/21/20 17:59 05/28/20 08:51 Enoxaparin Sodium (Lovenox) 30 mg DAILY SUBQ 05/28/20 09:00 08/26/20 08:59 05/28/20 08:53 Furosemide (Lasix) 40 mg DAILY ORAL 05/27/20 09:00 06/26/20 08:59 05/28/20 08:52 Pantoprazole (Protonix) 40 mg Q12HR ORAL 05/22/20 21:00 06/21/20 20:59 05/28/20 08:51 Assessment/Plan Assessment/Plan IMPRESSION: 1. History of CML, on dasatinib. 2. Possible pneumonia. 3. Large pleural effusion, s/p thoracentesis. 4. Hypertension. 5. Elevated D-dimer 6. Hypoxemic respiratory failure DISCUSSION: S/p R thoracentesis, improved after tap x 2 monitor off BiPAP taper oxygen as able; now improved broad-spectrum antibiotics. Cardiology following may need PlueRX if fluid recurs oxygen at high flow and concern for respiratory failure and need for intubation repeat CXR and ABG noted still full code d/w family will tap other side impression, plan, and exam edited and reviewed in detail care discussed with Ifeanyi Rosas MD May 28, 2020 17:12
[2020-05-28 20:00] VITALS: BP 130/68
--- NOTE | 2020-05-28 21:55 | General Progress Note ---
Subjective Allergies: Coded Allergies: No Known Allergies (Unverified , 05/19/20) Subjective above noted on po diet tolerating well no coughing with food Objective Last 24 Hour Vital Signs Date Time Temp Pulse Resp B/P (MAP) Pulse Ox O2 Delivery O2 Flow Rate FiO2 05/28/20 19:43 103 05/28/20 19:30 96 Non-Rebreather 15.0 100 05/28/20 19:30 101 22 96 Non-Rebreather 15.0 100 05/28/20 16:00 96.9 109 23 100/66 (77) 99 05/28/20 16:00 Non-Rebreather 15.0 05/28/20 16:00 105 05/28/20 16:00 15.0 05/28/20 12:00 96.4 104 25 103/50 (67) 98 05/28/20 12:00 102 05/28/20 12:00 15.0 05/28/20 12:00 Non-Rebreather 15.0 05/28/20 08:00 15.0 05/28/20 08:00 96.4 116 24 98/70 (79) 94 05/28/20 08:00 113 05/28/20 08:00 Non-Rebreather 15.0 05/28/20 07:00 116 20 94 Non-Rebreather 15.0 100 05/28/20 07:00 94 Non-Rebreather 15.0 100 05/28/20 04:00 Non-Rebreather 15.0 05/28/20 04:00 15.0 05/28/20 04:00 103 05/28/20 04:00 97.7 103 24 103/65 (78) 98 05/28/20 00:00 15.0 05/28/20 00:00 102 05/28/20 00:00 Non-Rebreather 15.0 05/28/20 00:00 97.7 106 24 107/67 (80) 98 Intake and Output 05/27/20 05/28/20 19:00 07:00 Intake Total 500 ml 240 ml Output Total 250 ml 360 ml Balance 250 ml -120 ml Intake Oral 500 ml 240 ml Output Urine Total 250 ml 360 ml # Bowel Movements 1 Laboratory Tests 05/28/20 03:15: White Blood Count 9.3, Red Blood Count 4.55, Hemoglobin 12.9, Hematocrit 39.2, Mean Corpuscular Volume 86, Mean Corpuscular Hemoglobin 28.4, Mean Corpuscular Hemoglobin Concent 33.0, Red Cell Distribution Width 14.3, Platelet Count 352, Mean Platelet Volume 5.7L, Neutrophils (%) (Auto) 76.4H, Lymphocytes (%) (Auto) 8.4L, Monocytes (%) (Auto) 10.6H, Eosinophils (%) (Auto) 3.7H, Basophils (%) (Auto) 0.9, Sodium Level 135L, Potassium Level 4.5, Chloride Level 100, Carbon Dioxide Level 30, Anion Gap 5, Blood Urea Nitrogen 62H, Creatinine 1.5H, Estimat Glomerular Filtration Rate 35.3, Glucose Level 174H, Calcium Level 9.3, Phosphorus Level 4.1, Magnesium Level 2.2, Total Bilirubin 0.3, Aspartate Amino Transf (AST/SGOT) 19, Alanine Aminotransferase (ALT/SGPT) 15, Alkaline Phosphatase 49, Total Protein 5.7L, Albumin 2.1L, Globulin 3.6, Albumin/Globulin Ratio 0.6L Height (Feet): 5 Height (Inches): 0.00 Weight (Pounds): 100 Objective NCAT supple Coarse BS RR abd soft no edema Assessment/Plan Status: progressing Assessment/Plan: Assessment - Respiratory failure - improving - pleural effusions, s/p thoracentesis - Renal failure - Malnutrition - Elevated troponin - HTN - CML Recommendations - Pulmonary management - careful po diet - follow labs and exam Antonio Ratliff MD May 28, 2020 21:55
[2020-05-29] VITALS: BP 102/72
[2020-05-29 04:00] VITALS: BP 115/73
--- NOTE | 2020-05-29 07:10 | Hematology/Onc Progress Note ---
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, sees oncologist in [facility] --> at this time STOP desatanib (also is the likely cause of pleural effusions) --> no is s/p thora per pulm/cards --> wbc trend 18->7 --> hgb 11.5->12 --> ABX ceftriaxone-->off --> bipap, thora prn --> needs molecular and cytogenectic response for CML, f/u oncologist outpatient # Bilateral pleural effusion --> as per pulm, is on bipap --> thora as needed --> repeat thora prn 05/29 # HTN --> hydralazine and lisinopril --> sbp goal <140 # Dehydration --> goal of euvolemia # Elevated ddimer --> duplex lower ext r/o dvt==>neg # Dvt ppx lovenox sq Appreciate consultation and zachariah RN Subjective Constitutional: Denies: no symptoms, chills, fever, malaise, weakness, other HEENT: Denies: no symptoms, eye pain, blurred vision, tearing, double vision, ear pain, ear discharge, nose pain, nose congestion, throat pain, throat swelling, mouth pain, mouth swelling, other Cardiovascular: Denies: no symptoms, chest pain, edema, irregular heart rate, lightheadedness, palpitations, syncope, other Respiratory: Denies: no symptoms, cough, shortness of breath, SOB with excertion, SOB at rest, sputum, wheezing, other Gastrointestinal/Abdominal: Denies: no symptoms, abdomen distended, abdominal pain, black stools, tarry stools, blood in stool, constipated, diarrhea, difficulty swallowing, nausea, poor appetite, poor fluid intake, rectal bleeding, vomiting, other Genitourinary: Denies: no symptoms, burning, discharge, frequency, flank pain, hematuria, incontinence, pain, urgency, other Neurologic/Psychiatric: Denies: no symptoms, anxiety, depressed, emotional problems, headache, numbness, paresthesia, pre-existing deficit, seizure, tingling, tremors, weakness, other Endocrine: Denies: no symptoms, excessive sweating, flushing, intolerance to cold, intolerance to heat, increased hunger, increased thirst, increased urine, unexplained weight gain, unexplained weight loss, other Hematologic/Lymphatic: Denies: no symptoms, anemia, easy bleeding, easy bruising, adenopathy, other Allergies: Coded Allergies: No Known Allergies (Unverified , 05/19/20) Subjective 05/21 labs are noted, no bleeding, with pleural effusions due to desatanbib, s/p thora 05/22 labs are noted, no bleeding, on bipap, i dw her today to stop her med at once 05/24 wbc is improved, continue on ctx for one more day per id, bipap 05/26 have ordered for repeat cxr this am to reeval pleural effusions, labs noted 05/27 with b/l pleural effusions, aware from pulm, thora prn 05/28 has been refusing scds, thus will start lovenox today, breathing better s/p thora 05/29 with nonrebreather, for thora today, no night sweats, meds noted Objective Objective Current Medications Medications (Trade) Dose Ordered Sig/Jennie Route PRN Reason Start Time Stop Time Status Last Admin Dose Admin Acetaminophen (Tylenol) 500 mg Q6H PRN ORAL Mild Pain (Pain Scale 1-3) 05/19/20 16:45 06/18/20 16:44 Albuterol/ Ipratropium (Albuterol/ Ipratropium) 3 ml Q4HRT PRN HHN Shortness of Breath 05/25/20 20:15 05/30/20 20:14 05/25/20 20:25 Clonidine HCl (Catapres Tab) 0.1 mg Q4H PRN ORAL SBP > 170 05/24/20 13:15 08/22/20 13:14 Docusate Sodium (Colace) 100 mg TWICE A DAY ORAL 05/22/20 18:00 06/21/20 17:59 05/28/20 08:51 Enoxaparin Sodium (Lovenox) 30 mg DAILY SUBQ 05/28/20 09:00 08/26/20 08:59 05/28/20 08:53 Furosemide (Lasix) 40 mg DAILY ORAL 05/27/20 09:00 06/26/20 08:59 05/28/20 08:52 Pantoprazole (Protonix) 40 mg Q12HR ORAL 05/22/20 21:00 06/21/20 20:59 05/28/20 21:16 Last 24 Hour Vital Signs Date Time Temp Pulse Resp B/P (MAP) Pulse Ox O2 Delivery O2 Flow Rate FiO2 05/29/20 04:00 Non-Rebreather 15.0 05/29/20 04:00 96.4 104 22 115/73 (87) 96 05/29/20 04:00 15.0 05/29/20 03:28 102 05/29/20 00:00 97.3 98 24 102/72 (82) 98 05/29/20 00:00 98 05/29/20 00:00 15.0 05/29/20 00:00 Non-Rebreather 15.0 05/28/20 20:00 15.0 05/28/20 20:00 Non-Rebreather 15.0 05/28/20 20:00 96.4 101 23 130/68 (88) 97 05/28/20 19:43 103 05/28/20 19:30 96 Non-Rebreather 15.0 100 05/28/20 19:30 101 22 96 Non-Rebreather 15.0 100 05/28/20 16:00 96.9 109 23 100/66 (77) 99 05/28/20 16:00 Non-Rebreather 15.0 05/28/20 16:00 105 05/28/20 16:00 15.0 05/28/20 12:00 96.4 104 25 103/50 (67) 98 05/28/20 12:00 102 05/28/20 12:00 15.0 05/28/20 12:00 Non-Rebreather 15.0 05/28/20 08:00 15.0 05/28/20 08:00 96.4 116 24 98/70 (79) 94 05/28/20 08:00 113 05/28/20 08:00 Non-Rebreather 15.0 05/28/20 07:00 116 20 94 Non-Rebreather 15.0 100 05/28/20 07:00 94 Non-Rebreather 15.0 100 05/28/20 04:00 Non-Rebreather 15.0 05/28/20 04:00 15.0 05/28/20 04:00 103 05/28/20 04:00 97.7 103 24 103/65 (78) 98 05/28/20 00:00 15.0 05/28/20 00:00 102 05/28/20 00:00 Non-Rebreather 15.0 05/28/20 00:00 97.7 106 24 107/67 (80) 98 05/27/20 20:00 97.7 104 24 102/62 (75) 99 05/27/20 20:00 Non-Rebreather 15.0 05/27/20 20:00 99 05/27/20 20:00 15.0 05/27/20 16:10 15.0 100 05/27/20 16:10 Bi-pap 05/27/20 16:00 97.5 105 24 104/58 (73) 99 05/27/20 15:24 98 05/27/20 12:07 Bi-pap 05/27/20 12:00 15.0 100 05/27/20 12:00 97.3 112 24 139/77 (97) 94 05/27/20 11:43 115 05/27/20 08:00 Bi-pap 05/27/20 08:00 15.0 100 05/27/20 08:00 97.3 108 24 156/77 (103) 95 05/27/20 07:43 114 Intake and Output 05/28/20 05/29/20 19:00 07:00 Intake Total 310 ml 250 ml Output Total 600 ml 350 ml Balance -290 ml -100 ml Intake Oral 310 ml 250 ml Output Urine Total 600 ml 350 ml # Voids 3 # Bowel Movements 1 Labs Test 05/27/20 07:45 05/28/20 03:15 White Blood Count 10.0 K/UL (4.8-10.8) 9.3 K/UL (4.8-10.8) Red Blood Count 4.49 M/UL (4.20-5.40) 4.55 M/UL (4.20-5.40) Hemoglobin 13.1 G/DL (12.0-16.0) 12.9 G/DL (12.0-16.0) Hematocrit 38.8 % (37.0-47.0) 39.2 % (37.0-47.0) Mean Corpuscular Volume 87 FL (80-99) 86 FL (80-99) Mean Corpuscular Hemoglobin 29.2 PG (27.0-31.0) 28.4 PG (27.0-31.0) Mean Corpuscular Hemoglobin Concent 33.8 G/DL (32.0-36.0) 33.0 G/DL (32.0-36.0) Red Cell Distribution Width 13.8 % (11.6-14.8) 14.3 % (11.6-14.8) Platelet Count 379 K/UL (150-450) 352 K/UL (150-450) Mean Platelet Volume 5.8 FL (6.5-10.1) 5.7 FL (6.5-10.1) Neutrophils (%) (Auto) 84.6 % (45.0-75.0) 76.4 % (45.0-75.0) Lymphocytes (%) (Auto) 4.8 % (20.0-45.0) 8.4 % (20.0-45.0) Monocytes (%) (Auto) 8.1 % (1.0-10.0) 10.6 % (1.0-10.0) Eosinophils (%) (Auto) 1.4 % (0.0-3.0) 3.7 % (0.0-3.0) Basophils (%) (Auto) 1.2 % (0.0-2.0) 0.9 % (0.0-2.0) Sodium Level 135 MMOL/L (136-145) Potassium Level 4.5 MMOL/L (3.5-5.1) Chloride Level 100 MMOL/L (98-107) Carbon Dioxide Level 30 MMOL/L (21-32) Anion Gap 5 mmol/L (5-15) Blood Urea Nitrogen 62 mg/dL (7-18) Creatinine 1.5 MG/DL (0.55-1.30) Estimat Glomerular Filtration Rate 35.3 mL/min (>60) Glucose Level 174 MG/DL (74-106) Calcium Level 9.3 MG/DL (8.5-10.1) Phosphorus Level 4.1 MG/DL (2.5-4.9) Magnesium Level 2.2 MG/DL (1.8-2.4) Total Bilirubin 0.3 MG/DL (0.2-1.0) Aspartate Amino Transf (AST/SGOT) 19 U/L (15-37) Alanine Aminotransferase (ALT/SGPT) 15 U/L (12-78) Alkaline Phosphatase 49 U/L (46-116) Total Protein 5.7 G/DL (6.4-8.2) Albumin 2.1 G/DL (3.4-5.0) Globulin 3.6 g/dL Albumin/Globulin Ratio 0.6 (1.0-2.7) Height (Feet): 5 Height (Inches): 0.00 Weight (Pounds): 100 Dionicio Higgins MD May 29, 2020 07:10
[2020-05-29 08:00] VITALS: BP 122/67
[2020-05-29] MEDS: Enoxaparin 30mg Inj SUBQ SCH (08:13)
[2020-05-29] MEDS: Furosemide 40mg tab ORAL SCH (08:14)
[2020-05-29] MEDS: Docusate 100mg cap ORAL SCH ×2 (08:14→17:23)
--- NOTE | 2020-05-29 08:29 | Pulmonology Progress Note ---
Subjective ROS Limited/Unobtainable: No Constitutional: Reports: no symptoms HEENT: Repors: no symptoms Respiratory: Reports: dry cough Gastrointestinal/Abdominal: Reports: no symptoms Genitourinary: Reports: no symptoms Musculoskeletal: Denies: pain Allergies: Coded Allergies: No Known Allergies (Unverified , 05/19/20) Subjective care noted still on 100% oxygen Objective Last 24 Hour Vital Signs Date Time Temp Pulse Resp B/P (MAP) Pulse Ox O2 Delivery O2 Flow Rate FiO2 05/29/20 07:52 98 Non-Rebreather 15.0 100 05/29/20 07:52 94 20 98 Non-Rebreather 15.0 100 05/29/20 04:00 Non-Rebreather 15.0 05/29/20 04:00 96.4 104 22 115/73 (87) 96 05/29/20 04:00 15.0 05/29/20 03:28 102 05/29/20 00:00 97.3 98 24 102/72 (82) 98 05/29/20 00:00 98 05/29/20 00:00 15.0 05/29/20 00:00 Non-Rebreather 15.0 05/28/20 20:00 15.0 05/28/20 20:00 Non-Rebreather 15.0 05/28/20 20:00 96.4 101 23 130/68 (88) 97 05/28/20 19:43 103 05/28/20 19:30 96 Non-Rebreather 15.0 100 05/28/20 19:30 101 22 96 Non-Rebreather 15.0 100 05/28/20 16:00 96.9 109 23 100/66 (77) 99 05/28/20 16:00 Non-Rebreather 15.0 05/28/20 16:00 105 05/28/20 16:00 15.0 05/28/20 12:00 96.4 104 25 103/50 (67) 98 05/28/20 12:00 102 05/28/20 12:00 15.0 05/28/20 12:00 Non-Rebreather 15.0 Intake and Output 05/28/20 05/29/20 19:00 07:00 Intake Total 310 ml 250 ml Output Total 600 ml 350 ml Balance -290 ml -100 ml Intake Oral 310 ml 250 ml Output Urine Total 600 ml 350 ml # Voids 3 # Bowel Movements 1 General Appearance: no acute distress Respiratory: chest wall non-tender, normal breath sounds, no respiratory distress, no accessory muscle use, decreased breath sounds Cardiovascular: normal peripheral pulses, normal rate Abdomen: normal bowel sounds Extremities: no cyanosis, no clubbing, no edema Current Medications Medications (Trade) Dose Ordered Sig/Jennie Route PRN Reason Start Time Stop Time Status Last Admin Dose Admin Acetaminophen (Tylenol) 500 mg Q6H PRN ORAL Mild Pain (Pain Scale 1-3) 05/19/20 16:45 06/18/20 16:44 Albuterol/ Ipratropium (Albuterol/ Ipratropium) 3 ml Q4HRT PRN HHN Shortness of Breath 05/25/20 20:15 05/30/20 20:14 05/25/20 20:25 Clonidine HCl (Catapres Tab) 0.1 mg Q4H PRN ORAL SBP > 170 05/24/20 13:15 08/22/20 13:14 Docusate Sodium (Colace) 100 mg TWICE A DAY ORAL 05/22/20 18:00 06/21/20 17:59 05/29/20 08:14 Enoxaparin Sodium (Lovenox) 30 mg DAILY SUBQ 05/28/20 09:00 08/26/20 08:59 05/29/20 08:13 Furosemide (Lasix) 40 mg DAILY ORAL 05/27/20 09:00 06/26/20 08:59 05/29/20 08:14 Pantoprazole (Protonix) 40 mg Q12HR ORAL 05/22/20 21:00 06/21/20 20:59 05/29/20 08:14 Assessment/Plan Assessment/Plan IMPRESSION: 1. History of CML, on dasatinib. 2. Possible pneumonia. 3. Large pleural effusion, s/p thoracentesis. 4. Hypertension. 5. Elevated D-dimer 6. Hypoxemic respiratory failure DISCUSSION: S/p R thoracentesis, improved after tap x 2 but now again oxygen saturations down monitor off BiPAP taper oxygen as able; now improved broad-spectrum antibiotics. Cardiology following may need PlueRX if fluid recurs- defer to oncology as to life expectance oxygen at high flow and concern for respiratory failure and need for intubation repeat CXR and ABG noted still full code d/w family and update will tap other side- orders written impression, plan, and exam edited and reviewed in detail care discussed with Ifeanyi Rosas MD May 29, 2020 08:29
--- NOTE | 2020-05-29 11:16 | Infectious Diseases Prog Note ---
Assessment/Plan Assessment/Plan IMPRESSION: Leukocytosis, resolved systemic inflammatory response syndrome or sepsis, Recurrent pleural effusion, CML, Accelerated hypertension, Elevation of troponin. Hypoxemia RECOMMENDATION: Observe off antibiotic May need pleurodesis Subjective ROS Limited/Unobtainable: Yes Constitutional: Denies: fever Respiratory: Reports: shortness of breath Gastrointestinal/Abdominal: Reports: no symptoms Genitourinary: Reports: no symptoms Allergies: Coded Allergies: No Known Allergies (Unverified , 05/19/20) Objective Last 24 Hour Vital Signs Date Time Temp Pulse Resp B/P (MAP) Pulse Ox O2 Delivery O2 Flow Rate FiO2 05/29/20 08:00 15.0 05/29/20 08:00 97.2 103 22 122/67 (85) 96 05/29/20 08:00 Non-Rebreather 15.0 Non-Rebreather 15.0 05/29/20 07:52 98 Non-Rebreather 15.0 100 05/29/20 07:52 94 20 98 Non-Rebreather 15.0 100 05/29/20 07:29 103 05/29/20 04:00 Non-Rebreather 15.0 05/29/20 04:00 96.4 104 22 115/73 (87) 96 05/29/20 04:00 15.0 05/29/20 03:28 102 05/29/20 00:00 97.3 98 24 102/72 (82) 98 05/29/20 00:00 98 05/29/20 00:00 15.0 05/29/20 00:00 Non-Rebreather 15.0 05/28/20 20:00 15.0 05/28/20 20:00 Non-Rebreather 15.0 05/28/20 20:00 96.4 101 23 130/68 (88) 97 05/28/20 19:43 103 05/28/20 19:30 96 Non-Rebreather 15.0 100 05/28/20 19:30 101 22 96 Non-Rebreather 15.0 100 05/28/20 16:00 96.9 109 23 100/66 (77) 99 05/28/20 16:00 Non-Rebreather 15.0 05/28/20 16:00 105 05/28/20 16:00 15.0 05/28/20 12:00 96.4 104 25 103/50 (67) 98 05/28/20 12:00 102 05/28/20 12:00 15.0 05/28/20 12:00 Non-Rebreather 15.0 Height (Feet): 5 Height (Inches): 0.00 Weight (Pounds): 100 General Appearance: no acute distress HEENT: mucous membranes moist Respiratory/Chest: decreased breath sounds, other - oxygen by rebreathing mask Cardiovascular: tachycardia Abdomen: soft, non tender Extremities: no edema Neurologic/Psychiatric: alert, oriented x 3 Current Medications Medications (Trade) Dose Ordered Sig/Jennie Route PRN Reason Start Time Stop Time Status Last Admin Dose Admin Acetaminophen (Tylenol) 500 mg Q6H PRN ORAL Mild Pain (Pain Scale 1-3) 05/19/20 16:45 06/18/20 16:44 Albuterol/ Ipratropium (Albuterol/ Ipratropium) 3 ml Q4HRT PRN HHN Shortness of Breath 05/25/20 20:15 05/30/20 20:14 05/25/20 20:25 Clonidine HCl (Catapres Tab) 0.1 mg Q4H PRN ORAL SBP > 170 05/24/20 13:15 08/22/20 13:14 Docusate Sodium (Colace) 100 mg TWICE A DAY ORAL 05/22/20 18:00 06/21/20 17:59 05/29/20 08:14 Enoxaparin Sodium (Lovenox) 30 mg DAILY SUBQ 05/28/20 09:00 08/26/20 08:59 05/29/20 08:13 Furosemide (Lasix) 40 mg DAILY ORAL 05/27/20 09:00 06/26/20 08:59 05/29/20 08:14 Pantoprazole (Protonix) 40 mg Q12HR ORAL 05/22/20 21:00 06/21/20 20:59 05/29/20 08:14 Timothy Pennington MD May 29, 2020 11:15
[2020-05-29 12:00] VITALS: BP 129/74
--- NOTE | 2020-05-29 13:10 | Nephrology Progress Note ---
Assessment/Plan Problem List: (1) ASHLEY (acute kidney injury) (2) Bilateral pleural effusion (3) Leukemia Assessment Imp: Acute renal failure, with sudden jump in serum creatinine to 2.7 History of leukemia Hypertension, now hypotensive Hyponatremia on admission, improved Bilateral pleural effusion. Status post paracentesis. Elevated troponin, most likely leak. Plan May 29: No chemistry panel done today. Remains on nonrebreather mask. Will order labs tomorrow. Continue per consultants. May 28: Serum creatinine up to 1.5. Remains on nonrebreather mask. Since admission had 3 thoracenteses for pleural effusion over the left and right. Respiratory status remains unstable. Continue per pulmonary. Will watch renal parameters. May 27: When seen the patient was on 100% nonrebreather mask. Renal panel within normal limit. Continue per consultants. Main problem remains respiratory. May 26: Renal parameters stable. Started on Lasix 40 mg daily. Continue to monitor renal parameters and electrolytes. Continue per consultants. May 25: Renal parameters within normal limit. Another dose of IV Lasix given. Continue to monitor electrolytes. Continue per consultants. May 24: Renal parameters normalized. Will give the Lasix 40 mg IV once. 1 dose of Kayexalate for hyperkalemia. Continue to monitor renal parameters. Previously: Today renal parameters are improved. Serum creatinine down to 1.6 from 2.7 Continue to hold lisinopril Continue to hold Lasix Half Normal saline 100 cc an hour one liter only was given yesterday Albumin bolus given yesterday, repeat as needed Monitor renal parameters Avoid nephrotoxic's Subjective ROS Limited/Unobtainable: No Constitutional: Reports: malaise Objective Objective Last 24 Hour Vital Signs Date Time Temp Pulse Resp B/P (MAP) Pulse Ox O2 Delivery O2 Flow Rate FiO2 05/29/20 08:00 15.0 05/29/20 08:00 97.2 103 22 122/67 (85) 96 05/29/20 08:00 Non-Rebreather 15.0 Non-Rebreather 15.0 05/29/20 07:52 98 Non-Rebreather 15.0 100 05/29/20 07:52 94 20 98 Non-Rebreather 15.0 100 05/29/20 07:29 103 05/29/20 04:00 Non-Rebreather 15.0 05/29/20 04:00 96.4 104 22 115/73 (87) 96 05/29/20 04:00 15.0 05/29/20 03:28 102 05/29/20 00:00 97.3 98 24 102/72 (82) 98 05/29/20 00:00 98 05/29/20 00:00 15.0 05/29/20 00:00 Non-Rebreather 15.0 05/28/20 20:00 15.0 05/28/20 20:00 Non-Rebreather 15.0 05/28/20 20:00 96.4 101 23 130/68 (88) 97 05/28/20 19:43 103 05/28/20 19:30 96 Non-Rebreather 15.0 100 05/28/20 19:30 101 22 96 Non-Rebreather 15.0 100 05/28/20 16:00 96.9 109 23 100/66 (77) 99 05/28/20 16:00 Non-Rebreather 15.0 05/28/20 16:00 105 05/28/20 16:00 15.0 Intake and Output 05/28/20 05/29/20 19:00 07:00 Intake Total 310 ml 250 ml Output Total 600 ml 350 ml Balance -290 ml -100 ml Intake Oral 310 ml 250 ml Output Urine Total 600 ml 350 ml # Voids 3 # Bowel Movements 1 No can panel done today Height (Feet): 5 Height (Inches): 0.00 Weight (Pounds): 100 General Appearance: no apparent distress EENT: other - Remains on nonrebreather mask Cardiovascular: tachycardia Abdomen: distended Montrell Carpio MD May 29, 2020 13:10
[2020-05-29 16:00] VITALS: BP 103/69
--- NOTE | 2020-05-29 17:00 | Cardiac Electrophysiology PN ---
Assessment/Plan Assessment/Plan 1. Accelerated hypertension. Now off Lisinopril and Lasix for acute renal failure BP stable off any BP meds. On prn Clonidine 2. Troponin leak. Level low and no CP and likely due to renal failure 3. Bilateral pleural effusions. S/P Right side thoracentesis x 2. FU by Dr. Olson. S/P Left thoracentesis again today 4. Hyponatremia. 5. CML x 5 years, sees oncologist in [facility] area DCed desatanib (also is the likely cause of pleural effusions) Per Dr Dolan 6. Acute renal failure with sudden JUMP in creatinine to 2.7. FU Dr Carpio. Better after iv fluid, Albumin and off Lasix and Lisinopril. Cr now 1.0 DW RN c Subjective Subjective S/P Right sided thoracentesis ( 1.2 liters of serosanguineous fluid ) on 05/21/20. Had Left thoracentesis and again 1.5 liter Right thoracentesis on 06/25/20 S/P 500 cc Left thoracentesis today On High flow oxygen. Son at bedside. Alert In SR Objective Last 24 Hour Vital Signs Date Time Temp Pulse Resp B/P (MAP) Pulse Ox O2 Delivery O2 Flow Rate FiO2 05/29/20 12:00 98.0 97 24 129/74 (92) 98 05/29/20 08:00 15.0 05/29/20 08:00 97.2 103 22 122/67 (85) 96 05/29/20 08:00 Non-Rebreather 15.0 Non-Rebreather 15.0 05/29/20 07:52 98 Non-Rebreather 15.0 100 05/29/20 07:52 94 20 98 Non-Rebreather 15.0 100 05/29/20 07:29 103 05/29/20 04:00 Non-Rebreather 15.0 05/29/20 04:00 96.4 104 22 115/73 (87) 96 05/29/20 04:00 15.0 05/29/20 03:28 102 05/29/20 00:00 97.3 98 24 102/72 (82) 98 05/29/20 00:00 98 05/29/20 00:00 15.0 05/29/20 00:00 Non-Rebreather 15.0 05/28/20 20:00 15.0 05/28/20 20:00 Non-Rebreather 15.0 05/28/20 20:00 96.4 101 23 130/68 (88) 97 05/28/20 19:43 103 05/28/20 19:30 96 Non-Rebreather 15.0 100 05/28/20 19:30 101 22 96 Non-Rebreather 15.0 100 Intake and Output 05/28/20 05/29/20 19:00 07:00 Intake Total 310 ml 250 ml Output Total 600 ml 350 ml Balance -290 ml -100 ml Intake Oral 310 ml 250 ml Output Urine Total 600 ml 350 ml # Voids 3 # Bowel Movements 1 Objective HEAD AND NECK: No JVD. On Venturi Mask LUNGS: Decreased breath sounds. CARDIOVASCULAR: Regular S1 and S2 and tachycardic. ABDOMEN: Soft. EXTREMITIES: No pitting edema. Cristian England MD May 29, 2020 17:00
--- NOTE | 2020-05-29 17:19 | Pre-Procedure Note/Attestation ---
Pre-Procedure Note/Attestation Complete Prior to Procedure Planned Procedure: left Procedure Narrative: Thoracentesis Indications for Procedure Pre-Operative Diagnosis: pleural effusion Attestation I attest that I discussed the nature of the procedure; its benefits; risks and complications; and alternatives (and the risks and benefits of such alternatives), prior to the procedure, with the patient (or the patient's legal dairy supplies sales representative). I attest that, if there was a reasonable possibility of needing a blood mccain sfusion, the patient (or the patient's legal dairy supplies sales representative) was given the [facility] standardized written summary, pursuant to the Jose Juan Stephanie Blood Safety Act ([place] Health and Safety Code # 1645, as amended). I attest that I re-evaluated the patient just prior to the surgery and that there has been no change in the patient's H&P, except as documented below: Hany Chacon MD May 29, 2020 17:19
--- NOTE | 2020-05-29 17:20 | Brief Operative Note ---
Immediate Post Operative Note Operative Note Pre-op Diagnosis: pleural effusion Procedure: L thoracentesis Post-op Diagnosis: same as pre-op Surgeon: Noah Baca Anesthesia: local Specimen: none Complications: none Fluids: none Implant(s) used?: No Hany Baca MD May 29, 2020 17:20
--- NOTE | 2020-05-29 17:40 | Diagnostic Imaging Report ---
Indications: Pleural effusion Technique: Ultrasound used to localize optimal puncture site. Sterile prepping and draping left chest. Local anesthesia with 1% lidocaine. Under real-time ultrasound guidance, puncture pleural space using thoracentesis needle. Stylet removed. Catheter placed to vacuum bottle suction. Total 500 milliliters of fluid aspirated. For some reason, after 500 mL of fluid was evacuated, no further fluid could be evacuated, despite sonographic evidence of considerable residual fluid. Patient tolerated procedure well, without immediate complication. Findings: Followup sonography demonstrates considerable residual pleural fluid Impression: Partially successful ultrasound-guided thoracentesis, yielding 500 milliliters of fluid. Note that for uncertain reasons, the entire amount of fluid was not successfully evacuated.
--- NOTE | 2020-05-29 17:49 | Diagnostic Imaging Report ---
Indication: Postthoracentesis Technique: One view of the chest Comparison: 05/27/2020 Findings: Interim reaccumulation of pleural fluid on the right, now large pleural effusion present. Only slight decrease in amount of pleural fluid on the left, status post thoracentesis. No pneumothorax. Is again demonstrated is bilateral interstitial and airspace edema. This appears improved on the left compared to prior study, worse on the right. The heart borders are obscured Impression: Slightly decreased since persistent and still large left pleural effusion, status post left thoracentesis Evidence of reaccumulation of now large right pleural effusion Shifting parenchymal edema, as described
[2020-05-29 20:00] VITALS: BP 121/67
--- NOTE | 2020-05-29 22:02 | General Progress Note ---
Subjective ROS Limited/Unobtainable: Yes Allergies: Coded Allergies: No Known Allergies (Unverified , 05/19/20) Objective Last 24 Hour Vital Signs Date Time Temp Pulse Resp B/P (MAP) Pulse Ox O2 Delivery O2 Flow Rate FiO2 05/29/20 20:00 Non-Rebreather 15.0 Non-Rebreather 15.0 05/29/20 20:00 15.0 05/29/20 20:00 97.5 93 20 121/67 (85) 97 05/29/20 16:00 93 05/29/20 16:00 103 05/29/20 16:00 97.0 94 20 103/69 (80) 100 05/29/20 16:00 15.0 05/29/20 16:00 Non-Rebreather 15.0 Non-Rebreather 15.0 05/29/20 12:00 15.0 05/29/20 12:00 98.0 97 24 129/74 (92) 98 05/29/20 12:00 Non-Rebreather 15.0 Non-Rebreather 15.0 05/29/20 11:32 99 05/29/20 08:00 15.0 05/29/20 08:00 97.2 103 22 122/67 (85) 96 05/29/20 08:00 Non-Rebreather 15.0 Non-Rebreather 15.0 05/29/20 07:52 98 Non-Rebreather 15.0 100 05/29/20 07:52 94 20 98 Non-Rebreather 15.0 100 05/29/20 07:29 103 05/29/20 04:00 Non-Rebreather 15.0 05/29/20 04:00 96.4 104 22 115/73 (87) 96 05/29/20 04:00 15.0 05/29/20 03:28 102 05/29/20 00:00 97.3 98 24 102/72 (82) 98 05/29/20 00:00 98 05/29/20 00:00 15.0 05/29/20 00:00 Non-Rebreather 15.0 Intake and Output 05/28/20 05/29/20 19:00 07:00 Intake Total 310 ml 250 ml Output Total 600 ml 350 ml Balance -290 ml -100 ml Intake Oral 310 ml 250 ml Output Urine Total 600 ml 350 ml # Voids 3 # Bowel Movements 1 Height (Feet): 5 Height (Inches): 0.00 Weight (Pounds): 100 Assessment/Plan Problem List: (1) Leukemia ICD Codes: C95.90 - Leukemia, unspecified not having achieved remission SNOMED: 61816753 (2) Bilateral pleural effusion ICD Codes: J90 - Pleural effusion, not elsewhere classified SNOMED: 390011753 Status: progressing Assessment/Plan: worsening azotemia afebrile review labs weak s/p thoracocenesis leukemia bilat pleural effusion improving Tiara Jara MD May 29, 2020 22:02
--- NOTE | 2020-05-29 22:12 | General Progress Note ---
Subjective Allergies: Coded Allergies: No Known Allergies (Unverified , 05/19/20) Subjective above noted on po diet tolerating well no coughing with food Objective Last 24 Hour Vital Signs Date Time Temp Pulse Resp B/P (MAP) Pulse Ox O2 Delivery O2 Flow Rate FiO2 05/29/20 20:00 Non-Rebreather 15.0 Non-Rebreather 15.0 05/29/20 20:00 15.0 05/29/20 20:00 97.5 93 20 121/67 (85) 97 05/29/20 16:00 93 05/29/20 16:00 103 05/29/20 16:00 97.0 94 20 103/69 (80) 100 05/29/20 16:00 15.0 05/29/20 16:00 Non-Rebreather 15.0 Non-Rebreather 15.0 05/29/20 12:00 15.0 05/29/20 12:00 98.0 97 24 129/74 (92) 98 05/29/20 12:00 Non-Rebreather 15.0 Non-Rebreather 15.0 05/29/20 11:32 99 05/29/20 08:00 15.0 05/29/20 08:00 97.2 103 22 122/67 (85) 96 05/29/20 08:00 Non-Rebreather 15.0 Non-Rebreather 15.0 05/29/20 07:52 98 Non-Rebreather 15.0 100 05/29/20 07:52 94 20 98 Non-Rebreather 15.0 100 05/29/20 07:29 103 05/29/20 04:00 Non-Rebreather 15.0 05/29/20 04:00 96.4 104 22 115/73 (87) 96 05/29/20 04:00 15.0 05/29/20 03:28 102 05/29/20 00:00 97.3 98 24 102/72 (82) 98 05/29/20 00:00 98 05/29/20 00:00 15.0 05/29/20 00:00 Non-Rebreather 15.0 Intake and Output 05/28/20 05/29/20 19:00 07:00 Intake Total 310 ml 250 ml Output Total 600 ml 350 ml Balance -290 ml -100 ml Intake Oral 310 ml 250 ml Output Urine Total 600 ml 350 ml # Voids 3 # Bowel Movements 1 Height (Feet): 5 Height (Inches): 0.00 Weight (Pounds): 100 Objective NCAT supple Coarse BS RR abd soft no edema Assessment/Plan Status: progressing Assessment/Plan: Assessment - Respiratory failure - improving - pleural effusions, s/p thoracentesis - Renal failure - Malnutrition - Elevated troponin - HTN - CML Recommendations - Pulmonary management - careful po diet - follow labs and exam - I will return Monday to see pt Antonio Ratliff MD May 29, 2020 22:12
[2020-05-30] VITALS: BP 114/62
[2020-05-30 04:00] VITALS: BP 107/71
[2020-05-30 05:15] LABS: BASOPHILS % (AUTO) 2.2 % (0.0-2.0); EOSINOPHILS % (AUTO) 3.9 % (0.0-3.0); HEMATOCRIT 40.2 % (37.0-47.0); HEMOGLOBIN 13.3 G/DL (12.0-16.0); LYMPHOCYTES % (AUTO) 10.7 % (20.0-45.0); MEAN CORPUSCULAR VOLUME 87 FL (80-99); NEUTROPHILS % (AUTO) 71.3 % (45.0-75.0); PLATELET COUNT 393 K/UL (150-450); RED CELL DISTRIBUTION WIDTH 14.1 % (11.6-14.8); WHITE BLOOD COUNT 10.6 K/UL (4.8-10.8)
[2020-05-30 05:56] LABS: ALBUMIN 2.2 G/DL (3.4-5.0); ALBUMIN/GLOBULIN RATIO 0.5 (1.0-2.7); BILIRUBIN,TOTAL 0.3 MG/DL (0.2-1.0); CALCIUM 9.1 MG/DL (8.5-10.1); CREATININE 1.2 MG/DL (0.55-1.30); POTASSIUM 4.4 MMOL/L (3.5-5.1)
--- NOTE | 2020-05-30 07:39 | General Progress Note ---
Subjective ROS Limited/Unobtainable: No Allergies: Coded Allergies: No Known Allergies (Unverified , 05/19/20) Objective Last 24 Hour Vital Signs Date Time Temp Pulse Resp B/P (MAP) Pulse Ox O2 Delivery O2 Flow Rate FiO2 05/30/20 04:00 15.0 05/30/20 04:00 107 05/30/20 04:00 Non-Rebreather 15.0 Non-Rebreather 15.0 05/30/20 04:00 96.3 103 24 107/71 (83) 96 05/30/20 00:00 Non-Rebreather 15.0 Non-Rebreather 15.0 05/30/20 00:00 97.2 96 24 114/62 (79) 96 05/30/20 00:00 15.0 05/30/20 00:00 98 05/29/20 20:00 94 05/29/20 20:00 Non-Rebreather 15.0 Non-Rebreather 15.0 05/29/20 20:00 15.0 05/29/20 20:00 97.5 93 20 121/67 (85) 97 05/29/20 16:00 93 05/29/20 16:00 103 05/29/20 16:00 97.0 94 20 103/69 (80) 100 05/29/20 16:00 15.0 05/29/20 16:00 Non-Rebreather 15.0 Non-Rebreather 15.0 05/29/20 12:00 15.0 05/29/20 12:00 98.0 97 24 129/74 (92) 98 05/29/20 12:00 Non-Rebreather 15.0 Non-Rebreather 15.0 05/29/20 11:32 99 05/29/20 08:00 15.0 05/29/20 08:00 97.2 103 22 122/67 (85) 96 05/29/20 08:00 Non-Rebreather 15.0 Non-Rebreather 15.0 05/29/20 07:52 98 Non-Rebreather 15.0 100 05/29/20 07:52 94 20 98 Non-Rebreather 15.0 100 Intake and Output 05/29/20 05/30/20 19:00 07:00 Intake Total 480 ml 200 ml Output Total 450 ml 350 ml Balance 30 ml -150 ml Intake Oral 480 ml 200 ml Output Urine Total 450 ml 350 ml # Bowel Movements 1 1 Laboratory Tests 05/30/20 04:10: White Blood Count 10.6, Red Blood Count 4.60, Hemoglobin 13.3, Hematocrit 40.2, Mean Corpuscular Volume 87, Mean Corpuscular Hemoglobin 28.9, Mean Corpuscular Hemoglobin Concent 33.1, Red Cell Distribution Width 14.1, Platelet Count 393, Mean Platelet Volume 6.0L, Neutrophils (%) (Auto) 71.3, Lymphocytes (%) (Auto) 10.7L, Monocytes (%) (Auto) 12.0H, Eosinophils (%) (Auto) 3.9H, Basophils (%) (Auto) 2.2H, Sodium Level 138, Potassium Level 4.4, Chloride Level 100, Carbon Dioxide Level 31, Anion Gap 7, Blood Urea Nitrogen 57H, Creatinine 1.2, Estimat Glomerular Filtration Rate 45.7, Glucose Level 202H, Calcium Level 9.1, Phosphorus Level 4.0, Magnesium Level 2.3, Total Bilirubin 0.3, Aspartate Amino Transf (AST/SGOT) 23, Alanine Aminotransferase (ALT/SGPT) 14, Alkaline Phosphatase 59, C-Reactive Protein, Quantitative 15.2H, Pro-B-Type Natriuretic Peptide 1127H, Total Protein 6.7, Albumin 2.2L, Globulin 4.5, Albumin/Globulin Ratio 0.5L Height (Feet): 5 Height (Inches): 0.00 Weight (Pounds): 100 General Appearance: no apparent distress EENT: normal ENT inspection Neck: supple Cardiovascular: normal rate Respiratory/Chest: decreased breath sounds Abdomen: hypoactive bowel sounds Extremities: non-tender Assessment/Plan Status: progressing Assessment/Plan: Assessment - Respiratory failure - improving - pleural effusions, s/p thoracentesis - Renal failure - Malnutrition - Elevated troponin - HTN - CML Recommendations - Pulmonary management - careful po diet - follow labs and exam Carlos Awad MD May 30, 2020 07:39
[2020-05-30 08:00] VITALS: BP 130/68
[2020-05-30] MEDS: Docusate 100mg cap ORAL SCH ×2 (09:17→18:25)
[2020-05-30] MEDS: Furosemide 40mg tab ORAL SCH (09:18)
[2020-05-30] MEDS: Enoxaparin 30mg Inj SUBQ SCH (09:20)
--- NOTE | 2020-05-30 10:07 | Pulmonology Progress Note ---
Subjective ROS Limited/Unobtainable: No Constitutional: Denies: fever HEENT: Repors: no symptoms Respiratory: Reports: dry cough Gastrointestinal/Abdominal: Reports: no symptoms Genitourinary: Reports: no symptoms Musculoskeletal: Denies: pain Allergies: Coded Allergies: No Known Allergies (Unverified , 05/19/20) Objective Last 24 Hour Vital Signs Date Time Temp Pulse Resp B/P (MAP) Pulse Ox O2 Delivery O2 Flow Rate FiO2 05/30/20 08:05 94 Non-Rebreather 15.0 100 05/30/20 08:00 94 22 94 Non-Rebreather 15.0 100 05/30/20 04:00 15.0 05/30/20 04:00 107 05/30/20 04:00 Non-Rebreather 15.0 Non-Rebreather 15.0 05/30/20 04:00 96.3 103 24 107/71 (83) 96 05/30/20 00:00 Non-Rebreather 15.0 Non-Rebreather 15.0 05/30/20 00:00 97.2 96 24 114/62 (79) 96 05/30/20 00:00 15.0 05/30/20 00:00 98 05/29/20 20:00 94 05/29/20 20:00 Non-Rebreather 15.0 Non-Rebreather 15.0 05/29/20 20:00 15.0 05/29/20 20:00 97.5 93 20 121/67 (85) 97 05/29/20 16:00 93 05/29/20 16:00 103 05/29/20 16:00 97.0 94 20 103/69 (80) 100 05/29/20 16:00 15.0 05/29/20 16:00 Non-Rebreather 15.0 Non-Rebreather 15.0 05/29/20 12:00 15.0 05/29/20 12:00 98.0 97 24 129/74 (92) 98 05/29/20 12:00 Non-Rebreather 15.0 Non-Rebreather 15.0 05/29/20 11:32 99 Intake and Output 05/29/20 05/30/20 19:00 07:00 Intake Total 480 ml 200 ml Output Total 450 ml 350 ml Balance 30 ml -150 ml Intake Oral 480 ml 200 ml Output Urine Total 450 ml 350 ml # Bowel Movements 1 1 General Appearance: no acute distress Respiratory: chest wall non-tender, normal breath sounds, no respiratory distress, no accessory muscle use, decreased breath sounds Cardiovascular: normal peripheral pulses, normal rate Abdomen: normal bowel sounds Extremities: no cyanosis, no clubbing, no edema Laboratory Tests 05/30/20 04:10: White Blood Count 10.6, Red Blood Count 4.60, Hemoglobin 13.3, Hematocrit 40.2, Mean Corpuscular Volume 87, Mean Corpuscular Hemoglobin 28.9, Mean Corpuscular Hemoglobin Concent 33.1, Red Cell Distribution Width 14.1, Platelet Count 393, Mean Platelet Volume 6.0L, Neutrophils (%) (Auto) 71.3, Lymphocytes (%) (Auto) 10.7L, Monocytes (%) (Auto) 12.0H, Eosinophils (%) (Auto) 3.9H, Basophils (%) (Auto) 2.2H, Sodium Level 138, Potassium Level 4.4, Chloride Level 100, Carbon Dioxide Level 31, Anion Gap 7, Blood Urea Nitrogen 57H, Creatinine 1.2, Estimat Glomerular Filtration Rate 45.7, Glucose Level 202H, Calcium Level 9.1, Phosphorus Level 4.0, Magnesium Level 2.3, Total Bilirubin 0.3, Aspartate Amino Transf (AST/SGOT) 23, Alanine Aminotransferase (ALT/SGPT) 14, Alkaline Phosphatase 59, C-Reactive Protein, Quantitative 15.2H, Pro-B-Type Natriuretic Peptide 1127H, Total Protein 6.7, Albumin 2.2L, Globulin 4.5, Albumin/Globulin Ratio 0.5L Current Medications Medications (Trade) Dose Ordered Sig/Jennie Route PRN Reason Start Time Stop Time Status Last Admin Dose Admin Acetaminophen (Tylenol) 500 mg Q6H PRN ORAL Mild Pain (Pain Scale 1-3) 05/19/20 16:45 06/18/20 16:44 Albuterol/ Ipratropium (Albuterol/ Ipratropium) 3 ml Q4HRT PRN HHN Shortness of Breath 05/25/20 20:15 05/30/20 20:14 05/25/20 20:25 Clonidine HCl (Catapres Tab) 0.1 mg Q4H PRN ORAL SBP > 170 05/24/20 13:15 08/22/20 13:14 Docusate Sodium (Colace) 100 mg TWICE A DAY ORAL 05/22/20 18:00 06/21/20 17:59 05/30/20 09:17 Enoxaparin Sodium (Lovenox) 30 mg DAILY SUBQ 05/28/20 09:00 08/26/20 08:59 05/30/20 09:20 Furosemide (Lasix) 40 mg DAILY ORAL 05/27/20 09:00 06/26/20 08:59 05/30/20 09:18 Pantoprazole (Protonix) 40 mg Q12HR ORAL 05/22/20 21:00 06/21/20 20:59 05/30/20 09:17 Assessment/Plan Assessment/Plan Pulmonary Progress Note Subjective ROS Limited/Unobtainable: No Constitutional: Reports: anorexia; Denies: fever HEENT: Repors: no symptoms Respiratory: Reports: dry cough Gastrointestinal/Abdominal: Reports: no symptoms Genitourinary: Reports: no symptoms Allergies: Coded Allergies: No Known Allergies (Unverified , 05/19/20) Subjective care noted on NRB Objective Vital Signs noted General Appearance: on NRB Respiratory: chest wall non-tender, normal breath sounds, no respiratory distress, no accessory muscle use, decreased breath sounds Cardiovascular: normal peripheral pulses, normal rate Abdomen: normal bowel sounds Extremities: no cyanosis, no clubbing, no edema Laboratory Tests noted Assessment/Plan IMPRESSION: 1. History of CML, on dasatinib. 2. Possible pneumonia. 3. Large pleural effusion, s/p thoracentesis. 4. Hypertension. 5. Elevated D-dimer 6. Hypoxemic respiratory failure DISCUSSION: S/p R thoracentesis, improved after tap x 2 but now again oxygen saturations down monitor off BiPAP taper oxygen as able; now improved broad-spectrum antibiotics. Cardiology following may need PlueRX if fluid recurs- defer to oncology as to life expectance oxygen at high flow and concern for respiratory failure and need for intubation repeat CXR and ABG noted still full code d/w family and update will tap other side- orders written impression, plan, and exam edited and reviewed in detail care discussed with Ho Munroe MD May 30, 2020 10:07
[2020-05-30 12:00] VITALS: BP 138/72
[2020-05-30] MEDS ORDERED: Sterile Water Irrig 1000ml IRRIG ONE (12:54)
--- NOTE | 2020-05-30 13:33 | Nephrology Progress Note ---
Assessment/Plan Problem List: (1) ASHLEY (acute kidney injury) (2) Bilateral pleural effusion (3) Leukemia Assessment Imp: Acute renal failure, with sudden jump in serum creatinine to 2.7 History of leukemia Hypertension, now hypotensive Hyponatremia on admission, improved Bilateral pleural effusion. Status post paracentesis. Elevated troponin, most likely leak. Plan May 30: Labs reviewed. Renal parameters stable. Continue per pulmonary. May 29: No chemistry panel done today. Remains on nonrebreather mask. Will order labs tomorrow. Continue per consultants. May 28: Serum creatinine up to 1.5. Remains on nonrebreather mask. Since admission had 3 thoracenteses for pleural effusion over the left and right. Respiratory status remains unstable. Continue per pulmonary. Will watch renal parameters. May 27: When seen the patient was on 100% nonrebreather mask. Renal panel within normal limit. Continue per consultants. Main problem remains respiratory. May 26: Renal parameters stable. Started on Lasix 40 mg daily. Continue to monitor renal parameters and electrolytes. Continue per consultants. May 25: Renal parameters within normal limit. Another dose of IV Lasix given. Continue to monitor electrolytes. Continue per consultants. May 24: Renal parameters normalized. Will give the Lasix 40 mg IV once. 1 dose of Kayexalate for hyperkalemia. Continue to monitor renal parameters. Previously: Today renal parameters are improved. Serum creatinine down to 1.6 from 2.7 Continue to hold lisinopril Continue to hold Lasix Half Normal saline 100 cc an hour one liter only was given yesterday Albumin bolus given yesterday, repeat as needed Monitor renal parameters Avoid nephrotoxic's Subjective ROS Limited/Unobtainable: Yes Objective Objective Last 24 Hour Vital Signs Date Time Temp Pulse Resp B/P (MAP) Pulse Ox O2 Delivery O2 Flow Rate FiO2 05/30/20 12:00 95 05/30/20 12:00 Non-Rebreather 15.0 Non-Rebreather 15.0 05/30/20 12:00 97.7 99 24 138/72 (94) 95 05/30/20 12:00 15.0 05/30/20 08:05 94 Non-Rebreather 15.0 100 05/30/20 08:00 15.0 05/30/20 08:00 97.2 101 24 130/68 (88) 95 05/30/20 08:00 104 05/30/20 08:00 Non-Rebreather 15.0 Non-Rebreather 15.0 05/30/20 08:00 94 22 94 Non-Rebreather 15.0 100 05/30/20 04:00 15.0 05/30/20 04:00 107 05/30/20 04:00 Non-Rebreather 15.0 Non-Rebreather 15.0 05/30/20 04:00 96.3 103 24 107/71 (83) 96 05/30/20 00:00 Non-Rebreather 15.0 Non-Rebreather 15.0 05/30/20 00:00 97.2 96 24 114/62 (79) 96 05/30/20 00:00 15.0 05/30/20 00:00 98 05/29/20 20:00 94 05/29/20 20:00 Non-Rebreather 15.0 Non-Rebreather 15.0 05/29/20 20:00 15.0 05/29/20 20:00 97.5 93 20 121/67 (85) 97 05/29/20 16:00 93 05/29/20 16:00 103 05/29/20 16:00 97.0 94 20 103/69 (80) 100 05/29/20 16:00 15.0 05/29/20 16:00 Non-Rebreather 15.0 Non-Rebreather 15.0 Intake and Output 05/29/20 05/30/20 19:00 07:00 Intake Total 480 ml 200 ml Output Total 450 ml 350 ml Balance 30 ml -150 ml Intake Oral 480 ml 200 ml Output Urine Total 450 ml 350 ml # Bowel Movements 1 1 Laboratory Tests 05/30/20 04:10: White Blood Count 10.6, Red Blood Count 4.60, Hemoglobin 13.3, Hematocrit 40.2, Mean Corpuscular Volume 87, Mean Corpuscular Hemoglobin 28.9, Mean Corpuscular Hemoglobin Concent 33.1, Red Cell Distribution Width 14.1, Platelet Count 393, Mean Platelet Volume 6.0L, Neutrophils (%) (Auto) 71.3, Lymphocytes (%) (Auto) 10.7L, Monocytes (%) (Auto) 12.0H, Eosinophils (%) (Auto) 3.9H, Basophils (%) (Auto) 2.2H, Sodium Level 138, Potassium Level 4.4, Chloride Level 100, Carbon Dioxide Level 31, Anion Gap 7, Blood Urea Nitrogen 57H, Creatinine 1.2, Estimat Glomerular Filtration Rate 45.7, Glucose Level 202H, Calcium Level 9.1, Phosphorus Level 4.0, Magnesium Level 2.3, Total Bilirubin 0.3, Aspartate Amino Transf (AST/SGOT) 23, Alanine Aminotransferase (ALT/SGPT) 14, Alkaline Phosphatase 59, C-Reactive Protein, Quantitative 15.2H, Pro-B-Type Natriuretic Peptide 1127H, Total Protein 6.7, Albumin 2.2L, Globulin 4.5, Albumin/Globulin Ratio 0.5L Height (Feet): 5 Height (Inches): 0.00 Weight (Pounds): 100 General Appearance: no apparent distress EENT: other - Remains on nonrebreather mask Cardiovascular: tachycardia Respiratory/Chest: decreased breath sounds Abdomen: distended Montrell Carpio MD May 30, 2020 13:33
[2020-05-30 16:00] VITALS: BP 136/72
--- NOTE | 2020-05-30 16:48 | Cardiac Electrophysiology PN ---
Assessment/Plan Assessment/Plan 1. Accelerated hypertension. Now off Lisinopril and Lasix for acute renal failure BP stable off any BP meds. On prn Clonidine 2. Troponin leak. Level low and no CP and likely due to renal failure 3. Bilateral pleural effusions. S/P Right side thoracentesis x 2. FU by Dr. Olson. S/P Left thoracentesis again 05/29/20 4. Hyponatremia. 5. CML x 5 years, sees oncologist in [facility] area DCed desatanib (also is the likely cause of pleural effusions) Per Dr Dolan 6. Acute renal failure with sudden JUMP in creatinine to 2.7. FU Dr Carpio. Better after iv fluid, Albumin and off Lasix and Lisinopril. Cr now 1.0 DW RN c Subjective Subjective S/P Right sided thoracentesis ( 1.2 liters of serosanguineous fluid ) on 05/21/20. Had Left thoracentesis and again 1.5 liter Right thoracentesis on 06/25/20 S/P 500 cc Left thoracentesis 05/29/20 On High flow oxygen. Sister at bedside. Alert In SR Objective Last 24 Hour Vital Signs Date Time Temp Pulse Resp B/P (MAP) Pulse Ox O2 Delivery O2 Flow Rate FiO2 05/30/20 12:00 95 05/30/20 12:00 Non-Rebreather 15.0 Non-Rebreather 15.0 05/30/20 12:00 97.7 99 24 138/72 (94) 95 05/30/20 12:00 15.0 05/30/20 08:05 94 Non-Rebreather 15.0 100 05/30/20 08:00 15.0 05/30/20 08:00 97.2 101 24 130/68 (88) 95 05/30/20 08:00 104 05/30/20 08:00 Non-Rebreather 15.0 Non-Rebreather 15.0 05/30/20 08:00 94 22 94 Non-Rebreather 15.0 100 05/30/20 04:00 15.0 05/30/20 04:00 107 05/30/20 04:00 Non-Rebreather 15.0 Non-Rebreather 15.0 05/30/20 04:00 96.3 103 24 107/71 (83) 96 05/30/20 00:00 Non-Rebreather 15.0 Non-Rebreather 15.0 05/30/20 00:00 97.2 96 24 114/62 (79) 96 05/30/20 00:00 15.0 05/30/20 00:00 98 05/29/20 20:00 94 05/29/20 20:00 Non-Rebreather 15.0 Non-Rebreather 15.0 05/29/20 20:00 15.0 05/29/20 20:00 97.5 93 20 121/67 (85) 97 Intake and Output 05/29/20 05/30/20 19:00 07:00 Intake Total 480 ml 200 ml Output Total 450 ml 350 ml Balance 30 ml -150 ml Intake Oral 480 ml 200 ml Output Urine Total 450 ml 350 ml # Bowel Movements 1 1 Laboratory Tests Test 05/30/20 04:10 White Blood Count 10.6 K/UL (4.8-10.8) Red Blood Count 4.60 M/UL (4.20-5.40) Hemoglobin 13.3 G/DL (12.0-16.0) Hematocrit 40.2 % (37.0-47.0) Mean Corpuscular Volume 87 FL (80-99) Mean Corpuscular Hemoglobin 28.9 PG (27.0-31.0) Mean Corpuscular Hemoglobin Concent 33.1 G/DL (32.0-36.0) Red Cell Distribution Width 14.1 % (11.6-14.8) Platelet Count 393 K/UL (150-450) Mean Platelet Volume 6.0 FL (6.5-10.1) L Neutrophils (%) (Auto) 71.3 % (45.0-75.0) Lymphocytes (%) (Auto) 10.7 % (20.0-45.0) L Monocytes (%) (Auto) 12.0 % (1.0-10.0) H Eosinophils (%) (Auto) 3.9 % (0.0-3.0) H Basophils (%) (Auto) 2.2 % (0.0-2.0) H Sodium Level 138 MMOL/L (136-145) Potassium Level 4.4 MMOL/L (3.5-5.1) Chloride Level 100 MMOL/L (98-107) Carbon Dioxide Level 31 MMOL/L (21-32) Anion Gap 7 mmol/L (5-15) Blood Urea Nitrogen 57 mg/dL (7-18) H Creatinine 1.2 MG/DL (0.55-1.30) Estimat Glomerular Filtration Rate 45.7 mL/min (>60) Glucose Level 202 MG/DL (74-106) H Calcium Level 9.1 MG/DL (8.5-10.1) Phosphorus Level 4.0 MG/DL (2.5-4.9) Magnesium Level 2.3 MG/DL (1.8-2.4) Total Bilirubin 0.3 MG/DL (0.2-1.0) Aspartate Amino Transf (AST/SGOT) 23 U/L (15-37) Alanine Aminotransferase (ALT/SGPT) 14 U/L (12-78) Alkaline Phosphatase 59 U/L (46-116) C-Reactive Protein, Quantitative 15.2 mg/dL (0.00-0.90) H Pro-B-Type Natriuretic Peptide 1127 pg/mL (0-125) H Total Protein 6.7 G/DL (6.4-8.2) Albumin 2.2 G/DL (3.4-5.0) L Globulin 4.5 g/dL Albumin/Globulin Ratio 0.5 (1.0-2.7) L Objective HEAD AND NECK: No JVD. On Venturi Mask LUNGS: Decreased breath sounds. CARDIOVASCULAR: Regular S1 and S2 and tachycardic. ABDOMEN: Soft. EXTREMITIES: No pitting edema. Cristian England MD May 30, 2020 16:48
--- NOTE | 2020-05-30 16:49 | General Progress Note ---
Subjective ROS Limited/Unobtainable: Yes Allergies: Coded Allergies: No Known Allergies (Unverified , 05/19/20) Objective Last 24 Hour Vital Signs Date Time Temp Pulse Resp B/P (MAP) Pulse Ox O2 Delivery O2 Flow Rate FiO2 05/30/20 12:00 95 05/30/20 12:00 Non-Rebreather 15.0 Non-Rebreather 15.0 05/30/20 12:00 97.7 99 24 138/72 (94) 95 05/30/20 12:00 15.0 05/30/20 08:05 94 Non-Rebreather 15.0 100 05/30/20 08:00 15.0 05/30/20 08:00 97.2 101 24 130/68 (88) 95 05/30/20 08:00 104 05/30/20 08:00 Non-Rebreather 15.0 Non-Rebreather 15.0 05/30/20 08:00 94 22 94 Non-Rebreather 15.0 100 05/30/20 04:00 15.0 05/30/20 04:00 107 05/30/20 04:00 Non-Rebreather 15.0 Non-Rebreather 15.0 05/30/20 04:00 96.3 103 24 107/71 (83) 96 05/30/20 00:00 Non-Rebreather 15.0 Non-Rebreather 15.0 05/30/20 00:00 97.2 96 24 114/62 (79) 96 05/30/20 00:00 15.0 05/30/20 00:00 98 05/29/20 20:00 94 05/29/20 20:00 Non-Rebreather 15.0 Non-Rebreather 15.0 05/29/20 20:00 15.0 05/29/20 20:00 97.5 93 20 121/67 (85) 97 Intake and Output 05/29/20 05/30/20 19:00 07:00 Intake Total 480 ml 200 ml Output Total 450 ml 350 ml Balance 30 ml -150 ml Intake Oral 480 ml 200 ml Output Urine Total 450 ml 350 ml # Bowel Movements 1 1 Laboratory Tests 05/30/20 04:10: White Blood Count 10.6, Red Blood Count 4.60, Hemoglobin 13.3, Hematocrit 40.2, Mean Corpuscular Volume 87, Mean Corpuscular Hemoglobin 28.9, Mean Corpuscular Hemoglobin Concent 33.1, Red Cell Distribution Width 14.1, Platelet Count 393, Mean Platelet Volume 6.0L, Neutrophils (%) (Auto) 71.3, Lymphocytes (%) (Auto) 10.7L, Monocytes (%) (Auto) 12.0H, Eosinophils (%) (Auto) 3.9H, Basophils (%) (Auto) 2.2H, Sodium Level 138, Potassium Level 4.4, Chloride Level 100, Carbon Dioxide Level 31, Anion Gap 7, Blood Urea Nitrogen 57H, Creatinine 1.2, Estimat Glomerular Filtration Rate 45.7, Glucose Level 202H, Calcium Level 9.1, Phosphorus Level 4.0, Magnesium Level 2.3, Total Bilirubin 0.3, Aspartate Amino Transf (AST/SGOT) 23, Alanine Aminotransferase (ALT/SGPT) 14, Alkaline Phosphatase 59, C-Reactive Protein, Quantitative 15.2H, Pro-B-Type Natriuretic Peptide 1127H, Total Protein 6.7, Albumin 2.2L, Globulin 4.5, Albumin/Globulin Ratio 0.5L Height (Feet): 5 Height (Inches): 0.00 Weight (Pounds): 100 Assessment/Plan Problem List: (1) Leukemia ICD Codes: C95.90 - Leukemia, unspecified not having achieved remission SNOMED: 55271500 (2) Bilateral pleural effusion ICD Codes: J90 - Pleural effusion, not elsewhere classified SNOMED: 873254794 Status: progressing Assessment/Plan: afebrile weak and prn oxygen s/p thoracocenesis leukemia bilat pleural effusion improving Tiara Jara MD May 30, 2020 16:49
[2020-05-30 20:00] VITALS: BP 114/70
[2020-05-31] VITALS: BP 117/67
[2020-05-31 04:00] VITALS: BP 133/80
[2020-05-31 08:00] VITALS: BP 145/80
[2020-05-31] MEDS ORDERED: Albuterol/Ipratropium 3ml neb HHN PRN (08:45)
--- NOTE | 2020-05-31 09:01 | Diagnostic Imaging Report ---
EXAM: XR Chest, 1 View CLINICAL HISTORY: PLEFF TECHNIQUE: Frontal view of the chest. COMPARISON: Chest radiograph May 29, 2020 FINDINGS/IMPRESSION: Pulmonary edema which has increased when compared to May 29, 2020. Moderate bilateral pleural effusions which is stable on the left and increased on the right when compared to May 29, 2020. No pneumothorax. The heart is enlarged.
--- NOTE | 2020-05-31 09:24 | General Progress Note ---
Subjective ROS Limited/Unobtainable: No Allergies: Coded Allergies: No Known Allergies (Unverified , 05/19/20) Objective Last 24 Hour Vital Signs Date Time Temp Pulse Resp B/P (MAP) Pulse Ox O2 Delivery O2 Flow Rate FiO2 05/31/20 08:00 97.2 101 20 145/80 (101) 91 05/31/20 07:25 91 Non-Rebreather 15.0 100 05/31/20 07:23 93 24 91 Non-Rebreather 15.0 100 05/31/20 06:01 94 05/31/20 04:00 15.0 05/31/20 04:00 Non-Rebreather 15.0 Non-Rebreather 15.0 05/31/20 04:00 97.5 97 22 133/80 (97) 97 05/31/20 00:00 15.0 05/31/20 00:00 Non-Rebreather 15.0 Non-Rebreather 15.0 05/31/20 00:00 95 05/31/20 00:00 97.5 97 24 117/67 (84) 97 05/30/20 20:00 99 05/30/20 20:00 15.0 05/30/20 20:00 97.5 98 26 114/70 (85) 97 05/30/20 20:00 Non-Rebreather 15.0 Non-Rebreather 15.0 05/30/20 19:02 103 28 94 Non-Rebreather 15.0 100 05/30/20 19:02 94 Non-Rebreather 15.0 100 05/30/20 16:00 15.0 05/30/20 16:00 102 05/30/20 16:00 97.7 98 24 136/72 (93) 96 05/30/20 16:00 Non-Rebreather 15.0 Non-Rebreather 15.0 05/30/20 12:00 95 05/30/20 12:00 Non-Rebreather 15.0 Non-Rebreather 15.0 05/30/20 12:00 97.7 99 24 138/72 (94) 95 05/30/20 12:00 15.0 Intake and Output 05/30/20 05/31/20 19:00 07:00 Intake Total 640 ml 300 ml Output Total 600 ml 450 ml Balance 40 ml -150 ml Intake Oral 640 ml 300 ml Output Urine Total 600 ml 450 ml # Bowel Movements 2 Height (Feet): 5 Height (Inches): 0.00 Weight (Pounds): 100 General Appearance: no apparent distress EENT: normal ENT inspection Neck: supple Cardiovascular: normal rate Respiratory/Chest: decreased breath sounds Abdomen: hypoactive bowel sounds Extremities: non-tender Assessment/Plan Status: progressing Assessment/Plan: Assessment - Respiratory failure - improving - pleural effusions, s/p thoracentesis - Renal failure - Malnutrition - Elevated troponin - HTN - CML Recommendations - Pulmonary management - careful po diet - follow labs and exam Carlos Awad MD May 31, 2020 09:24
[2020-05-31] MEDS: Furosemide 40mg tab ORAL SCH (09:33)
[2020-05-31] MEDS: Docusate 100mg cap ORAL SCH ×2 (09:33→16:56)
[2020-05-31] MEDS: Enoxaparin 30mg Inj SUBQ SCH (09:37)
--- NOTE | 2020-05-31 11:44 | Nephrology Progress Note ---
Assessment/Plan Problem List: (1) ASHLEY (acute kidney injury) (2) Bilateral pleural effusion (3) Leukemia Assessment Imp: Acute renal failure, with sudden jump in serum creatinine to 2.7 History of leukemia Hypertension, now hypotensive Hyponatremia on admission, improved Bilateral pleural effusion. Status post paracentesis. Elevated troponin, most likely leak. Plan May 31: No chemistry panel done today. Patient still on nonrebreathing mask. Patient full code. Will check lab tomorrow. Patient's main issue is respiratory. May 30: Labs reviewed. Renal parameters stable. Continue per pulmonary. May 29: No chemistry panel done today. Remains on nonrebreather mask. Will order labs tomorrow. Continue per consultants. May 28: Serum creatinine up to 1.5. Remains on nonrebreather mask. Since mission had 3 thoracenteses for pleural effusion over the left and right. Respiratory status remains unstable. Continue per pulmonary. Will watch renal parameters. May 27: When seen the patient was on 100% nonrebreather mask. Renal panel within normal limit. Continue per consultants. Main problem remains respiratory. May 26: Renal parameters stable. Started on Lasix 40 mg daily. Continue to monitor renal parameters and electrolytes. Continue per consultants. May 25: Renal parameters within normal limit. Another dose of IV Lasix given. Continue to monitor electrolytes. Continue per consultants. May 24: Renal parameters normalized. Will give the Lasix 40 mg IV once. 1 dose of Kayexalate for hyperkalemia. Continue to monitor renal parameters. Previously: Today renal parameters are improved. Serum creatinine down to 1.6 from 2.7 Continue to hold lisinopril Continue to hold Lasix Half Normal saline 100 cc an hour one liter only was given yesterday Albumin bolus given yesterday, repeat as needed Monitor renal parameters Avoid nephrotoxic's Subjective ROS Limited/Unobtainable: No Constitutional: Reports: malaise, weakness Objective Objective Last 24 Hour Vital Signs Date Time Temp Pulse Resp B/P (MAP) Pulse Ox O2 Delivery O2 Flow Rate FiO2 05/31/20 08:00 15.0 05/31/20 08:00 101 05/31/20 08:00 Non-Rebreather 15.0 Non-Rebreather 15.0 05/31/20 08:00 97.2 101 20 145/80 (101) 91 05/31/20 07:25 91 Non-Rebreather 15.0 100 05/31/20 07:23 93 24 91 Non-Rebreather 15.0 100 05/31/20 06:01 94 05/31/20 04:00 15.0 05/31/20 04:00 Non-Rebreather 15.0 Non-Rebreather 15.0 05/31/20 04:00 97.5 97 22 133/80 (97) 97 05/31/20 00:00 15.0 05/31/20 00:00 Non-Rebreather 15.0 Non-Rebreather 15.0 05/31/20 00:00 95 05/31/20 00:00 97.5 97 24 117/67 (84) 97 05/30/20 20:00 99 05/30/20 20:00 15.0 05/30/20 20:00 97.5 98 26 114/70 (85) 97 05/30/20 20:00 Non-Rebreather 15.0 Non-Rebreather 15.0 05/30/20 19:02 103 28 94 Non-Rebreather 15.0 100 05/30/20 19:02 94 Non-Rebreather 15.0 100 05/30/20 16:00 15.0 05/30/20 16:00 102 05/30/20 16:00 97.7 98 24 136/72 (93) 96 05/30/20 16:00 Non-Rebreather 15.0 Non-Rebreather 15.0 05/30/20 12:00 95 05/30/20 12:00 Non-Rebreather 15.0 Non-Rebreather 15.0 05/30/20 12:00 97.7 99 24 138/72 (94) 95 05/30/20 12:00 15.0 Intake and Output 05/30/20 05/31/20 19:00 07:00 Intake Total 640 ml 300 ml Output Total 600 ml 450 ml Balance 40 ml -150 ml Intake Oral 640 ml 300 ml Output Urine Total 600 ml 450 ml # Bowel Movements 2 Height (Feet): 5 Height (Inches): 0.00 Weight (Pounds): 100 General Appearance: mild distress Cardiovascular: tachycardia Respiratory/Chest: decreased breath sounds Abdomen: soft Montrell Carpio MD May 31, 2020 11:44
[2020-05-31 12:00] VITALS: BP 153/79
--- NOTE | 2020-05-31 14:02 | Hematology/Onc Progress Note ---
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, sees oncologist in [facility] --> at this time STOP desatanib (also is the likely cause of pleural effusions) --> no is s/p thora per pulm/cards --> wbc trend 18->7->10 --> hgb 11.5->12->13 --> ABX ceftriaxone-->off --> bipap, thora prn --> needs molecular and cytogenectic response for CML, f/u oncologist outpatient # Bilateral pleural effusion --> as per pulm, is on bipap --> thora as needed --> repeat thora prn 05/29 # HTN --> hydralazine and lisinopril --> sbp goal <140 # Dehydration --> goal of euvolemia # Elevated ddimer --> duplex lower ext r/o dvt==>neg # Dvt ppx lovenox sq Appreciate consultation and zachariah RN Subjective Constitutional: Denies: no symptoms, chills, fever, malaise, weakness, other HEENT: Denies: no symptoms, eye pain, blurred vision, tearing, double vision, ear pain, ear discharge, nose pain, nose congestion, throat pain, throat swelling, mouth pain, mouth swelling, other Cardiovascular: Denies: no symptoms, chest pain, edema, irregular heart rate, lightheadedness, palpitations, syncope, other Respiratory: Denies: no symptoms, cough, shortness of breath, SOB with excertion, SOB at rest, sputum, wheezing, other Gastrointestinal/Abdominal: Denies: no symptoms, abdomen distended, abdominal pain, black stools, tarry stools, blood in stool, constipated, diarrhea, difficulty swallowing, nausea, poor appetite, poor fluid intake, rectal bleeding, vomiting, other Neurologic/Psychiatric: Denies: no symptoms, anxiety, depressed, emotional problems, headache, numbness, paresthesia, pre-existing deficit, seizure, tingling, tremors, weakness, other Endocrine: Denies: no symptoms, excessive sweating, flushing, intolerance to cold, intolerance to heat, increased hunger, increased thirst, increased urine, unexplained weight gain, unexplained weight loss, other Hematologic/Lymphatic: Denies: no symptoms, anemia, easy bleeding, easy bruising, adenopathy, other Allergies: Coded Allergies: No Known Allergies (Unverified , 05/19/20) Subjective 05/21 labs are noted, no bleeding, with pleural effusions due to desatanbib, s/p thora 05/22 labs are noted, no bleeding, on bipap, i dw her today to stop her med at once 05/24 wbc is improved, continue on ctx for one more day per id, bipap 05/26 have ordered for repeat cxr this am to reeval pleural effusions, labs noted 05/27 with b/l pleural effusions, aware from pulm, thora prn 05/28 has been refusing scds, thus will start lovenox today, breathing better s/p thora 05/29 with nonrebreather, for thora today, no night sweats, meds noted 05/31 remains on bipap, meds reviewed, off desatanib, worse effusion r>l Objective Objective Current Medications Medications (Trade) Dose Ordered Sig/Jennie Route PRN Reason Start Time Stop Time Status Last Admin Dose Admin Acetaminophen (Tylenol) 500 mg Q6H PRN ORAL Mild Pain (Pain Scale 1-3) 05/19/20 16:45 06/18/20 16:44 Albuterol/ Ipratropium (Albuterol/ Ipratropium) 3 ml Q4H PRN HHN Shortness of Breath 05/31/20 08:45 06/05/20 08:44 Clonidine HCl (Catapres Tab) 0.1 mg Q4H PRN ORAL SBP > 170 05/24/20 13:15 08/22/20 13:14 Docusate Sodium (Colace) 100 mg TWICE A DAY ORAL 05/22/20 18:00 06/21/20 17:59 05/31/20 09:33 Enoxaparin Sodium (Lovenox) 30 mg DAILY SUBQ 05/28/20 09:00 08/26/20 08:59 05/31/20 09:37 Furosemide (Lasix) 40 mg DAILY ORAL 05/27/20 09:00 06/26/20 08:59 05/31/20 09:33 Pantoprazole (Protonix) 40 mg Q12HR ORAL 05/22/20 21:00 06/21/20 20:59 05/31/20 09:33 Last 24 Hour Vital Signs Date Time Temp Pulse Resp B/P (MAP) Pulse Ox O2 Delivery O2 Flow Rate FiO2 05/31/20 12:00 97.3 110 20 153/79 (103) 93 05/31/20 08:00 15.0 05/31/20 08:00 101 05/31/20 08:00 Non-Rebreather 15.0 Non-Rebreather 15.0 05/31/20 08:00 97.2 101 20 145/80 (101) 91 05/31/20 07:25 91 Non-Rebreather 15.0 100 05/31/20 07:23 93 24 91 Non-Rebreather 15.0 100 05/31/20 06:01 94 05/31/20 04:00 15.0 05/31/20 04:00 Non-Rebreather 15.0 Non-Rebreather 15.0 05/31/20 04:00 97.5 97 22 133/80 (97) 97 05/31/20 00:00 15.0 05/31/20 00:00 Non-Rebreather 15.0 Non-Rebreather 15.0 05/31/20 00:00 95 05/31/20 00:00 97.5 97 24 117/67 (84) 97 05/30/20 20:00 99 05/30/20 20:00 15.0 05/30/20 20:00 97.5 98 26 114/70 (85) 97 05/30/20 20:00 Non-Rebreather 15.0 Non-Rebreather 15.0 05/30/20 19:02 103 28 94 Non-Rebreather 15.0 100 05/30/20 19:02 94 Non-Rebreather 15.0 100 05/30/20 16:00 15.0 05/30/20 16:00 102 05/30/20 16:00 97.7 98 24 136/72 (93) 96 05/30/20 16:00 Non-Rebreather 15.0 Non-Rebreather 15.0 05/30/20 12:00 95 05/30/20 12:00 Non-Rebreather 15.0 Non-Rebreather 15.0 05/30/20 12:00 97.7 99 24 138/72 (94) 95 05/30/20 12:00 15.0 05/30/20 08:05 94 Non-Rebreather 15.0 100 05/30/20 08:00 15.0 05/30/20 08:00 97.2 101 24 130/68 (88) 95 05/30/20 08:00 104 05/30/20 08:00 Non-Rebreather 15.0 Non-Rebreather 15.0 05/30/20 08:00 94 22 94 Non-Rebreather 15.0 100 05/30/20 04:00 15.0 05/30/20 04:00 107 05/30/20 04:00 Non-Rebreather 15.0 Non-Rebreather 15.0 05/30/20 04:00 96.3 103 24 107/71 (83) 96 05/30/20 00:00 Non-Rebreather 15.0 Non-Rebreather 15.0 05/30/20 00:00 97.2 96 24 114/62 (79) 96 05/30/20 00:00 15.0 05/30/20 00:00 98 05/29/20 20:00 94 05/29/20 20:00 Non-Rebreather 15.0 Non-Rebreather 15.0 05/29/20 20:00 15.0 05/29/20 20:00 97.5 93 20 121/67 (85) 97 05/29/20 16:00 93 05/29/20 16:00 103 05/29/20 16:00 97.0 94 20 103/69 (80) 100 05/29/20 16:00 15.0 05/29/20 16:00 Non-Rebreather 15.0 Non-Rebreather 15.0 Intake and Output 05/30/20 05/31/20 19:00 07:00 Intake Total 640 ml 300 ml Output Total 600 ml 450 ml Balance 40 ml -150 ml Intake Oral 640 ml 300 ml Output Urine Total 600 ml 450 ml # Bowel Movements 2 Labs Test 05/30/20 04:10 05/31/20 12:40 White Blood Count 10.6 K/UL (4.8-10.8) Red Blood Count 4.60 M/UL (4.20-5.40) Hemoglobin 13.3 G/DL (12.0-16.0) Hematocrit 40.2 % (37.0-47.0) Mean Corpuscular Volume 87 FL (80-99) Mean Corpuscular Hemoglobin 28.9 PG (27.0-31.0) Mean Corpuscular Hemoglobin Concent 33.1 G/DL (32.0-36.0) Red Cell Distribution Width 14.1 % (11.6-14.8) Platelet Count 393 K/UL (150-450) Mean Platelet Volume 6.0 FL (6.5-10.1) Neutrophils (%) (Auto) 71.3 % (45.0-75.0) Lymphocytes (%) (Auto) 10.7 % (20.0-45.0) Monocytes (%) (Auto) 12.0 % (1.0-10.0) Eosinophils (%) (Auto) 3.9 % (0.0-3.0) Basophils (%) (Auto) 2.2 % (0.0-2.0) Sodium Level 138 MMOL/L (136-145) Potassium Level 4.4 MMOL/L (3.5-5.1) Chloride Level 100 MMOL/L (98-107) Carbon Dioxide Level 31 MMOL/L (21-32) Anion Gap 7 mmol/L (5-15) Blood Urea Nitrogen 57 mg/dL (7-18) Creatinine 1.2 MG/DL (0.55-1.30) Estimat Glomerular Filtration Rate 45.7 mL/min (>60) Glucose Level 202 MG/DL (74-106) Calcium Level 9.1 MG/DL (8.5-10.1) Phosphorus Level 4.0 MG/DL (2.5-4.9) Magnesium Level 2.3 MG/DL (1.8-2.4) Total Bilirubin 0.3 MG/DL (0.2-1.0) Aspartate Amino Transf (AST/SGOT) 23 U/L (15-37) Alanine Aminotransferase (ALT/SGPT) 14 U/L (12-78) Alkaline Phosphatase 59 U/L (46-116) C-Reactive Protein, Quantitative 15.2 mg/dL (0.00-0.90) Pro-B-Type Natriuretic Peptide 1127 pg/mL (0-125) Total Protein 6.7 G/DL (6.4-8.2) Albumin 2.2 G/DL (3.4-5.0) Globulin 4.5 g/dL Albumin/Globulin Ratio 0.5 (1.0-2.7) Arterial Blood pH 7.326 (7.350-7.450) Arterial Blood Partial Pressure CO2 59.0 mmHg (35.0-45.0) Arterial Blood Partial Pressure O2 60.0 mmHg (75.0-100.0) Arterial Blood HCO3 30.1 mmol/L (22.0-26.0) Arterial Blood Oxygen Saturation 88.5 % (95-100) Arterial Blood Base Excess 2.7 (-2-2) Sammy Test Positive Height (Feet): 5 Height (Inches): 0.00 Weight (Pounds): 100 Dionicio Higgins MD May 31, 2020 14:02
--- NOTE | 2020-05-31 14:41 | Infectious Diseases Prog Note ---
Assessment/Plan Assessment/Plan IMPRESSION: Leukocytosis, resolved systemic inflammatory response syndrome or sepsis, Recurrent pleural effusion, CML, Accelerated hypertension, Elevation of troponin. Hypoxemia RECOMMENDATION: Observe off antibiotic May need pleurodesis Subjective ROS Limited/Unobtainable: Yes Constitutional: Denies: fever Allergies: Coded Allergies: No Known Allergies (Unverified , 05/19/20) Objective Last 24 Hour Vital Signs Date Time Temp Pulse Resp B/P (MAP) Pulse Ox O2 Delivery O2 Flow Rate FiO2 05/31/20 12:00 97.3 110 20 153/79 (103) 93 05/31/20 08:00 15.0 05/31/20 08:00 101 05/31/20 08:00 Non-Rebreather 15.0 Non-Rebreather 15.0 05/31/20 08:00 97.2 101 20 145/80 (101) 91 05/31/20 07:25 91 Non-Rebreather 15.0 100 05/31/20 07:23 93 24 91 Non-Rebreather 15.0 100 05/31/20 06:01 94 05/31/20 04:00 15.0 05/31/20 04:00 Non-Rebreather 15.0 Non-Rebreather 15.0 05/31/20 04:00 97.5 97 22 133/80 (97) 97 05/31/20 00:00 15.0 05/31/20 00:00 Non-Rebreather 15.0 Non-Rebreather 15.0 05/31/20 00:00 95 05/31/20 00:00 97.5 97 24 117/67 (84) 97 05/30/20 20:00 99 05/30/20 20:00 15.0 05/30/20 20:00 97.5 98 26 114/70 (85) 97 05/30/20 20:00 Non-Rebreather 15.0 Non-Rebreather 15.0 05/30/20 19:02 103 28 94 Non-Rebreather 15.0 100 05/30/20 19:02 94 Non-Rebreather 15.0 100 05/30/20 16:00 15.0 05/30/20 16:00 102 05/30/20 16:00 97.7 98 24 136/72 (93) 96 05/30/20 16:00 Non-Rebreather 15.0 Non-Rebreather 15.0 Height (Feet): 5 Height (Inches): 0.00 Weight (Pounds): 100 HEENT: mucous membranes moist Respiratory/Chest: decreased breath sounds, other - on BIPAP Cardiovascular: tachycardia Abdomen: soft, non tender Extremities: no edema Neurologic/Psychiatric: other - sleeping Laboratory Tests Test 05/31/20 12:40 Arterial Blood pH 7.326 (7.350-7.450) Arterial Blood Partial Pressure CO2 59.0 mmHg (35.0-45.0) *H Arterial Blood Partial Pressure O2 60.0 mmHg (75.0-100.0) L Arterial Blood HCO3 30.1 mmol/L (22.0-26.0) H Arterial Blood Oxygen Saturation 88.5 % (95-100) *L Arterial Blood Base Excess 2.7 (-2-2) H Sammy Test Positive Current Medications Medications (Trade) Dose Ordered Sig/Jennie Route PRN Reason Start Time Stop Time Status Last Admin Dose Admin Acetaminophen (Tylenol) 500 mg Q6H PRN ORAL Mild Pain (Pain Scale 1-3) 05/19/20 16:45 06/18/20 16:44 Albuterol/ Ipratropium (Albuterol/ Ipratropium) 3 ml Q4H PRN HHN Shortness of Breath 05/31/20 08:45 06/05/20 08:44 Clonidine HCl (Catapres Tab) 0.1 mg Q4H PRN ORAL SBP > 170 05/24/20 13:15 08/22/20 13:14 Docusate Sodium (Colace) 100 mg TWICE A DAY ORAL 05/22/20 18:00 06/21/20 17:59 05/31/20 09:33 Enoxaparin Sodium (Lovenox) 30 mg DAILY SUBQ 05/28/20 09:00 08/26/20 08:59 05/31/20 09:37 Furosemide (Lasix) 40 mg DAILY ORAL 05/27/20 09:00 06/26/20 08:59 05/31/20 09:33 Pantoprazole (Protonix) 40 mg Q12HR ORAL 05/22/20 21:00 06/21/20 20:59 05/31/20 09:33 Timothy Pennington MD May 31, 2020 14:41
[2020-05-31 15:54] VITALS: BP 113/75
--- NOTE | 2020-05-31 16:42 | Pulmonology Progress Note ---
Subjective ROS Limited/Unobtainable: Yes Constitutional: Denies: fever HEENT: Repors: no symptoms Respiratory: Reports: dry cough Gastrointestinal/Abdominal: Reports: no symptoms Genitourinary: Reports: no symptoms Musculoskeletal: Denies: pain Allergies: Coded Allergies: No Known Allergies (Unverified , 05/19/20) Objective Last 24 Hour Vital Signs Date Time Temp Pulse Resp B/P (MAP) Pulse Ox O2 Delivery O2 Flow Rate FiO2 05/31/20 16:20 Bi-pap 100.0 Bi-pap 100.0 05/31/20 16:00 100 05/31/20 15:54 97.0 89 18 113/75 (88) 100 05/31/20 12:10 100 05/31/20 12:00 15.0 05/31/20 12:00 108 05/31/20 12:00 Bi-pap 100.0 Bi-pap 100.0 05/31/20 12:00 103 34 95 100 05/31/20 12:00 97.3 110 20 153/79 (103) 93 05/31/20 08:00 15.0 05/31/20 08:00 101 05/31/20 08:00 Non-Rebreather 15.0 Non-Rebreather 15.0 05/31/20 08:00 97.2 101 20 145/80 (101) 91 05/31/20 07:25 91 Non-Rebreather 15.0 100 05/31/20 07:23 93 24 91 Non-Rebreather 15.0 100 05/31/20 06:01 94 05/31/20 04:00 15.0 05/31/20 04:00 Non-Rebreather 15.0 Non-Rebreather 15.0 05/31/20 04:00 97.5 97 22 133/80 (97) 97 05/31/20 00:00 15.0 05/31/20 00:00 Non-Rebreather 15.0 Non-Rebreather 15.0 05/31/20 00:00 95 05/31/20 00:00 97.5 97 24 117/67 (84) 97 05/30/20 20:00 99 05/30/20 20:00 15.0 05/30/20 20:00 97.5 98 26 114/70 (85) 97 05/30/20 20:00 Non-Rebreather 15.0 Non-Rebreather 15.0 05/30/20 19:02 103 28 94 Non-Rebreather 15.0 100 05/30/20 19:02 94 Non-Rebreather 15.0 100 Intake and Output 05/30/20 05/31/20 19:00 07:00 Intake Total 640 ml 300 ml Output Total 600 ml 450 ml Balance 40 ml -150 ml Intake Oral 640 ml 300 ml Output Urine Total 600 ml 450 ml # Bowel Movements 2 General Appearance: no acute distress Respiratory: chest wall non-tender, normal breath sounds, no respiratory distress, no accessory muscle use, decreased breath sounds Cardiovascular: normal peripheral pulses, normal rate Abdomen: normal bowel sounds Extremities: no cyanosis, no clubbing, no edema Laboratory Tests 05/31/20 12:40: Arterial Blood pH 7.326L, Arterial Blood Partial Pressure CO2 59.0*H, Arterial Blood Partial Pressure O2 60.0L, Arterial Blood HCO3 30.1H, Arterial Blood Oxygen Saturation 88.5*L, Arterial Blood Base Excess 2.7H, Sammy Test Positive Current Medications Medications (Trade) Dose Ordered Sig/Jennie Route PRN Reason Start Time Stop Time Status Last Admin Dose Admin Acetaminophen (Tylenol) 500 mg Q6H PRN ORAL Mild Pain (Pain Scale 1-3) 05/19/20 16:45 06/18/20 16:44 Albuterol/ Ipratropium (Albuterol/ Ipratropium) 3 ml Q4H PRN HHN Shortness of Breath 05/31/20 08:45 06/05/20 08:44 Clonidine HCl (Catapres Tab) 0.1 mg Q4H PRN ORAL SBP > 170 05/24/20 13:15 08/22/20 13:14 Docusate Sodium (Colace) 100 mg TWICE A DAY ORAL 05/22/20 18:00 06/21/20 17:59 05/31/20 09:33 Enoxaparin Sodium (Lovenox) 30 mg DAILY SUBQ 05/28/20 09:00 08/26/20 08:59 05/31/20 09:37 Furosemide (Lasix) 40 mg DAILY ORAL 05/27/20 09:00 06/26/20 08:59 05/31/20 09:33 Pantoprazole (Protonix) 40 mg Q12HR ORAL 05/22/20 21:00 06/21/20 20:59 05/31/20 09:33 Assessment/Plan Assessment/Plan Pulmonary Progress Note Subjective ROS Limited/Unobtainable: No Constitutional: Reports: anorexia; Denies: fever HEENT: Repors: no symptoms Respiratory: Reports: dry cough Gastrointestinal/Abdominal: Reports: no symptoms Genitourinary: Reports: no symptoms Allergies: Coded Allergies: No Known Allergies (Unverified , 05/19/20) Subjective care noted on BiPAP Objective Vital Signs noted General Appearance: on NRB Respiratory: chest wall non-tender, normal breath sounds, no respiratory distress, no accessory muscle use, decreased breath sounds Cardiovascular: normal peripheral pulses, normal rate Abdomen: normal bowel sounds Extremities: no cyanosis, no clubbing, no edema Laboratory Tests noted Assessment/Plan IMPRESSION: 1. History of CML, on dasatinib. 2. Possible pneumonia. 3. Large pleural effusion, s/p thoracentesis. 4. Hypertension. 5. Elevated D-dimer 6. Hypoxemic respiratory failure,on BiPAPPRN DISCUSSION: S/p R thoracentesis, improved after tap x 2 but now again oxygen saturations down BiPAP PRN Diuresis PRN taper oxygen as able broad-spectrum antibiotics. Cardiology following may need PlueRX if fluid recurs- defer to oncology as to life expectance oxygen at high flow and concern for respiratory failure and need for intubation repeat CXR and ABG noted still full code d/w family and update will tap other side- orders written impression, plan, and exam edited and reviewed in detail care discussed with Ho Munroe MD May 31, 2020 16:42
--- NOTE | 2020-05-31 17:55 | Cardiac Electrophysiology PN ---
Assessment/Plan Assessment/Plan 1. Accelerated hypertension. Now off Lisinopril and Lasix for acute renal failure BP stable off any BP meds. On prn Clonidine 2. Troponin leak. Level low and no CP and likely due to renal failure 3. Bilateral pleural effusions. S/P Right side thoracentesis x 2. FU by Dr. Olson. S/P Left thoracentesis again 05/29/20. Now on BIPAP 4. Hyponatremia. 5. CML x 5 years, sees oncologist in [facility] [place] [facility] DCed desatanib (also is the likely cause of pleural effusions) Per Dr Dolan 6. Acute renal failure with sudden JUMP in creatinine to 2.7. FU Dr Carpio. Better after iv fluid, Albumin and off Lasix and Lisinopril. Cr now 1.0 DW RN c Subjective Subjective S/P Right sided thoracentesis ( 1.2 liters of serosanguineous fluid ) on 05/21/20. Had Left thoracentesis and again 1.5 liter Right thoracentesis on 06/25/20 S/P 500 cc Left thoracentesis 05/29/20 On BIPAP now Objective Last 24 Hour Vital Signs Date Time Temp Pulse Resp B/P (MAP) Pulse Ox O2 Delivery O2 Flow Rate FiO2 05/31/20 16:20 Bi-pap 100.0 Bi-pap 100.0 05/31/20 16:00 100 05/31/20 16:00 110 05/31/20 15:54 97.0 89 18 113/75 (88) 100 05/31/20 15:50 106 22 98 100 05/31/20 12:10 100 05/31/20 12:00 15.0 05/31/20 12:00 108 05/31/20 12:00 Bi-pap 100.0 Bi-pap 100.0 05/31/20 12:00 103 34 95 100 05/31/20 12:00 97.3 110 20 153/79 (103) 93 05/31/20 08:00 15.0 05/31/20 08:00 101 05/31/20 08:00 Non-Rebreather 15.0 Non-Rebreather 15.0 05/31/20 08:00 97.2 101 20 145/80 (101) 91 05/31/20 07:25 91 Non-Rebreather 15.0 100 05/31/20 07:23 93 24 91 Non-Rebreather 15.0 100 05/31/20 06:01 94 05/31/20 04:00 15.0 05/31/20 04:00 Non-Rebreather 15.0 Non-Rebreather 15.0 05/31/20 04:00 97.5 97 22 133/80 (97) 97 05/31/20 00:00 15.0 05/31/20 00:00 Non-Rebreather 15.0 Non-Rebreather 15.0 05/31/20 00:00 95 05/31/20 00:00 97.5 97 24 117/67 (84) 97 05/30/20 20:00 99 05/30/20 20:00 15.0 05/30/20 20:00 97.5 98 26 114/70 (85) 97 05/30/20 20:00 Non-Rebreather 15.0 Non-Rebreather 15.0 05/30/20 19:02 103 28 94 Non-Rebreather 15.0 100 05/30/20 19:02 94 Non-Rebreather 15.0 100 Intake and Output 0 05/30/20 05/31/20 19:00 07:00 Intake Total 640 ml 300 ml Output Total 600 ml 450 ml Balance 40 ml -150 ml Intake Oral 640 ml 300 ml Output Urine Total 600 ml 450 ml # Bowel Movements 2 Laboratory Tests Test 05/31/20 12:40 05/31/20 17:10 Arterial Blood pH 7.326 (7.350-7.450) 7.394 (7.350-7.450) Arterial Blood Partial Pressure CO2 59.0 mmHg (35.0-45.0) *H 49.5 mmHg (35.0-45.0) H Arterial Blood Partial Pressure O2 60.0 mmHg (75.0-100.0) L 81.1 mmHg (75.0-100.0) Arterial Blood HCO3 30.1 mmol/L (22.0-26.0) H 29.6 mmol/L (22.0-26.0) H Arterial Blood Oxygen Saturation 88.5 % (95-100) *L 95.3 % (95-100) Arterial Blood Base Excess 2.7 (-2-2) H 3.8 (-2-2) H Sammy Test Positive Positive Objective HEAD AND NECK: No JVD. On Venturi Mask LUNGS: Decreased breath sounds. CARDIOVASCULAR: Regular S1 and S2 and tachycardic. ABDOMEN: Soft. EXTREMITIES: No pitting edema. Cristian England MD May 31, 2020 17:54
[2020-05-31 20:00] VITALS: BP 122/74
--- NOTE | 2020-05-31 20:36 | General Progress Note ---
Subjective ROS Limited/Unobtainable: Yes Allergies: Coded Allergies: No Known Allergies (Unverified , 05/19/20) Objective Last 24 Hour Vital Signs Date Time Temp Pulse Resp B/P (MAP) Pulse Ox O2 Delivery O2 Flow Rate FiO2 05/31/20 16:20 Bi-pap 100.0 Bi-pap 100.0 05/31/20 16:00 100 05/31/20 16:00 110 05/31/20 15:54 97.0 89 18 113/75 (88) 100 05/31/20 15:50 106 22 98 100 05/31/20 12:10 100 05/31/20 12:00 15.0 05/31/20 12:00 108 05/31/20 12:00 Bi-pap 100.0 Bi-pap 100.0 05/31/20 12:00 103 34 95 100 05/31/20 12:00 97.3 110 20 153/79 (103) 93 05/31/20 08:00 15.0 05/31/20 08:00 101 05/31/20 08:00 Non-Rebreather 15.0 Non-Rebreather 15.0 05/31/20 08:00 97.2 101 20 145/80 (101) 91 05/31/20 07:25 91 Non-Rebreather 15.0 100 05/31/20 07:23 93 24 91 Non-Rebreather 15.0 100 05/31/20 06:01 94 05/31/20 04:00 15.0 05/31/20 04:00 Non-Rebreather 15.0 Non-Rebreather 15.0 05/31/20 04:00 97.5 97 22 133/80 (97) 97 05/31/20 00:00 15.0 05/31/20 00:00 Non-Rebreather 15.0 Non-Rebreather 15.0 05/31/20 00:00 95 05/31/20 00:00 97.5 97 24 117/67 (84) 97 Intake and Output 05/30/20 05/31/20 19:00 07:00 Intake Total 640 ml 300 ml Output Total 600 ml 450 ml Balance 40 ml -150 ml Intake Oral 640 ml 300 ml Output Urine Total 600 ml 450 ml # Bowel Movements 2 Laboratory Tests 05/31/20 12:40: Arterial Blood pH 7.326L, Arterial Blood Partial Pressure CO2 59.0*H, Arterial Blood Partial Pressure O2 60.0L, Arterial Blood HCO3 30.1H, Arterial Blood Oxygen Saturation 88.5*L, Arterial Blood Base Excess 2.7H, Sammy Test Positive 05/31/20 17:10: Arterial Blood pH 7.394, Arterial Blood Partial Pressure CO2 49.5H, Arterial Blood Partial Pressure O2 81.1, Arterial Blood HCO3 29.6H, Arterial Blood Oxygen Saturation 95.3, Arterial Blood Base Excess 3.8H, Sammy Test Positive Height (Feet): 5 Height (Inches): 0.00 Weight (Pounds): 100 Assessment/Plan Problem List: (1) Leukemia ICD Codes: C95.90 - Leukemia, unspecified not having achieved remission SNOMED: 09439392 (2) Bilateral pleural effusion ICD Codes: J90 - Pleural effusion, not elsewhere classified SNOMED: 323131870 Status: progressing Assessment/Plan: reviewed chart and labs afebrile s/p thoracocenesis leukemia bilat pleural effusion prn oxygen Tiara Jara MD May 31, 2020 20:36
[2020-06-01] VITALS: BP 133/80
[2020-06-01 04:00] VITALS: BP 114/72
--- NOTE | 2020-06-01 06:46 | Hematology/Onc Progress Note ---
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, sees oncologist in [facility] --> at this time STOP desatanib (also is the likely cause of pleural effusions) --> no is s/p thora per pulm/cards --> wbc trend 18->7->10 --> hgb 11.5->12->13 --> ABX ceftriaxone-->off --> bipap, thora prn --> needs molecular and cytogenectic response for CML, f/u oncologist outpatient # Bilateral pleural effusion --> as per pulm, is on bipap --> thora as needed --> repeat thora prn 05/29 # HTN --> hydralazine and lisinopril --> sbp goal <140 # Dehydration --> goal of euvolemia # Elevated ddimer --> duplex lower ext r/o dvt==>neg # Dvt ppx lovenox sq Appreciate consultation and zachariah RN Subjective Constitutional: Denies: no symptoms, chills, fever, malaise, weakness, other HEENT: Denies: no symptoms, eye pain, blurred vision, tearing, double vision, ear pain, ear discharge, nose pain, nose congestion, throat pain, throat swelling, mouth pain, mouth swelling, other Cardiovascular: Denies: no symptoms, chest pain, edema, irregular heart rate, lightheadedness, palpitations, syncope, other Gastrointestinal/Abdominal: Denies: no symptoms, abdomen distended, abdominal pain, black stools, tarry stools, blood in stool, constipated, diarrhea, difficulty swallowing, nausea, poor appetite, poor fluid intake, rectal bleeding, vomiting, other Genitourinary: Denies: no symptoms, burning, discharge, frequency, flank pain, hematuria, incontinence, pain, urgency, other Neurologic/Psychiatric: Denies: no symptoms, anxiety, depressed, emotional problems, headache, numbness, paresthesia, pre-existing deficit, seizure, tingling, tremors, weakness, other Allergies: Coded Allergies: No Known Allergies (Unverified , 05/19/20) Subjective 05/21 labs are noted, no bleeding, with pleural effusions due to desatanbib, s/p thora 05/22 labs are noted, no bleeding, on bipap, i dw her today to stop her med at once 05/24 wbc is improved, continue on ctx for one more day per id, bipap 05/26 have ordered for repeat cxr this am to reeval pleural effusions, labs noted 05/27 with b/l pleural effusions, aware from pulm, constantin prn 05/28 has been refusing scds, thus will start lovenox today, breathing better s/p thora 05/29 with nonrebreather, for thora today, no night sweats, meds noted 05/31 remains on bipap, meds reviewed, off desatanib, worse effusion r>l 06/01 on bipap this am, labs pending for am Objective Objective Current Medications Medications (Trade) Dose Ordered Sig/Jennie Route PRN Reason Start Time Stop Time Status Last Admin Dose Admin Acetaminophen (Tylenol) 500 mg Q6H PRN ORAL Mild Pain (Pain Scale 1-3) 05/19/20 16:45 06/18/20 16:44 Albuterol/ Ipratropium (Albuterol/ Ipratropium) 3 ml Q4H PRN HHN Shortness of Breath 05/31/20 08:45 06/05/20 08:44 Clonidine HCl (Catapres Tab) 0.1 mg Q4H PRN ORAL SBP > 170 05/24/20 13:15 08/22/20 13:14 Docusate Sodium (Colace) 100 mg TWICE A DAY ORAL 05/22/20 18:00 06/21/20 17:59 05/31/20 09:33 Enoxaparin Sodium (Lovenox) 30 mg DAILY SUBQ 05/28/20 09:00 08/26/20 08:59 05/31/20 09:37 Furosemide (Lasix) 40 mg DAILY ORAL 05/27/20 09:00 06/26/20 08:59 05/31/20 09:33 Pantoprazole (Protonix) 40 mg Q12HR ORAL 05/22/20 21:00 06/21/20 20:59 05/31/20 21:21 Last 24 Hour Vital Signs Date Time Temp Pulse Resp B/P (MAP) Pulse Ox O2 Delivery O2 Flow Rate FiO2 06/01/20 04:00 103 06/01/20 04:00 100 06/01/20 04:00 98.4 107 35 114/72 (86) 96 06/01/20 04:00 Bi-pap 100.0 Bi-pap 100.0 Bi-pap 06/01/20 03:28 105 21 94 100 06/01/20 00:00 98.1 102 34 133/80 (97) 94 06/01/20 00:00 Bi-pap 100.0 Bi-pap 100.0 Bi-pap 06/01/20 00:00 106 06/01/20 00:00 100 05/31/20 23:30 98 30 97 100 05/31/20 20:00 98.0 103 24 122/74 (90) 95 05/31/20 20:00 Bi-pap 100.0 Bi-pap 100.0 Bi-pap 05/31/20 20:00 100 05/31/20 19:35 95 Bi-Pap 100 05/31/20 19:35 102 31 95 Bi-Pap 100 05/31/20 19:32 100 05/31/20 19:30 102 31 95 100 05/31/20 16:20 Bi-pap 100.0 Bi-pap 100.0 05/31/20 16:00 100 05/31/20 16:00 110 05/31/20 15:54 97.0 89 18 113/75 (88) 100 05/31/20 15:50 106 22 98 100 05/31/20 12:10 100 05/31/20 12:00 15.0 05/31/20 12:00 108 05/31/20 12:00 Bi-pap 100.0 Bi-pap 100.0 05/31/20 12:00 103 34 95 100 05/31/20 12:00 97.3 110 20 153/79 (103) 93 05/31/20 08:00 15.0 05/31/20 08:00 101 05/31/20 08:00 Non-Rebreather 15.0 Non-Rebreather 15.0 05/31/20 08:00 97.2 101 20 145/80 (101) 91 05/31/20 07:25 91 Non-Rebreather 15.0 100 05/31/20 07:23 93 24 91 Non-Rebreather 15.0 100 05/31/20 06:01 94 05/31/20 04:00 15.0 05/31/20 04:00 Non-Rebreather 15.0 Non-Rebreather 15.0 05/31/20 04:00 97.5 97 22 133/80 (97) 97 05/31/20 00:00 15.0 05/31/20 00:00 Non-Rebreather 15.0 Non-Rebreather 15.0 05/31/20 00:00 95 05/31/20 00:00 97.5 97 24 117/67 (84) 97 05/30/20 20:00 99 05/30/20 20:00 15.0 05/30/20 20:00 97.5 98 26 114/70 (85) 97 05/30/20 20:00 Non-Rebreather 15.0 Non-Rebreather 15.0 05/30/20 19:02 103 28 94 Non-Rebreather 15.0 100 05/30/20 19:02 94 Non-Rebreather 15.0 100 05/30/20 16:00 15.0 05/30/20 16:00 102 05/30/20 16:00 97.7 98 24 136/72 (93) 96 05/30/20 16:00 Non-Rebreather 15.0 Non-Rebreather 15.0 05/30/20 12:00 95 05/30/20 12:00 Non-Rebreather 15.0 Non-Rebreather 15.0 05/30/20 12:00 97.7 99 24 138/72 (94) 95 05/30/20 12:00 15.0 05/30/20 08:05 94 Non-Rebreather 15.0 100 05/30/20 08:00 15.0 05/30/20 08:00 97.2 101 24 130/68 (88) 95 05/30/20 08:00 104 05/30/20 08:00 Non-Rebreather 15.0 Non-Rebreather 15.0 05/30/20 08:00 94 22 94 Non-Rebreather 15.0 100 Intake and Output 05/31/20 06/01/20 19:00 07:00 Intake Total 600 ml 700 ml Output Total 450 ml 875 ml Balance 150 ml -175 ml Intake Oral 600 ml 700 ml Output Urine Total 450 ml 875 ml Labs Test 05/30/20 04:10 05/31/20 12:40 05/31/20 17:10 White Blood Count 10.6 K/UL (4.8-10.8) Red Blood Count 4.60 M/UL (4.20-5.40) Hemoglobin 13.3 G/DL (12.0-16.0) Hematocrit 40.2 % (37.0-47.0) Mean Corpuscular Volume 87 FL (80-99) Mean Corpuscular Hemoglobin 28.9 PG (27.0-31.0) Mean Corpuscular Hemoglobin Concent 33.1 G/DL (32.0-36.0) Red Cell Distribution Width 14.1 % (11.6-14.8) Platelet Count 393 K/UL (150-450) Mean Platelet Volume 6.0 FL (6.5-10.1) Neutrophils (%) (Auto) 71.3 % (45.0-75.0) Lymphocytes (%) (Auto) 10.7 % (20.0-45.0) Monocytes (%) (Auto) 12.0 % (1.0-10.0) Eosinophils (%) (Auto) 3.9 % (0.0-3.0) Basophils (%) (Auto) 2.2 % (0.0-2.0) Sodium Level 138 MMOL/L (136-145) Potassium Level 4.4 MMOL/L (3.5-5.1) Chloride Level 100 MMOL/L (98-107) Carbon Dioxide Level 31 MMOL/L (21-32) Anion Gap 7 mmol/L (5-15) Blood Urea Nitrogen 57 mg/dL (7-18) Creatinine 1.2 MG/DL (0.55-1.30) Estimat Glomerular Filtration Rate 45.7 mL/min (>60) Glucose Level 202 MG/DL (74-106) Calcium Level 9.1 MG/DL (8.5-10.1) Phosphorus Level 4.0 MG/DL (2.5-4.9) Magnesium Level 2.3 MG/DL (1.8-2.4) Total Bilirubin 0.3 MG/DL (0.2-1.0) Aspartate Amino Transf (AST/SGOT) 23 U/L (15-37) Alanine Aminotransferase (ALT/SGPT) 14 U/L (12-78) Alkaline Phosphatase 59 U/L (46-116) C-Reactive Protein, Quantitative 15.2 mg/dL (0.00-0.90) Pro-B-Type Natriuretic Peptide 1127 pg/mL (0-125) Total Protein 6.7 G/DL (6.4-8.2) Albumin 2.2 G/DL (3.4-5.0) Globulin 4.5 g/dL Albumin/Globulin Ratio 0.5 (1.0-2.7) Arterial Blood pH 7.326 (7.350-7.450) 7.394 (7.350-7.450) Arterial Blood Partial Pressure CO2 59.0 mmHg (35.0-45.0) 49.5 mmHg (35.0-45.0) Arterial Blood Partial Pressure O2 60.0 mmHg (75.0-100.0) 81.1 mmHg (75.0-100.0) Arterial Blood HCO3 30.1 mmol/L (22.0-26.0) 29.6 mmol/L (22.0-26.0) Arterial Blood Oxygen Saturation 88.5 % (95-100) 95.3 % (95-100) Arterial Blood Base Excess 2.7 (-2-2) 3.8 (-2-2) Sammy Test Positive Positive Height (Feet): 5 Height (Inches): 0.00 Weight (Pounds): 100 Dionicio Higgins MD Jun 01, 2020 06:46
[2020-06-01 07:22] LABS: HEMATOCRIT 40.1 % (37.0-47.0); HEMOGLOBIN 12.9 G/DL (12.0-16.0); MEAN CORPUSCULAR VOLUME 87 FL (80-99); PLATELET COUNT 408 K/UL (150-450); RED BLOOD COUNT 4.62 M/UL (4.20-5.40)
[2020-06-01 08:00] VITALS: BP_SYST 110; BP_SYST 138; BP_DIAS 100; BP_DIAS 76
[2020-06-01 08:00] LABS: ALBUMIN 2.4 G/DL (3.4-5.0); ALBUMIN/GLOBULIN RATIO 0.5 (1.0-2.7); BILIRUBIN,TOTAL 0.3 MG/DL (0.2-1.0); CALCIUM 9.5 MG/DL (8.5-10.1); CREATININE 1.3 MG/DL (0.55-1.30); PHOSPHORUS 4.2 MG/DL (2.5-4.9); POTASSIUM 4.4 MMOL/L (3.5-5.1)
[2020-06-01] MEDS: Docusate 100mg cap ORAL SCH ×2 (09:59→17:13)
[2020-06-01] MEDS: Furosemide 40mg tab ORAL SCH ×2 (09:59→17:14)
[2020-06-01] MEDS: Enoxaparin 30mg Inj SUBQ SCH (10:00)
--- NOTE | 2020-06-01 10:28 | Nephrology Progress Note ---
Assessment/Plan Problem List: (1) ASHLEY (acute kidney injury) (2) Bilateral pleural effusion (3) Leukemia Assessment Imp: Acute renal failure, with sudden jump in serum creatinine to 2.7 History of leukemia Hypertension, now hypotensive Hyponatremia on admission, improved Bilateral pleural effusion. Status post paracentesis. Elevated troponin, most likely leak. Plan June 01: Labs reviewed. Status unchanged. Remains on nonrebreathing mask. Will increase his Lasix to 40 twice daily. Stable electrolytes and renal parameters at this time. May 31: No chemistry panel done today. Patient still on nonrebreathing mask. Patient full code. Will check lab tomorrow. Patient's main issue is respiratory. May 30: Labs reviewed. Renal parameters stable. Continue per pulmonary. May 29: No chemistry panel done today. Remains on nonrebreather mask. Will order labs tomorrow. Continue per consultants. May 28: Serum creatinine up to 1.5. Remains on nonrebreather mask. Since admission had 3 thoracenteses for pleural effusion over the left and right. Res piratory status remains unstable. Continue per pulmonary. Will watch renal parameters. May 27: When seen the patient was on 100% nonrebreather mask. Renal panel within normal limit. Continue per consultants. Main problem remains respiratory. May 26: Renal parameters stable. Started on Lasix 40 mg daily. Continue to monitor renal parameters and electrolytes. Continue per consultants. May 25: Renal parameters within normal limit. Another dose of IV Lasix given. Continue to monitor electrolytes. Continue per consultants. May 24: Renal parameters normalized. Will give the Lasix 40 mg IV once. 1 dose of Kayexalate for hyperkalemia. Continue to monitor renal parameters. Previously: Today renal parameters are improved. Serum creatinine down to 1.6 from 2.7 Continue to hold lisinopril Continue to hold Lasix Half Normal saline 100 cc an hour one liter only was given yesterday Albumin bolus given yesterday, repeat as needed Monitor renal parameters Avoid nephrotoxic's Subjective ROS Limited/Unobtainable: No Constitutional: Reports: malaise, weakness Objective Objective Last 24 Hour Vital Signs Date Time Temp Pulse Resp B/P (MAP) Pulse Ox O2 Delivery O2 Flow Rate FiO2 06/01/20 08:00 Bi-pap 100.0 Bi-pap 100.0 Bi-pap 06/01/20 08:00 97.0 104 33 110/76 (87) 96 06/01/20 04:00 103 06/01/20 04:00 100 06/01/20 04:00 98.4 107 35 114/72 (86) 96 06/01/20 04:00 Bi-pap 100.0 Bi-pap 100.0 Bi-pap 06/01/20 03:28 105 21 94 100 06/01/20 00:00 98.1 102 34 133/80 (97) 94 06/01/20 00:00 Bi-pap 100.0 Bi-pap 100.0 Bi-pap 06/01/20 00:00 106 06/01/20 00:00 100 05/31/20 23:30 98 30 97 100 05/31/20 20:00 98.0 103 24 122/74 (90) 95 05/31/20 20:00 Bi-pap 100.0 Bi-pap 100.0 Bi-pap 05/31/20 20:00 100 05/31/20 19:35 95 Bi-Pap 100 05/31/20 19:35 102 31 95 Bi-Pap 100 05/31/20 19:32 100 05/31/20 19:30 102 31 95 100 05/31/20 16:20 Bi-pap 100.0 Bi-pap 100.0 05/31/20 16:00 100 05/31/20 16:00 110 05/31/20 15:54 97.0 89 18 113/75 (88) 100 05/31/20 15:50 106 22 98 100 05/31/20 12:10 100 05/31/20 12:00 15.0 05/31/20 12:00 108 05/31/20 12:00 Bi-pap 100.0 Bi-pap 100.0 05/31/20 12:00 103 34 95 100 05/31/20 12:00 97.3 110 20 153/79 (103) 93 Intake and Output 05/31/20 06/01/20 19:00 07:00 Intake Total 600 ml 700 ml Output Total 450 ml 875 ml Balance 150 ml -175 ml Intake Oral 600 ml 700 ml Output Urine Total 450 ml 875 ml Laboratory Tests 05/31/20 12:40: Arterial Blood pH 7.326L, Arterial Blood Partial Pressure CO2 59.0*H, Arterial Blood Partial Pressure O2 60.0L, Arterial Blood HCO3 30.1H, Arterial Blood Oxygen Saturation 88.5*L, Arterial Blood Base Excess 2.7H, Sammy Test Positive 05/31/20 17:10: Arterial Blood pH 7.394, Arterial Blood Partial Pressure CO2 49.5H, Arterial Blood Partial Pressure O2 81.1, Arterial Blood HCO3 29.6H, Arterial Blood Oxygen Saturation 95.3, Arterial Blood Base Excess 3.8H, Sammy Test Positive 06/01/20 05:27: White Blood Count 13.0H, Red Blood Count 4.62, Hemoglobin 12.9, Hematocrit 40.1, Mean Corpuscular Volume 87, Mean Corpuscular Hemoglobin 28.0, Mean Corpuscular Hemoglobin Concent 32.2, Red Cell Distribution Width 14.0, Platelet Count 408, Mean Platelet Volume 5.9L, Neutrophils (%) (Auto) , Lymphocytes (%) (Auto) , Monocytes (%) (Auto) , Eosinophils (%) (Auto) , Basophils (%) (Auto) , Differential Total Cells Counted 100, Neutrophils % (Manual) 92H, Lymphocytes % (Manual) 3L, Monocytes % (Manual) 4, Eosinophils % (Manual) 1, Basophils % (Manual) 0, Band Neutrophils 0, Platelet Estimate Adequate, Platelet Morphology Normal, Red Blood Cell Morphology Normal, Sodium Level 136, Potassium Level 4.4, Chloride Level 99, Carbon Dioxide Level 29, Anion Gap 8, Blood Urea Nitrogen 53H , Creatinine 1.3, Estimat Glomerular Filtration Rate 41.6, Glucose Level 212H, Calcium Level 9.5, Phosphorus Level 4.2, Magnesium Level 2.3, Total Bilirubin 0.3, Aspartate Amino Transf (AST/SGOT) 24, Alanine Aminotransferase (ALT/SGPT) 17, Alkaline Phosphatase 67, C-Reactive Protein, Quantitative 18.9H, Total Protein 7.1, Albumin 2.4L, Globulin 4.7, Albumin/Globulin Ratio 0.5L Height (Feet): 5 Height (Inches): 0.00 Weight (Pounds): 100 General Appearance: mild distress EENT: other - On nonrebreather mask Respiratory/Chest: decreased breath sounds Abdomen: distended Montrell Carpio MD Jun 01, 2020 10:28
--- NOTE | 2020-06-01 10:55 | Pulmonology Progress Note ---
Subjective ROS Limited/Unobtainable: No Interval Events: Remains on BiPAp HEENT: Repors: no symptoms Respiratory: Reports: dry cough Gastrointestinal/Abdominal: Reports: no symptoms Genitourinary: Reports: no symptoms Neurologic: Reports: no symptoms Musculoskeletal: Denies: pain Allergies: Coded Allergies: No Known Allergies (Unverified , 05/19/20) Objective Last 24 Hour Vital Signs Date Time Temp Pulse Resp B/P (MAP) Pulse Ox O2 Delivery O2 Flow Rate FiO2 06/01/20 08:00 Bi-pap 100.0 Bi-pap 100.0 Bi-pap 06/01/20 08:00 97.0 104 33 110/76 (87) 96 06/01/20 07:15 101 35 97 100 06/01/20 07:15 101 35 97 Bi-Pap 100 06/01/20 07:15 97 Bi-Pap 100 06/01/20 04:00 103 06/01/20 04:00 100 06/01/20 04:00 98.4 107 35 114/72 (86) 96 06/01/20 04:00 Bi-pap 100.0 Bi-pap 100.0 Bi-pap 06/01/20 03:28 105 21 94 100 06/01/20 00:00 98.1 102 34 133/80 (97) 94 06/01/20 00:00 Bi-pap 100.0 Bi-pap 100.0 Bi-pap 06/01/20 00:00 106 06/01/20 00:00 100 05/31/20 23:30 98 30 97 100 05/31/20 20:00 98.0 103 24 122/74 (90) 95 05/31/20 20:00 Bi-pap 100.0 Bi-pap 100.0 Bi-pap 05/31/20 20:00 100 05/31/20 19:35 95 Bi-Pap 100 05/31/20 19:35 102 31 95 Bi-Pap 100 05/31/20 19:32 100 05/31/20 19:30 102 31 95 100 05/31/20 16:20 Bi-pap 100.0 Bi-pap 100.0 05/31/20 16:00 100 05/31/20 16:00 110 05/31/20 15:54 97.0 89 18 113/75 (88) 100 05/31/20 15:50 106 22 98 100 05/31/20 12:10 100 05/31/20 12:00 15.0 05/31/20 12:00 108 05/31/20 12:00 Bi-pap 100.0 Bi-pap 100.0 05/31/20 12:00 103 34 95 100 05/31/20 12:00 97.3 110 20 153/79 (103) 93 Intake and Output 05/31/20 06/01/20 19:00 07:00 Intake Total 600 ml 700 ml Output Total 450 ml 875 ml Balance 150 ml -175 ml Intake Oral 600 ml 700 ml Output Urine Total 450 ml 875 ml General Appearance: no acute distress Respiratory: chest wall non-tender, normal breath sounds, no respiratory distress, no accessory muscle use, decreased breath sounds Cardiovascular: normal peripheral pulses, normal rate Abdomen: normal bowel sounds Extremities: no cyanosis, no clubbing, no edema Laboratory Tests 05/31/20 12:40: Arterial Blood pH 7.326L, Arterial Blood Partial Pressure CO2 59.0*H, Arterial Blood Partial Pressure O2 60.0L, Arterial Blood HCO3 30.1H, Arterial Blood Oxygen Saturation 88.5*L, Arterial Blood Base Excess 2.7H, Sammy Test Positive 05/31/20 17:10: Arterial Blood pH 7.394, Arterial Blood Partial Pressure CO2 49.5H, Arterial Blood Partial Pressure O2 81.1, Arterial Blood HCO3 29.6H, Arterial Blood Oxygen Saturation 95.3, Arterial Blood Base Excess 3.8H, Sammy Test Positive 06/01/20 05:27: White Blood Count 13.0H, Red Blood Count 4.62, Hemoglobin 12.9, Hematocrit 40.1, Mean Corpuscular Volume 87, Mean Corpuscular Hemoglobin 28.0, Mean Corpuscular Hemoglobin Concent 32.2, Red Cell Distribution Width 14.0, Platelet Count 408, Mean Platelet Volume 5.9L, Neutrophils (%) (Auto) , Lymphocytes (%) (Auto) , Monocytes (%) (Auto) , Eosinophils (%) (Auto) , Basophils (%) (Auto) , Differential Total Cells Counted 100, Neutrophils % (Manual) 92H, Lymphocytes % (Manual) 3L, Monocytes % (Manual) 4, Eosinophils % (Manual) 1, Basophils % (Manual) 0, Band Neutrophils 0, Platelet Estimate Adequate, Platelet Morphology Normal, Red Blood Cell Morphology Normal, Sodium Level 136, Potassium Level 4.4, Chloride Level 99, Carbon Dioxide Level 29, Anion Gap 8, Blood Urea Nitrogen 53H , Creatinine 1.3, Estimat Glomerular Filtration Rate 41.6, Glucose Level 212H, Calcium Level 9.5, Phosphorus Level 4.2, Magnesium Level 2.3, Total Bilirubin 0.3, Aspartate Amino Transf (AST/SGOT) 24, Alanine Aminotransferase (ALT/SGPT) 17, Alkaline Phosphatase 67, C-Reactive Protein, Quantitative 18.9H, Total Protein 7.1, Albumin 2.4L, Globulin 4.7, Albumin/Globulin Ratio 0.5L Current Medications Medications (Trade) Dose Ordered Sig/Jennie Route PRN Reason Start Time Stop Time Status Last Admin Dose Admin Acetaminophen (Tylenol) 500 mg Q6H PRN ORAL Mild Pain (Pain Scale 1-3) 05/19/20 16:45 06/18/20 16:44 Albuterol/ Ipratropium (Albuterol/ Ipratropium) 3 ml Q4H PRN HHN Shortness of Breath 05/31/20 08:45 06/05/20 08:44 Clonidine HCl (Catapres Tab) 0.1 mg Q4H PRN ORAL SBP > 170 05/24/20 13:15 08/22/20 13:14 Docusate Sodium (Colace) 100 mg TWICE A DAY ORAL 05/22/20 18:00 06/21/20 17:59 06/01/20 09:59 Enoxaparin Sodium (Lovenox) 30 mg DAILY SUBQ 05/28/20 09:00 08/26/20 08:59 06/01/20 10:00 Furosemide (Lasix) 40 mg BID ORAL 06/01/20 18:00 06/26/20 08:59 Pantoprazole (Protonix) 40 mg Q12HR ORAL 05/22/20 21:00 06/21/20 20:59 06/01/20 09:58 Assessment/Plan Assessment/Plan IMPRESSION: 1. History of CML, on dasatinib. 2. Possible pneumonia. 3. Large pleural effusion, s/p thoracentesis. 4. Hypertension. 5. Elevated D-dimer DISCUSSION: S/p Bilateral thoracentesis, CXR much improved; Unable to wean off BiPAP; will attempt again today Agree with broad-spectrum antibiotics. Michelet Hernandez Omar Syed MD Jun 01, 2020 10:55
--- NOTE | 2020-06-01 11:22 | Infectious Diseases Prog Note ---
Assessment/Plan Assessment/Plan IMPRESSION: Leukocytosis, systemic inflammatory response syndrome or sepsis, Recurrent pleural effusion, CML, Accelerated hypertension, Elevation of troponin. Hypoxemia RECOMMENDATION: Start on PO Levaquin May need pleurodesis Subjective ROS Limited/Unobtainable: No Constitutional: Reports: no symptoms Respiratory: Reports: shortness of breath Gastrointestinal/Abdominal: Reports: no symptoms Genitourinary: Reports: no symptoms Allergies: Coded Allergies: No Known Allergies (Unverified , 05/19/20) Objective Last 24 Hour Vital Signs Date Time Temp Pulse Resp B/P (MAP) Pulse Ox O2 Delivery O2 Flow Rate FiO2 06/01/20 08:00 Bi-pap 100.0 Bi-pap 100.0 Bi-pap 06/01/20 08:00 97.0 104 33 110/76 (87) 96 06/01/20 07:26 102 06/01/20 07:15 101 35 97 100 06/01/20 07:15 101 35 97 Bi-Pap 100 06/01/20 07:15 97 Bi-Pap 100 06/01/20 04:00 103 06/01/20 04:00 100 06/01/20 04:00 98.4 107 35 114/72 (86) 96 06/01/20 04:00 Bi-pap 100.0 Bi-pap 100.0 Bi-pap 06/01/20 03:28 105 21 94 100 06/01/20 00:00 98.1 102 34 133/80 (97) 94 06/01/20 00:00 Bi-pap 100.0 Bi-pap 100.0 Bi-pap 06/01/20 00:00 106 06/01/20 00:00 100 05/31/20 23:30 98 30 97 100 05/31/20 20:00 98.0 103 24 122/74 (90) 95 05/31/20 20:00 Bi-pap 100.0 Bi-pap 100.0 Bi-pap 05/31/20 20:00 100 05/31/20 19:35 95 Bi-Pap 100 05/31/20 19:35 102 31 95 Bi-Pap 100 05/31/20 19:32 100 05/31/20 19:30 102 31 95 100 05/31/20 16:20 Bi-pap 100.0 Bi-pap 100.0 05/31/20 16:00 100 05/31/20 16:00 110 05/31/20 15:54 97.0 89 18 113/75 (88) 100 05/31/20 15:50 106 22 98 100 05/31/20 12:10 100 05/31/20 12:00 15.0 05/31/20 12:00 108 05/31/20 12:00 Bi-pap 100.0 Bi-pap 100.0 05/31/20 12:00 103 34 95 100 05/31/20 12:00 97.3 110 20 153/79 (103) 93 Height (Feet): 5 Height (Inches): 0.00 Weight (Pounds): 100 General Appearance: no acute distress HEENT: mucous membranes moist Respiratory/Chest: decreased breath sounds, other - oxygen by rebreathing mask Cardiovascular: tachycardia Abdomen: soft, non tender Extremities: no edema Neurologic/Psychiatric: alert, oriented x 3, responsive Laboratory Tests Test 05/31/20 12:40 05/31/20 17:10 06/01/20 05:27 Arterial Blood pH 7.326 (7.350-7.450) 7.394 (7.350-7.450) Arterial Blood Partial Pressure CO2 59.0 mmHg (35.0-45.0) *H 49.5 mmHg (35.0-45.0) H Arterial Blood Partial Pressure O2 60.0 mmHg (75.0-100.0) L 81.1 mmHg (75.0-100.0) Arterial Blood HCO3 30.1 mmol/L (22.0-26.0) H 29.6 mmol/L (22.0-26.0) H Arterial Blood Oxygen Saturation 88.5 % (95-100) *L 95.3 % (95-100) Arterial Blood Base Excess 2.7 (-2-2) H 3.8 (-2-2) H Sammy Test Positive Positive White Blood Count 13.0 K/UL (4.8-10.8) H Red Blood Count 4.62 M/UL (4.20-5.40) Hemoglobin 12.9 G/DL (12.0-16.0) Hematocrit 40.1 % (37.0-47.0) Mean Corpuscular Volume 87 FL (80-99) Mean Corpuscular Hemoglobin 28.0 PG (27.0-31.0) Mean Corpuscular Hemoglobin Concent 32.2 G/DL (32.0-36.0) Red Cell Distribution Width 14.0 % (11.6-14.8) Platelet Count 408 K/UL (150-450) Mean Platelet Volume 5.9 FL (6.5-10.1) L Neutrophils (%) (Auto) % (45.0-75.0) Lymphocytes (%) (Auto) % (20.0-45.0) Monocytes (%) (Auto) % (1.0-10.0) Eosinophils (%) (Auto) % (0.0-3.0) Basophils (%) (Auto) % (0.0-2.0) Differential Total Cells Counted 100 Neutrophils % (Manual) 92 % (45-75) H Lymphocytes % (Manual) 3 % (20-45) L Monocytes % (Manual) 4 % (1-10) Eosinophils % (Manual) 1 % (0-3) Basophils % (Manual) 0 % (0-2) Band Neutrophils 0 % (0-8) Platelet Estimate Adequate Platelet Morphology Normal Red Blood Cell Morphology Normal Sodium Level 136 MMOL/L (136-145) Potassium Level 4.4 MMOL/L (3.5-5.1) Chloride Level 99 MMOL/L (98-107) Carbon Dioxide Level 29 MMOL/L (21-32) Anion Gap 8 mmol/L (5-15) Blood Urea Nitrogen 53 mg/dL (7-18) H Creatinine 1.3 MG/DL (0.55-1.30) Estimat Glomerular Filtration Rate 41.6 mL/min (>60) Glucose Level 212 MG/DL (74-106) H Calcium Level 9.5 MG/DL (8.5-10.1) Phosphorus Level 4.2 MG/DL (2.5-4.9) Magnesium Level 2.3 MG/DL (1.8-2.4) Total Bilirubin 0.3 MG/DL (0.2-1.0) Aspartate Amino Transf (AST/SGOT) 24 U/L (15-37) Alanine Aminotransferase (ALT/SGPT) 17 U/L (12-78) Alkaline Phosphatase 67 U/L (46-116) C-Reactive Protein, Quantitative 18.9 mg/dL (0.00-0.90) H Total Protein 7.1 G/DL (6.4-8.2) Albumin 2.4 G/DL (3.4-5.0) L Globulin 4.7 g/dL Albumin/Globulin Ratio 0.5 (1.0-2.7) L Current Medications Medications (Trade) Dose Ordered Sig/Jennie Route PRN Reason Start Time Stop Time Status Last Admin Dose Admin Acetaminophen (Tylenol) 500 mg Q6H PRN ORAL Mild Pain (Pain Scale 1-3) 05/19/20 16:45 06/18/20 16:44 Albuterol/ Ipratropium (Albuterol/ Ipratropium) 3 ml Q4H PRN HHN Shortness of Breath 05/31/20 08:45 06/05/20 08:44 Clonidine HCl (Catapres Tab) 0.1 mg Q4H PRN ORAL SBP > 170 05/24/20 13:15 08/22/20 13:14 Docusate Sodium (Colace) 100 mg TWICE A DAY ORAL 05/22/20 18:00 06/21/20 17:59 06/01/20 09:59 Enoxaparin Sodium (Lovenox) 30 mg DAILY SUBQ 05/28/20 09:00 08/26/20 08:59 06/01/20 10:00 Furosemide (Lasix) 40 mg BID ORAL 06/01/20 18:00 06/26/20 08:59 Metolazone (Zaroxolyn) 5 mg DAILY ORAL 06/01/20 12:00 07/01/20 11:59 Pantoprazole (Protonix) 40 mg Q12HR ORAL 05/22/20 21:00 06/21/20 20:59 06/01/20 09:58 Timothy Pennington MD Jun 01, 2020 11:22
[2020-06-01] MEDS ORDERED: Levofloxacin 500mg tab ORAL SCH (11:45)
[2020-06-01 11:56] VITALS: BP 106/57
--- NOTE | 2020-06-01 14:19 | Cardiac Electrophysiology PN ---
Assessment/Plan Assessment/Plan 1. Accelerated hypertension. Now off Lisinopril for acute renal failure On Lasix 40 po daily and prn Clonidine 2. Troponin leak. Level low and no CP and likely due to renal failure 3. Bilateral pleural effusions. S/P Right side thoracentesis x 2. FU by Dr. Olson. S/P Left thoracentesis again x2 last one 05/29/20. Now on NRB FM 4. Hyponatremia. 5. CML x 5 years, [facility] area DCed desatanib (also is the likely cause of pleural effusions) Per Dr Dolan 6. Acute renal failure with sudden JUMP in creatinine to 2.7. FU Dr Carpio. Better after iv fluid, Albumin and off Lisinopril. Cr now 1.0 DW RN c Subjective Subjective S/P 2 Right sided thoracentesis ( 1.2 liters of serosanguineous fluid ) on 05/21/20 and 05/26/20 S/P 2 Left thoracentesis last one 05/29/20 BIPAP changed to 100% NRB FM again today Objective Last 24 Hour Vital Signs Date Time Temp Pulse Resp B/P (MAP) Pulse Ox O2 Delivery O2 Flow Rate FiO2 06/01/20 12:00 15.0 06/01/20 12:00 Bi-pap 15.0 Non-Rebreather 15.0 Non-Rebreather 06/01/20 11:56 96.1 106 31 106/57 (73) 98 06/01/20 11:51 100 06/01/20 08:00 100 06/01/20 08:00 Bi-pap 100.0 Bi-pap 100.0 Bi-pap 06/01/20 08:00 97.0 104 33 110/76 (87) 96 06/01/20 07:26 102 06/01/20 07:15 101 35 97 100 06/01/20 07:15 101 35 97 Bi-Pap 100 06/01/20 07:15 97 Bi-Pap 100 06/01/20 04:00 103 06/01/20 04:00 100 06/01/20 04:00 98.4 107 35 114/72 (86) 96 06/01/20 04:00 Bi-pap 100.0 Bi-pap 100.0 Bi-pap 06/01/20 03:28 105 21 94 100 10/5/20 00:00 98.1 102 34 133/80 (97) 94 06/01/20 00:00 Bi-pap 100.0 Bi-pap 100.0 Bi-pap 06/01/20 00:00 106 06/01/20 00:00 100 05/31/20 23:30 98 30 97 100 05/31/20 20:00 98.0 103 24 122/74 (90) 95 05/31/20 20:00 Bi-pap 100.0 Bi-pap 100.0 Bi-pap 05/31/20 20:00 100 05/31/20 19:35 95 Bi-Pap 100 05/31/20 19:35 102 31 95 Bi-Pap 100 05/31/20 19:32 100 05/31/20 19:30 102 31 95 100 05/31/20 16:20 Bi-pap 100.0 Bi-pap 100.0 05/31/20 16:00 100 05/31/20 16:00 110 05/31/20 15:54 97.0 89 18 113/75 (88) 100 05/31/20 15:50 106 22 98 100 Intake and Output 05/31/20 06/01/20 19:00 07:00 Intake Total 600 ml 700 ml Output Total 450 ml 875 ml Balance 150 ml -175 ml Intake Oral 600 ml 700 ml Output Urine Total 450 ml 875 ml Laboratory Tests Test 05/31/20 17:10 06/01/20 05:27 Arterial Blood pH 7.394 (7.350-7.450) Arterial Blood Partial Pressure CO2 49.5 mmHg (35.0-45.0) H Arterial Blood Partial Pressure O2 81.1 mmHg (75.0-100.0) Arterial Blood HCO3 29.6 mmol/L (22.0-26.0) H Arterial Blood Oxygen Saturation 95.3 % (95-100) Arterial Blood Base Excess 3.8 (-2-2) H Sammy Test Positive White Blood Count 13.0 K/UL (4.8-10.8) H Red Blood Count 4.62 M/UL (4.20-5.40) Hemoglobin 12.9 G/DL (12.0-16.0) Hematocrit 40.1 % (37.0-47.0) Mean Corpuscular Volume 87 FL (80-99) Mean Corpuscular Hemoglobin 28.0 PG (27.0-31.0) Mean Corpuscular Hemoglobin Concent 32.2 G/DL (32.0-36.0) Red Cell Distribution Width 14.0 % (11.6-14.8) Platelet Count 408 K/UL (150-450) Mean Platelet Volume 5.9 FL (6.5-10.1) L Neutrophils (%) (Auto) % (45.0-75.0) Lymphocytes (%) (Auto) % (20.0-45.0) Monocytes (%) (Auto) % (1.0-10.0) Eosinophils (%) (Auto) % (0.0-3.0) Basophils (%) (Auto) % (0.0-2.0) Differential Total Cells Counted 100 Neutrophils % (Manual) 92 % (45-75) H Lymphocytes % (Manual) 3 % (20-45) L Monocytes % (Manual) 4 % (1-10) Eosinophils % (Manual) 1 % (0-3) Basophils % (Manual) 0 % (0-2) Band Neutrophils 0 % (0-8) Platelet Estimate Adequate Platelet Morphology Normal Red Blood Cell Morphology Normal Sodium Level 136 MMOL/L (136-145) Potassium Level 4.4 MMOL/L (3.5-5.1) Chloride Level 99 MMOL/L (98-107) Carbon Dioxide Level 29 MMOL/L (21-32) Anion Gap 8 mmol/L (5-15) Blood Urea Nitrogen 53 mg/dL (7-18) H Creatinine 1.3 MG/DL (0.55-1.30) Estimat Glomerular Filtration Rate 41.6 mL/min (>60) Glucose Level 212 MG/DL (74-106) H Calcium Level 9.5 MG/DL (8.5-10.1) Phosphorus Level 4.2 MG/DL (2.5-4.9) Magnesium Level 2.3 MG/DL (1.8-2.4) Total Bilirubin 0.3 MG/DL (0.2-1.0) Aspartate Amino Transf (AST/SGOT) 24 U/L (15-37) Alanine Aminotransferase (ALT/SGPT) 17 U/L (12-78) Alkaline Phosphatase 67 U/L (46-116) C-Reactive Protein, Quantitative 18.9 mg/dL (0.00-0.90) H Total Protein 7.1 G/DL (6.4-8.2) Albumin 2.4 G/DL (3.4-5.0) L Globulin 4.7 g/dL Albumin/Globulin Ratio 0.5 (1.0-2.7) L Objective HEAD AND NECK: No JVD. On Venturi Mask LUNGS: Decreased breath sounds. CARDIOVASCULAR: Regular S1 and S2 and tachycardic. ABDOMEN: Soft. EXTREMITIES: No pitting edema. Cristian England MD Jun 01, 2020 14:19
[2020-06-01 16:00] VITALS: BP 124/72
[2020-06-01 20:00] VITALS: BP 135/80
--- NOTE | 2020-06-01 21:56 | General Progress Note ---
Subjective Allergies: Coded Allergies: No Known Allergies (Unverified , 05/19/20) Objective Last 24 Hour Vital Signs Date Time Temp Pulse Resp B/P (MAP) Pulse Ox O2 Delivery O2 Flow Rate FiO2 06/01/20 20:51 15.0 06/01/20 20:00 98.1 101 24 135/80 (98) 94 06/01/20 19:12 93 Non-Rebreather 15.0 100 06/01/20 19:12 105 26 97 Non-Rebreather 15.0 100 06/01/20 16:00 96.4 95 26 124/72 (89) 95 06/01/20 16:00 15.0 06/01/20 15:55 Bi-pap 15.0 Non-Rebreather 15.0 Non-Rebreather 06/01/20 15:15 98 06/01/20 12:00 15.0 06/01/20 12:00 Bi-pap 15.0 Non-Rebreather 15.0 Non-Rebreather 06/01/20 11:56 96.1 106 31 106/57 (73) 98 06/01/20 11:51 100 06/01/20 11:15 99 98 06/01/20 08:00 100 06/01/20 08:00 Bi-pap 100.0 Bi-pap 100.0 Bi-pap 06/01/20 08:00 97.0 104 33 110/76 (87) 96 06/01/20 07:26 102 06/01/20 07:15 101 35 97 100 06/01/20 07:15 101 35 97 Bi-Pap 100 06/01/20 07:15 97 Bi-Pap 100 06/01/20 04:00 103 06/01/20 04:00 100 06/01/20 04:00 98.4 107 35 114/72 (86) 96 06/01/20 04:00 Bi-pap 100.0 Bi-pap 100.0 Bi-pap 06/01/20 03:28 105 21 94 100 06/01/20 00:00 98.1 102 34 133/80 (97) 94 06/01/20 00:00 Bi-pap 100.0 Bi-pap 100.0 Bi-pap 06/01/20 00:00 106 06/01/20 00:00 100 05/31/20 23:30 98 30 97 100 Intake and Output 05/31/20 06/01/20 19:00 07:00 Intake Total 600 ml 700 ml Output Total 450 ml 875 ml Balance 150 ml -175 ml Intake Oral 600 ml 700 ml Output Urine Total 450 ml 875 ml Laboratory Tests 06/01/20 05:27: White Blood Count 13.0H, Red Blood Count 4.62, Hemoglobin 12.9, Hematocrit 40.1, Mean Corpuscular Volume 87, Mean Corpuscular Hemoglobin 28.0, Mean Corpuscular Hemoglobin Concent 32.2, Red Cell Distribution Width 14.0, Platelet Count 408, Mean Platelet Volume 5.9L, Neutrophils (%) (Auto) , Lymphocytes (%) (Auto) , Monocytes (%) (Auto) , Eosinophils (%) (Auto) , Basophils (%) (Auto) , Differential Total Cells Counted 100, Neutrophils % (Manual) 92H, Lymphocytes % (Manual) 3L, Monocytes % (Manual) 4, Eosinophils % (Manual) 1, Basophils % (Manual) 0, Band Neutrophils 0, Platelet Estimate Adequate, Platelet Morphology Normal, Red Blood Cell Morphology Normal, Sodium Level 136, Potassium Level 4.4, Chloride Level 99, Carbon Dioxide Level 29, Anion Gap 8, Blood Urea Nitrogen 53H , Creatinine 1.3, Estimat Glomerular Filtration Rate 41.6, Glucose Level 212H, Calcium Level 9.5, Phosphorus Level 4.2, Magnesium Level 2.3, Total Bilirubin 0.3, Aspartate Amino Transf (AST/SGOT) 24, Alanine Aminotransferase (ALT/SGPT) 17, Alkaline Phosphatase 67, C-Reactive Protein, Quantitative 18.9H, Total Protein 7.1, Albumin 2.4L, Globulin 4.7, Albumin/Globulin Ratio 0.5L Height (Feet): 5 Height (Inches): 0.00 Weight (Pounds): 100 Respiratory/Chest: crackles/rales Assessment/Plan Problem List: (1) Leukemia ICD Codes: C95.90 - Leukemia, unspecified not having achieved remission SNOMED: 37830386 (2) Bilateral pleural effusion ICD Codes: J90 - Pleural effusion, not elsewhere classified SNOMED: 337770505 Status: progressing Assessment/Plan: cant be without bipap pleural effusion on high oxygen leukemia reviewed chart and labs Tiara Jara MD Jun 01, 2020 21:56
--- NOTE | 2020-06-01 22:58 | General Progress Note ---
Subjective Allergies: Coded Allergies: No Known Allergies (Unverified , 05/19/20) Subjective above noted NPO again on BIPAP Objective Last 24 Hour Vital Signs Date Time Temp Pulse Resp B/P (MAP) Pulse Ox O2 Delivery O2 Flow Rate FiO2 06/01/20 20:51 15.0 06/01/20 20:00 98.1 101 24 135/80 (98) 94 06/01/20 20:00 Non-Rebreather 15.0 Non-Rebreather 15.0 Non-Rebreather 15.0 06/01/20 20:00 103 06/01/20 19:12 93 Non-Rebreather 15.0 100 06/01/20 19:12 105 26 97 Non-Rebreather 15.0 100 06/01/20 16:00 96.4 95 26 124/72 (89) 95 06/01/20 16:00 15.0 06/01/20 15:55 Bi-pap 15.0 Non-Rebreather 15.0 Non-Rebreather 06/01/20 15:15 98 06/01/20 12:00 15.0 06/01/20 12:00 Bi-pap 15.0 Non-Rebreather 15.0 Non-Rebreather 06/01/20 11:56 96.1 106 31 106/57 (73) 98 06/01/20 11:51 100 06/01/20 11:15 99 98 06/01/20 08:00 100 06/01/20 08:00 Bi-pap 100.0 Bi-pap 100.0 Bi-pap 06/01/20 08:00 97.0 104 33 110/76 (87) 96 06/01/20 07:26 102 06/01/20 07:15 101 35 97 100 06/01/20 07:15 101 35 97 Bi-Pap 100 06/01/20 07:15 97 Bi-Pap 100 06/01/20 04:00 103 06/01/20 04:00 100 06/01/20 04:00 98.4 107 35 114/72 (86) 96 06/01/20 04:00 Bi-pap 100.0 Bi-pap 100.0 Bi-pap 06/01/20 03:28 105 21 94 100 06/01/20 00:00 98.1 102 34 133/80 (97) 94 06/01/20 00:00 Bi-pap 100.0 Bi-pap 100.0 Bi-pap 06/01/20 00:00 106 06/01/20 00:00 100 05/31/20 23:30 98 30 97 100 Intake and Output 05/31/20 06/01/20 19:00 07:00 Intake Total 600 ml 700 ml Output Total 450 ml 875 ml Balance 150 ml -175 ml Intake Oral 600 ml 700 ml Output Urine Total 450 ml 875 ml Laboratory Tests 06/01/20 05:27: White Blood Count 13.0H, Red Blood Count 4.62, Hemoglobin 12.9, Hematocrit 40.1, Mean Corpuscular Volume 87, Mean Corpuscular Hemoglobin 28.0, Mean Corpuscular Hemoglobin Concent 32.2, Red Cell Distribution Width 14.0, Platelet Count 408, Mean Platelet Volume 5.9L, Neutrophils (%) (Auto) , Lymphocytes (%) (Auto) , Monocytes (%) (Auto) , Eosinophils (%) (Auto) , Basophils (%) (Auto) , Differential Total Cells Counted 100, Neutrophils % (Manual) 92H, Lymphocytes % (Manual) 3L, Monocytes % (Manual) 4, Eosinophils % (Manual) 1, Basophils % (Manual) 0, Band Neutrophils 0, Platelet Estimate Adequate, Platelet Morphology Normal, Red Blood Cell Morphology Normal, Sodium Level 136, Potassium Level 4.4, Chloride Level 99, Carbon Dioxide Level 29, Anion Gap 8, Blood Urea Nitrogen 53H , Creatinine 1.3, Estimat Glomerular Filtration Rate 41.6, Glucose Level 212H, Calcium Level 9.5, Phosphorus Level 4.2, Magnesium Level 2.3, Total Bilirubin 0.3, Aspartate Amino Transf (AST/SGOT) 24, Alanine Aminotransferase (ALT/SGPT) 17, Alkaline Phosphatase 67, C-Reactive Protein, Quantitative 18.9H, Total Protein 7.1, Albumin 2.4L, Globulin 4.7, Albumin/Globulin Ratio 0.5L Height (Feet): 5 Height (Inches): 0.00 Weight (Pounds): 100 Objective NCAT supple Coarse BS RR abd soft no edema Assessment/Plan Status: progressing Assessment/Plan: Assessment - Respiratory failure - pleural effusions, s/p thoracentesis - Renal failure - Malnutrition - NPO again due to airway/BIPAP - Elevated troponin - HTN - CML Recommendations - Pulmonary management - NPO until safe to [place] - follow labs and exam Antonio Ratliff MD Jun 01, 2020 22:58
[2020-06-02] VITALS: BP_SYST 135; BP_SYST 143; BP_DIAS 79
[2020-06-02 04:00] VITALS: BP 131/78
--- NOTE | 2020-06-02 06:50 | Hematology/Onc Progress Note ---
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, sees oncologist in [facility] --> at this time STOP desatanib (also is the likely cause of pleural effusions) --> no is s/p thora per pulm/cards --> wbc trend 18->7->10 --> hgb 11.5->12->13 --> ABX ceftriaxone-->off --> bipap, thora prn --> needs molecular and cytogenectic response for CML, f/u oncologist outpatient # Bilateral pleural effusion --> as per pulm, is on bipap --> thora as needed --> repeat thora prn 05/29 # HTN --> hydralazine and lisinopril --> sbp goal <140 # Dehydration --> goal of euvolemia # Elevated ddimer --> duplex lower ext r/o dvt==>neg # Dvt ppx lovenox sq Appreciate consultation and zachariah RN Subjective Constitutional: Denies: no symptoms, chills, fever, malaise, weakness, other HEENT: Denies: no symptoms, eye pain, blurred vision, tearing, double vision, ear pain, ear discharge, nose pain, nose congestion, throat pain, throat swelling, mouth pain, mouth swelling, other Cardiovascular: Denies: no symptoms, chest pain, edema, irregular heart rate, lightheadedness, palpitations, syncope, other Respiratory: Denies: no symptoms, cough, shortness of breath, SOB with excertion, SOB at rest, sputum, wheezing, other Gastrointestinal/Abdominal: Denies: no symptoms, abdomen distended, abdominal pain, black stools, tarry stools, blood in stool, constipated, diarrhea, difficulty swallowing, nausea, poor appetite, poor fluid intake, rectal bleeding, vomiting, other Genitourinary: Denies: no symptoms, burning, discharge, frequency, flank pain, hematuria, incontinence, pain, urgency, other Neurologic/Psychiatric: Denies: no symptoms, anxiety, depressed, emotional problems, headache, numbness, paresthesia, pre-existing deficit, seizure, tingling, tremors, weakness, other Endocrine: Denies: no symptoms, excessive sweating, flushing, intolerance to cold, intolerance to heat, increased hunger, increased thirst, increased urine, unexplained weight gain, unexplained weight loss, other Allergies: Coded Allergies: No Known Allergies (Unverified , 05/19/20) Subjective 05/21 labs are noted, no bleeding, with pleural effusions due to desatanbib, s/p thora 05/22 labs are noted, no bleeding, on bipap, i dw her today to stop her med at once 05/24 wbc is improved, continue on ctx for one more day per id, bipap 05/26 have ordered for repeat cxr this am to reeval pleural effusions, labs noted 05/27 with b/l pleural effusions, aware from pulm, thora prn 05/28 has been refusing scds, thus will start lovenox today, breathing better s/p thora 05/29 with nonrebreather, for thora today, no night sweats, meds noted 05/31 remains on bipap, meds reviewed, off desatanib, worse effusion r>l 06/01 on bipap this am, labs pending for am 06/02 unable to wean off facemask, requiring it, will dw sister today Objective Objective Current Medications Medications (Trade) Dose Ordered Sig/Jennie Route PRN Reason Start Time Stop Time Status Last Admin Dose Admin Acetaminophen (Tylenol) 500 mg Q6H PRN ORAL Mild Pain (Pain Scale 1-3) 05/19/20 16:45 06/18/20 16:44 Albuterol/ Ipratropium (Albuterol/ Ipratropium) 3 ml Q4H PRN HHN Shortness of Breath 05/31/20 08:45 06/05/20 08:44 Clonidine HCl (Catapres Tab) 0.1 mg Q4H PRN ORAL SBP > 170 05/24/20 13:15 08/22/20 13:14 Docusate Sodium (Colace) 100 mg TWICE A DAY ORAL 05/22/20 18:00 06/21/20 17:59 06/01/20 17:13 Enoxaparin Sodium (Lovenox) 40 mg DAILY SUBQ 06/02/20 09:00 08/31/20 08:59 Furosemide (Lasix) 40 mg BID ORAL 06/01/20 18:00 06/26/20 08:59 06/01/20 17:14 Levofloxacin (Levaquin) 250 mg DAILY ORAL 06/02/20 09:00 06/09/20 08:59 Metolazone (Zaroxolyn) 5 mg DAILY ORAL 06/01/20 12:00 07/01/20 11:59 06/01/20 11:46 Pantoprazole (Protonix) 40 mg Q12HR ORAL 05/22/20 21:00 06/21/20 20:59 06/01/20 21:00 Last 24 Hour Vital Signs Date Time Temp Pulse Resp B/P (MAP) Pulse Ox O2 Delivery O2 Flow Rate FiO2 06/02/20 04:00 Non-Rebreather 15.0 Non-Rebreather 15.0 Non-Rebreather 15.0 06/02/20 00:00 98.2 102 6 135/79 (97) 94 06/02/20 00:00 Non-Rebreather 15.0 Non-Rebreather 15.0 Non-Rebreather 15.0 06/01/20 23:35 103 06/01/20 20:51 15.0 06/01/20 20:00 98.1 101 24 135/80 (98) 94 06/01/20 20:00 Non-Rebreather 15.0 Non-Rebreather 15.0 Non-Rebreather 15.0 06/01/20 20:00 103 06/01/20 19:12 93 Non-Rebreather 15.0 100 06/01/20 19:12 105 26 97 Non-Rebreather 15.0 100 06/01/20 16:00 96.4 95 26 124/72 (89) 95 06/01/20 16:00 15.0 06/01/20 15:55 Bi-pap 15.0 Non-Rebreather 15.0 Non-Rebreather 06/01/20 15:15 98 06/01/20 12:00 15.0 06/01/20 12:00 Bi-pap 15.0 Non-Rebreather 15.0 Non-Rebreather 06/01/20 11:56 96.1 106 31 106/57 (73) 98 06/01/20 11:51 100 06/01/20 11:15 99 98 06/01/20 08:00 100 06/01/20 08:00 Bi-pap 100.0 Bi-pap 100.0 Bi-pap 06/01/20 08:00 97.0 104 33 110/76 (87) 96 06/01/20 07:26 102 06/01/20 07:15 101 35 97 100 06/01/20 07:15 101 35 97 Bi-Pap 100 06/01/20 07:15 97 Bi-Pap 100 06/01/20 04:00 103 06/01/20 04:00 100 06/01/20 04:00 98.4 107 35 114/72 (86) 96 06/01/20 04:00 Bi-pap 100.0 Bi-pap 100.0 Bi-pap 06/01/20 03:28 105 21 94 100 06/01/20 00:00 98.1 102 34 133/80 (97) 94 06/01/20 00:00 Bi-pap 100.0 Bi-pap 100.0 Bi-pap 06/01/20 00:00 106 06/01/20 00:00 100 05/31/20 23:30 98 30 97 100 05/31/20 20:00 98.0 103 24 122/74 (90) 95 05/31/20 20:00 Bi-pap 100.0 Bi-pap 100.0 Bi-pap 05/31/20 20:00 100 05/31/20 19:35 95 Bi-Pap 100 05/31/20 19:35 102 31 95 Bi-Pap 100 05/31/20 19:32 100 05/31/20 19:30 102 31 95 100 05/31/20 16:20 Bi-pap 100.0 Bi-pap 100.0 05/31/20 16:00 100 05/31/20 16:00 110 05/31/20 15:54 97.0 89 18 113/75 (88) 100 05/31/20 15:50 106 22 98 100 05/31/20 12:10 100 05/31/20 12:00 15.0 05/31/20 12:00 108 05/31/20 12:00 Bi-pap 100.0 Bi-pap 100.0 05/31/20 12:00 103 34 95 100 05/31/20 12:00 97.3 110 20 153/79 (103) 93 05/31/20 08:00 15.0 05/31/20 08:00 101 05/31/20 08:00 Non-Rebreather 15.0 Non-Rebreather 15.0 05/31/20 08:00 97.2 101 20 145/80 (101) 91 05/31/20 07:25 91 Non-Rebreather 15.0 100 05/31/20 07:23 93 24 91 Non-Rebreather 15.0 100 Intake and Output 06/01/20 06/02/20 19:00 07:00 Intake Total 260 ml Output Total 900 ml Balance -640 ml Intake Oral 260 ml Output Urine Total 900 ml # Bowel Movements 2 Labs Test 05/31/20 12:40 05/31/20 17:10 06/01/20 05:27 Arterial Blood pH 7.326 (7.350-7.450) 7.394 (7.350-7.450) Arterial Blood Partial Pressure CO2 59.0 mmHg (35.0-45.0) 49.5 mmHg (35.0-45.0) Arterial Blood Partial Pressure O2 60.0 mmHg (75.0-100.0) 81.1 mmHg (75.0-100.0) Arterial Blood HCO3 30.1 mmol/L (22.0-26.0) 29.6 mmol/L (22.0-26.0) Arterial Blood Oxygen Saturation 88.5 % (95-100) 95.3 % (95-100) Arterial Blood Base Excess 2.7 (-2-2) 3.8 (-2-2) Sammy Test Positive Positive White Blood Count 13.0 K/UL (4.8-10.8) Red Blood Count 4.62 M/UL (4.20-5.40) Hemoglobin 12.9 G/DL (12.0-16.0) Hematocrit 40.1 % (37.0-47.0) Mean Corpuscular Volume 87 FL (80-99) Mean Corpuscular Hemoglobin 28.0 PG (27.0-31.0) Mean Corpuscular Hemoglobin Concent 32.2 G/DL (32.0-36.0) Red Cell Distribution Width 14.0 % (11.6-14.8) Platelet Count 408 K/UL (150-450) Mean Platelet Volume 5.9 FL (6.5-10.1) Neutrophils (%) (Auto) % (45.0-75.0) Lymphocytes (%) (Auto) % (20.0-45.0) Monocytes (%) (Auto) % (1.0-10.0) Eosinophils (%) (Auto) % (0.0-3.0) Basophils (%) (Auto) % (0.0-2.0) Differential Total Cells Counted 100 Neutrophils % (Manual) 92 % (45-75) Lymphocytes % (Manual) 3 % (20-45) Monocytes % (Manual) 4 % (1-10) Eosinophils % (Manual) 1 % (0-3) Basophils % (Manual) 0 % (0-2) Band Neutrophils 0 % (0-8) Platelet Estimate Adequate Platelet Morphology Normal Red Blood Cell Morphology Normal Sodium Level 136 MMOL/L (136-145) Potassium Level 4.4 MMOL/L (3.5-5.1) Chloride Level 99 MMOL/L (98-107) Carbon Dioxide Level 29 MMOL/L (21-32) Anion Gap 8 mmol/L (5-15) Blood Urea Nitrogen 53 mg/dL (7-18) Creatinine 1.3 MG/DL (0.55-1.30) Estimat Glomerular Filtration Rate 41.6 mL/min (>60) Glucose Level 212 MG/DL (74-106) Calcium Level 9.5 MG/DL (8.5-10.1) Phosphorus Level 4.2 MG/DL (2.5-4.9) Magnesium Level 2.3 MG/DL (1.8-2.4) Total Bilirubin 0.3 MG/DL (0.2-1.0) Aspartate Amino Transf (AST/SGOT) 24 U/L (15-37) Alanine Aminotransferase (ALT/SGPT) 17 U/L (12-78) Alkaline Phosphatase 67 U/L (46-116) C-Reactive Protein, Quantitative 18.9 mg/dL (0.00-0.90) Total Protein 7.1 G/DL (6.4-8.2) Albumin 2.4 G/DL (3.4-5.0) Globulin 4.7 g/dL Albumin/Globulin Ratio 0.5 (1.0-2.7) Height (Feet): 5 Height (Inches): 0.00 Weight (Pounds): 100 Dionicio Higgins MD Jun 02, 2020 06:50
[2020-06-02 08:00] VITALS: BP 141/74
[2020-06-02] MEDS: Furosemide 40mg tab ORAL SCH ×2 (08:09→17:11)
[2020-06-02] MEDS: Docusate 100mg cap ORAL SCH ×2 (08:09→17:11)
[2020-06-02] MEDS: Enoxaparin 40mg Inj SUBQ SCH (08:10)
--- NOTE | 2020-06-02 09:56 | Pulmonology Progress Note ---
Subjective ROS Limited/Unobtainable: No Interval Events: Diuresing well; now on 15L O2 Constitutional: Reports: no symptoms HEENT: Repors: no symptoms Respiratory: Reports: dry cough Gastrointestinal/Abdominal: Reports: no symptoms Genitourinary: Reports: no symptoms Neurologic: Reports: no symptoms Musculoskeletal: Denies: pain Allergies: Coded Allergies: No Known Allergies (Unverified , 05/19/20) Objective Last 24 Hour Vital Signs Date Time Temp Pulse Resp B/P (MAP) Pulse Ox O2 Delivery O2 Flow Rate FiO2 06/02/20 08:20 101 39 93 100 06/02/20 08:00 96.4 108 25 141/74 (96) 91 06/02/20 07:55 15.0 06/02/20 07:53 107 06/02/20 07:53 Non-Rebreather 15.0 Non-Rebreather 15.0 Non-Rebreather 15.0 06/02/20 04:00 98.0 107 24 131/78 (95) 94 06/02/20 04:00 105 06/02/20 04:00 15.0 06/02/20 04:00 Non-Rebreather 15.0 Non-Rebreather 15.0 Non-Rebreather 15.0 06/02/20 00:00 98.2 102 28 143/79 (100) 94 06/02/20 00:00 Non-Rebreather 15.0 Non-Rebreather 15.0 Non-Rebreather 15.0 06/01/20 23:35 103 06/01/20 20:51 15.0 06/01/20 20:00 98.1 101 24 135/80 (98) 94 06/01/20 20:00 Non-Rebreather 15.0 Non-Rebreather 15.0 Non-Rebreather 15.0 06/01/20 20:00 103 06/01/20 19:12 93 Non-Rebreather 15.0 100 06/01/20 19:12 105 26 97 Non-Rebreather 15.0 100 06/01/20 16:00 96.4 95 26 124/72 (89) 95 06/01/20 16:00 15.0 06/01/20 15:55 Bi-pap 15.0 Non-Rebreather 15.0 Non-Rebreather 06/01/20 15:15 98 06/01/20 12:00 15.0 06/01/20 12:00 Bi-pap 15.0 Non-Rebreather 15.0 Non-Rebreather 06/01/20 11:56 96.1 106 31 106/57 (73) 98 06/01/20 11:51 100 06/01/20 11:15 99 98 Intake and Output 06/01/20 06/02/20 19:00 07:00 Intake Total 260 ml 300 ml Output Total 900 ml 1000 ml Balance -640 ml -700 ml Intake Oral 260 ml 300 ml Output Urine Total 900 ml 1000 ml # Bowel Movements 2 General Appearance: no acute distress Respiratory: chest wall non-tender, normal breath sounds, no respiratory distress, no accessory muscle use, decreased breath sounds Cardiovascular: normal peripheral pulses, normal rate Abdomen: normal bowel sounds Extremities: no cyanosis, no clubbing, no edema Current Medications Medications (Trade) Dose Ordered Sig/Jennie Route PRN Reason Start Time Stop Time Status Last Admin Dose Admin Acetaminophen (Tylenol) 500 mg Q6H PRN ORAL Mild Pain (Pain Scale 1-3) 05/19/20 16:45 06/18/20 16:44 Albuterol/ Ipratropium (Albuterol/ Ipratropium) 3 ml Q4H PRN HHN Shortness of Breath 05/31/20 08:45 06/05/20 08:44 Clonidine HCl (Catapres Tab) 0.1 mg Q4H PRN ORAL SBP > 170 05/24/20 13:15 08/22/20 13:14 Docusate Sodium (Colace) 100 mg TWICE A DAY ORAL 05/22/20 18:00 06/21/20 17:59 06/02/20 08:09 Enoxaparin Sodium (Lovenox) 40 mg DAILY SUBQ 06/02/20 09:00 08/31/20 08:59 06/02/20 08:10 Furosemide (Lasix) 40 mg BID ORAL 06/01/20 18:00 06/26/20 08:59 06/02/20 08:09 Levofloxacin (Levaquin) 250 mg DAILY ORAL 06/02/20 09:00 06/09/20 08:59 06/02/20 08:09 Metolazone (Zaroxolyn) 5 mg DAILY ORAL 06/01/20 12:00 07/01/20 11:59 06/02/20 08:09 Pantoprazole (Protonix) 40 mg Q12HR ORAL 05/22/20 21:00 06/21/20 20:59 06/02/20 08:09 Assessment/Plan Assessment/Plan IMPRESSION: 1. History of CML, on dasatinib. 2. Possible pneumonia. 3. Large pleural effusion, s/p thoracentesis. 4. Hypertension. 5. Elevated D-dimer DISCUSSION: S/p Bilateral thoracentesis, CXR much improved; Now on NRBM Will continue diuresis Agree with broad-spectrum antibiotics. Michelet Hernandez Omar Syed MD Jun 02, 2020 09:56
--- NOTE | 2020-06-02 11:45 | Infectious Diseases Prog Note ---
Assessment/Plan Assessment/Plan IMPRESSION: Leukocytosis, systemic inflammatory response syndrome or sepsis, Recurrent pleural effusion, CML, Accelerated hypertension, Elevation of troponin. Hypoxemia RECOMMENDATION: Continue PO Levaquin F/U CBC, BMP & CXR May need pleurodesis Subjective ROS Limited/Unobtainable: No Constitutional: Reports: no symptoms Respiratory: Reports: shortness of breath, dry cough Cardiovascular: Reports: no symptoms Gastrointestinal/Abdominal: Reports: no symptoms Genitourinary: Reports: no symptoms Allergies: Coded Allergies: No Known Allergies (Unverified , 05/19/20) Objective Last 24 Hour Vital Signs Date Time Temp Pulse Resp B/P (MAP) Pulse Ox O2 Delivery O2 Flow Rate FiO2 06/02/20 09:20 100 96 06/02/20 08:20 101 39 93 100 06/02/20 08:00 96.4 108 25 141/74 (96) 91 06/02/20 07:55 15.0 06/02/20 07:53 107 06/02/20 07:53 Non-Rebreather 15.0 Non-Rebreather 15.0 Non-Rebreather 15.0 06/02/20 07:00 112 30 91 Non-Rebreather 15.0 100 06/02/20 07:00 91 Non-Rebreather 15.0 100 06/02/20 04:00 98.0 107 24 131/78 (95) 94 06/02/20 04:00 105 06/02/20 04:00 15.0 06/02/20 04:00 Non-Rebreather 15.0 Non-Rebreather 15.0 Non-Rebreather 15.0 06/02/20 00:00 98.2 102 28 143/79 (100) 94 06/02/20 00:00 Non-Rebreather 15.0 Non-Rebreather 15.0 Non-Rebreather 15.0 06/01/20 23:35 103 06/01/20 20:51 15.0 06/01/20 20:00 98.1 101 24 135/80 (98) 94 06/01/20 20:00 Non-Rebreather 15.0 Non-Rebreather 15.0 Non-Rebreather 15.0 06/01/20 20:00 103 06/01/20 19:12 93 Non-Rebreather 15.0 100 06/01/20 19:12 105 26 97 Non-Rebreather 15.0 100 06/01/20 16:00 96.4 95 26 124/72 (89) 95 06/01/20 16:00 15.0 06/01/20 15:55 Bi-pap 15.0 Non-Rebreather 15.0 Non-Rebreather 06/01/20 15:15 98 06/01/20 12:00 15.0 06/01/20 12:00 Bi-pap 15.0 Non-Rebreather 15.0 Non-Rebreather 06/01/20 11:56 96.1 106 31 106/57 (73) 98 06/01/20 11:51 100 Height (Feet): 5 Height (Inches): 0.00 Weight (Pounds): 100 HEENT: mucous membranes moist Respiratory/Chest: decreased breath sounds, other - oxygen by rebreathing mask Cardiovascular: tachycardia Abdomen: soft, non tender Extremities: no edema Neurologic/Psychiatric: alert, oriented x 3, responsive Current Medications Medications (Trade) Dose Ordered Sig/Jennie Route PRN Reason Start Time Stop Time Status Last Admin Dose Admin Acetaminophen (Tylenol) 500 mg Q6H PRN ORAL Mild Pain (Pain Scale 1-3) 05/19/20 16:45 06/18/20 16:44 Albuterol/ Ipratropium (Albuterol/ Ipratropium) 3 ml Q4H PRN HHN Shortness of Breath 05/31/20 08:45 06/05/20 08:44 Clonidine HCl (Catapres Tab) 0.1 mg Q4H PRN ORAL SBP > 170 05/24/20 13:15 08/22/20 13:14 Docusate Sodium (Colace) 100 mg TWICE A DAY ORAL 05/22/20 18:00 06/21/20 17:59 06/02/20 08:09 Enoxaparin Sodium (Lovenox) 40 mg DAILY SUBQ 06/02/20 09:00 08/31/20 08:59 06/02/20 08:10 Furosemide (Lasix) 40 mg BID ORAL 06/01/20 18:00 06/26/20 08:59 06/02/20 08:09 Levofloxacin (Levaquin) 250 mg DAILY ORAL 06/02/20 09:00 06/09/20 08:59 06/02/20 08:09 Metolazone (Zaroxolyn) 5 mg DAILY ORAL 06/01/20 12:00 07/01/20 11:59 06/02/20 08:09 Pantoprazole (Protonix) 40 mg Q12HR ORAL 05/22/20 21:00 06/21/20 20:59 06/02/20 08:09 Timothy Pennington MD Jun 02, 2020 11:45
[2020-06-02 12:00] VITALS: BP 138/85
--- NOTE | 2020-06-02 13:32 | Nephrology Progress Note ---
Assessment/Plan Problem List: (1) ASHLEY (acute kidney injury) (2) Bilateral pleural effusion (3) Leukemia Assessment Imp: Acute renal failure, with sudden jump in serum creatinine to 2.7 History of leukemia Hypertension, now hypotensive Hyponatremia on admission, improved Bilateral pleural effusion. Status post paracentesis. Elevated troponin, most likely leak. Plan June 02: No chemistry panel done today. Status unchanged. Remains on nonrebreathing mask. Will check lab tomorrow. Continue per pulmonary. June 01: Labs reviewed. Status unchanged. Remains on nonrebreathing mask. Will increase his Lasix to 40 twice daily. Stable electrolytes and renal parameters at this time. May 31: No chemistry panel done today. Patient still on nonrebreathing mask. Patient full code. Will check lab tomorrow. Patient's main issue is respiratory. May 30: Labs reviewed. Renal parameters stable. Continue per pulmonary. May 29: No chemistry panel done today. Remains on nonrebreather mask. Will order labs tomorrow. Continue per consultants. May 28: Serum creatinine up to 1.5. Remains on nonrebreather mask. Since admission had 3 thoracenteses for pleural effusion over the left and right. Respiratory status remains unstable. Continue per pulmonary. Will watch renal parameters. May 27: When seen the patient was on 100% nonrebreather mask. Renal panel within normal limit. Continue per consultants. Main problem remains respiratory. May 26: Renal parameters stable. Started on Lasix 40 mg daily. Continue to monitor renal parameters and electrolytes. Continue per consultants. May 25: Renal parameters within normal limit. Another dose of IV Lasix given. Continue to monitor electrolytes. Continue per consultants. May 24: Renal parameters normalized. Will give the Lasix 40 mg IV once. 1 dose of Kayexalate for hyperkalemia. Continue to monitor renal parameters. Previously: Today renal parameters are improved. Serum creatinine down to 1.6 from 2.7 Continue to hold lisinopril Continue to hold Lasix Half Normal saline 100 cc an hour one liter only was given yesterday Albumin bolus given yesterday, repeat as needed Monitor renal parameters Avoid nephrotoxic's Subjective ROS Limited/Unobtainable: No Constitutional: Reports: malaise Objective Objective Last 24 Hour Vital Signs Date Time Temp Pulse Resp B/P (MAP) Pulse Ox O2 Delivery O2 Flow Rate FiO2 10/6/20 12:00 15.0 06/02/20 12:00 96.3 104 24 138/85 (102) 93 06/02/20 12:00 Non-Rebreather 15.0 Non-Rebreather 15.0 Non-Rebreather 15.0 06/02/20 09:20 100 96 06/02/20 08:20 101 39 93 100 06/02/20 08:00 96.4 108 25 141/74 (96) 91 06/02/20 07:55 15.0 06/02/20 07:53 107 06/02/20 07:53 Non-Rebreather 15.0 Non-Rebreather 15.0 Non-Rebreather 15.0 06/02/20 07:00 112 30 91 Non-Rebreather 15.0 100 06/02/20 07:00 91 Non-Rebreather 15.0 100 06/02/20 04:00 98.0 107 24 131/78 (95) 94 06/02/20 04:00 105 06/02/20 04:00 15.0 06/02/20 04:00 Non-Rebreather 15.0 Non-Rebreather 15.0 Non-Rebreather 15.0 06/02/20 00:00 98.2 102 28 143/79 (100) 94 06/02/20 00:00 Non-Rebreather 15.0 Non-Rebreather 15.0 Non-Rebreather 15.0 06/01/20 23:35 103 06/01/20 20:51 15.0 06/01/20 20:00 98.1 101 24 135/80 (98) 94 06/01/20 20:00 Non-Rebreather 15.0 Non-Rebreather 15.0 Non-Rebreather 15.0 06/01/20 20:00 103 06/01/20 19:12 93 Non-Rebreather 15.0 100 06/01/20 19:12 105 26 97 Non-Rebreather 15.0 100 06/01/20 16:00 96.4 95 26 124/72 (89) 95 06/01/20 16:00 15.0 06/01/20 15:55 Bi-pap 15.0 Non-Rebreather 15.0 Non-Rebreather 06/01/20 15:15 98 Intake and Output 06/01/20 06/02/20 19:00 07:00 Intake Total 260 ml 300 ml Output Total 900 ml 1000 ml Balance -640 ml -700 ml Intake Oral 260 ml 300 ml Output Urine Total 900 ml 1000 ml # Bowel Movements 2 No chemistry panel done today. Height (Feet): 5 Height (Inches): 0.00 Weight (Pounds): 100 General Appearance: no apparent distress Respiratory/Chest: decreased breath sounds Abdomen: distended Montrell Carpio MD Jun 02, 2020 13:32
[2020-06-02 16:00] VITALS: BP 124/80
--- NOTE | 2020-06-02 17:13 | Cardiac Electrophysiology PN ---
Assessment/Plan Assessment/Plan 1. Accelerated hypertension. Now off Lisinopril for acute renal failure On Lasix 40 po daily and prn Clonidine 2. Troponin leak. Level low and no CP and likely due to renal failure 3. Bilateral pleural effusions. S/P Right side thoracentesis x 2. FU by Dr. Olson. S/P Left thoracentesis again x2 last one 05/29/20. Now on NRB FM 4. Hyponatremia. 5. CML x 5 years, [facility] DCed desatanib (also is the likely cause of pleural effusions) Per Dr Dolan 6. Acute renal failure with sudden JUMP in creatinine to 2.7. FU Dr Carpio. Better after iv fluid, Albumin and off Lisinopril. Cr now 1.0 DW RN and daughter Subjective Subjective S/P 2 Right sided thoracentesis ( 1.2 liters of serosanguineous fluid ) on 05/21/20 and 05/26/20 S/P 2 Left thoracentesis last one 05/29/20 On 15 liter NRB FM again today, Daughter at bedside Objective Last 24 Hour Vital Signs Date Time Temp Pulse Resp B/P (MAP) Pulse Ox O2 Delivery O2 Flow Rate FiO2 06/02/20 16:00 Non-Rebreather 15.0 Non-Rebreather 15.0 Non-Rebreather 15.0 06/02/20 16:00 15.0 06/02/20 16:00 96.6 101 25 124/80 (95) 92 06/02/20 15:32 99 06/02/20 12:00 15.0 06/02/20 12:00 96.3 104 24 138/85 (102) 93 06/02/20 12:00 Non-Rebreather 15.0 Non-Rebreather 15.0 Non-Rebreather 15.0 06/02/20 11:46 101 06/02/20 09:20 100 96 06/02/20 08:20 101 39 93 100 06/02/20 08:00 96.4 108 25 141/74 (96) 91 06/02/20 07:55 15.0 06/02/20 07:53 107 06/02/20 07:53 Non-Rebreather 15.0 Non-Rebreather 15.0 Non-Rebreather 15.0 06/02/20 07:00 112 30 91 Non-Rebreather 15.0 100 06/02/20 07:00 91 Non-Rebreather 15.0 100 06/02/20 04:00 98.0 107 24 131/78 (95) 94 06/02/20 04:00 105 06/02/20 04:00 15.0 06/02/20 04:00 Non-Rebreather 15.0 Non-Rebreather 15.0 Non-Rebreather 15.0 06/02/20 00:00 98.2 102 28 143/79 (100) 94 06/02/20 00:00 Non-Rebreather 15.0 Non-Rebreather 15.0 Non-Rebreather 15.0 06/01/20 23:35 103 06/01/20 20:51 15.0 06/01/20 20:00 98.1 101 24 135/80 (98) 94 06/01/20 20:00 Non-Rebreather 15.0 Non-Rebreather 15.0 Non-Rebreather 15.0 06/01/20 20:00 103 06/01/20 19:12 93 Non-Rebreather 15.0 100 06/01/20 19:12 105 26 97 Non-Rebreather 15.0 100 Intake and Output 06/01/20 06/02/20 19:00 07:00 Intake Total 260 ml 300 ml Output Total 900 ml 1000 ml Balance -640 ml -700 ml Intake Oral 260 ml 300 ml Output Urine Total 900 ml 1000 ml # Bowel Movements 2 Objective HEAD AND NECK: No JVD. On Venturi Mask LUNGS: Decreased breath sounds. CARDIOVASCULAR: Regular S1 and S2 and tachycardic. ABDOMEN: Soft. EXTREMITIES: No pitting edema. Cristian England MD Jun 02, 2020 17:13
[2020-06-02] MEDS ORDERED: 1/2 NS 1000ml IV ONE (18:18)
--- NOTE | 2020-06-02 19:58 | General Progress Note ---
Subjective Allergies: Coded Allergies: No Known Allergies (Unverified , 05/19/20) Subjective above noted on BIPAP but has been able to eat Objective Last 24 Hour Vital Signs Date Time Temp Pulse Resp B/P (MAP) Pulse Ox O2 Delivery O2 Flow Rate FiO2 06/02/20 18:45 108 28 92 Non-Rebreather 15.0 100 06/02/20 17:33 101 46 94 100 06/02/20 17:32 94 Bi-Pap 100 06/02/20 16:00 Non-Rebreather 15.0 Non-Rebreather 15.0 Non-Rebreather 15.0 06/02/20 16:00 15.0 06/02/20 16:00 96.6 101 25 124/80 (95) 92 06/02/20 15:32 99 06/02/20 12:00 15.0 06/02/20 12:00 96.3 104 24 138/85 (102) 93 06/02/20 12:00 Non-Rebreather 15.0 Non-Rebreather 15.0 Non-Rebreather 15.0 06/02/20 11:46 101 06/02/20 09:20 100 96 06/02/20 08:20 101 39 93 100 06/02/20 08:00 96.4 108 25 141/74 (96) 91 06/02/20 07:55 15.0 06/02/20 07:53 107 06/02/20 07:53 Non-Rebreather 15.0 Non-Rebreather 15.0 Non-Rebreather 15.0 06/02/20 07:00 112 30 91 Non-Rebreather 15.0 100 06/02/20 07:00 91 Non-Rebreather 15.0 100 06/02/20 04:00 98.0 107 24 131/78 (95) 94 06/02/20 04:00 105 06/02/20 04:00 15.0 06/02/20 04:00 Non-Rebreather 15.0 Non-Rebreather 15.0 Non-Rebreather 15.0 06/02/20 00:00 98.2 102 28 143/79 (100) 94 06/02/20 00:00 Non-Rebreather 15.0 Non-Rebreather 15.0 Non-Rebreather 15.0 06/01/20 23:35 103 06/01/20 20:51 15.0 06/01/20 20:00 98.1 101 24 135/80 (98) 94 06/01/20 20:00 Non-Rebreather 15.0 Non-Rebreather 15.0 Non-Rebreather 15.0 06/01/20 20:00 103 Intake and Output 06/01/20 06/02/20 19:00 07:00 Intake Total 260 ml 300 ml Output Total 900 ml 1000 ml Balance -640 ml -700 ml Intake Oral 260 ml 300 ml Output Urine Total 900 ml 1000 ml # Bowel Movements 2 Height (Feet): 5 Height (Inches): 0.00 Weight (Pounds): 100 Objective NCAT supple Coarse BS RR abd soft no edema Assessment/Plan Status: progressing Assessment/Plan: Assessment - Respiratory failure - pleural effusions, s/p thoracentesis - Renal failure - Elevated troponin - HTN - CML Recommendations - Pulmonary management - aspiration precautions - follow labs and exam Antonio Ratliff MD Jun 02, 2020 19:58
[2020-06-02 20:00] VITALS: BP 139/75
--- NOTE | 2020-06-02 21:50 | General Progress Note ---
Subjective ROS Limited/Unobtainable: Yes Allergies: Coded Allergies: No Known Allergies (Unverified , 05/19/20) Objective Last 24 Hour Vital Signs Date Time Temp Pulse Resp B/P (MAP) Pulse Ox O2 Delivery O2 Flow Rate FiO2 06/02/20 20:00 15.0 06/02/20 20:00 Non-Rebreather 15.0 Non-Rebreather 15.0 Non-Rebreather 15.0 06/02/20 18:45 108 28 92 Non-Rebreather 15.0 100 06/02/20 17:33 101 46 94 100 06/02/20 17:32 94 Bi-Pap 100 06/02/20 16:00 Non-Rebreather 15.0 Non-Rebreather 15.0 Non-Rebreather 15.0 06/02/20 16:00 15.0 06/02/20 16:00 96.6 101 25 124/80 (95) 92 06/02/20 15:32 99 06/02/20 12:00 15.0 06/02/20 12:00 96.3 104 24 138/85 (102) 93 06/02/20 12:00 Non-Rebreather 15.0 Non-Rebreather 15.0 Non-Rebreather 15.0 06/02/20 11:46 101 06/02/20 09:20 100 96 06/02/20 08:20 101 39 93 100 06/02/20 08:00 96.4 108 25 141/74 (96) 91 06/02/20 07:55 15.0 06/02/20 07:53 107 06/02/20 07:53 Non-Rebreather 15.0 Non-Rebreather 15.0 Non-Rebreather 15.0 06/02/20 07:00 112 30 91 Non-Rebreather 15.0 100 06/02/20 07:00 91 Non-Rebreather 15.0 100 06/02/20 04:00 98.0 107 24 131/78 (95) 94 06/02/20 04:00 105 06/02/20 04:00 15.0 06/02/20 04:00 Non-Rebreather 15.0 Non-Rebreather 15.0 Non-Rebreather 15.0 06/02/20 00:00 98.2 102 28 143/79 (100) 94 06/02/20 00:00 Non-Rebreather 15.0 Non-Rebreather 15.0 Non-Rebreather 15.0 06/01/20 23:35 103 Intake and Output 06/01/20 06/02/20 19:00 07:00 Intake Total 260 ml 300 ml Output Total 900 ml 1000 ml Balance -640 ml -700 ml Intake Oral 260 ml 300 ml Output Urine Total 900 ml 1000 ml # Bowel Movements 2 Height (Feet): 5 Height (Inches): 0.00 Weight (Pounds): 100 Assessment/Plan Problem List: (1) Leukemia ICD Codes: C95.90 - Leukemia, unspecified not having achieved remission SNOMED: 25428754 (2) Bilateral pleural effusion ICD Codes: J90 - Pleural effusion, not elsewhere classified SNOMED: 156578010 Status: progressing Assessment/Plan: anxiety psych consult afebrile not much changed pleural effusion on high oxygen leukemia reviewed chart and labs Tiara Jara MD Jun 02, 2020 21:50
--- NOTE | 2020-06-02 23:25 | Psych Consult Progress Note ---
Psychiatry Progress Note Psychiatry Progress Note Medications Current Medications Medications (Trade) Dose Ordered Sig/Jennie Route PRN Reason Start Time Stop Time Status Last Admin Dose Admin Acetaminophen (Tylenol) 500 mg Q6H PRN ORAL Mild Pain (Pain Scale 1-3) 05/19/20 16:45 06/18/20 16:44 Albuterol/ Ipratropium (Albuterol/ Ipratropium) 3 ml Q4H PRN HHN Shortness of Breath 05/31/20 08:45 06/05/20 08:44 Clonidine HCl (Catapres Tab) 0.1 mg Q4H PRN ORAL SBP > 170 05/24/20 13:15 08/22/20 13:14 Docusate Sodium (Colace) 100 mg TWICE A DAY ORAL 05/22/20 18:00 06/21/20 17:59 06/02/20 17:11 Enoxaparin Sodium (Lovenox) 40 mg DAILY SUBQ 06/02/20 09:00 08/31/20 08:59 06/02/20 08:10 Furosemide (Lasix) 40 mg BID ORAL 06/01/20 18:00 06/26/20 08:59 06/02/20 17:11 Levofloxacin (Levaquin) 250 mg DAILY ORAL 06/02/20 09:00 06/09/20 08:59 06/02/20 08:09 Metolazone (Zaroxolyn) 5 mg DAILY ORAL 06/01/20 12:00 07/01/20 11:59 06/02/20 08:09 Mirtazapine (Remeron) 7.5 mg BEDTIME ORAL 06/02/20 21:00 08/31/20 20:59 06/02/20 21:33 Pantoprazole (Protonix) 40 mg Q12HR ORAL 05/22/20 21:00 06/21/20 20:59 06/02/20 21:33 Neurological/Psychiatric: Reports: anxiety, depressed; Denies: no symptoms, emotional problems, headache, numbness, paresthesia, pre-existing deficit, seizure, tingling, tremors, weakness, other Allergies: Coded Allergies: No Known Allergies (Unverified , 05/19/20) Objective Data Height (Feet): 5 Height (Inches): 0.00 Weight (Pounds): 100 General Appearance: no apparent distress Additional Comments: alert and oriented times self, place, and situation. Mood is anxious. Affect is blunted, congruent with mood. Thought process is concrete. Thought content, there is no suicidal or homicidal ideation. Cognition is intact. Insight and judgment are fair. ASSESSMENT: [place] I Anxiety disorder. Insomnia. [place] II Deferred. [place] III As above. [place] IV Low. [place] V 50. PLAN: 1. Remeron 7.5 mg at bedtime. 2. Provide the patient with reality orientation and supportive therapy. Assessment/Plan Status: progressing Anahy Avendano MD Jun 02, 2020 23:25
[2020-06-03] VITALS: BP 110/67
[2020-06-03 03:49] LABS: HEMATOCRIT 35.8 % (37.0-47.0); HEMOGLOBIN 12.1 G/DL (12.0-16.0); MEAN CORPUSCULAR VOLUME 85 FL (80-99); PLATELET COUNT 436 K/UL (150-450); RED BLOOD COUNT 4.22 M/UL (4.20-5.40); RED CELL DISTRIBUTION WIDTH 13.8 % (11.6-14.8); WHITE BLOOD COUNT 13.2 K/UL (4.8-10.8)
[2020-06-03 04:00] VITALS: BP 110/67
[2020-06-03 04:45] LABS: ALBUMIN 2.2 G/DL (3.4-5.0); ALBUMIN/GLOBULIN RATIO 0.5 (1.0-2.7); BILIRUBIN,TOTAL 0.3 MG/DL (0.2-1.0); CALCIUM 8.9 MG/DL (8.5-10.1); CREATININE 1.4 MG/DL (0.55-1.30); POTASSIUM 3.7 MMOL/L (3.5-5.1)
--- NOTE | 2020-06-03 06:44 | Hematology/Onc Progress Note ---
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– [place] --> at this time STOP desatanib (also is the likely cause of pleural effusions) --> no is s/p thora per pulm/cards --> wbc trend 18->7->10 --> hgb 11.5->12->13 --> ABX ceftriaxone-->off --> bipap, thora prn --> needs molecular and cytogenectic response for CML, f/u oncologist outpatient # Bilateral pleural effusion --> as per pulm, is on bipap --> thora as needed --> repeat thora prn 05/29 # HTN --> hydralazine and lisinopril --> sbp goal <140 # Dehydration --> goal of euvolemia # Elevated ddimer --> duplex lower ext r/o dvt==>neg # Dvt ppx lovenox sq Appreciate consultation and zachariah RN Subjective Constitutional: Denies: no symptoms, chills, fever, malaise, weakness, other HEENT: Denies: no symptoms, eye pain, blurred vision, tearing, double vision, ear pain, ear discharge, nose pain, nose congestion, throat pain, throat swelling, mouth pain, mouth swelling, other Cardiovascular: Denies: no symptoms, chest pain, edema, irregular heart rate, lightheadedness, palpitations, syncope, other Gastrointestinal/Abdominal: Denies: no symptoms, abdomen distended, abdominal pain, black stools, tarry stools, blood in stool, constipated, diarrhea, difficulty swallowing, nausea, poor appetite, poor fluid intake, rectal bleeding, vomiting, other Genitourinary: Denies: no symptoms, burning, discharge, frequency, flank pain, hematuria, incontinence, pain, urgency, other Neurologic/Psychiatric: Denies: no symptoms, anxiety, depressed, emotional problems, headache, numbness, paresthesia, pre-existing deficit, seizure, tingling, tremors, weakness, other Endocrine: Denies: no symptoms, excessive sweating, flushing, intolerance to cold, intolerance to heat, increased hunger, increased thirst, increased urine, unexplained weight gain, unexplained weight loss, other Allergies: Coded Allergies: No Known Allergies (Unverified , 05/19/20) Subjective 05/21 labs are noted, no bleeding, with pleural effusions due to desatanbib, s/p thora 05/22 labs are noted, no bleeding, on bipap, i dw her today to stop her med at once 05/24 wbc is improved, continue on ctx for one more day per id, bipap 05/26 have ordered for repeat cxr this am to reeval pleural effusions, labs noted 05/27 with b/l pleural effusions, aware from pulm, thora prn 05/28 has been refusing scds, thus will start lovenox today, breathing better s/p thora 05/29 with nonrebreather, for thora today, no night sweats, meds noted 05/31 remains on bipap, meds reviewed, off desatanib, worse effusion r>l 06/01 on bipap this am, labs pending for am 06/02 unable to wean off facemask, requiring it, will dw sister today 06/03 labs reviewed, meds noted, continues to be bipap support Objective Objective Current Medications Medications (Trade) Dose Ordered Sig/Jennie Route PRN Reason Start Time Stop Time Status Last Admin Dose Admin Acetaminophen (Tylenol) 500 mg Q6H PRN ORAL Mild Pain (Pain Scale 1-3) 05/19/20 16:45 06/18/20 16:44 Albuterol/ Ipratropium (Albuterol/ Ipratropium) 3 ml Q4H PRN HHN Shortness of Breath 05/31/20 08:45 06/05/20 08:44 Clonidine HCl (Catapres Tab) 0.1 mg Q4H PRN ORAL SBP > 170 05/24/20 13:15 08/22/20 13:14 Docusate Sodium (Colace) 100 mg TWICE A DAY ORAL 05/22/20 18:00 06/21/20 17:59 06/02/20 17:11 Enoxaparin Sodium (Lovenox) 40 mg DAILY SUBQ 06/02/20 09:00 08/31/20 08:59 06/02/20 08:10 Furosemide (Lasix) 40 mg BID ORAL 06/01/20 18:00 06/26/20 08:59 06/02/20 17:11 Levofloxacin (Levaquin) 250 mg DAILY ORAL 06/02/20 09:00 06/09/20 08:59 06/02/20 08:09 Metolazone (Zaroxolyn) 5 mg DAILY ORAL 06/01/20 12:00 07/01/20 11:59 06/02/20 08:09 Mirtazapine (Remeron) 7.5 mg BEDTIME ORAL 06/02/20 21:00 08/31/20 20:59 06/02/20 21:33 Pantoprazole (Protonix) 40 mg Q12HR ORAL 05/22/20 21:00 06/21/20 20:59 06/02/20 21:33 Last 24 Hour Vital Signs Date Time Temp Pulse Resp B/P (MAP) Pulse Ox O2 Delivery O2 Flow Rate FiO2 06/03/20 04:00 Non-Rebreather 15.0 Non-Rebreather 15.0 Non-Rebreather 15.0 06/03/20 04:00 100 06/03/20 04:00 97.6 104 25 110/67 (81) 92 06/03/20 03:31 106 06/03/20 02:45 101 29 93 100 06/03/20 00:00 100 06/03/20 00:00 Non-Rebreather 15.0 Non-Rebreather 15.0 Non-Rebreather 15.0 06/03/20 00:00 97.7 104 25 110/67 (81) 92 06/02/20 23:27 105 06/02/20 22:02 106 38 92 100 06/02/20 20:00 15.0 06/02/20 20:00 Non-Rebreather 15.0 Non-Rebreather 15.0 Non-Rebreather 15.0 06/02/20 20:00 97.8 101 25 139/75 (96) 92 06/02/20 19:42 105 06/02/20 18:45 108 28 92 Non-Rebreather 15.0 100 06/02/20 17:33 101 46 94 100 06/02/20 17:32 94 Bi-Pap 100 06/02/20 16:00 Non-Rebreather 15.0 Non-Rebreather 15.0 Non-Rebreather 15.0 06/02/20 16:00 15.0 06/02/20 16:00 96.6 101 25 124/80 (95) 92 06/02/20 15:32 99 06/02/20 12:00 15.0 06/02/20 12:00 96.3 104 24 138/85 (102) 93 06/02/20 12:00 Non-Rebreather 15.0 Non-Rebreather 15.0 Non-Rebreather 15.0 06/02/20 11:46 101 06/02/20 09:20 100 96 06/02/20 08:20 101 39 93 100 06/02/20 08:00 96.4 108 25 141/74 (96) 91 06/02/20 07:55 15.0 06/02/20 07:53 107 06/02/20 07:53 Non-Rebreather 15.0 Non-Rebreather 15.0 Non-Rebreather 15.0 06/02/20 07:00 112 30 91 Non-Rebreather 15.0 100 06/02/20 07:00 91 Non-Rebreather 15.0 100 06/02/20 04:00 98.0 107 24 131/78 (95) 94 06/02/20 04:00 105 06/02/20 04:00 15.0 06/02/20 04:00 Non-Rebreather 15.0 Non-Rebreather 15.0 Non-Rebreather 15.0 06/02/20 00:00 98.2 102 28 143/79 (100) 94 06/02/20 00:00 Non-Rebreather 15.0 Non-Rebreather 15.0 Non-Rebreather 15.0 06/01/20 23:35 103 06/01/20 20:51 15.0 06/01/20 20:00 98.1 101 24 135/80 (98) 94 06/01/20 20:00 Non-Rebreather 15.0 Non-Rebreather 15.0 Non-Rebreather 15.0 06/01/20 20:00 103 06/01/20 19:12 93 Non-Rebreather 15.0 100 06/01/20 19:12 105 26 97 Non-Rebreather 15.0 100 06/01/20 16:00 96.4 95 26 124/72 (89) 95 06/01/20 16:00 15.0 06/01/20 15:55 Bi-pap 15.0 Non-Rebreather 15.0 Non-Rebreather 06/01/20 15:15 98 06/01/20 12:00 15.0 06/01/20 12:00 Bi-pap 15.0 Non-Rebreather 15.0 Non-Rebreather 06/01/20 11:56 96.1 106 31 106/57 (73) 98 06/01/20 11:51 100 06/01/20 11:15 99 98 06/01/20 08:00 100 06/01/20 08:00 Bi-pap 100.0 Bi-pap 100.0 Bi-pap 06/01/20 08:00 97.0 104 33 110/76 (87) 96 06/01/20 07:26 102 06/01/20 07:15 101 35 97 100 06/01/20 07:15 101 35 97 Bi-Pap 100 06/01/20 07:15 97 Bi-Pap 100 Intake and Output 06/02/20 06/03/20 19:00 07:00 Intake Total 400 ml 250 ml Output Total 700 ml 500 ml Balance -300 ml -250 ml Intake Oral 400 ml 250 ml Output Urine Total 700 ml 500 ml Labs Test 05/31/20 12:40 05/31/20 17:10 06/01/20 05:27 06/03/20 02:50 Arterial Blood pH 7.326 (7.350-7.450) 7.394 (7.350-7.450) Arterial Blood Partial Pressure CO2 59.0 mmHg (35.0-45.0) 49.5 mmHg (35.0-45.0) Arterial Blood Partial Pressure O2 60.0 mmHg (75.0-100.0) 81.1 mmHg (75.0-100.0) Arterial Blood HCO3 30.1 mmol/L (22.0-26.0) 29.6 mmol/L (22.0-26.0) Arterial Blood Oxygen Saturation 88.5 % (95-100) 95.3 % (95-100) Arterial Blood Base Excess 2.7 (-2-2) 3.8 (-2-2) Sammy Test Positive Positive White Blood Count 13.0 K/UL (4.8-10.8) 13.2 K/UL (4.8-10.8) Red Blood Count 4.62 M/UL (4.20-5.40) 4.22 M/UL (4.20-5.40) Hemoglobin 12.9 G/DL (12.0-16.0) 12.1 G/DL (12.0-16.0) Hematocrit 40.1 % (37.0-47.0) 35.8 % (37.0-47.0) Mean Corpuscular Volume 87 FL (80-99) 85 FL (80-99) Mean Corpuscular Hemoglobin 28.0 PG (27.0-31.0) 28.7 PG (27.0-31.0) Mean Corpuscular Hemoglobin Concent 32.2 G/DL (32.0-36.0) 33.8 G/DL (32.0-36.0) Red Cell Distribution Width 14.0 % (11.6-14.8) 13.8 % (11.6-14.8) Platelet Count 408 K/UL (150-450) 436 K/UL (150-450) Mean Platelet Volume 5.9 FL (6.5-10.1) 6.1 FL (6.5-10.1) Neutrophils (%) (Auto) % (45.0-75.0) % (45.0-75.0) Lymphocytes (%) (Auto) % (20.0-45.0) % (20.0-45.0) Monocytes (%) (Auto) % (1.0-10.0) % (1.0-10.0) Eosinophils (%) (Auto) % (0.0-3.0) % (0.0-3.0) Basophils (%) (Auto) % (0.0-2.0) % (0.0-2.0) Differential Total Cells Counted 100 Neutrophils % (Manual) 92 % (45-75) Lymphocytes % (Manual) 3 % (20-45) Monocytes % (Manual) 4 % (1-10) Eosinophils % (Manual) 1 % (0-3) Basophils % (Manual) 0 % (0-2) Band Neutrophils 0 % (0-8) Platelet Estimate Adequate Platelet Morphology Normal Red Blood Cell Morphology Normal Sodium Level 136 MMOL/L (136-145) 136 MMOL/L (136-145) Potassium Level 4.4 MMOL/L (3.5-5.1) 3.7 MMOL/L (3.5-5.1) Chloride Level 99 MMOL/L (98-107) 95 MMOL/L (98-107) Carbon Dioxide Level 29 MMOL/L (21-32) 32 MMOL/L (21-32) Anion Gap 8 mmol/L (5-15) 9 mmol/L (5-15) Blood Urea Nitrogen 53 mg/dL (7-18) 63 mg/dL (7-18) Creatinine 1.3 MG/DL (0.55-1.30) 1.4 MG/DL (0.55-1.30) Estimat Glomerular Filtration Rate 41.6 mL/min (>60) 38.2 mL/min (>60) Glucose Level 212 MG/DL (74-106) 174 MG/DL (74-106) Calcium Level 9.5 MG/DL (8.5-10.1) 8.9 MG/DL (8.5-10.1) Phosphorus Level 4.2 MG/DL (2.5-4.9) 4.0 MG/DL (2.5-4.9) Magnesium Level 2.3 MG/DL (1.8-2.4) 2.0 MG/DL (1.8-2.4) Total Bilirubin 0.3 MG/DL (0.2-1.0) 0.3 MG/DL (0.2-1.0) Aspartate Amino Transf (AST/SGOT) 24 U/L (15-37) 27 U/L (15-37) Alanine Aminotransferase (ALT/SGPT) 17 U/L (12-78) 13 U/L (12-78) Alkaline Phosphatase 67 U/L (46-116) 64 U/L (46-116) C-Reactive Protein, Quantitative 18.9 mg/dL (0.00-0.90) Total Protein 7.1 G/DL (6.4-8.2) 6.5 G/DL (6.4-8.2) Albumin 2.4 G/DL (3.4-5.0) 2.2 G/DL (3.4-5.0) Globulin 4.7 g/dL 4.3 g/dL Albumin/Globulin Ratio 0.5 (1.0-2.7) 0.5 (1.0-2.7) Pro-B-Type Natriuretic Peptide 68699 pg/mL (0-125) Height (Feet): 5 Height (Inches): 0.00 Weight (Pounds): 100 Dionicio Higgins MD Jun 03, 2020 06:44
[2020-06-03 08:00] VITALS: BP 118/73
[2020-06-03] MEDS: Furosemide 40mg tab ORAL SCH ×2 (08:17→18:26)
[2020-06-03] MEDS: Docusate 100mg cap ORAL SCH ×2 (08:17→18:26)
[2020-06-03] MEDS: Enoxaparin 40mg Inj SUBQ SCH (08:19)
--- NOTE | 2020-06-03 09:45 | Nephrology Progress Note ---
Assessment/Plan Problem List: (1) ASHLEY (acute kidney injury) (2) Bilateral pleural effusion (3) Leukemia Assessment Imp: Acute renal failure, with sudden jump in serum creatinine to 2.7 History of leukemia Hypertension, now hypotensive Hyponatremia on admission, improved Bilateral pleural effusion. Status post paracentesis. Elevated troponin, most likely leak. Plan June 03: Discussed with Dr. Olson. Patient's pleural effusions continue to be a challenge. Patient on diuretics. Will watch renal parameters and electrolytes. Patient was already tapped twice. Continue per current management. June 02: No chemistry panel done today. Status unchanged. Remains on nonrebreathing mask. Will check lab tomorrow. Continue per pulmonary. June 01: Labs reviewed. Status unchanged. Remains on nonrebreathing mask. Will increase his Lasix to 40 twice daily. Stable electrolytes and renal parameters at this time. May 31: No chemistry panel done today. Patient still on nonrebreathing mask. Patient full code. Will check lab tomorrow. Patient's main issue is respiratory. May 30: Labs reviewed. Renal parameters stable. Continue per pulmonary. May 29: No chemistry panel done today. Remains on nonrebreather mask. Will order labs tomorrow. Continue per consultants. May 28: Serum creatinine up to 1.5. Remains on nonrebreather mask. Since admission had 3 thoracenteses for pleural effusion over the left and right. Respiratory status remains unstable. Continue per pulmonary. Will watch renal parameters. May 27: When seen the patient was on 100% nonrebreather mask. Renal panel within normal limit. Continue per consultants. Main problem remains respiratory. May 26: Renal parameters stable. Started on Lasix 40 mg daily. Continue to monitor renal parameters and electrolytes. Continue per consultants. May 25: Renal parameters within normal limit. Another dose of IV Lasix given. Continue to monitor electrolytes. Continue per consultants. May 24: Renal parameters normalized. Will give the Lasix 40 mg IV once. 1 dose of Kayexalate for hyperkalemia. Continue to monitor renal parameters. Previously: Today renal parameters are improved. Serum creatinine down to 1.6 from 2.7 Continue to hold lisinopril Continue to hold Lasix Half Normal saline 100 cc an hour one liter only was given yesterday Albumin bolus given yesterday, repeat as needed Monitor renal parameters Avoid nephrotoxic's Subjective ROS Limited/Unobtainable: No Constitutional: Reports: malaise, weakness Objective Objective Last 24 Hour Vital Signs Date Time Temp Pulse Resp B/P (MAP) Pulse Ox O2 Delivery O2 Flow Rate FiO2 06/03/20 08:00 97.3 110 24 118/73 (88) 90 06/03/20 08:00 15.0 06/03/20 08:00 Non-Rebreather 15.0 Non-Rebreather 06/03/20 07:50 110 24 90 Non-Rebreather 15.0 100 06/03/20 07:50 90 Non-Rebreather 15.0 100 06/03/20 04:00 Non-Rebreather 15.0 Non-Rebreather 15.0 Non-Rebreather 15.0 06/03/20 04:00 100 06/03/20 04:00 97.6 104 25 110/67 (81) 92 06/03/20 03:31 106 06/03/20 02:45 101 29 93 100 06/03/20 00:00 100 06/03/20 00:00 Non-Rebreather 15.0 Non-Rebreather 15.0 Non-Rebreather 15.0 06/03/20 00:00 97.7 104 25 110/67 (81) 92 06/02/20 23:27 105 06/02/20 22:02 106 38 92 100 06/02/20 20:00 15.0 06/02/20 20:00 Non-Rebreather 15.0 Non-Rebreather 15.0 Non-Rebreather 15.0 06/02/20 20:00 97.8 101 25 139/75 (96) 92 06/02/20 19:42 105 06/02/20 18:45 108 28 92 Non-Rebreather 15.0 100 06/02/20 17:33 101 46 94 100 06/02/20 17:32 94 Bi-Pap 100 06/02/20 16:00 Non-Rebreather 15.0 Non-Rebreather 15.0 Non-Rebreather 15.0 06/02/20 16:00 15.0 06/02/20 16:00 96.6 101 25 124/80 (95) 92 06/02/20 15:32 99 06/02/20 12:00 15.0 06/02/20 12:00 96.3 104 24 138/85 (102) 93 06/02/20 12:00 Non-Rebreather 15.0 Non-Rebreather 15.0 Non-Rebreather 15.0 06/02/20 11:46 101 Intake and Output 06/02/20 06/03/20 19:00 07:00 Intake Total 400 ml 250 ml Output Total 700 ml 500 ml Balance -300 ml -250 ml Intake Oral 400 ml 250 ml Output Urine Total 700 ml 500 ml Laboratory Tests 06/03/20 02:50: White Blood Count 13.2H, Red Blood Count 4.22, Hemoglobin 12.1, Hematocrit 35.8L , Mean Corpuscular Volume 85, Mean Corpuscular Hemoglobin 28.7, Mean Corpuscular Hemoglobin Concent 33.8, Red Cell Distribution Width 13.8, Platelet Count 436, Mean Platelet Volume 6.1L, Neutrophils (%) (Auto) , Lymphocytes (%) (Auto) , Monocytes (%) (Auto) , Eosinophils (%) (Auto) , Basophils (%) (Auto) , Sodium Level 136, Potassium Level 3.7, Chloride Level 95L, Carbon Dioxide Level 32, Anion Gap 9, Blood Urea Nitrogen 63H, Creatinine 1.4H, Estimat Glomerular Filtration Rate 38.2, Glucose Level 174H, Calcium Level 8.9, Phosphorus Level 4.0, Magnesium Level 2.0, Total Bilirubin 0.3, Aspartate Amino Transf (AST/SGOT) 27, Alanine Aminotransferase (ALT/SGPT) 13, Alkaline Phosphatase 64, Pro-B-Type Natriuretic Peptide 70310I, Total Protein 6.5, Albumin 2.2L, Globulin 4.3, Albumin/Globulin Ratio 0.5L 06/03/20 08:12: Arterial Blood pH 7.423, Arterial Blood Partial Pressure CO2 53.9H, Arterial Blood Partial Pressure O2 52.4L, Arterial Blood HCO3 34.4H, Arterial Blood Oxygen Saturation 86.2*L, Arterial Blood Base Excess 8.3H, Sammy Test Positive Height (Feet): 5 Height (Inches): 0.00 Weight (Pounds): 100 General Appearance: mild distress EENT: other - Not on BiPAP Cardiovascular: tachycardia Respiratory/Chest: decreased breath sounds Abdomen: distended Montrell Carpio MD Jun 03, 2020 09:45
--- NOTE | 2020-06-03 10:37 | Pulmonology Progress Note ---
Subjective ROS Limited/Unobtainable: No Interval Events: Diuresing well; back on BiPAP Constitutional: Reports: no symptoms HEENT: Repors: no symptoms Respiratory: Reports: dry cough Gastrointestinal/Abdominal: Reports: no symptoms Genitourinary: Reports: no symptoms Neurologic: Reports: no symptoms Musculoskeletal: Denies: pain Allergies: Coded Allergies: No Known Allergies (Unverified , 05/19/20) Objective Last 24 Hour Vital Signs Date Time Temp Pulse Resp B/P (MAP) Pulse Ox O2 Delivery O2 Flow Rate FiO2 06/03/20 08:40 103 55 92 100 06/03/20 08:00 97.3 110 24 118/73 (88) 90 06/03/20 08:00 15.0 06/03/20 08:00 Non-Rebreather 15.0 Non-Rebreather 06/03/20 07:50 110 24 90 Non-Rebreather 15.0 100 06/03/20 07:50 90 Non-Rebreather 15.0 100 06/03/20 04:00 Non-Rebreather 15.0 Non-Rebreather 15.0 Non-Rebreather 15.0 06/03/20 04:00 100 06/03/20 04:00 97.6 104 25 110/67 (81) 92 06/03/20 03:31 106 06/03/20 02:45 101 29 93 100 06/03/20 00:00 100 06/03/20 00:00 Non-Rebreather 15.0 Non-Rebreather 15.0 Non-Rebreather 15.0 06/03/20 00:00 97.7 104 25 110/67 (81) 92 06/02/20 23:27 105 06/02/20 22:02 106 38 92 100 06/02/20 20:00 15.0 06/02/20 20:00 Non-Rebreather 15.0 Non-Rebreather 15.0 Non-Rebreather 15.0 06/02/20 20:00 97.8 101 25 139/75 (96) 92 06/02/20 19:42 105 06/02/20 18:45 108 28 92 Non-Rebreather 15.0 100 06/02/20 17:33 101 46 94 100 06/02/20 17:32 94 Bi-Pap 100 06/02/20 16:00 Non-Rebreather 15.0 Non-Rebreather 15.0 Non-Rebreather 15.0 06/02/20 16:00 15.0 06/02/20 16:00 96.6 101 25 124/80 (95) 92 06/02/20 15:32 99 06/02/20 12:00 15.0 06/02/20 12:00 96.3 104 24 138/85 (102) 93 06/02/20 12:00 Non-Rebreather 15.0 Non-Rebreather 15.0 Non-Rebreather 15.0 06/02/20 11:46 101 Intake and Output 06/02/20 06/03/20 19:00 07:00 Intake Total 400 ml 250 ml Output Total 700 ml 500 ml Balance -300 ml -250 ml Intake Oral 400 ml 250 ml Output Urine Total 700 ml 500 ml General Appearance: no acute distress Respiratory: chest wall non-tender, normal breath sounds, no respiratory distress, no accessory muscle use, decreased breath sounds Cardiovascular: normal peripheral pulses, normal rate Abdomen: normal bowel sounds Extremities: no cyanosis, no clubbing, no edema Laboratory Tests 06/03/20 02:50: White Blood Count 13.2H, Red Blood Count 4.22, Hemoglobin 12.1, Hematocrit 35.8L , Mean Corpuscular Volume 85, Mean Corpuscular Hemoglobin 28.7, Mean Corpuscular Hemoglobin Concent 33.8, Red Cell Distribution Width 13.8, Platelet Count 436, Mean Platelet Volume 6.1L, Neutrophils (%) (Auto) , Lymphocytes (%) (Auto) , Monocytes (%) (Auto) , Eosinophils (%) (Auto) , Basophils (%) (Auto) , Sodium Level 136, Potassium Level 3.7, Chloride Level 95L, Carbon Dioxide Level 32, Anion Gap 9, Blood Urea Nitrogen 63H, Creatinine 1.4H, Estimat Glomerular Filtration Rate 38.2, Glucose Level 174H, Calcium Level 8.9, Phosphorus Level 4. 0, Magnesium Level 2.0, Total Bilirubin 0.3, Aspartate Amino Transf (AST/SGOT) 27, Alanine Aminotransferase (ALT/SGPT) 13, Alkaline Phosphatase 64, Pro-B-Type Natriuretic Peptide 45002G, Total Protein 6.5, Albumin 2.2L, Globulin 4.3, Albumin/Globulin Ratio 0.5L 06/03/20 08:12: Arterial Blood pH 7.423, Arterial Blood Partial Pressure CO2 53.9H, Arterial Blood Partial Pressure O2 52.4L, Arterial Blood HCO3 34.4H, Arterial Blood Oxygen Saturation 86.2*L, Arterial Blood Base Excess 8.3H, Sammy Test Positive Current Medications Medications (Trade) Dose Ordered Sig/Jennie Route PRN Reason Start Time Stop Time Status Last Admin Dose Admin Acetaminophen (Tylenol) 500 mg Q6H PRN ORAL Mild Pain (Pain Scale 1-3) 05/19/20 16:45 06/18/20 16:44 Albuterol/ Ipratropium (Albuterol/ Ipratropium) 3 ml Q4H PRN HHN Shortness of Breath 05/31/20 08:45 06/05/20 08:44 Clonidine HCl (Catapres Tab) 0.1 mg Q4H PRN ORAL SBP > 170 05/24/20 13:15 08/22/20 13:14 Docusate Sodium (Colace) 100 mg TWICE A DAY ORAL 05/22/20 18:00 06/21/20 17:59 06/03/20 08:17 Enoxaparin Sodium (Lovenox) 40 mg DAILY SUBQ 06/02/20 09:00 08/31/20 08:59 06/03/20 08:19 Furosemide (Lasix) 40 mg BID ORAL 06/01/20 18:00 06/26/20 08:59 06/03/20 08:17 Levofloxacin (Levaquin) 250 mg DAILY ORAL 06/02/20 09:00 06/09/20 08:59 06/03/20 08:17 Metolazone (Zaroxolyn) 5 mg DAILY ORAL 06/01/20 12:00 07/01/20 11:59 06/03/20 08:17 Mirtazapine (Remeron) 7.5 mg BEDTIME ORAL 06/02/20 21:00 08/31/20 20:59 06/02/20 21:33 Pantoprazole (Protonix) 40 mg Q12HR ORAL 05/22/20 21:00 06/21/20 20:59 06/03/20 08:17 Assessment/Plan Assessment/Plan IMPRESSION: 1. History of CML, on dasatinib. 2. Possible pneumonia. 3. Large pleural effusion, s/p thoracentesis. 4. Hypertension. 5. Elevated D-dimer DISCUSSION: S/p Bilateral thoracentesis, CXR much improved; Now back on BiPAp Will consider Pleurex Will continue diuresis Agree with broad-spectrum antibiotics. Michelet Hernandez Omar Syed MD Jun 03, 2020 10:37
[2020-06-03 12:00] VITALS: BP 91/62
--- NOTE | 2020-06-03 12:41 | Diagnostic Imaging Report ---
Indication: Dyspnea Technique: One view of the chest Comparison: 05/31/2020 Findings: Bilateral large pleural effusions are again demonstrated, slightly increased. Bilateral interstitial and airspace infiltrates versus edema again demonstrated, appearing largely unchanged to slightly improved. Heart size is difficult to assess Impression: Slightly increased large bilateral pleural effusions Stable to slightly improved bilateral interstitial and airspace edema versus infiltrates
--- NOTE | 2020-06-03 13:52 | Cardiac Electrophysiology PN ---
Assessment/Plan Assessment/Plan 1. Accelerated hypertension. Now off Lisinopril for acute renal failure On Lasix 40 po bid and Zaroxyline and prn Clonidine 2. Troponin leak. No CP, ECG non ischemic and likely due to renal failure 3. Bilateral pleural effusions. S/P Right side thoracentesis x 2. FU by Dr. Olson. S/P Left thoracentesis again x2 last one 05/29/20. Now on NRB FM 4. Hyponatremia. 5. CML x 5 years, sees oncologist in [facility] area DCed desatanib (also is the likely cause of pleural effusions) Per Dr Dolan 6. Acute renal failure with sudden JUMP in creatinine to 2.7. FU Dr Carpio. Better after iv fluid, Albumin and off Lisinopril. Cr now 1.0 DW RN Subjective Subjective S/P 2 Right sided thoracentesis ( 1.2 liters of serosanguineous fluid ) on 05/21/20 and 05/26/20 S/P 2 Left thoracentesis last one 05/29/20 On BIPAP again today Objective Last 24 Hour Vital Signs Date Time Temp Pulse Resp B/P (MAP) Pulse Ox O2 Delivery O2 Flow Rate FiO2 06/03/20 12:04 Non-Rebreather 15.0 Non-Rebreather 06/03/20 12:00 100 06/03/20 12:00 103 06/03/20 12:00 97.5 109 26 91/62 (72) 95 06/03/20 10:30 107 49 92 100 06/03/20 10:00 100 06/03/20 08:40 103 55 92 100 06/03/20 08:00 97.3 110 24 118/73 (88) 90 06/03/20 08:00 15.0 06/03/20 08:00 Non-Rebreather 15.0 Non-Rebreather 06/03/20 07:50 110 24 90 Non-Rebreather 15.0 100 06/03/20 07:50 90 Non-Rebreather 15.0 100 06/03/20 07:38 112 06/03/20 04:00 Non-Rebreather 15.0 Non-Rebreather 15.0 Non-Rebreather 15.0 06/03/20 04:00 100 06/03/20 04:00 97.6 104 25 110/67 (81) 92 06/03/20 03:31 106 06/03/20 02:45 101 29 93 100 06/03/20 00:00 100 06/03/20 00:00 Non-Rebreather 15.0 Non-Rebreather 15.0 Non-Rebreather 15.0 06/03/20 00:00 97.7 104 25 110/67 (81) 92 06/02/20 23:27 105 06/02/20 22:02 106 38 92 100 06/02/20 20:00 15.0 06/02/20 20:00 Non-Rebreather 15.0 Non-Rebreather 15.0 Non-Rebreather 15.0 06/02/20 20:00 97.8 101 25 139/75 (96) 92 06/02/20 19:42 105 06/02/20 18:45 108 28 92 Non-Rebreather 15.0 100 06/02/20 17:33 101 46 94 100 06/02/20 17:32 94 Bi-Pap 100 06/02/20 16:00 Non-Rebreather 15.0 Non-Rebreather 15.0 Non-Rebreather 15.0 06/02/20 16:00 15.0 06/02/20 16:00 96.6 101 25 124/80 (95) 92 06/02/20 15:32 99 Intake and Output 06/02/20 06/03/20 19:00 07:00 Intake Total 400 ml 250 ml Output Total 700 ml 500 ml Balance -300 ml -250 ml Intake Oral 400 ml 250 ml Output Urine Total 700 ml 500 ml Laboratory Tests Test 06/03/20 02:50 06/03/20 08:12 White Blood Count 13.2 K/UL (4.8-10.8) H Red Blood Count 4.22 M/UL (4.20-5.40) Hemoglobin 12.1 G/DL (12.0-16.0) Hematocrit 35.8 % (37.0-47.0) L Mean Corpuscular Volume 85 FL (80-99) Mean Corpuscular Hemoglobin 28.7 PG (27.0-31.0) Mean Corpuscular Hemoglobin Concent 33.8 G/DL (32.0-36.0) Red Cell Distribution Width 13.8 % (11.6-14.8) Platelet Count 436 K/UL (150-450) Mean Platelet Volume 6.1 FL (6.5-10.1) L Neutrophils (%) (Auto) % (45.0-75.0) Lymphocytes (%) (Auto) % (20.0-45.0) Monocytes (%) (Auto) % (1.0-10.0) Eosinophils (%) (Auto) % (0.0-3.0) Basophils (%) (Auto) % (0.0-2.0) Sodium Level 136 MMOL/L (136-145) Potassium Level 3.7 MMOL/L (3.5-5.1) Chloride Level 95 MMOL/L (98-107) L Carbon Dioxide Level 32 MMOL/L (21-32) Anion Gap 9 mmol/L (5-15) Blood Urea Nitrogen 63 mg/dL (7-18) H Creatinine 1.4 MG/DL (0.55-1.30) H Estimat Glomerular Filtration Rate 38.2 mL/min (>60) Glucose Level 174 MG/DL (74-106) H Calcium Level 8.9 MG/DL (8.5-10.1) Phosphorus Level 4.0 MG/DL (2.5-4.9) Magnesium Level 2.0 MG/DL (1.8-2.4) Total Bilirubin 0.3 MG/DL (0.2-1.0) Aspartate Amino Transf (AST/SGOT) 27 U/L (15-37) Alanine Aminotransferase (ALT/SGPT) 13 U/L (12-78) Alkaline Phosphatase 64 U/L (46-116) Pro-B-Type Natriuretic Peptide 07542 pg/mL (0-125) H Total Protein 6.5 G/DL (6.4-8.2) Albumin 2.2 G/DL (3.4-5.0) L Globulin 4.3 g/dL Albumin/Globulin Ratio 0.5 (1.0-2.7) L Arterial Blood pH 7.423 (7.350-7.450) Arterial Blood Partial Pressure CO2 53.9 mmHg (35.0-45.0) H Arterial Blood Partial Pressure O2 52.4 mmHg (75.0-100.0) L Arterial Blood HCO3 34.4 mmol/L (22.0-26.0) H Arterial Blood Oxygen Saturation 86.2 % (95-100) *L Arterial Blood Base Excess 8.3 (-2-2) H Sammy Test Positive Objective HEAD AND NECK: No JVD. On Venturi Mask LUNGS: Decreased breath sounds. CARDIOVASCULAR: Regular S1 and S2 and tachycardic. ABDOMEN: Soft. EXTREMITIES: No pitting edema. Cristian England MD Jun 03, 2020 13:52
--- NOTE | 2020-06-03 15:09 | Infectious Diseases Prog Note ---
Assessment/Plan Assessment/Plan IMPRESSION: Leukocytosis, systemic inflammatory response syndrome or sepsis, Recurrent pleural effusion, CML, Accelerated hypertension, Elevation of troponin. Hypoxemia RECOMMENDATION: Continue PO Levaquin May need pleurodesis Subjective ROS Limited/Unobtainable: Yes Constitutional: Denies: fever Respiratory: Reports: shortness of breath Allergies: Coded Allergies: No Known Allergies (Unverified , 05/19/20) Objective Last 24 Hour Vital Signs Date Time Temp Pulse Resp B/P (MAP) Pulse Ox O2 Delivery O2 Flow Rate FiO2 06/03/20 14:32 108 52 93 Bi-Pap 100 106 41 95 100 06/03/20 14:00 40 94 06/03/20 12:04 Non-Rebreather 15.0 Non-Rebreather 06/03/20 12:00 100 06/03/20 12:00 103 06/03/20 12:00 97.5 109 26 91/62 (72) 95 06/03/20 10:30 107 49 92 100 06/03/20 10:00 100 06/03/20 08:40 103 55 92 100 06/03/20 08:00 97.3 110 24 118/73 (88) 90 06/03/20 08:00 15.0 06/03/20 08:00 Non-Rebreather 15.0 Non-Rebreather 06/03/20 07:50 110 24 90 Non-Rebreather 15.0 100 06/03/20 07:50 90 Non-Rebreather 15.0 100 06/03/20 07:38 112 06/03/20 04:00 Non-Rebreather 15.0 Non-Rebreather 15.0 Non-Rebreather 15.0 06/03/20 04:00 100 06/03/20 04:00 97.6 104 25 110/67 (81) 92 06/03/20 03:31 106 06/03/20 02:45 101 29 93 100 06/03/20 00:00 100 06/03/20 00:00 Non-Rebreather 15.0 Non-Rebreather 15.0 Non-Rebreather 15.0 06/03/20 00:00 97.7 104 25 110/67 (81) 92 06/02/20 23:27 105 06/02/20 22:02 106 38 92 100 06/02/20 20:00 15.0 06/02/20 20:00 Non-Rebreather 15.0 Non-Rebreather 15.0 Non-Rebreather 15.0 06/02/20 20:00 97.8 101 25 139/75 (96) 92 06/02/20 19:42 105 06/02/20 18:45 108 28 92 Non-Rebreather 15.0 100 06/02/20 17:33 101 46 94 100 06/02/20 17:32 94 Bi-Pap 100 06/02/20 16:00 Non-Rebreather 15.0 Non-Rebreather 15.0 Non-Rebreather 15.0 06/02/20 16:00 15.0 06/02/20 16:00 96.6 101 25 124/80 (95) 92 06/02/20 15:32 99 Height (Feet): 5 Height (Inches): 0.00 Weight (Pounds): 100 HEENT: mucous membranes moist Respiratory/Chest: decreased breath sounds, other - on BIPAP Cardiovascular: tachycardia Abdomen: soft, non tender Extremities: no edema Neurologic/Psychiatric: alert, oriented x 3, responsive Laboratory Tests Test 06/03/20 02:50 06/03/20 08:12 White Blood Count 13.2 K/UL (4.8-10.8) H Red Blood Count 4.22 M/UL (4.20-5.40) Hemoglobin 12.1 G/DL (12.0-16.0) Hematocrit 35.8 % (37.0-47.0) L Mean Corpuscular Volume 85 FL (80-99) Mean Corpuscular Hemoglobin 28.7 PG (27.0-31.0) Mean Corpuscular Hemoglobin Concent 33.8 G/DL (32.0-36.0) Red Cell Distribution Width 13.8 % (11.6-14.8) Platelet Count 436 K/UL (150-450) Mean Platelet Volume 6.1 FL (6.5-10.1) L Neutrophils (%) (Auto) % (45.0-75.0) Lymphocytes (%) (Auto) % (20.0-45.0) Monocytes (%) (Auto) % (1.0-10.0) Eosinophils (%) (Auto) % (0.0-3.0) Basophils (%) (Auto) % (0.0-2.0) Sodium Level 136 MMOL/L (136-145) Potassium Level 3.7 MMOL/L (3.5-5.1) Chloride Level 95 MMOL/L (98-107) L Carbon Dioxide Level 32 MMOL/L (21-32) Anion Gap 9 mmol/L (5-15) Blood Urea Nitrogen 63 mg/dL (7-18) H Creatinine 1.4 MG/DL (0.55-1.30) H Estimat Glomerular Filtration Rate 38.2 mL/min (>60) Glucose Level 174 MG/DL (74-106) H Calcium Level 8.9 MG/DL (8.5-10.1) Phosphorus Level 4.0 MG/DL (2.5-4.9) Magnesium Level 2.0 MG/DL (1.8-2.4) Total Bilirubin 0.3 MG/DL (0.2-1.0) Aspartate Amino Transf (AST/SGOT) 27 U/L (15-37) Alanine Aminotransferase (ALT/SGPT) 13 U/L (12-78) Alkaline Phosphatase 64 U/L (46-116) Pro-B-Type Natriuretic Peptide 23607 pg/mL (0-125) H Total Protein 6.5 G/DL (6.4-8.2) Albumin 2.2 G/DL (3.4-5.0) L Globulin 4.3 g/dL Albumin/Globulin Ratio 0.5 (1.0-2.7) L Arterial Blood pH 7.423 (7.350-7.450) Arterial Blood Partial Pressure CO2 53.9 mmHg (35.0-45.0) H Arterial Blood Partial Pressure O2 52.4 mmHg (75.0-100.0) L Arterial Blood HCO3 34.4 mmol/L (22.0-26.0) H Arterial Blood Oxygen Saturation 86.2 % (95-100) *L Arterial Blood Base Excess 8.3 (-2-2) H Sammy Test Positive Current Medications Medications (Trade) Dose Ordered Sig/Jennie Route PRN Reason Start Time Stop Time Status Last Admin Dose Admin Acetaminophen (Tylenol) 500 mg Q6H PRN ORAL Mild Pain (Pain Scale 1-3) 05/19/20 16:45 06/18/20 16:44 Albuterol/ Ipratropium (Albuterol/ Ipratropium) 3 ml Q4H PRN HHN Shortness of Breath 05/31/20 08:45 06/05/20 08:44 06/03/20 14:31 Clonidine HCl (Catapres Tab) 0.1 mg Q4H PRN ORAL SBP > 170 05/24/20 13:15 08/22/20 13:14 Docusate Sodium (Colace) 100 mg TWICE A DAY ORAL 05/22/20 18:00 06/21/20 17:59 06/03/20 08:17 Enoxaparin Sodium (Lovenox) 40 mg DAILY SUBQ 06/02/20 09:00 08/31/20 08:59 06/03/20 08:19 Furosemide (Lasix) 40 mg BID ORAL 06/01/20 18:00 06/26/20 08:59 06/03/20 08:17 Levofloxacin (Levaquin) 250 mg DAILY ORAL 06/02/20 09:00 06/09/20 08:59 06/03/20 08:17 Metolazone (Zaroxolyn) 5 mg DAILY ORAL 06/01/20 12:00 07/01/20 11:59 06/03/20 08:17 Mirtazapine (Remeron) 7.5 mg BEDTIME ORAL 06/02/20 21:00 08/31/20 20:59 06/02/20 21:33 Pantoprazole (Protonix) 40 mg Q12HR ORAL 05/22/20 21:00 06/21/20 20:59 06/03/20 08:17 Timothy Pennington MD Jun 03, 2020 15:09
[2020-06-03 16:00] VITALS: BP 143/65
--- NOTE | 2020-06-03 18:18 | Brief Operative Note ---
Immediate Post Operative Note Operative Note Pre-op Diagnosis: pleural effusion Procedure: R thoracentesis Post-op Diagnosis: same as pre-op Surgeon: Noah desouza Anesthesia: local Specimen: none Complications: none Fluids: none Implant(s) used?: No Hany Desouza MD Jun 03, 2020 18:18
[2020-06-03 20:00] VITALS: BP 113/58
--- NOTE | 2020-06-03 20:24 | General Progress Note ---
Subjective Allergies: Coded Allergies: No Known Allergies (Unverified , 05/19/20) Subjective above noted on BIPAP but has been able to eat Objective Last 24 Hour Vital Signs Date Time Temp Pulse Resp B/P (MAP) Pulse Ox O2 Delivery O2 Flow Rate FiO2 06/03/20 19:39 Bi-Pap 06/03/20 19:30 102 38 100 100 06/03/20 16:00 Bi-pap 15.0 Non-Rebreather 06/03/20 16:00 97.0 107 28 143/65 (91) 96 06/03/20 16:00 110 06/03/20 16:00 100 06/03/20 14:32 108 52 93 Bi-Pap 100 106 41 95 100 06/03/20 14:00 40 94 06/03/20 12:04 Non-Rebreather 15.0 Non-Rebreather 06/03/20 12:00 100 06/03/20 12:00 103 06/03/20 12:00 97.5 109 26 91/62 (72) 95 06/03/20 10:30 107 49 92 100 06/03/20 10:00 100 06/03/20 08:40 103 55 92 100 06/03/20 08:00 97.3 110 24 118/73 (88) 90 06/03/20 08:00 15.0 06/03/20 08:00 Non-Rebreather 15.0 Non-Rebreather 06/03/20 07:50 110 24 90 Non-Rebreather 15.0 100 06/03/20 07:50 90 Non-Rebreather 15.0 100 06/03/20 07:38 112 06/03/20 04:00 Non-Rebreather 15.0 Non-Rebreather 15.0 Non-Rebreather 15.0 06/03/20 04:00 100 06/03/20 04:00 97.6 104 25 110/67 (81) 92 06/03/20 03:31 106 06/03/20 02:45 101 29 93 100 06/03/20 00:00 100 06/03/20 00:00 Non-Rebreather 15.0 Non-Rebreather 15.0 Non-Rebreather 15.0 06/03/20 00:00 97.7 104 25 110/67 (81) 92 06/02/20 23:27 105 06/02/20 22:02 106 38 92 100 Intake and Output 06/02/20 06/03/20 19:00 07:00 Intake Total 400 ml 250 ml Output Total 700 ml 500 ml Balance -300 ml -250 ml Intake Oral 400 ml 250 ml Output Urine Total 700 ml 500 ml Laboratory Tests 06/03/20 02:50: White Blood Count 13.2H, Red Blood Count 4.22, Hemoglobin 12.1, Hematocrit 35.8L , Mean Corpuscular Volume 85, Mean Corpuscular Hemoglobin 28.7, Mean Corpuscular Hemoglobin Concent 33.8, Red Cell Distribution Width 13.8, Platelet Count 436, Mean Platelet Volume 6.1L, Neutrophils (%) (Auto) , Lymphocytes (%) (Auto) , Monocytes (%) (Auto) , Eosinophils (%) (Auto) , Basophils (%) (Auto) , Sodium Level 136, Potassium Level 3.7, Chloride Level 95L, Carbon Dioxide Level 32, Anion Gap 9, Blood Urea Nitrogen 63H, Creatinine 1.4H, Estimat Glomerular Filtration Rate 38.2, Glucose Level 174H, Calcium Level 8.9, Phosphorus Level 4.0, Magnesium Level 2.0, Total Bilirubin 0.3, Aspartate Amino Transf (AST/SGOT) 27, Alanine Aminotransferase (ALT/SGPT) 13, Alkaline Phosphatase 64, Pro-B-Type Natriuretic Peptide 90899A, Total Protein 6.5, Albumin 2.2L, Globulin 4.3, Albumin/Globulin Ratio 0.5L 06/03/20 08:12: Arterial Blood pH 7.423, Arterial Blood Partial Pressure CO2 53.9H, Arterial Blood Partial Pressure O2 52.4L, Arterial Blood HCO3 34.4H, Arterial Blood Oxygen Saturation 86.2*L, Arterial Blood Base Excess 8.3H, Sammy Test Positive Height (Feet): 5 Height (Inches): 0.00 Weight (Pounds): 100 Objective NCAT supple Coarse BS RR abd soft no edema Assessment/Plan Status: progressing Assessment/Plan: Assessment - Respiratory failure - pleural effusions, s/p thoracentesis - Renal failure - Elevated troponin - HTN - CML Recommendations - Pulmonary management - aspiration precautions - follow labs and exam Antonio Ratliff MD Jun 03, 2020 20:24
--- NOTE | 2020-06-03 20:50 | General Progress Note ---
Subjective ROS Limited/Unobtainable: Yes Allergies: Coded Allergies: No Known Allergies (Unverified , 05/19/20) Objective Last 24 Hour Vital Signs Date Time Temp Pulse Resp B/P (MAP) Pulse Ox O2 Delivery O2 Flow Rate FiO2 06/03/20 19:39 Bi-Pap 06/03/20 19:30 102 38 100 100 06/03/20 16:00 Bi-pap 15.0 Non-Rebreather 06/03/20 16:00 97.0 107 28 143/65 (91) 96 06/03/20 16:00 110 06/03/20 16:00 100 06/03/20 14:32 108 52 93 Bi-Pap 100 106 41 95 100 06/03/20 14:00 40 94 06/03/20 12:04 Non-Rebreather 15.0 Non-Rebreather 06/03/20 12:00 100 06/03/20 12:00 103 06/03/20 12:00 97.5 109 26 91/62 (72) 95 06/03/20 10:30 107 49 92 100 06/03/20 10:00 100 06/03/20 08:40 103 55 92 100 06/03/20 08:00 97.3 110 24 118/73 (88) 90 06/03/20 08:00 15.0 06/03/20 08:00 Non-Rebreather 15.0 Non-Rebreather 06/03/20 07:50 110 24 90 Non-Rebreather 15.0 100 06/03/20 07:50 90 Non-Rebreather 15.0 100 06/03/20 07:38 112 06/03/20 04:00 Non-Rebreather 15.0 Non-Rebreather 15.0 Non-Rebreather 15.0 06/03/20 04:00 100 06/03/20 04:00 97.6 104 25 110/67 (81) 92 06/03/20 03:31 106 06/03/20 02:45 101 29 93 100 06/03/20 00:00 100 06/03/20 00:00 Non-Rebreather 15.0 Non-Rebreather 15.0 Non-Rebreather 15.0 06/03/20 00:00 97.7 104 25 110/67 (81) 92 06/02/20 23:27 105 06/02/20 22:02 106 38 92 100 Intake and Output 06/02/20 06/03/20 19:00 07:00 Intake Total 400 ml 250 ml Output Total 700 ml 500 ml Balance -300 ml -250 ml Intake Oral 400 ml 250 ml Output Urine Total 700 ml 500 ml Laboratory Tests 06/03/20 02:50: White Blood Count 13.2H, Red Blood Count 4.22, Hemoglobin 12.1, Hematocrit 35.8L , Mean Corpuscular Volume 85, Mean Corpuscular Hemoglobin 28.7, Mean Corpuscular Hemoglobin Concent 33.8, Red Cell Distribution Width 13.8, Platelet Count 436, Mean Platelet Volume 6.1L, Neutrophils (%) (Auto) , Lymphocytes (%) (Auto) , Monocytes (%) (Auto) , Eosinophils (%) (Auto) , Basophils (%) (Auto) , Sodium Level 136, Potassium Level 3.7, Chloride Level 95L, Carbon Dioxide Level 32, Anion Gap 9, Blood Urea Nitrogen 63H, Creatinine 1.4H, Estimat Glomerular Filtration Rate 38.2, Glucose Level 174H, Calcium Level 8.9, Phosphorus Level 4.0, Magnesium Level 2.0, Total Bilirubin 0.3, Aspartate Amino Transf (AST/SGOT) 27, Alanine Aminotransferase (ALT/SGPT) 13, Alkaline Phosphatase 64, Pro-B-Type Natriuretic Peptide 13914K, Total Protein 6.5, Albumin 2.2L, Globulin 4.3, Albumin/Globulin Ratio 0.5L 06/03/20 08:12: Arterial Blood pH 7.423, Arterial Blood Partial Pressure CO2 53.9H, Arterial Blood Partial Pressure O2 52.4L, Arterial Blood HCO3 34.4H, Arterial Blood Oxygen Saturation 86.2*L, Arterial Blood Base Excess 8.3H, Sammy Test Positive Height (Feet): 5 Height (Inches): 0.00 Weight (Pounds): 100 Assessment/Plan Problem List: (1) Leukemia ICD Codes: C95.90 - Leukemia, unspecified not having achieved remission SNOMED: 75833512 (2) Bilateral pleural effusion ICD Codes: J90 - Pleural effusion, not elsewhere classified SNOMED: 736008789 Status: progressing Assessment/Plan: bipap nees continious oxygen treatment of hypoxia per pulmonalogist resp insuff on high oxygen leukemia reviewed chart and labs Tiara Jara MD Jun 03, 2020 20:50
--- NOTE | 2020-06-03 22:21 | Diagnostic Imaging Report ---
Indications: Pleural effusion Technique: Ultrasound used to localize optimal puncture site. Sterile prepping and draping right chest. Local anesthesia with 1% lidocaine. Under real-time ultrasound guidance, puncture pleural space using thoracentesis needle. Stylet removed. Catheter placed to vacuum bottle suction. Total 1600 milliliters of fluid aspirated. Patient tolerated procedure well, without immediate complication. Findings: Followup sonography demonstrates partial resolution of pleural fluid. Impression: Successful ultrasound-guided thoracentesis, yielding 1600 milliliters of fluid
--- NOTE | 2020-06-03 22:22 | Diagnostic Imaging Report ---
Indication: Post thoracentesis Technique: One view of the chest Comparison: 10 hours earlier Findings: Interim near complete resolution of previously demonstrated large right pleural effusion. No pneumothorax. Large left pleural effusion persists. There is suggestion of mildly decreased interstitial edema Impression: Nearly resolved large right pleural effusion. No radiographically evident complication
[2020-06-04] VITALS: BP 101/61
--- NOTE | 2020-06-04 03:30 | Consultation ---
DATE OF CONSULTATION: 06/03/2020 HISTORY OF PRESENT ILLNESS: This is a 60-year-old female with a history of multiple medical issues including hypertension, , renal failure, and severely anxious. The patient is desaturating and is currently using BiPAP mask for respiratory support. The patient has difficulty sleeping. She is severely anxious and stressful. She stated that she has not been sleeping all night. The patient is able to answer the questions. The patient is Tristanian speaking. PAST PSYCHIATRIST HISTORY: Anxiety disorder and depression. Not on psychotropic medication currently. PAST MEDICAL HISTORY: As above. ALLERGIES: No known drug allergies. SUBSTANCE ABUSE HISTORY: No known history of illicit drug use or alcohol. MENTAL STATUS EXAMINATION: The patient is alert and oriented times self, place, and situation. Mood is anxious. Affect is blunted, congruent with mood. Thought process is concrete. Thought content, there is no suicidal or homicidal ideation. Cognition is intact. Insight and judgment are fair. ASSESSMENT: [place] I Anxiety disorder. Insomnia. [place] II Deferred. [place] III As above. [place] IV Low. [place] V 50. PLAN: 1. Remeron 7.5 mg at bedtime. 2. Provide the patient with reality orientation and supportive therapy. Anahy Avendano M.D. DR: MELANIE JOB#: [id number] CC:
[2020-06-04 04:00] VITALS: BP 107/56
--- NOTE | 2020-06-04 07:10 | Hematology/Onc Progress Note ---
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, sees oncologist in [facility] --> at this time STOP desatanib (also is the likely cause of pleural effusions) --> no is s/p thora per pulm/cards --> wbc trend 18->7->10 --> hgb 11.5->12->13 --> ABX ceftriaxone-->off --> bipap, thora prn --> needs molecular and cytogenectic response for CML, f/u oncologist outpatient # Bilateral pleural effusion --> as per pulm, is on bipap --> thora as needed --> repeat thora prn 05/29 # HTN --> hydralazine and lisinopril --> sbp goal <140 # Dehydration --> goal of euvolemia # Elevated ddimer --> duplex lower ext r/o dvt==>neg # Dvt ppx lovenox sq Appreciate consultation and zachariah RN Subjective Constitutional: Denies: no symptoms, chills, fever, malaise, weakness, other Cardiovascular: Denies: no symptoms, chest pain, edema, irregular heart rate, lightheadedness, palpitations, syncope, other Respiratory: Denies: no symptoms, cough, shortness of breath, SOB with excertion, SOB at rest, sputum, wheezing, other Gastrointestinal/Abdominal: Denies: no symptoms, abdomen distended, abdominal pain, black stools, tarry stools, blood in stool, constipated, diarrhea, difficulty swallowing, nausea, poor appetite, poor fluid intake, rectal bleeding, vomiting, other Genitourinary: Denies: no symptoms, burning, discharge, frequency, flank pain, hematuria, incontinence, pain, urgency, other Neurologic/Psychiatric: Denies: no symptoms, anxiety, depressed, emotional problems, headache, numbness, paresthesia, pre-existing deficit, seizure, tingling, tremors, weakness, other Endocrine: Denies: no symptoms, excessive sweating, flushing, intolerance to cold, intolerance to heat, increased hunger, increased thirst, increased urine, unexplained weight gain, unexplained weight loss, other Allergies: Coded Allergies: No Known Allergies (Unverified , 05/19/20) Subjective 05/21 labs are noted, no bleeding, with pleural effusions due to desatanbib, s/p thora 05/22 labs are noted, no bleeding, on bipap, i dw her today to stop her med at once 05/24 wbc is improved, continue on ctx for one more day per id, bipap 05/26 have ordered for repeat cxr this am to reeval pleural effusions, labs noted 05/27 with b/l pleural effusions, aware from pulm, thora prn 05/28 has been refusing scds, thus will start lovenox today, breathing better s/p thora 05/29 with nonrebreather, for thora today, no night sweats, meds noted 05/31 remains on bipap, meds reviewed, off desatanib, worse effusion r>l 06/01 on bipap this am, labs pending for am 06/02 unable to wean off facemask, requiring it, will dw sister today 06/03 labs reviewed, meds noted, continues to be bipap support 06/04 no aspiration, is comfortable, meds reviewed, no bleeding Objective Objective Current Medications Medications (Trade) Dose Ordered Sig/Jennie Route PRN Reason Start Time Stop Time Status Last Admin Dose Admin Acetaminophen (Tylenol) 500 mg Q6H PRN ORAL Mild Pain (Pain Scale 1-3) 05/19/20 16:45 06/18/20 16:44 Albuterol/ Ipratropium (Albuterol/ Ipratropium) 3 ml Q4H PRN HHN Shortness of Breath 05/31/20 08:45 06/05/20 08:44 06/03/20 14:31 Clonidine HCl (Catapres Tab) 0.1 mg Q4H PRN ORAL SBP > 170 05/24/20 13:15 08/22/20 13:14 Docusate Sodium (Colace) 100 mg TWICE A DAY ORAL 05/22/20 18:00 06/21/20 17:59 06/03/20 18:26 Enoxaparin Sodium (Lovenox) 40 mg DAILY SUBQ 06/02/20 09:00 08/31/20 08:59 06/03/20 08:19 Furosemide (Lasix) 40 mg BID ORAL 06/01/20 18:00 06/26/20 08:59 06/03/20 18:26 Levofloxacin (Levaquin) 250 mg DAILY ORAL 06/02/20 09:00 06/09/20 08:59 06/03/20 08:17 Metolazone (Zaroxolyn) 5 mg DAILY ORAL 06/01/20 12:00 07/01/20 11:59 06/03/20 08:17 Mirtazapine (Remeron) 7.5 mg BEDTIME ORAL 06/02/20 21:00 08/31/20 20:59 06/03/20 20:54 Pantoprazole (Protonix) 40 mg Q12HR ORAL 05/22/20 21:00 06/21/20 20:59 06/03/20 20:54 Last 24 Hour Vital Signs Date Time Temp Pulse Resp B/P (MAP) Pulse Ox O2 Delivery O2 Flow Rate FiO2 06/04/20 04:00 97.3 98 22 107/56 (73) 100 06/04/20 04:00 Bi-pap Bi-pap 06/04/20 04:00 100 06/04/20 04:00 98 06/04/20 03:12 103 21 100 100 06/04/20 00:00 101 06/04/20 00:00 100 06/04/20 00:00 Bi-pap Bi-pap 06/04/20 00:00 97.7 101 24 101/61 (74) 100 06/04/20 00:00 100 06/03/20 23:08 102 38 100 100 06/03/20 20:00 100 06/03/20 20:00 Bi-pap Bi-pap 06/03/20 20:00 98.9 118 21 113/58 (76) 100 06/03/20 20:00 101 06/03/20 19:39 Bi-Pap 06/03/20 19:30 102 38 100 100 06/03/20 16:00 Bi-pap 15.0 Non-Rebreather 06/03/20 16:00 97.0 107 28 143/65 (91) 96 06/03/20 16:00 110 06/03/20 16:00 100 06/03/20 14:32 108 52 93 Bi-Pap 100 106 41 95 100 06/03/20 14:00 40 94 06/03/20 12:04 Non-Rebreather 15.0 Non-Rebreather 10/7/20 12:00 100 06/03/20 12:00 103 06/03/20 12:00 97.5 109 26 91/62 (72) 95 06/03/20 10:30 107 49 92 100 06/03/20 10:00 100 06/03/20 08:40 103 55 92 100 06/03/20 08:00 97.3 110 24 118/73 (88) 90 06/03/20 08:00 15.0 06/03/20 08:00 Non-Rebreather 15.0 Non-Rebreather 06/03/20 07:50 110 24 90 Non-Rebreather 15.0 100 06/03/20 07:50 90 Non-Rebreather 15.0 100 06/03/20 07:38 112 06/03/20 04:00 Non-Rebreather 15.0 Non-Rebreather 15.0 Non-Rebreather 15.0 06/03/20 04:00 100 06/03/20 04:00 97.6 104 25 110/67 (81) 92 06/03/20 03:31 106 06/03/20 02:45 101 29 93 100 06/03/20 00:00 100 06/03/20 00:00 Non-Rebreather 15.0 Non-Rebreather 15.0 Non-Rebreather 15.0 06/03/20 00:00 97.7 104 25 110/67 (81) 92 06/02/20 23:27 105 06/02/20 22:02 106 38 92 100 06/02/20 20:00 15.0 06/02/20 20:00 Non-Rebreather 15.0 Non-Rebreather 15.0 Non-Rebreather 15.0 06/02/20 20:00 97.8 101 25 139/75 (96) 92 06/02/20 19:42 105 06/02/20 18:45 108 28 92 Non-Rebreather 15.0 100 06/02/20 17:33 101 46 94 100 06/02/20 17:32 94 Bi-Pap 100 06/02/20 16:00 Non-Rebreather 15.0 Non-Rebreather 15.0 Non-Rebreather 15.0 06/02/20 16:00 15.0 06/02/20 16:00 96.6 101 25 124/80 (95) 92 06/02/20 15:32 99 06/02/20 12:00 15.0 06/02/20 12:00 96.3 104 24 138/85 (102) 93 06/02/20 12:00 Non-Rebreather 15.0 Non-Rebreather 15.0 Non-Rebreather 15.0 06/02/20 11:46 101 06/02/20 09:20 100 96 06/02/20 08:20 101 39 93 100 06/02/20 08:00 96.4 108 25 141/74 (96) 91 06/02/20 07:55 15.0 06/02/20 07:53 107 06/02/20 07:53 Non-Rebreather 15.0 Non-Rebreather 15.0 Non-Rebreather 15.0 Intake and Output 06/03/20 06/04/20 18:59 06:59 Intake Total 160 ml 360 ml Output Total 550 ml 400 ml Balance -390 ml -40 ml Intake Oral 160 ml 360 ml Output Urine Total 550 ml 400 ml # Bowel Movements 1 Labs Test 06/03/20 02:50 06/03/20 08:12 White Blood Count 13.2 K/UL (4.8-10.8) Red Blood Count 4.22 M/UL (4.20-5.40) Hemoglobin 12.1 G/DL (12.0-16.0) Hematocrit 35.8 % (37.0-47.0) Mean Corpuscular Volume 85 FL (80-99) Mean Corpuscular Hemoglobin 28.7 PG (27.0-31.0) Mean Corpuscular Hemoglobin Concent 33.8 G/DL (32.0-36.0) Red Cell Distribution Width 13.8 % (11.6-14.8) Platelet Count 436 K/UL (150-450) Mean Platelet Volume 6.1 FL (6.5-10.1) Neutrophils (%) (Auto) % (45.0-75.0) Lymphocytes (%) (Auto) % (20.0-45.0) Monocytes (%) (Auto) % (1.0-10.0) Eosinophils (%) (Auto) % (0.0-3.0) Basophils (%) (Auto) % (0.0-2.0) Sodium Level 136 MMOL/L (136-145) Potassium Level 3.7 MMOL/L (3.5-5.1) Chloride Level 95 MMOL/L (98-107) Carbon Dioxide Level 32 MMOL/L (21-32) Anion Gap 9 mmol/L (5-15) Blood Urea Nitrogen 63 mg/dL (7-18) Creatinine 1.4 MG/DL (0.55-1.30) Estimat Glomerular Filtration Rate 38.2 mL/min (>60) Glucose Level 174 MG/DL (74-106) Calcium Level 8.9 MG/DL (8.5-10.1) Phosphorus Level 4.0 MG/DL (2.5-4.9) Magnesium Level 2.0 MG/DL (1.8-2.4) Total Bilirubin 0.3 MG/DL (0.2-1.0) Aspartate Amino Transf (AST/SGOT) 27 U/L (15-37) Alanine Aminotransferase (ALT/SGPT) 13 U/L (12-78) Alkaline Phosphatase 64 U/L (46-116) Pro-B-Type Natriuretic Peptide 31863 pg/mL (0-125) Total Protein 6.5 G/DL (6.4-8.2) Albumin 2.2 G/DL (3.4-5.0) Globulin 4.3 g/dL Albumin/Globulin Ratio 0.5 (1.0-2.7) Arterial Blood pH 7.423 (7.350-7.450) Arterial Blood Partial Pressure CO2 53.9 mmHg (35.0-45.0) Arterial Blood Partial Pressure O2 52.4 mmHg (75.0-100.0) Arterial Blood HCO3 34.4 mmol/L (22.0-26.0) Arterial Blood Oxygen Saturation 86.2 % (95-100) Arterial Blood Base Excess 8.3 (-2-2) Sammy Test Positive Height (Feet): 5 Height (Inches): 0.00 Weight (Pounds): 100 Dionicio Higgins MD Jun 04, 2020 07:10
[2020-06-04 08:00] VITALS: BP 100/61
[2020-06-04] MEDS: Furosemide 40mg tab ORAL SCH (09:01)
[2020-06-04] MEDS: Docusate 100mg cap ORAL SCH ×2 (09:01→17:33)
[2020-06-04] MEDS: Enoxaparin 40mg Inj SUBQ SCH (09:03)
--- NOTE | 2020-06-04 10:09 | General Progress Note ---
Subjective Allergies: Coded Allergies: No Known Allergies (Unverified , 05/19/20) Subjective above noted on BIPAP but has been able to eat (+) BM Objective Last 24 Hour Vital Signs Date Time Temp Pulse Resp B/P (MAP) Pulse Ox O2 Delivery O2 Flow Rate FiO2 06/04/20 08:00 97.0 98 20 100/61 (74) 100 06/04/20 07:10 20 100 06/04/20 07:00 100 Bi-Pap 100 06/04/20 07:00 103 40 100 100 06/04/20 04:00 97.3 98 22 107/56 (73) 100 06/04/20 04:00 Bi-pap Bi-pap 06/04/20 04:00 100 06/04/20 04:00 98 06/04/20 03:12 103 21 100 100 06/04/20 00:00 101 06/04/20 00:00 100 06/04/20 00:00 Bi-pap Bi-pap 06/04/20 00:00 97.7 101 24 101/61 (74) 100 06/04/20 00:00 100 06/03/20 23:08 102 38 100 100 06/03/20 20:00 100 06/03/20 20:00 Bi-pap Bi-pap 06/03/20 20:00 98.9 118 21 113/58 (76) 100 06/03/20 20:00 101 06/03/20 19:39 Bi-Pap 06/03/20 19:30 102 38 100 100 06/03/20 16:00 Bi-pap 15.0 Non-Rebreather 06/03/20 16:00 97.0 107 28 143/65 (91) 96 06/03/20 16:00 110 06/03/20 16:00 100 06/03/20 14:32 108 52 93 Bi-Pap 100 106 41 95 100 06/03/20 14:00 40 94 06/03/20 12:04 Non-Rebreather 15.0 Non-Rebreather 06/03/20 12:00 100 06/03/20 12:00 103 06/03/20 12:00 97.5 109 26 91/62 (72) 95 06/03/20 10:30 107 49 92 100 Intake and Output 06/03/20 06/04/20 18:59 06:59 Intake Total 160 ml 360 ml Output Total 550 ml 400 ml Balance -390 ml -40 ml Intake Oral 160 ml 360 ml Output Urine Total 550 ml 400 ml # Bowel Movements 1 Laboratory Tests 06/04/20 09:40: White Blood Count [Pending], Red Blood Count [Pending], Hemoglobin [Pending], Hematocrit [Pending], Mean Corpuscular Volume [Pending], Mean Corpuscular Hemoglobin [Pending], Mean Corpuscular Hemoglobin Concent [Pending], Red Cell Distribution Width [Pending], Platelet Count [Pending], Mean Platelet Volume [Pending], Neutrophils (%) (Auto) [Pending], Lymphocytes (%) (Auto) [Pending], Monocytes (%) (Auto) [Pending], Eosinophils (%) (Auto) [Pending], Basophils (%) (Auto) [Pending], Sodium Level [Pending], Potassium Level [Pending], Chloride Level [Pending], Carbon Dioxide Level [Pending], Blood Urea Nitrogen [Pending], Creatinine [Pending], Estimat Glomerular Filtration Rate [Pending], Glucose Level [Pending], Calcium Level [Pending], Phosphorus Level [Pending], Magnesium Level [Pending], Total Bilirubin [Pending], Aspartate Amino Transf (AST/SGOT) [Pending], Alanine Aminotransferase (ALT/SGPT) [Pending], Alkaline Phosphatase [Pending], C-Reactive Protein, Quantitative [Pending], Total Protein [Pending], Albumin [Pending], Globulin [Pending] Height (Feet): 5 Height (Inches): 0.00 Weight (Pounds): 100 Objective NCAT supple Coarse BS RR abd soft no edema Assessment/Plan Status: progressing Assessment/Plan: Assessment - Respiratory failure - pleural effusions, s/p thoracentesis - Renal failure - Elevated troponin - HTN - CML Recommendations - Pulmonary management - aspiration precautions - follow labs and exam Antonio Ratliff MD Jun 04, 2020 10:09
[2020-06-04 10:10] LABS: HEMATOCRIT 37.9 % (37.0-47.0); HEMOGLOBIN 12.7 G/DL (12.0-16.0); MEAN CORPUSCULAR VOLUME 85 FL (80-99); PLATELET COUNT 399 K/UL (150-450); RED BLOOD COUNT 4.49 M/UL (4.20-5.40); RED CELL DISTRIBUTION WIDTH 13.9 % (11.6-14.8); WHITE BLOOD COUNT 16.8 K/UL (4.8-10.8)
[2020-06-04 10:23] LABS: ALBUMIN 1.9 G/DL (3.4-5.0); ALBUMIN/GLOBULIN RATIO 0.5 (1.0-2.7); BILIRUBIN,TOTAL 0.3 MG/DL (0.2-1.0); CALCIUM 8.6 MG/DL (8.5-10.1); CREATININE 1.8 MG/DL (0.55-1.30); PHOSPHORUS 4.4 MG/DL (2.5-4.9)
[2020-06-04 10:30] LABS: POTASSIUM 2.7 MMOL/L (3.5-5.1)
--- NOTE | 2020-06-04 10:43 | Pulmonology Progress Note ---
Subjective ROS Limited/Unobtainable: Yes Interval Events: Diuresing well; s/p repeat thoracentesis yesterday R side; 1.6L removed Constitutional: Denies: fever HEENT: Repors: no symptoms Respiratory: Reports: dry cough Gastrointestinal/Abdominal: Reports: no symptoms Genitourinary: Reports: no symptoms Neurologic: Reports: no symptoms Musculoskeletal: Denies: pain Allergies: Coded Allergies: No Known Allergies (Unverified , 05/19/20) Objective Last 24 Hour Vital Signs Date Time Temp Pulse Resp B/P (MAP) Pulse Ox O2 Delivery O2 Flow Rate FiO2 06/04/20 08:00 97.0 98 20 100/61 (74) 100 06/04/20 07:10 20 100 06/04/20 07:00 100 Bi-Pap 100 06/04/20 07:00 103 40 100 100 06/04/20 04:00 97.3 98 22 107/56 (73) 100 06/04/20 04:00 Bi-pap Bi-pap 06/04/20 04:00 100 06/04/20 04:00 98 06/04/20 03:12 103 21 100 100 06/04/20 00:00 101 06/04/20 00:00 100 06/04/20 00:00 Bi-pap Bi-pap 06/04/20 00:00 97.7 101 24 101/61 (74) 100 06/04/20 00:00 100 06/03/20 23:08 102 38 100 100 06/03/20 20:00 100 06/03/20 20:00 Bi-pap Bi-pap 06/03/20 20:00 98.9 118 21 113/58 (76) 100 06/03/20 20:00 101 06/03/20 19:39 Bi-Pap 06/03/20 19:30 102 38 100 100 06/03/20 16:00 Bi-pap 15.0 Non-Rebreather 06/03/20 16:00 97.0 107 28 143/65 (91) 96 06/03/20 16:00 110 06/03/20 16:00 100 06/03/20 14:32 108 52 93 Bi-Pap 100 106 41 95 100 06/03/20 14:00 40 94 06/03/20 12:04 Non-Rebreather 15.0 Non-Rebreather 06/03/20 12:00 100 06/03/20 12:00 103 06/03/20 12:00 97.5 109 26 91/62 (72) 95 Intake and Output 06/03/20 06/04/20 18:59 06:59 Intake Total 160 ml 360 ml Output Total 550 ml 400 ml Balance -390 ml -40 ml Intake Oral 160 ml 360 ml Output Urine Total 550 ml 400 ml # Bowel Movements 1 General Appearance: no acute distress Respiratory: chest wall non-tender, normal breath sounds, no respiratory distress, no accessory muscle use, decreased breath sounds Cardiovascular: normal peripheral pulses, normal rate Abdomen: normal bowel sounds Extremities: no cyanosis, no clubbing, no edema Laboratory Tests 06/04/20 09:40: White Blood Count 16.8H, Red Blood Count 4.49, Hemoglobin 12.7, Hematocrit 37.9, Mean Corpuscular Volume 85, Mean Corpuscular Hemoglobin 28.3, Mean Corpuscular Hemoglobin Concent 33.5, Red Cell Distribution Width 13.9, Platelet Count 399, Mean Platelet Volume 6.1L, Neutrophils (%) (Auto) , Lymphocytes (%) (Auto) , Monocytes (%) (Auto) , Eosinophils (%) (Auto) , Basophils (%) (Auto) , Differential Total Cells Counted 100, Neutrophils % (Manual) 95H, Lymphocytes % (Manual) 3L, Monocytes % (Manual) 2, Eosinophils % (Manual) 0, Basophils % (M anual) 0, Band Neutrophils 0, Platelet Estimate Adequate, Platelet Morphology Normal, Red Blood Cell Morphology Normal, Sodium Level 129L, Potassium Level 2.7*L, Chloride Level 93L, Carbon Dioxide Level 34H, Anion Gap -1L, Blood Urea Nitrogen 79H, Creatinine 1.8H, Estimat Glomerular Filtration Rate 28.6, Glucose Level 349#H, Calcium Level 8.6, Phosphorus Level 4.4, Magnesium Level 2.1, Total Bilirubin 0.3, Aspartate Amino Transf (AST/SGOT) 26, Alanine Aminotransferase (ALT/SGPT) 18, Alkaline Phosphatase 61, C-Reactive Protein, Quantitative 21.5H, Total Protein 5.5L, Albumin 1.9L, Globulin 3.6, Albumin/Globulin Ratio 0.5L Current Medications Medications (Trade) Dose Ordered Sig/Jennie Route PRN Reason Start Time Stop Time Status Last Admin Dose Admin Acetaminophen (Tylenol) 500 mg Q6H PRN ORAL Mild Pain (Pain Scale 1-3) 05/19/20 16:45 06/18/20 16:44 Albuterol/ Ipratropium (Albuterol/ Ipratropium) 3 ml Q4H PRN HHN Shortness of Breath 05/31/20 08:45 06/05/20 08:44 06/03/20 14:31 Clonidine HCl (Catapres Tab) 0.1 mg Q4H PRN ORAL SBP > 170 05/24/20 13:15 08/22/20 13:14 Docusate Sodium (Colace) 100 mg TWICE A DAY ORAL 05/22/20 18:00 06/21/20 17:59 06/04/20 09:01 Enoxaparin Sodium (Lovenox) 40 mg DAILY SUBQ 06/02/20 09:00 08/31/20 08:59 06/04/20 09:03 Furosemide (Lasix) 40 mg BID ORAL 06/01/20 18:00 06/26/20 08:59 06/04/20 09:01 Levofloxacin (Levaquin) 250 mg DAILY ORAL 06/02/20 09:00 06/09/20 08:59 06/04/20 09:01 Metolazone (Zaroxolyn) 5 mg DAILY ORAL 06/01/20 12:00 07/01/20 11:59 06/04/20 09:01 Mirtazapine (Remeron) 7.5 mg BEDTIME ORAL 06/02/20 21:00 08/31/20 20:59 06/03/20 20:54 Pantoprazole (Protonix) 40 mg Q12HR ORAL 05/22/20 21:00 06/21/20 20:59 06/04/20 09:01 Assessment/Plan Assessment/Plan IMPRESSION: 1. History of CML, on dasatinib. 2. Possible pneumonia. 3. Large pleural effusion, s/p B thoracentesis. 4. Hypertension. 5. Elevated D-dimer DISCUSSION: S/p Bilateral thoracentesis, CXR much improved; repeat thoracentesis R side 06/03 Now on NRBM Will consider Pleurex;consulted thoracic surgery Will continue diuresis Agree with broad-spectrum antibiotics. Michelet Hernandez Omar Syed MD Jun 04, 2020 10:43
--- NOTE | 2020-06-04 10:56 | Nephrology Progress Note ---
Assessment/Plan Problem List: (1) ASHLEY (acute kidney injury) (2) Bilateral pleural effusion (3) Leukemia Assessment Imp: Acute renal failure, with sudden jump in serum creatinine to 2.7 History of leukemia Hypertension, now hypotensive Hyponatremia on admission, improved Bilateral pleural effusion. Status post paracentesis. Elevated troponin, most likely leak. Plan June 04: Potassium low. Creatinine higher. Will discontinue IV Lasix as the patient already on metolazone. Potassium supplement ordered. 250 mL of 3% saline ordered. Continue to monitor electrolytes and renal parameters. Continue per consultants. June 03: Discussed with Dr. Olson. Patient's pleural effusions continue to be a challenge. Patient on diuretics. Will watch renal parameters and electrolytes. Patient was already tapped twice. Continue per current management. June 02: No chemistry panel done today. Status unchanged. Remains on nonrebreathing mask. Will check lab tomorrow. Continue per pulmonary. June 01: Labs reviewed. Status unchanged. Remains on nonrebreathing mask. Will increase his Lasix to 40 twice daily. Stable electrolytes and renal parameters at this time. May 31: No chemistry panel done today. Patient still on nonrebreathing mask. Patient full code. Will check lab tomorrow. Patient's main issue is respiratory. May 30: Labs reviewed. Renal parameters stable. Continue per pulmonary. May 29: No chemistry panel done today. Remains on nonrebreather mask. Will order labs tomorrow. Continue per consultants. May 28: Serum creatinine up to 1.5. Remains on nonrebreather mask. Since admission had 3 thoracenteses for pleural effusion over the left and right. Respiratory status remains unstable. Continue per pulmonary. Will watch renal parameters. May 27: When seen the patient was on 100% nonrebreather mask. Renal panel within normal limit. Continue per consultants. Main problem remains respiratory. May 26: Renal parameters stable. Started on Lasix 40 mg daily. Continue to monitor renal parameters and electrolytes. Continue per consultants. May 25: Renal parameters within normal limit. Another dose of IV Lasix given. Continue to monitor electrolytes. Continue per consultants. May 24: Renal parameters normalized. Will give the Lasix 40 mg IV once. 1 dose of Kayexalate for hyperkalemia. Continue to monitor renal parameters. Previously: Today renal parameters are improved. Serum creatinine down to 1.6 from 2.7 Continue to hold lisinopril Continue to hold Lasix Half Normal saline 100 cc an hour one liter only was given yesterday Albumin bolus given yesterday, repeat as needed Monitor renal parameters Avoid nephrotoxic's Subjective ROS Limited/Unobtainable: No Constitutional: Reports: malaise, weakness Objective Objective Last 24 Hour Vital Signs Date Time Temp Pulse Resp B/P (MAP) Pulse Ox O2 Delivery O2 Flow Rate FiO2 06/04/20 08:00 97.0 98 20 100/61 (74) 100 06/04/20 07:10 20 100 06/04/20 07:00 100 Bi-Pap 100 06/04/20 07:00 103 40 100 100 06/04/20 04:00 97.3 98 22 107/56 (73) 100 06/04/20 04:00 Bi-pap Bi-pap 06/04/20 04:00 100 06/04/20 04:00 98 06/04/20 03:12 103 21 100 100 06/04/20 00:00 101 06/04/20 00:00 100 06/04/20 00:00 Bi-pap Bi-pap 06/04/20 00:00 97.7 101 24 101/61 (74) 100 06/04/20 00:00 100 06/03/20 23:08 102 38 100 100 06/03/20 20:00 100 06/03/20 20:00 Bi-pap Bi-pap 06/03/20 20:00 98.9 118 21 113/58 (76) 100 06/03/20 20:00 101 06/03/20 19:39 Bi-Pap 06/03/20 19:30 102 38 100 100 06/03/20 16:00 Bi-pap 15.0 Non-Rebreather 06/03/20 16:00 97.0 107 28 143/65 (91) 96 06/03/20 16:00 110 06/03/20 16:00 100 06/03/20 14:32 108 52 93 Bi-Pap 100 106 41 95 100 06/03/20 14:00 40 94 06/03/20 12:04 Non-Rebreather 15.0 Non-Rebreather 06/03/20 12:00 100 06/03/20 12:00 103 06/03/20 12:00 97.5 109 26 91/62 (72) 95 Intake and Output 06/03/20 06/04/20 18:59 06:59 Intake Total 160 ml 360 ml Output Total 550 ml 400 ml Balance -390 ml -40 ml Intake Oral 160 ml 360 ml Output Urine Total 550 ml 400 ml # Bowel Movements 1 Laboratory Tests 06/04/20 09:40: White Blood Count 16.8H, Red Blood Count 4.49, Hemoglobin 12.7, Hematocrit 37.9, Mean Corpuscular Volume 85, Mean Corpuscular Hemoglobin 28.3, Mean Corpuscular Hemoglobin Concent 33.5, Red Cell Distribution Width 13.9, Platelet Count 399, Mean Platelet Volume 6.1L, Neutrophils (%) (Auto) , Lymphocytes (%) (Auto) , Monocytes (%) (Auto) , Eosinophils (%) (Auto) , Basophils (%) (Auto) , Differential Total Cells Counted 100, Neutrophils % (Manual) 95H, Lymphocytes % (Manual) 3L, Monocytes % (Manual) 2, Eosinophils % (Manual) 0, Basophils % (Manual) 0, Band Neutrophils 0, Platelet Estimate Adequate, Platelet Morphology Normal, Red Blood Cell Morphology Normal, Sodium Level 129L, Potassium Level 2.7*L, Chloride Level 93L, Carbon Dioxide Level 34H, Anion Gap -1L, Blood Urea Nitrogen 79H, Creatinine 1.8H, Estimat Glomerular Filtration Rate 28.6, Glucose Level 349#H, Calcium Level 8.6, Phosphorus Level 4.4, Magnesium Level 2.1, Total Bilirubin 0.3, Aspartate Amino Transf (AST/SGOT) 26, Alanine Aminotransferase (ALT/SGPT) 18, Alkaline Phosphatase 61, C-Reactive Protein, Quantitative 21.5H, Total Protein 5.5L, Albumin 1.9L, Globulin 3.6, Albumin/Globulin Ratio 0.5L Height (Feet): 5 Height (Inches): 0.00 Weight (Pounds): 100 General Appearance: no apparent distress EENT: other - On BiPAP Respiratory/Chest: decreased breath sounds Abdomen: distended Montrell Carpio MD Jun 04, 2020 10:56
[2020-06-04 12:00] VITALS: BP 97/67
--- NOTE | 2020-06-04 14:09 | Infectious Diseases Prog Note ---
Assessment/Plan Assessment/Plan IMPRESSION: Leukocytosis, systemic inflammatory response syndrome or sepsis, Recurrent pleural effusion, CML, Accelerated hypertension, Elevation of troponin. Hypoxemia RECOMMENDATION: Continue PO Levaquin May need pleurodesis Subjective ROS Limited/Unobtainable: No Constitutional: Reports: no symptoms Respiratory: Reports: shortness of breath, other - has thoracentesis & removal of 1600cc pleural effusion Allergies: Coded Allergies: No Known Allergies (Unverified , 05/19/20) Objective Last 24 Hour Vital Signs Date Time Temp Pulse Resp B/P (MAP) Pulse Ox O2 Delivery O2 Flow Rate FiO2 06/04/20 08:00 Non-Rebreather 15.0 06/04/20 08:00 97.0 98 20 100/61 (74) 100 06/04/20 07:10 20 100 06/04/20 07:00 100 Bi-Pap 100 06/04/20 07:00 103 40 100 100 06/04/20 04:00 97.3 98 22 107/56 (73) 100 06/04/20 04:00 Bi-pap Bi-pap 06/04/20 04:00 100 06/04/20 04:00 98 06/04/20 03:12 103 21 100 100 06/04/20 00:00 101 06/04/20 00:00 100 06/04/20 00:00 Bi-pap Bi-pap 06/04/20 00:00 97.7 101 24 101/61 (74) 100 06/04/20 00:00 100 06/03/20 23:08 102 38 100 100 06/03/20 20:00 100 06/03/20 20:00 Bi-pap Bi-pap 06/03/20 20:00 98.9 118 21 113/58 (76) 100 06/03/20 20:00 101 06/03/20 19:39 Bi-Pap 06/03/20 19:30 102 38 100 100 06/03/20 16:00 Bi-pap 15.0 Non-Rebreather 06/03/20 16:00 97.0 107 28 143/65 (91) 96 06/03/20 16:00 110 06/03/20 16:00 100 06/03/20 14:32 108 52 93 Bi-Pap 100 106 41 95 100 Height (Feet): 5 Height (Inches): 0.00 Weight (Pounds): 100 Respiratory/Chest: decreased breath sounds, other - Oxygen by rebreathing mask Abdomen: soft, non tender Extremities: no edema Neurologic/Psychiatric: alert, responsive Laboratory Tests Test 06/04/20 09:40 White Blood Count 16.8 K/UL (4.8-10.8) H Red Blood Count 4.49 M/UL (4.20-5.40) Hemoglobin 12.7 G/DL (12.0-16.0) Hematocrit 37.9 % (37.0-47.0) Mean Corpuscular Volume 85 FL (80-99) Mean Corpuscular Hemoglobin 28.3 PG (27.0-31.0) Mean Corpuscular Hemoglobin Concent 33.5 G/DL (32.0-36.0) Red Cell Distribution Width 13.9 % (11.6-14.8) Platelet Count 399 K/UL (150-450) Mean Platelet Volume 6.1 FL (6.5-10.1) L Neutrophils (%) (Auto) % (45.0-75.0) Lymphocytes (%) (Auto) % (20.0-45.0) Monocytes (%) (Auto) % (1.0-10.0) Eosinophils (%) (Auto) % (0.0-3.0) Basophils (%) (Auto) % (0.0-2.0) Differential Total Cells Counted 100 Neutrophils % (Manual) 95 % (45-75) H Lymphocytes % (Manual) 3 % (20-45) L Monocytes % (Manual) 2 % (1-10) Eosinophils % (Manual) 0 % (0-3) Basophils % (Manual) 0 % (0-2) Band Neutrophils 0 % (0-8) Platelet Estimate Adequate Platelet Morphology Normal Red Blood Cell Morphology Normal Sodium Level 129 MMOL/L (136-145) L Potassium Level 2.7 MMOL/L (3.5-5.1) *L Chloride Level 93 MMOL/L (98-107) L Carbon Dioxide Level 34 MMOL/L (21-32) H Anion Gap -1 mmol/L (5-15) L Blood Urea Nitrogen 79 mg/dL (7-18) H Creatinine 1.8 MG/DL (0.55-1.30) H Estimat Glomerular Filtration Rate 28.6 mL/min (>60) Glucose Level 349 MG/DL (74-106) #H Calcium Level 8.6 MG/DL (8.5-10.1) Phosphorus Level 4.4 MG/DL (2.5-4.9) Magnesium Level 2.1 MG/DL (1.8-2.4) Total Bilirubin 0.3 MG/DL (0.2-1.0) Aspartate Amino Transf (AST/SGOT) 26 U/L (15-37) Alanine Aminotransferase (ALT/SGPT) 18 U/L (12-78) Alkaline Phosphatase 61 U/L (46-116) C-Reactive Protein, Quantitative 21.5 mg/dL (0.00-0.90) H Total Protein 5.5 G/DL (6.4-8.2) L Albumin 1.9 G/DL (3.4-5.0) L Globulin 3.6 g/dL Albumin/Globulin Ratio 0.5 (1.0-2.7) L Current Medications Medications (Trade) Dose Ordered Sig/Ejnnie Route PRN Reason Start Time Stop Time Status Last Admin Dose Admin Acetaminophen (Tylenol) 500 mg Q6H PRN ORAL Mild Pain (Pain Scale 1-3) 05/19/20 16:45 06/18/20 16:44 Albuterol/ Ipratropium (Albuterol/ Ipratropium) 3 ml Q4H PRN HHN Shortness of Breath 05/31/20 08:45 06/05/20 08:44 06/03/20 14:31 Clonidine HCl (Catapres Tab) 0.1 mg Q4H PRN ORAL SBP > 170 05/24/20 13:15 08/22/20 13:14 Docusate Sodium (Colace) 100 mg TWICE A DAY ORAL 05/22/20 18:00 06/21/20 17:59 06/04/20 09:01 Enoxaparin Sodium (Lovenox) 40 mg DAILY SUBQ 06/02/20 09:00 08/31/20 08:59 06/04/20 09:03 Levofloxacin (Levaquin) 250 mg DAILY ORAL 06/02/20 09:00 06/09/20 08:59 06/04/20 09:01 Metolazone (Zaroxolyn) 5 mg DAILY ORAL 06/01/20 12:00 07/01/20 11:59 06/04/20 09:01 Mirtazapine (Remeron) 7.5 mg BEDTIME ORAL 06/02/20 21:00 08/31/20 20:59 06/03/20 20:54 Pantoprazole (Protonix) 40 mg Q12HR ORAL 05/22/20 21:00 06/21/20 20:59 06/04/20 09:01 Potassium Chloride 100 ml @ 100 mls/hr Q1HR IVPB 06/04/20 11:00 06/04/20 16:59 06/04/20 13:16 Potassium Chloride (K-Dur) 20 meq TWICE A DAY ORAL 06/04/20 11:00 06/05/20 10:59 06/04/20 12:21 Sodium Chloride 250 ml @ 30 mls/hr ONCE ONCE IV 06/04/20 17:00 06/05/20 01:19 Sodium Chloride 600 ml @ 100 mls/hr Q6H IV 06/04/20 11:00 06/04/20 16:59 06/04/20 11:00 Timothy Pennington MD Jun 04, 2020 14:09
--- NOTE | 2020-06-04 15:02 | Diagnostic Imaging Report ---
Clinical Indication: Cough, shortness of breath Technique: Spiral acquisitions obtained through the chest. No IV contrast utilized, reason not stated. Multiplanar reconstructions generated. Total dose length product 132 mGycm. CTDIvol(s) 3 mGy. Dose reduction achieved using automated exposure control Comparison: none Findings: There are large bilateral pleural effusions present. That on the left is slightly larger than that on the right. On the right, there is compressive atelectasis of much of the right lower lobe. On the left, there is compressive atelectasis of a significant portion of the lower lobe as well, as well as of the posterior and inferior lingula. The bilateral upper lobes, right middle lobe, and aerated portions of the lower lobes demonstrate fairly extensive and diffuse mild groundglass opacity in a nonlobular and nonsegmental pattern. The heart size is normal. There is questionably some pericardial fluid. Calcified nodes are seen in the right hilum. No mediastinal or hilar mass or adenopathy. The included thyroid is unremarkable. No axillary or chest wall mass or adenopathy. The included upper abdominal anatomy is unremarkable. The bones demonstrate mild degenerative spondylosis changes. Impression: Bilateral large pleural effusions Bilateral and extensive pulmonary parenchymal groundglass opacities in a nonsegmental and nonnodular distribution. Appearance is nonspecific. Patient has history of leukemia, and leukemic infiltrates concerning have this appearance. Pneumonia, pulmonary edema, and multiple noninfectious inflammatory disorders can also create this appearance. The CT scanner at [facility] is accredited by the [employer] and the scans are performed using protocols designed to limit radiation exposure to as low as reasonably achievable to attain images of sufficient resolution adequate for diagnostic evaluation.
--- NOTE | 2020-06-04 15:21 | Cardiac Electrophysiology PN ---
Assessment/Plan Assessment/Plan 1. Hypertension. Now off Lisinopril for acute renal failure On Lasix 40 po bid and Zaroxyline and prn Clonidine 2. Troponin leak. No CP, ECG non ischemic and likely due to renal failure 3. Bilateral pleural effusions. S/P Right side thoracentesis x 2. FU by Dr. Olson. S/P Left thoracentesis again x2 last one 05/29/20. Now on NRB FM 4. Hyponatremia. 5. CML x 5 years, sees oncologist in [facility] area DCed desatanib (also is the likely cause of pleural effusions) Per Dr Dolan 6. Acute renal failure with sudden JUMP in creatinine to 2.7. FU Dr Carpio. Better after iv fluid, Albumin and off Lisinopril. Cr now 1.0 DW RN Subjective Subjective S/P 2 Right sided thoracentesis ( 1.2 liters of serosanguineous fluid ) on 05/21/20 and 05/26/20 S/P 2 Left thoracentesis last one 05/29/20 On Face Mask today. No CP Objective Last 24 Hour Vital Signs Date Time Temp Pulse Resp B/P (MAP) Pulse Ox O2 Delivery O2 Flow Rate FiO2 06/04/20 08:00 Non-Rebreather 15.0 06/04/20 08:00 97.0 98 20 100/61 (74) 100 06/04/20 07:10 20 100 06/04/20 07:00 100 Bi-Pap 100 06/04/20 07:00 103 40 100 100 06/04/20 04:00 97.3 98 22 107/56 (73) 100 06/04/20 04:00 Bi-pap Bi-pap 06/04/20 04:00 100 06/04/20 04:00 98 06/04/20 03:12 103 21 100 100 06/04/20 00:00 101 06/04/20 00:00 100 06/04/20 00:00 Bi-pap Bi-pap 06/04/20 00:00 97.7 101 24 101/61 (74) 100 06/04/20 00:00 100 06/03/20 23:08 102 38 100 100 06/03/20 20:00 100 06/03/20 20:00 Bi-pap Bi-pap 06/03/20 20:00 98.9 118 21 113/58 (76) 100 06/03/20 20:00 101 06/03/20 19:39 Bi-Pap 06/03/20 19:30 102 38 100 100 06/03/20 16:00 Bi-pap 15.0 Non-Rebreather 06/03/20 16:00 97.0 107 28 143/65 (91) 96 06/03/20 16:00 110 06/03/20 16:00 100 Intake and Output 06/03/20 06/04/20 19:00 07:00 Intake Total 160 ml 360 ml Output Total 550 ml 400 ml Balance -390 ml -40 ml Intake Oral 160 ml 360 ml Output Urine Total 550 ml 400 ml # Bowel Movements 1 Laboratory Tests Test 06/04/20 09:40 White Blood Count 16.8 K/UL (4.8-10.8) H Red Blood Count 4.49 M/UL (4.20-5.40) Hemoglobin 12.7 G/DL (12.0-16.0) Hematocrit 37.9 % (37.0-47.0) Mean Corpuscular Volume 85 FL (80-99) Mean Corpuscular Hemoglobin 28.3 PG (27.0-31.0) Mean Corpuscular Hemoglobin Concent 33.5 G/DL (32.0-36.0) Red Cell Distribution Width 13.9 % (11.6-14.8) Platelet Count 399 K/UL (150-450) Mean Platelet Volume 6.1 FL (6.5-10.1) L Neutrophils (%) (Auto) % (45.0-75.0) Lymphocytes (%) (Auto) % (20.0-45.0) Monocytes (%) (Auto) % (1.0-10.0) Eosinophils (%) (Auto) % (0.0-3.0) Basophils (%) (Auto) % (0.0-2.0) Differential Total Cells Counted 100 Neutrophils % (Manual) 95 % (45-75) H Lymphocytes % (Manual) 3 % (20-45) L Monocytes % (Manual) 2 % (1-10) Eosinophils % (Manual) 0 % (0-3) Basophils % (Manual) 0 % (0-2) Band Neutrophils 0 % (0-8) Platelet Estimate Adequate Platelet Morphology Normal Red Blood Cell Morphology Normal Sodium Level 129 MMOL/L (136-145) L Potassium Level 2.7 MMOL/L (3.5-5.1) *L Chloride Level 93 MMOL/L (98-107) L Carbon Dioxide Level 34 MMOL/L (21-32) H Anion Gap -1 mmol/L (5-15) L Blood Urea Nitrogen 79 mg/dL (7-18) H Creatinine 1.8 MG/DL (0.55-1.30) H Estimat Glomerular Filtration Rate 28.6 mL/min (>60) Glucose Level 349 MG/DL (74-106) #H Calcium Level 8.6 MG/DL (8.5-10.1) Phosphorus Level 4.4 MG/DL (2.5-4.9) Magnesium Level 2.1 MG/DL (1.8-2.4) Total Bilirubin 0.3 MG/DL (0.2-1.0) Aspartate Amino Transf (AST/SGOT) 26 U/L (15-37) Alanine Aminotransferase (ALT/SGPT) 18 U/L (12-78) Alkaline Phosphatase 61 U/L (46-116) C-Reactive Protein, Quantitative 21.5 mg/dL (0.00-0.90) H Total Protein 5.5 G/DL (6.4-8.2) L Albumin 1.9 G/DL (3.4-5.0) L Globulin 3.6 g/dL Albumin/Globulin Ratio 0.5 (1.0-2.7) L Objective HEAD AND NECK: No JVD. On Venturi Mask LUNGS: Decreased breath sounds. CARDIOVASCULAR: Regular S1 and S2 and tachycardic. ABDOMEN: Soft. EXTREMITIES: No pitting edema. Cristian England MD Jun 04, 2020 15:21
[2020-06-04 16:00] VITALS: BP 99/63
[2020-06-04] MEDS ORDERED: NaCl 3% 500ml 250 ML IV ONE (17:00)
[2020-06-04 20:00] VITALS: BP 109/56
--- NOTE | 2020-06-04 21:18 | General Progress Note ---
Subjective ROS Limited/Unobtainable: Yes Allergies: Coded Allergies: No Known Allergies (Unverified , 05/19/20) Objective Last 24 Hour Vital Signs Date Time Temp Pulse Resp B/P (MAP) Pulse Ox O2 Delivery O2 Flow Rate FiO2 06/04/20 19:32 98 06/04/20 18:49 97 Non-Rebreather 15.0 100 06/04/20 16:00 95 06/04/20 16:00 15.0 06/04/20 16:00 Non-Rebreather 15.0 06/04/20 16:00 97.7 93 20 99/63 (75) 98 06/04/20 12:00 98.0 100 20 97/67 (77) 100 06/04/20 12:00 15.0 06/04/20 12:00 Non-Rebreather 15.0 06/04/20 11:36 92 06/04/20 08:00 15.0 06/04/20 08:00 Non-Rebreather 15.0 06/04/20 08:00 97.0 98 20 100/61 (74) 100 06/04/20 07:39 93 06/04/20 07:15 15.0 06/04/20 07:10 20 100 06/04/20 07:00 100 Bi-Pap 100 06/04/20 07:00 103 40 100 100 06/04/20 04:00 97.3 98 22 107/56 (73) 100 06/04/20 04:00 Bi-pap Bi-pap 06/04/20 04:00 100 06/04/20 04:00 98 06/04/20 03:12 103 21 100 100 06/04/20 00:00 101 06/04/20 00:00 100 06/04/20 00:00 Bi-pap Bi-pap 06/04/20 00:00 97.7 101 24 101/61 (74) 100 06/04/20 00:00 100 06/03/20 23:08 102 38 100 100 Intake and Output 06/03/20 06/04/20 19:00 07:00 Intake Total 160 ml 360 ml Output Total 550 ml 400 ml Balance -390 ml -40 ml Intake Oral 160 ml 360 ml Output Urine Total 550 ml 400 ml # Bowel Movements 1 Laboratory Tests 06/04/20 09:40: White Blood Count 16.8H, Red Blood Count 4.49, Hemoglobin 12.7, Hematocrit 37.9, Mean Corpuscular Volume 85, Mean Corpuscular Hemoglobin 28.3, Mean Corpuscular Hemoglobin Concent 33.5, Red Cell Distribution Width 13.9, Platelet Count 399, Mean Platelet Volume 6.1L, Neutrophils (%) (Auto) , Lymphocytes (%) (Auto) , Monocytes (%) (Auto) , Eosinophils (%) (Auto) , Basophils (%) (Auto) , Differential Total Cells Counted 100, Neutrophils % (Manual) 95H, Lymphocytes % (Manual) 3L, Monocytes % (Manual) 2, Eosinophils % (Manual) 0, Basophils % (Manual) 0, Band Neutrophils 0, Platelet Estimate Adequate, Platelet Morphology Normal, Red Blood Cell Morphology Normal, Sodium Level 129L, Potassium Level 2.7*L, Chloride Level 93L, Carbon Dioxide Level 34H, Anion Gap -1L, Blood Urea Nitrogen 79H, Creatinine 1.8H, Estimat Glomerular Filtration Rate 28.6, Glucose Level 349#H, Calcium Level 8.6, Phosphorus Level 4.4, Magnesium Level 2.1, Total Bilirubin 0.3, Aspartate Amino Transf (AST/SGOT) 26, Alanine Aminotransferase (ALT/SGPT) 18, Alkaline Phosphatase 61, C-Reactive Protein, Quantitative 21.5H, Total Protein 5.5L, Albumin 1.9L, Globulin 3.6, Albumin/Globulin Ratio 0.5L Height (Feet): 5 Height (Inches): 0.00 Weight (Pounds): 100 Assessment/Plan Problem List: (1) Leukemia ICD Codes: C95.90 - Leukemia, unspecified not having achieved remission SNOMED: 74131256 (2) Bilateral pleural effusion ICD Codes: J90 - Pleural effusion, not elsewhere classified SNOMED: 727253852 Status: progressing Assessment/Plan: pleural effusion not hypoxic afebrile resp insuff on high oxygen leukemia Tiara Jara MD Jun 04, 2020 21:18
[2020-06-05] VITALS: BP 111/60
[2020-06-05 04:00] VITALS: BP 109/56
[2020-06-05 04:19] LABS: HEMATOCRIT 36.6 % (37.0-47.0); HEMOGLOBIN 12.4 G/DL (12.0-16.0); MEAN CORPUSCULAR VOLUME 84 FL (80-99); PLATELET COUNT 431 K/UL (150-450); RED BLOOD COUNT 4.34 M/UL (4.20-5.40); RED CELL DISTRIBUTION WIDTH 13.7 % (11.6-14.8); WHITE BLOOD COUNT 13.6 K/UL (4.8-10.8)
[2020-06-05 04:45] LABS: ALANINE AMINOTRANSFERASE 10 U/L (12-78); ALBUMIN 1.8 G/DL (3.4-5.0); ALBUMIN/GLOBULIN RATIO 0.5 (1.0-2.7); ALKALINE PHOSPHATASE 57 U/L (46-116); ASPARTATE AMINO TRANSFERASE 22 U/L (15-37); BILIRUBIN,TOTAL 0.3 MG/DL (0.2-1.0); BLOOD UREA NITROGEN 63 mg/dL (7-18); CARBON DIOXIDE 32 MMOL/L (21-32); CHLORIDE 100 MMOL/L (98-107); CREATININE 1.2 MG/DL (0.55-1.30); PHOSPHORUS 2.8 MG/DL (2.5-4.9); SODIUM 136 MMOL/L (136-145)
[2020-06-05] MEDS: NovoLOG Insulin Flexpen SUBQ SCH ×7 (06:41→20:12)
--- NOTE | 2020-06-05 07:45 | Consultation ---
DATE OF CONSULTATION: 06/05/2020 ENDOCRINOLOGY CONSULTATION CONSULTING PHYSICIAN: Geoff Gomez MD REFERRING PHYSICIAN: Tiara Jara MD REASON FOR CONSULTATION: Hyperglycemia. HISTORY OF PRESENT ILLNESS: The patient is a 60-year-old female with a history of leukemia who had a prolonged hospitalization, no history of diabetes, but was found to have blood glucose elevated; therefore, Endocrinology consulted. She was admitted to the hospital on 05/19/2020. PAST MEDICAL HISTORY: 1. Hypertension. 2. Leukemia. 3. Pleural effusion. PAST SURGICAL HISTORY: Pleural tap. FAMILY HISTORY: Noncontributory. SOCIAL HISTORY: Lives at home. No smoking, alcohol, or drug use. REVIEW OF SYSTEMS: As per HPI. MEDICATIONS: Reviewed and reconciled. LABORATORY VALUES: Sodium 136, potassium 4.0, chloride 100, bicarb 32, BUN 63, creatinine 1.2, glucose 233. TSH is 1.4. PHYSICAL EXAMINATION: VITAL SIGNS: Blood pressure 109/56, heart rate 99, respiratory rate 24, temperature 98. HEENT: Pupils are equal and reactive to light. Sclerae are anicteric. NECK: No JVD. HEART: Regular. LUNGS: Clear. ABDOMEN: Positive bowel sounds. EXTREMITIES: Positive for edema. DIAGNOSES: 1. Steroid-induced diabetes. 2. Leukemia. 3. Pleural effusion. 4. Renal failure. 5. Hypertension. PLAN: 1. Start Levemir 12 units daily. 2. NovoLog 4 units before each meal. 3. Start NovoLog sliding scale before meals and bedtime. 4. Hypoglycemia protocol is in order. 5. Further adjustment according to blood glucose values. Thank you, Dr. Jara, for the courtesy of this consultation. Geoff Gomez M.D. DR: TRA/marco a JOB#: [id number] CC: SINA
[2020-06-05 08:00] VITALS: BP 98/64
--- NOTE | 2020-06-05 08:07 | Hematology/Onc Progress Note ---
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, sees oncologist in [facility] --> at this time STOP desatanib (also is the likely cause of pleural effusions) --> no is s/p thora per pulm/cards --> 06/04 started low dose dexamethasone for immune response suppression --> wbc trend 18->7->10 --> hgb 11.5->12->13 --> ABX ceftriaxone-->off --> bipap, thora prn, may need ct tube --> needs molecular and cytogenectic response for CML, f/u oncologist outpatient # Bilateral pleural effusion --> as per pulm, is on bipap --> thora as needed --> repeat thora prn 05/29 # HTN --> hydralazine and lisinopril --> sbp goal <140 # Dehydration --> goal of euvolemia # Elevated ddimer --> duplex lower ext r/o dvt==>neg # Dvt ppx lovenox sq Appreciate consultation and zachariah RN Subjective HEENT: Denies: no symptoms, eye pain, blurred vision, tearing, double vision, ear pain, ear discharge, nose pain, nose congestion, throat pain, throat swelling, mouth pain, mouth swelling, other Cardiovascular: Denies: no symptoms, chest pain, edema, irregular heart rate, lightheadedness, palpitations, syncope, other Respiratory: Denies: no symptoms, cough, shortness of breath, SOB with excertion, SOB at rest, sputum, wheezing, other Gastrointestinal/Abdominal: Denies: no symptoms, abdomen distended, abdominal pain, black stools, tarry stools, blood in stool, constipated, diarrhea, difficulty swallowing, nausea, poor appetite, poor fluid intake, rectal bleeding, vomiting, other Genitourinary: Reports: no symptoms, burning, discharge, frequency, flank pain, hematuria, incontinence, pain, urgency, other Hematologic/Lymphatic: Denies: no symptoms, anemia, easy bleeding, easy bruising, adenopathy, other Allergies: Coded Allergies: No Known Allergies (Unverified , 05/19/20) Subjective 05/21 labs are noted, no bleeding, with pleural effusions due to desatanbib, s/p thora 05/22 labs are noted, no bleeding, on bipap, i dw her today to stop her med at once 05/24 wbc is improved, continue on ctx for one more day per id, bipap 05/26 have ordered for repeat cxr this am to reeval pleural effusions, labs noted 05/27 with b/l pleural effusions, aware from pulm, thora prn 05/28 has been refusing scds, thus will start lovenox today, breathing better s/p thora 05/29 with nonrebreather, for thora today, no night sweats, meds noted 05/31 remains on bipap, meds reviewed, off desatanib, worse effusion r>l 06/01 on bipap this am, labs pending for am 06/02 unable to wean off facemask, requiring it, will dw sister today 06/03 labs reviewed, meds noted, continues to be bipap support 06/04 no aspiration, is comfortable, meds reviewed, no bleeding 06/05 dw pulm yes, may need ct surg eval, chest tube, started steriods Objective Objective Current Medications Medications (Trade) Dose Ordered Sig/Jennie Route PRN Reason Start Time Stop Time Status Last Admin Dose Admin Acetaminophen (Tylenol) 500 mg Q6H PRN ORAL Mild Pain (Pain Scale 1-3) 05/19/20 16:45 06/18/20 16:44 Albuterol/ Ipratropium (Albuterol/ Ipratropium) 3 ml Q4H PRN HHN Shortness of Breath 05/31/20 08:45 06/05/20 08:44 06/03/20 14:31 Clonidine HCl (Catapres Tab) 0.1 mg Q4H PRN ORAL SBP > 170 05/24/20 13:15 08/22/20 13:14 Dexamethasone (Decadron) 4 mg DAILY ORAL 06/04/20 15:30 06/14/20 15:29 06/04/20 17:33 Dextrose (Dextrose 50%) 25 ml Q30M PRN IV Hypoglycemia 06/05/20 06:30 09/03/20 06:29 Dextrose (Dextrose 50%) 50 ml Q30M PRN IV Hypoglycemia 06/05/20 06:30 09/03/20 06:29 Docusate Sodium (Colace) 100 mg TWICE A DAY ORAL 05/22/20 18:00 06/21/20 17:59 06/04/20 17:33 Enoxaparin Sodium (Lovenox) 40 mg DAILY SUBQ 06/02/20 09:00 08/31/20 08:59 06/04/20 09:03 Insulin Aspart (NovoLOG) BEFORE MEALS AND HS SUBQ 06/05/20 06:30 09/03/20 06:29 06/05/20 06:41 Insulin Aspart (NovoLOG) 4 units NOVOTIAC SUBQ 06/05/20 06:30 09/03/20 06:29 06/05/20 06:41 Insulin Detemir (Levemir) 12 units DAILY SUBQ 06/05/20 09:00 09/03/20 08:59 Levofloxacin (Levaquin) 250 mg DAILY ORAL 06/02/20 09:00 06/09/20 08:59 06/04/20 09:01 Metolazone (Zaroxolyn) 5 mg DAILY ORAL 06/01/20 12:00 07/01/20 11:59 06/04/20 09:01 Mirtazapine (Remeron) 7.5 mg BEDTIME ORAL 06/02/20 21:00 08/31/20 20:59 06/04/20 21:00 Pantoprazole (Protonix) 40 mg Q12HR ORAL 05/22/20 21:00 06/21/20 20:59 06/04/20 21:00 Potassium Chloride (K-Dur) 20 meq TWICE A DAY ORAL 06/04/20 11:00 06/05/20 10:59 06/04/20 17:34 Last 24 Hour Vital Signs Date Time Temp Pulse Resp B/P (MAP) Pulse Ox O2 Delivery O2 Flow Rate FiO2 06/05/20 04:00 99 06/05/20 04:00 Non-Rebreather 15.0 06/05/20 04:00 98.0 91 24 109/56 (73) 99 06/05/20 04:00 15.0 06/05/20 00:00 96 06/05/20 00:00 15.0 06/05/20 00:00 97.7 91 24 111/60 (77) 94 06/05/20 00:00 Non-Rebreather 15.0 10/8/20 20:00 Non-Rebreather 15.0 06/04/20 20:00 98.0 99 24 109/56 (73) 99 06/04/20 20:00 15.0 06/04/20 19:32 98 06/04/20 18:49 97 Non-Rebreather 15.0 100 06/04/20 16:00 95 06/04/20 16:00 15.0 06/04/20 16:00 Non-Rebreather 15.0 06/04/20 16:00 97.7 93 20 99/63 (75) 98 06/04/20 12:00 98.0 100 20 97/67 (77) 100 06/04/20 12:00 15.0 06/04/20 12:00 Non-Rebreather 15.0 06/04/20 11:36 92 06/04/20 08:00 15.0 06/04/20 08:00 Non-Rebreather 15.0 06/04/20 08:00 97.0 98 20 100/61 (74) 100 06/04/20 07:39 93 06/04/20 07:15 15.0 06/04/20 07:10 20 100 06/04/20 07:00 100 Bi-Pap 100 06/04/20 07:00 103 40 100 100 06/04/20 04:00 97.3 98 22 107/56 (73) 100 06/04/20 04:00 Bi-pap Bi-pap 06/04/20 04:00 100 06/04/20 04:00 98 06/04/20 03:12 103 21 100 100 06/04/20 00:00 101 06/04/20 00:00 100 06/04/20 00:00 Bi-pap Bi-pap 06/04/20 00:00 97.7 101 24 101/61 (74) 100 06/04/20 00:00 100 06/03/20 23:08 102 38 100 100 06/03/20 20:00 100 06/03/20 20:00 Bi-pap Bi-pap 06/03/20 20:00 98.9 118 21 113/58 (76) 100 06/03/20 20:00 101 06/03/20 19:39 Bi-Pap 06/03/20 19:30 102 38 100 100 10/7/20 16:00 Bi-pap 15.0 Non-Rebreather 06/03/20 16:00 97.0 107 28 143/65 (91) 96 06/03/20 16:00 110 06/03/20 16:00 100 06/03/20 14:32 108 52 93 Bi-Pap 100 106 41 95 100 06/03/20 14:00 40 94 06/03/20 12:04 Non-Rebreather 15.0 Non-Rebreather 06/03/20 12:00 100 06/03/20 12:00 103 06/03/20 12:00 97.5 109 26 91/62 (72) 95 06/03/20 10:30 107 49 92 100 06/03/20 10:00 100 06/03/20 08:40 103 55 92 100 Intake and Output 06/04/20 06/05/20 19:00 07:00 Intake Total 470 ml 280 ml Output Total 1100 ml 500 ml Balance -630 ml -220 ml Intake Oral 440 ml IV Total 30 ml 280 ml Output Urine Total 1100 ml 500 ml # Bowel Movements 1 Labs Test 06/03/20 02:50 06/03/20 08:12 06/04/20 09:40 06/05/20 03:15 White Blood Count 13.2 K/UL (4.8-10.8) 16.8 K/UL (4.8-10.8) 13.6 K/UL (4.8-10.8) Red Blood Count 4.22 M/UL (4.20-5.40) 4.49 M/UL (4.20-5.40) 4.34 M/UL (4.20-5.40) Hemoglobin 12.1 G/DL (12.0-16.0) 12.7 G/DL (12.0-16.0) 12.4 G/DL (12.0-16.0) Hematocrit 35.8 % (37.0-47.0) 37.9 % (37.0-47.0) 36.6 % (37.0-47.0) Mean Corpuscular Volume 85 FL (80-99) 85 FL (80-99) 84 FL (80-99) Mean Corpuscular Hemoglobin 28.7 PG (27.0-31.0) 28.3 PG (27.0-31.0) 28.5 PG (27.0-31.0) Mean Corpuscular Hemoglobin Concent 33.8 G/DL (32.0-36.0) 33.5 G/DL (32.0-36.0) 33.8 G/DL (32.0-36.0) Red Cell Distribution Width 13.8 % (11.6-14.8) 13.9 % (11.6-14.8) 13.7 % (11.6-14.8) Platelet Count 436 K/UL (150-450) 399 K/UL (150-450) 431 K/UL (150-450) Mean Platelet Volume 6.1 FL (6.5-10.1) 6.1 FL (6.5-10.1) 6.0 FL (6.5-10.1) Neutrophils (%) (Auto) % (45.0-75.0) % (45.0-75.0) % (45.0-75.0) Lymphocytes (%) (Auto) % (20.0-45.0) % (20.0-45.0) % (20.0-45.0) Monocytes (%) (Auto) % (1.0-10.0) % (1.0-10.0) % (1.0-10.0) Eosinophils (%) (Auto) % (0.0-3.0) % (0.0-3.0) % (0.0-3.0) Basophils (%) (Auto) % (0.0-2.0) % (0.0-2.0) % (0.0-2.0) Sodium Level 136 MMOL/L (136-145) 129 MMOL/L (136-145) 136 MMOL/L (136-145) Potassium Level 3.7 MMOL/L (3.5-5.1) 2.7 MMOL/L (3.5-5.1) 4.0 MMOL/L (3.5-5.1) Chloride Level 95 MMOL/L (98-107) 93 MMOL/L (98-107) 100 MMOL/L (98-107) Carbon Dioxide Level 32 MMOL/L (21-32) 34 MMOL/L (21-32) 32 MMOL/L (21-32) Anion Gap 9 mmol/L (5-15) -1 mmol/L (5-15) Blood Urea Nitrogen 63 mg/dL (7-18) 79 mg/dL (7-18) 63 mg/dL (7-18) Creatinine 1.4 MG/DL (0.55-1.30) 1.8 MG/DL (0.55-1.30) 1.2 MG/DL (0.55-1.30) Estimat Glomerular Filtration Rate 38.2 mL/min (>60) 28.6 mL/min (>60) 45.7 mL/min (>60) Glucose Level 174 MG/DL (74-106) 349 MG/DL (74-106) 233 MG/DL (74-106) Calcium Level 8.9 MG/DL (8.5-10.1) 8.6 MG/DL (8.5-10.1) 8.0 MG/DL (8.5-10.1) Phosphorus Level 4.0 MG/DL (2.5-4.9) 4.4 MG/DL (2.5-4.9) 2.8 MG/DL (2.5-4.9) Magnesium Level 2.0 MG/DL (1.8-2.4) 2.1 MG/DL (1.8-2.4) 2.1 MG/DL (1.8-2.4) Total Bilirubin 0.3 MG/DL (0.2-1.0) 0.3 MG/DL (0.2-1.0) 0.3 MG/DL (0.2-1.0) Aspartate Amino Transf (AST/SGOT) 27 U/L (15-37) 26 U/L (15-37) 22 U/L (15-37) Alanine Aminotransferase (ALT/SGPT) 13 U/L (12-78) 18 U/L (12-78) 10 U/L (12-78) Alkaline Phosphatase 64 U/L (46-116) 61 U/L (46-116) 57 U/L (46-116) Pro-B-Type Natriuretic Peptide 22051 pg/mL (0-125) 9716 pg/mL (0-125) Total Protein 6.5 G/DL (6.4-8.2) 5.5 G/DL (6.4-8.2) 5.3 G/DL (6.4-8.2) Albumin 2.2 G/DL (3.4-5.0) 1.9 G/DL (3.4-5.0) 1.8 G/DL (3.4-5.0) Globulin 4.3 g/dL 3.6 g/dL 3.5 g/dL Albumin/Globulin Ratio 0.5 (1.0-2.7) 0.5 (1.0-2.7) 0.5 (1.0-2.7) Arterial Blood pH 7.423 (7.350-7.450) Arterial Blood Partial Pressure CO2 53.9 mmHg (35.0-45.0) Arterial Blood Partial Pressure O2 52.4 mmHg (75.0-100.0) Arterial Blood HCO3 34.4 mmol/L (22.0-26.0) Arterial Blood Oxygen Saturation 86.2 % (95-100) Arterial Blood Base Excess 8.3 (-2-2) Sammy Test Positive Differential Total Cells Counted 100 Neutrophils % (Manual) 95 % (45-75) Lymphocytes % (Manual) 3 % (20-45) Monocytes % (Manual) 2 % (1-10) Eosinophils % (Manual) 0 % (0-3) Basophils % (Manual) 0 % (0-2) Band Neutrophils 0 % (0-8) Platelet Estimate Adequate Platelet Morphology Normal Red Blood Cell Morphology Normal C-Reactive Protein, Quantitative 21.5 mg/dL (0.00-0.90) 15.6 mg/dL (0.00-0.90) Test 06/05/20 06:38 Height (Feet): 5 Height (Inches): 0.00 Weight (Pounds): 100 Dionicio Higgins MD Jun 05, 2020 08:07
[2020-06-05] MEDS: Enoxaparin 40mg Inj SUBQ SCH (09:11)
[2020-06-05] MEDS: Docusate 100mg cap ORAL SCH ×3 (09:11→17:43)
[2020-06-05] MEDS: Levemir Flexpen SUBQ SCH (09:13)
--- NOTE | 2020-06-05 10:10 | Infectious Diseases Prog Note ---
Assessment/Plan Assessment/Plan IMPRESSION: Leukocytosis, systemic inflammatory response syndrome or sepsis, Recurrent pleural effusion, CML, Accelerated hypertension, Elevation of troponin. Hypoxemia Hyperglycemia RECOMMENDATION: Continue PO Levaquin May need pleurodesis Subjective ROS Limited/Unobtainable: No Constitutional: Reports: no symptoms, other - feels better Respiratory: Reports: shortness of breath Gastrointestinal/Abdominal: Reports: no symptoms Genitourinary: Reports: no symptoms Allergies: Coded Allergies: No Known Allergies (Unverified , 05/19/20) Objective Last 24 Hour Vital Signs Date Time Temp Pulse Resp B/P (MAP) Pulse Ox O2 Delivery O2 Flow Rate FiO2 06/05/20 08:00 96.3 99 20 98/64 (75) 99 06/05/20 08:00 15.0 06/05/20 07:46 102 06/05/20 04:00 99 06/05/20 04:00 Non-Rebreather 15.0 06/05/20 04:00 98.0 91 24 109/56 (73) 99 06/05/20 04:00 15.0 06/05/20 00:00 96 06/05/20 00:00 15.0 06/05/20 00:00 97.7 91 24 111/60 (77) 94 06/05/20 00:00 Non-Rebreather 15.0 06/04/20 20:00 Non-Rebreather 15.0 06/04/20 20:00 98.0 99 24 109/56 (73) 99 06/04/20 20:00 15.0 06/04/20 19:32 98 06/04/20 18:49 97 Non-Rebreather 15.0 100 06/04/20 16:00 95 06/04/20 16:00 15.0 06/04/20 16:00 Non-Rebreather 15.0 06/04/20 16:00 97.7 93 20 99/63 (75) 98 06/04/20 12:00 98.0 100 20 97/67 (77) 100 06/04/20 12:00 15.0 06/04/20 12:00 Non-Rebreather 15.0 06/04/20 11:36 92 Height (Feet): 5 Height (Inches): 0.00 Weight (Pounds): 100 General Appearance: no acute distress HEENT: mucous membranes moist Respiratory/Chest: decreased breath sounds, other - Oxygen by rebreathing mask Cardiovascular: tachycardia Abdomen: soft, non tender Neurologic/Psychiatric: alert, oriented x 3, responsive Laboratory Tests Test 06/05/20 03:15 06/05/20 06:38 White Blood Count 13.6 K/UL (4.8-10.8) H Red Blood Count 4.34 M/UL (4.20-5.40) Hemoglobin 12.4 G/DL (12.0-16.0) Hematocrit 36.6 % (37.0-47.0) L Mean Corpuscular Volume 84 FL (80-99) Mean Corpuscular Hemoglobin 28.5 PG (27.0-31.0) Mean Corpuscular Hemoglobin Concent 33.8 G/DL (32.0-36.0) Red Cell Distribution Width 13.7 % (11.6-14.8) Platelet Count 431 K/UL (150-450) Mean Platelet Volume 6.0 FL (6.5-10.1) L Neutrophils (%) (Auto) % (45.0-75.0) Lymphocytes (%) (Auto) % (20.0-45.0) Monocytes (%) (Auto) % (1.0-10.0) Eosinophils (%) (Auto) % (0.0-3.0) Basophils (%) (Auto) % (0.0-2.0) Differential Total Cells Counted 100 Neutrophils % (Manual) 96 % (45-75) H Lymphocytes % (Manual) 4 % (20-45) L Monocytes % (Manual) 0 % (1-10) L Eosinophils % (Manual) 0 % (0-3) Basophils % (Manual) 0 % (0-2) Band Neutrophils 0 % (0-8) Platelet Estimate Adequate Platelet Morphology Normal Red Blood Cell Morphology Normal Sodium Level 136 MMOL/L (136-145) Potassium Level 4.0 MMOL/L (3.5-5.1) Chloride Level 100 MMOL/L (98-107) Carbon Dioxide Level 32 MMOL/L (21-32) Blood Urea Nitrogen 63 mg/dL (7-18) H Creatinine 1.2 MG/DL (0.55-1.30) Estimat Glomerular Filtration Rate 45.7 mL/min (>60) Glucose Level 233 MG/DL (74-106) #H Calcium Level 8.0 MG/DL (8.5-10.1) L Phosphorus Level 2.8 MG/DL (2.5-4.9) Magnesium Level 2.1 MG/DL (1.8-2.4) Total Bilirubin 0.3 MG/DL (0.2-1.0) Aspartate Amino Transf (AST/SGOT) 22 U/L (15-37) Alanine Aminotransferase (ALT/SGPT) 10 U/L (12-78) L Alkaline Phosphatase 57 U/L (46-116) C-Reactive Protein, Quantitative 15.6 mg/dL (0.00-0.90) H Pro-B-Type Natriuretic Peptide 9716 pg/mL (0-125) H Total Protein 5.3 G/DL (6.4-8.2) L Albumin 1.8 G/DL (3.4-5.0) L Globulin 3.5 g/dL Albumin/Globulin Ratio 0.5 (1.0-2.7) L POC Whole Blood Glucose Pending Current Medications Medications (Trade) Dose Ordered Sig/Jennie Route PRN Reason Start Time Stop Time Status Last Admin Dose Admin Acetaminophen (Tylenol) 500 mg Q6H PRN ORAL Mild Pain (Pain Scale 1-3) 05/19/20 16:45 06/18/20 16:44 Clonidine HCl (Catapres Tab) 0.1 mg Q4H PRN ORAL SBP > 170 05/24/20 13:15 08/22/20 13:14 Dexamethasone (Decadron) 4 mg DAILY ORAL 06/04/20 15:30 06/14/20 15:29 06/05/20 09:14 Dextrose (Dextrose 50%) 25 ml Q30M PRN IV Hypoglycemia 06/05/20 06:30 09/03/20 06:29 Dextrose (Dextrose 50%) 50 ml Q30M PRN IV Hypoglycemia 06/05/20 06:30 09/03/20 06:29 Docusate Sodium (Colace) 100 mg TWICE A DAY ORAL 05/22/20 18:00 06/21/20 17:59 06/05/20 09:11 Enoxaparin Sodium (Lovenox) 40 mg DAILY SUBQ 06/02/20 09:00 08/31/20 08:59 06/05/20 09:11 Insulin Aspart (NovoLOG) BEFORE MEALS AND HS SUBQ 06/05/20 06:30 09/03/20 06:29 06/05/20 06:41 Insulin Aspart (NovoLOG) 4 units NOVOTIAC SUBQ 06/05/20 06:30 09/03/20 06:29 06/05/20 06:41 Insulin Detemir (Levemir) 12 units DAILY SUBQ 06/05/20 09:00 09/03/20 08:59 06/05/20 09:13 Levofloxacin (Levaquin) 250 mg DAILY ORAL 06/02/20 09:00 06/09/20 08:59 06/05/20 09:14 Metolazone (Zaroxolyn) 5 mg DAILY ORAL 06/01/20 12:00 07/01/20 11:59 06/05/20 09:14 Mirtazapine (Remeron) 7.5 mg BEDTIME ORAL 06/02/20 21:00 08/31/20 20:59 06/04/20 21:00 Pantoprazole (Protonix) 40 mg Q12HR ORAL 05/22/20 21:00 06/21/20 20:59 06/05/20 09:14 Potassium Chloride (K-Dur) 20 meq TWICE A DAY ORAL 06/04/20 11:00 06/05/20 10:59 06/05/20 09:14 Timothy Pennington MD Jun 05, 2020 10:10
[2020-06-05 12:00] VITALS: BP 95/57
--- NOTE | 2020-06-05 12:01 | Pulmonology Progress Note ---
Subjective ROS Limited/Unobtainable: No Interval Events: Diuresing well; s/p repeat thoracentesis R side; 1.6L removed Constitutional: Reports: no symptoms, other - feels better HEENT: Repors: no symptoms Respiratory: Reports: dry cough Gastrointestinal/Abdominal: Reports: no symptoms Genitourinary: Reports: no symptoms Neurologic: Reports: no symptoms Musculoskeletal: Denies: pain Allergies: Coded Allergies: No Known Allergies (Unverified , 05/19/20) Objective Last 24 Hour Vital Signs Date Time Temp Pulse Resp B/P (MAP) Pulse Ox O2 Delivery O2 Flow Rate FiO2 06/05/20 11:55 15.0 06/05/20 11:53 Non-Rebreather 15.0 06/05/20 08:00 96.3 99 20 98/64 (75) 99 06/05/20 08:00 Non-Rebreather 15.0 06/05/20 08:00 15.0 06/05/20 07:46 102 06/05/20 04:00 99 06/05/20 04:00 Non-Rebreather 15.0 06/05/20 04:00 98.0 91 24 109/56 (73) 99 06/05/20 04:00 15.0 06/05/20 00:00 96 06/05/20 00:00 15.0 06/05/20 00:00 97.7 91 24 111/60 (77) 94 06/05/20 00:00 Non-Rebreather 15.0 06/04/20 20:00 Non-Rebreather 15.0 06/04/20 20:00 98.0 99 24 109/56 (73) 99 06/04/20 20:00 15.0 06/04/20 19:32 98 06/04/20 18:49 97 Non-Rebreather 15.0 100 06/04/20 16:00 95 06/04/20 16:00 15.0 06/04/20 16:00 Non-Rebreather 15.0 06/04/20 16:00 97.7 93 20 99/63 (75) 98 Intake and Output 06/04/20 06/05/20 19:00 07:00 Intake Total 470 ml 280 ml Output Total 1100 ml 500 ml Balance -630 ml -220 ml Intake Oral 440 ml IV Total 30 ml 280 ml Output Urine Total 1100 ml 500 ml # Bowel Movements 1 General Appearance: no acute distress Respiratory: chest wall non-tender, normal breath sounds, no respiratory distress, no accessory muscle use, decreased breath sounds Cardiovascular: normal peripheral pulses, normal rate Abdomen: normal bowel sounds Extremities: no cyanosis, no clubbing, no edema Laboratory Tests 06/05/20 03:15: White Blood Count 13.6H, Red Blood Count 4.34, Hemoglobin 12.4, Hematocrit 36.6L , Mean Corpuscular Volume 84, Mean Corpuscular Hemoglobin 28.5, Mean Corpuscular Hemoglobin Concent 33.8, Red Cell Distribution Width 13.7, Platelet Count 431, Mean Platelet Volume 6.0L, Neutrophils (%) (Auto) , Lymphocytes (%) (Auto) , Monocytes (%) (Auto) , Eosinophils (%) (Auto) , Basophils (%) (Auto) , Differential Total Cells Counted 100, Neutrophils % (Manual) 96H, Lymphocytes % (Manual) 4L, Monocytes % (Manual) 0L, Eosinophils % (Manual) 0, Basophils % (Manual) 0, Band Neutrophils 0, Platelet Estimate Adequate, Platelet Morphology Normal, Red Blood Cell Morphology Normal, Sodium Level 136, Potassium Level 4.0, Chloride Level 100, Carbon Dioxide Level 32, Blood Urea Nitrogen 63H, Creatinine 1.2, Estimat Glomerular Filtration Rate 45.7, Glucose Level 233#H, Calcium Level 8.0L, Phosphorus Level 2.8, Magnesium Level 2.1, Total Bilirubin 0.3, Aspartate Amino Transf (AST/SGOT) 22, Alanine Aminotransferase (ALT/SGPT) 10L, Alkaline Phosphatase 57, C-Reactive Protein, Quantitative 15.6H, Pro-B-Type Natriuretic Peptide 9716H, Total Protein 5.3L, Albumin 1.8L, Globulin 3.5, Albumin/Globulin Ratio 0.5L 06/05/20 06:38: POC Whole Blood Glucose [Pending] 06/05/20 11:51: POC Whole Blood Glucose 103 Current Medications Medications (Trade) Dose Ordered Sig/Jennie Route PRN Reason Start Time Stop Time Status Last Admin Dose Admin Acetaminophen (Tylenol) 500 mg Q6H PRN ORAL Mild Pain (Pain Scale 1-3) 05/19/20 16:45 06/18/20 16:44 Clonidine HCl (Catapres Tab) 0.1 mg Q4H PRN ORAL SBP > 170 05/24/20 13:15 08/22/20 13:14 Dexamethasone (Decadron) 4 mg DAILY ORAL 06/04/20 15:30 06/14/20 15:29 06/05/20 09:14 Dextrose (Dextrose 50%) 25 ml Q30M PRN IV Hypoglycemia 06/05/20 06:30 09/03/20 06:29 Dextrose (Dextrose 50%) 50 ml Q30M PRN IV Hypoglycemia 06/05/20 06:30 09/03/20 06:29 Docusate Sodium (Colace) 100 mg TWICE A DAY ORAL 05/22/20 18:00 06/21/20 17:59 06/05/20 09:11 Enoxaparin Sodium (Lovenox) 40 mg DAILY SUBQ 06/02/20 09:00 08/31/20 08:59 06/05/20 09:11 Insulin Aspart (NovoLOG) BEFORE MEALS AND HS SUBQ 06/05/20 06:30 09/03/20 06:29 06/05/20 06:41 Insulin Aspart (NovoLOG) 4 units NOVOTIAC SUBQ 06/05/20 06:30 09/03/20 06:29 06/05/20 06:41 Insulin Detemir (Levemir) 12 units DAILY SUBQ 06/05/20 09:00 09/03/20 08:59 06/05/20 09:13 Levofloxacin (Levaquin) 250 mg DAILY ORAL 06/02/20 09:00 06/09/20 08:59 06/05/20 09:14 Metolazone (Zaroxolyn) 5 mg DAILY ORAL 06/01/20 12:00 07/01/20 11:59 06/05/20 09:14 Mirtazapine (Remeron) 7.5 mg BEDTIME ORAL 06/02/20 21:00 08/31/20 20:59 06/04/20 21:00 Pantoprazole (Protonix) 40 mg Q12HR ORAL 05/22/20 21:00 06/21/20 20:59 06/05/20 09:14 Assessment/Plan Assessment/Plan IMPRESSION: 1. History of CML, on dasatinib. 2. Possible pneumonia. 3. Large pleural effusion, s/p B thoracentesis. 4. Hypertension. 5. Elevated D-dimer DISCUSSION: S/p Bilateral thoracentesis, CXR much improved; repeat thoracentesis R side 06/03 Now on NRBM Seen by CTS re : Pleurex Will continue diuresis Agree with broad-spectrum antibiotics. Michelet Hernandez Omar Syed MD Jun 05, 2020 12:01
--- NOTE | 2020-06-05 12:21 | Nephrology Progress Note ---
Assessment/Plan Problem List: (1) ASHLEY (acute kidney injury) (2) Bilateral pleural effusion (3) Leukemia Assessment Imp: Acute renal failure, with sudden jump in serum creatinine to 2.7 History of leukemia Hypertension, now hypotensive Hyponatremia on admission, improved Bilateral pleural effusion. Status post paracentesis. Elevated troponin, most likely leak. Plan June 05: Electrolytes now normalized. Discussed with RN. Patient due for VATS surgery early next week. Continue current pulmonary support and monitor renal parameters. June 04: Potassium low. Creatinine higher. Will discontinue IV Lasix as the patient already on metolazone. Potassium supplement ordered. 250 mL of 3% saline ordered. Continue to monitor electrolytes and renal parameters. Continue per consultants. June 03: Discussed with Dr. Olson. Patient's pleural effusions continue to be a challenge. Patient on diuretics. Will watch renal parameters and electrolytes. Patient was already tapped twice. Continue per current management. June 02: No chemistry panel done today. Status unchanged. Remains on nonrebreathing mask. Will check lab tomorrow. Continue per pulmonary. June 01: Labs reviewed. Status unchanged. Remains on nonrebreathing mask. Will increase his Lasix to 40 twice daily. Stable electrolytes and renal p arameters at this time. May 31: No chemistry panel done today. Patient still on nonrebreathing mask. Patient full code. Will check lab tomorrow. Patient's main issue is respiratory. May 30: Labs reviewed. Renal parameters stable. Continue per pulmonary. May 29: No chemistry panel done today. Remains on nonrebreather mask. Will order labs tomorrow. Continue per consultants. May 28: Serum creatinine up to 1.5. Remains on nonrebreather mask. Since admission had 3 thoracenteses for pleural effusion over the left and right. Respiratory status remains unstable. Continue per pulmonary. Will watch renal parameters. May 27: When seen the patient was on 100% nonrebreather mask. Renal panel within normal limit. Continue per consultants. Main problem remains respiratory. May 26: Renal parameters stable. Started on Lasix 40 mg daily. Continue to monitor renal parameters and electrolytes. Continue per consultants. May 25: Renal parameters within normal limit. Another dose of IV Lasix given. Continue to monitor electrolytes. Continue per consultants. May 24: Renal parameters normalized. Will give the Lasix 40 mg IV once. 1 dose of Kayexalate for hyperkalemia. Continue to monitor renal parameters. Previously: Today renal parameters are improved. Serum creatinine down to 1.6 from 2.7 Continue to hold lisinopril Continue to hold Lasix Half Normal saline 100 cc an hour one liter only was given yesterday Albumin bolus given yesterday, repeat as needed Monitor renal parameters Avoid nephrotoxic's Subjective ROS Limited/Unobtainable: No Constitutional: Reports: malaise, weakness Objective Objective Last 24 Hour Vital Signs Date Time Temp Pulse Resp B/P (MAP) Pulse Ox O2 Delivery O2 Flow Rate FiO2 06/05/20 11:55 15.0 06/05/20 11:53 Non-Rebreather 15.0 06/05/20 08:00 96.3 99 20 98/64 (75) 99 06/05/20 08:00 Non-Rebreather 15.0 06/05/20 08:00 15.0 06/05/20 07:46 102 06/05/20 04:00 99 06/05/20 04:00 Non-Rebreather 15.0 06/05/20 04:00 98.0 91 24 109/56 (73) 99 06/05/20 04:00 15.0 06/05/20 00:00 96 06/05/20 00:00 15.0 06/05/20 00:00 97.7 91 24 111/60 (77) 94 06/05/20 00:00 Non-Rebreather 15.0 06/04/20 20:00 Non-Rebreather 15.0 06/04/20 20:00 98.0 99 24 109/56 (73) 99 06/04/20 20:00 15.0 06/04/20 19:32 98 06/04/20 18:49 97 Non-Rebreather 15.0 100 06/04/20 16:00 95 06/04/20 16:00 15.0 06/04/20 16:00 Non-Rebreather 15.0 06/04/20 16:00 97.7 93 20 99/63 (75) 98 Intake and Output 06/04/20 06/05/20 19:00 07:00 Intake Total 470 ml 280 ml Output Total 1100 ml 500 ml Balance -630 ml -220 ml Intake Oral 440 ml IV Total 30 ml 280 ml Output Urine Total 1100 ml 500 ml # Bowel Movements 1 Laboratory Tests 06/05/20 03:15: White Blood Count 13.6H, Red Blood Count 4.34, Hemoglobin 12.4, Hematocrit 36.6L , Mean Corpuscular Volume 84, Mean Corpuscular Hemoglobin 28.5, Mean Corpuscular Hemoglobin Concent 33.8, Red Cell Distribution Width 13.7, Platelet Count 431, Mean Platelet Volume 6.0L, Neutrophils (%) (Auto) , Lymphocytes (%) (Auto) , M onocytes (%) (Auto) , Eosinophils (%) (Auto) , Basophils (%) (Auto) , Differential Total Cells Counted 100, Neutrophils % (Manual) 96H, Lymphocytes % (Manual) 4L, Monocytes % (Manual) 0L, Eosinophils % (Manual) 0, Basophils % (Manual) 0, Band Neutrophils 0, Platelet Estimate Adequate, Platelet Morphology Normal, Red Blood Cell Morphology Normal, Sodium Level 136, Potassium Level 4.0, Chloride Level 100, Carbon Dioxide Level 32, Blood Urea Nitrogen 63H, Creatinine 1.2, Estimat Glomerular Filtration Rate 45.7, Glucose Level 233#H, Calcium Level 8.0L, Phosphorus Level 2.8, Magnesium Level 2.1, Total Bilirubin 0.3, Aspartate Amino Transf (AST/SGOT) 22, Alanine Aminotransferase (ALT/SGPT) 10L, Alkaline Phosphatase 57, C-Reactive Protein, Quantitative 15.6H, Pro-B-Type Natriuretic Peptide 9716H, Total Protein 5.3L, Albumin 1.8L, Globulin 3.5, Albumin/Globulin Ratio 0.5L 06/05/20 06:38: POC Whole Blood Glucose [Pending] 06/05/20 11:51: POC Whole Blood Glucose 103 Height (Feet): 5 Height (Inches): 0.00 Weight (Pounds): 100 General Appearance: lethargic EENT: other - On nonrebreather mask Cardiovascular: tachycardia Respiratory/Chest: decreased breath sounds Abdomen: distended Montrell Carpio MD Jun 05, 2020 12:21
--- NOTE | 2020-06-05 12:45 | Consultation ---
DATE OF CONSULTATION: 06/05/2020 CONSULTING PHYSICIAN/SURGEON: Myron Joseph MD. Specialty is Thoracic Surgery REFERRING PHYSICIAN: Micah Olson MD. HISTORY OF PRESENT ILLNESS: The patient is a 60-year-old female, who presented to [facility] with bilateral pleural effusion and shortness of breath. She has underwent multiple bilateral thoracenteses and Thoracic Surgery was then consulted for further evaluation. PAST MEDICAL HISTORY: Notable for: 1. Leukemia. 2. Iron deficiency anemia. 3. Hypertension. 4. Hyperlipidemia. PAST SURGICAL HISTORY: . MEDICATIONS: Reviewed. ALLERGIES: The patient has no known drug allergies. FAMILY HISTORY: Noncontributory. SOCIAL HISTORY: Noncontributory. PHYSICAL EXAMINATION: VITAL SIGNS: She is noted to be afebrile. Her vitals are within normal limits. CARDIAC: Regular rate and rhythm. No gallops or murmurs. RESPIRATORY: Bilateral crackles are noted. The patient is on a non-rebreather, saturating 95% to 96%. ABDOMEN: Soft, nondistended, nontender with normoactive bowel sounds. EXTREMITIES: Showed no evidence of cyanosis, clubbing, or edema. LABORATORY AND DIAGNOSTIC DATA: Laboratory studies performed on June 05, 2020 showed WBC of 13.6, hemoglobin of 12, hematocrit of 37, and a platelet count of 431. Sodium is 136, potassium is 4.0, chloride is 100, bicarb is 32, BUN is 63, creatinine is 1.2, and glucose is 233. A chest CT scan was performed on June 04, 2020, which demonstrated bilateral pleural effusion with bilateral ground-glass opacification. ASSESSMENT/PLAN: This is a 60-year-old female, who presented with recurrent bilateral pleural effusion of unknown etiology. The patient was evaluated at bedside. After reviewing her clinical database, I recommend she undergo a left video-assisted thoracoscopic surgery with pleural and lung biopsy. In addition, the bilateral PleurX catheter will be placed for decompression. I want to thank you for referring this patient to my attention. If you have any questions in regard to this patient's clinical care, please do not hesitate to contact me. Alvarez M.D. DR: LOLITA JOB#: [id number] CC: SINA
[2020-06-05 16:00] VITALS: BP 98/68
--- NOTE | 2020-06-05 16:58 | Cardiac Electrophysiology PN ---
Assessment/Plan Assessment/Plan 1. Hypertension. Now off Lisinopril for acute renal failure On Lasix 40 po bid and prn Clonidine 2. Troponin leak. No CP, ECG non ischemic and likely due to renal failure 3. Bilateral pleural effusions. S/P Right side thoracentesis x 2. FU by Dr. Olson. S/P Left thoracentesis again x2 last one 05/29/20. Now on NRB FM VATS on Monday by Dr Joseph pending 4. Hyponatremia. 5. CML x 5 years, sees oncologist in [facility] area DCed desatanib (also is the likely cause of pleural effusions) Per Dr Dolan 6. Acute renal failure with sudden JUMP in creatinine to 2.7. FU Dr Carpio. Better after iv fluid, Albumin and off Lisinopril. Cr now 1.0 DW RN Subjective Subjective S/P 2 Right sided thoracentesis ( 1.2 liters of serosanguineous fluid ) on 05/21/20 and 05/26/20 S/P 2 Left thoracentesis last one 05/29/20 On Face Mask today. No CP Scheduled for VATS on Monday by Dr Joseph Objective Last 24 Hour Vital Signs Date Time Temp Pulse Resp B/P (MAP) Pulse Ox O2 Delivery O2 Flow Rate FiO2 06/05/20 12:00 97.5 92 20 95/57 (70) 99 06/05/20 11:55 15.0 06/05/20 11:53 Non-Rebreather 15.0 06/05/20 11:41 93 06/05/20 08:00 96.3 99 20 98/64 (75) 99 06/05/20 08:00 Non-Rebreather 15.0 06/05/20 08:00 15.0 06/05/20 07:46 102 06/05/20 04:00 99 06/05/20 04:00 Non-Rebreather 15.0 06/05/20 04:00 98.0 91 24 109/56 (73) 99 06/05/20 04:00 15.0 06/05/20 00:00 96 06/05/20 00:00 15.0 06/05/20 00:00 97.7 91 24 111/60 (77) 94 06/05/20 00:00 Non-Rebreather 15.0 06/04/20 20:00 Non-Rebreather 15.0 06/04/20 20:00 98.0 99 24 109/56 (73) 99 06/04/20 20:00 15.0 06/04/20 19:32 98 06/04/20 18:49 97 Non-Rebreather 15.0 100 Intake and Output 06/04/20 06/05/20 19:00 07:00 Intake Total 470 ml 280 ml Output Total 1100 ml 500 ml Balance -630 ml -220 ml Intake Oral 440 ml IV Total 30 ml 280 ml Output Urine Total 1100 ml 500 ml # Bowel Movements 1 Laboratory Tests Test 06/05/20 03:15 06/05/20 06:38 06/05/20 11:51 White Blood Count 13.6 K/UL (4.8-10.8) H Red Blood Count 4.34 M/UL (4.20-5.40) Hemoglobin 12.4 G/DL (12.0-16.0) Hematocrit 36.6 % (37.0-47.0) L Mean Corpuscular Volume 84 FL (80-99) Mean Corpuscular Hemoglobin 28.5 PG (27.0-31.0) Mean Corpuscular Hemoglobin Concent 33.8 G/DL (32.0-36.0) Red Cell Distribution Width 13.7 % (11.6-14.8) Platelet Count 431 K/UL (150-450) Mean Platelet Volume 6.0 FL (6.5-10.1) L Neutrophils (%) (Auto) % (45.0-75.0) Lymphocytes (%) (Auto) % (20.0-45.0) Monocytes (%) (Auto) % (1.0-10.0) Eosinophils (%) (Auto) % (0.0-3.0) Basophils (%) (Auto) % (0.0-2.0) Differential Total Cells Counted 100 Neutrophils % (Manual) 96 % (45-75) H Lymphocytes % (Manual) 4 % (20-45) L Monocytes % (Manual) 0 % (1-10) L Eosinophils % (Manual) 0 % (0-3) Basophils % (Manual) 0 % (0-2) Band Neutrophils 0 % (0-8) Platelet Estimate Adequate Platelet Morphology Normal Red Blood Cell Morphology Normal Sodium Level 136 MMOL/L (136-145) Potassium Level 4.0 MMOL/L (3.5-5.1) Chloride Level 100 MMOL/L (98-107) Carbon Dioxide Level 32 MMOL/L (21-32) Blood Urea Nitrogen 63 mg/dL (7-18) H Creatinine 1.2 MG/DL (0.55-1.30) Estimat Glomerular Filtration Rate 45.7 mL/min (>60) Glucose Level 233 MG/DL (74-106) #H Calcium Level 8.0 MG/DL (8.5-10.1) L Phosphorus Level 2.8 MG/DL (2.5-4.9) Magnesium Level 2.1 MG/DL (1.8-2.4) Total Bilirubin 0.3 MG/DL (0.2-1.0) Aspartate Amino Transf (AST/SGOT) 22 U/L (15-37) Alanine Aminotransferase (ALT/SGPT) 10 U/L (12-78) L Alkaline Phosphatase 57 U/L (46-116) C-Reactive Protein, Quantitative 15.6 mg/dL (0.00-0.90) H Pro-B-Type Natriuretic Peptide 9716 pg/mL (0-125) H Total Protein 5.3 G/DL (6.4-8.2) L Albumin 1.8 G/DL (3.4-5.0) L Globulin 3.5 g/dL Albumin/Globulin Ratio 0.5 (1.0-2.7) L POC Whole Blood Glucose Pending 103 MG/DL (74-106) Objective HEAD AND NECK: No JVD. On Venturi Mask LUNGS: Decreased breath sounds. CARDIOVASCULAR: Regular S1 and S2 and tachycardic. ABDOMEN: Soft. EXTREMITIES: No pitting edema. Cristian England MD Jun 05, 2020 16:58
[2020-06-05 20:00] VITALS: BP 95/62
--- NOTE | 2020-06-05 21:43 | General Progress Note ---
Subjective ROS Limited/Unobtainable: Yes Allergies: Coded Allergies: No Known Allergies (Unverified , 05/19/20) Objective Last 24 Hour Vital Signs Date Time Temp Pulse Resp B/P (MAP) Pulse Ox O2 Delivery O2 Flow Rate FiO2 06/05/20 20:00 97.9 96 22 95/62 (73) 98 06/05/20 20:00 15.0 06/05/20 20:00 Non-Rebreather 15.0 06/05/20 19:23 94 06/05/20 18:55 96 Non-Rebreather 15.0 100 06/05/20 16:00 92 06/05/20 16:00 15.0 06/05/20 16:00 Non-Rebreather 15.0 06/05/20 16:00 97.5 94 20 98/68 (78) 97 06/05/20 12:00 97.5 92 20 95/57 (70) 99 06/05/20 11:55 15.0 06/05/20 11:53 Non-Rebreather 15.0 06/05/20 11:41 93 06/05/20 08:00 96.3 99 20 98/64 (75) 99 06/05/20 08:00 Non-Rebreather 15.0 06/05/20 08:00 15.0 06/05/20 07:46 102 06/05/20 04:00 99 06/05/20 04:00 Non-Rebreather 15.0 06/05/20 04:00 98.0 91 24 109/56 (73) 99 06/05/20 04:00 15.0 06/05/20 00:00 96 06/05/20 00:00 15.0 06/05/20 00:00 97.7 91 24 111/60 (77) 94 06/05/20 00:00 Non-Rebreather 15.0 Intake and Output 06/04/20 06/05/20 19:00 07:00 Intake Total 470 ml 280 ml Output Total 1100 ml 500 ml Balance -630 ml -220 ml Intake Oral 440 ml IV Total 30 ml 280 ml Output Urine Total 1100 ml 500 ml # Bowel Movements 1 Laboratory Tests 06/05/20 03:15: White Blood Count 13.6H, Red Blood Count 4.34, Hemoglobin 12.4, Hematocrit 36.6L , Mean Corpuscular Volume 84, Mean Corpuscular Hemoglobin 28.5, Mean Corpuscular Hemoglobin Concent 33.8, Red Cell Distribution Width 13.7, Platelet Count 431, Mean Platelet Volume 6.0L, Neutrophils (%) (Auto) , Lymphocytes (%) (Auto) , Monocytes (%) (Auto) , Eosinophils (%) (Auto) , Basophils (%) (Auto) , Differential Total Cells Counted 100, Neutrophils % (Manual) 96H, Lymphocytes % (Manual) 4L, Monocytes % (Manual) 0L, Eosinophils % (Manual) 0, Basophils % (Manual) 0, Band Neutrophils 0, Platelet Estimate Adequate, Platelet Morphology Normal, Red Blood Cell Morphology Normal, Sodium Level 136, Potassium Level 4.0, Chloride Level 100, Carbon Dioxide Level 32, Blood Urea Nitrogen 63H, Creatinine 1.2, Estimat Glomerular Filtration Rate 45.7, Glucose Level 233#H, Calcium Level 8.0L, Phosphorus Level 2.8, Magnesium Level 2.1, Total Bilirubin 0.3, Aspartate Amino Transf (AST/SGOT) 22, Alanine Aminotransferase (ALT/SGPT) 10L, Alkaline Phosphatase 57, C-Reactive Protein, Quantitative 15.6H, Pro-B-Type Natriuretic Peptide 9716H, Total Protein 5.3L, Albumin 1.8L, Globulin 3.5, Albumin/Globulin Ratio 0.5L 06/05/20 06:38: POC Whole Blood Glucose [Pending] 06/05/20 11:51: POC Whole Blood Glucose 103 06/05/20 17:32: POC Whole Blood Glucose 142H 06/05/20 20:09: POC Whole Blood Glucose [Pending] Height (Feet): 5 Height (Inches): 0.00 Weight (Pounds): 100 Respiratory/Chest: crackles/rales Assessment/Plan Problem List: (1) Leukemia ICD Codes: C95.90 - Leukemia, unspecified not having achieved remission SNOMED: 52258515 (2) Bilateral pleural effusion ICD Codes: J90 - Pleural effusion, not elsewhere classified SNOMED: 882618060 Status: progressing Assessment/Plan: pleural effusion s/p thoracocentesis resp insuff needs bipap prn not improving leukemia Tiara Jara MD Jun 05, 2020 21:43
--- NOTE | 2020-06-05 21:46 | General Progress Note ---
Subjective ROS Limited/Unobtainable: No Allergies: Coded Allergies: No Known Allergies (Unverified , 05/19/20) Subjective above noted Tolerating PO (+) BM Objective Last 24 Hour Vital Signs Date Time Temp Pulse Resp B/P (MAP) Pulse Ox O2 Delivery O2 Flow Rate FiO2 06/05/20 20:00 97.9 96 22 95/62 (73) 98 06/05/20 20:00 15.0 06/05/20 20:00 Non-Rebreather 15.0 06/05/20 19:23 94 06/05/20 18:55 96 Non-Rebreather 15.0 100 06/05/20 16:00 92 06/05/20 16:00 15.0 06/05/20 16:00 Non-Rebreather 15.0 06/05/20 16:00 97.5 94 20 98/68 (78) 97 06/05/20 12:00 97.5 92 20 95/57 (70) 99 06/05/20 11:55 15.0 06/05/20 11:53 Non-Rebreather 15.0 06/05/20 11:41 93 06/05/20 08:00 96.3 99 20 98/64 (75) 99 06/05/20 08:00 Non-Rebreather 15.0 06/05/20 08:00 15.0 06/05/20 07:46 102 06/05/20 04:00 99 06/05/20 04:00 Non-Rebreather 15.0 06/05/20 04:00 98.0 91 24 109/56 (73) 99 06/05/20 04:00 15.0 06/05/20 00:00 96 06/05/20 00:00 15.0 06/05/20 00:00 97.7 91 24 111/60 (77) 94 06/05/20 00:00 Non-Rebreather 15.0 Intake and Output 06/04/20 06/05/20 19:00 07:00 Intake Total 470 ml 280 ml Output Total 1100 ml 500 ml Balance -630 ml -220 ml Intake Oral 440 ml IV Total 30 ml 280 ml Output Urine Total 1100 ml 500 ml # Bowel Movements 1 Laboratory Tests 06/05/20 03:15: White Blood Count 13.6H, Red Blood Count 4.34, Hemoglobin 12.4, Hematocrit 36.6L , Mean Corpuscular Volume 84, Mean Corpuscular Hemoglobin 28.5, Mean Corpuscular Hemoglobin Concent 33.8, Red Cell Distribution Width 13.7, Platelet Count 431, Mean Platelet Volume 6.0L, Neutrophils (%) (Auto) , Lymphocytes (%) (Auto) , Monocytes (%) (Auto) , Eosinophils (%) (Auto) , Basophils (%) (Auto) , Differential Total Cells Counted 100, Neutrophils % (Manual) 96H, Lymphocytes % (Manual) 4L, Monocytes % (Manual) 0L, Eosinophils % (Manual) 0, Basophils % (Manual) 0, Band Neutrophils 0, Platelet Estimate Adequate, Platelet Morphology Normal, Red Blood Cell Morphology Normal, Sodium Level 136, Potassium Level 4.0, Chloride Level 100, Carbon Dioxide Level 32, Blood Urea Nitrogen 63H, Creatinine 1.2, Estimat Glomerular Filtration Rate 45.7, Glucose Level 233#H, Calcium Level 8.0L, Phosphorus Level 2.8, Magnesium Level 2.1, Total Bilirubin 0.3, Aspartate Amino Transf (AST/SGOT) 22, Alanine Aminotransferase (ALT/SGPT) 10L, Alkaline Phosphatase 57, C-Reactive Protein, Quantitative 15.6H, Pro-B-Type Natriuretic Peptide 9716H, Total Protein 5.3L, Albumin 1.8L, Globulin 3.5, Albumin/Globulin Ratio 0.5L 06/05/20 06:38: POC Whole Blood Glucose [Pending] 06/05/20 11:51: POC Whole Blood Glucose 103 06/05/20 17:32: POC Whole Blood Glucose 142H 06/05/20 20:09: POC Whole Blood Glucose [Pending] Height (Feet): 5 Height (Inches): 0.00 Weight (Pounds): 100 Objective NCAT supple Coarse BS RR abd soft no edema Assessment/Plan Status: progressing Assessment/Plan: Assessment - Respiratory failure - pleural effusions, s/p thoracentesis - Renal failure - Elevated troponin - HTN - CML Recommendations - Pulmonary management - aspiration precautions - follow labs and exam Antonio Ratliff MD Jun 05, 2020 21:46
[2020-06-06] VITALS: BP 100/64
[2020-06-06 04:00] VITALS: BP 107/68
[2020-06-06 04:46] LABS: HEMATOCRIT 37.3 % (37.0-47.0); HEMOGLOBIN 12.5 G/DL (12.0-16.0); MEAN CORPUSCULAR VOLUME 85 FL (80-99); PLATELET COUNT 401 K/UL (150-450); RED BLOOD COUNT 4.37 M/UL (4.20-5.40); RED CELL DISTRIBUTION WIDTH 13.9 % (11.6-14.8); WHITE BLOOD COUNT 14.7 K/UL (4.8-10.8)
[2020-06-06 05:09] LABS: ALBUMIN 1.9 G/DL (3.4-5.0); ALBUMIN/GLOBULIN RATIO 0.5 (1.0-2.7); BILIRUBIN,TOTAL 0.2 MG/DL (0.2-1.0); CALCIUM 8.4 MG/DL (8.5-10.1); POTASSIUM 3.8 MMOL/L (3.5-5.1)
[2020-06-06] MEDS: NovoLOG Insulin Flexpen SUBQ SCH ×7 (05:25→20:01)
[2020-06-06 08:00] VITALS: BP 103/62
--- NOTE | 2020-06-06 08:03 | Hematology/Onc Progress Note ---
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, sees oncologist in [facility] --> at this time STOP desatanib (also is the likely cause of pleural effusions) --> no is s/p thora per pulm/cards --> 06/04 started low dose dexamethasone for immune response suppression --> wbc trend 18->7->10--> 14.7 --> hgb 11.5->12->13--> 12.5 --> ABX ceftriaxone-->off --> bipap, thora prn, may need ct tube --> needs molecular and cytogenectic response for CML, f/u oncologist outpatient # Bilateral pleural effusion --> as per pulm, is on bipap --> thora as needed --> repeat thora prn 05/29 # HTN --> controlled --> hydralazine and lisinopril --> sbp goal <140 # Dehydration --> goal of euvolemia # Elevated ddimer --> duplex lower ext r/o dvt==>negative # Dvt ppx lovenox sq Appreciate consultation and dw RN Subjective Allergies: Coded Allergies: No Known Allergies (Unverified , 05/19/20) Subjective Subjective 05/21 labs are noted, no bleeding, with pleural effusions due to desatanbib, s/p thora 05/22 labs are noted, no bleeding, on bipap, i dw her today to stop her med at once 05/24 wbc is improved, continue on ctx for one more day per id, bipap 05/26 have ordered for repeat cxr this am to reeval pleural effusions, labs noted 05/27 with b/l pleural effusions, aware from pulm, thora prn 05/28 has been refusing scds, thus will start lovenox today, breathing better s/p thora 05/29 with nonrebreather, for thora today, no night sweats, meds noted 05/31 remains on bipap, meds reviewed, off desatanib, worse effusion r>l 06/01 on bipap this am, labs pending for am 06/02 unable to wean off facemask, requiring it, will dw sister today 06/03 labs reviewed, meds noted, continues to be bipap support 06/04 no aspiration, is comfortable, meds reviewed, no bleeding 06/05 dw pulm yes, may need ct surg eval, chest tube, started steriods 06/06: labs reviewed no acute events overnight. Objective Objective Current Medications Medications (Trade) Dose Ordered Sig/Jennie Route PRN Reason Start Time Stop Time Status Last Admin Dose Admin Acetaminophen (Tylenol) 500 mg Q6H PRN ORAL Mild Pain (Pain Scale 1-3) 05/19/20 16:45 06/18/20 16:44 Clonidine HCl (Catapres Tab) 0.1 mg Q4H PRN ORAL SBP > 170 05/24/20 13:15 08/22/20 13:14 Dexamethasone (Decadron) 4 mg DAILY ORAL 06/04/20 15:30 06/14/20 15:29 06/05/20 09:14 Dextrose (Dextrose 50%) 25 ml Q30M PRN IV Hypoglycemia 06/05/20 06:30 09/03/20 06:29 Dextrose (Dextrose 50%) 50 ml Q30M PRN IV Hypoglycemia 06/05/20 06:30 09/03/20 06:29 Docusate Sodium (Colace) 100 mg TWICE A DAY ORAL 05/22/20 18:00 06/21/20 17:59 06/05/20 09:11 Enoxaparin Sodium (Lovenox) 40 mg DAILY SUBQ 06/02/20 09:00 08/31/20 08:59 06/05/20 09:11 Insulin Aspart (NovoLOG) BEFORE MEALS AND HS SUBQ 06/05/20 06:30 09/03/20 06:29 06/05/20 06:41 Insulin Aspart (NovoLOG) 4 units NOVOTIAC SUBQ 06/05/20 06:30 09/03/20 06:29 06/05/20 18:07 Insulin Detemir (Levemir) 12 units DAILY SUBQ 06/05/20 09:00 09/03/20 08:59 06/05/20 09:13 Levofloxacin (Levaquin) 250 mg DAILY ORAL 06/02/20 09:00 06/09/20 08:59 06/05/20 09:14 Metolazone (Zaroxolyn) 5 mg DAILY ORAL 06/01/20 12:00 07/01/20 11:59 06/05/20 09:14 Mirtazapine (Remeron) 7.5 mg BEDTIME ORAL 06/02/20 21:00 08/31/20 20:59 06/05/20 20:52 Pantoprazole (Protonix) 40 mg Q12HR ORAL 05/22/20 21:00 06/21/20 20:59 06/05/20 20:52 Last 24 Hour Vital Signs Date Time Temp Pulse Resp B/P (MAP) Pulse Ox O2 Delivery O2 Flow Rate FiO2 06/06/20 04:00 97.4 91 24 107/68 (81) 97 06/06/20 04:00 15.0 06/06/20 04:00 Non-Rebreather 15.0 06/06/20 03:54 91 06/06/20 00:00 15.0 06/06/20 00:00 97.5 86 22 100/64 (76) 98 06/06/20 00:00 Non-Rebreather 15.0 06/05/20 23:57 88 06/05/20 20:00 97.9 96 22 95/62 (73) 98 06/05/20 20:00 15.0 06/05/20 20:00 Non-Rebreather 15.0 06/05/20 19:23 94 06/05/20 18:55 96 Non-Rebreather 15.0 100 06/05/20 16:00 92 06/05/20 16:00 15.0 06/05/20 16:00 Non-Rebreather 15.0 06/05/20 16:00 97.5 94 20 98/68 (78) 97 06/05/20 12:00 97.5 92 20 95/57 (70) 99 06/05/20 11:55 15.0 06/05/20 11:53 Non-Rebreather 15.0 06/05/20 11:41 93 06/05/20 08:00 96.3 99 20 98/64 (75) 99 06/05/20 08:00 Non-Rebreather 15.0 06/05/20 08:00 15.0 06/05/20 07:46 102 06/05/20 04:00 99 06/05/20 04:00 Non-Rebreather 15.0 06/05/20 04:00 98.0 91 24 109/56 (73) 99 06/05/20 04:00 15.0 06/05/20 00:00 96 06/05/20 00:00 15.0 06/05/20 00:00 97.7 91 24 111/60 (77) 94 06/05/20 00:00 Non-Rebreather 15.0 06/04/20 20:00 Non-Rebreather 15.0 06/04/20 20:00 98.0 99 24 109/56 (73) 99 06/04/20 20:00 15.0 06/04/20 19:32 98 06/04/20 18:49 97 Non-Rebreather 15.0 100 06/04/20 16:00 95 06/04/20 16:00 15.0 06/04/20 16:00 Non-Rebreather 15.0 06/04/20 16:00 97.7 93 20 99/63 (75) 98 06/04/20 12:00 98.0 100 20 97/67 (77) 100 06/04/20 12:00 15.0 06/04/20 12:00 Non-Rebreather 15.0 06/04/20 11:36 92 Intake and Output 06/05/20 06/06/20 19:00 07:00 Intake Total 450 ml Output Total 600 ml 400 ml Balance -150 ml -400 ml Intake Oral 450 ml Output Urine Total 600 ml 400 ml # Bowel Movements 1 Labs Test 06/03/20 08:12 06/04/20 09:40 06/05/20 03:15 06/05/20 06:38 Arterial Blood pH 7.423 (7.350-7.450) Arterial Blood Partial Pressure CO2 53.9 mmHg (35.0-45.0) Arterial Blood Partial Pressure O2 52.4 mmHg (75.0-100.0) Arterial Blood HCO3 34.4 mmol/L (22.0-26.0) Arterial Blood Oxygen Saturation 86.2 % (95-100) Arterial Blood Base Excess 8.3 (-2-2) Sammy Test Positive White Blood Count 16.8 K/UL (4.8-10.8) 13.6 K/UL (4.8-10.8) Red Blood Count 4.49 M/UL (4.20-5.40) 4.34 M/UL (4.20-5.40) Hemoglobin 12.7 G/DL (12.0-16.0) 12.4 G/DL (12.0-16.0) Hematocrit 37.9 % (37.0-47.0) 36.6 % (37.0-47.0) Mean Corpuscular Volume 85 FL (80-99) 84 FL (80-99) Mean Corpuscular Hemoglobin 28.3 PG (27.0-31.0) 28.5 PG (27.0-31.0) Mean Corpuscular Hemoglobin Concent 33.5 G/DL (32.0-36.0) 33.8 G/DL (32.0-36.0) Red Cell Distribution Width 13.9 % (11.6-14.8) 13.7 % (11.6-14.8) Platelet Count 399 K/UL (150-450) 431 K/UL (150-450) Mean Platelet Volume 6.1 FL (6.5-10.1) 6.0 FL (6.5-10.1) Neutrophils (%) (Auto) % (45.0-75.0) % (45.0-75.0) Lymphocytes (%) (Auto) % (20.0-45.0) % (20.0-45.0) Monocytes (%) (Auto) % (1.0-10.0) % (1.0-10.0) Eosinophils (%) (Auto) % (0.0-3.0) % (0.0-3.0) Basophils (%) (Auto) % (0.0-2.0) % (0.0-2.0) Differential Total Cells Counted 100 100 Neutrophils % (Manual) 95 % (45-75) 96 % (45-75) Lymphocytes % (Manual) 3 % (20-45) 4 % (20-45) Monocytes % (Manual) 2 % (1-10) 0 % (1-10) Eosinophils % (Manual) 0 % (0-3) 0 % (0-3) Basophils % (Manual) 0 % (0-2) 0 % (0-2) Band Neutrophils 0 % (0-8) 0 % (0-8) Platelet Estimate Adequate Adequate Platelet Morphology Normal Normal Red Blood Cell Morphology Normal Normal Sodium Level 129 MMOL/L (136-145) 136 MMOL/L (136-145) Potassium Level 2.7 MMOL/L (3.5-5.1) 4.0 MMOL/L (3.5-5.1) Chloride Level 93 MMOL/L (98-107) 100 MMOL/L (98-107) Carbon Dioxide Level 34 MMOL/L (21-32) 32 MMOL/L (21-32) Anion Gap -1 mmol/L (5-15) Blood Urea Nitrogen 79 mg/dL (7-18) 63 mg/dL (7-18) Creatinine 1.8 MG/DL (0.55-1.30) 1.2 MG/DL (0.55-1.30) Estimat Glomerular Filtration Rate 28.6 mL/min (>60) 45.7 mL/min (>60) Glucose Level 349 MG/DL (74-106) 233 MG/DL (74-106) Calcium Level 8.6 MG/DL (8.5-10.1) 8.0 MG/DL (8.5-10.1) Phosphorus Level 4.4 MG/DL (2.5-4.9) 2.8 MG/DL (2.5-4.9) Magnesium Level 2.1 MG/DL (1.8-2.4) 2.1 MG/DL (1.8-2.4) Total Bilirubin 0.3 MG/DL (0.2-1.0) 0.3 MG/DL (0.2-1.0) Aspartate Amino Transf (AST/SGOT) 26 U/L (15-37) 22 U/L (15-37) Alanine Aminotransferase (ALT/SGPT) 18 U/L (12-78) 10 U/L (12-78) Alkaline Phosphatase 61 U/L (46-116) 57 U/L (46-116) C-Reactive Protein, Quantitative 21.5 mg/dL (0.00-0.90) 15.6 mg/dL (0.00-0.90) Total Protein 5.5 G/DL (6.4-8.2) 5.3 G/DL (6.4-8.2) Albumin 1.9 G/DL (3.4-5.0) 1.8 G/DL (3.4-5.0) Globulin 3.6 g/dL 3.5 g/dL Albumin/Globulin Ratio 0.5 (1.0-2.7) 0.5 (1.0-2.7) Pro-B-Type Natriuretic Peptide 9716 pg/mL (0-125) Test 06/05/20 11:51 06/05/20 17:32 06/05/20 20:09 06/06/20 03:00 POC Whole Blood Glucose 103 MG/DL (74-106) 142 MG/DL (74-106) White Blood Count 14.7 K/UL (4.8-10.8) Red Blood Count 4.37 M/UL (4.20-5.40) Hemoglobin 12.5 G/DL (12.0-16.0) Hematocrit 37.3 % (37.0-47.0) Mean Corpuscular Volume 85 FL (80-99) Mean Corpuscular Hemoglobin 28.6 PG (27.0-31.0) Mean Corpuscular Hemoglobin Concent 33.5 G/DL (32.0-36.0) Red Cell Distribution Width 13.9 % (11.6-14.8) Platelet Count 401 K/UL (150-450) Mean Platelet Volume 5.9 FL (6.5-10.1) Neutrophils (%) (Auto) % (45.0-75.0) Lymphocytes (%) (Auto) % (20.0-45.0) Monocytes (%) (Auto) % (1.0-10.0) Eosinophils (%) (Auto) % (0.0-3.0) Basophils (%) (Auto) % (0.0-2.0) Sodium Level 138 MMOL/L (136-145) Potassium Level 3.8 MMOL/L (3.5-5.1) Chloride Level 100 MMOL/L (98-107) Carbon Dioxide Level 32 MMOL/L (21-32) Anion Gap 6 mmol/L (5-15) Blood Urea Nitrogen 51 mg/dL (7-18) Creatinine 1.0 MG/DL (0.55-1.30) Estimat Glomerular Filtration Rate 56.4 mL/min (>60) Glucose Level 77 MG/DL (74-106) Uric Acid 9.6 MG/DL (2.6-7.2) Calcium Level 8.4 MG/DL (8.5-10.1) Phosphorus Level 3.0 MG/DL (2.5-4.9) Magnesium Level 2.3 MG/DL (1.8-2.4) Total Bilirubin 0.2 MG/DL (0.2-1.0) Aspartate Amino Transf (AST/SGOT) 32 U/L (15-37) Alanine Aminotransferase (ALT/SGPT) 10 U/L (12-78) Alkaline Phosphatase 55 U/L (46-116) C-Reactive Protein, Quantitative 5.3 mg/dL (0.00-0.90) Pro-B-Type Natriuretic Peptide 9999 pg/mL (0-125) Total Protein 5.8 G/DL (6.4-8.2) Albumin 1.9 G/DL (3.4-5.0) Globulin 3.9 g/dL Albumin/Globulin Ratio 0.5 (1.0-2.7) Test 06/06/20 05:23 Height (Feet): 5 Height (Inches): 0.00 Weight (Pounds): 100 Objective General Appearance: no apparent distress, Appears chronically ill HEENT: normal pharynx, no angioedema Neck: full range of motion, supple/symm/no masses, Respiratory: chest non-tender, CTA on Non rebreather mask Cardiovascular: regular rate, rhythm, no edema, other - tachy Gastrointestinal: normal bowel sounds, non tender, soft, Rectal: deferred Musculoskeletal: contracted extremities Neurologic: other - Does not move extremities at all Lymphatic: no adenopathy Lisa Love NP Jun 06, 2020 08:03
[2020-06-06] MEDS: Levemir Flexpen SUBQ SCH (09:00)
[2020-06-06] MEDS: Enoxaparin 40mg Inj SUBQ SCH (09:13)
--- NOTE | 2020-06-06 10:58 | Nephrology Progress Note ---
Assessment/Plan Problem List: (1) ASHLEY (acute kidney injury) (2) Bilateral pleural effusion (3) Leukemia Assessment Imp: Acute renal failure, with sudden jump in serum creatinine to 2.7 History of leukemia Hypertension, now hypotensive Hyponatremia on admission, improved Bilateral pleural effusion. Status post paracentesis. Elevated troponin, most likely leak. Plan June 06: Lab reviewed. Abnormal electrolytes addressed. Full code. On nonrebreathing mask. Per pulmonary. Allopurinol added. June 05: Electrolytes now normalized. Discussed with RN. Patient due for VATS surgery early next week. Continue current pulmonary support and monitor renal parameters. June 04: Potassium low. Creatinine higher. Will discontinue IV Lasix as the patient already on metolazone. Potassium supplement ordered. 250 mL of 3% saline ordered. Continue to monitor electrolytes and renal parameters. Continue per consultants. June 03: Discussed with Dr. Olson. Patient's pleural effusions continue to be a challenge. Patient on diuretics. Will watch renal parameters and electrolytes. Patient was already tapped twice. Continue per current management. June 02: No chemistry panel done today. Status unchanged. Remains on nonrebreathing mask. Will check lab tomorrow. Continue per pulmonary. June 01: Labs reviewed. Status unchanged. Remains on nonrebreathing mask. Will increase his Lasix to 40 twice daily. Stable electrolytes and renal parameters at this time. May 31: No chemistry panel done today. Patient still on nonrebreathing mask. Patient full code. Will check lab tomorrow. Patient's main issue is respiratory. May 30: Labs reviewed. Renal parameters stable. Continue per pulmonary. May 29: No chemistry panel done today. Remains on nonrebreather mask. Will order labs tomorrow. Continue per consultants. May 28: Serum creatinine up to 1.5. Remains on nonrebreather mask. Since admission had 3 thoracenteses for pleural effusion over the left and right. Respiratory status remains unstable. Continue per pulmonary. Will watch renal parameters. May 27: When seen the patient was on 100% nonrebreather mask. Renal panel within normal limit. Continue per consultants. Main problem remains respiratory. May 26: Renal parameters stable. Started on Lasix 40 mg daily. Continue to monitor renal parameters and electrolytes. Continue per consultants. May 25: Renal parameters within normal limit. Another dose of IV Lasix given. Continue to monitor electrolytes. Continue per consultants. May 24: Renal parameters normalized. Will give the Lasix 40 mg IV once. 1 dose of Kayexalate for hyperkalemia. Continue to monitor renal parameters. Previously: Today renal parameters are improved. Serum creatinine down to 1.6 from 2.7 Continue to hold lisinopril Continue to hold Lasix Half Normal saline 100 cc an hour one liter only was given yesterday Albumin bolus given yesterday, repeat as needed Monitor renal parameters Avoid nephrotoxic's Subjective ROS Limited/Unobtainable: No Constitutional: Reports: malaise, weakness Objective Objective Last 24 Hour Vital Signs Date Time Temp Pulse Resp B/P (MAP) Pulse Ox O2 Delivery O2 Flow Rate FiO2 06/06/20 09:52 100 32 97 100 06/06/20 09:38 95 Non-Rebreather 15.0 100 06/06/20 08:00 15.0 06/06/20 08:00 96.4 93 24 103/62 (76) 94 06/06/20 08:00 Non-Rebreather 15.0 06/06/20 08:00 102 06/06/20 04:00 97.4 91 24 107/68 (81) 97 06/06/20 04:00 15.0 06/06/20 04:00 Non-Rebreather 15.0 06/06/20 03:54 91 06/06/20 00:00 15.0 06/06/20 00:00 97.5 86 22 100/64 (76) 98 06/06/20 00:00 Non-Rebreather 15.0 06/05/20 23:57 88 06/05/20 20:00 97.9 96 22 95/62 (73) 98 06/05/20 20:00 15.0 06/05/20 20:00 Non-Rebreather 15.0 06/05/20 19:23 94 06/05/20 18:55 96 Non-Rebreather 15.0 100 06/05/20 16:00 92 06/05/20 16:00 15.0 06/05/20 16:00 Non-Rebreather 15.0 06/05/20 16:00 97.5 94 20 98/68 (78) 97 06/05/20 12:00 97.5 92 20 95/57 (70) 99 06/05/20 11:55 15.0 06/05/20 11:53 Non-Rebreather 15.0 06/05/20 11:41 93 Intake and Output 06/05/20 06/06/20 19:00 07:00 Intake Total 450 ml Output Total 600 ml 400 ml Balance -150 ml -400 ml Intake Oral 450 ml Output Urine Total 600 ml 400 ml # Bowel Movements 1 Current Medications Medications (Trade) Dose Ordered Sig/Jennie Route PRN Reason Start Time Stop Time Status Last Admin Dose Admin Acetaminophen (Tylenol) 500 mg Q6H PRN ORAL Mild Pain (Pain Scale 1-3) 05/19/20 16:45 06/18/20 16:44 Clonidine HCl (Catapres Tab) 0.1 mg Q4H PRN ORAL SBP > 170 05/24/20 13:15 08/22/20 13:14 Dexamethasone (Decadron) 4 mg DAILY ORAL 06/04/20 15:30 06/14/20 15:29 06/06/20 09:12 Dextrose (Dextrose 50%) 25 ml Q30M PRN IV Hypoglycemia 06/05/20 06:30 09/03/20 06:29 Dextrose (Dextrose 50%) 50 ml Q30M PRN IV Hypoglycemia 06/05/20 06:30 09/03/20 06:29 Docusate Sodium (Colace) 100 mg TWICE A DAY ORAL 05/22/20 18:00 06/21/20 17:59 06/05/20 09:11 Enoxaparin Sodium (Lovenox) 40 mg DAILY SUBQ 06/02/20 09:00 08/31/20 08:59 06/06/20 09:13 Insulin Aspart (NovoLOG) BEFORE MEALS AND HS SUBQ 06/05/20 06:30 09/03/20 06:29 06/05/20 06:41 Insulin Aspart (NovoLOG) 4 units NOVOTIAC SUBQ 06/05/20 06:30 09/03/20 06:29 06/05/20 18:07 Insulin Detemir (Levemir) 12 units DAILY SUBQ 06/05/20 09:00 09/03/20 08:59 06/05/20 09:13 Levofloxacin (Levaquin) 250 mg DAILY ORAL 06/02/20 09:00 06/09/20 08:59 06/06/20 09:12 Metolazone (Zaroxolyn) 5 mg DAILY ORAL 06/01/20 12:00 07/01/20 11:59 06/06/20 09:12 Mirtazapine (Remeron) 7.5 mg BEDTIME ORAL 06/02/20 21:00 08/31/20 20:59 06/05/20 20:52 Pantoprazole (Protonix) 40 mg Q12HR ORAL 05/22/20 21:00 06/21/20 20:59 06/06/20 09:12 Laboratory Tests 06/05/20 11:51: POC Whole Blood Glucose 103 06/05/20 17:32: POC Whole Blood Glucose 142H 06/05/20 20:09: POC Whole Blood Glucose [Pending] 06/06/20 03:00: White Blood Count 14.7H, Red Blood Count 4.37, Hemoglobin 12.5, Hematocrit 37.3, Mean Corpuscular Volume 85, Mean Corpuscular Hemoglobin 28.6, Mean Corpuscular Hemoglobin Concent 33.5, Red Cell Distribution Width 13.9, Platelet Count 401, Mean Platelet Volume 5.9L, Neutrophils (%) (Auto) , Lymphocytes (%) (Auto) , Monocytes (%) (Auto) , Eosinophils (%) (Auto) , Basophils (%) (Auto) , Differential Total Cells Counted 100, Neutrophils % (Manual) 81H, Lymphocytes % (Manual) 13L, Monocytes % (Manual) 5, Eosinophils % (Manual) 1, Basophils % (Manual) 0, Band Neutrophils 0, Platelet Estimate Adequate, Platelet Morphology Normal, Red Blood Cell Morphology , Polychromasia 1+, Sodium Level 138, P otassium Level 3.8, Chloride Level 100, Carbon Dioxide Level 32, Anion Gap 6, Blood Urea Nitrogen 51H, Creatinine 1.0, Estimat Glomerular Filtration Rate 56.4, Glucose Level 77#, Uric Acid 9.6H, Calcium Level 8.4L, Phosphorus Level 3.0, Magnesium Level 2.3, Total Bilirubin 0.2, Aspartate Amino Transf (AST/SGOT) 32, Alanine Aminotransferase (ALT/SGPT) 10L, Alkaline Phosphatase 55, C- Reactive Protein, Quantitative 5.3H, Pro-B-Type Natriuretic Peptide 9999H, Total Protein 5.8L, Albumin 1.9L, Globulin 3.9, Albumin/Globulin Ratio 0.5L 06/06/20 05:23: POC Whole Blood Glucose [Pending] Height (Feet): 5 Height (Inches): 0.00 Weight (Pounds): 100 General Appearance: mild distress EENT: other - On nonrebreather mask Cardiovascular: tachycardia Respiratory/Chest: decreased breath sounds Abdomen: distended Montrell Carpio MD Jun 06, 2020 10:58
[2020-06-06] MEDS ORDERED: NS 275ml ONE (11:52)
[2020-06-06] MEDS ORDERED: Tubing IV Secondary IV ONE (11:52)
[2020-06-06 12:00] VITALS: BP 133/70
--- NOTE | 2020-06-06 12:25 | General Progress Note ---
Subjective ROS Limited/Unobtainable: Yes Allergies: Coded Allergies: No Known Allergies (Unverified , 05/19/20) Objective Last 24 Hour Vital Signs Date Time Temp Pulse Resp B/P (MAP) Pulse Ox O2 Delivery O2 Flow Rate FiO2 06/06/20 09:52 100 32 97 100 06/06/20 09:38 95 Non-Rebreather 15.0 100 06/06/20 08:00 15.0 06/06/20 08:00 96.4 93 24 103/62 (76) 94 06/06/20 08:00 Non-Rebreather 15.0 06/06/20 08:00 102 06/06/20 04:00 97.4 91 24 107/68 (81) 97 06/06/20 04:00 15.0 06/06/20 04:00 Non-Rebreather 15.0 06/06/20 03:54 91 06/06/20 00:00 15.0 06/06/20 00:00 97.5 86 22 100/64 (76) 98 06/06/20 00:00 Non-Rebreather 15.0 06/05/20 23:57 88 06/05/20 20:00 97.9 96 22 95/62 (73) 98 06/05/20 20:00 15.0 06/05/20 20:00 Non-Rebreather 15.0 06/05/20 19:23 94 06/05/20 18:55 96 Non-Rebreather 15.0 100 06/05/20 16:00 92 06/05/20 16:00 15.0 06/05/20 16:00 Non-Rebreather 15.0 06/05/20 16:00 97.5 94 20 98/68 (78) 97 Intake and Output 06/05/20 06/06/20 19:00 07:00 Intake Total 450 ml Output Total 600 ml 400 ml Balance -150 ml -400 ml Intake Oral 450 ml Output Urine Total 600 ml 400 ml # Bowel Movements 1 Laboratory Tests 06/05/20 17:32: POC Whole Blood Glucose 142H 06/05/20 20:09: POC Whole Blood Glucose [Pending] 06/06/20 03:00: White Blood Count 14.7H, Red Blood Count 4.37, Hemoglobin 12.5, Hematocrit 37.3, Mean Corpuscular Volume 85, Mean Corpuscular Hemoglobin 28.6, Mean Corpuscular Hemoglobin Concent 33.5, Red Cell Distribution Width 13.9, Platelet Count 401, Mean Platelet Volume 5.9L, Neutrophils (%) (Auto) , Lymphocytes (%) (Auto) , Monocytes (%) (Auto) , Eosinophils (%) (Auto) , Basophils (%) (Auto) , Differential Total Cells Counted 100, Neutrophils % (Manual) 81H, Lymphocytes % (Manual) 13L, Monocytes % (Manual) 5, Eosinophils % (Manual) 1, Basophils % (Manual) 0, Band Neutrophils 0, Platelet Estimate Adequate, Platelet Morphology Normal, Red Blood Cell Morphology , Polychromasia 1+, Sodium Level 138, Potassium Level 3.8, Chloride Level 100, Carbon Dioxide Level 32, Anion Gap 6, Blood Urea Nitrogen 51H, Creatinine 1.0, Estimat Glomerular Filtration Rate 56.4, Glucose Level 77#, Uric Acid 9.6H, Calcium Level 8.4L, Phosphorus Level 3.0, Magnesium Level 2.3, Total Bilirubin 0.2, Aspartate Amino Transf (AST/SGOT) 32, Alanine Aminotransferase (ALT/SGPT) 10L, Alkaline Phosphatase 55, C- Reactive Protein, Quantitative 5.3H, Pro-B-Type Natriuretic Peptide 9999H, Total Protein 5.8L, Albumin 1.9L, Globulin 3.9, Albumin/Globulin Ratio 0.5L 06/06/20 05:23: POC Whole Blood Glucose [Pending] 06/06/20 11:34: POC Whole Blood Glucose 157H Height (Feet): 5 Height (Inches): 0.00 Weight (Pounds): 100 Assessment/Plan Problem List: (1) Leukemia ICD Codes: C95.90 - Leukemia, unspecified not having achieved remission SNOMED: 58250092 (2) Bilateral pleural effusion ICD Codes: J90 - Pleural effusion, not elsewhere classified SNOMED: 807091490 Status: progressing Assessment/Plan: pleural effusion resp insuff high oxygen requirement fluid management afebrile leukemia Tiara Jara MD Jun 06, 2020 12:25
--- NOTE | 2020-06-06 14:20 | Pulmonology Progress Note ---
Subjective ROS Limited/Unobtainable: Yes Interval Events: Diuresing well; s/p repeat thoracentesis R side; 1.6L removed Constitutional: Reports: no symptoms, other - feels better HEENT: Repors: no symptoms Respiratory: Reports: dry cough Gastrointestinal/Abdominal: Reports: no symptoms Genitourinary: Reports: no symptoms Neurologic: Reports: no symptoms Musculoskeletal: Denies: pain Allergies: Coded Allergies: No Known Allergies (Unverified , 05/19/20) Objective Last 24 Hour Vital Signs Date Time Temp Pulse Resp B/P (MAP) Pulse Ox O2 Delivery O2 Flow Rate FiO2 06/06/20 12:00 97.0 86 24 133/70 (91) 98 06/06/20 12:00 Bi-pap 15.0 06/06/20 12:00 100 06/06/20 12:00 103 06/06/20 11:57 103 39 98 100 06/06/20 09:52 100 32 97 100 06/06/20 09:38 95 Non-Rebreather 15.0 100 06/06/20 08:00 15.0 06/06/20 08:00 96.4 93 24 103/62 (76) 94 06/06/20 08:00 Non-Rebreather 15.0 06/06/20 08:00 102 06/06/20 04:00 97.4 91 24 107/68 (81) 97 06/06/20 04:00 15.0 06/06/20 04:00 Non-Rebreather 15.0 06/06/20 03:54 91 06/06/20 00:00 15.0 06/06/20 00:00 97.5 86 22 100/64 (76) 98 06/06/20 00:00 Non-Rebreather 15.0 06/05/20 23:57 88 06/05/20 20:00 97.9 96 22 95/62 (73) 98 06/05/20 20:00 15.0 06/05/20 20:00 Non-Rebreather 15.0 06/05/20 19:23 94 06/05/20 18:55 96 Non-Rebreather 15.0 100 06/05/20 16:00 92 06/05/20 16:00 15.0 06/05/20 16:00 Non-Rebreather 15.0 06/05/20 16:00 97.5 94 20 98/68 (78) 97 Intake and Output 06/05/20 06/06/20 19:00 07:00 Intake Total 450 ml Output Total 600 ml 400 ml Balance -150 ml -400 ml Intake Oral 450 ml Output Urine Total 600 ml 400 ml # Bowel Movements 1 General Appearance: no acute distress Respiratory: chest wall non-tender, normal breath sounds, no respiratory distress, no accessory muscle use, decreased breath sounds Cardiovascular: normal peripheral pulses, normal rate Abdomen: normal bowel sounds Extremities: no cyanosis, no clubbing, no edema Laboratory Tests 06/05/20 17:32: POC Whole Blood Glucose 142H 06/05/20 20:09: POC Whole Blood Glucose [Pending] 06/06/20 03:00: White Blood Count 14.7H, Red Blood Count 4.37, Hemoglobin 12.5, Hematocrit 37.3, Mean Corpuscular Volume 85, Mean Corpuscular Hemoglobin 28.6, Mean Corpuscular Hemoglobin Concent 33.5, Red Cell Distribution Width 13.9, Platelet Count 401, Mean Platelet Volume 5.9L, Neutrophils (%) (Auto) , Lymphocytes (%) (Auto) , Monocytes (%) (Auto) , Eosinophils (%) (Auto) , Basophils (%) (Auto) , Differential Total Cells Counted 100, Neutrophils % (Manual) 81H, Lymphocytes % (Manual) 13L, Monocytes % (Manual) 5, Eosinophils % (Manual) 1, Basophils % (Manual) 0, Band Neutrophils 0, Platelet Estimate Adequate, Platelet Morphology Normal, Red Blood Cell Morphology , Polychromasia 1+, Sodium Level 138, Potassium Level 3.8, Chloride Level 100, Carbon Dioxide Level 32, Anion Gap 6, Blood Urea Nitrogen 51H, Creatinine 1.0, Estimat Glomerular Filtration Rate 56.4, Glucose Level 77#, Uric Acid 9.6H, Calcium Level 8.4L, Phosphorus Level 3.0, Magnesium Level 2.3, Total Bilirubin 0.2, Aspartate Amino Transf (AST/SGOT) 32, Alanine Aminotransferase (ALT/SGPT) 10L, Alkaline Phosphatase 55, C- Reactive Protein, Quantitative 5.3H, Pro-B-Type Natriuretic Peptide 9999H, Total Protein 5.8L, Albumin 1.9L, Globulin 3.9, Albumin/Globulin Ratio 0.5L 06/06/20 05:23: POC Whole Blood Glucose [Pending] 06/06/20 11:34: POC Whole Blood Glucose 157H Current Medications Medications (Trade) Dose Ordered Sig/Jennie Route PRN Reason Start Time Stop Time Status Last Admin Dose Admin Acetaminophen (Tylenol) 500 mg Q6H PRN ORAL Mild Pain (Pain Scale 1-3) 05/19/20 16:45 06/18/20 16:44 Allopurinol (allopurinoL) 300 mg DAILY ORAL 06/06/20 11:00 07/06/20 10:59 06/06/20 11:00 Clonidine HCl (Catapres Tab) 0.1 mg Q4H PRN ORAL SBP > 170 05/24/20 13:15 08/22/20 13:14 Dexamethasone (Decadron) 4 mg DAILY ORAL 06/04/20 15:30 06/14/20 15:29 06/06/20 09:12 Dextrose (Dextrose 50%) 25 ml Q30M PRN IV Hypoglycemia 06/05/20 06:30 09/03/20 06:29 Dextrose (Dextrose 50%) 50 ml Q30M PRN IV Hypoglycemia 06/05/20 06:30 09/03/20 06:29 Docusate Sodium (Colace) 100 mg TWICE A DAY ORAL 05/22/20 18:00 06/21/20 17:59 06/05/20 09:11 Enoxaparin Sodium (Lovenox) 40 mg DAILY SUBQ 06/02/20 09:00 08/31/20 08:59 06/06/20 09:13 Insulin Aspart (NovoLOG) BEFORE MEALS AND HS SUBQ 06/05/20 06:30 09/03/20 06:29 06/06/20 11:45 Insulin Aspart (NovoLOG) 4 units NOVOTIAC SUBQ 06/05/20 06:30 09/03/20 06:29 06/06/20 11:46 Insulin Detemir (Levemir) 12 units DAILY SUBQ 06/05/20 09:00 09/03/20 08:59 06/05/20 09:13 Levofloxacin (Levaquin) 250 mg DAILY ORAL 06/02/20 09:00 06/09/20 08:59 06/06/20 09:12 Metolazone (Zaroxolyn) 5 mg DAILY ORAL 06/01/20 12:00 07/01/20 11:59 06/06/20 09:12 Mirtazapine (Remeron) 7.5 mg BEDTIME ORAL 06/02/20 21:00 08/31/20 20:59 06/05/20 20:52 Pantoprazole (Protonix) 40 mg Q12HR ORAL 05/22/20 21:00 06/21/20 20:59 06/06/20 09:12 Assessment/Plan Assessment/Plan IMPRESSION: 1. History of CML, on dasatinib. 2. Possible pneumonia. 3. Large pleural effusion, s/p B thoracentesis. 4. Hypertension. 5. Elevated D-dimer DISCUSSION: S/p Bilateral thoracentesis, CXR much improved; repeat thoracentesis R side 06/03 Now on NRBM Seen by CTS re : Pleurex Will continue diuresis Agree with broad-spectrum antibiotics. Michelet Hernandez Omar Syed MD Jun 06, 2020 14:20
[2020-06-06 16:00] VITALS: BP 136/59
--- NOTE | 2020-06-06 16:36 | Cardiac Electrophysiology PN ---
Assessment/Plan Assessment/Plan 1. Hypertension. Now off Lisinopril for acute renal failure On Lasix 40 po bid and prn Clonidine 2. Troponin leak. No CP, ECG non ischemic and likely due to renal failure 3. Bilateral pleural effusions. S/P Right side thoracentesis x 2. FU by Dr. Olson. S/P Left thoracentesis again x2 last one 05/29/20. Now on NRB FM VATS on Monday by Dr Joseph pending 4. Hyponatremia. 5. CML x 5 years, sees oncologist [facility] DCed desatanib (also is the likely cause of pleural effusions) Per Dr Dolan 6. Acute renal failure with sudden JUMP in creatinine to 2.7. FU Dr Carpio. Better after iv fluid, Albumin and off Lisinopril. Cr now 1.0 DW RN Subjective Subjective S/P 2 Right sided thoracentesis ( 1.2 liters of serosanguineous fluid ) on 05/21/20 and 05/26/20 S/P 2 Left thoracentesis last one 05/29/20 On 100% NRB FM Scheduled for VATS on Monday by Dr Joseph Objective Last 24 Hour Vital Signs Date Time Temp Pulse Resp B/P (MAP) Pulse Ox O2 Delivery O2 Flow Rate FiO2 06/06/20 12:00 97.0 86 24 133/70 (91) 98 06/06/20 12:00 Bi-pap 15.0 06/06/20 12:00 100 06/06/20 12:00 103 06/06/20 11:57 103 39 98 100 06/06/20 09:52 100 32 97 100 06/06/20 09:38 95 Non-Rebreather 15.0 100 06/06/20 08:00 15.0 06/06/20 08:00 96.4 93 24 103/62 (76) 94 06/06/20 08:00 Non-Rebreather 15.0 06/06/20 08:00 102 06/06/20 04:00 97.4 91 24 107/68 (81) 97 06/06/20 04:00 15.0 06/06/20 04:00 Non-Rebreather 15.0 06/06/20 03:54 91 06/06/20 00:00 15.0 06/06/20 00:00 97.5 86 22 100/64 (76) 98 06/06/20 00:00 Non-Rebreather 15.0 06/05/20 23:57 88 06/05/20 20:00 97.9 96 22 95/62 (73) 98 06/05/20 20:00 15.0 06/05/20 20:00 Non-Rebreather 15.0 06/05/20 19:23 94 06/05/20 18:55 96 Non-Rebreather 15.0 100 Intake and Output 06/05/20 06/06/20 19:00 07:00 Intake Total 450 ml Output Total 600 ml 400 ml Balance -150 ml -400 ml Intake Oral 450 ml Output Urine Total 600 ml 400 ml # Bowel Movements 1 Laboratory Tests Test 06/05/20 17:32 06/05/20 20:09 06/06/20 03:00 06/06/20 05:23 POC Whole Blood Glucose 142 MG/DL (74-106) H Pending Pending White Blood Count 14.7 K/UL (4.8-10.8) H Red Blood Count 4.37 M/UL (4.20-5.40) Hemoglobin 12.5 G/DL (12.0-16.0) Hematocrit 37.3 % (37.0-47.0) Mean Corpuscular Volume 85 FL (80-99) Mean Corpuscular Hemoglobin 28.6 PG (27.0-31.0) Mean Corpuscular Hemoglobin Concent 33.5 G/DL (32.0-36.0) Red Cell Distribution Width 13.9 % (11.6-14.8) Platelet Count 401 K/UL (150-450) Mean Platelet Volume 5.9 FL (6.5-10.1) L Neutrophils (%) (Auto) % (45.0-75.0) Lymphocytes (%) (Auto) % (20.0-45.0) Monocytes (%) (Auto) % (1.0-10.0) Eosinophils (%) (Auto) % (0.0-3.0) Basophils (%) (Auto) % (0.0-2.0) Differential Total Cells Counted 100 Neutrophils % (Manual) 81 % (45-75) H Lymphocytes % (Manual) 13 % (20-45) L Monocytes % (Manual) 5 % (1-10) Eosinophils % (Manual) 1 % (0-3) Basophils % (Manual) 0 % (0-2) Band Neutrophils 0 % (0-8) Platelet Estimate Adequate Platelet Morphology Normal Red Blood Cell Morphology Polychromasia 1+ Sodium Level 138 MMOL/L (136-145) Potassium Level 3.8 MMOL/L (3.5-5.1) Chloride Level 100 MMOL/L (98-107) Carbon Dioxide Level 32 MMOL/L (21-32) Anion Gap 6 mmol/L (5-15) Blood Urea Nitrogen 51 mg/dL (7-18) H Creatinine 1.0 MG/DL (0.55-1.30) Estimat Glomerular Filtration Rate 56.4 mL/min (>60) Glucose Level 77 MG/DL (74-106) # Uric Acid 9.6 MG/DL (2.6-7.2) H Calcium Level 8.4 MG/DL (8.5-10.1) L Phosphorus Level 3.0 MG/DL (2.5-4.9) Magnesium Level 2.3 MG/DL (1.8-2.4) Total Bilirubin 0.2 MG/DL (0.2-1.0) Aspartate Amino Transf (AST/SGOT) 32 U/L (15-37) Alanine Aminotransferase (ALT/SGPT) 10 U/L (12-78) L Alkaline Phosphatase 55 U/L (46-116) C-Reactive Protein, Quantitative 5.3 mg/dL (0.00-0.90) H Pro-B-Type Natriuretic Peptide 9999 pg/mL (0-125) H Total Protein 5.8 G/DL (6.4-8.2) L Albumin 1.9 G/DL (3.4-5.0) L Globulin 3.9 g/dL Albumin/Globulin Ratio 0.5 (1.0-2.7) L Test 06/06/20 11:34 POC Whole Blood Glucose 157 MG/DL (74-106) H Objective HEAD AND NECK: No JVD. On Venturi Mask LUNGS: Decreased breath sounds. CARDIOVASCULAR: Regular S1 and S2 and tachycardic. ABDOMEN: Soft. EXTREMITIES: No pitting edema. Cristian England MD Jun 06, 2020 16:35
[2020-06-06] MEDS: Docusate 100mg cap ORAL SCH (17:46)
--- NOTE | 2020-06-06 19:03 | General Progress Note ---
Subjective Allergies: Coded Allergies: No Known Allergies (Unverified , 05/19/20) Subjective above noted Tolerating PO (+) BM Objective Last 24 Hour Vital Signs Date Time Temp Pulse Resp B/P (MAP) Pulse Ox O2 Delivery O2 Flow Rate FiO2 06/06/20 16:00 87 06/06/20 16:00 100 06/06/20 16:00 96.6 98 31 136/59 (84) 99 06/06/20 16:00 Bi-pap 15.0 06/06/20 15:53 101 36 98 100 06/06/20 12:00 97.0 86 24 133/70 (91) 98 06/06/20 12:00 Bi-pap 15.0 06/06/20 12:00 100 06/06/20 12:00 103 06/06/20 11:57 103 39 98 100 06/06/20 09:52 100 32 97 100 06/06/20 09:38 95 Non-Rebreather 15.0 100 06/06/20 08:00 15.0 06/06/20 08:00 96.4 93 24 103/62 (76) 94 06/06/20 08:00 Non-Rebreather 15.0 06/06/20 08:00 102 06/06/20 04:00 97.4 91 24 107/68 (81) 97 06/06/20 04:00 15.0 06/06/20 04:00 Non-Rebreather 15.0 06/06/20 03:54 91 06/06/20 00:00 15.0 06/06/20 00:00 97.5 86 22 100/64 (76) 98 06/06/20 00:00 Non-Rebreather 15.0 06/05/20 23:57 88 06/05/20 20:00 97.9 96 22 95/62 (73) 98 06/05/20 20:00 15.0 06/05/20 20:00 Non-Rebreather 15.0 06/05/20 19:23 94 Intake and Output 06/05/20 06/06/20 19:00 07:00 Intake Total 450 ml Output Total 600 ml 400 ml Balance -150 ml -400 ml Intake Oral 450 ml Output Urine Total 600 ml 400 ml # Bowel Movements 1 Laboratory Tests 06/05/20 20:09: POC Whole Blood Glucose [Pending] 06/06/20 03:00: White Blood Count 14.7H, Red Blood Count 4.37, Hemoglobin 12.5, Hematocrit 37.3, Mean Corpuscular Volume 85, Mean Corpuscular Hemoglobin 28.6, Mean Corpuscular Hemoglobin Concent 33.5, Red Cell Distribution Width 13.9, Platelet Count 401, Mean Platelet Volume 5.9L, Neutrophils (%) (Auto) , Lymphocytes (%) (Auto) , Monocytes (%) (Auto) , Eosinophils (%) (Auto) , Basophils (%) (Auto) , Differential Total Cells Counted 100, Neutrophils % (Manual) 81H, Lymphocytes % (Manual) 13L, Monocytes % (Manual) 5, Eosinophils % (Manual) 1, Basophils % (Manual) 0, Band Neutrophils 0, Platelet Estimate Adequate, Platelet Morphology Normal, Red Blood Cell Morphology , Polychromasia 1+, Sodium Level 138, Potassium Level 3.8, Chloride Level 100, Carbon Dioxide Level 32, Anion Gap 6, Blood Urea Nitrogen 51H, Creatinine 1.0, Estimat Glomerular Filtration Rate 56.4, Glucose Level 77#, Uric Acid 9.6H, Calcium Level 8.4L, Phosphorus Level 3.0, Magnesium Level 2.3, Total Bilirubin 0.2, Aspartate Amino Transf (AST/SGOT) 32, Alanine Aminotransferase (ALT/SGPT) 10L, Alkaline Phosphatase 55, C- Reactive Protein, Quantitative 5.3H, Pro-B-Type Natriuretic Peptide 9999H, Total Protein 5.8L, Albumin 1.9L, Globulin 3.9, Albumin/Globulin Ratio 0.5L 06/06/20 05:23: POC Whole Blood Glucose [Pending] 06/06/20 11:34: POC Whole Blood Glucose 157H Height (Feet): 5 Height (Inches): 0.00 Weight (Pounds): 100 Objective NCAT supple Coarse BS RR abd soft no edema Assessment/Plan Status: progressing Assessment/Plan: Assessment - Respiratory failure - pleural effusions, s/p thoracentesis - Renal failure - Elevated troponin - HTN - CML Recommendations - Pulmonary management - aspiration precautions - follow labs and exam Antonio Ratliff MD Jun 06, 2020 19:03
[2020-06-06 20:00] VITALS: BP 90/56
[2020-06-07] VITALS (7 sets, daily range): BP systolic 86–112; BP diastolic 55–69
[2020-06-07] MEDS: NovoLOG Insulin Flexpen SUBQ SCH ×7 (05:50→21:00)
--- NOTE | 2020-06-07 07:02 | Hematology/Onc Progress Note ---
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, sees oncologist in [facility] --> at this time STOP desatanib (also is the likely cause of pleural effusions) --> no is s/p thora per pulm/cards --> 06/04 started low dose dexamethasone for immune response suppression --> wbc trend 18->7->10 --> hgb 11.5->12->13 --> ABX ceftriaxone-->off --> bipap, thora prn, may need ct tube --> needs molecular and cytogenectic response for CML, f/u oncologist outpatient # Bilateral pleural effusion --> as per pulm, is on bipap --> thora as needed --> repeat thora prn 05/29 --> pleural fluid is neg for malignancy --> dr. Joseph has accessed # HTN --> hydralazine and lisinopril --> sbp goal <140 # Dehydration --> goal of euvolemia # Elevated ddimer --> duplex lower ext r/o dvt==>neg # Dvt ppx lovenox sq Appreciate consultation and dw RN Subjective HEENT: Denies: no symptoms, eye pain, blurred vision, tearing, double vision, ear pain, ear discharge, nose pain, nose congestion, throat pain, throat swelling, mouth pain, mouth swelling, other Cardiovascular: Denies: no symptoms, chest pain, edema, irregular heart rate, lightheadedness, palpitations, syncope, other Gastrointestinal/Abdominal: Denies: no symptoms, abdomen distended, abdominal pain, black stools, tarry stools, blood in stool, constipated, diarrhea, difficulty swallowing, nausea, poor appetite, poor fluid intake, rectal bleeding, vomiting, other Neurologic/Psychiatric: Denies: no symptoms, anxiety, depressed, emotional problems, headache, numbness, paresthesia, pre-existing deficit, seizure, tingling, tremors, weakness, other Allergies: Coded Allergies: No Known Allergies (Unverified , 05/19/20) Subjective 05/21 labs are noted, no bleeding, with pleural effusions due to desatanbib, s/p thora 05/22 labs are noted, no bleeding, on bipap, i dw her today to stop her med at once 05/24 wbc is improved, continue on ctx for one more day per id, bipap 05/26 have ordered for repeat cxr this am to reeval pleural effusions, labs noted 05/27 with b/l pleural effusions, aware from pulm, constantin prn 05/28 has been refusing scds, thus will start lovenox today, breathing better s/p thora 05/29 with nonrebreather, for thora today, no night sweats, meds noted 05/31 remains on bipap, meds reviewed, off desatanib, worse effusion r>l 06/01 on bipap this am, labs pending for am 06/02 unable to wean off facemask, requiring it, will dw sister today 06/03 labs reviewed, meds noted, continues to be bipap support 06/04 no aspiration, is comfortable, meds reviewed, no bleeding 06/05 dw pulm yes, may need ct surg eval, chest tube, started steriods 06/06: labs reviewed no acute events overnight. 06/07 comfortable, no bleeding, meds reviewed, is on bipap still Objective Objective Current Medications Medications (Trade) Dose Ordered Sig/Jennie Route PRN Reason Start Time Stop Time Status Last Admin Dose Admin Acetaminophen (Tylenol) 500 mg Q6H PRN ORAL Mild Pain (Pain Scale 1-3) 05/19/20 16:45 06/18/20 16:44 Allopurinol (allopurinoL) 300 mg DAILY ORAL 06/06/20 11:00 07/06/20 10:59 06/06/20 11:00 Clonidine HCl (Catapres Tab) 0.1 mg Q4H PRN ORAL SBP > 170 05/24/20 13:15 08/22/20 13:14 Dexamethasone (Decadron) 4 mg DAILY ORAL 06/04/20 15:30 06/14/20 15:29 06/06/20 09:12 Dextrose (Dextrose 50%) 25 ml Q30M PRN IV Hypoglycemia 06/05/20 06:30 09/03/20 06:29 Dextrose (Dextrose 50%) 50 ml Q30M PRN IV Hypoglycemia 06/05/20 06:30 09/03/20 06:29 Docusate Sodium (Colace) 100 mg TWICE A DAY ORAL 05/22/20 18:00 06/21/20 17:59 06/06/20 17:46 Enoxaparin Sodium (Lovenox) 40 mg DAILY SUBQ 06/02/20 09:00 08/31/20 08:59 06/06/20 09:13 Insulin Aspart (NovoLOG) BEFORE MEALS AND HS SUBQ 06/05/20 06:30 09/03/20 06:29 06/06/20 11:45 Insulin Aspart (NovoLOG) 4 units NOVOTIAC SUBQ 06/05/20 06:30 09/03/20 06:29 06/06/20 11:46 Insulin Detemir (Levemir) 12 units DAILY SUBQ 06/05/20 09:00 09/03/20 08:59 06/05/20 09:13 Levofloxacin (Levaquin) 250 mg DAILY ORAL 06/02/20 09:00 06/09/20 08:59 06/06/20 09:12 Metolazone (Zaroxolyn) 5 mg DAILY ORAL 06/01/20 12:00 07/01/20 11:59 06/06/20 09:12 Mirtazapine (Remeron) 7.5 mg BEDTIME ORAL 06/02/20 21:00 08/31/20 20:59 06/06/20 20:01 Pantoprazole (Protonix) 40 mg Q12HR ORAL 05/22/20 21:00 06/21/20 20:59 06/06/20 20:01 Last 24 Hour Vital Signs Date Time Temp Pulse Resp B/P (MAP) Pulse Ox O2 Delivery O2 Flow Rate FiO2 06/07/20 04:00 98.0 94 22 112/63 (79) 99 06/07/20 04:00 Bi-pap 15.0 06/07/20 04:00 100 06/07/20 03:48 92 06/07/20 03:04 94 21 98 100 06/07/20 00:00 97.9 96 24 96/58 (71) 99 06/07/20 00:00 Bi-pap 15.0 06/07/20 00:00 100 06/06/20 23:58 97 06/06/20 23:16 94 18 99 100 06/06/20 20:00 97.7 98 24 90/56 (67) 100 06/06/20 20:00 100 06/06/20 20:00 Bi-pap 15.0 06/06/20 19:28 95 06/06/20 19:15 103 34 98 100 06/06/20 19:14 98 Bi-Pap 100 06/06/20 16:00 87 06/06/20 16:00 100 06/06/20 16:00 96.6 98 31 136/59 (84) 99 06/06/20 16:00 Bi-pap 15.0 06/06/20 15:53 101 36 98 100 06/06/20 12:00 97.0 86 24 133/70 (91) 98 06/06/20 12:00 Bi-pap 15.0 06/06/20 12:00 100 06/06/20 12:00 103 06/06/20 11:57 103 39 98 100 06/06/20 09:52 100 32 97 100 06/06/20 09:38 95 Non-Rebreather 15.0 100 06/06/20 08:00 15.0 06/06/20 08:00 96.4 93 24 103/62 (76) 94 06/06/20 08:00 Non-Rebreather 15.0 06/06/20 08:00 102 06/06/20 04:00 97.4 91 24 107/68 (81) 97 06/06/20 04:00 15.0 06/06/20 04:00 Non-Rebreather 15.0 06/06/20 03:54 91 06/06/20 00:00 15.0 06/06/20 00:00 97.5 86 22 100/64 (76) 98 06/06/20 00:00 Non-Rebreather 15.0 06/05/20 23:57 88 06/05/20 20:00 97.9 96 22 95/62 (73) 98 06/05/20 20:00 15.0 06/05/20 20:00 Non-Rebreather 15.0 06/05/20 19:23 94 06/05/20 18:55 96 Non-Rebreather 15.0 100 06/05/20 16:00 92 06/05/20 16:00 15.0 06/05/20 16:00 Non-Rebreather 15.0 06/05/20 16:00 97.5 94 20 98/68 (78) 97 06/05/20 12:00 97.5 92 20 95/57 (70) 99 06/05/20 11:55 15.0 06/05/20 11:53 Non-Rebreather 15.0 06/05/20 11:41 93 06/05/20 08:00 96.3 99 20 98/64 (75) 99 06/05/20 08:00 Non-Rebreather 15.0 06/05/20 08:00 15.0 06/05/20 07:46 102 Intake and Output 06/06/20 06/07/20 19:00 07:00 Intake Total 240 ml Output Total 400 ml 375 ml Balance -160 ml -375 ml Intake Oral 240 ml Output Urine Total 400 ml 375 ml Labs Test 06/04/20 09:40 06/05/20 03:15 06/05/20 06:38 06/05/20 11:51 White Blood Count 16.8 K/UL (4.8-10.8) 13.6 K/UL (4.8-10.8) Red Blood Count 4.49 M/UL (4.20-5.40) 4.34 M/UL (4.20-5.40) Hemoglobin 12.7 G/DL (12.0-16.0) 12.4 G/DL (12.0-16.0) Hematocrit 37.9 % (37.0-47.0) 36.6 % (37.0-47.0) Mean Corpuscular Volume 85 FL (80-99) 84 FL (80-99) Mean Corpuscular Hemoglobin 28.3 PG (27.0-31.0) 28.5 PG (27.0-31.0) Mean Corpuscular Hemoglobin Concent 33.5 G/DL (32.0-36.0) 33.8 G/DL (32.0-36.0) Red Cell Distribution Width 13.9 % (11.6-14.8) 13.7 % (11.6-14.8) Platelet Count 399 K/UL (150-450) 431 K/UL (150-450) Mean Platelet Volume 6.1 FL (6.5-10.1) 6.0 FL (6.5-10.1) Neutrophils (%) (Auto) % (45.0-75.0) % (45.0-75.0) Lymphocytes (%) (Auto) % (20.0-45.0) % (20.0-45.0) Monocytes (%) (Auto) % (1.0-10.0) % (1.0-10.0) Eosinophils (%) (Auto) % (0.0-3.0) % (0.0-3.0) Basophils (%) (Auto) % (0.0-2.0) % (0.0-2.0) Differential Total Cells Counted 100 100 Neutrophils % (Manual) 95 % (45-75) 96 % (45-75) Lymphocytes % (Manual) 3 % (20-45) 4 % (20-45) Monocytes % (Manual) 2 % (1-10) 0 % (1-10) Eosinophils % (Manual) 0 % (0-3) 0 % (0-3) Basophils % (Manual) 0 % (0-2) 0 % (0-2) Band Neutrophils 0 % (0-8) 0 % (0-8) Platelet Estimate Adequate Adequate Platelet Morphology Normal Normal Red Blood Cell Morphology Normal Normal Sodium Level 129 MMOL/L (136-145) 136 MMOL/L (136-145) Potassium Level 2.7 MMOL/L (3.5-5.1) 4.0 MMOL/L (3.5-5.1) Chloride Level 93 MMOL/L (98-107) 100 MMOL/L (98-107) Carbon Dioxide Level 34 MMOL/L (21-32) 32 MMOL/L (21-32) Anion Gap -1 mmol/L (5-15) Blood Urea Nitrogen 79 mg/dL (7-18) 63 mg/dL (7-18) Creatinine 1.8 MG/DL (0.55-1.30) 1.2 MG/DL (0.55-1.30) Estimat Glomerular Filtration Rate 28.6 mL/min (>60) 45.7 mL/min (>60) Glucose Level 349 MG/DL (74-106) 233 MG/DL (74-106) Calcium Level 8.6 MG/DL (8.5-10.1) 8.0 MG/DL (8.5-10.1) Phosphorus Level 4.4 MG/DL (2.5-4.9) 2.8 MG/DL (2.5-4.9) Magnesium Level 2.1 MG/DL (1.8-2.4) 2.1 MG/DL (1.8-2.4) Total Bilirubin 0.3 MG/DL (0.2-1.0) 0.3 MG/DL (0.2-1.0) Aspartate Amino Transf (AST/SGOT) 26 U/L (15-37) 22 U/L (15-37) Alanine Aminotransferase (ALT/SGPT) 18 U/L (12-78) 10 U/L (12-78) Alkaline Phosphatase 61 U/L (46-116) 57 U/L (46-116) C-Reactive Protein, Quantitative 21.5 mg/dL (0.00-0.90) 15.6 mg/dL (0.00-0.90) Total Protein 5.5 G/DL (6.4-8.2) 5.3 G/DL (6.4-8.2) Albumin 1.9 G/DL (3.4-5.0) 1.8 G/DL (3.4-5.0) Globulin 3.6 g/dL 3.5 g/dL Albumin/Globulin Ratio 0.5 (1.0-2.7) 0.5 (1.0-2.7) Pro-B-Type Natriuretic Peptide 9716 pg/mL (0-125) POC Whole Blood Glucose 103 MG/DL (74-106) Test 06/05/20 17:32 06/05/20 20:09 06/06/20 03:00 06/06/20 05:23 POC Whole Blood Glucose 142 MG/DL (74-106) White Blood Count 14.7 K/UL (4.8-10.8) Red Blood Count 4.37 M/UL (4.20-5.40) Hemoglobin 12.5 G/DL (12.0-16.0) Hematocrit 37.3 % (37.0-47.0) Mean Corpuscular Volume 85 FL (80-99) Mean Corpuscular Hemoglobin 28.6 PG (27.0-31.0) Mean Corpuscular Hemoglobin Concent 33.5 G/DL (32.0-36.0) Red Cell Distribution Width 13.9 % (11.6-14.8) Platelet Count 401 K/UL (150-450) Mean Platelet Volume 5.9 FL (6.5-10.1) Neutrophils (%) (Auto) % (45.0-75.0) Lymphocytes (%) (Auto) % (20.0-45.0) Monocytes (%) (Auto) % (1.0-10.0) Eosinophils (%) (Auto) % (0.0-3.0) Basophils (%) (Auto) % (0.0-2.0) Differential Total Cells Counted 100 Neutrophils % (Manual) 81 % (45-75) Lymphocytes % (Manual) 13 % (20-45) Monocytes % (Manual) 5 % (1-10) Eosinophils % (Manual) 1 % (0-3) Basophils % (Manual) 0 % (0-2) Band Neutrophils 0 % (0-8) Platelet Estimate Adequate Platelet Morphology Normal Red Blood Cell Morphology Polychromasia 1+ Sodium Level 138 MMOL/L (136-145) Potassium Level 3.8 MMOL/L (3.5-5.1) Chloride Level 100 MMOL/L (98-107) Carbon Dioxide Level 32 MMOL/L (21-32) Anion Gap 6 mmol/L (5-15) Blood Urea Nitrogen 51 mg/dL (7-18) Creatinine 1.0 MG/DL (0.55-1.30) Estimat Glomerular Filtration Rate 56.4 mL/min (>60) Glucose Level 77 MG/DL (74-106) Uric Acid 9.6 MG/DL (2.6-7.2) Calcium Level 8.4 MG/DL (8.5-10.1) Phosphorus Level 3.0 MG/DL (2.5-4.9) Magnesium Level 2.3 MG/DL (1.8-2.4) Total Bilirubin 0.2 MG/DL (0.2-1.0) Aspartate Amino Transf (AST/SGOT) 32 U/L (15-37) Alanine Aminotransferase (ALT/SGPT) 10 U/L (12-78) Alkaline Phosphatase 55 U/L (46-116) C-Reactive Protein, Quantitative 5.3 mg/dL (0.00-0.90) Pro-B-Type Natriuretic Peptide 9999 pg/mL (0-125) Total Protein 5.8 G/DL (6.4-8.2) Albumin 1.9 G/DL (3.4-5.0) Globulin 3.9 g/dL Albumin/Globulin Ratio 0.5 (1.0-2.7) Test 06/06/20 11:34 06/06/20 19:44 06/07/20 05:01 POC Whole Blood Glucose 157 MG/DL (74-106) Height (Feet): 5 Height (Inches): 0.00 Weight (Pounds): 100 Dionicio Higgins MD Jun 07, 2020 07:02
[2020-06-07] MEDS: Docusate 100mg cap ORAL SCH ×2 (09:00→17:41)
[2020-06-07] MEDS: Enoxaparin 40mg Inj SUBQ SCH (09:48)
[2020-06-07] MEDS: Levemir Flexpen SUBQ SCH (09:50)
[2020-06-07 12:12] LABS: HEMATOCRIT 39.4 % (37.0-47.0); HEMOGLOBIN 12.9 G/DL (12.0-16.0); MEAN CORPUSCULAR VOLUME 85 FL (80-99); PLATELET COUNT 402 K/UL (150-450); RED BLOOD COUNT 4.63 M/UL (4.20-5.40); RED CELL DISTRIBUTION WIDTH 14.1 % (11.6-14.8); WHITE BLOOD COUNT 13.4 K/UL (4.8-10.8)
[2020-06-07 12:29] LABS: CALCIUM 8.7 MG/DL (8.5-10.1); CREATININE 1.1 MG/DL (0.55-1.30); POTASSIUM 3.8 MMOL/L (3.5-5.1)
--- NOTE | 2020-06-07 12:36 | Pulmonology Progress Note ---
Subjective ROS Limited/Unobtainable: Yes Interval Events: Diuresing well; s/p repeat thoracentesis R side; 1.6L removed Constitutional: Reports: no symptoms, other - feels better HEENT: Repors: no symptoms Respiratory: Reports: dry cough Gastrointestinal/Abdominal: Reports: no symptoms Genitourinary: Reports: no symptoms Neurologic: Reports: no symptoms Musculoskeletal: Denies: pain Allergies: Coded Allergies: No Known Allergies (Unverified , 05/19/20) Objective Last 24 Hour Vital Signs Date Time Temp Pulse Resp B/P (MAP) Pulse Ox O2 Delivery O2 Flow Rate FiO2 06/07/20 08:00 Bi-pap Bi-pap 06/07/20 08:00 Bi-pap Bi-pap 06/07/20 08:00 93 06/07/20 08:00 98.0 94 22 92/55 (67) 99 06/07/20 08:00 100 06/07/20 08:00 100 06/07/20 08:00 98.0 94 22 92/55 (67) 99 06/07/20 07:26 92 29 98 100 06/07/20 07:24 98 Bi-Pap 100 06/07/20 04:00 98.0 94 22 112/63 (79) 99 06/07/20 04:00 Bi-pap 15.0 06/07/20 04:00 100 06/07/20 03:48 92 06/07/20 03:04 94 21 98 100 06/07/20 00:00 97.9 96 24 96/58 (71) 99 06/07/20 00:00 Bi-pap 15.0 06/07/20 00:00 100 06/06/20 23:58 97 06/06/20 23:16 94 18 99 100 06/06/20 20:00 97.7 98 24 90/56 (67) 100 06/06/20 20:00 100 06/06/20 20:00 Bi-pap 15.0 06/06/20 19:28 95 06/06/20 19:15 103 34 98 100 06/06/20 19:14 98 Bi-Pap 100 06/06/20 16:00 87 06/06/20 16:00 100 06/06/20 16:00 96.6 98 31 136/59 (84) 99 06/06/20 16:00 Bi-pap 15.0 06/06/20 15:53 101 36 98 100 Intake and Output 06/06/20 06/07/20 19:00 07:00 Intake Total 240 ml Output Total 400 ml 375 ml Balance -160 ml -375 ml Intake Oral 240 ml Output Urine Total 400 ml 375 ml General Appearance: no acute distress Respiratory: chest wall non-tender, normal breath sounds, no respiratory distress, no accessory muscle use, decreased breath sounds Cardiovascular: normal peripheral pulses, normal rate Abdomen: normal bowel sounds Extremities: no cyanosis, no clubbing, no edema Laboratory Tests 06/06/20 19:44: POC Whole Blood Glucose [Pending] 06/07/20 05:01: POC Whole Blood Glucose [Pending] 06/07/20 09:41: POC Whole Blood Glucose 124H 06/07/20 11:40: POC Whole Blood Glucose 130H 06/07/20 12:02: White Blood Count 13.4H, Red Blood Count 4.63, Hemoglobin 12.9, Hematocrit 39.4, Mean Corpuscular Volume 85, Mean Corpuscular Hemoglobin 28.0, Mean Corpuscular Hemoglobin Concent 32.8, Red Cell Distribution Width 14.1, Platelet Count 402, Mean Platelet Volume 6.1L, Neutrophils (%) (Auto) , Lymphocytes (%) (Auto) , Monocytes (%) (Auto) , Eosinophils (%) (Auto) , Basophils (%) (Auto) , Neutrophils % (Manual) [Pending], Lymphocytes % (Manual) [Pending], Platelet Estimate [Pending], Platelet Morphology [Pending], Sodium Level [Pending], Potassium Level [Pending], Chloride Level [Pending], Carbon Dioxide Level [Pending], Blood Urea Nitrogen [Pending], Creatinine [Pending], Estimat Glomerular Filtration Rate [Pending], Glucose Level [Pending], Calcium Level [Pending] Current Medications Medications (Trade) Dose Ordered Sig/Jennie Route PRN Reason Start Time Stop Time Status Last Admin Dose Admin Acetaminophen (Tylenol) 500 mg Q6H PRN ORAL Mild Pain (Pain Scale 1-3) 05/19/20 16:45 06/18/20 16:44 Allopurinol (allopurinoL) 300 mg DAILY ORAL 06/06/20 11:00 07/06/20 10:59 06/06/20 11:00 Clonidine HCl (Catapres Tab) 0.1 mg Q4H PRN ORAL SBP > 170 05/24/20 13:15 08/22/20 13:14 Dexamethasone Sodium Phosphate (Decadron 4mg/ml vial) 4 mg DAILY IVP 06/07/20 12:30 09/05/20 12:29 UNV Dextrose (Dextrose 50%) 25 ml Q30M PRN IV Hypoglycemia 06/05/20 06:30 09/03/20 06:29 Dextrose (Dextrose 50%) 50 ml Q30M PRN IV Hypoglycemia 06/05/20 06:30 09/03/20 06:29 Docusate Sodium (Colace) 100 mg TWICE A DAY ORAL 05/22/20 18:00 06/21/20 17:59 06/06/20 17:46 Enoxaparin Sodium (Lovenox) 40 mg DAILY SUBQ 06/02/20 09:00 08/31/20 08:59 06/07/20 09:48 Insulin Aspart (NovoLOG) BEFORE MEALS AND HS SUBQ 06/05/20 06:30 09/03/20 06:29 06/06/20 11:45 Insulin Aspart (NovoLOG) 4 units NOVOTIAC SUBQ 06/05/20 06:30 09/03/20 06:29 06/06/20 11:46 Insulin Detemir (Levemir) 12 units DAILY SUBQ 06/05/20 09:00 09/03/20 08:59 06/07/20 09:50 Levofloxacin (Levaquin) 250 mg DAILY ORAL 06/02/20 09:00 06/09/20 08:59 06/06/20 09:12 Metolazone (Zaroxolyn) 5 mg DAILY ORAL 06/01/20 12:00 07/01/20 11:59 06/07/20 09:00 Mirtazapine (Remeron) 7.5 mg BEDTIME ORAL 06/02/20 21:00 08/31/20 20:59 06/06/20 20:01 Pantoprazole (Protonix) 40 mg DAILY IVP 06/08/20 09:00 07/08/20 08:59 Assessment/Plan Assessment/Plan IMPRESSION: 1. History of CML, on dasatinib. 2. Possible pneumonia. 3. Large pleural effusion bilateral s/p B thoracentesis. 4. Hypertension. 5. Elevated D-dimer DISCUSSION: S/p Bilateral thoracentesis, CXR much improved; repeat thoracentesis R side 06/03 Now on NRBM pulse ox 100% Seen by CTS re : Pleurex Will continue diuresis Agree with broad-spectrum antibiotics. Above plan discussed with supervising physician Balbir Palmer NP Jun 07, 2020 12:36
--- NOTE | 2020-06-07 13:48 | Nephrology Progress Note ---
Assessment/Plan Problem List: (1) ASHLEY (acute kidney injury) (2) Bilateral pleural effusion (3) Leukemia Assessment Imp: Acute renal failure, with sudden jump in serum creatinine to 2.7 History of leukemia Hypertension, now hypotensive Hyponatremia on admission, improved Bilateral pleural effusion. Status post paracentesis. Elevated troponin, most likely leak. Plan June 06: Status unchanged. Labs reviewed. Renal parameters stable. Continue per consultants. Remains full code. Remains on BiPAP. June 05: Electrolytes now normalized. Discussed with RN. Patient due for VATS surgery early next week. Continue current pulmonary support and monitor renal parameters. June 04: Potassium low. Creatinine higher. Will discontinue IV Lasix as the patient already on metolazone. Potassium supplement ordered. 250 mL of 3% saline ordered. Continue to monitor electrolytes and renal parameters. Continue per consultants. June 03: Discussed with Dr. Olson. Patient's pleural effusions continue to be a challenge. Patient on diuretics. Will watch renal parameters and electrolytes. Patient was already tapped twice. Continue per current management. June 02: No chemistry panel done today. Status unchanged. Remains on nonrebreathing mask. Will check lab tomorrow. Continue per pulmonary. June 01: Labs reviewed. Status unchanged. Remains on nonrebreathing mask. Will increase his Lasix to 40 twice daily. Stable electrolytes and renal parameters at this time. May 31: No chemistry panel done today. Patient still on nonrebreathing mask. Patient full code. Will check lab tomorrow. Patient's main issue is respiratory. May 30: Labs reviewed. Renal parameters stable. Continue per pulmonary. May 29: No chemistry panel done today. Remains on nonrebreather mask. Will order labs tomorrow. Continue per consultants. May 28: Serum creatinine up to 1.5. Remains on nonrebreather mask. Since admission had 3 thoracenteses for pleural effusion over the left and right. Respiratory status remains unstable. Continue per pulmonary. Will watch renal parameters. May 27: When seen the patient was on 100% nonrebreather mask. Renal panel within normal limit. Continue per consultants. Main problem remains respiratory. May 26: Renal parameters stable. Started on Lasix 40 mg daily. Continue to monitor renal parameters and electrolytes. Continue per consultants. May 25: Renal parameters within normal limit. Another dose of IV Lasix given. Continue to monitor electrolytes. Continue per consultants. May 24: Renal parameters normalized. Will give the Lasix 40 mg IV once. 1 dose of Kayexalate for hyperkalemia. Continue to monitor renal parameters. Previously: Today renal parameters are improved. Serum creatinine down to 1.6 from 2.7 Continue to hold lisinopril Continue to hold Lasix Half Normal saline 100 cc an hour one liter only was given yesterday Albumin bolus given yesterday, repeat as needed Monitor renal parameters Avoid nephrotoxic's Subjective ROS Limited/Unobtainable: No Constitutional: Reports: malaise Objective Objective Last 24 Hour Vital Signs Date Time Temp Pulse Resp B/P (MAP) Pulse Ox O2 Delivery O2 Flow Rate FiO2 06/07/20 12:00 100 06/07/20 12:00 94 06/07/20 12:00 Bi-pap Bi-pap 06/07/20 12:00 96.4 94 24 89/60 (70) 100 06/07/20 08:00 Bi-pap Bi-pap 06/07/20 08:00 Bi-pap Bi-pap 06/07/20 08:00 93 06/07/20 08:00 98.0 94 22 92/55 (67) 99 06/07/20 08:00 100 06/07/20 08:00 100 06/07/20 08:00 98.0 94 22 92/55 (67) 99 06/07/20 07:26 92 29 98 100 06/07/20 07:24 98 Bi-Pap 100 06/07/20 04:00 98.0 94 22 112/63 (79) 99 06/07/20 04:00 Bi-pap 15.0 06/07/20 04:00 100 06/07/20 03:48 92 06/07/20 03:04 94 21 98 100 06/07/20 00:00 97.9 96 24 96/58 (71) 99 06/07/20 00:00 Bi-pap 15.0 06/07/20 00:00 100 06/06/20 23:58 97 06/06/20 23:16 94 18 99 100 06/06/20 20:00 97.7 98 24 90/56 (67) 100 06/06/20 20:00 100 06/06/20 20:00 Bi-pap 15.0 06/06/20 19:28 95 06/06/20 19:15 103 34 98 100 06/06/20 19:14 98 Bi-Pap 100 06/06/20 16:00 87 06/06/20 16:00 100 06/06/20 16:00 96.6 98 31 136/59 (84) 99 06/06/20 16:00 Bi-pap 15.0 06/06/20 15:53 101 36 98 100 Intake and Output 06/06/20 06/07/20 19:00 07:00 Intake Total 240 ml Output Total 400 ml 375 ml Balance -160 ml -375 ml Intake Oral 240 ml Output Urine Total 400 ml 375 ml Laboratory Tests 06/06/20 19:44: POC Whole Blood Glucose [Pending] 06/07/20 05:01: POC Whole Blood Glucose [Pending] 06/07/20 09:41: POC Whole Blood Glucose 124H 06/07/20 11:40: POC Whole Blood Glucose 130H 06/07/20 12:02: White Blood Count 13.4H, Red Blood Count 4.63, Hemoglobin 12.9, Hematocrit 39.4, Mean Corpuscular Volume 85, Mean Corpuscular Hemoglobin 28.0, Mean Corpuscular Hemoglobin Concent 32.8, Red Cell Distribution Width 14.1, Platelet Count 402, Mean Platelet Volume 6.1L, Neutrophils (%) (Auto) , Lymphocytes (%) (Auto) , Monocytes (%) (Auto) , Eosinophils (%) (Auto) , Basophils (%) (Auto) , Differential Total Cells Counted 100, Neutrophils % (Manual) 90H, Lymphocytes % (Manual) 4L, Monocytes % (Manual) 6, Eosinophils % (Manual) 0, Basophils % (Manual) 0, Band Neutrophils 0, Platelet Estimate Adequate, Platelet Morphology Normal, Anisocytosis 1+, Sodium Level 137, Potassium Level 3.8, Chloride Level 98, Carbon Dioxide Level 28, Anion Gap 11, Blood Urea Nitrogen 60H, Creatinine 1.1, Estimat Glomerular Filtration Rate 50.5, Glucose Level 124H, Calcium Level 8.7 Height (Feet): 5 Height (Inches): 0.00 Weight (Pounds): 100 General Appearance: no apparent distress Cardiovascular: tachycardia Respiratory/Chest: decreased breath sounds Abdomen: soft, distended Objective No change Montrell Carpio MD Jun 07, 2020 13:48
--- NOTE | 2020-06-07 14:24 | Infectious Diseases Prog Note ---
Assessment/Plan Assessment/Plan IMPRESSION: Leukocytosis, steroid related systemic inflammatory response syndrome or sepsis, Recurrent pleural effusion, CML, Accelerated hypertension, Elevation of troponin. Hypoxemia Hyperglycemia RECOMMENDATION: Discontinue PO Levaquin Obseve off antibiotic Subjective ROS Limited/Unobtainable: Yes Constitutional: Reports: anorexia Respiratory: Reports: no symptoms Allergies: Coded Allergies: No Known Allergies (Unverified , 05/19/20) Objective Last 24 Hour Vital Signs Date Time Temp Pulse Resp B/P (MAP) Pulse Ox O2 Delivery O2 Flow Rate FiO2 06/07/20 12:00 100 06/07/20 12:00 94 06/07/20 12:00 Bi-pap Bi-pap 06/07/20 12:00 96.4 94 24 89/60 (70) 100 06/07/20 11:32 93 35 98 100 06/07/20 08:00 Bi-pap Bi-pap 06/07/20 08:00 Bi-pap Bi-pap 06/07/20 08:00 93 06/07/20 08:00 98.0 94 22 92/55 (67) 99 06/07/20 08:00 100 06/07/20 08:00 100 06/07/20 08:00 98.0 94 22 92/55 (67) 99 06/07/20 07:26 92 29 98 100 06/07/20 07:24 98 Bi-Pap 100 06/07/20 04:00 98.0 94 22 112/63 (79) 99 06/07/20 04:00 Bi-pap 15.0 06/07/20 04:00 100 06/07/20 03:48 92 06/07/20 03:04 94 21 98 100 06/07/20 00:00 97.9 96 24 96/58 (71) 99 06/07/20 00:00 Bi-pap 15.0 06/07/20 00:00 100 06/06/20 23:58 97 06/06/20 23:16 94 18 99 100 06/06/20 20:00 97.7 98 24 90/56 (67) 100 06/06/20 20:00 100 06/06/20 20:00 Bi-pap 15.0 06/06/20 19:28 95 06/06/20 19:15 103 34 98 100 06/06/20 19:14 98 Bi-Pap 100 06/06/20 16:00 87 06/06/20 16:00 100 06/06/20 16:00 96.6 98 31 136/59 (84) 99 06/06/20 16:00 Bi-pap 15.0 06/06/20 15:53 101 36 98 100 Height (Feet): 5 Height (Inches): 0.00 Weight (Pounds): 100 General Appearance: no acute distress HEENT: mucous membranes moist Respiratory/Chest: decreased breath sounds, other - on BIPAP Cardiovascular: normal rate Abdomen: soft, non tender Extremities: no edema Neurologic/Psychiatric: alert, responsive Laboratory Tests Test 06/06/20 19:44 06/07/20 05:01 06/07/20 09:41 06/07/20 11:40 POC Whole Blood Glucose Pending Pending 124 MG/DL (74-106) H 130 MG/DL (74-106) H Test 06/07/20 12:02 White Blood Count 13.4 K/UL (4.8-10.8) H Red Blood Count 4.63 M/UL (4.20-5.40) Hemoglobin 12.9 G/DL (12.0-16.0) Hematocrit 39.4 % (37.0-47.0) Mean Corpuscular Volume 85 FL (80-99) Mean Corpuscular Hemoglobin 28.0 PG (27.0-31.0) Mean Corpuscular Hemoglobin Concent 32.8 G/DL (32.0-36.0) Red Cell Distribution Width 14.1 % (11.6-14.8) Platelet Count 402 K/UL (150-450) Mean Platelet Volume 6.1 FL (6.5-10.1) L Neutrophils (%) (Auto) % (45.0-75.0) Lymphocytes (%) (Auto) % (20.0-45.0) Monocytes (%) (Auto) % (1.0-10.0) Eosinophils (%) (Auto) % (0.0-3.0) Basophils (%) (Auto) % (0.0-2.0) Differential Total Cells Counted 100 Neutrophils % (Manual) 90 % (45-75) H Lymphocytes % (Manual) 4 % (20-45) L Monocytes % (Manual) 6 % (1-10) Eosinophils % (Manual) 0 % (0-3) Basophils % (Manual) 0 % (0-2) Band Neutrophils 0 % (0-8) Platelet Estimate Adequate Platelet Morphology Normal Anisocytosis 1+ Sodium Level 137 MMOL/L (136-145) Potassium Level 3.8 MMOL/L (3.5-5.1) Chloride Level 98 MMOL/L (98-107) Carbon Dioxide Level 28 MMOL/L (21-32) Anion Gap 11 mmol/L (5-15) Blood Urea Nitrogen 60 mg/dL (7-18) H Creatinine 1.1 MG/DL (0.55-1.30) Estimat Glomerular Filtration Rate 50.5 mL/min (>60) Glucose Level 124 MG/DL (74-106) H Calcium Level 8.7 MG/DL (8.5-10.1) Current Medications Medications (Trade) Dose Ordered Sig/Jennie Route PRN Reason Start Time Stop Time Status Last Admin Dose Admin Acetaminophen (Tylenol) 500 mg Q6H PRN ORAL Mild Pain (Pain Scale 1-3) 05/19/20 16:45 06/18/20 16:44 Allopurinol (allopurinoL) 300 mg DAILY ORAL 06/06/20 11:00 07/06/20 10:59 06/06/20 11:00 Clonidine HCl (Catapres Tab) 0.1 mg Q4H PRN ORAL SBP > 170 05/24/20 13:15 08/22/20 13:14 Dexamethasone Sodium Phosphate (Decadron 4mg/ml vial) 4 mg DAILY IVP 06/07/20 12:30 09/05/20 12:29 06/07/20 12:49 Dextrose (Dextrose 50%) 25 ml Q30M PRN IV Hypoglycemia 06/05/20 06:30 09/03/20 06:29 Dextrose (Dextrose 50%) 50 ml Q30M PRN IV Hypoglycemia 06/05/20 06:30 09/03/20 06:29 Docusate Sodium (Colace) 100 mg TWICE A DAY ORAL 05/22/20 18:00 06/21/20 17:59 06/06/20 17:46 Enoxaparin Sodium (Lovenox) 40 mg DAILY SUBQ 06/02/20 09:00 08/31/20 08:59 06/07/20 09:48 Insulin Aspart (NovoLOG) BEFORE MEALS AND HS SUBQ 06/05/20 06:30 09/03/20 06:29 06/06/20 11:45 Insulin Aspart (NovoLOG) 4 units NOVOTIAC SUBQ 06/05/20 06:30 09/03/20 06:29 06/06/20 11:46 Insulin Detemir (Levemir) 12 units DAILY SUBQ 06/05/20 09:00 09/03/20 08:59 06/07/20 09:50 Levofloxacin (Levaquin) 250 mg DAILY ORAL 06/02/20 09:00 06/09/20 08:59 06/06/20 09:12 Metolazone (Zaroxolyn) 5 mg DAILY ORAL 06/01/20 12:00 07/01/20 11:59 06/07/20 09:00 Mirtazapine (Remeron) 7.5 mg BEDTIME ORAL 06/02/20 21:00 08/31/20 20:59 06/06/20 20:01 Pantoprazole (Protonix) 40 mg DAILY IVP 06/08/20 09:00 07/08/20 08:59 Timothy Pennington MD Jun 07, 2020 14:23
[2020-06-07] MEDS ORDERED: NS 250 ML IVPB ONE (17:30)
--- NOTE | 2020-06-07 18:03 | Cardiac Electrophysiology PN ---
Assessment/Plan Assessment/Plan 1. Hypertension. Now off Lisinopril for acute renal failure On Lasix 40 po bid and prn Clonidine 2. Troponin leak. No CP, ECG non ischemic and likely due to renal failure 3. Bilateral pleural effusions. S/P Right side thoracentesis x 2. FU by Dr. Olson. S/P Left thoracentesis again x2 last one 05/29/20. Now on NRB FM VATS on Monday by Dr Joseph pending 4. Hyponatremia. 5. CML x 5 years, sees oncologist in [facility] area DCed desatanib (also is the likely cause of pleural effusions) Per Dr Dolan 6. Acute renal failure with sudden JUMP in creatinine to 2.7. FU Dr Carpio. Better after iv fluid, Albumin and off Lisinopril. Cr now 1.0 DW RN Subjective Subjective S/P 2 Right sided thoracentesis on 05/21/20 and 05/26/20 S/P 2 Left thoracentesis last one 05/29/20 On 100% NRB FM Scheduled for VATS on Monday by Dr Joseph Objective Last 24 Hour Vital Signs Date Time Temp Pulse Resp B/P (MAP) Pulse Ox O2 Delivery O2 Flow Rate FiO2 06/07/20 16:09 100 06/07/20 16:08 88 06/07/20 16:05 Bi-pap Bi-pap 06/07/20 16:00 Bi-pap Bi-pap 06/07/20 16:00 100 06/07/20 16:00 96.6 89 26 86/59 (68) 100 06/07/20 15:09 89 29 96 100 06/07/20 12:00 100 06/07/20 12:00 94 06/07/20 12:00 Bi-pap Bi-pap 06/07/20 12:00 96.4 94 24 89/60 (70) 100 06/07/20 11:32 93 35 98 100 06/07/20 08:00 Bi-pap Bi-pap 06/07/20 08:00 Bi-pap Bi-pap 06/07/20 08:00 93 06/07/20 08:00 98.0 94 22 92/55 (67) 99 06/07/20 08:00 100 06/07/20 08:00 100 06/07/20 08:00 98.0 94 22 92/55 (67) 99 06/07/20 07:26 92 29 98 100 06/07/20 07:24 98 Bi-Pap 100 06/07/20 04:00 98.0 94 22 112/63 (79) 99 06/07/20 04:00 Bi-pap 15.0 06/07/20 04:00 100 06/07/20 03:48 92 06/07/20 03:04 94 21 98 100 06/07/20 00:00 97.9 96 24 96/58 (71) 99 06/07/20 00:00 Bi-pap 15.0 06/07/20 00:00 100 06/06/20 23:58 97 06/06/20 23:16 94 18 99 100 06/06/20 20:00 97.7 98 24 90/56 (67) 100 06/06/20 20:00 100 06/06/20 20:00 Bi-pap 15.0 06/06/20 19:28 95 06/06/20 19:15 103 34 98 100 06/06/20 19:14 98 Bi-Pap 100 Intake and Output 06/06/20 06/07/20 19:00 07:00 Intake Total 240 ml Output Total 400 ml 375 ml Balance -160 ml -375 ml Intake Oral 240 ml Output Urine Total 400 ml 375 ml Laboratory Tests Test 06/06/20 19:44 06/07/20 05:01 06/07/20 09:41 06/07/20 11:40 POC Whole Blood Glucose Pending Pending 124 MG/DL (74-106) H 130 MG/DL (74-106) H Test 06/07/20 12:02 06/07/20 16:34 White Blood Count 13.4 K/UL (4.8-10.8) H Red Blood Count 4.63 M/UL (4.20-5.40) Hemoglobin 12.9 G/DL (12.0-16.0) Hematocrit 39.4 % (37.0-47.0) Mean Corpuscular Volume 85 FL (80-99) Mean Corpuscular Hemoglobin 28.0 PG (27.0-31.0) Mean Corpuscular Hemoglobin Concent 32.8 G/DL (32.0-36.0) Red Cell Distribution Width 14.1 % (11.6-14.8) Platelet Count 402 K/UL (150-450) Mean Platelet Volume 6.1 FL (6.5-10.1) L Neutrophils (%) (Auto) % (45.0-75.0) Lymphocytes (%) (Auto) % (20.0-45.0) Monocytes (%) (Auto) % (1.0-10.0) Eosinophils (%) (Auto) % (0.0-3.0) Basophils (%) (Auto) % (0.0-2.0) Differential Total Cells Counted 100 Neutrophils % (Manual) 90 % (45-75) H Lymphocytes % (Manual) 4 % (20-45) L Monocytes % (Manual) 6 % (1-10) Eosinophils % (Manual) 0 % (0-3) Basophils % (Manual) 0 % (0-2) Band Neutrophils 0 % (0-8) Platelet Estimate Adequate Platelet Morphology Normal Anisocytosis 1+ Sodium Level 137 MMOL/L (136-145) Potassium Level 3.8 MMOL/L (3.5-5.1) Chloride Level 98 MMOL/L (98-107) Carbon Dioxide Level 28 MMOL/L (21-32) Anion Gap 11 mmol/L (5-15) Blood Urea Nitrogen 60 mg/dL (7-18) H Creatinine 1.1 MG/DL (0.55-1.30) Estimat Glomerular Filtration Rate 50.5 mL/min (>60) Glucose Level 124 MG/DL (74-106) H Calcium Level 8.7 MG/DL (8.5-10.1) POC Whole Blood Glucose 86 MG/DL (74-106) Objective HEAD AND NECK: No JVD. On Venturi Mask LUNGS: Decreased breath sounds. CARDIOVASCULAR: Regular S1 and S2 and tachycardic. ABDOMEN: Soft. EXTREMITIES: No pitting edema. Cristian England MD Jun 07, 2020 18:03
--- NOTE | 2020-06-07 19:28 | General Progress Note ---
Subjective Allergies: Coded Allergies: No Known Allergies (Unverified , 05/19/20) Subjective above noted NPO again, due to poor resp status Objective Last 24 Hour Vital Signs Date Time Temp Pulse Resp B/P (MAP) Pulse Ox O2 Delivery O2 Flow Rate FiO2 06/07/20 19:00 100 Bi-Pap 100 06/07/20 19:00 87 37 100 100 06/07/20 18:52 98/69 (79) 06/07/20 16:09 100 06/07/20 16:08 88 06/07/20 16:05 Bi-pap Bi-pap 06/07/20 16:00 Bi-pap Bi-pap 06/07/20 16:00 100 06/07/20 16:00 96.6 89 26 86/59 (68) 100 06/07/20 15:09 89 29 96 100 06/07/20 12:00 100 06/07/20 12:00 94 06/07/20 12:00 Bi-pap Bi-pap 06/07/20 12:00 96.4 94 24 89/60 (70) 100 06/07/20 11:32 93 35 98 100 06/07/20 08:00 Bi-pap Bi-pap 06/07/20 08:00 Bi-pap Bi-pap 06/07/20 08:00 93 06/07/20 08:00 98.0 94 22 92/55 (67) 99 06/07/20 08:00 100 06/07/20 08:00 100 06/07/20 08:00 98.0 94 22 92/55 (67) 99 06/07/20 07:26 92 29 98 100 06/07/20 07:24 98 Bi-Pap 100 06/07/20 04:00 98.0 94 22 112/63 (79) 99 06/07/20 04:00 Bi-pap 15.0 06/07/20 04:00 100 06/07/20 03:48 92 06/07/20 03:04 94 21 98 100 06/07/20 00:00 97.9 96 24 96/58 (71) 99 06/07/20 00:00 Bi-pap 15.0 06/07/20 00:00 100 06/06/20 23:58 97 06/06/20 23:16 94 18 99 100 10/10/20 20:00 97.7 98 24 90/56 (67) 100 06/06/20 20:00 100 06/06/20 20:00 Bi-pap 15.0 06/06/20 19:28 95 Intake and Output 06/06/20 06/07/20 19:00 07:00 Intake Total 240 ml Output Total 400 ml 375 ml Balance -160 ml -375 ml Intake Oral 240 ml Output Urine Total 400 ml 375 ml Laboratory Tests 06/06/20 19:44: POC Whole Blood Glucose [Pending] 06/07/20 05:01: POC Whole Blood Glucose [Pending] 06/07/20 09:41: POC Whole Blood Glucose 124H 06/07/20 11:40: POC Whole Blood Glucose 130H 06/07/20 12:02: White Blood Count 13.4H, Red Blood Count 4.63, Hemoglobin 12.9, Hematocrit 39.4, Mean Corpuscular Volume 85, Mean Corpuscular Hemoglobin 28.0, Mean Corpuscular Hemoglobin Concent 32.8, Red Cell Distribution Width 14.1, Platelet Count 402, Mean Platelet Volume 6.1L, Neutrophils (%) (Auto) , Lymphocytes (%) (Auto) , Monocytes (%) (Auto) , Eosinophils (%) (Auto) , Basophils (%) (Auto) , Differential Total Cells Counted 100, Neutrophils % (Manual) 90H, Lymphocytes % (Manual) 4L, Monocytes % (Manual) 6, Eosinophils % (Manual) 0, Basophils % (Manual) 0, Band Neutrophils 0, Platelet Estimate Adequate, Platelet Morphology Normal, Anisocytosis 1+, Sodium Level 137, Potassium Level 3.8, Chloride Level 98, Carbon Dioxide Level 28, Anion Gap 11, Blood Urea Nitrogen 60H, Creatinine 1.1, Estimat Glomerular Filtration Rate 50.5, Glucose Level 124H, Calcium Level 8.7 06/07/20 16:34: POC Whole Blood Glucose 86 Height (Feet): 5 Height (Inches): 0.00 Weight (Pounds): 100 Objective NCAT supple Coarse BS RR abd soft no edema Assessment/Plan Status: progressing Assessment/Plan: Assessment - Respiratory failure - BIPAP - pleural effusions, s/p thoracentesis - Renal failure - resolved - Elevated troponin - HTN - CML Recommendations - Pulmonary management - aspiration precautions - resume PO once OK with pulmonary - follow labs and exam Antonio Ratliff MD Jun 07, 2020 19:28
--- NOTE | 2020-06-07 20:35 | General Progress Note ---
Subjective ROS Limited/Unobtainable: Yes Allergies: Coded Allergies: No Known Allergies (Unverified , 05/19/20) Objective Last 24 Hour Vital Signs Date Time Temp Pulse Resp B/P (MAP) Pulse Ox O2 Delivery O2 Flow Rate FiO2 06/07/20 19:00 100 Bi-Pap 100 06/07/20 19:00 87 37 100 100 06/07/20 18:52 98/69 (79) 06/07/20 16:09 100 06/07/20 16:08 88 06/07/20 16:05 Bi-pap Bi-pap 06/07/20 16:00 Bi-pap Bi-pap 06/07/20 16:00 100 06/07/20 16:00 96.6 89 26 86/59 (68) 100 06/07/20 15:09 89 29 96 100 06/07/20 12:00 100 06/07/20 12:00 94 06/07/20 12:00 Bi-pap Bi-pap 06/07/20 12:00 96.4 94 24 89/60 (70) 100 06/07/20 11:32 93 35 98 100 06/07/20 08:00 Bi-pap Bi-pap 06/07/20 08:00 Bi-pap Bi-pap 06/07/20 08:00 93 06/07/20 08:00 98.0 94 22 92/55 (67) 99 06/07/20 08:00 100 06/07/20 08:00 100 06/07/20 08:00 98.0 94 22 92/55 (67) 99 06/07/20 07:26 92 29 98 100 06/07/20 07:24 98 Bi-Pap 100 06/07/20 04:00 98.0 94 22 112/63 (79) 99 06/07/20 04:00 Bi-pap 15.0 06/07/20 04:00 100 06/07/20 03:48 92 06/07/20 03:04 94 21 98 100 06/07/20 00:00 97.9 96 24 96/58 (71) 99 06/07/20 00:00 Bi-pap 15.0 06/07/20 00:00 100 06/06/20 23:58 97 06/06/20 23:16 94 18 99 100 Intake and Output 06/06/20 06/07/20 19:00 07:00 Intake Total 240 ml Output Total 400 ml 375 ml Balance -160 ml -375 ml Intake Oral 240 ml Output Urine Total 400 ml 375 ml Laboratory Tests 06/07/20 05:01: POC Whole Blood Glucose [Pending] 06/07/20 09:41: POC Whole Blood Glucose 124H 06/07/20 11:40: POC Whole Blood Glucose 130H 06/07/20 12:02: White Blood Count 13.4H, Red Blood Count 4.63, Hemoglobin 12.9, Hematocrit 39.4, Mean Corpuscular Volume 85, Mean Corpuscular Hemoglobin 28.0, Mean Corpuscular Hemoglobin Concent 32.8, Red Cell Distribution Width 14.1, Platelet Count 402, Mean Platelet Volume 6.1L, Neutrophils (%) (Auto) , Lymphocytes (%) (Auto) , Monocytes (%) (Auto) , Eosinophils (%) (Auto) , Basophils (%) (Auto) , Differential Total Cells Counted 100, Neutrophils % (Manual) 90H, Lymphocytes % (Manual) 4L, Monocytes % (Manual) 6, Eosinophils % (Manual) 0, Basophils % (Manual) 0, Band Neutrophils 0, Platelet Estimate Adequate, Platelet Morphology Normal, Anisocytosis 1+, Sodium Level 137, Potassium Level 3.8, Chloride Level 98, Carbon Dioxide Level 28, Anion Gap 11, Blood Urea Nitrogen 60H, Creatinine 1.1, Estimat Glomerular Filtration Rate 50.5, Glucose Level 124H, Calcium Level 8.7 06/07/20 16:34: POC Whole Blood Glucose 86 Height (Feet): 5 Height (Inches): 0.00 Weight (Pounds): 100 Assessment/Plan Problem List: (1) Leukemia ICD Codes: C95.90 - Leukemia, unspecified not having achieved remission SNOMED: 09106720 (2) Bilateral pleural effusion ICD Codes: J90 - Pleural effusion, not elsewhere classified SNOMED: 019262882 Status: progressing Assessment/Plan: pleural effusion resp insuff on bipap s/p thoracocentesis for recurrent pleural effusion npo on continious oxygen afebrile leukemia Tiara Jara MD Jun 07, 2020 20:35
--- NOTE | 2020-06-07 23:31 | Psych Consult Progress Note ---
Psychiatry Progress Note Psychiatry Progress Note Medications Current Medications Medications (Trade) Dose Ordered Sig/Jennie Route PRN Reason Start Time Stop Time Status Last Admin Dose Admin Acetaminophen (Tylenol) 500 mg Q6H PRN ORAL Mild Pain (Pain Scale 1-3) 05/19/20 16:45 06/18/20 16:44 Allopurinol (allopurinoL) 300 mg DAILY ORAL 06/06/20 11:00 07/06/20 10:59 06/06/20 11:00 Clonidine HCl (Catapres Tab) 0.1 mg Q4H PRN ORAL SBP > 170 05/24/20 13:15 08/22/20 13:14 Dexamethasone Sodium Phosphate (Decadron 4mg/ml vial) 4 mg DAILY IVP 06/07/20 12:30 09/05/20 12:29 06/07/20 12:49 Dextrose (Dextrose 50%) 25 ml Q30M PRN IV Hypoglycemia 06/05/20 06:30 09/03/20 06:29 Dextrose (Dextrose 50%) 50 ml Q30M PRN IV Hypoglycemia 06/05/20 06:30 09/03/20 06:29 Docusate Sodium (Colace) 100 mg TWICE A DAY ORAL 05/22/20 18:00 06/21/20 17:59 06/06/20 17:46 Enoxaparin Sodium (Lovenox) 40 mg DAILY SUBQ 06/02/20 09:00 08/31/20 08:59 06/07/20 09:48 Insulin Aspart (NovoLOG) BEFORE MEALS AND HS SUBQ 06/05/20 06:30 09/03/20 06:29 06/06/20 11:45 Insulin Aspart (NovoLOG) 4 units NOVOTIAC SUBQ 06/05/20 06:30 09/03/20 06:29 06/06/20 11:46 Insulin Detemir (Levemir) 12 units DAILY SUBQ 06/05/20 09:00 09/03/20 08:59 06/07/20 09:50 Metolazone (Zaroxolyn) 5 mg DAILY ORAL 06/01/20 12:00 07/01/20 11:59 06/07/20 09:00 Mirtazapine (Remeron) 7.5 mg BEDTIME ORAL 06/02/20 21:00 1/4/21 20:59 06/06/20 20:01 Pantoprazole (Protonix) 40 mg DAILY IVP 06/08/20 09:00 07/08/20 08:59 Neurological/Psychiatric: Reports: anxiety, depressed, emotional problems; Denies: no symptoms, headache, numbness, paresthesia, pre-existing deficit, seizure, tingling, tremors, weakness, other Allergies: Coded Allergies: No Known Allergies (Unverified , 05/19/20) Objective Data Height (Feet): 5 Height (Inches): 0.00 Weight (Pounds): 100 General Appearance: no apparent distress Additional Comments: alert and oriented times self, place, and situation. Mood is anxious. Affect is blunted, congruent with mood. Thought process is concrete. Thought content, there is no suicidal or homicidal ideation. Cognition is intact. Insight and judgment are fair. ASSESSMENT: Hammond I Anxiety disorder. Insomnia. Hammond II Deferred. Hammond III As above. Hammond IV Low. Hammond V 50. PLAN: 1. Remeron 7.5 mg at bedtime. 2. Provide the patient with reality orientation and supportive therapy. Assessment/Plan Status: progressing Assessment/Plan: Hammond I Anxiety disorder. Insomnia. Hammond II Deferred. Hammond III As above. Hammond IV Low. Hammond V 50. PLAN: 1. Remeron 7.5 mg at bedtime. 2. Provide the patient with reality orientation and supportive therapy. Anahy Avendano MD Jun 07, 2020 23:31
[2020-06-08] VITALS: BP 92/63
[2020-06-08 04:00] VITALS: BP 92/63
[2020-06-08] MEDS: NovoLOG Insulin Flexpen SUBQ SCH ×7 (05:31→20:37)
[2020-06-08 06:02] LABS: HEMATOCRIT 39.4 % (37.0-47.0); MEAN CORPUSCULAR VOLUME 85 FL (80-99); PLATELET COUNT 391 K/UL (150-450); RED BLOOD COUNT 4.61 M/UL (4.20-5.40); RED CELL DISTRIBUTION WIDTH 14.3 % (11.6-14.8); WHITE BLOOD COUNT 11.2 K/UL (4.8-10.8)
[2020-06-08 06:37] LABS: ALANINE AMINOTRANSFERASE 9 U/L (12-78); ALBUMIN/GLOBULIN RATIO 0.5 (1.0-2.7); ALKALINE PHOSPHATASE 51 U/L (46-116); ASPARTATE AMINO TRANSFERASE 31 U/L (15-37); BILIRUBIN,TOTAL 0.3 MG/DL (0.2-1.0); BLOOD UREA NITROGEN 65 mg/dL (7-18); CARBON DIOXIDE 32 MMOL/L (21-32); CHLORIDE 100 MMOL/L (98-107); CREATININE 1.2 MG/DL (0.55-1.30); PHOSPHORUS 5.3 MG/DL (2.5-4.9); POTASSIUM 4.1 MMOL/L (3.5-5.1); SODIUM 139 MMOL/L (136-145)
--- NOTE | 2020-06-08 06:56 | Hematology/Onc Progress Note ---
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, [facility] --> at this time STOP desatanib (also is the likely cause of pleural effusions) --> no is s/p thora per pulm/cards --> 06/04 started low dose dexamethasone for immune response suppression --> wbc trend 18->7->10 --> hgb 11.5->12->13 --> ABX ceftriaxone-->off --> bipap, thora prn, may need ct tube --> needs molecular and cytogenectic response for CML, f/u oncologist outpatient # Bilateral pleural effusion --> as per pulm, is on bipap --> thora as needed --> repeat thora prn 05/29 --> pleural fluid is neg for malignancy --> dr. Joseph has accessed --> imaging q2-3 days # HTN --> hydralazine and lisinopril --> sbp goal <140 # Dehydration --> goal of euvolemia # Elevated ddimer --> duplex lower ext r/o dvt==>neg # Dvt ppx lovenox sq Appreciate consultation and zachariah RN Subjective HEENT: Denies: no symptoms, eye pain, blurred vision, tearing, double vision, ear pain, ear discharge, nose pain, nose congestion, throat pain, throat swelling, mouth pain, mouth swelling, other Cardiovascular: Denies: no symptoms, chest pain, edema, irregular heart rate, lightheadedness, palpitations, syncope, other Respiratory: Denies: no symptoms, cough, shortness of breath, SOB with excertion, SOB at rest, sputum, wheezing, other Genitourinary: Denies: no symptoms, burning, discharge, frequency, flank pain, hematuria, incontinence, pain, urgency, other Neurologic/Psychiatric: Denies: no symptoms, anxiety, depressed, emotional problems, headache, numbness, paresthesia, pre-existing deficit, seizure, tingling, tremors, weakness, other Endocrine: Denies: no symptoms, excessive sweating, flushing, intolerance to cold, intolerance to heat, increased hunger, increased thirst, increased urine, unexplained weight gain, unexplained weight loss, other Hematologic/Lymphatic: Denies: no symptoms, anemia, easy bleeding, easy bruising, adenopathy, other Allergies: Coded Allergies: No Known Allergies (Unverified , 05/19/20) Subjective 05/21 labs are noted, no bleeding, with pleural effusions due to desatanbib, s/p thora 05/22 labs are noted, no bleeding, on bipap, i dw her today to stop her med at once 05/24 wbc is improved, continue on ctx for one more day per id, bipap 05/26 have ordered for repeat cxr this am to reeval pleural effusions, labs noted 05/27 with b/l pleural effusions, aware from pulm, thora prn 05/28 has been refusing scds, thus will start lovenox today, breathing better s/p thora 05/29 with nonrebreather, for thora today, no night sweats, meds noted 05/31 remains on bipap, meds reviewed, off desatanib, worse effusion r>l 06/01 on bipap this am, labs pending for am 06/02 unable to wean off facemask, requiring it, will dw sister today 06/03 labs reviewed, meds noted, continues to be bipap support 06/04 no aspiration, is comfortable, meds reviewed, no bleeding 06/05 dw pulm yes, may need ct surg eval, chest tube, started steriods 06/06: labs reviewed no acute events overnight. 06/07 comfortable, no bleeding, meds reviewed, is on bipap still 06/08 labs reviewed, imaging noted, is on bipap this am Objective Objective Current Medications Medications (Trade) Dose Ordered Sig/Jennie Route PRN Reason Start Time Stop Time Status Last Admin Dose Admin Acetaminophen (Tylenol) 500 mg Q6H PRN ORAL Mild Pain (Pain Scale 1-3) 05/19/20 16:45 06/18/20 16:44 Allopurinol (allopurinoL) 300 mg DAILY ORAL 06/06/20 11:00 07/06/20 10:59 06/06/20 11:00 Clonidine HCl (Catapres Tab) 0.1 mg Q4H PRN ORAL SBP > 170 05/24/20 13:15 08/22/20 13:14 Dexamethasone Sodium Phosphate (Decadron 4mg/ml vial) 4 mg DAILY IVP 06/07/20 12:30 09/05/20 12:29 06/07/20 12:49 Dextrose (Dextrose 50%) 25 ml Q30M PRN IV Hypoglycemia 06/05/20 06:30 09/03/20 06:29 Dextrose (Dextrose 50%) 50 ml Q30M PRN IV Hypoglycemia 06/05/20 06:30 09/03/20 06:29 Docusate Sodium (Colace) 100 mg TWICE A DAY ORAL 05/22/20 18:00 06/21/20 17:59 06/06/20 17:46 Enoxaparin Sodium (Lovenox) 40 mg DAILY SUBQ 06/02/20 09:00 08/31/20 08:59 06/07/20 09:48 Insulin Aspart (NovoLOG) BEFORE MEALS AND HS SUBQ 06/05/20 06:30 09/03/20 06:29 06/06/20 11:45 Insulin Aspart (NovoLOG) 4 units NOVOTIAC SUBQ 06/05/20 06:30 09/03/20 06:29 06/06/20 11:46 Insulin Detemir (Levemir) 12 units DAILY SUBQ 06/05/20 09:00 09/03/20 08:59 06/07/20 09:50 Metolazone (Zaroxolyn) 5 mg DAILY ORAL 06/01/20 12:00 07/01/20 11:59 06/07/20 09:00 Mirtazapine (Remeron) 7.5 mg BEDTIME ORAL 06/02/20 21:00 08/31/20 20:59 06/06/20 20:01 Pantoprazole (Protonix) 40 mg DAILY IVP 06/08/20 09:00 07/08/20 08:59 Last 24 Hour Vital Signs Date Time Temp Pulse Resp B/P (MAP) Pulse Ox O2 Delivery O2 Flow Rate FiO2 06/08/20 04:00 Bi-pap Bi-pap 06/08/20 04:00 100 06/08/20 04:00 88 06/08/20 04:00 97.3 87 20 92/63 (73) 100 06/08/20 02:45 92 32 100 100 06/08/20 00:00 96.8 89 22 92/63 (73) 100 06/08/20 00:00 95 06/08/20 00:00 85 06/08/20 00:00 Bi-pap Bi-pap 06/07/20 22:58 90 30 100 100 06/07/20 20:00 Bi-pap Bi-pap 06/07/20 20:00 97.8 89 21 102/64 (77) 100 06/07/20 20:00 86 06/07/20 19:00 100 Bi-Pap 100 06/07/20 19:00 87 37 100 100 06/07/20 18:52 98/69 (79) 06/07/20 16:09 100 06/07/20 16:08 88 06/07/20 16:05 Bi-pap Bi-pap 06/07/20 16:00 Bi-pap Bi-pap 06/07/20 16:00 100 06/07/20 16:00 96.6 89 26 86/59 (68) 100 06/07/20 15:09 89 29 96 100 06/07/20 12:00 100 06/07/20 12:00 94 06/07/20 12:00 Bi-pap Bi-pap 06/07/20 12:00 96.4 94 24 89/60 (70) 100 06/07/20 11:32 93 35 98 100 06/07/20 08:00 Bi-pap Bi-pap 06/07/20 08:00 Bi-pap Bi-pap 06/07/20 08:00 93 06/07/20 08:00 98.0 94 22 92/55 (67) 99 06/07/20 08:00 100 06/07/20 08:00 100 06/07/20 08:00 98.0 94 22 92/55 (67) 99 06/07/20 07:26 92 29 98 100 06/07/20 07:24 98 Bi-Pap 100 06/07/20 04:00 98.0 94 22 112/63 (79) 99 06/07/20 04:00 Bi-pap 15.0 06/07/20 04:00 100 06/07/20 03:48 92 06/07/20 03:04 94 21 98 100 06/07/20 00:00 97.9 96 24 96/58 (71) 99 06/07/20 00:00 Bi-pap 15.0 06/07/20 00:00 100 06/06/20 23:58 97 06/06/20 23:16 94 18 99 100 06/06/20 20:00 97.7 98 24 90/56 (67) 100 06/06/20 20:00 100 06/06/20 20:00 Bi-pap 15.0 06/06/20 19:28 95 06/06/20 19:15 103 34 98 100 06/06/20 19:14 98 Bi-Pap 100 06/06/20 16:00 87 06/06/20 16:00 100 06/06/20 16:00 96.6 98 31 136/59 (84) 99 06/06/20 16:00 Bi-pap 15.0 06/06/20 15:53 101 36 98 100 06/06/20 12:00 97.0 86 24 133/70 (91) 98 06/06/20 12:00 Bi-pap 15.0 06/06/20 12:00 100 06/06/20 12:00 103 06/06/20 11:57 103 39 98 100 06/06/20 09:52 100 32 97 100 06/06/20 09:38 95 Non-Rebreather 15.0 100 06/06/20 08:00 15.0 06/06/20 08:00 96.4 93 24 103/62 (76) 94 06/06/20 08:00 Non-Rebreather 15.0 06/06/20 08:00 102 Intake and Output 06/07/20 06/08/20 19:00 07:00 Output Total 400 ml 300 ml Balance -400 ml -300 ml Output Urine Total 400 ml 300 ml Labs Test 06/05/20 11:51 06/05/20 17:32 06/05/20 20:09 06/06/20 03:00 POC Whole Blood Glucose 103 MG/DL (74-106) 142 MG/DL (74-106) White Blood Count 14.7 K/UL (4.8-10.8) Red Blood Count 4.37 M/UL (4.20-5.40) Hemoglobin 12.5 G/DL (12.0-16.0) Hematocrit 37.3 % (37.0-47.0) Mean Corpuscular Volume 85 FL (80-99) Mean Corpuscular Hemoglobin 28.6 PG (27.0-31.0) Mean Corpuscular Hemoglobin Concent 33.5 G/DL (32.0-36.0) Red Cell Distribution Width 13.9 % (11.6-14.8) Platelet Count 401 K/UL (150-450) Mean Platelet Volume 5.9 FL (6.5-10.1) Neutrophils (%) (Auto) % (45.0-75.0) Lymphocytes (%) (Auto) % (20.0-45.0) Monocytes (%) (Auto) % (1.0-10.0) Eosinophils (%) (Auto) % (0.0-3.0) Basophils (%) (Auto) % (0.0-2.0) Differential Total Cells Counted 100 Neutrophils % (Manual) 81 % (45-75) Lymphocytes % (Manual) 13 % (20-45) Monocytes % (Manual) 5 % (1-10) Eosinophils % (Manual) 1 % (0-3) Basophils % (Manual) 0 % (0-2) Band Neutrophils 0 % (0-8) Platelet Estimate Adequate Platelet Morphology Normal Red Blood Cell Morphology Polychromasia 1+ Sodium Level 138 MMOL/L (136-145) Potassium Level 3.8 MMOL/L (3.5-5.1) Chloride Level 100 MMOL/L (98-107) Carbon Dioxide Level 32 MMOL/L (21-32) Anion Gap 6 mmol/L (5-15) Blood Urea Nitrogen 51 mg/dL (7-18) Creatinine 1.0 MG/DL (0.55-1.30) Estimat Glomerular Filtration Rate 56.4 mL/min (>60) Glucose Level 77 MG/DL (74-106) Uric Acid 9.6 MG/DL (2.6-7.2) Calcium Level 8.4 MG/DL (8.5-10.1) Phosphorus Level 3.0 MG/DL (2.5-4.9) Magnesium Level 2.3 MG/DL (1.8-2.4) Total Bilirubin 0.2 MG/DL (0.2-1.0) Aspartate Amino Transf (AST/SGOT) 32 U/L (15-37) Alanine Aminotransferase (ALT/SGPT) 10 U/L (12-78) Alkaline Phosphatase 55 U/L (46-116) C-Reactive Protein, Quantitative 5.3 mg/dL (0.00-0.90) Pro-B-Type Natriuretic Peptide 9999 pg/mL (0-125) Total Protein 5.8 G/DL (6.4-8.2) Albumin 1.9 G/DL (3.4-5.0) Globulin 3.9 g/dL Albumin/Globulin Ratio 0.5 (1.0-2.7) Test 06/06/20 05:23 06/06/20 11:34 06/06/20 19:44 06/07/20 05:01 POC Whole Blood Glucose 157 MG/DL (74-106) Test 06/07/20 09:41 06/07/20 11:40 06/07/20 12:02 06/07/20 16:34 POC Whole Blood Glucose 124 MG/DL (74-106) 130 MG/DL (74-106) 86 MG/DL (74-106) White Blood Count 13.4 K/UL (4.8-10.8) Red Blood Count 4.63 M/UL (4.20-5.40) Hemoglobin 12.9 G/DL (12.0-16.0) Hematocrit 39.4 % (37.0-47.0) Mean Corpuscular Volume 85 FL (80-99) Mean Corpuscular Hemoglobin 28.0 PG (27.0-31.0) Mean Corpuscular Hemoglobin Concent 32.8 G/DL (32.0-36.0) Red Cell Distribution Width 14.1 % (11.6-14.8) Platelet Count 402 K/UL (150-450) Mean Platelet Volume 6.1 FL (6.5-10.1) Neutrophils (%) (Auto) % (45.0-75.0) Lymphocytes (%) (Auto) % (20.0-45.0) Monocytes (%) (Auto) % (1.0-10.0) Eosinophils (%) (Auto) % (0.0-3.0) Basophils (%) (Auto) % (0.0-2.0) Differential Total Cells Counted 100 Neutrophils % (Manual) 90 % (45-75) Lymphocytes % (Manual) 4 % (20-45) Monocytes % (Manual) 6 % (1-10) Eosinophils % (Manual) 0 % (0-3) Basophils % (Manual) 0 % (0-2) Band Neutrophils 0 % (0-8) Platelet Estimate Adequate Platelet Morphology Normal Anisocytosis 1+ Sodium Level 137 MMOL/L (136-145) Potassium Level 3.8 MMOL/L (3.5-5.1) Chloride Level 98 MMOL/L (98-107) Carbon Dioxide Level 28 MMOL/L (21-32) Anion Gap 11 mmol/L (5-15) Blood Urea Nitrogen 60 mg/dL (7-18) Creatinine 1.1 MG/DL (0.55-1.30) Estimat Glomerular Filtration Rate 50.5 mL/min (>60) Glucose Level 124 MG/DL (74-106) Calcium Level 8.7 MG/DL (8.5-10.1) Test 06/08/20 04:41 06/08/20 05:27 White Blood Count 11.2 K/UL (4.8-10.8) Red Blood Count 4.61 M/UL (4.20-5.40) Hemoglobin 13.0 G/DL (12.0-16.0) Hematocrit 39.4 % (37.0-47.0) Mean Corpuscular Volume 85 FL (80-99) Mean Corpuscular Hemoglobin 28.2 PG (27.0-31.0) Mean Corpuscular Hemoglobin Concent 33.0 G/DL (32.0-36.0) Red Cell Distribution Width 14.3 % (11.6-14.8) Platelet Count 391 K/UL (150-450) Mean Platelet Volume 5.9 FL (6.5-10.1) Neutrophils (%) (Auto) % (45.0-75.0) Lymphocytes (%) (Auto) % (20.0-45.0) Monocytes (%) (Auto) % (1.0-10.0) Eosinophils (%) (Auto) % (0.0-3.0) Basophils (%) (Auto) % (0.0-2.0) Sodium Level 139 MMOL/L (136-145) Potassium Level 4.1 MMOL/L (3.5-5.1) Chloride Level 100 MMOL/L (98-107) Carbon Dioxide Level 32 MMOL/L (21-32) Blood Urea Nitrogen 65 mg/dL (7-18) Creatinine 1.2 MG/DL (0.55-1.30) Estimat Glomerular Filtration Rate 45.7 mL/min (>60) Glucose Level 76 MG/DL (74-106) Calcium Level 9.0 MG/DL (8.5-10.1) Phosphorus Level 5.3 MG/DL (2.5-4.9) Magnesium Level 2.6 MG/DL (1.8-2.4) Total Bilirubin 0.3 MG/DL (0.2-1.0) Aspartate Amino Transf (AST/SGOT) 31 U/L (15-37) Alanine Aminotransferase (ALT/SGPT) 9 U/L (12-78) Alkaline Phosphatase 51 U/L (46-116) C-Reactive Protein, Quantitative 8.5 mg/dL (0.00-0.90) Pro-B-Type Natriuretic Peptide 60841 pg/mL (0-125) Total Protein 5.7 G/DL (6.4-8.2) Albumin 2.0 G/DL (3.4-5.0) Globulin 3.7 g/dL Albumin/Globulin Ratio 0.5 (1.0-2.7) POC Whole Blood Glucose 86 MG/DL (74-106) Height (Feet): 5 Height (Inches): 0.00 Weight (Pounds): 100 Dionicio Higgins MD Jun 08, 2020 06:56
[2020-06-08 08:00] VITALS: BP 102/70
[2020-06-08] MEDS: Levemir Flexpen SUBQ SCH (08:40)
[2020-06-08] MEDS: Docusate 100mg cap ORAL SCH ×2 (08:40→17:25)
[2020-06-08] MEDS: Pantoprazole Inj IVP SCH (08:40)
[2020-06-08] MEDS: Enoxaparin 40mg Inj SUBQ SCH (08:41)
--- NOTE | 2020-06-08 09:49 | Infectious Diseases Prog Note ---
Assessment/Plan Assessment/Plan IMPRESSION: Leukocytosis, steroid related systemic inflammatory response syndrome or sepsis, Recurrent pleural effusion, CML, Accelerated hypertension, Elevation of troponin. Hypoxemia Hyperglycemia Anxiety disorder RECOMMENDATION: Observe off antibiotic Subjective ROS Limited/Unobtainable: Yes Constitutional: Reports: no symptoms Respiratory: Reports: shortness of breath Gastrointestinal/Abdominal: Reports: no symptoms Allergies: Coded Allergies: No Known Allergies (Unverified , 05/19/20) Objective Last 24 Hour Vital Signs Date Time Temp Pulse Resp B/P (MAP) Pulse Ox O2 Delivery O2 Flow Rate FiO2 06/08/20 08:00 100 06/08/20 08:00 97.3 92 20 102/70 (81) 100 06/08/20 07:10 100 Bi-Pap 100 06/08/20 07:10 89 30 100 100 06/08/20 04:00 Bi-pap Bi-pap 06/08/20 04:00 100 06/08/20 04:00 88 06/08/20 04:00 97.3 87 20 92/63 (73) 100 06/08/20 02:45 92 32 100 100 06/08/20 00:00 96.8 89 22 92/63 (73) 100 06/08/20 00:00 95 06/08/20 00:00 85 06/08/20 00:00 Bi-pap Bi-pap 06/07/20 22:58 90 30 100 100 06/07/20 20:00 Bi-pap Bi-pap 06/07/20 20:00 97.8 89 21 102/64 (77) 100 06/07/20 20:00 86 06/07/20 19:00 100 Bi-Pap 100 06/07/20 19:00 87 37 100 100 06/07/20 18:52 98/69 (79) 06/07/20 16:09 100 06/07/20 16:08 88 06/07/20 16:05 Bi-pap Bi-pap 06/07/20 16:00 Bi-pap Bi-pap 06/07/20 16:00 100 06/07/20 16:00 96.6 89 26 86/59 (68) 100 06/07/20 15:09 89 29 96 100 06/07/20 12:00 100 06/07/20 12:00 94 06/07/20 12:00 Bi-pap Bi-pap 06/07/20 12:00 96.4 94 24 89/60 (70) 100 06/07/20 11:32 93 35 98 100 Height (Feet): 5 Height (Inches): 0.00 Weight (Pounds): 100 HEENT: mucous membranes moist Respiratory/Chest: decreased breath sounds, other - on BIPAP Cardiovascular: normal rate Abdomen: soft, non tender Extremities: no edema Neurologic/Psychiatric: alert, oriented x 3, responsive Laboratory Tests Test 06/07/20 11:40 06/07/20 12:02 06/07/20 16:34 06/08/20 04:41 POC Whole Blood Glucose 130 MG/DL (74-106) H 86 MG/DL (74-106) White Blood Count 13.4 K/UL (4.8-10.8) H 11.2 K/UL (4.8-10.8) H Red Blood Count 4.63 M/UL (4.20-5.40) 4.61 M/UL (4.20-5.40) Hemoglobin 12.9 G/DL (12.0-16.0) 13.0 G/DL (12.0-16.0) Hematocrit 39.4 % (37.0-47.0) 39.4 % (37.0-47.0) Mean Corpuscular Volume 85 FL (80-99) 85 FL (80-99) Mean Corpuscular Hemoglobin 28.0 PG (27.0-31.0) 28.2 PG (27.0-31.0) Mean Corpuscular Hemoglobin Concent 32.8 G/DL (32.0-36.0) 33.0 G/DL (32.0-36.0) Red Cell Distribution Width 14.1 % (11.6-14.8) 14.3 % (11.6-14.8) Platelet Count 402 K/UL (150-450) 391 K/UL (150-450) Mean Platelet Volume 6.1 FL (6.5-10.1) L 5.9 FL (6.5-10.1) L Neutrophils (%) (Auto) % (45.0-75.0) % (45.0-75.0) Lymphocytes (%) (Auto) % (20.0-45.0) % (20.0-45.0) Monocytes (%) (Auto) % (1.0-10.0) % (1.0-10.0) Eosinophils (%) (Auto) % (0.0-3.0) % (0.0-3.0) Basophils (%) (Auto) % (0.0-2.0) % (0.0-2.0) Differential Total Cells Counted 100 Neutrophils % (Manual) 90 % (45-75) H Lymphocytes % (Manual) 4 % (20-45) L Monocytes % (Manual) 6 % (1-10) Eosinophils % (Manual) 0 % (0-3) Basophils % (Manual) 0 % (0-2) Band Neutrophils 0 % (0-8) Platelet Estimate Adequate Platelet Morphology Normal Anisocytosis 1+ Sodium Level 137 MMOL/L (136-145) 139 MMOL/L (136-145) Potassium Level 3.8 MMOL/L (3.5-5.1) 4.1 MMOL/L (3.5-5.1) Chloride Level 98 MMOL/L (98-107) 100 MMOL/L (98-107) Carbon Dioxide Level 28 MMOL/L (21-32) 32 MMOL/L (21-32) Anion Gap 11 mmol/L (5-15) Blood Urea Nitrogen 60 mg/dL (7-18) H 65 mg/dL (7-18) H Creatinine 1.1 MG/DL (0.55-1.30) 1.2 MG/DL (0.55-1.30) Estimat Glomerular Filtration Rate 50.5 mL/min (>60) 45.7 mL/min (>60) Glucose Level 124 MG/DL (74-106) H 76 MG/DL (74-106) Calcium Level 8.7 MG/DL (8.5-10.1) 9.0 MG/DL (8.5-10.1) Phosphorus Level 5.3 MG/DL (2.5-4.9) H Magnesium Level 2.6 MG/DL (1.8-2.4) H Total Bilirubin 0.3 MG/DL (0.2-1.0) Aspartate Amino Transf (AST/SGOT) 31 U/L (15-37) Alanine Aminotransferase (ALT/SGPT) 9 U/L (12-78) L Alkaline Phosphatase 51 U/L (46-116) C-Reactive Protein, Quantitative 8.5 mg/dL (0.00-0.90) H Pro-B-Type Natriuretic Peptide 70061 pg/mL (0-125) H Total Protein 5.7 G/DL (6.4-8.2) L Albumin 2.0 G/DL (3.4-5.0) L Globulin 3.7 g/dL Albumin/Globulin Ratio 0.5 (1.0-2.7) L Test 06/08/20 05:27 06/08/20 08:36 POC Whole Blood Glucose 86 MG/DL (74-106) Pending Current Medications Medications (Trade) Dose Ordered Sig/Jennie Route PRN Reason Start Time Stop Time Status Last Admin Dose Admin Acetaminophen (Tylenol) 500 mg Q6H PRN ORAL Mild Pain (Pain Scale 1-3) 05/19/20 16:45 06/18/20 16:44 Allopurinol (allopurinoL) 300 mg DAILY ORAL 06/06/20 11:00 07/06/20 10:59 06/06/20 11:00 Clonidine HCl (Catapres Tab) 0.1 mg Q4H PRN ORAL SBP > 170 05/24/20 13:15 08/22/20 13:14 Dexamethasone Sodium Phosphate (Decadron 4mg/ml vial) 4 mg DAILY IVP 06/07/20 12:30 09/05/20 12:29 06/08/20 08:40 Dextrose (Dextrose 50%) 25 ml Q30M PRN IV Hypoglycemia 06/05/20 06:30 09/03/20 06:29 Dextrose (Dextrose 50%) 50 ml Q30M PRN IV Hypoglycemia 06/05/20 06:30 09/03/20 06:29 Docusate Sodium (Colace) 100 mg TWICE A DAY ORAL 05/22/20 18:00 06/21/20 17:59 06/06/20 17:46 Enoxaparin Sodium (Lovenox) 40 mg DAILY SUBQ 06/02/20 09:00 08/31/20 08:59 06/08/20 08:41 Insulin Aspart (NovoLOG) BEFORE MEALS AND HS SUBQ 06/05/20 06:30 09/03/20 06:29 06/06/20 11:45 Insulin Aspart (NovoLOG) 4 units NOVOTIAC SUBQ 06/05/20 06:30 09/03/20 06:29 06/06/20 11:46 Insulin Detemir (Levemir) 12 units DAILY SUBQ 06/05/20 09:00 09/03/20 08:59 06/07/20 09:50 Metolazone (Zaroxolyn) 5 mg DAILY ORAL 06/01/20 12:00 07/01/20 11:59 06/07/20 09:00 Mirtazapine (Remeron) 7.5 mg BEDTIME ORAL 06/02/20 21:00 08/31/20 20:59 06/06/20 20:01 Pantoprazole (Protonix) 40 mg DAILY IVP 06/08/20 09:00 07/08/20 08:59 06/08/20 08:40 Timothy Pennington MD Jun 08, 2020 09:49
--- NOTE | 2020-06-08 10:53 | Pulmonology Progress Note ---
Subjective ROS Limited/Unobtainable: Yes Interval Events: Diuresing well; s/p repeat thoracentesis R side; 1.6L removed Constitutional: Reports: no symptoms HEENT: Repors: no symptoms Respiratory: Reports: dry cough Gastrointestinal/Abdominal: Reports: no symptoms Genitourinary: Reports: no symptoms Neurologic: Reports: no symptoms Musculoskeletal: Denies: pain Allergies: Coded Allergies: No Known Allergies (Unverified , 05/19/20) Objective Last 24 Hour Vital Signs Date Time Temp Pulse Resp B/P (MAP) Pulse Ox O2 Delivery O2 Flow Rate FiO2 06/08/20 08:00 Bi-pap Bi-pap 06/08/20 08:00 90 06/08/20 08:00 100 06/08/20 08:00 97.3 92 20 102/70 (81) 100 06/08/20 07:10 100 Bi-Pap 100 06/08/20 07:10 89 30 100 100 06/08/20 04:00 Bi-pap Bi-pap 06/08/20 04:00 100 06/08/20 04:00 88 06/08/20 04:00 97.3 87 20 92/63 (73) 100 06/08/20 02:45 92 32 100 100 06/08/20 00:00 96.8 89 22 92/63 (73) 100 06/08/20 00:00 95 06/08/20 00:00 85 06/08/20 00:00 Bi-pap Bi-pap 06/07/20 22:58 90 30 100 100 06/07/20 20:00 Bi-pap Bi-pap 06/07/20 20:00 97.8 89 21 102/64 (77) 100 06/07/20 20:00 86 06/07/20 19:00 100 Bi-Pap 100 06/07/20 19:00 87 37 100 100 06/07/20 18:52 98/69 (79) 06/07/20 16:09 100 06/07/20 16:08 88 06/07/20 16:05 Bi-pap Bi-pap 06/07/20 16:00 Bi-pap Bi-pap 06/07/20 16:00 100 06/07/20 16:00 96.6 89 26 86/59 (68) 100 06/07/20 15:09 89 29 96 100 06/07/20 12:00 100 06/07/20 12:00 94 06/07/20 12:00 Bi-pap Bi-pap 06/07/20 12:00 96.4 94 24 89/60 (70) 100 06/07/20 11:32 93 35 98 100 Intake and Output 06/07/20 06/08/20 19:00 07:00 Output Total 400 ml 300 ml Balance -400 ml -300 ml Output Urine Total 400 ml 300 ml General Appearance: no acute distress Respiratory: chest wall non-tender, normal breath sounds, no respiratory distr ess, no accessory muscle use, decreased breath sounds Cardiovascular: normal peripheral pulses, normal rate Abdomen: normal bowel sounds Extremities: no cyanosis, no clubbing, no edema Laboratory Tests 06/07/20 11:40: POC Whole Blood Glucose 130H 06/07/20 12:02: White Blood Count 13.4H, Red Blood Count 4.63, Hemoglobin 12.9, Hematocrit 39.4, Mean Corpuscular Volume 85, Mean Corpuscular Hemoglobin 28.0, Mean Corpuscular H emoglobin Concent 32.8, Red Cell Distribution Width 14.1, Platelet Count 402, Mean Platelet Volume 6.1L, Neutrophils (%) (Auto) , Lymphocytes (%) (Auto) , Monocytes (%) (Auto) , Eosinophils (%) (Auto) , Basophils (%) (Auto) , Different ial Total Cells Counted 100, Neutrophils % (Manual) 90H, Lymphocytes % (Manual) 4L, Monocytes % (Manual) 6, Eosinophils % (Manual) 0, Basophils % (Manual) 0, Band Neutrophils 0, Platelet Estimate Adequate, Platelet Morphology Normal, Anisocytosis 1+, Sodium Level 137, Potassium Level 3.8, Chloride Level 98, Carbon Dioxide Level 28, Anion Gap 11, Blood Urea Nitrogen 60H, Creatinine 1.1, Estimat Glomerular Filtration Rate 50.5, Glucose Level 124H, Calcium Level 8.7 06/07/20 16:34: POC Whole Blood Glucose 86 06/08/20 04:41: White Blood Count 11.2H, Red Blood Count 4.61, Hemoglobin 13.0, Hematocrit 39.4, Mean Corpuscular Volume 85, Mean Corpuscular Hemoglobin 28.2, Mean Corpuscular Hemoglobin Concent 33.0, Red Cell Distribution Width 14.3, Platelet Count 391, Mean Platelet Volume 5.9L, Neutrophils (%) (Auto) , Lymphocytes (%) (Auto) , Monocytes (%) (Auto) , Eosinophils (%) (Auto) , Basophils (%) (Auto) , Sodium Level 139, Potassium Level 4.1, Chloride Level 100, Carbon Dioxide Level 32, Blood Urea Nitrogen 65H, Creatinine 1.2, Estimat Glomerular Filtration Rate 45.7, Glucose Level 76, Calcium Level 9.0, Phosphorus Level 5.3H, Magnesium Level 2.6H, Total Bilirubin 0.3, Aspartate Amino Transf (AST/SGOT) 31, Alanine Aminotransferase (ALT/SGPT) 9L, Alkaline Phosphatase 51, C-Reactive Protein, Quantitative 8.5H, Pro-B-Type Natriuretic Peptide 52282L, Total Protein 5.7L, Albumin 2.0L, Globulin 3.7, Albumin/Globulin Ratio 0.5L 06/08/20 05:27: POC Whole Blood Glucose 86 06/08/20 08:36: POC Whole Blood Glucose [Pending] Current Medications Medications (Trade) Dose Ordered Sig/Jennie Route PRN Reason Start Time Stop Time Status Last Admin Dose Admin Acetaminophen (Tylenol) 500 mg Q6H PRN ORAL Mild Pain (Pain Scale 1-3) 05/19/20 16:45 06/18/20 16:44 Allopurinol (allopurinoL) 300 mg DAILY ORAL 06/06/20 11:00 07/06/20 10:59 06/06/20 11:00 Clonidine HCl (Catapres Tab) 0.1 mg Q4H PRN ORAL SBP > 170 05/24/20 13:15 08/22/20 13:14 Dexamethasone Sodium Phosphate (Decadron 4mg/ml vial) 4 mg DAILY IVP 06/07/20 12:30 09/05/20 12:29 06/08/20 08:40 Dextrose (Dextrose 50%) 25 ml Q30M PRN IV Hypoglycemia 06/05/20 06:30 09/03/20 06:29 Dextrose (Dextrose 50%) 50 ml Q30M PRN IV Hypoglycemia 06/05/20 06:30 09/03/20 06:29 Dextrose/Sodium Chloride 1,000 ml @ 25 mls/hr Q24H IV 06/08/20 11:30 07/08/20 11:29 UNV Docusate Sodium (Colace) 100 mg TWICE A DAY ORAL 05/22/20 18:00 06/21/20 17:59 06/06/20 17:46 Enoxaparin Sodium (Lovenox) 40 mg DAILY SUBQ 06/02/20 09:00 08/31/20 08:59 06/08/20 08:41 Insulin Aspart (NovoLOG) BEFORE MEALS AND HS SUBQ 06/05/20 06:30 09/03/20 06:29 06/06/20 11:45 Insulin Aspart (NovoLOG) 4 units NOVOTIAC SUBQ 06/05/20 06:30 09/03/20 06:29 06/06/20 11:46 Insulin Detemir (Levemir) 12 units DAILY SUBQ 06/05/20 09:00 09/03/20 08:59 06/07/20 09:50 Metolazone (Zaroxolyn) 5 mg DAILY ORAL 06/01/20 12:00 07/01/20 11:59 06/07/20 09:00 Mirtazapine (Remeron) 7.5 mg BEDTIME ORAL 06/02/20 21:00 08/31/20 20:59 06/06/20 20:01 Pantoprazole (Protonix) 40 mg DAILY IVP 06/08/20 09:00 07/08/20 08:59 06/08/20 08:40 Assessment/Plan Assessment/Plan IMPRESSION: 1. History of CML, on dasatinib. 2. Possible pneumonia. 3. Large pleural effusion, s/p B thoracentesis. 4. Hypertension. 5. Elevated D-dimer DISCUSSION: S/p Bilateral thoracentesis, CXR much improved; repeat thoracentesis R side 06/03 Now on BiPAP Seen by CTS re : Pleurex Planned for 06/09/20 Will continue diuresis Started D5NS for hypoglycemia Agree with broad-spectrum antibiotics. Michelet Hernandez Omar Syed MD Jun 08, 2020 10:53
[2020-06-08] MEDS ORDERED: D5NS 1,000 ML IV SCH (11:30)
[2020-06-08 12:00] VITALS: BP 97/64
--- NOTE | 2020-06-08 12:15 | Consultation ---
DATE OF CONSULTATION: 06/06/2020 ENDOCRINOLOGY CONSULTATION CONSULTING PHYSICIAN: Danny Pineda M.D. REFERRING PHYSICIAN: Tiara Jara M.D. REASON FOR CONSULTATION: I was asked to see this 60-year-old female by Dr. Tiara Jara in Endocrinology consultation for evaluation and management of type 2 diabetes mellitus out of control. 12 units daily t.i.d. She denies polyuria or polydipsia. Currently, history of leukemia, but present time. PHYSICAL EXAMINATION: GENERAL: The patient is in no acute distress. VITAL SIGNS: Blood pressure 113/56, pulse 100, respiratory rate 18, temperature 97. HEAD AND NECK: Unremarkable. No jugular venous distention. LUNGS: Clear. HEART: . ABDOMEN: Bowel sounds present. EXTREMITIES: No edema. NEUROLOGIC: Cranial nerves II through XII are grossly intact with toes downgoing to plantar stimulation. LABORATORY DATA: Glucose 112 . ASSESSMENT: units daily, ____ four units t.i.d. indicated at the present time. Danny Pineda M.D. DR: CHERYL JOB#: [id number] CC:
--- NOTE | 2020-06-08 12:55 | Nephrology Progress Note ---
Assessment/Plan Problem List: (1) ASHLEY (acute kidney injury) (2) Bilateral pleural effusion (3) Leukemia Assessment Imp: Acute renal failure, with sudden jump in serum creatinine to 2.7 History of leukemia Hypertension, now hypotensive Hyponatremia on admission, improved Bilateral pleural effusion. Status post paracentesis. Elevated troponin, most likely leak. Plan June 08: Status quo. Continues on BiPAP. Due for VATS tomorrow. Start midodrine for low blood pressure. June 06: Status unchanged. Labs reviewed. Renal parameters stable. Continue per consultants. Remains full code. Remains on BiPAP. June 05: Electrolytes now normalized. Discussed with RN. Patient due for VATS surgery early next week. Continue current pulmonary support and monitor renal parameters. June 04: Potassium low. Creatinine higher. Will discontinue IV Lasix as the patient already on metolazone. Potassium supplement ordered. 250 mL of 3% s [place] ordered. Continue to monitor electrolytes and renal parameters. Continue per consultants. June 03: Discussed with Dr. Olson. Patient's pleural effusions continue to be a challenge. Patient on diuretics. Will watch renal parameters and electr olytes. Patient was already tapped twice. Continue per current management. June 02: No chemistry panel done today. Status unchanged. Remains on nonrebreathing mask. Will check lab tomorrow. Continue per pulmonary. June 01: Labs reviewed. Status unchanged. Remains on nonrebreathing mask. Will increase his Lasix to 40 twice daily. Stable electrolytes and renal parameters at this time. May 31: No chemistry panel done today. Patient still on nonrebreathing mask. Patient full code. Will check lab tomorrow. Patient's main issue is respiratory. May 30: Labs reviewed. Renal parameters stable. Continue per pulmonary. May 29: No chemistry panel done today. Remains on nonrebreather mask. Will order labs tomorrow. Continue per consultants. May 28: Serum creatinine up to 1.5. Remains on nonrebreather mask. Since admission had 3 thoracenteses for pleural effusion over the left and right. Respiratory status remains unstable. Continue per pulmonary. Will watch renal parameters. May 27: When seen the patient was on 100% nonrebreather mask. Renal panel within normal limit. Continue per consultants. Main problem remains respiratory. May 26: Renal parameters stable. Started on Lasix 40 mg daily. Continue to monitor renal parameters and electrolytes. Continue per consultants. May 25: Renal parameters within normal limit. Another dose of IV Lasix given. Continue to monitor electrolytes. Continue per consultants. May 24: Renal parameters normalized. Will give the Lasix 40 mg IV once. 1 dose of Kayexalate for hyperkalemia. Continue to monitor renal parameters. Previously: Today renal parameters are improved. Serum creatinine down to 1.6 from 2.7 Continue to hold lisinopril Continue to hold Lasix Half Normal saline 100 cc an hour one liter only was given yesterday Albumin bolus given yesterday, repeat as needed Monitor renal parameters Avoid nephrotoxic's Subjective ROS Limited/Unobtainable: No Constitutional: Reports: malaise, weakness Objective Objective Last 24 Hour Vital Signs Date Time Temp Pulse Resp B/P (MAP) Pulse Ox O2 Delivery O2 Flow Rate FiO2 06/08/20 11:00 91 30 100 100 06/08/20 08:00 Bi-pap Bi-pap 06/08/20 08:00 90 06/08/20 08:00 100 06/08/20 08:00 97.3 92 20 102/70 (81) 100 06/08/20 07:10 100 Bi-Pap 100 06/08/20 07:10 89 30 100 100 06/08/20 04:00 Bi-pap Bi-pap 06/08/20 04:00 100 06/08/20 04:00 88 06/08/20 04:00 97.3 87 20 92/63 (73) 100 06/08/20 02:45 92 32 100 100 06/08/20 00:00 96.8 89 22 92/63 (73) 100 06/08/20 00:00 95 06/08/20 00:00 85 06/08/20 00:00 Bi-pap Bi-pap 06/07/20 22:58 90 30 100 100 06/07/20 20:00 Bi-pap Bi-pap 06/07/20 20:00 97.8 89 21 102/64 (77) 100 06/07/20 20:00 86 06/07/20 19:00 100 Bi-Pap 100 06/07/20 19:00 87 37 100 100 06/07/20 18:52 98/69 (79) 06/07/20 16:09 100 06/07/20 16:08 88 06/07/20 16:05 Bi-pap Bi-pap 06/07/20 16:00 Bi-pap Bi-pap 06/07/20 16:00 100 06/07/20 16:00 96.6 89 26 86/59 (68) 100 06/07/20 15:09 89 29 96 100 Intake and Output 06/07/20 06/08/20 19:00 07:00 Output Total 400 ml 300 ml Balance -400 ml -300 ml Output Urine Total 400 ml 300 ml Current Medications Medications (Trade) Dose Ordered Sig/Jennie Route PRN Reason Start Time Stop Time Status Last Admin Dose Admin Acetaminophen (Tylenol) 500 mg Q6H PRN ORAL Mild Pain (Pain Scale 1-3) 05/19/20 16:45 06/18/20 16:44 Allopurinol (allopurinoL) 300 mg DAILY ORAL 06/06/20 11:00 07/06/20 10:59 06/06/20 11:00 Clonidine HCl (Catapres Tab) 0.1 mg Q4H PRN ORAL SBP > 170 05/24/20 13:15 08/22/20 13:14 Dexamethasone Sodium Phosphate (Decadron 4mg/ml vial) 4 mg DAILY IVP 06/07/20 12:30 09/05/20 12:29 06/08/20 08:40 Dextrose (Dextrose 50%) 25 ml Q30M PRN IV Hypoglycemia 06/05/20 06:30 09/03/20 06:29 Dextrose (Dextrose 50%) 50 ml Q30M PRN IV Hypoglycemia 06/05/20 06:30 09/03/20 06:29 Dextrose/Sodium Chloride 1,000 ml @ 25 mls/hr Q24H IV 06/08/20 11:30 07/08/20 11:29 06/08/20 12:23 Docusate Sodium (Colace) 100 mg TWICE A DAY ORAL 05/22/20 18:00 06/21/20 17:59 06/06/20 17:46 Enoxaparin Sodium (Lovenox) 40 mg DAILY SUBQ 06/02/20 09:00 08/31/20 08:59 06/08/20 08:41 Insulin Aspart (NovoLOG) BEFORE MEALS AND HS SUBQ 06/05/20 06:30 09/03/20 06:29 06/08/20 12:26 Insulin Aspart (NovoLOG) 4 units NOVOTIAC SUBQ 06/05/20 06:30 09/03/20 06:29 06/06/20 11:46 Insulin Detemir (Levemir) 12 units DAILY SUBQ 06/05/20 09:00 09/03/20 08:59 06/07/20 09:50 Metolazone (Zaroxolyn) 5 mg DAILY ORAL 06/01/20 12:00 07/01/20 11:59 06/07/20 09:00 Midodrine (Pro-Amatine) 10 mg THREE TIMES A DAY ORAL 06/08/20 13:00 09/06/20 12:59 UNV Mirtazapine (Remeron) 7.5 mg BEDTIME ORAL 06/02/20 21:00 08/31/20 20:59 06/06/20 20:01 Pantoprazole (Protonix) 40 mg DAILY IVP 06/08/20 09:00 07/08/20 08:59 06/08/20 08:40 Laboratory Tests 06/07/20 16:34: POC Whole Blood Glucose 86 06/08/20 04:41: White Blood Count 11.2H, Red Blood Count 4.61, Hemoglobin 13.0, Hematocrit 39.4, Mean Corpuscular Volume 85, Mean Corpuscular Hemoglobin 28.2, Mean Corpuscular Hemoglobin Concent 33.0, Red Cell Distribution Width 14.3, Platelet Count 391, Mean Platelet Volume 5.9L, Neutrophils (%) (Auto) , Lymphocytes (%) (Auto) , Monocytes (%) (Auto) , Eosinophils (%) (Auto) , Basophils (%) (Auto) , Sodium Level 139, Potassium Level 4.1, Chloride Level 100, Carbon Dioxide Level 32, Blood Urea Nitrogen 65H, Creatinine 1.2, Estimat Glomerular Filtration Rate 45.7, Glucose Level 76, Calcium Level 9.0, Phosphorus Level 5.3H, Magnesium Level 2.6H, Total Bilirubin 0.3, Aspartate Amino Transf (AST/SGOT) 31, Alanine Aminotransferase (ALT/SGPT) 9L, Alkaline Phosphatase 51, C-Reactive Protein, Quantitative 8.5H, Pro-B-Type Natriuretic Peptide 23362X, Total Protein 5.7L, Albumin 2.0L, Globulin 3.7, Albumin/Globulin Ratio 0.5L 06/08/20 05:27: POC Whole Blood Glucose 86 06/08/20 08:36: POC Whole Blood Glucose [Pending] 06/08/20 12:04: POC Whole Blood Glucose [Pending] Height (Feet): 5 Height (Inches): 0.00 Weight (Pounds): 100 General Appearance: no apparent distress Cardiovascular: tachycardia Respiratory/Chest: decreased breath sounds Abdomen: soft, distended Objective No change Montrell Carpio MD Jun 08, 2020 12:55
--- NOTE | 2020-06-08 13:31 | Cardiac Electrophysiology PN ---
Assessment/Plan Assessment/Plan 1. Hypertension. Now off Lisinopril for acute renal failure On Lasix 40 po bid and prn Clonidine 2. Troponin leak. No CP, ECG non ischemic and likely due to renal failure 3. Bilateral pleural effusions. S/P Right side thoracentesis x 2. FU by Dr. Olson. S/P Left thoracentesis again x2 last one 05/29/20. Now on BIPAP VATS on Monday by Dr Joseph pending 4. Hyponatremia. 5. CML x 5 years, sees oncologist in [facility] area DCed desatanib (also is the likely cause of pleural effusions) Per Dr Dolan 6. Acute renal failure with sudden JUMP in creatinine to 2.7. FU Dr Carpio. Better after iv fluid, Albumin and off Lisinopril. Cr now 1.0 DW RN Subjective Subjective S/P 2 Right sided thoracentesis on 05/21/20 and 05/26/20 S/P 2 Left thoracentesis last one 05/29/20 On BIPAP. Scheduled for VATS tomorrow by Dr Joseph Objective Last 24 Hour Vital Signs Date Time Temp Pulse Resp B/P (MAP) Pulse Ox O2 Delivery O2 Flow Rate FiO2 06/08/20 12:00 88 06/08/20 12:00 100 06/08/20 12:00 Bi-pap Bi-pap 06/08/20 12:00 97.0 89 20 97/64 (75) 100 06/08/20 11:00 91 30 100 100 06/08/20 08:00 Bi-pap Bi-pap 06/08/20 08:00 90 06/08/20 08:00 100 06/08/20 08:00 97.3 92 20 102/70 (81) 100 06/08/20 07:10 100 Bi-Pap 100 06/08/20 07:10 89 30 100 100 06/08/20 04:00 Bi-pap Bi-pap 06/08/20 04:00 100 06/08/20 04:00 88 06/08/20 04:00 97.3 87 20 92/63 (73) 100 06/08/20 02:45 92 32 100 100 06/08/20 00:00 96.8 89 22 92/63 (73) 100 06/08/20 00:00 95 06/08/20 00:00 85 06/08/20 00:00 Bi-pap Bi-pap 06/07/20 22:58 90 30 100 100 06/07/20 20:00 Bi-pap Bi-pap 06/07/20 20:00 97.8 89 21 102/64 (77) 100 06/07/20 20:00 86 06/07/20 19:00 100 Bi-Pap 100 06/07/20 19:00 87 37 100 100 06/07/20 18:52 98/69 (79) 06/07/20 16:09 100 06/07/20 16:08 88 06/07/20 16:05 Bi-pap Bi-pap 06/07/20 16:00 Bi-pap Bi-pap 06/07/20 16:00 100 06/07/20 16:00 96.6 89 26 86/59 (68) 100 06/07/20 15:09 89 29 96 100 Intake and Output 06/07/20 06/08/20 19:00 07:00 Output Total 400 ml 300 ml Balance -400 ml -300 ml Output Urine Total 400 ml 300 ml Laboratory Tests Test 06/07/20 16:34 06/08/20 04:41 06/08/20 05:27 06/08/20 08:36 POC Whole Blood Glucose 86 MG/DL (74-106) 86 MG/DL (74-106) Pending White Blood Count 11.2 K/UL (4.8-10.8) H Red Blood Count 4.61 M/UL (4.20-5.40) Hemoglobin 13.0 G/DL (12.0-16.0) Hematocrit 39.4 % (37.0-47.0) Mean Corpuscular Volume 85 FL (80-99) Mean Corpuscular Hemoglobin 28.2 PG (27.0-31.0) Mean Corpuscular Hemoglobin Concent 33.0 G/DL (32.0-36.0) Red Cell Distribution Width 14.3 % (11.6-14.8) Platelet Count 391 K/UL (150-450) Mean Platelet Volume 5.9 FL (6.5-10.1) L Neutrophils (%) (Auto) % (45.0-75.0) Lymphocytes (%) (Auto) % (20.0-45.0) Monocytes (%) (Auto) % (1.0-10.0) Eosinophils (%) (Auto) % (0.0-3.0) Basophils (%) (Auto) % (0.0-2.0) Sodium Level 139 MMOL/L (136-145) Potassium Level 4.1 MMOL/L (3.5-5.1) Chloride Level 100 MMOL/L (98-107) Carbon Dioxide Level 32 MMOL/L (21-32) Blood Urea Nitrogen 65 mg/dL (7-18) H Creatinine 1.2 MG/DL (0.55-1.30) Estimat Glomerular Filtration Rate 45.7 mL/min (>60) Glucose Level 76 MG/DL (74-106) Calcium Level 9.0 MG/DL (8.5-10.1) Phosphorus Level 5.3 MG/DL (2.5-4.9) H Magnesium Level 2.6 MG/DL (1.8-2.4) H Total Bilirubin 0.3 MG/DL (0.2-1.0) Aspartate Amino Transf (AST/SGOT) 31 U/L (15-37) Alanine Aminotransferase (ALT/SGPT) 9 U/L (12-78) L Alkaline Phosphatase 51 U/L (46-116) C-Reactive Protein, Quantitative 8.5 mg/dL (0.00-0.90) H Pro-B-Type Natriuretic Peptide 24354 pg/mL (0-125) H Total Protein 5.7 G/DL (6.4-8.2) L Albumin 2.0 G/DL (3.4-5.0) L Globulin 3.7 g/dL Albumin/Globulin Ratio 0.5 (1.0-2.7) L Test 06/08/20 12:04 POC Whole Blood Glucose Pending Objective HEAD AND NECK: No JVD. On Venturi Mask LUNGS: Decreased breath sounds. CARDIOVASCULAR: Regular S1 and S2 and tachycardic. ABDOMEN: Soft. EXTREMITIES: No pitting edema. Cristian England MD Jun 08, 2020 13:31
[2020-06-08] MEDS: Midodrine 10mg tab ORAL SCH ×2 (14:01→17:25)
[2020-06-08 16:00] VITALS: BP 115/69
--- NOTE | 2020-06-08 17:28 | General Progress Note ---
Subjective Allergies: Coded Allergies: No Known Allergies (Unverified , 05/19/20) All Systems: reviewed and negative except above Subjective events noted interval notes reviewed followed by Dr Pineda over the weekend hypoglycemia noted awake, on BiPAP Item Value Date Time Bedside Blood Glucose 218 mg/dl H 06/08/20 1226 Bedside Blood Glucose 88 mg/dl 06/08/20 0900 Bedside Blood Glucose 86 mg/dl 06/08/20 0630 Bedside Blood Glucose 78 mg/dl 06/07/20 2100 Bedside Blood Glucose 86 mg/dl 06/07/20 1636 Bedside Blood Glucose 130 mg/dl H 06/07/20 1143 Objective Last 24 Hour Vital Signs Date Time Temp Pulse Resp B/P (MAP) Pulse Ox O2 Delivery O2 Flow Rate FiO2 06/08/20 16:00 97.0 96 20 115/69 (84) 100 06/08/20 16:00 Bi-pap Bi-pap 06/08/20 16:00 100 06/08/20 15:19 88 30 100 100 06/08/20 12:00 88 06/08/20 12:00 100 06/08/20 12:00 Bi-pap Bi-pap 06/08/20 12:00 97.0 89 20 97/64 (75) 100 06/08/20 11:00 91 30 100 100 06/08/20 08:00 Bi-pap Bi-pap 06/08/20 08:00 90 06/08/20 08:00 100 06/08/20 08:00 97.3 92 20 102/70 (81) 100 06/08/20 07:10 100 Bi-Pap 100 06/08/20 07:10 89 30 100 100 06/08/20 04:00 Bi-pap Bi-pap 06/08/20 04:00 100 06/08/20 04:00 88 06/08/20 04:00 97.3 87 20 92/63 (73) 100 06/08/20 02:45 92 32 100 100 06/08/20 00:00 96.8 89 22 92/63 (73) 100 06/08/20 00:00 95 06/08/20 00:00 85 06/08/20 00:00 Bi-pap Bi-pap 06/07/20 22:58 90 30 100 100 06/07/20 20:00 Bi-pap Bi-pap 06/07/20 20:00 97.8 89 21 102/64 (77) 100 06/07/20 20:00 86 06/07/20 19:00 100 Bi-Pap 100 06/07/20 19:00 87 37 100 100 06/07/20 18:52 98/69 (79) Intake and Output 06/07/20 06/08/20 19:00 07:00 Output Total 400 ml 300 ml Balance -400 ml -300 ml Output Urine Total 400 ml 300 ml Laboratory Tests 06/08/20 04:41: White Blood Count 11.2H, Red Blood Count 4.61, Hemoglobin 13.0, Hematocrit 39.4, Mean Corpuscular Volume 85, Mean Corpuscular Hemoglobin 28.2, Mean Corpuscular Hemoglobin Concent 33.0, Red Cell Distribution Width 14.3, Platelet Count 391, Mean Platelet Volume 5.9L, Neutrophils (%) (Auto) , Lymphocytes (%) (Auto) , Monocytes (%) (Auto) , Eosinophils (%) (Auto) , Basophils (%) (Auto) , Sodium Level 139, Potassium Level 4.1, Chloride Level 100, Carbon Dioxide Level 32, Blood Urea Nitrogen 65H, Creatinine 1.2, Estimat Glomerular Filtration Rate 45.7, Glucose Level 76, Calcium Level 9.0, Phosphorus Level 5.3H, Magnesium Level 2.6H, Total Bilirubin 0.3, Aspartate Amino Transf (AST/SGOT) 31, Alanine Aminotransferase (ALT/SGPT) 9L, Alkaline Phosphatase 51, C-Reactive Protein, Quantitative 8.5H, Pro-B-Type Natriuretic Peptide 37577F, Total Protein 5.7L, Albumin 2.0L, Globulin 3.7, Albumin/Globulin Ratio 0.5L 06/08/20 05:27: POC Whole Blood Glucose 86 06/08/20 08:36: POC Whole Blood Glucose [Pending] 06/08/20 12:04: POC Whole Blood Glucose [Pending] Height (Feet): 5 Height (Inches): 0.00 Weight (Pounds): 100 General Appearance: no apparent distress Neck: normal alignment Cardiovascular: normal rate Respiratory/Chest: decreased breath sounds Pelvis: normal external exam Objective Current Medications Medications (Trade) Dose Ordered Sig/Jennie Route PRN Reason Start Time Stop Time Status Last Admin Dose Admin Acetaminophen (Tylenol) 500 mg Q6H PRN ORAL Mild Pain (Pain Scale 1-3) 05/19/20 16:45 06/18/20 16:44 Allopurinol (allopurinoL) 300 mg DAILY ORAL 06/06/20 11:00 07/06/20 10:59 06/06/20 11:00 Clonidine HCl (Catapres Tab) 0.1 mg Q4H PRN ORAL SBP > 170 05/24/20 13:15 08/22/20 13:14 Dexamethasone Sodium Phosphate (Decadron 4mg/ml vial) 4 mg DAILY IVP 06/07/20 12:30 09/05/20 12:29 06/08/20 08:40 Dextrose (Dextrose 50%) 25 ml Q30M PRN IV Hypoglycemia 06/05/20 06:30 09/03/20 06:29 Dextrose (Dextrose 50%) 50 ml Q30M PRN IV Hypoglycemia 06/05/20 06:30 09/03/20 06:29 Dextrose/Sodium Chloride 1,000 ml @ 25 mls/hr Q24H IV 06/08/20 11:30 07/08/20 11:29 06/08/20 12:23 Docusate Sodium (Colace) 100 mg TWICE A DAY ORAL 05/22/20 18:00 06/21/20 17:59 06/06/20 17:46 Enoxaparin Sodium (Lovenox) 40 mg DAILY SUBQ 06/02/20 09:00 08/31/20 08:59 06/08/20 08:41 Insulin Aspart (NovoLOG) BEFORE MEALS AND HS SUBQ 06/05/20 06:30 09/03/20 06:29 06/08/20 17:23 Insulin Aspart (NovoLOG) 4 units NOVOTIAC SUBQ 06/05/20 06:30 09/03/20 06:29 06/06/20 11:46 Insulin Detemir (Levemir) 12 units DAILY SUBQ 06/05/20 09:00 09/03/20 08:59 06/07/20 09:50 Metolazone (Zaroxolyn) 5 mg DAILY ORAL 06/01/20 12:00 07/01/20 11:59 06/07/20 09:00 Midodrine (Pro-Amatine) 10 mg THREE TIMES A DAY ORAL 06/08/20 13:00 09/06/20 12:59 06/08/20 14:01 Mirtazapine (Remeron) 7.5 mg BEDTIME ORAL 06/02/20 21:00 08/31/20 20:59 06/06/20 20:01 Pantoprazole (Protonix) 40 mg DAILY IVP 06/08/20 09:00 07/08/20 08:59 06/08/20 08:40 Assessment/Plan Problem List: (1) Hypoglycemia ICD Codes: E16.2 - Hypoglycemia, unspecified SNOMED: 100124103 (2) Steroid-induced hyperglycemia ICD Codes: R73.9 - Hyperglycemia, unspecified; T38.0X5A - Adverse effect of glucocorticoids and synthetic analogues, initial encounter SNOMED: 262117515 (3) ASHLEY (acute kidney injury) ICD Codes: N17.9 - Acute kidney failure, unspecified SNOMED: 4024636, 09775333 (4) Bilateral pleural effusion ICD Codes: J90 - Pleural effusion, not elsewhere classified SNOMED: 147037375 (5) Leukemia ICD Codes: C95.90 - Leukemia, unspecified not having achieved remission SNOMED: 36246918 (6) Anxiety ICD Codes: F41.9 - Anxiety disorder, unspecified SNOMED: 80105748 Status: progressing Assessment/Plan: DC Levemir DC scheduled Novolog DC dextrose continue Novolog sliding scale ac / hs hypoglycemia protocol in order Geoff Gomez MD Jun 08, 2020 17:28
--- NOTE | 2020-06-08 18:56 | Diagnostic Imaging Report ---
Indication: Pain Technique: One view of the chest Comparison: 06/03/2020 Findings: There is increased pleural fluid on the right, now moderate. Large left pleural effusion is unchanged or perhaps slightly improved. Generalized mild interstitial congestion persists. Impression: Increased right and slightly decreased left pleural effusions, over 5 days Unchanged mild interstitial congestion
[2020-06-08 20:00] VITALS: BP 119/74
--- NOTE | 2020-06-08 20:08 | General Progress Note ---
Subjective ROS Limited/Unobtainable: Yes Allergies: Coded Allergies: No Known Allergies (Unverified , 05/19/20) Objective Last 24 Hour Vital Signs Date Time Temp Pulse Resp B/P (MAP) Pulse Ox O2 Delivery O2 Flow Rate FiO2 06/08/20 18:52 100 Bi-Pap 100 06/08/20 18:52 83 23 100 100 06/08/20 16:00 86 06/08/20 16:00 97.0 96 20 115/69 (84) 100 06/08/20 16:00 Bi-pap Bi-pap 06/08/20 16:00 100 06/08/20 15:19 88 30 100 100 06/08/20 12:00 88 06/08/20 12:00 100 06/08/20 12:00 Bi-pap Bi-pap 06/08/20 12:00 97.0 89 20 97/64 (75) 100 06/08/20 11:00 91 30 100 100 06/08/20 08:00 Bi-pap Bi-pap 06/08/20 08:00 90 06/08/20 08:00 100 06/08/20 08:00 97.3 92 20 102/70 (81) 100 06/08/20 07:10 100 Bi-Pap 100 06/08/20 07:10 89 30 100 100 06/08/20 04:00 Bi-pap Bi-pap 06/08/20 04:00 100 06/08/20 04:00 88 06/08/20 04:00 97.3 87 20 92/63 (73) 100 06/08/20 02:45 92 32 100 100 06/08/20 00:00 96.8 89 22 92/63 (73) 100 06/08/20 00:00 95 06/08/20 00:00 85 06/08/20 00:00 Bi-pap Bi-pap 06/07/20 22:58 90 30 100 100 Intake and Output 06/07/20 06/08/20 19:00 07:00 Output Total 400 ml 300 ml Balance -400 ml -300 ml Output Urine Total 400 ml 300 ml Laboratory Tests 06/08/20 04:41: White Blood Count 11.2H, Red Blood Count 4.61, Hemoglobin 13.0, Hematocrit 39.4, Mean Corpuscular Volume 85, Mean Corpuscular Hemoglobin 28.2, Mean Corpuscular Hemoglobin Concent 33.0, Red Cell Distribution Width 14.3, Platelet Count 391, Mean Platelet Volume 5.9L, Neutrophils (%) (Auto) , Lymphocytes (%) (Auto) , Monocytes (%) (Auto) , Eosinophils (%) (Auto) , Basophils (%) (Auto) , Sodium Level 139, Potassium Level 4.1, Chloride Level 100, Carbon Dioxide Level 32, Blood Urea Nitrogen 65H, Creatinine 1.2, Estimat Glomerular Filtration Rate 45.7, Glucose Level 76, Calcium Level 9.0, Phosphorus Level 5.3H, Magnesium Level 2.6H, Total Bilirubin 0.3, Aspartate Amino Transf (AST/SGOT) 31, Alanine Aminotransferase (ALT/SGPT) 9L, Alkaline Phosphatase 51, C-Reactive Protein, Quantitative 8.5H, Pro-B-Type Natriuretic Peptide 50299V, Total Protein 5.7L, Albumin 2.0L, Globulin 3.7, Albumin/Globulin Ratio 0.5L 06/08/20 05:27: POC Whole Blood Glucose 86 06/08/20 08:36: POC Whole Blood Glucose [Pending] 06/08/20 12:04: POC Whole Blood Glucose [Pending] 06/08/20 17:20: POC Whole Blood Glucose [Pending] Height (Feet): 5 Height (Inches): 0.00 Weight (Pounds): 100 Assessment/Plan Problem List: (1) Leukemia ICD Codes: C95.90 - Leukemia, unspecified not having achieved remission SNOMED: 84244105 (2) Bilateral pleural effusion ICD Codes: J90 - Pleural effusion, not elsewhere classified SNOMED: 420650471 Status: progressing Assessment/Plan: sob no wheezing weak malnutrition pleural effusion resp insuff on bipap s/p thoracocentesis for recurrent pleural effusion afebrile Tiara Jara MD Jun 08, 2020 20:07
--- NOTE | 2020-06-08 21:47 | General Progress Note ---
Subjective Allergies: Coded Allergies: No Known Allergies (Unverified , 05/19/20) Subjective above noted NPO x 3 days poor respiratory status Objective Last 24 Hour Vital Signs Date Time Temp Pulse Resp B/P (MAP) Pulse Ox O2 Delivery O2 Flow Rate FiO2 06/08/20 20:00 97.2 89 23 119/74 (89) 99 06/08/20 20:00 82 06/08/20 20:00 100 06/08/20 20:00 Bi-pap Bi-pap 06/08/20 18:54 83 23 100 Bi-Pap 100 06/08/20 18:52 100 Bi-Pap 100 06/08/20 18:52 83 23 100 100 06/08/20 16:00 86 06/08/20 16:00 97.0 96 20 115/69 (84) 100 06/08/20 16:00 Bi-pap Bi-pap 06/08/20 16:00 100 06/08/20 15:19 88 30 100 100 06/08/20 12:00 88 06/08/20 12:00 100 06/08/20 12:00 Bi-pap Bi-pap 06/08/20 12:00 97.0 89 20 97/64 (75) 100 06/08/20 11:00 91 30 100 100 06/08/20 08:00 Bi-pap Bi-pap 06/08/20 08:00 90 06/08/20 08:00 100 06/08/20 08:00 97.3 92 20 102/70 (81) 100 06/08/20 07:10 100 Bi-Pap 100 06/08/20 07:10 89 30 100 100 06/08/20 04:00 Bi-pap Bi-pap 06/08/20 04:00 100 06/08/20 04:00 88 06/08/20 04:00 97.3 87 20 92/63 (73) 100 06/08/20 02:45 92 32 100 100 06/08/20 00:00 96.8 89 22 92/63 (73) 100 06/08/20 00:00 100 06/08/20 00:00 85 06/08/20 00:00 Bi-pap Bi-pap 06/07/20 22:58 90 30 100 100 Intake and Output 06/07/20 06/08/20 19:00 07:00 Output Total 400 ml 300 ml Balance -400 ml -300 ml Output Urine Total 400 ml 300 ml Laboratory Tests 06/08/20 04:41: White Blood Count 11.2H, Red Blood Count 4.61, Hemoglobin 13.0, Hematocrit 39.4, Mean Corpuscular Volume 85, Mean Corpuscular Hemoglobin 28.2, Mean Corpuscular Hemoglobin Concent 33.0, Red Cell Distribution Width 14.3, Platelet Count 391, Mean Platelet Volume 5.9L, Neutrophils (%) (Auto) , Lymphocytes (%) (Auto) , Monocytes (%) (Auto) , Eosinophils (%) (Auto) , Basophils (%) (Auto) , Sodium Level 139, Potassium Level 4.1, Chloride Level 100, Carbon Dioxide Level 32, Blood Urea Nitrogen 65H, Creatinine 1.2, Estimat Glomerular Filtration Rate 45.7, Glucose Level 76, Calcium Level 9.0, Phosphorus Level 5.3H, Magnesium Level 2.6H, Total Bilirubin 0.3, Aspartate Amino Transf (AST/SGOT) 31, Alanine Aminotransferase (ALT/SGPT) 9L, Alkaline Phosphatase 51, C-Reactive Protein, Quantitative 8.5H, Pro-B-Type Natriuretic Peptide 48025I, Total Protein 5.7L, Albumin 2.0L, Globulin 3.7, Albumin/Globulin Ratio 0.5L 06/08/20 05:27: POC Whole Blood Glucose 86 06/08/20 08:36: POC Whole Blood Glucose [Pending] 06/08/20 12:04: POC Whole Blood Glucose [Pending] 06/08/20 17:20: POC Whole Blood Glucose [Pending] 06/08/20 20:35: POC Whole Blood Glucose 193H Height (Feet): 5 Height (Inches): 0.00 Weight (Pounds): 100 Objective NCAT supple Coarse BS RR abd soft no edema Assessment/Plan Status: progressing Assessment/Plan: Assessment - Respiratory failure - BIPAP - pleural effusions, s/p thoracentesis - Renal failure - resolved - Elevated troponin - HTN - CML Recommendations - Pulmonary management - aspiration precautions - resume PO once OK with pulmonary - follow labs and exam Antonio Ratliff MD Jun 08, 2020 21:47
--- NOTE | 2020-06-08 23:48 | Psych Consult Progress Note ---
Psychiatry Progress Note Psychiatry Progress Note Subjective sleeping better less anxious Medications Current Medications Medications (Trade) Dose Ordered Sig/Jennie Route PRN Reason Start Time Stop Time Status Last Admin Dose Admin Acetaminophen (Tylenol) 500 mg Q6H PRN ORAL Mild Pain (Pain Scale 1-3) 05/19/20 16:45 06/18/20 16:44 Allopurinol (allopurinoL) 300 mg DAILY ORAL 06/06/20 11:00 07/06/20 10:59 06/06/20 11:00 Clonidine HCl (Catapres Tab) 0.1 mg Q4H PRN ORAL SBP > 170 05/24/20 13:15 08/22/20 13:14 Dexamethasone Sodium Phosphate (Decadron 4mg/ml vial) 4 mg DAILY IVP 06/07/20 12:30 09/05/20 12:29 06/08/20 08:40 Dextrose (Dextrose 50%) 25 ml Q30M PRN IV Hypoglycemia 06/05/20 06:30 09/03/20 06:29 Dextrose (Dextrose 50%) 50 ml Q30M PRN IV Hypoglycemia 06/05/20 06:30 09/03/20 06:29 Docusate Sodium (Colace) 100 mg TWICE A DAY ORAL 05/22/20 18:00 06/21/20 17:59 06/08/20 17:25 Enoxaparin Sodium (Lovenox) 40 mg DAILY SUBQ 06/02/20 09:00 08/31/20 08:59 06/08/20 08:41 Insulin Aspart (NovoLOG) BEFORE MEALS AND HS SUBQ 06/05/20 06:30 09/03/20 06:29 06/08/20 17:23 Metolazone (Zaroxolyn) 5 mg DAILY ORAL 06/01/20 12:00 07/01/20 11:59 06/07/20 09:00 Midodrine (Pro-Amatine) 10 mg THREE TIMES A DAY ORAL 06/08/20 13:00 09/06/20 12:59 06/08/20 17:25 Mirtazapine (Remeron) 7.5 mg BEDTIME ORAL 06/02/20 21:00 08/31/20 20:59 06/06/20 20:01 Pantoprazole (Protonix) 40 mg DAILY IVP 06/08/20 09:00 07/08/20 08:59 06/08/20 08:40 Neurological/Psychiatric: Reports: anxiety, depressed; Denies: no symptoms, emotional problems, headache, numbness, paresthesia, pre-existing deficit, seizure, tingling, tremors, weakness, other Allergies: Coded Allergies: No Known Allergies (Unverified , 05/19/20) Objective Data Height (Feet): 5 Height (Inches): 0.00 Weight (Pounds): 100 General Appearance: no apparent distress Additional Comments: alert and oriented times self, place, and situation. Mood is anxious. Affect is blunted, congruent with mood. Thought process is concrete. Thought content, there is no suicidal or homicidal ideation. Cognition is intact. Insight and judgment are fair. ASSESSMENT: [place] I Anxiety disorder. Insomnia. [place] II Deferred. [place] III As above. [place] IV Low. [place] V 50. PLAN: 1. Remeron 7.5 mg at bedtime. 2. Provide the patient with reality orientation and supportive therapy. Assessment/Plan Status: progressing Assessment/Plan: [place] I Anxiety disorder. Insomnia. [place] II Deferred. [place] III As above. [place] IV Low. [place] V 50. PLAN: 1. Remeron 7.5 mg at bedtime. 2. Provide the patient with reality orientation and supportive therapy. Anahy Avendano MD Jun 08, 2020 23:48
[2020-06-09] VITALS (19 sets, daily range): BP systolic 80–137; BP diastolic 45–81
--- NOTE | 2020-06-09 00:45 | Consultation ---
DATE OF CONSULTATION: 06/08/2020 NOTE: INCOMPLETE DICTATION CONSULTING PHYSICIAN: Anahy Avendano MD. HISTORY OF PRESENT ILLNESS: This is a 60-year-old female, who is well known to me from past admission who has been admitted to the hospital. Anahy Avendano M.D. DR: VOLODYMYR JOB#: [id number] CC:
[2020-06-09] MEDS: NovoLOG Insulin Flexpen SUBQ SCH ×4 (05:34→20:48)
[2020-06-09 05:43] LABS: HEMATOCRIT 38.9 % (37.0-47.0); HEMOGLOBIN 13.1 G/DL (12.0-16.0); MEAN CORPUSCULAR VOLUME 85 FL (80-99); PLATELET COUNT 393 K/UL (150-450); RED BLOOD COUNT 4.58 M/UL (4.20-5.40); RED CELL DISTRIBUTION WIDTH 14.3 % (11.6-14.8); WHITE BLOOD COUNT 16.8 K/UL (4.8-10.8)
--- NOTE | 2020-06-09 06:32 | Anethesia Preoperative Eval ---
Anesthesia Pre-op PMH/ROS General Date of Evaluation: Jun 09, 2020 Anesthesiologist: Oswaldo ASA Score: ASA 3 Mallampati Score Class I : Soft palate, uvula, fauces, pillars visible Class II: Soft palate, uvula, fauces visible Class III: Soft palate, base of uvula visible Class IV: Only hard plate visible Mallampati Classification: Class II Surgeon: Jake Diagnosis: SOB Surgical Procedure: L VATS, Bilateral Pleural Catheter Anesthesia History: none Family History: no anesthesia problems Allergies: Coded Allergies: No Known Allergies (Unverified , 05/19/20) Medications: see eMAR Patient NPO?: Yes Past Medical History Cardiovascular: Reports: HTN, other - HL Pulmonary: Reports: other - SOB, Orthopnea, BIPAP Hematology/Immune: Reports: other - Leukemia Anesthesia Pre-op Phys. Exam Physician Exam Last Vital Signs Date Time Temp Pulse Resp B/P (MAP) Pulse Ox O2 Delivery O2 Flow Rate FiO2 06/09/20 04:00 Bi-pap Bi-pap 06/09/20 04:00 97.0 81 18 112/73 (86) 100 06/09/20 04:00 100 06/07/20 04:00 15.0 Constitutional: NAD Neurologic: CN 2-12 intact Cardiovascular: RRR Respiratory: CTA Gastrointestinal: S/NT/ND Airway Exam Mallampati Score: Class II MO: full ROM: limited Teeth: missing, intact Anesthesia Pre-op A/P Labs Hematology Test 06/09/20 04:35 White Blood Count 16.8 K/UL (4.8-10.8) H Red Blood Count 4.58 M/UL (4.20-5.40) Hemoglobin 13.1 G/DL (12.0-16.0) Hematocrit 38.9 % (37.0-47.0) Mean Corpuscular Volume 85 FL (80-99) Mean Corpuscular Hemoglobin 28.5 PG (27.0-31.0) Mean Corpuscular Hemoglobin Concent 33.6 G/DL (32.0-36.0) Red Cell Distribution Width 14.3 % (11.6-14.8) Platelet Count 393 K/UL (150-450) Mean Platelet Volume 6.2 FL (6.5-10.1) L Neutrophils (%) (Auto) % (45.0-75.0) Lymphocytes (%) (Auto) % (20.0-45.0) Monocytes (%) (Auto) % (1.0-10.0) Eosinophils (%) (Auto) % (0.0-3.0) Basophils (%) (Auto) % (0.0-2.0) Neutrophils % (Manual) Pending Lymphocytes % (Manual) Pending Platelet Estimate Pending Platelet Morphology Pending Chemistry Test 06/08/20 08:36 06/08/20 12:04 06/08/20 17:20 06/08/20 20:35 POC Whole Blood Glucose Pending Pending Pending 193 MG/DL (74-106) H Test 06/09/20 05:32 POC Whole Blood Glucose 151 MG/DL (74-106) H Risk Assessment & Plan Assessment: ASA 3 Plan: GA, PATSY, A-Line Status Change Before Surgery: No Pre-Antibiotics Drug: Gavin Iglesias MD Jun 09, 2020 06:32
--- NOTE | 2020-06-09 06:47 | Hematology/Onc Progress Note ---
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, sees oncologist in [facility] [place] --> at this time STOP desatanib (also is the likely cause of pleural effusions) --> no is s/p thora per pulm/cards --> 06/04 started low dose dexamethasone for immune response suppression --> wbc trend 18->7->10 --> hgb 11.5->12->13 --> ABX ceftriaxone-->off --> bipap, thora prn, may need ct tube --> needs molecular and cytogenectic response for CML, f/u oncologist outpatient # Bilateral pleural effusion --> as per pulm, is on bipap --> thora as needed --> repeat thora prn 05/29 --> pleural fluid is neg for malignancy --> dr. Joseph has accessed--> for biospy pleural --> imaging q2-3 days # HTN --> hydralazine and lisinopril --> sbp goal <140 # Dehydration --> goal of euvolemia # Elevated ddimer --> duplex lower ext r/o dvt==>neg # Dvt ppx lovenox sq Appreciate consultation and zachariah RN Subjective HEENT: Denies: no symptoms, eye pain, blurred vision, tearing, double vision, ear pain, ear discharge, nose pain, nose congestion, throat pain, throat swelling, mouth pain, mouth swelling, other Cardiovascular: Denies: no symptoms, chest pain, edema, irregular heart rate, lightheadedness, palpitations, syncope, other Gastrointestinal/Abdominal: Denies: no symptoms, abdomen distended, abdominal pain, black stools, tarry stools, blood in stool, constipated, diarrhea, difficulty swallowing, nausea, poor appetite, poor fluid intake, rectal bleeding, vomiting, other Endocrine: Denies: no symptoms, excessive sweating, flushing, intolerance to cold, intolerance to heat, increased hunger, increased thirst, increased urine, unexplained weight gain, unexplained weight loss, other Hematologic/Lymphatic: Denies: no symptoms, anemia, easy bleeding, easy bruising, adenopathy, other Allergies: Coded Allergies: No Known Allergies (Unverified , 05/19/20) Subjective 05/21 labs are noted, no bleeding, with pleural effusions due to desatanbib, s/p thora 05/22 labs are noted, no bleeding, on bipap, i dw her today to stop her med at once 05/24 wbc is improved, continue on ctx for one more day per id, bipap 05/26 have ordered for repeat cxr this am to reeval pleural effusions, labs noted 05/27 with b/l pleural effusions, aware from pulm, thora prn 05/28 has been refusing scds, thus will start lovenox today, breathing better s/p thora 05/29 with nonrebreather, for thora today, no night sweats, meds noted 05/31 remains on bipap, meds reviewed, off desatanib, worse effusion r>l 06/01 on bipap this am, labs pending for am 06/02 unable to wean off facemask, requiring it, will dw sister today 06/03 labs reviewed, meds noted, continues to be bipap support 06/04 no aspiration, is comfortable, meds reviewed, no bleeding 06/05 dw pulm yes, may need ct surg eval, chest tube, started steriods 06/06: labs reviewed no acute events overnight. 06/07 comfortable, no bleeding, meds reviewed, is on bipap still 06/08 labs reviewed, imaging noted, is on bipap this am 06/09 wbc higher, for procedure today, by cts, may get pleural biopsy Objective Objective Current Medications Medications (Trade) Dose Ordered Sig/Jennie Route PRN Reason Start Time Stop Time Status Last Admin Dose Admin Acetaminophen (Tylenol) 500 mg Q6H PRN ORAL Mild Pain (Pain Scale 1-3) 05/19/20 16:45 06/18/20 16:44 Allopurinol (allopurinoL) 300 mg DAILY ORAL 06/06/20 11:00 07/06/20 10:59 06/06/20 11:00 Clonidine HCl (Catapres Tab) 0.1 mg Q4H PRN ORAL SBP > 170 05/24/20 13:15 08/22/20 13:14 Dexamethasone Sodium Phosphate (Decadron 4mg/ml vial) 4 mg DAILY IVP 06/07/20 12:30 09/05/20 12:29 06/08/20 08:40 Dextrose (Dextrose 50%) 25 ml Q30M PRN IV Hypoglycemia 06/05/20 06:30 09/03/20 06:29 Dextrose (Dextrose 50%) 50 ml Q30M PRN IV Hypoglycemia 06/05/20 06:30 09/03/20 06:29 Docusate Sodium (Colace) 100 mg TWICE A DAY ORAL 05/22/20 18:00 06/21/20 17:59 06/08/20 17:25 Enoxaparin Sodium (Lovenox) 40 mg DAILY SUBQ 06/02/20 09:00 08/31/20 08:59 06/08/20 08:41 Insulin Aspart (NovoLOG) BEFORE MEALS AND HS SUBQ 06/05/20 06:30 09/03/20 06:29 06/08/20 17:23 Metolazone (Zaroxolyn) 5 mg DAILY ORAL 06/01/20 12:00 07/01/20 11:59 06/07/20 09:00 Midodrine (Pro-Amatine) 10 mg THREE TIMES A DAY ORAL 06/08/20 13:00 09/06/20 12:59 06/08/20 17:25 Mirtazapine (Remeron) 7.5 mg BEDTIME ORAL 06/02/20 21:00 08/31/20 20:59 06/06/20 20:01 Pantoprazole (Protonix) 40 mg DAILY IVP 06/08/20 09:00 07/08/20 08:59 06/08/20 08:40 Last 24 Hour Vital Signs Date Time Temp Pulse Resp B/P (MAP) Pulse Ox O2 Delivery O2 Flow Rate FiO2 06/09/20 04:00 Bi-pap Bi-pap 06/09/20 04:00 97.0 81 18 112/73 (86) 100 06/09/20 04:00 100 06/09/20 03:28 77 06/09/20 03:19 83 19 100 100 06/09/20 00:00 97.2 89 20 118/81 (93) 100 06/09/20 00:00 84 06/09/20 00:00 100 06/09/20 00:00 Bi-pap Bi-pap 06/08/20 22:58 78 28 100 100 06/08/20 20:00 97.2 89 23 119/74 (89) 99 06/08/20 20:00 82 06/08/20 20:00 100 06/08/20 20:00 Bi-pap Bi-pap 06/08/20 18:54 83 23 100 Bi-Pap 100 06/08/20 18:52 100 Bi-Pap 100 06/08/20 18:52 83 23 100 100 06/08/20 16:00 86 06/08/20 16:00 97.0 96 20 115/69 (84) 100 06/08/20 16:00 Bi-pap Bi-pap 06/08/20 16:00 100 06/08/20 15:19 88 30 100 100 06/08/20 12:00 88 06/08/20 12:00 100 06/08/20 12:00 Bi-pap Bi-pap 06/08/20 12:00 97.0 89 20 97/64 (75) 100 06/08/20 11:00 91 30 100 100 06/08/20 08:00 Bi-pap Bi-pap 06/08/20 08:00 90 06/08/20 08:00 100 06/08/20 08:00 97.3 92 20 102/70 (81) 100 06/08/20 07:10 100 Bi-Pap 100 06/08/20 07:10 89 30 100 100 06/08/20 04:00 Bi-pap Bi-pap 06/08/20 04:00 100 06/08/20 04:00 88 06/08/20 04:00 97.3 87 20 92/63 (73) 100 06/08/20 02:45 92 32 100 100 06/08/20 00:00 96.8 89 22 92/63 (73) 100 06/08/20 00:00 100 06/08/20 00:00 85 06/08/20 00:00 Bi-pap Bi-pap 06/07/20 22:58 90 30 100 100 06/07/20 20:00 Bi-pap Bi-pap 06/07/20 20:00 97.8 89 21 102/64 (77) 100 06/07/20 20:00 86 06/07/20 19:00 100 Bi-Pap 100 06/07/20 19:00 87 37 100 100 06/07/20 18:52 98/69 (79) 06/07/20 16:09 100 06/07/20 16:08 88 06/07/20 16:05 Bi-pap Bi-pap 06/07/20 16:00 Bi-pap Bi-pap 06/07/20 16:00 100 06/07/20 16:00 96.6 89 26 86/59 (68) 100 06/07/20 15:09 89 29 96 100 06/07/20 12:00 100 06/07/20 12:00 94 06/07/20 12:00 Bi-pap Bi-pap 06/07/20 12:00 96.4 94 24 89/60 (70) 100 06/07/20 11:32 93 35 98 100 06/07/20 08:00 Bi-pap Bi-pap 06/07/20 08:00 Bi-pap Bi-pap 06/07/20 08:00 93 06/07/20 08:00 98.0 94 22 92/55 (67) 99 06/07/20 08:00 100 06/07/20 08:00 100 06/07/20 08:00 98.0 94 22 92/55 (67) 99 06/07/20 07:26 92 29 98 100 06/07/20 07:24 98 Bi-Pap 100 Intake and Output 06/08/20 06/09/20 19:00 07:00 Output Total 650 ml 400 ml Balance -650 ml -400 ml Output Urine Total 650 ml 400 ml # Bowel Movements 2 Labs Test 06/06/20 11:34 06/06/20 19:44 06/07/20 05:01 06/07/20 09:41 POC Whole Blood Glucose 157 MG/DL (74-106) 124 MG/DL (74-106) Test 06/07/20 11:40 06/07/20 12:02 06/07/20 16:34 06/08/20 04:41 POC Whole Blood Glucose 130 MG/DL (74-106) 86 MG/DL (74-106) White Blood Count 13.4 K/UL (4.8-10.8) 11.2 K/UL (4.8-10.8) Red Blood Count 4.63 M/UL (4.20-5.40) 4.61 M/UL (4.20-5.40) Hemoglobin 12.9 G/DL (12.0-16.0) 13.0 G/DL (12.0-16.0) Hematocrit 39.4 % (37.0-47.0) 39.4 % (37.0-47.0) Mean Corpuscular Volume 85 FL (80-99) 85 FL (80-99) Mean Corpuscular Hemoglobin 28.0 PG (27.0-31.0) 28.2 PG (27.0-31.0) Mean Corpuscular Hemoglobin Concent 32.8 G/DL (32.0-36.0) 33.0 G/DL (32.0-36.0) Red Cell Distribution Width 14.1 % (11.6-14.8) 14.3 % (11.6-14.8) Platelet Count 402 K/UL (150-450) 391 K/UL (150-450) Mean Platelet Volume 6.1 FL (6.5-10.1) 5.9 FL (6.5-10.1) Neutrophils (%) (Auto) % (45.0-75.0) % (45.0-75.0) Lymphocytes (%) (Auto) % (20.0-45.0) % (20.0-45.0) Monocytes (%) (Auto) % (1.0-10.0) % (1.0-10.0) Eosinophils (%) (Auto) % (0.0-3.0) % (0.0-3.0) Basophils (%) (Auto) % (0.0-2.0) % (0.0-2.0) Differential Total Cells Counted 100 Neutrophils % (Manual) 90 % (45-75) Lymphocytes % (Manual) 4 % (20-45) Monocytes % (Manual) 6 % (1-10) Eosinophils % (Manual) 0 % (0-3) Basophils % (Manual) 0 % (0-2) Band Neutrophils 0 % (0-8) Platelet Estimate Adequate Platelet Morphology Normal Anisocytosis 1+ Sodium Level 137 MMOL/L (136-145) 139 MMOL/L (136-145) Potassium Level 3.8 MMOL/L (3.5-5.1) 4.1 MMOL/L (3.5-5.1) Chloride Level 98 MMOL/L (98-107) 100 MMOL/L (98-107) Carbon Dioxide Level 28 MMOL/L (21-32) 32 MMOL/L (21-32) Anion Gap 11 mmol/L (5-15) Blood Urea Nitrogen 60 mg/dL (7-18) 65 mg/dL (7-18) Creatinine 1.1 MG/DL (0.55-1.30) 1.2 MG/DL (0.55-1.30) Estimat Glomerular Filtration Rate 50.5 mL/min (>60) 45.7 mL/min (>60) Glucose Level 124 MG/DL (74-106) 76 MG/DL (74-106) Calcium Level 8.7 MG/DL (8.5-10.1) 9.0 MG/DL (8.5-10.1) Phosphorus Level 5.3 MG/DL (2.5-4.9) Magnesium Level 2.6 MG/DL (1.8-2.4) Total Bilirubin 0.3 MG/DL (0.2-1.0) Aspartate Amino Transf (AST/SGOT) 31 U/L (15-37) Alanine Aminotransferase (ALT/SGPT) 9 U/L (12-78) Alkaline Phosphatase 51 U/L (46-116) C-Reactive Protein, Quantitative 8.5 mg/dL (0.00-0.90) Pro-B-Type Natriuretic Peptide 51712 pg/mL (0-125) Total Protein 5.7 G/DL (6.4-8.2) Albumin 2.0 G/DL (3.4-5.0) Globulin 3.7 g/dL Albumin/Globulin Ratio 0.5 (1.0-2.7) Test 06/08/20 05:27 06/08/20 08:36 06/08/20 12:04 06/08/20 17:20 POC Whole Blood Glucose 86 MG/DL (74-106) Test 06/08/20 20:35 06/09/20 04:35 06/09/20 05:32 POC Whole Blood Glucose 193 MG/DL (74-106) 151 MG/DL (74-106) White Blood Count 16.8 K/UL (4.8-10.8) Red Blood Count 4.58 M/UL (4.20-5.40) Hemoglobin 13.1 G/DL (12.0-16.0) Hematocrit 38.9 % (37.0-47.0) Mean Corpuscular Volume 85 FL (80-99) Mean Corpuscular Hemoglobin 28.5 PG (27.0-31.0) Mean Corpuscular Hemoglobin Concent 33.6 G/DL (32.0-36.0) Red Cell Distribution Width 14.3 % (11.6-14.8) Platelet Count 393 K/UL (150-450) Mean Platelet Volume 6.2 FL (6.5-10.1) Neutrophils (%) (Auto) % (45.0-75.0) Lymphocytes (%) (Auto) % (20.0-45.0) Monocytes (%) (Auto) % (1.0-10.0) Eosinophils (%) (Auto) % (0.0-3.0) Basophils (%) (Auto) % (0.0-2.0) Height (Feet): 5 Height (Inches): 0.00 Weight (Pounds): 112 Dionicio Higgins MD Jun 09, 2020 06:46
--- NOTE | 2020-06-09 07:04 | General Progress Note ---
Subjective Allergies: Coded Allergies: No Known Allergies (Unverified , 05/19/20) All Systems: reviewed and negative except above Subjective events noted interval notes reviewed glucose values are more stable without recurrence of hypoglycemia Item Value Date Time Bedside Blood Glucose 151 mg/dl H 06/09/20 0630 Bedside Blood Glucose 193 mg/dl H 06/08/20 2100 Bedside Blood Glucose 204 mg/dl H 06/08/20 1723 Bedside Blood Glucose 218 mg/dl H 06/08/20 1226 Bedside Blood Glucose 88 mg/dl 06/08/20 0900 Objective Last 24 Hour Vital Signs Date Time Temp Pulse Resp B/P (MAP) Pulse Ox O2 Delivery O2 Flow Rate FiO2 06/09/20 04:00 Bi-pap Bi-pap 06/09/20 04:00 97.0 81 18 112/73 (86) 100 06/09/20 04:00 100 06/09/20 03:28 77 06/09/20 03:19 83 19 100 100 06/09/20 00:00 97.2 89 20 118/81 (93) 100 06/09/20 00:00 84 06/09/20 00:00 100 06/09/20 00:00 Bi-pap Bi-pap 06/08/20 22:58 78 28 100 100 06/08/20 20:00 97.2 89 23 119/74 (89) 99 06/08/20 20:00 82 06/08/20 20:00 100 06/08/20 20:00 Bi-pap Bi-pap 06/08/20 18:54 83 23 100 Bi-Pap 100 06/08/20 18:52 100 Bi-Pap 100 06/08/20 18:52 83 23 100 100 06/08/20 16:00 86 06/08/20 16:00 97.0 96 20 115/69 (84) 100 06/08/20 16:00 Bi-pap Bi-pap 06/08/20 16:00 100 06/08/20 15:19 88 30 100 100 06/08/20 12:00 88 06/08/20 12:00 100 06/08/20 12:00 Bi-pap Bi-pap 06/08/20 12:00 97.0 89 20 97/64 (75) 100 06/08/20 11:00 91 30 100 100 06/08/20 08:00 Bi-pap Bi-pap 06/08/20 08:00 90 06/08/20 08:00 100 06/08/20 08:00 97.3 92 20 102/70 (81) 100 06/08/20 07:10 100 Bi-Pap 100 06/08/20 07:10 89 30 100 100 Intake and Output 06/08/20 06/09/20 19:00 07:00 Output Total 650 ml 400 ml Balance -650 ml -400 ml Output Urine Total 650 ml 400 ml # Bowel Movements 2 Laboratory Tests 06/08/20 08:36: POC Whole Blood Glucose [Pending] 06/08/20 12:04: POC Whole Blood Glucose [Pending] 06/08/20 17:20: POC Whole Blood Glucose [Pending] 06/08/20 20:35: POC Whole Blood Glucose 193H 06/09/20 04:35: White Blood Count 16.8H, Red Blood Count 4.58, Hemoglobin 13.1, Hematocrit 38.9, Mean Corpuscular Volume 85, Mean Corpuscular Hemoglobin 28.5, Mean Corpuscular Hemoglobin Concent 33.6, Red Cell Distribution Width 14.3, Platelet Count 393, Mean Platelet Volume 6.2L, Neutrophils (%) (Auto) , Lymphocytes (%) (Auto) , Monocytes (%) (Auto) , Eosinophils (%) (Auto) , Basophils (%) (Auto) , Neutrophils % (Manual) [Pending], Lymphocytes % (Manual) [Pending], Platelet Estimate [Pending], Platelet Morphology [Pending] 06/09/20 05:32: POC Whole Blood Glucose 151H Height (Feet): 5 Height (Inches): 0.00 Weight (Pounds): 112 General Appearance: no apparent distress Cardiovascular: normal rate Respiratory/Chest: decreased breath sounds Abdomen: normal bowel sounds Objective Current Medications Medications (Trade) Dose Ordered Sig/Jennie Route PRN Reason Start Time Stop Time Status Last Admin Dose Admin Acetaminophen (Tylenol) 500 mg Q6H PRN ORAL Mild Pain (Pain Scale 1-3) 05/19/20 16:45 06/18/20 16:44 Allopurinol (allopurinoL) 300 mg DAILY ORAL 06/06/20 11:00 07/06/20 10:59 06/06/20 11:00 Clonidine HCl (Catapres Tab) 0.1 mg Q4H PRN ORAL SBP > 170 05/24/20 13:15 08/22/20 13:14 Dexamethasone Sodium Phosphate (Decadron 4mg/ml vial) 4 mg DAILY IVP 06/07/20 12:30 09/05/20 12:29 06/08/20 08:40 Dextrose (Dextrose 50%) 25 ml Q30M PRN IV Hypoglycemia 06/05/20 06:30 09/03/20 06:29 Dextrose (Dextrose 50%) 50 ml Q30M PRN IV Hypoglycemia 06/05/20 06:30 09/03/20 06:29 Docusate Sodium (Colace) 100 mg TWICE A DAY ORAL 05/22/20 18:00 06/21/20 17:59 06/08/20 17:25 Enoxaparin Sodium (Lovenox) 40 mg DAILY SUBQ 06/02/20 09:00 08/31/20 08:59 06/08/20 08:41 Insulin Aspart (NovoLOG) BEFORE MEALS AND HS SUBQ 06/05/20 06:30 09/03/20 06:29 06/08/20 17:23 Metolazone (Zaroxolyn) 5 mg DAILY ORAL 06/01/20 12:00 07/01/20 11:59 06/07/20 09:00 Midodrine (Pro-Amatine) 10 mg THREE TIMES A DAY ORAL 06/08/20 13:00 09/06/20 12:59 06/08/20 17:25 Mirtazapine (Remeron) 7.5 mg BEDTIME ORAL 06/02/20 21:00 08/31/20 20:59 06/06/20 20:01 Pantoprazole (Protonix) 40 mg DAILY IVP 06/08/20 09:00 07/08/20 08:59 06/08/20 08:40 Assessment/Plan Problem List: (1) Hypoglycemia ICD Codes: E16.2 - Hypoglycemia, unspecified SNOMED: 285573795 (2) Steroid-induced hyperglycemia ICD Codes: R73.9 - Hyperglycemia, unspecified; T38.0X5A - Adverse effect of glucocorticoids and synthetic analogues, initial encounter SNOMED: 461558747 (3) ASHLEY (acute kidney injury) ICD Codes: N17.9 - Acute kidney failure, unspecified SNOMED: 8099283, 03227687 (4) Bilateral pleural effusion ICD Codes: J90 - Pleural effusion, not elsewhere classified SNOMED: 833747015 (5) Leukemia ICD Codes: C95.90 - Leukemia, unspecified not having achieved remission SNOMED: 72660517 (6) Anxiety ICD Codes: F41.9 - Anxiety disorder, unspecified SNOMED: 07106700 Status: progressing Assessment/Plan: no need for scheduled insulin orders continue Novolog sliding scale ac / hs hypoglycemia protocol in order Geoff Gomez MD Jun 09, 2020 07:04
[2020-06-09] MEDS ORDERED: Cefepime 1gm vial ONE (07:34)
[2020-06-09] MEDS ORDERED: EPINEPHrine 1mg/1ml Amp ONE (07:34)
[2020-06-09] MEDS ORDERED: Lidocaine 1% 10mg/ml/Epi 0.005mg/ml 30ml vial INJ ONE ×2 (07:34→07:49)
[2020-06-09] MEDS ORDERED: Bupivacaine 0.25% Inj 30ml INJ ONE (07:34)
[2020-06-09] MEDS ORDERED: STERILE TALC 5 GM IPLEURAL ONE (07:45)
[2020-06-09] MEDS ORDERED: NS Irrig 1000ml IRRIG ONE (07:50)
[2020-06-09] MEDS ORDERED: Rocuronium Bromide 50mg/5ml Inj IV ONE (07:54)
--- NOTE | 2020-06-09 08:11 | Pre-Procedure Note/Attestation ---
Pre-Procedure Note/Attestation Complete Prior to Procedure Planned Procedure: bilateral Indications for Procedure Pre-Operative Diagnosis: Bilateral recurrent pleural effusion and lung ground glass opacification Attestation I attest that I discussed the nature of the procedure; its benefits; risks and complications; and alternatives (and the risks and benefits of such alternatives), prior to the procedure, with the patient (or the patient's legal sales service representative). I attest that, if there was a reasonable possibility of needing a blood transfusion, the patient (or the patient's legal sales service representative) was given the [facility] standardized written summary, pursuant to the [place] Blood Safety Act ([place] Health and Safety Code # 1645, as amended). I attest that I re-evaluated the patient just prior to the surgery and that there has been no change in the patient's H&P, except as documented below: Myron Joseph MD Jun 09, 2020 08:11
[2020-06-09] MEDS: Pantoprazole Inj IVP SCH (08:27)
[2020-06-09] MEDS: Midodrine 10mg tab ORAL SCH ×3 (08:28→17:09)
[2020-06-09] MEDS: Enoxaparin 40mg Inj SUBQ SCH (08:28)
[2020-06-09] MEDS: Docusate 100mg cap ORAL SCH ×2 (08:28→17:09)
[2020-06-09] MEDS ORDERED: Lidocaine 1% MPF 10mg/ml 5ml ONE (09:35)
[2020-06-09] MEDS ORDERED: Ketorolac 30mg Inj ONE (09:35)
--- NOTE | 2020-06-09 09:45 | Anethesia Preoperative Eval ---
Anesthesia Pre-op PMH/ROS General Date of Evaluation: Jun 09, 2020 Time of Evaluation: 07:00 ASA Score: ASA 4 Mallampati Score Class I : Soft palate, uvula, fauces, pillars visible Class II: Soft palate, uvula, fauces visible Class III: Soft palate, base of uvula visible Class IV: Only hard plate visible Mallampati Classification: Class II Allergies: Coded Allergies: No Known Allergies (Unverified , 05/19/20) Patient NPO?: Yes Anesthesia Pre-op Phys. Exam Physician Exam Last Vital Signs Date Time Temp Pulse Resp B/P (MAP) Pulse Ox O2 Delivery O2 Flow Rate FiO2 06/09/20 08:00 100 06/09/20 08:00 Bi-pap Bi-pap 06/09/20 08:00 97.2 86 22 137/68 (91) 100 06/07/20 04:00 15.0 Airway Exam Mallampati Score: Class II Anesthesia Pre-op A/P Labs Hematology Test 06/09/20 04:35 White Blood Count 16.8 K/UL (4.8-10.8) H Red Blood Count 4.58 M/UL (4.20-5.40) Hemoglobin 13.1 G/DL (12.0-16.0) Hematocrit 38.9 % (37.0-47.0) Mean Corpuscular Volume 85 FL (80-99) Mean Corpuscular Hemoglobin 28.5 PG (27.0-31.0) Mean Corpuscular Hemoglobin Concent 33.6 G/DL (32.0-36.0) Red Cell Distribution Width 14.3 % (11.6-14.8) Platelet Count 393 K/UL (150-450) Mean Platelet Volume 6.2 FL (6.5-10.1) L Neutrophils (%) (Auto) % (45.0-75.0) Lymphocytes (%) (Auto) % (20.0-45.0) Monocytes (%) (Auto) % (1.0-10.0) Eosinophils (%) (Auto) % (0.0-3.0) Basophils (%) (Auto) % (0.0-2.0) Differential Total Cells Counted 100 Neutrophils % (Manual) 88 % (45-75) H Lymphocytes % (Manual) 6 % (20-45) L Monocytes % (Manual) 5 % (1-10) Metamyelocytes % 1 % (0-0) H Platelet Estimate Pending Platelet Morphology Pending Chemistry Test 06/08/20 12:04 06/08/20 17:20 06/08/20 20:35 06/09/20 05:32 POC Whole Blood Glucose Pending Pending 193 MG/DL (74-106) H 151 MG/DL (74-106) H Brandy Rendon MD Jun 09, 2020 09:45
--- NOTE | 2020-06-09 09:46 | Immediate Post-Op Evaluation ---
Immediate Post-Op Evalulation Immediate Post-Op Evalulation Procedure: left vats Date of Evaluation: Jun 09, 2020 Time of Evaluation: 09:46 Nausea: No Vomiting: No Patient Status: ventilated Brandy Rendon MD Jun 09, 2020 09:46
--- NOTE | 2020-06-09 09:52 | Brief Operative Note ---
Immediate Post Operative Note Operative Note Pre-op Diagnosis: Bilateral recurrent pleural effusion and lung ground glass opacification Procedure: L VATS, lung and pleura biopsy & bilateral pleurex catheter placement Post-op Diagnosis: same as preop Surgeon: Jake Anesthesia: general Specimen: yes Complications: none Fluids: 1000 cc Estimated Blood Loss: minimal Drains: other Implant(s) used?: No Myron Joseph MD Jun 09, 2020 09:52
--- NOTE | 2020-06-09 10:21 | Infectious Diseases Prog Note ---
Assessment/Plan Assessment/Plan IMPRESSION: Leukocytosis, steroid related systemic inflammatory response syndrome or sepsis, Recurrent pleural effusion, CML, Accelerated hypertension, Elevation of troponin. Hypoxemia Hyperglycemia Anxiety disorder Perioperative respiratory failure Azotemia RECOMMENDATION: Start on Cefepime Subjective ROS Limited/Unobtainable: Yes Respiratory: Reports: other - had VATS & bilateral pleurex catheter plcaement Allergies: Coded Allergies: No Known Allergies (Unverified , 05/19/20) Objective Last 24 Hour Vital Signs Date Time Temp Pulse Resp B/P (MAP) Pulse Ox O2 Delivery O2 Flow Rate FiO2 06/09/20 09:53 85 10 100 06/09/20 08:00 100 06/09/20 08:00 Bi-pap Bi-pap 06/09/20 08:00 97.2 86 22 137/68 (91) 100 06/09/20 07:19 100 Bi-Pap 100 06/09/20 06:40 86 18 100 100 06/09/20 04:00 Bi-pap Bi-pap 06/09/20 04:00 97.0 81 18 112/73 (86) 100 06/09/20 04:00 100 06/09/20 03:28 77 06/09/20 03:19 83 19 100 100 06/09/20 00:00 97.2 89 20 118/81 (93) 100 06/09/20 00:00 84 06/09/20 00:00 100 06/09/20 00:00 Bi-pap Bi-pap 06/08/20 22:58 78 28 100 100 06/08/20 20:00 97.2 89 23 119/74 (89) 99 06/08/20 20:00 82 06/08/20 20:00 100 06/08/20 20:00 Bi-pap Bi-pap 06/08/20 18:54 83 23 100 Bi-Pap 100 06/08/20 18:52 100 Bi-Pap 100 06/08/20 18:52 83 23 100 100 06/08/20 16:00 86 06/08/20 16:00 97.0 96 20 115/69 (84) 100 06/08/20 16:00 Bi-pap Bi-pap 06/08/20 16:00 100 06/08/20 15:19 88 30 100 100 06/08/20 12:00 88 06/08/20 12:00 100 06/08/20 12:00 Bi-pap Bi-pap 06/08/20 12:00 97.0 89 20 97/64 (75) 100 06/08/20 11:00 91 30 100 100 Height (Feet): 5 Height (Inches): 0.00 Weight (Pounds): 112 HEENT: other - orally intubated Respiratory/Chest: other - on ventilator, bilateral chest tubes Cardiovascular: normal rate Abdomen: soft, non tender Extremities: no edema Neurologic/Psychiatric: unresponsiveness Laboratory Tests Test 06/08/20 12:04 06/08/20 17:20 06/08/20 20:35 06/09/20 04:35 POC Whole Blood Glucose Pending Pending 193 MG/DL (74-106) H White Blood Count 16.8 K/UL (4.8-10.8) H Red Blood Count 4.58 M/UL (4.20-5.40) Hemoglobin 13.1 G/DL (12.0-16.0) Hematocrit 38.9 % (37.0-47.0) Mean Corpuscular Volume 85 FL (80-99) Mean Corpuscular Hemoglobin 28.5 PG (27.0-31.0) Mean Corpuscular Hemoglobin Concent 33.6 G/DL (32.0-36.0) Red Cell Distribution Width 14.3 % (11.6-14.8) Platelet Count 393 K/UL (150-450) Mean Platelet Volume 6.2 FL (6.5-10.1) L Neutrophils (%) (Auto) % (45.0-75.0) Lymphocytes (%) (Auto) % (20.0-45.0) Monocytes (%) (Auto) % (1.0-10.0) Eosinophils (%) (Auto) % (0.0-3.0) Basophils (%) (Auto) % (0.0-2.0) Differential Total Cells Counted 100 Neutrophils % (Manual) 88 % (45-75) H Lymphocytes % (Manual) 6 % (20-45) L Monocytes % (Manual) 5 % (1-10) Metamyelocytes % 1 % (0-0) H Platelet Estimate Pending Platelet Morphology Pending Test 06/09/20 05:32 POC Whole Blood Glucose 151 MG/DL (74-106) H Current Medications Medications (Trade) Dose Ordered Sig/Jennie Route PRN Reason Start Time Stop Time Status Last Admin Dose Admin Acetaminophen (Tylenol) 500 mg Q6H PRN ORAL Mild Pain (Pain Scale 1-3) 05/19/20 16:45 06/18/20 16:44 Allopurinol (allopurinoL) 300 mg DAILY ORAL 06/06/20 11:00 07/06/20 10:59 06/06/20 11:00 Clonidine HCl (Catapres Tab) 0.1 mg Q4H PRN ORAL SBP > 170 05/24/20 13:15 08/22/20 13:14 Dexamethasone Sodium Phosphate (Decadron 4mg/ml vial) 4 mg DAILY IVP 06/07/20 12:30 09/05/20 12:29 06/08/20 08:40 Dextrose (Dextrose 50%) 25 ml Q30M PRN IV Hypoglycemia 06/05/20 06:30 09/03/20 06:29 Dextrose (Dextrose 50%) 50 ml Q30M PRN IV Hypoglycemia 06/05/20 06:30 09/03/20 06:29 Dextrose/ Electrolytes 1,000 ml @ 50 mls/hr Q20H IV 06/09/20 12:00 07/09/20 11:59 Docusate Sodium (Colace) 100 mg TWICE A DAY ORAL 05/22/20 18:00 06/21/20 17:59 06/08/20 17:25 Enoxaparin Sodium (Lovenox) 40 mg DAILY SUBQ 06/02/20 09:00 08/31/20 08:59 06/08/20 08:41 Insulin Aspart (NovoLOG) BEFORE MEALS AND HS SUBQ 06/05/20 06:30 09/03/20 06:29 06/08/20 17:23 Metolazone (Zaroxolyn) 5 mg DAILY ORAL 06/01/20 12:00 07/01/20 11:59 06/07/20 09:00 Midodrine (Pro-Amatine) 10 mg THREE TIMES A DAY ORAL 06/08/20 13:00 09/06/20 12:59 06/08/20 17:25 Mirtazapine (Remeron) 7.5 mg BEDTIME ORAL 06/02/20 21:00 08/31/20 20:59 06/06/20 20:01 Pantoprazole (Protonix) 40 mg DAILY IVP 06/08/20 09:00 07/08/20 08:59 06/08/20 08:40 Timothy Pennington MD Jun 09, 2020 10:21
[2020-06-09 10:45] LABS: HEMATOCRIT 41.7 % (37.0-47.0); HEMOGLOBIN 13.9 G/DL (12.0-16.0); MEAN CORPUSCULAR VOLUME 85 FL (80-99); PLATELET COUNT 393 K/UL (150-450); RED CELL DISTRIBUTION WIDTH 14.3 % (11.6-14.8); WHITE BLOOD COUNT 16.6 K/UL (4.8-10.8)
[2020-06-09 10:54] LABS: CALCIUM 8.6 MG/DL (8.5-10.1); POTASSIUM 3.6 MMOL/L (3.5-5.1)
[2020-06-09] MEDS ORDERED: HYDROcodone/Acetamin 10/325 tab ORAL PRN (11:00)
[2020-06-09] MEDS ORDERED: Morphine Sulfate 2mg/ml Inj(IV/IM USE ONLY) IVP PRN (11:00)
[2020-06-09] MEDS ORDERED: HYDROcodone/Acetamin 5/325 tab ORAL PRN (11:00)
[2020-06-09] MEDS: Cefepime HCl 1 GM in D5W 55 ML IVPB SCH ×2 (11:21→20:48)
--- NOTE | 2020-06-09 11:46 | Cardiac Electrophysiology PN ---
Assessment/Plan Assessment/Plan 1. Hypertension. Now off Lisinopril for acute renal failure. Change Bumex to iv Lasix 40 daily 2. Troponin leak. No CP, ECG non ischemic and likely due to renal failure 3. Bilateral pleural effusions. S/P Right side thoracentesis x 2. FU by Dr. Olson. S/P Left thoracentesis again x2 last one 05/29/20. Now on BIPAP S/P VATS by Dr Joseph with bilateral chest tubes 06/09/20. On the Vent with 50% Fio2 4. Hyponatremia. 5. CML x 5 years, sees oncologist in [facility] area DCed desatanib (also is the likely cause of pleural effusions) Per Dr Dolan 6. Acute renal failure with sudden JUMP in creatinine to 2.7. FU Dr Carpio. Better after iv fluid, Albumin and off Lisinopril. Cr now 1.0 Change Bumex to Lasix 40 iv daily as no po access now DW RN Subjective Subjective S/P 2 Right sided thoracentesis on 05/21/20 and 05/26/20 S/P 2 Left thoracentesis last one 05/29/20 S/P VATS today by Dr Joseph. Now on the Vent in ICU on 50% Fio2 and PEEP 5 and off pressors. Has Bilateral chest tubes Objective Last 24 Hour Vital Signs Date Time Temp Pulse Resp B/P (MAP) Pulse Ox O2 Delivery O2 Flow Rate FiO2 06/09/20 11:20 87 10 100 06/09/20 11:04 Endotracheal Tube 06/09/20 11:00 82 10 91/55 (67) 100 06/09/20 10:15 86 10 128/69 (88) 100 06/09/20 10:00 84 06/09/20 10:00 97.2 83 10 98/60 (73) 100 06/09/20 09:53 85 10 100 06/09/20 08:00 100 06/09/20 08:00 Bi-pap Bi-pap 06/09/20 08:00 97.2 86 22 137/68 (91) 100 06/09/20 07:19 100 Bi-Pap 100 06/09/20 06:40 86 18 100 100 06/09/20 04:00 Bi-pap Bi-pap 06/09/20 04:00 97.0 81 18 112/73 (86) 100 06/09/20 04:00 100 06/09/20 03:28 77 06/09/20 03:19 83 19 100 100 06/09/20 00:00 97.2 89 20 118/81 (93) 100 06/09/20 00:00 84 06/09/20 00:00 100 06/09/20 00:00 Bi-pap Bi-pap 06/08/20 22:58 78 28 100 100 06/08/20 20:00 97.2 89 23 119/74 (89) 99 06/08/20 20:00 82 06/08/20 20:00 100 06/08/20 20:00 Bi-pap Bi-pap 06/08/20 18:54 83 23 100 Bi-Pap 100 06/08/20 18:52 100 Bi-Pap 100 06/08/20 18:52 83 23 100 100 06/08/20 16:00 86 06/08/20 16:00 97.0 96 20 115/69 (84) 100 06/08/20 16:00 Bi-pap Bi-pap 06/08/20 16:00 100 06/08/20 15:19 88 30 100 100 06/08/20 12:00 88 06/08/20 12:00 100 06/08/20 12:00 Bi-pap Bi-pap 06/08/20 12:00 97.0 89 20 97/64 (75) 100 Intake and Output 06/08/20 06/09/20 19:00 07:00 Output Total 650 ml 400 ml Balance -650 ml -400 ml Output Urine Total 650 ml 400 ml # Bowel Movements 2 Laboratory Tests Test 06/08/20 12:04 06/08/20 17:20 06/08/20 20:35 06/09/20 04:35 POC Whole Blood Glucose Pending Pending 193 MG/DL (74-106) H White Blood Count 16.8 K/UL (4.8-10.8) H Red Blood Count 4.58 M/UL (4.20-5.40) Hemoglobin 13.1 G/DL (12.0-16.0) Hematocrit 38.9 % (37.0-47.0) Mean Corpuscular Volume 85 FL (80-99) Mean Corpuscular Hemoglobin 28.5 PG (27.0-31.0) Mean Corpuscular Hemoglobin Concent 33.6 G/DL (32.0-36.0) Red Cell Distribution Width 14.3 % (11.6-14.8) Platelet Count 393 K/UL (150-450) Mean Platelet Volume 6.2 FL (6.5-10.1) L Neutrophils (%) (Auto) % (45.0-75.0) Lymphocytes (%) (Auto) % (20.0-45.0) Monocytes (%) (Auto) % (1.0-10.0) Eosinophils (%) (Auto) % (0.0-3.0) Basophils (%) (Auto) % (0.0-2.0) Differential Total Cells Counted 100 Neutrophils % (Manual) 88 % (45-75) H Lymphocytes % (Manual) 6 % (20-45) L Monocytes % (Manual) 5 % (1-10) Eosinophils % (Manual) 0 % (0-3) Basophils % (Manual) 0 % (0-2) Metamyelocytes % 1 % (0-0) H Band Neutrophils 0 % (0-8) Platelet Estimate Adequate Platelet Morphology Normal Red Blood Cell Morphology Normal Test 06/09/20 05:32 06/09/20 10:10 06/09/20 10:16 POC Whole Blood Glucose 151 MG/DL (74-106) H White Blood Count 16.6 K/UL (4.8-10.8) H Red Blood Count 4.90 M/UL (4.20-5.40) Hemoglobin 13.9 G/DL (12.0-16.0) Hematocrit 41.7 % (37.0-47.0) Mean Corpuscular Volume 85 FL (80-99) Mean Corpuscular Hemoglobin 28.3 PG (27.0-31.0) Mean Corpuscular Hemoglobin Concent 33.3 G/DL (32.0-36.0) Red Cell Distribution Width 14.3 % (11.6-14.8) Platelet Count 393 K/UL (150-450) Mean Platelet Volume 5.9 FL (6.5-10.1) L Neutrophils (%) (Auto) 91.0 % (45.0-75.0) H Lymphocytes (%) (Auto) 3.0 % (20.0-45.0) L Monocytes (%) (Auto) 4.0 % (1.0-10.0) Eosinophils (%) (Auto) 1.0 % (0.0-3.0) Basophils (%) (Auto) 1.0 % (0.0-2.0) Sodium Level 139 MMOL/L (136-145) Potassium Level 3.6 MMOL/L (3.5-5.1) Chloride Level 99 MMOL/L (98-107) Carbon Dioxide Level 27 MMOL/L (21-32) Anion Gap 13 mmol/L (5-15) Blood Urea Nitrogen 68 mg/dL (7-18) H Creatinine 1.0 MG/DL (0.55-1.30) Estimat Glomerular Filtration Rate 56.4 mL/min (>60) Glucose Level 200 MG/DL (74-106) #H Calcium Level 8.6 MG/DL (8.5-10.1) Ionized Calcium (Measured) Pending Phosphorus Level 4.0 MG/DL (2.5-4.9) Magnesium Level 2.5 MG/DL (1.8-2.4) H Arterial Blood pH 7.393 (7.350-7.450) Arterial Blood Partial Pressure CO2 46.0 mmHg (35.0-45.0) H Arterial Blood Partial Pressure O2 580.6 mmHg (75.0-100.0) H Arterial Blood HCO3 27.4 mmol/L (22.0-26.0) H Arterial Blood Oxygen Saturation 99.7 % (95-100) Arterial Blood Base Excess 2.0 (-2-2) Sammy Test Positive Objective HEAD AND NECK: No JVD. Orally intubated LUNGS: Decreased breath sounds.Bilateral chest tubes in place CARDIOVASCULAR: Regular S1 and S2 and tachycardic. ABDOMEN: Soft. EXTREMITIES: No pitting edema. Cristian England MD Jun 09, 2020 11:46
--- NOTE | 2020-06-09 12:00 | Operative Note - Dictated ---
DATE OF OPERATION: 06/09/2020 PREOPERATIVE DIAGNOSES: 1. Recurrent right pleural effusion. 2. Bilateral lung ground-glass opacification. POSTOPERATIVE DIAGNOSES: 1. Recurrent right pleural effusion. 2. Bilateral lung ground-glass opacification. PROCEDURE PERFORMED: 1. Flexible bronchoscopy. 2. Left video-assisted thoracoscopic surgery. 3. Intrapleural pneumolysis. 4. Left upper and lower lobe wedge resection. 5. Partial pleurectomy. 6. Bilateral PleurX catheter placement. 7. Intercostal nerve block. ANESTHESIA: General endotracheal anesthesia. INDICATION: The patient is a 60-year-old female who presented to [facility] with a recurrent bilateral pleural effusion requiring multiple thoracenteses. She was taken to the operating room for definitive surgical care. The risks and benefits of the proposed operation were explained to the patient in detail including, but not limited to, bleeding, infection, air leak, need for blood transfusion, anesthetic complication, and of less than 1%. In addition, alternative versus no treatment options were also discussed. The patient fully understands the rationale behind the proposed operation. All questions answered to her satisfaction. DESCRIPTION OF PROCEDURE: After obtaining informed consent, the patient was then brought to the operating room and placed in supine position and a surgical time-out was performed. After induction of general anesthesia, arterial line and NICOLASA hose stockings were placed. The flexible bronchoscope was introduced through the endotracheal tube. The trachea and joaquín were inspected. The joaquín was in midline sharp. The right tracheobronchial tree down to the subsegmental level was grossly normal and no endobronchial lesions were seen. Similarly, the left mainstem bronchus was intubated and no obvious endobronchial lesions were visualized at the subsegmental level. Minimal amount of mucopurulent secretions were lavaged and suctioned clear. The bronchoscope was pulled back and removed. The patient tolerated the procedure well with oxygen saturation greater than 96% throughout the procedure. Next, the patient was then placed in the supine position and the right hemithorax was elevated at 45 degrees. The right hemithorax was then prepped and draped in the usual sterile fashion. A 1.5 cm incision was made at the fifth intercostal space in the midaxillary line. Dissection was then carried down into the subcutaneous tissue. Entry into the right hemithorax was uneventful. The PleurX catheter was then placed in a anesthetized subcutaneous tunnel. The PleurX catheter was then placed into the right hemithorax under direct visualization. The PleurX catheter was then anchored at the skin level using 3-0 silk suture and then connected to a suction Pleur-evac. The wound was then reapproximated in two layers with 3-0 Vicryl suture and the skin was reapproximated with 4-0 Monocryl. A dry dressing was applied. The patient was then turned in the right lateral decubitus position and prepped and draped in the usual sterile fashion. The patient also received preoperative intravenous antibiotics. A 1.5 cm incision was made at the fifth intercostal space at midaxillary line. Dissection was then carried down into the subcutaneous tissue. A counter incision was made at the third intercostal space anterior to the midaxillary line. This allowed the introduction of a grasper into the left hemithorax. After passing the Yankauer into the left hemithorax, we drained roughly 1.5 liters of serous pleural effusion; a portion of this pleural effusion was submitted for microbiology analysis and remaining was submitted for cytology. After placement of a Thoracoport as well as a video camera into the hemithorax, we then began to visualize the left hemithorax. There was noted to be some adhesions and these adhesions were taken down using a combination of sharp and blunt electrocauterization. After freeing the lung from the surrounding chest wall, we then proceeded to examine the lung parenchyma. The surface of the upper and lower lobe appeared to be grossly abnormal. As such, a left upper lobe wedge resection was undertaken using a single firing of stapler and this was delivered out the field as a left upper lobe wedge resection. Similarly, the superior segment of the left lower lobe was also grasped with a grasper and then a wedge resection was then performed in the lower lobe in the similar fashion. The specimen was then delivered out of the field as the left lower lobe wedge resection. We then turned our attention to the parietal pleura. The parietal pleura also appeared to be grossly abnormal. A partial pleurectomy was undertaken and specimen was submitted to submitted to pathology. At the end of the operation, hemostasis was assured. Intercostal nerve block was performed from the second 2nd to 8th intercostal space using 0.25% Marcaine. A PleurX catheter was then placed into the left hemithorax via anesthetized subcutaneous tunnel. The PleurX was anchored at the skin level using 3-0 silk suture x2. The wound was then reapproximated with 2-0 Vicryl suture and the skin was reapproximated with 4-0 Monocryl. Steri-Strips and dry dressing was applied. The patient tolerated the procedure well without any complications. Needle and sponges were correct at the end of the operation. She remained intubated and transported to the intensive care unit in a satisfactory condition. EBL: Minimal. COMPLICATIONS: None. SPECIMENS SUBMITTED: 1. Left upper lobe and lower lobe wedge resection. 2. Parietal pleura. 3. Left pleural effusion 1.5 liters to microbiologic analysis and cytology. Alvarez M.D. DR: Carmella JOB#: [id number] CC: SINA
--- NOTE | 2020-06-09 12:01 | Pulmonology Progress Note ---
Subjective ROS Limited/Unobtainable: Yes Interval Events: S/p VATS, Pleurex and lung biopsy Constitutional: Reports: no symptoms HEENT: Repors: no symptoms Respiratory: Reports: dry cough Gastrointestinal/Abdominal: Reports: no symptoms Genitourinary: Reports: no symptoms Neurologic: Reports: no symptoms Musculoskeletal: Denies: pain Allergies: Coded Allergies: No Known Allergies (Unverified , 05/19/20) All Systems: reviewed and negative except above Objective Last 24 Hour Vital Signs Date Time Temp Pulse Resp B/P (MAP) Pulse Ox O2 Delivery O2 Flow Rate FiO2 06/09/20 11:20 87 10 100 06/09/20 11:04 Endotracheal Tube 06/09/20 11:00 82 10 91/55 (67) 100 06/09/20 10:15 86 10 128/69 (88) 100 06/09/20 10:00 84 06/09/20 10:00 97.2 83 10 98/60 (73) 100 06/09/20 09:53 85 10 100 06/09/20 08:00 100 06/09/20 08:00 Bi-pap Bi-pap 06/09/20 08:00 97.2 86 22 137/68 (91) 100 06/09/20 07:19 100 Bi-Pap 100 06/09/20 06:40 86 18 100 100 06/09/20 04:00 Bi-pap Bi-pap 06/09/20 04:00 97.0 81 18 112/73 (86) 100 06/09/20 04:00 100 06/09/20 03:28 77 06/09/20 03:19 83 19 100 100 06/09/20 00:00 97.2 89 20 118/81 (93) 100 06/09/20 00:00 84 06/09/20 00:00 100 06/09/20 00:00 Bi-pap Bi-pap 06/08/20 22:58 78 28 100 100 06/08/20 20:00 97.2 89 23 119/74 (89) 99 06/08/20 20:00 82 06/08/20 20:00 100 06/08/20 20:00 Bi-pap Bi-pap 06/08/20 18:54 83 23 100 Bi-Pap 100 06/08/20 18:52 100 Bi-Pap 100 06/08/20 18:52 83 23 100 100 06/08/20 16:00 86 06/08/20 16:00 97.0 96 20 115/69 (84) 100 06/08/20 16:00 Bi-pap Bi-pap 06/08/20 16:00 100 06/08/20 15:19 88 30 100 100 Intake and Output 06/08/20 06/09/20 19:00 07:00 Output Total 650 ml 400 ml Balance -650 ml -400 ml Output Urine Total 650 ml 400 ml # Bowel Movements 2 General Appearance: no acute distress Respiratory: chest wall non-tender, normal breath sounds, no respiratory distress, no accessory muscle use, decreased breath sounds Cardiovascular: normal peripheral pulses, normal rate Abdomen: normal bowel sounds Extremities: no cyanosis, no clubbing, no edema Laboratory Tests 06/08/20 12:04: POC Whole Blood Glucose [Pending] 06/08/20 17:20: POC Whole Blood Glucose [Pending] 06/08/20 20:35: POC Whole Blood Glucose 193H 06/09/20 04:35: White Blood Count 16.8H, Red Blood Count 4.58, Hemoglobin 13.1, Hematocrit 38.9, Mean Corpuscular Volume 85, Mean Corpuscular Hemoglobin 28.5, Mean Corpuscular Hemoglobin Concent 33.6, Red Cell Distribution Width 14.3, Platelet Count 393, Mean Platelet Volume 6.2L, Neutrophils (%) (Auto) , Lymphocytes (%) (Auto) , Monocytes (%) (Auto) , Eosinophils (%) (Auto) , Basophils (%) (Auto) , Differential Total Cells Counted 100, Neutrophils % (Manual) 88H, Lymphocytes % (Manual) 6L, Monocytes % (Manual) 5, Eosinophils % (Manual) 0, Basophils % (Manual) 0, Metamyelocytes % 1H, Band Neutrophils 0, Platelet Estimate Adequate, Platelet Morphology Normal, Red Blood Cell Morphology Normal 06/09/20 05:32: POC Whole Blood Glucose 151H 06/09/20 10:10: White Blood Count 16.6H, Red Blood Count 4.90, Hemoglobin 13.9, Hematocrit 41.7, Mean Corpuscular Volume 85, Mean Corpuscular Hemoglobin 28.3, Mean Corpuscular Hemoglobin Concent 33.3, Red Cell Distribution Width 14.3, Platelet Count 393, Mean Platelet Volume 5.9L, Neutrophils (%) (Auto) 91.0H, Lymphocytes (%) (Auto) 3.0L, Monocytes (%) (Auto) 4.0, Eosinophils (%) (Auto) 1.0, Basophils (%) (Auto) 1.0, Sodium Level 139, Potassium Level 3.6, Chloride Level 99, Carbon Dioxide Level 27, Anion Gap 13, Blood Urea Nitrogen 68H, Creatinine 1.0, Estimat Glomerular Filtration Rate 56.4, Glucose Level 200#H, Calcium Level 8.6, Ionized Calcium (Measured) [Pending], Phosphorus Level 4.0, Magnesium Level 2.5H 06/09/20 10:16: Arterial Blood pH 7.393, Arterial Blood Partial Pressure CO2 46.0H, Arterial Blood Partial Pressure O2 580.6H, Arterial Blood HCO3 27.4H, Arterial Blood Oxygen Saturation 99.7, Arterial Blood Base Excess 2.0, Sammy Test Positive Current Medications Medications (Trade) Dose Ordered Sig/Jennie Route PRN Reason Start Time Stop Time Status Last Admin Dose Admin Acetaminophen (Tylenol) 500 mg Q6H PRN ORAL Mild Pain (Pain Scale 1-3) 05/19/20 16:45 06/18/20 16:44 Acetaminophen/ Hydrocodone Bitart ([place] 10/325) 1 tab Q4H PRN ORAL Pain Scale (6-10) 06/09/20 11:00 06/16/20 10:59 Acetaminophen/ Hydrocodone Bitart ([place] 5/325) 1 tab Q4H PRN ORAL Moderate Pain (Pain Scale 4-6) 06/09/20 11:00 06/16/20 10:59 Allopurinol (allopurinoL) 300 mg DAILY ORAL 06/06/20 11:00 07/06/20 10:59 06/06/20 11:00 Cefepime HCl 1 gm/ Dextrose 55 ml @ 110 mls/hr EVERY 12 HOURS IVPB 06/09/20 10:45 06/16/20 10:44 06/09/20 11:21 Clonidine HCl (Catapres Tab) 0.1 mg Q4H PRN ORAL SBP > 170 05/24/20 13:15 08/22/20 13:14 Dexamethasone Sodium Phosphate (Decadron 4mg/ml vial) 4 mg DAILY IVP 06/07/20 12:30 09/05/20 12:29 06/08/20 08:40 Dextrose (Dextrose 50%) 25 ml Q30M PRN IV Hypoglycemia 06/05/20 06:30 09/03/20 06:29 Dextrose (Dextrose 50%) 50 ml Q30M PRN IV Hypoglycemia 06/05/20 06:30 09/03/20 06:29 Dextrose/ Electrolytes 1,000 ml @ 50 mls/hr Q20H IV 06/09/20 12:00 07/09/20 11:59 Docusate Sodium (Colace) 100 mg TWICE A DAY ORAL 05/22/20 18:00 06/21/20 17:59 06/08/20 17:25 Enoxaparin Sodium (Lovenox) 40 mg DAILY SUBQ 06/02/20 09:00 08/31/20 08:59 06/08/20 08:41 Insulin Aspart (NovoLOG) BEFORE MEALS AND HS SUBQ 06/05/20 06:30 09/03/20 06:29 06/08/20 17:23 Metolazone (Zaroxolyn) 5 mg DAILY ORAL 06/01/20 12:00 07/01/20 11:59 06/07/20 09:00 Midodrine (Pro-Amatine) 10 mg THREE TIMES A DAY ORAL 06/08/20 13:00 09/06/20 12:59 06/08/20 17:25 Mirtazapine (Remeron) 7.5 mg BEDTIME ORAL 06/02/20 21:00 08/31/20 20:59 06/06/20 20:01 Morphine Sulfate (Morphine Sulfate) 2 mg Q4H PRN IVP Severe Pain (Pain Scale 7-10) 06/09/20 11:00 06/16/20 10:59 Pantoprazole (Protonix) 40 mg DAILY IVP 06/08/20 09:00 07/08/20 08:59 06/08/20 08:40 Assessment/Plan Assessment/Plan IMPRESSION: 1. History of CML, on dasatinib. 2. Possible pneumonia. 3. Large pleural effusion, s/p B thoracentesis. 4. Hypertension. 5. Elevated D-dimer DISCUSSION: S/p VATS, B Pleurex and lung biopsy Will keep intubated Wean in Am Careful ICU care IV fluids DVT prophylaxis Michelet Hernandez Omar Syed MD Jun 09, 2020 12:01
[2020-06-09] MEDS: D5 1/2NS w/KCl 20mEq 1,000 ML IV SCH (12:44)
--- NOTE | 2020-06-09 13:24 | Diagnostic Imaging Report ---
Indication: Shortness of breath, post intubation Technique: One view of the chest Comparison: 06/08/2020 Findings: Interim endotracheal intubation, endotracheal tube tip projecting just above the joaquín. There are bilateral chest tubes in place, with radiographically complete evacuation of previously demonstrated large right pleural effusion, near complete evacuation of previously demonstrated left pleural effusion. There are small apical pneumothoraces present. The heart size is normal. There is some minimal parenchymal opacity in the left lung perihilar region. Previously demonstrated congestive changes overall have improved. Impression: Radiographically resolved right and nearly resolved left pleural effusions, status post chest tube placement. Small bilateral apical pneumothoraces, a not unexpected finding. This finding was discussed by phone with ICU charge nurse Christina at the time of interpretation Improved bilateral interstitial congestion, with some residual parenchymal disease in the left perihilar region.
--- NOTE | 2020-06-09 13:41 | Diagnostic Imaging Report ---
Indication: Post orogastric tube placement Technique: Supine view of the upper abdomen Comparison: none Findings: There is an orogastric tube in place, tip of which projects at the level gastric fundus, proximal port at or just above the expected level of the gastroesophageal junction. The bowel gas pattern is unremarkable. There are bilateral chest tubes in place. There is a left basilar pneumothorax noted. Impression: Somewhat high position of orogastric tube. Advancement recommended. This finding was reported to charge nurse Christina in the ICU at the time of interpretation Other findings as noted
--- NOTE | 2020-06-09 14:44 | 48 Hour Post Anesthesia Eval ---
Post Anesthesia Evaluation Procedure: left vats Date of Evaluation: Jun 09, 2020 Time of Evaluation: 14:43 Blood Pressure Systolic: 91 0: 48 Pulse Rate: 99 Respiratory Rate: 10 - Intubated Temperature (Fahrenheit): 97.2 O2 Sat by Pulse Oximetry: 100 Airway: patent Nausea: No Vomiting: No Pain Intensity: 2 Hydration Status: adequate Cardiopulmonary Status: Stable Mental Status/LOC: patient returned to baseline Follow-up Care/Observations: 0 Post-Anesthesia Complications: 0 Follow-up care needed: N/A Gavin Chacon MD Jun 09, 2020 14:44
--- NOTE | 2020-06-09 15:36 | Nephrology Progress Note ---
Assessment/Plan Problem List: (1) ASHLEY (acute kidney injury) (2) Bilateral pleural effusion (3) Leukemia Assessment Imp: Acute renal failure, with sudden jump in serum creatinine to 2.7 History of leukemia Hypertension, now hypotensive Hyponatremia on admission, improved Bilateral pleural effusion. Status post paracentesis. Elevated troponin, most likely leak. Plan June 09: Patient now in ICU postop. Has bilateral chest tube. Intubated on ventilator. Today's labs reviewed. Continue per consultants. Continue to monitor renal parameters. June 08: Status quo. Continues on BiPAP. Due for VATS tomorrow. Start midodrine for low blood pressure. June 06: Status unchanged. Labs reviewed. Renal parameters stable. Continue per consultants. Remains full code. Remains on BiPAP. June 05: Electrolytes now normalized. Discussed with RN. Patient due for VATS surgery early next week. Continue current pulmonary support and monitor renal parameters. June 04: Potassium low. Creatinine higher. Will discontinue IV Lasix as the patient already on metolazone. Potassium supplement ordered. 250 mL of 3% saline ordered. Continue to monitor electrolytes and renal parameters. Co ntinue per consultants. June 03: Discussed with Dr. Olson. Patient's pleural effusions continue to be a challenge. Patient on diuretics. Will watch renal parameters and electrolytes. Patient was already tapped twice. Continue per current managemen t. June 02: No chemistry panel done today. Status unchanged. Remains on nonrebreathing mask. Will check lab tomorrow. Continue per pulmonary. June 01: Labs reviewed. Status unchanged. Remains on nonrebreathing mask. Will increase his Lasix to 40 twice daily. Stable electrolytes and renal parameters at this time. May 31: No chemistry panel done today. Patient still on nonrebreathing mask. Patient full code. Will check lab tomorrow. Patient's main issue is respiratory. May 30: Labs reviewed. Renal parameters stable. Continue per pulmonary. May 29: No chemistry panel done today. Remains on nonrebreather mask. Will order labs tomorrow. Continue per consultants. May 28: Serum creatinine up to 1.5. Remains on nonrebreather mask. Since admission had 3 thoracenteses for pleural effusion over the left and right. Respiratory status remains unstable. Continue per pulmonary. Will watch renal parameters. May 27: When seen the patient was on 100% nonrebreather mask. Renal panel within normal limit. Continue per consultants. Main problem remains respiratory. May 26: Renal parameters stable. Started on Lasix 40 mg daily. Continue to monitor renal parameters and electrolytes. Continue per consultants. May 25: Renal parameters within normal limit. Another dose of IV Lasix given. Continue to monitor electrolytes. Continue per consultants. May 24: Renal parameters normalized. Will give the Lasix 40 mg IV once. 1 dose of Kayexalate for hyperkalemia. Continue to monitor renal parameters. Previously: Today renal parameters are improved. Serum creatinine down to 1.6 from 2.7 Continue to hold lisinopril Continue to hold Lasix Half Normal saline 100 cc an hour one liter only was given yesterday Albumin bolus given yesterday, repeat as needed Monitor renal parameters Avoid nephrotoxic's Subjective ROS Limited/Unobtainable: Yes Objective Objective Last 24 Hour Vital Signs Date Time Temp Pulse Resp B/P (MAP) Pulse Ox O2 Delivery O2 Flow Rate FiO2 06/09/20 15:00 96 11 96/64 (75) 98 06/09/20 14:44 99 10 100 06/09/20 14:33 96 10 30 06/09/20 14:00 99 10 91/48 (62) 100 06/09/20 13:00 97.6 99 13 85/53 (64) 100 06/09/20 12:00 Endotracheal Tube Endotracheal Tube 06/09/20 12:00 91 06/09/20 12:00 50 06/09/20 12:00 91 10 80/45 (57) 100 06/09/20 11:20 87 10 50 06/09/20 11:04 Endotracheal Tube 06/09/20 11:00 82 10 91/55 (67) 100 06/09/20 10:15 86 10 128/69 (88) 100 06/09/20 10:00 84 06/09/20 10:00 97.2 83 10 98/60 (73) 100 06/09/20 09:53 85 10 100 06/09/20 08:00 100 06/09/20 08:00 Bi-pap Bi-pap 06/09/20 08:00 97.2 86 22 137/68 (91) 100 06/09/20 07:19 100 Bi-Pap 100 06/09/20 06:40 86 18 100 100 06/09/20 04:00 Bi-pap Bi-pap 06/09/20 04:00 97.0 81 18 112/73 (86) 100 06/09/20 04:00 100 06/09/20 03:28 77 06/09/20 03:19 83 19 100 100 06/09/20 00:00 97.2 89 20 118/81 (93) 100 06/09/20 00:00 84 06/09/20 00:00 100 06/09/20 00:00 Bi-pap Bi-pap 06/08/20 22:58 78 28 100 100 06/08/20 20:00 97.2 89 23 119/74 (89) 99 06/08/20 20:00 82 06/08/20 20:00 100 06/08/20 20:00 Bi-pap Bi-pap 06/08/20 18:54 83 23 100 Bi-Pap 100 06/08/20 18:52 100 Bi-Pap 100 06/08/20 18:52 83 23 100 100 06/08/20 16:00 86 06/08/20 16:00 97.0 96 20 115/69 (84) 100 06/08/20 16:00 Bi-pap Bi-pap 06/08/20 16:00 100 Intake and Output 06/08/20 06/09/20 19:00 07:00 Output Total 650 ml 400 ml Balance -650 ml -400 ml Output Urine Total 650 ml 400 ml # Bowel Movements 2 Laboratory Tests 06/08/20 17:20: POC Whole Blood Glucose [Pending] 06/08/20 20:35: POC Whole Blood Glucose 193H 06/09/20 04:35: White Blood Count 16.8H, Red Blood Count 4.58, Hemoglobin 13.1, Hematocrit 38.9, Mean Corpuscular Volume 85, Mean Corpuscular Hemoglobin 28.5, Mean Corpuscular Hemoglobin Concent 33.6, Red Cell Distribution Width 14.3, Platelet Count 393, Mean Platelet Volume 6.2L, Neutrophils (%) (Auto) , Lymphocytes (%) (Auto) , Monocytes (%) (Auto) , Eosinophils (%) (Auto) , Basophils (%) (Auto) , Differential Total Cells Counted 100, Neutrophils % (Manual) 88H, Lymphocytes % (Manual) 6L, Monocytes % (Manual) 5, Eosinophils % (Manual) 0, Basophils % (Manual) 0, Metamyelocytes % 1H, Band Neutrophils 0, Platelet Estimate Adequate, Platelet Morphology Normal, Red Blood Cell Morphology Normal 06/09/20 05:32: POC Whole Blood Glucose 151H 06/09/20 10:10: White Blood Count 16.6H, Red Blood Count 4.90, Hemoglobin 13.9, Hematocrit 41.7, Mean Corpuscular Volume 85, Mean Corpuscular Hemoglobin 28.3, Mean Corpuscular Hemoglobin Concent 33.3, Red Cell Distribution Width 14.3, Platelet Count 393, Mean Platelet Volume 5.9L, Neutrophils (%) (Auto) 91.0H, Lymphocytes (%) (Auto) 3.0L, Monocytes (%) (Auto) 4.0, Eosinophils (%) (Auto) 1.0, Basophils (%) (Auto) 1.0, Sodium Level 139, Potassium Level 3.6, Chloride Level 99, Carbon Dioxide Level 27, Anion Gap 13, Blood Urea Nitrogen 68H, Creatinine 1.0, Estimat Glomerular Filtration Rate 56.4, Glucose Level 200#H, Calcium Level 8.6, Ionized Calcium (Measured) 1.09L, Phosphorus Level 4.0, Magnesium Level 2.5H 06/09/20 10:16: Arterial Blood pH 7.393, Arterial Blood Partial Pressure CO2 46.0H, Arterial Blood Partial Pressure O2 580.6H, Arterial Blood HCO3 27.4H, Arterial Blood Oxygen Saturation 99.7, Arterial Blood Base Excess 2.0, Sammy Test Positive Height (Feet): 5 Height (Inches): 0.00 Weight (Pounds): 111 General Appearance: no apparent distress EENT: other - Intubated on ventilator Cardiovascular: tachycardia Respiratory/Chest: other - Has a bilateral chest tube Abdomen: distended Objective No change Montrell Carpio MD Jun 09, 2020 15:36
--- NOTE | 2020-06-09 15:39 | Diagnostic Imaging Report ---
Indication: Post repositioning of NG tube Technique: Supine view of the abdomen Comparison: 2 hours earlier Findings: Interim advancement of nasogastric tube, tip now in good position at the level of the gastric antrum. Other findings are unchanged. There is a Basurto catheter noted Impression: Improved and now satisfactory position of nasogastric tube
--- NOTE | 2020-06-09 17:01 | General Progress Note ---
Subjective Allergies: Coded Allergies: No Known Allergies (Unverified , 05/19/20) Subjective Seen this am pre procedure patient awake now NPO x 4 days Objective Last 24 Hour Vital Signs Date Time Temp Pulse Resp B/P (MAP) Pulse Ox O2 Delivery O2 Flow Rate FiO2 06/09/20 16:00 99 11 100/64 (76) 97 06/09/20 16:00 100 06/09/20 16:00 98.0 99 11 100/64 (76) 97 06/09/20 16:00 Endotracheal Tube Endotracheal Tube 06/09/20 16:00 50 06/09/20 15:00 96 11 96/64 (75) 98 06/09/20 14:44 99 10 100 06/09/20 14:33 96 10 30 06/09/20 14:00 99 10 91/48 (62) 100 06/09/20 13:00 97.6 99 13 85/53 (64) 100 06/09/20 12:00 Endotracheal Tube Endotracheal Tube 06/09/20 12:00 91 06/09/20 12:00 50 06/09/20 12:00 91 10 80/45 (57) 100 06/09/20 11:20 87 10 50 06/09/20 11:04 Endotracheal Tube 06/09/20 11:00 82 10 91/55 (67) 100 06/09/20 10:15 86 10 128/69 (88) 100 06/09/20 10:00 84 06/09/20 10:00 97.2 83 10 98/60 (73) 100 06/09/20 09:53 85 10 100 06/09/20 08:00 100 06/09/20 08:00 Bi-pap Bi-pap 06/09/20 08:00 97.2 86 22 137/68 (91) 100 06/09/20 07:19 100 Bi-Pap 100 06/09/20 06:40 86 18 100 100 06/09/20 04:00 Bi-pap Bi-pap 06/09/20 04:00 97.0 81 18 112/73 (86) 100 06/09/20 04:00 100 06/09/20 03:28 77 06/09/20 03:19 83 19 100 100 06/09/20 00:00 97.2 89 20 118/81 (93) 100 06/09/20 00:00 84 06/09/20 00:00 100 06/09/20 00:00 Bi-pap Bi-pap 06/08/20 22:58 78 28 100 100 06/08/20 20:00 97.2 89 23 119/74 (89) 99 06/08/20 20:00 82 06/08/20 20:00 100 06/08/20 20:00 Bi-pap Bi-pap 06/08/20 18:54 83 23 100 Bi-Pap 100 06/08/20 18:52 100 Bi-Pap 100 06/08/20 18:52 83 23 100 100 Intake and Output 06/08/20 06/09/20 19:00 07:00 Output Total 650 ml 400 ml Balance -650 ml -400 ml Output Urine Total 650 ml 400 ml # Bowel Movements 2 Laboratory Tests 06/08/20 17:20: POC Whole Blood Glucose [Pending] 06/08/20 20:35: POC Whole Blood Glucose 193H 06/09/20 04:35: White Blood Count 16.8H, Red Blood Count 4.58, Hemoglobin 13.1, Hematocrit 38.9, Mean Corpuscular Volume 85, Mean Corpuscular Hemoglobin 28.5, Mean Corpuscular Hemoglobin Concent 33.6, Red Cell Distribution Width 14.3, Platelet Count 393, Mean Platelet Volume 6.2L, Neutrophils (%) (Auto) , Lymphocytes (%) (Auto) , Monocytes (%) (Auto) , Eosinophils (%) (Auto) , Basophils (%) (Auto) , Di fferential Total Cells Counted 100, Neutrophils % (Manual) 88H, Lymphocytes % (Manual) 6L, Monocytes % (Manual) 5, Eosinophils % (Manual) 0, Basophils % (Manual) 0, Metamyelocytes % 1H, Band Neutrophils 0, Platelet Estimate Adequate, Platelet Morphology Normal, Red Blood Cell Morphology Normal 06/09/20 05:32: POC Whole Blood Glucose 151H 06/09/20 10:10: White Blood Count 16.6H, Red Blood Count 4.90, Hemoglobin 13.9, Hematocrit 41.7, Mean Corpuscular Volume 85, Mean Corpuscular Hemoglobin 28.3, Mean Corpuscular Hemoglobin Concent 33.3, Red Cell Distribution Width 14.3, Platelet Count 393, Mean Platelet Volume 5.9L, Neutrophils (%) (Auto) 91.0H, Lymphocytes (%) (Auto) 3.0L, Monocytes (%) (Auto) 4.0, Eosinophils (%) (Auto) 1.0, Basophils (%) (Auto) 1.0, Sodium Level 139, Potassium Level 3.6, Chloride Level 99, Carbon Dioxide Level 27, Anion Gap 13, Blood Urea Nitrogen 68H, Creatinine 1.0, Estimat Glomerular Filtration Rate 56.4, Glucose Level 200#H, Calcium Level 8.6, Ionized Calcium (Measured) 1.09L, Phosphorus Level 4.0, Magnesium Level 2.5H 06/09/20 10:16: Arterial Blood pH 7.393, Arterial Blood Partial Pressure CO2 46.0H, Arterial Blood Partial Pressure O2 580.6H, Arterial Blood HCO3 27.4H, Arterial Blood Oxygen Saturation 99.7, Arterial Blood Base Excess 2.0, Sammy Test Positive Height (Feet): 5 Height (Inches): 0.00 Weight (Pounds): 111 Objective NCAT, (+) BIPAP mask this am pre procedure supple Coarse BS RR abd soft no edema Assessment/Plan Status: progressing Assessment/Plan: Assessment - Respiratory failure - BIPAP- now intubated - pleural effusions, s/p thoracentesis - Renal failure - resolved - Elevated troponin - HTN - CML Recommendations - Pulmonary management - vent care - Consider PEG placement while intubated --> can be used for supplemental feeds - follow labs and exam Antonio Ratliff MD Jun 09, 2020 17:01
[2020-06-10] VITALS (24 sets, daily range): BP systolic 88–119; BP diastolic 47–70
[2020-06-10 04:50] LABS: HEMATOCRIT 33.6 % (37.0-47.0); HEMOGLOBIN 11.3 G/DL (12.0-16.0); MEAN CORPUSCULAR VOLUME 85 FL (80-99); PLATELET COUNT 290 K/UL (150-450); RED BLOOD COUNT 3.97 M/UL (4.20-5.40); RED CELL DISTRIBUTION WIDTH 14.3 % (11.6-14.8); WHITE BLOOD COUNT 16.2 K/UL (4.8-10.8)
[2020-06-10 06:16] LABS: CALCIUM 7.8 MG/DL (8.5-10.1); CREATININE 1.5 MG/DL (0.55-1.30); POTASSIUM 4.5 MMOL/L (3.5-5.1)
[2020-06-10 06:20] LABS: ALBUMIN 2.1 G/DL (3.4-5.0); ALBUMIN/GLOBULIN RATIO 0.8 (1.0-2.7); BILIRUBIN,TOTAL 0.4 MG/DL (0.2-1.0); PHOSPHORUS 2.5 MG/DL (2.5-4.9)
[2020-06-10] MEDS: NovoLOG Insulin Flexpen SUBQ SCH ×4 (06:20→20:40)
--- NOTE | 2020-06-10 06:42 | General Progress Note ---
Subjective Allergies: Coded Allergies: No Known Allergies (Unverified , 05/19/20) All Systems: reviewed and negative except above Subjective events noted interval notes reviewed glucose values are elevated due to dextrose and dexa Item Value Date Time Bedside Blood Glucose 289 mg/dl H 06/10/20 0620 Bedside Blood Glucose 213 mg/dl H 06/09/20 2100 Bedside Blood Glucose 234 mg/dl H 06/09/20 1709 Bedside Blood Glucose 190 mg/dl H 06/09/20 1130 Bedside Blood Glucose 151 mg/dl H 06/09/20 0630 Objective Last 24 Hour Vital Signs Date Time Temp Pulse Resp B/P (MAP) Pulse Ox O2 Delivery O2 Flow Rate FiO2 06/10/20 06:00 92 15 97/58 (71) 96 06/10/20 05:00 95 17 91/48 (62) 99 06/10/20 04:00 92 06/10/20 04:00 98.4 92 21 96/60 (72) 100 06/10/20 04:00 Endotracheal Tube Endotracheal Tube 06/10/20 04:00 50 06/10/20 03:00 95 24 97/64 (75) 100 06/10/20 02:44 97 16 30 06/10/20 02:00 96 12 91/57 (68) 97 06/10/20 01:00 101 14 88/52 (64) 96 06/10/20 00:00 50 06/10/20 00:00 98.4 96 12 92/60 (71) 97 06/10/20 00:00 Endotracheal Tube Endotracheal Tube 06/10/20 00:00 96 06/09/20 23:17 92 10 30 06/09/20 23:00 95 23 97/65 (76) 99 06/09/20 22:00 94 12 105/53 (70) 99 06/09/20 21:12 95 15 103/57 (72) 98 06/09/20 21:00 95 12 80/50 (60) 96 06/09/20 20:00 50 06/09/20 20:00 88 06/09/20 20:00 98.1 98 16 91/59 (70) 97 06/09/20 20:00 Endotracheal Tube Endotracheal Tube 06/09/20 19:37 94 15 30 06/09/20 19:00 84 15 100/65 (77) 98 06/09/20 18:00 91 26 92/51 (65) 100 06/09/20 17:00 96 10 104/64 (77) 97 06/09/20 16:00 99 11 100/64 (76) 97 06/09/20 16:00 100 06/09/20 16:00 98.0 99 11 100/64 (76) 97 06/09/20 16:00 Endotracheal Tube Endotracheal Tube 06/09/20 16:00 50 06/09/20 15:00 96 11 96/64 (75) 98 06/09/20 14:44 99 10 100 06/09/20 14:33 96 10 30 06/09/20 14:00 99 10 91/48 (62) 100 06/09/20 13:00 97.6 99 13 85/53 (64) 100 06/09/20 12:00 Endotracheal Tube Endotracheal Tube 06/09/20 12:00 91 06/09/20 12:00 50 06/09/20 12:00 91 10 80/45 (57) 100 06/09/20 11:20 87 10 50 06/09/20 11:04 Endotracheal Tube 06/09/20 11:00 82 10 91/55 (67) 100 06/09/20 10:15 86 10 128/69 (88) 100 06/09/20 10:00 84 06/09/20 10:00 97.2 83 10 98/60 (73) 100 06/09/20 09:53 85 10 100 06/09/20 08:00 100 06/09/20 08:00 Bi-pap Bi-pap 06/09/20 08:00 97.2 86 22 137/68 (91) 100 06/09/20 07:19 100 Bi-Pap 100 Intake and Output 06/09/20 06/10/20 19:00 07:00 Intake Total 388.33 ml 1420 ml Output Total 2445 ml 930 ml Balance -2056.67 ml 490 ml Free Water 130 ml IV Total 368.33 ml 1000 ml Tube Feeding 20 ml 290 ml Output Urine Total 185 ml 230 ml Chest Tube Drainage Total 2260 ml 700 ml Laboratory Tests 06/09/20 10:10: White Blood Count 16.6H, Red Blood Count 4.90, Hemoglobin 13.9, Hematocrit 41.7, Mean Corpuscular Volume 85, Mean Corpuscular Hemoglobin 28.3, Mean Corpuscular Hemoglobin Concent 33.3, Red Cell Distribution Width 14.3, Platelet Count 393, Mean Platelet Volume 5.9L, Neutrophils (%) (Auto) 91.0H, Lymphocytes (%) (Auto) 3.0L, Monocytes (%) (Auto) 4.0, Eosinophils (%) (Auto) 1.0, Basophils (%) (Auto) 1.0, Sodium Level 139, Potassium Level 3.6, Chloride Level 99, Carbon Dioxide Level 27, Anion Gap 13, Blood Urea Nitrogen 68H, Creatinine 1.0, Estimat Glomerular Filtration Rate 56.4, Glucose Level 200#H, Calcium Level 8.6, Ionized Calcium (Measured) 1.09L, Phosphorus Level 4.0, Magnesium Level 2.5H 06/09/20 10:16: Arterial Blood pH 7.393, Arterial Blood Partial Pressure CO2 46.0H, Arterial Blood Partial Pressure O2 580.6H, Arterial Blood HCO3 27.4H, Arterial Blood Oxygen Saturation 99.7, Arterial Blood Base Excess 2.0, Sammy Test Positive 06/10/20 03:15: White Blood Count 16.2H, Red Blood Count 3.97L, Hemoglobin 11.3L, Hematocrit 33.6L, Mean Corpuscular Volume 85, Mean Corpuscular Hemoglobin 28.5, Mean Corpuscular Hemoglobin Concent 33.6, Red Cell Distribution Width 14.3, Platelet Count 290, Mean Platelet Volume 6.0L, Neutrophils (%) (Auto) , Lymphocytes (%) (Auto) , Monocytes (%) (Auto) , Eosinophils (%) (Auto) , Basophils (%) (Auto) , Neutrophils % (Manual) [Pending], Lymphocytes % (Manual) [Pending], Platelet Estimate [Pending], Platelet Morphology [Pending], C-Reactive Protein, Quantitative 17.9H, Pro-B-Type Natriuretic Peptide [id number] 06/10/20 04:29: Ionized Calcium (Measured) 0.93L 06/10/20 05:45: Sodium Level 136, Potassium Level 4.5, Chloride Level 102, Carbon Dioxide Level 26, Anion Gap 9, Blood Urea Nitrogen 78H, Creatinine 1.5H, Estimat Glomerular Filtration Rate 35.3, Glucose Level 335#H, Calcium Level 7.8L, Phosphorus Level 2.5, Magnesium Level 2.4, Total Bilirubin 0.4, Aspartate Amino Transf (AST/SGOT) 53H, Alanine Aminotransferase (ALT/SGPT) 19, Alkaline Phosphatase 87, Total Protein 4.8L, Albumin 2.1L, Globulin 2.7, Albumin/Globulin Ratio 0.8L Height (Feet): 5 Height (Inches): 0.00 Weight (Pounds): 111 General Appearance: no apparent distress Neck: normal alignment Cardiovascular: normal rate Respiratory/Chest: decreased breath sounds Abdomen: normal bowel sounds Objective Current Medications Medications (Trade) Dose Ordered Sig/Jennie Route PRN Reason Start Time Stop Time Status Last Admin Dose Admin Acetaminophen (Tylenol) 500 mg Q6H PRN ORAL Mild Pain (Pain Scale 1-3) 05/19/20 16:45 06/18/20 16:44 Acetaminophen/ Hydrocodone Bitart ([place] 10/325) 1 tab Q4H PRN ORAL Pain Scale (6-10) 06/09/20 11:00 06/16/20 10:59 Acetaminophen/ Hydrocodone Bitart ([place] 5/325) 1 tab Q4H PRN ORAL Moderate Pain (Pain Scale 4-6) 06/09/20 11:00 06/16/20 10:59 Allopurinol (allopurinoL) 300 mg DAILY ORAL 06/06/20 11:00 07/06/20 10:59 06/06/20 11:00 Cefepime HCl 1 gm/ Dextrose 55 ml @ 110 mls/hr EVERY 12 HOURS IVPB 06/09/20 10:45 06/16/20 10:44 06/09/20 20:48 Clonidine HCl (Catapres Tab) 0.1 mg Q4H PRN ORAL SBP > 170 05/24/20 13:15 08/22/20 13:14 Dexamethasone Sodium Phosphate (Decadron 4mg/ml vial) 4 mg DAILY IVP 06/07/20 12:30 09/05/20 12:29 06/08/20 08:40 Dextrose (Dextrose 50%) 25 ml Q30M PRN IV Hypoglycemia 06/05/20 06:30 09/03/20 06:29 Dextrose (Dextrose 50%) 50 ml Q30M PRN IV Hypoglycemia 06/05/20 06:30 09/03/20 06:29 Dextrose/ Electrolytes 1,000 ml @ 50 mls/hr Q20H IV 06/09/20 12:00 07/09/20 11:59 06/09/20 12:44 Docusate Sodium (Colace) 100 mg TWICE A DAY ORAL 05/22/20 18:00 06/21/20 17:59 06/08/20 17:25 Enoxaparin Sodium (Lovenox) 40 mg DAILY SUBQ 06/02/20 09:00 08/31/20 08:59 06/08/20 08:41 Insulin Aspart (NovoLOG) BEFORE MEALS AND HS SUBQ 06/05/20 06:30 09/03/20 06:29 06/10/20 06:20 Metolazone (Zaroxolyn) 5 mg DAILY ORAL 06/01/20 12:00 07/01/20 11:59 06/07/20 09:00 Midodrine (Pro-Amatine) 10 mg THREE TIMES A DAY ORAL 06/08/20 13:00 09/06/20 12:59 06/09/20 17:09 Mirtazapine (Remeron) 7.5 mg BEDTIME ORAL 06/02/20 21:00 08/31/20 20:59 06/09/20 20:48 Morphine Sulfate (Morphine Sulfate) 2 mg Q4H PRN IVP Severe Pain (Pain Scale 7-10) 06/09/20 11:00 06/16/20 10:59 Pantoprazole (Protonix) 40 mg DAILY IVP 06/08/20 09:00 07/08/20 08:59 06/08/20 08:40 Sodium Chloride 500 ml @ 999 mls/hr Q31M PRN IV For hypotension 06/09/20 17:00 07/09/20 16:59 06/09/20 21:08 Assessment/Plan Problem List: (1) Hypoglycemia ICD Codes: E16.2 - Hypoglycemia, unspecified SNOMED: 554669477 (2) Steroid-induced hyperglycemia ICD Codes: R73.9 - Hyperglycemia, unspecified; T38.0X5A - Adverse effect of glucocorticoids and synthetic analogues, initial encounter SNOMED: 681772452 (3) ASHLEY (acute kidney injury) ICD Codes: N17.9 - Acute kidney failure, unspecified SNOMED: 9350331, 02728943 (4) Bilateral pleural effusion ICD Codes: J90 - Pleural effusion, not elsewhere classified SNOMED: 787297694 (5) Leukemia ICD Codes: C95.90 - Leukemia, unspecified not having achieved remission SNOMED: 78028054 (6) Anxiety ICD Codes: F41.9 - Anxiety disorder, unspecified SNOMED: 33688620 Status: progressing Assessment/Plan: add Levemir 10 units daily continue Novolog sliding scale ac / hs hypoglycemia protocol in order Geoff Gomez MD Jun 10, 2020 06:42
--- NOTE | 2020-06-10 06:58 | Diagnostic Imaging Report ---
EXAM: XR Chest, 1 View CLINICAL HISTORY: PREOP TECHNIQUE: Frontal view of the chest. COMPARISON: Chest radiograph May 31, 2020 FINDINGS/IMPRESSION: Endotracheal tube terminates approximately 2.7 cm above the joaquín. Airspace opacity within the left midlung field, suspicious for infiltrate. Small left apical pneumothorax, along the medial aspect of the left lung apex. Left-sided chest tube. The right lung is clear with no pneumothorax. Cardiomegaly. Calcified aorta.
[2020-06-10] MEDS: Midodrine 10mg tab ORAL SCH ×3 (08:37→18:17)
[2020-06-10] MEDS: D5 1/2NS w/KCl 20mEq 1,000 ML IV SCH (08:37)
[2020-06-10] MEDS: Cefepime HCl 1 GM in D5W 55 ML IVPB SCH ×2 (08:37→20:38)
[2020-06-10] MEDS: Docusate 100mg cap ORAL SCH ×2 (08:37→18:18)
[2020-06-10] MEDS: Pantoprazole Inj IVP SCH (08:37)
[2020-06-10] MEDS: Enoxaparin 40mg Inj SUBQ SCH ×2 (09:00→09:49)
[2020-06-10] MEDS ORDERED: Levemir Flexpen SUBQ SCH (09:00)
--- NOTE | 2020-06-10 10:14 | Pulmonology Progress Note ---
Subjective ROS Limited/Unobtainable: Yes Interval Events: S/p VATS, Pleurex and lung biopsy Constitutional: Reports: no symptoms HEENT: Repors: no symptoms Respiratory: Reports: dry cough Gastrointestinal/Abdominal: Reports: no symptoms Genitourinary: Reports: no symptoms Neurologic: Reports: no symptoms Musculoskeletal: Denies: pain Allergies: Coded Allergies: No Known Allergies (Unverified , 05/19/20) All Systems: reviewed and negative except above Objective Last 24 Hour Vital Signs Date Time Temp Pulse Resp B/P (MAP) Pulse Ox O2 Delivery O2 Flow Rate FiO2 06/10/20 10:10 30 06/10/20 08:00 30 06/10/20 07:00 95 19 96/52 (67) 100 06/10/20 06:00 92 15 97/58 (71) 96 06/10/20 05:00 95 17 91/48 (62) 99 06/10/20 04:00 92 06/10/20 04:00 98.4 92 21 96/60 (72) 100 06/10/20 04:00 Endotracheal Tube Endotracheal Tube 06/10/20 04:00 50 06/10/20 03:00 95 24 97/64 (75) 100 06/10/20 02:44 97 16 30 06/10/20 02:00 96 12 91/57 (68) 97 06/10/20 01:00 101 14 88/52 (64) 96 06/10/20 00:00 50 06/10/20 00:00 98.4 96 12 92/60 (71) 97 06/10/20 00:00 Endotracheal Tube Endotracheal Tube 06/10/20 00:00 96 06/09/20 23:17 92 10 30 06/09/20 23:00 95 23 97/65 (76) 99 06/09/20 22:00 94 12 105/53 (70) 99 06/09/20 21:12 95 15 103/57 (72) 98 06/09/20 21:00 95 12 80/50 (60) 96 06/09/20 20:00 50 06/09/20 20:00 88 06/09/20 20:00 98.1 98 16 91/59 (70) 97 06/09/20 20:00 Endotracheal Tube Endotracheal Tube 06/09/20 19:37 94 15 30 06/09/20 19:00 84 15 100/65 (77) 98 06/09/20 18:00 91 26 92/51 (65) 100 06/09/20 17:00 96 10 104/64 (77) 97 06/09/20 16:00 99 11 100/64 (76) 97 06/09/20 16:00 100 06/09/20 16:00 98.0 99 11 100/64 (76) 97 06/09/20 16:00 Endotracheal Tube Endotracheal Tube 06/09/20 16:00 50 06/09/20 15:00 96 11 96/64 (75) 98 06/09/20 14:44 99 10 100 06/09/20 14:33 96 10 30 06/09/20 14:00 99 10 91/48 (62) 100 06/09/20 13:00 97.6 99 13 85/53 (64) 100 06/09/20 12:00 Endotracheal Tube Endotracheal Tube 06/09/20 12:00 91 06/09/20 12:00 50 06/09/20 12:00 91 10 80/45 (57) 100 06/09/20 11:20 87 10 50 06/09/20 11:04 Endotracheal Tube 06/09/20 11:00 82 10 91/55 (67) 100 06/09/20 10:15 86 10 128/69 (88) 100 Intake and Output 06/09/20 06/10/20 19:00 07:00 Intake Total 388.33 ml 1560 ml Output Total 2445 ml 960 ml Balance -2056.67 ml 600 ml Free Water 130 ml IV Total 368.33 ml 1100 ml Tube Feeding 20 ml 330 ml Output Urine Total 185 ml 260 ml Chest Tube Drainage Total 2260 ml 700 ml General Appearance: no acute distress Respiratory: chest wall non-tender, normal breath sounds, no respiratory distress, no accessory muscle use, decreased breath sounds Cardiovascular: normal peripheral pulses, normal rate Abdomen: normal bowel sounds Extremities: no cyanosis, no clubbing, no edema Microbiology Date/Time Source Procedure Growth Status 06/09/20 14:50 Sputum Gram Stain - Final Resulted 06/09/20 14:50 Sputum Sputum Culture Pending Resulted 06/09/20 10:40 Body Fluid Gram Stain - Final Resulted 06/09/20 10:40 Body Fluid Body Fluid Culture Pending Resulted Laboratory Tests 06/09/20 10:16: Arterial Blood pH 7.393, Arterial Blood Partial Pressure CO2 46.0H, Arterial Blood Partial Pressure O2 580.6H, Arterial Blood HCO3 27.4H, Arterial Blood Oxygen Saturation 99.7, Arterial Blood Base Excess 2.0, Sammy Test Positive 06/10/20 03:15: White Blood Count 16.2H, Red Blood Count 3.97L, Hemoglobin 11.3L, Hematocrit 33.6L, Mean Corpuscular Volume 85, Mean Corpuscular Hemoglobin 28.5, Mean Corpuscular Hemoglobin Concent 33.6, Red Cell Distribution Width 14.3, Platelet Count 290, Mean Platelet Volume 6.0L, Neutrophils (%) (Auto) , Lymphocytes (%) (Auto) , Monocytes (%) (Auto) , Eosinophils (%) (Auto) , Basophils (%) (Auto) , Differential Total Cells Counted 100, Neutrophils % (Manual) 97H, Lymphocytes % (Manual) 3L, Monocytes % (Manual) 0L, Eosinophils % (Manual) 0, Basophils % (Manual) 0, Band Neutrophils 0, Platelet Estimate Adequate, Platelet Morphology Normal, Red Blood Cell Morphology Normal, C-Reactive Protein, Quantitative 17.9H , Pro-B-Type Natriuretic Peptide 26001L 06/10/20 04:29: Ionized Calcium (Measured) 0.93L 06/10/20 05:45: Sodium Level 136, Potassium Level 4.5, Chloride Level 102, Carbon Dioxide Level 26, Anion Gap 9, Blood Urea Nitrogen 78H, Creatinine 1.5H, Estimat Glomerular Filtration Rate 35.3, Glucose Level 335#H, Calcium Level 7.8L, Phosphorus Level 2.5, Magnesium Level 2.4, Total Bilirubin 0.4, Aspartate Amino Transf (AST/SGOT) 53H, Alanine Aminotransferase (ALT/SGPT) 19, Alkaline Phosphatase 87, Total P rotein 4.8L, Albumin 2.1L, Globulin 2.7, Albumin/Globulin Ratio 0.8L Current Medications Medications (Trade) Dose Ordered Sig/Jennie Route PRN Reason Start Time Stop Time Status Last Admin Dose Admin Acetaminophen (Tylenol) 500 mg Q6H PRN ORAL Mild Pain (Pain Scale 1-3) 05/19/20 16:45 06/18/20 16:44 Acetaminophen/ Hydrocodone Bitart ([place] ) 1 tab Q4H PRN ORAL Pain Scale (6-10) 06/09/20 11:00 06/16/20 10:59 Acetaminophen/ Hydrocodone Bitart ([place] 5/325) 1 tab Q4H PRN ORAL Moderate Pain (Pain Scale 4-6) 06/09/20 11:00 06/16/20 10:59 Allopurinol (allopurinoL) 300 mg DAILY ORAL 06/06/20 11:00 07/06/20 10:59 06/10/20 08:37 Cefepime HCl 1 gm/ Dextrose 55 ml @ 110 mls/hr EVERY 12 HOURS IVPB 06/09/20 10:45 06/16/20 10:44 06/10/20 08:37 Clonidine HCl (Catapres Tab) 0.1 mg Q4H PRN ORAL SBP > 170 05/24/20 13:15 08/22/20 13:14 Dexamethasone Sodium Phosphate (Decadron 4mg/ml vial) 4 mg DAILY IVP 06/07/20 12:30 09/05/20 12:29 06/10/20 08:37 Dextrose (Dextrose 50%) 25 ml Q30M PRN IV Hypoglycemia 06/10/20 06:45 09/08/20 06:44 Dextrose (Dextrose 50%) 50 ml Q30M PRN IV Hypoglycemia 06/10/20 06:45 09/08/20 06:44 Dextrose/ Electrolytes 1,000 ml @ 50 mls/hr Q20H IV 06/09/20 12:00 07/09/20 11:59 06/10/20 08:37 Docusate Sodium (Colace) 100 mg TWICE A DAY ORAL 05/22/20 18:00 06/21/20 17:59 06/10/20 08:37 Enoxaparin Sodium (Lovenox) 40 mg DAILY SUBQ 06/02/20 09:00 08/31/20 08:59 06/10/20 09:49 Insulin Aspart (NovoLOG) BEFORE MEALS AND HS SUBQ 06/05/20 06:30 09/03/20 06:29 06/10/20 06:20 Insulin Detemir (Levemir) 10 units DAILY SUBQ 06/10/20 09:00 09/08/20 08:59 06/10/20 09:04 Metolazone (Zaroxolyn) 5 mg DAILY ORAL 06/01/20 12:00 11/4/20 11:59 06/07/20 09:00 Midodrine (Pro-Amatine) 10 mg THREE TIMES A DAY ORAL 06/08/20 13:00 09/06/20 12:59 06/10/20 08:37 Mirtazapine (Remeron) 7.5 mg BEDTIME ORAL 06/02/20 21:00 08/31/20 20:59 06/09/20 20:48 Morphine Sulfate (Morphine Sulfate) 2 mg Q4H PRN IVP Severe Pain (Pain Scale 7-10) 06/09/20 11:00 06/16/20 10:59 Pantoprazole (Protonix) 40 mg DAILY IVP 06/08/20 09:00 07/08/20 08:59 06/10/20 08:37 Sodium Chloride 500 ml @ 999 mls/hr Q31M PRN IV For hypotension 06/09/20 17:00 07/09/20 16:59 06/09/20 21:08 Assessment/Plan Assessment/Plan IMPRESSION: 1. History of CML, on dasatinib. 2. Possible pneumonia. 3. Large pleural effusion, s/p B thoracentesis. 4. Hypertension. 5. Elevated D-dimer DISCUSSION: S/p VATS, B Pleurex and lung biopsy Currently intubated; attempt to wean Wean in Am Careful ICU care IV fluids DVT prophylaxis Michelet Hernandez Omar Syed MD Jun 10, 2020 10:14
--- NOTE | 2020-06-10 10:48 | Infectious Diseases Prog Note ---
Assessment/Plan Assessment/Plan IMPRESSION: Leukocytosis, steroid related systemic inflammatory response syndrome or sepsis, Recurrent pleural effusion, CML, Accelerated hypertension, Elevation of troponin. Hypoxemia Hyperglycemia Anxiety disorder Perioperative respiratory failure Azotemia RECOMMENDATION: Start on Cefepime Subjective ROS Limited/Unobtainable: Yes Respiratory: Reports: other - on weaning process Allergies: Coded Allergies: No Known Allergies (Unverified , 05/19/20) Objective Last 24 Hour Vital Signs Date Time Temp Pulse Resp B/P (MAP) Pulse Ox O2 Delivery O2 Flow Rate FiO2 06/10/20 10:10 30 06/10/20 08:00 30 06/10/20 07:45 96 15 30 06/10/20 07:00 95 19 96/52 (67) 100 06/10/20 06:00 92 15 97/58 (71) 96 06/10/20 05:00 95 17 91/48 (62) 99 06/10/20 04:00 92 06/10/20 04:00 98.4 92 21 96/60 (72) 100 06/10/20 04:00 Endotracheal Tube Endotracheal Tube 06/10/20 04:00 50 06/10/20 03:00 95 24 97/64 (75) 100 06/10/20 02:44 97 16 30 06/10/20 02:00 96 12 91/57 (68) 97 06/10/20 01:00 101 14 88/52 (64) 96 06/10/20 00:00 50 06/10/20 00:00 98.4 96 12 92/60 (71) 97 06/10/20 00:00 Endotracheal Tube Endotracheal Tube 06/10/20 00:00 96 06/09/20 23:17 92 10 30 06/09/20 23:00 95 23 97/65 (76) 99 06/09/20 22:00 94 12 105/53 (70) 99 06/09/20 21:12 95 15 103/57 (72) 98 06/09/20 21:00 95 12 80/50 (60) 96 06/09/20 20:00 50 06/09/20 20:00 88 06/09/20 20:00 98.1 98 16 91/59 (70) 97 06/09/20 20:00 Endotracheal Tube Endotracheal Tube 06/09/20 19:37 94 15 30 06/09/20 19:00 84 15 100/65 (77) 98 06/09/20 18:00 91 26 92/51 (65) 100 06/09/20 17:00 96 10 104/64 (77) 97 06/09/20 16:00 99 11 100/64 (76) 97 06/09/20 16:00 100 06/09/20 16:00 98.0 99 11 100/64 (76) 97 06/09/20 16:00 Endotracheal Tube Endotracheal Tube 06/09/20 16:00 50 06/09/20 15:00 96 11 96/64 (75) 98 06/09/20 14:44 99 10 100 06/09/20 14:33 96 10 30 06/09/20 14:00 99 10 91/48 (62) 100 06/09/20 13:00 97.6 99 13 85/53 (64) 100 06/09/20 12:00 Endotracheal Tube Endotracheal Tube 06/09/20 12:00 91 06/09/20 12:00 50 06/09/20 12:00 91 10 80/45 (57) 100 06/09/20 11:20 87 10 50 06/09/20 11:04 Endotracheal Tube 06/09/20 11:00 82 10 91/55 (67) 100 Height (Feet): 5 Height (Inches): 0.00 Weight (Pounds): 111 HEENT: mucous membranes moist, other - orally intubated Respiratory/Chest: lungs clear, other - bilateral chest tubes Cardiovascular: normal rate Abdomen: soft, non tender Extremities: no edema Neurologic/Psychiatric: other - sedated Microbiology Date/Time Source Procedure Growth Status 06/09/20 14:50 Sputum Gram Stain - Final Resulted 06/09/20 14:50 Sputum Sputum Culture Pending Resulted 06/09/20 10:40 Body Fluid Gram Stain - Final Resulted 06/09/20 10:40 Body Fluid Body Fluid Culture Pending Resulted Laboratory Tests Test 06/10/20 03:15 06/10/20 04:29 06/10/20 05:45 White Blood Count 16.2 K/UL (4.8-10.8) H Red Blood Count 3.97 M/UL (4.20-5.40) L Hemoglobin 11.3 G/DL (12.0-16.0) L Hematocrit 33.6 % (37.0-47.0) L Mean Corpuscular Volume 85 FL (80-99) Mean Corpuscular Hemoglobin 28.5 PG (27.0-31.0) Mean Corpuscular Hemoglobin Concent 33.6 G/DL (32.0-36.0) Red Cell Distribution Width 14.3 % (11.6-14.8) Platelet Count 290 K/UL (150-450) Mean Platelet Volume 6.0 FL (6.5-10.1) L Neutrophils (%) (Auto) % (45.0-75.0) Lymphocytes (%) (Auto) % (20.0-45.0) Monocytes (%) (Auto) % (1.0-10.0) Eosinophils (%) (Auto) % (0.0-3.0) Basophils (%) (Auto) % (0.0-2.0) Differential Total Cells Counted 100 Neutrophils % (Manual) 97 % (45-75) H Lymphocytes % (Manual) 3 % (20-45) L Monocytes % (Manual) 0 % (1-10) L Eosinophils % (Manual) 0 % (0-3) Basophils % (Manual) 0 % (0-2) Band Neutrophils 0 % (0-8) Platelet Estimate Adequate Platelet Morphology Normal Red Blood Cell Morphology Normal C-Reactive Protein, Quantitative 17.9 mg/dL (0.00-0.90) H Pro-B-Type Natriuretic Peptide 03662 pg/mL (0-125) H Ionized Calcium (Measured) 0.93 mmol/L (1.10-1.35) L Sodium Level 136 MMOL/L (136-145) Potassium Level 4.5 MMOL/L (3.5-5.1) Chloride Level 102 MMOL/L (98-107) Carbon Dioxide Level 26 MMOL/L (21-32) Anion Gap 9 mmol/L (5-15) Blood Urea Nitrogen 78 mg/dL (7-18) H Creatinine 1.5 MG/DL (0.55-1.30) H Estimat Glomerular Filtration Rate 35.3 mL/min (>60) Glucose Level 335 MG/DL (74-106) #H Calcium Level 7.8 MG/DL (8.5-10.1) L Phosphorus Level 2.5 MG/DL (2.5-4.9) Magnesium Level 2.4 MG/DL (1.8-2.4) Total Bilirubin 0.4 MG/DL (0.2-1.0) Aspartate Amino Transf (AST/SGOT) 53 U/L (15-37) H Alanine Aminotransferase (ALT/SGPT) 19 U/L (12-78) Alkaline Phosphatase 87 U/L (46-116) Total Protein 4.8 G/DL (6.4-8.2) L Albumin 2.1 G/DL (3.4-5.0) L Globulin 2.7 g/dL Albumin/Globulin Ratio 0.8 (1.0-2.7) L Current Medications Medications (Trade) Dose Ordered Sig/Jennie Route PRN Reason Start Time Stop Time Status Last Admin Dose Admin Acetaminophen (Tylenol) 500 mg Q6H PRN ORAL Mild Pain (Pain Scale 1-3) 05/19/20 16:45 06/18/20 16:44 Acetaminophen/ Hydrocodone Bitart ([place] 10/325) 1 tab Q4H PRN ORAL Pain Scale (6-10) 06/09/20 11:00 06/16/20 10:59 Acetaminophen/ Hydrocodone Bitart ([place] 5/325) 1 tab Q4H PRN ORAL Moderate Pain (Pain Scale 4-6) 06/09/20 11:00 06/16/20 10:59 Allopurinol (allopurinoL) 300 mg DAILY ORAL 06/06/20 11:00 07/06/20 10:59 06/10/20 08:37 Cefepime HCl 1 gm/ Dextrose 55 ml @ 110 mls/hr EVERY 12 HOURS IVPB 06/09/20 10:45 06/16/20 10:44 06/10/20 08:37 Clonidine HCl (Catapres Tab) 0.1 mg Q4H PRN ORAL SBP > 170 05/24/20 13:15 08/22/20 13:14 Dexamethasone Sodium Phosphate (Decadron 4mg/ml vial) 4 mg DAILY IVP 06/07/20 12:30 09/05/20 12:29 06/10/20 08:37 Dextrose (Dextrose 50%) 25 ml Q30M PRN IV Hypoglycemia 06/10/20 06:45 09/08/20 06:44 Dextrose (Dextrose 50%) 50 ml Q30M PRN IV Hypoglycemia 06/10/20 06:45 09/08/20 06:44 Dextrose/ Electrolytes 1,000 ml @ 50 mls/hr Q20H IV 06/09/20 12:00 07/09/20 11:59 06/10/20 08:37 Docusate Sodium (Colace) 100 mg TWICE A DAY ORAL 05/22/20 18:00 06/21/20 17:59 06/10/20 08:37 Enoxaparin Sodium (Lovenox) 40 mg DAILY SUBQ 06/02/20 09:00 08/31/20 08:59 06/10/20 09:49 Insulin Aspart (NovoLOG) BEFORE MEALS AND HS SUBQ 06/05/20 06:30 09/03/20 06:29 06/10/20 06:20 Insulin Detemir (Levemir) 10 units DAILY SUBQ 06/10/20 09:00 09/08/20 08:59 06/10/20 09:04 Metolazone (Zaroxolyn) 5 mg DAILY ORAL 06/01/20 12:00 07/01/20 11:59 06/07/20 09:00 Midodrine (Pro-Amatine) 10 mg THREE TIMES A DAY ORAL 06/08/20 13:00 09/06/20 12:59 06/10/20 08:37 Mirtazapine (Remeron) 7.5 mg BEDTIME ORAL 06/02/20 21:00 08/31/20 20:59 06/09/20 20:48 Morphine Sulfate (Morphine Sulfate) 2 mg Q4H PRN IVP Severe Pain (Pain Scale 7-10) 06/09/20 11:00 06/16/20 10:59 Pantoprazole (Protonix) 40 mg DAILY IVP 06/08/20 09:00 07/08/20 08:59 06/10/20 08:37 Sodium Chloride 500 ml @ 999 mls/hr Q31M PRN IV For hypotension 06/09/20 17:00 07/09/20 16:59 06/09/20 21:08 Timothy Pennington MD Jun 10, 2020 10:48
--- NOTE | 2020-06-10 12:26 | Nephrology Progress Note ---
Assessment/Plan Problem List: (1) ASHLEY (acute kidney injury) (2) Bilateral pleural effusion (3) Leukemia Assessment Imp: Acute renal failure, with sudden jump in serum creatinine to 2.7 History of leukemia Hypertension, now hypotensive Hyponatremia on admission, improved Bilateral pleural effusion. Status post paracentesis. Elevated troponin, most likely leak. Plan June 10: Patient remains in ICU. Has chest tubes on the left and on the right. Remains intubated on ventilator. Due for weaning today. Labs reviewed. BUN and creatinine marli. Will change the IV to normal saline 50 cc an hour. Will discontinue Zaroxolyn. We will continue to monitor renal parameters and electrolytes. Continue per consultants. June 09: Patient now in ICU postop. Has bilateral chest tube. Intubated on ventilator. Today's labs reviewed. Continue per consultants. Continue to monitor renal parameters. June 08: Status quo. Continues on BiPAP. Due for VATS tomorrow. Start midodrine for low blood pressure. June 06: Status unchanged. Labs reviewed. Renal parameters stable. Continue per consultants. Remains full code. Remains on BiPAP. June 05: Electrolytes now normalized. Discussed with RN. Patient due for VATS surgery early next week. Continue current pulmonary support and monitor renal parameters. June 04: Potassium low. Creatinine higher. Will discontinue IV Lasix as the patient already on metolazone. Potassium supplement ordered. 250 mL of 3% saline ordered. Continue to monitor electrolytes and renal parameters. Continue per consultants. June 03: Discussed with Dr. Olson. Patient's pleural effusions continue to be a challenge. Patient on diuretics. Will watch renal parameters and electrolytes. Patient was already tapped twice. Continue per current management. June 02: No chemistry panel done today. Status unchanged. Remains on nonrebreathing mask. Will check lab tomorrow. Continue per pulmonary. June 01: Labs reviewed. Status unchanged. Remains on nonrebreathing mask. Will increase his Lasix to 40 twice daily. Stable electrolytes and renal parameters at this time. May 31: No chemistry panel done today. Patient still on nonrebreathing mask. Patient full code. Will check lab tomorrow. Patient's main issue is respiratory. May 30: Labs reviewed. Renal parameters stable. Continue per pulmonary. May 29: No chemistry panel done today. Remains on nonrebreather mask. Will order labs tomorrow. Continue per consultants. May 28: Serum creatinine up to 1.5. Remains on nonrebreather mask. Since admission had 3 thoracenteses for pleural effusion over the left and right. Respiratory status remains unstable. Continue per pulmonary. Will watch renal parameters. May 27: When seen the patient was on 100% nonrebreather mask. Renal panel within normal limit. Continue per consultants. Main problem remains respiratory. May 26: Renal parameters stable. Started on Lasix 40 mg daily. Continue to monitor renal parameters and electrolytes. Continue per consultants. May 25: Renal parameters within normal limit. Another dose of IV Lasix given. Continue to monitor electrolytes. Continue per consultants. May 24: Renal parameters normalized. Will give the Lasix 40 mg IV once. 1 dose of Kayexalate for hyperkalemia. Continue to monitor renal parameters. Previously: Today renal parameters are improved. Serum creatinine down to 1.6 from 2.7 Continue to hold lisinopril Continue to hold Lasix Half Normal saline 100 cc an hour one liter only was given yesterday Albumin bolus given yesterday, repeat as needed Monitor renal parameters Avoid nephrotoxic's Subjective ROS Limited/Unobtainable: Yes Objective Objective Last 24 Hour Vital Signs Date Time Temp Pulse Resp B/P (MAP) Pulse Ox O2 Delivery O2 Flow Rate FiO2 06/10/20 11:00 93 22 106/60 (75) 99 06/10/20 10:10 30 06/10/20 10:00 95 20 98/60 (73) 98 06/10/20 09:00 97 23 100/56 (71) 99 06/10/20 08:00 Endotracheal Tube Endotracheal Tube 06/10/20 08:00 30 06/10/20 08:00 98.4 98 24 119/58 (78) 98 06/10/20 07:45 96 15 30 06/10/20 07:00 95 19 96/52 (67) 100 06/10/20 06:00 92 15 97/58 (71) 96 06/10/20 05:00 95 17 91/48 (62) 99 06/10/20 04:00 92 06/10/20 04:00 98.4 92 21 96/60 (72) 100 06/10/20 04:00 Endotracheal Tube Endotracheal Tube 06/10/20 04:00 50 06/10/20 03:00 95 24 97/64 (75) 100 06/10/20 02:44 97 16 30 06/10/20 02:00 96 12 91/57 (68) 97 06/10/20 01:00 101 14 88/52 (64) 96 06/10/20 00:00 50 06/10/20 00:00 98.4 96 12 92/60 (71) 97 06/10/20 00:00 Endotracheal Tube Endotracheal Tube 06/10/20 00:00 96 06/09/20 23:17 92 10 30 06/09/20 23:00 95 23 97/65 (76) 99 06/09/20 22:00 94 12 105/53 (70) 99 06/09/20 21:12 95 15 103/57 (72) 98 06/09/20 21:00 95 12 80/50 (60) 96 06/09/20 20:00 50 06/09/20 20:00 88 06/09/20 20:00 98.1 98 16 91/59 (70) 97 06/09/20 20:00 Endotracheal Tube Endotracheal Tube 06/09/20 19:37 94 15 30 06/09/20 19:00 84 15 100/65 (77) 98 06/09/20 18:00 91 26 92/51 (65) 100 06/09/20 17:00 96 10 104/64 (77) 97 06/09/20 16:00 99 11 100/64 (76) 97 06/09/20 16:00 100 06/09/20 16:00 98.0 99 11 100/64 (76) 97 06/09/20 16:00 Endotracheal Tube Endotracheal Tube 06/09/20 16:00 50 06/09/20 15:00 96 11 96/64 (75) 98 06/09/20 14:44 99 10 100 06/09/20 14:33 96 10 30 06/09/20 14:00 99 10 91/48 (62) 100 06/09/20 13:00 97.6 99 13 85/53 (64) 100 Intake and Output 06/09/20 06/10/20 19:00 07:00 Intake Total 388.33 ml 1560 ml Output Total 2445 ml 960 ml Balance -2056.67 ml 600 ml Free Water 130 ml IV Total 368.33 ml 1100 ml Tube Feeding 20 ml 330 ml Output Urine Total 185 ml 260 ml Chest Tube Drainage Total 2260 ml 700 ml Laboratory Tests 06/10/20 03:15: White Blood Count 16.2H, Red Blood Count 3.97L, Hemoglobin 11.3L, Hematocrit 33.6L, Mean Corpuscular Volume 85, Mean Corpuscular Hemoglobin 28.5, Mean Corpuscular Hemoglobin Concent 33.6, Red Cell Distribution Width 14.3, Platelet Count 290, Mean Platelet Volume 6.0L, Neutrophils (%) (Auto) , Lymphocytes (%) (Auto) , Monocytes (%) (Auto) , Eosinophils (%) (Auto) , Basophils (%) (Auto) , Differential Total Cells Counted 100, Neutrophils % (Manual) 97H, Lymphocytes % (Manual) 3L, Monocytes % (Manual) 0L, Eosinophils % (Manual) 0, Basophils % (Manual) 0, Band Neutrophils 0, Platelet Estimate Adequate, Platelet Morphology Normal, Red Blood Cell Morphology Normal, C-Reactive Protein, Quantitative 17.9H , Pro-B-Type Natriuretic Peptide [id number] 06/10/20 04:29: Ionized Calcium (Measured) 0.93L 06/10/20 05:45: Sodium Level 136, Potassium Level 4.5, Chloride Level 102, Carbon Dioxide Level 26, Anion Gap 9, Blood Urea Nitrogen 78H, Creatinine 1.5H, Estimat Glomerular Filtration Rate 35.3, Glucose Level 335#H, Calcium Level 7.8L, Phosphorus Level 2.5, Magnesium Level 2.4, Total Bilirubin 0.4, Aspartate Amino Transf (AST/SGOT) 53H, Alanine Aminotransferase (ALT/SGPT) 19, Alkaline Phosphatase 87, Total Protein 4.8L, Albumin 2.1L, Globulin 2.7, Albumin/Globulin Ratio 0.8L Height (Feet): 5 Height (Inches): 0.00 Weight (Pounds): 111 General Appearance: no apparent distress EENT: other - Intubated on the ventilator Cardiovascular: tachycardia - Heart rate mid 90s Respiratory/Chest: other - Intubated on ventilator bilateral chest tube Objective No change Montrell Carpio MD Jun 10, 2020 12:26
--- NOTE | 2020-06-10 13:57 | Hematology/Onc Progress Note ---
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 Joseph has accessed--> for biospy pleural --> 06/[address] --> imaging q2-3 days # HTN --> hydralazine and lisinopril --> sbp goal <140 # Dehydration --> goal of euvolemia # Elevated ddimer --> duplex lower ext r/o dvt==>neg # Dvt ppx lovenox sq Appreciate consultation and zachariah RN Subjective Constitutional: Denies: no symptoms, chills, fever, malaise, weakness, other HEENT: Denies: no symptoms, eye pain, blurred vision, tearing, double vision, ear pain, ear discharge, nose pain, nose congestion, throat pain, throat swelling, mouth pain, mouth swelling, other Cardiovascular: Denies: no symptoms, chest pain, edema, irregular heart rate, lightheadedness, palpitations, syncope, other Respiratory: Denies: no symptoms, cough, shortness of breath, SOB with excertion, SOB at rest, sputum, wheezing, other Genitourinary: Denies: no symptoms, burning, discharge, frequency, flank pain, hematuria, incontinence, pain, urgency, other Neurologic/Psychiatric: Denies: no symptoms, anxiety, depressed, emotional problems, headache, numbness, paresthesia, pre-existing deficit, seizure, tingling, tremors, weakness, other Endocrine: Denies: no symptoms, excessive sweating, flushing, intolerance to cold, intolerance to heat, increased hunger, increased thirst, increased urine, unexplained weight gain, unexplained weight loss, other Allergies: Coded Allergies: No Known Allergies (Unverified , 05/19/20) Subjective 05/21 labs are noted, no bleeding, with pleural effusions due to desatanbib, s/p thora 05/22 labs are noted, no bleeding, on bipap, i dw her today to stop her med at once 05/24 wbc is improved, continue on ctx for one more day per id, bipap 05/26 have ordered for repeat cxr this am to reeval pleural effusions, labs noted 05/27 with b/l pleural effusions, aware from pulm, thora prn 05/28 has been refusing scds, thus will start lovenox today, breathing better s/p thora 05/29 with nonrebreather, for thora today, no night sweats, meds noted 05/31 remains on bipap, meds reviewed, off desatanib, worse effusion r>l 06/01 on bipap this am, labs pending for am 06/02 unable to wean off facemask, requiring it, will dw sister today 06/03 labs reviewed, meds noted, continues to be bipap support 06/04 no aspiration, is comfortable, meds reviewed, no bleeding 06/05 dw pulm yes, may need ct surg eval, chest tube, started steriods 06/06: labs reviewed no acute events overnight. 06/07 comfortable, no bleeding, meds reviewed, is on bipap still 06/08 labs reviewed, imaging noted, is on bipap this am 06/09 wbc higher, for procedure today, by cts, may get pleural biopsy 06/10 ct placed yest, today in am was intubated, but now extubated on nc in afternoon, zachariah Rn Objective Objective Current Medications Medications (Trade) Dose Ordered Sig/Jennie Route PRN Reason Start Time Stop Time Status Last Admin Dose Admin Acetaminophen (Tylenol) 500 mg Q6H PRN ORAL Mild Pain (Pain Scale 1-3) 05/19/20 16:45 06/18/20 16:44 Acetaminophen/ Hydrocodone Bitart ([place] [address]) 1 tab Q4H PRN ORAL Pain Scale (6-10) 06/09/20 11:00 06/16/20 10:59 Acetaminophen/ Hydrocodone Bitart ([place] 5/325) 1 tab Q4H PRN ORAL Moderate Pain (Pain Scale 4-6) 06/09/20 11:00 06/16/20 10:59 Allopurinol (allopurinoL) 300 mg DAILY ORAL 06/06/20 11:00 07/06/20 10:59 06/10/20 08:37 Cefepime HCl 1 gm/ Dextrose 55 ml @ 110 mls/hr EVERY 12 HOURS IVPB 06/09/20 10:45 06/16/20 10:44 06/10/20 08:37 Clonidine HCl (Catapres Tab) 0.1 mg Q4H PRN ORAL SBP > 170 05/24/20 13:15 08/22/20 13:14 Dexamethasone Sodium Phosphate (Decadron 4mg/ml vial) 4 mg DAILY IVP 06/07/20 12:30 09/05/20 12:29 06/10/20 08:37 Dextrose (Dextrose 50%) 25 ml Q30M PRN IV Hypoglycemia 06/10/20 06:45 09/08/20 06:44 Dextrose (Dextrose 50%) 50 ml Q30M PRN IV Hypoglycemia 06/10/20 06:45 09/08/20 06:44 Docusate Sodium (Colace) 100 mg TWICE A DAY ORAL 05/22/20 18:00 06/21/20 17:59 06/10/20 08:37 Enoxaparin Sodium (Lovenox) 40 mg DAILY SUBQ 06/02/20 09:00 08/31/20 08:59 06/08/20 08:41 Insulin Aspart (NovoLOG) BEFORE MEALS AND HS SUBQ 06/05/20 06:30 09/03/20 06:29 06/10/20 11:47 Insulin Detemir (Levemir) 10 units DAILY SUBQ 06/10/20 09:00 09/08/20 08:59 06/10/20 09:04 Midodrine (Pro-Amatine) 10 mg THREE TIMES A DAY ORAL 06/08/20 13:00 09/06/20 12:59 06/10/20 13:16 Mirtazapine (Remeron) 7.5 mg BEDTIME ORAL 06/02/20 21:00 08/31/20 20:59 06/09/20 20:48 Morphine Sulfate (Morphine Sulfate) 2 mg Q4H PRN IVP Severe Pain (Pain Scale 7-10) 06/09/20 11:00 06/16/20 10:59 Pantoprazole (Protonix) 40 mg DAILY IVP 06/08/20 09:00 07/08/20 08:59 06/10/20 08:37 Sodium Chloride 500 ml @ 999 mls/hr Q31M PRN IV For hypotension 06/09/20 17:00 07/09/20 16:59 06/09/20 21:08 Sodium Chloride 1,000 ml @ 50 mls/hr Q20H IV 06/10/20 13:00 07/10/20 12:59 06/10/20 13:16 Last 24 Hour Vital Signs Date Time Temp Pulse Resp B/P (MAP) Pulse Ox O2 Delivery O2 Flow Rate FiO2 06/10/20 13:30 Nasal Cannula 2.0 Nasal Cannula 2.0 06/10/20 13:00 89 20 111/70 (84) 98 06/10/20 12:00 Endotracheal Tube Endotracheal Tube 06/10/20 12:00 98.5 84 20 107/55 (72) 98 06/10/20 11:23 90 06/10/20 11:00 93 22 106/60 (75) 99 06/10/20 10:46 90 25 30 06/10/20 10:46 100 06/10/20 10:10 30 06/10/20 10:00 95 20 98/60 (73) 98 06/10/20 09:00 97 23 100/56 (71) 99 06/10/20 08:00 Endotracheal Tube Endotracheal Tube 06/10/20 08:00 30 06/10/20 08:00 98.4 98 24 119/58 (78) 98 06/10/20 07:45 96 15 30 06/10/20 07:44 98 06/10/20 07:00 95 19 96/52 (67) 100 06/10/20 06:00 92 15 97/58 (71) 96 06/10/20 05:00 95 17 91/48 (62) 99 06/10/20 04:00 92 06/10/20 04:00 98.4 92 21 96/60 (72) 100 06/10/20 04:00 Endotracheal Tube Endotracheal Tube 06/10/20 04:00 50 06/10/20 03:00 95 24 97/64 (75) 100 06/10/20 02:44 97 16 30 06/10/20 02:00 96 12 91/57 (68) 97 06/10/20 01:00 101 14 88/52 (64) 96 06/10/20 00:00 50 06/10/20 00:00 98.4 96 12 92/60 (71) 97 06/10/20 00:00 Endotracheal Tube Endotracheal Tube 06/10/20 00:00 96 06/09/20 23:17 92 10 30 06/09/20 23:00 95 23 97/65 (76) 99 06/09/20 22:00 94 12 105/53 (70) 99 06/09/20 21:12 95 15 103/57 (72) 98 06/09/20 21:00 95 12 80/50 (60) 96 06/09/20 20:00 50 06/09/20 20:00 88 06/09/20 20:00 98.1 98 16 91/59 (70) 97 06/09/20 20:00 Endotracheal Tube Endotracheal Tube 06/09/20 19:37 94 15 30 06/09/20 19:00 84 15 100/65 (77) 98 06/09/20 18:00 91 26 92/51 (65) 100 06/09/20 17:00 96 10 104/64 (77) 97 06/09/20 16:00 99 11 100/64 (76) 97 06/09/20 16:00 100 06/09/20 16:00 98.0 99 11 100/64 (76) 97 06/09/20 16:00 Endotracheal Tube Endotracheal Tube 06/09/20 16:00 50 06/09/20 15:00 96 11 96/64 (75) 98 06/09/20 14:44 99 10 100 06/09/20 14:33 96 10 30 06/09/20 14:00 99 10 91/48 (62) 100 06/09/20 13:00 97.6 99 13 85/53 (64) 100 06/09/20 12:00 Endotracheal Tube Endotracheal Tube 06/09/20 12:00 91 06/09/20 12:00 50 06/09/20 12:00 91 10 80/45 (57) 100 06/09/20 11:20 87 10 50 06/09/20 11:04 Endotracheal Tube 06/09/20 11:00 82 10 91/55 (67) 100 06/09/20 10:15 86 10 128/69 (88) 100 06/09/20 10:00 84 06/09/20 10:00 97.2 83 10 98/60 (73) 100 06/09/20 09:53 85 10 100 06/09/20 08:00 100 06/09/20 08:00 Bi-pap Bi-pap 06/09/20 08:00 97.2 86 22 137/68 (91) 100 06/09/20 07:19 100 Bi-Pap 100 06/09/20 06:40 86 18 100 100 06/09/20 04:00 Bi-pap Bi-pap 06/09/20 04:00 97.0 81 18 112/73 (86) 100 06/09/20 04:00 100 06/09/20 03:28 77 06/09/20 03:19 83 19 100 100 06/09/20 00:00 97.2 89 20 118/81 (93) 100 06/09/20 00:00 84 06/09/20 00:00 100 06/09/20 00:00 Bi-pap Bi-pap 06/08/20 22:58 78 28 100 100 06/08/20 20:00 97.2 89 23 119/74 (89) 99 06/08/20 20:00 82 06/08/20 20:00 100 06/08/20 20:00 Bi-pap Bi-pap 06/08/20 18:54 83 23 100 Bi-Pap 100 06/08/20 18:52 100 Bi-Pap 100 06/08/20 18:52 83 23 100 100 06/08/20 16:00 86 06/08/20 16:00 97.0 96 20 115/69 (84) 100 06/08/20 16:00 Bi-pap Bi-pap 06/08/20 16:00 100 06/08/20 15:19 88 30 100 100 Intake and Output 06/09/20 06/10/20 19:00 07:00 Intake Total 388.33 ml 1560 ml Output Total 2445 ml 960 ml Balance -2056.67 ml 600 ml Free Water 130 ml IV Total 368.33 ml 1100 ml Tube Feeding 20 ml 330 ml Output Urine Total 185 ml 260 ml Chest Tube Drainage Total 2260 ml 700 ml Labs Test 06/07/20 16:34 06/08/20 04:41 06/08/20 05:27 06/08/20 08:36 POC Whole Blood Glucose 86 MG/DL (74-106) 86 MG/DL (74-106) White Blood Count 11.2 K/UL (4.8-10.8) Red Blood Count 4.61 M/UL (4.20-5.40) Hemoglobin 13.0 G/DL (12.0-16.0) Hematocrit 39.4 % (37.0-47.0) Mean Corpuscular Volume 85 FL (80-99) Mean Corpuscular Hemoglobin 28.2 PG (27.0-31.0) Mean Corpuscular Hemoglobin Concent 33.0 G/DL (32.0-36.0) Red Cell Distribution Width 14.3 % (11.6-14.8) Platelet Count 391 K/UL (150-450) Mean Platelet Volume 5.9 FL (6.5-10.1) Neutrophils (%) (Auto) % (45.0-75.0) Lymphocytes (%) (Auto) % (20.0-45.0) Monocytes (%) (Auto) % (1.0-10.0) Eosinophils (%) (Auto) % (0.0-3.0) Basophils (%) (Auto) % (0.0-2.0) Sodium Level 139 MMOL/L (136-145) Potassium Level 4.1 MMOL/L (3.5-5.1) Chloride Level 100 MMOL/L (98-107) Carbon Dioxide Level 32 MMOL/L (21-32) Blood Urea Nitrogen 65 mg/dL (7-18) Creatinine 1.2 MG/DL (0.55-1.30) Estimat Glomerular Filtration Rate 45.7 mL/min (>60) Glucose Level 76 MG/DL (74-106) Calcium Level 9.0 MG/DL (8.5-10.1) Phosphorus Level 5.3 MG/DL (2.5-4.9) Magnesium Level 2.6 MG/DL (1.8-2.4) Total Bilirubin 0.3 MG/DL (0.2-1.0) Aspartate Amino Transf (AST/SGOT) 31 U/L (15-37) Alanine Aminotransferase (ALT/SGPT) 9 U/L (12-78) Alkaline Phosphatase 51 U/L (46-116) C-Reactive Protein, Quantitative 8.5 mg/dL (0.00-0.90) Pro-B-Type Natriuretic Peptide 12522 pg/mL (0-125) Total Protein 5.7 G/DL (6.4-8.2) Albumin 2.0 G/DL (3.4-5.0) Globulin 3.7 g/dL Albumin/Globulin Ratio 0.5 (1.0-2.7) Test 06/08/20 12:04 06/08/20 17:20 06/08/20 20:35 06/09/20 04:35 POC Whole Blood Glucose 193 MG/DL (74-106) White Blood Count 16.8 K/UL (4.8-10.8) Red Blood Count 4.58 M/UL (4.20-5.40) Hemoglobin 13.1 G/DL (12.0-16.0) Hematocrit 38.9 % (37.0-47.0) Mean Corpuscular Volume 85 FL (80-99) Mean Corpuscular Hemoglobin 28.5 PG (27.0-31.0) Mean Corpuscular Hemoglobin Concent 33.6 G/DL (32.0-36.0) Red Cell Distribution Width 14.3 % (11.6-14.8) Platelet Count 393 K/UL (150-450) Mean Platelet Volume 6.2 FL (6.5-10.1) Neutrophils (%) (Auto) % (45.0-75.0) Lymphocytes (%) (Auto) % (20.0-45.0) Monocytes (%) (Auto) % (1.0-10.0) Eosinophils (%) (Auto) % (0.0-3.0) Basophils (%) (Auto) % (0.0-2.0) Differential Total Cells Counted 100 Neutrophils % (Manual) 88 % (45-75) Lymphocytes % (Manual) 6 % (20-45) Monocytes % (Manual) 5 % (1-10) Eosinophils % (Manual) 0 % (0-3) Basophils % (Manual) 0 % (0-2) Metamyelocytes % 1 % (0-0) Band Neutrophils 0 % (0-8) Platelet Estimate Adequate Platelet Morphology Normal Red Blood Cell Morphology Normal Test 06/09/20 05:32 06/09/20 10:10 06/09/20 10:16 06/10/20 03:15 POC Whole Blood Glucose 151 MG/DL (74-106) White Blood Count 16.6 K/UL (4.8-10.8) 16.2 K/UL (4.8-10.8) Red Blood Count 4.90 M/UL (4.20-5.40) 3.97 M/UL (4.20-5.40) Hemoglobin 13.9 G/DL (12.0-16.0) 11.3 G/DL (12.0-16.0) Hematocrit 41.7 % (37.0-47.0) 33.6 % (37.0-47.0) Mean Corpuscular Volume 85 FL (80-99) 85 FL (80-99) Mean Corpuscular Hemoglobin 28.3 PG (27.0-31.0) 28.5 PG (27.0-31.0) Mean Corpuscular Hemoglobin Concent 33.3 G/DL (32.0-36.0) 33.6 G/DL (32.0-36.0) Red Cell Distribution Width 14.3 % (11.6-14.8) 14.3 % (11.6-14.8) Platelet Count 393 K/UL (150-450) 290 K/UL (150-450) Mean Platelet Volume 5.9 FL (6.5-10.1) 6.0 FL (6.5-10.1) Neutrophils (%) (Auto) 91.0 % (45.0-75.0) % (45.0-75.0) Lymphocytes (%) (Auto) 3.0 % (20.0-45.0) % (20.0-45.0) Monocytes (%) (Auto) 4.0 % (1.0-10.0) % (1.0-10.0) Eosinophils (%) (Auto) 1.0 % (0.0-3.0) % (0.0-3.0) Basophils (%) (Auto) 1.0 % (0.0-2.0) % (0.0-2.0) Sodium Level 139 MMOL/L (136-145) Potassium Level 3.6 MMOL/L (3.5-5.1) Chloride Level 99 MMOL/L (98-107) Carbon Dioxide Level 27 MMOL/L (21-32) Anion Gap 13 mmol/L (5-15) Blood Urea Nitrogen 68 mg/dL (7-18) Creatinine 1.0 MG/DL (0.55-1.30) Estimat Glomerular Filtration Rate 56.4 mL/min (>60) Glucose Level 200 MG/DL (74-106) Calcium Level 8.6 MG/DL (8.5-10.1) Ionized Calcium (Measured) 1.09 mmol/L (1.10-1.35) Phosphorus Level 4.0 MG/DL (2.5-4.9) Magnesium Level 2.5 MG/DL (1.8-2.4) Arterial Blood pH 7.393 (7.350-7.450) Arterial Blood Partial Pressure CO2 46.0 mmHg (35.0-45.0) Arterial Blood Partial Pressure O2 580.6 mmHg (75.0-100.0) Arterial Blood HCO3 27.4 mmol/L (22.0-26.0) Arterial Blood Oxygen Saturation 99.7 % (95-100) Arterial Blood Base Excess 2.0 (-2-2) Sammy Test Positive Differential Total Cells Counted 100 Neutrophils % (Manual) 97 % (45-75) Lymphocytes % (Manual) 3 % (20-45) Monocytes % (Manual) 0 % (1-10) Eosinophils % (Manual) 0 % (0-3) Basophils % (Manual) 0 % (0-2) Band Neutrophils 0 % (0-8) Platelet Estimate Adequate Platelet Morphology Normal Red Blood Cell Morphology Normal C-Reactive Protein, Quantitative 17.9 mg/dL (0.00-0.90) Pro-B-Type Natriuretic Peptide 54436 pg/mL (0-125) Test 06/10/20 04:29 06/10/20 05:45 Ionized Calcium (Measured) 0.93 mmol/L (1.10-1.35) Sodium Level 136 MMOL/L (136-145) Potassium Level 4.5 MMOL/L (3.5-5.1) Chloride Level 102 MMOL/L (98-107) Carbon Dioxide Level 26 MMOL/L (21-32) Anion Gap 9 mmol/L (5-15) Blood Urea Nitrogen 78 mg/dL (7-18) Creatinine 1.5 MG/DL (0.55-1.30) Estimat Glomerular Filtration Rate 35.3 mL/min (>60) Glucose Level 335 MG/DL (74-106) Calcium Level 7.8 MG/DL (8.5-10.1) Phosphorus Level 2.5 MG/DL (2.5-4.9) Magnesium Level 2.4 MG/DL (1.8-2.4) Total Bilirubin 0.4 MG/DL (0.2-1.0) Aspartate Amino Transf (AST/SGOT) 53 U/L (15-37) Alanine Aminotransferase (ALT/SGPT) 19 U/L (12-78) Alkaline Phosphatase 87 U/L (46-116) Total Protein 4.8 G/DL (6.4-8.2) Albumin 2.1 G/DL (3.4-5.0) Globulin 2.7 g/dL Albumin/Globulin Ratio 0.8 (1.0-2.7) Micro Microbiology Date/Time Source Procedure Growth Status 06/09/20 14:50 Sputum Gram Stain - Final Resulted 06/09/20 14:50 Sputum Sputum Culture Pending Resulted Height (Feet): 5 Height (Inches): 0.00 Weight (Pounds): 111 Objective Physical Exam: Vitals: reviewed General: NAD HEENT: nc, at Neck: supple Chest: clear breath sounds bilaterally ++ left sided chest tube Cardiovascular: RRR, no s3, s4 Abdomen: soft, nontender, nd Extremities: no cce, normal range of motion Dionicio Higgins MD Jun 10, 2020 13:57
[2020-06-10] MEDS ORDERED: NS 275ml ONE (14:14)
[2020-06-10] MEDS ORDERED: Sterile Water Irrig 1000ml IRRIG ONE (14:14)
[2020-06-10] MEDS ORDERED: NS 500ML ONE (14:14)
[2020-06-10] MEDS ORDERED: Tubing IV Secondary IV ONE (14:14)
[2020-06-10] MEDS ORDERED: 1/2 NS 1000ml IV ONE (14:19)
--- NOTE | 2020-06-10 15:03 | Cardiac Electrophysiology PN ---
Assessment/Plan Assessment/Plan 1. Hypertension. Now off Lisinopril and Lasix for acute renal failure 2. Troponin leak. No CP, ECG non ischemic and likely due to renal failure 3. Bilateral pleural effusions. S/P Right side thoracentesis x 2. FU by Dr. Olson. S/P Left thoracentesis again x2 last one 05/29/20. Now on BIPAP S/P VATS by Dr Joseph with bilateral chest tubes 06/09/20. Extubated today 4. Hyponatremia. 5. CML x 5 years, sees oncologist in [facility] area DCed desatanib (also is the likely cause of pleural effusions) Per Dr Dolan 6. Acute renal failure with sudden JUMP in creatinine to 2.7. FU Dr Carpio. Better after iv fluid, Albumin and off Lisinopril. Cr going up to 1.5 DW RN Subjective Subjective S/P 2 Right sided thoracentesis on 05/21/20 and 05/26/20 S/P 2 Left thoracentesis last one 05/29/20 S/P VATS by Dr Joseph 06/09/20. Extubated in ICU and off pressors. Has Bilateral chest tubes Objective Last 24 Hour Vital Signs Date Time Temp Pulse Resp B/P (MAP) Pulse Ox O2 Delivery O2 Flow Rate FiO2 06/10/20 14:00 85 18 109/62 (78) 96 06/10/20 13:30 Nasal Cannula 2.0 Nasal Cannula 2.0 06/10/20 13:00 89 20 111/70 (84) 98 06/10/20 12:00 Endotracheal Tube Endotracheal Tube 06/10/20 12:00 98.5 84 20 107/55 (72) 98 06/10/20 11:23 90 06/10/20 11:00 93 22 106/60 (75) 99 06/10/20 10:46 90 25 30 06/10/20 10:46 100 06/10/20 10:10 30 06/10/20 10:00 95 20 98/60 (73) 98 06/10/20 09:00 97 23 100/56 (71) 99 06/10/20 08:00 Endotracheal Tube Endotracheal Tube 06/10/20 08:00 30 06/10/20 08:00 98.4 98 24 119/58 (78) 98 06/10/20 07:45 96 15 30 10/14/20 07:44 98 06/10/20 07:00 95 19 96/52 (67) 100 06/10/20 06:00 92 15 97/58 (71) 96 06/10/20 05:00 95 17 91/48 (62) 99 06/10/20 04:00 92 06/10/20 04:00 98.4 92 21 96/60 (72) 100 06/10/20 04:00 Endotracheal Tube Endotracheal Tube 06/10/20 04:00 50 06/10/20 03:00 95 24 97/64 (75) 100 06/10/20 02:44 97 16 30 06/10/20 02:00 96 12 91/57 (68) 97 06/10/20 01:00 101 14 88/52 (64) 96 06/10/20 00:00 50 06/10/20 00:00 98.4 96 12 92/60 (71) 97 06/10/20 00:00 Endotracheal Tube Endotracheal Tube 06/10/20 00:00 96 06/09/20 23:17 92 10 30 06/09/20 23:00 95 23 97/65 (76) 99 06/09/20 22:00 94 12 105/53 (70) 99 06/09/20 21:12 95 15 103/57 (72) 98 06/09/20 21:00 95 12 80/50 (60) 96 06/09/20 20:00 50 06/09/20 20:00 88 06/09/20 20:00 98.1 98 16 91/59 (70) 97 06/09/20 20:00 Endotracheal Tube Endotracheal Tube 06/09/20 19:37 94 15 30 06/09/20 19:00 84 15 100/65 (77) 98 06/09/20 18:00 91 26 92/51 (65) 100 06/09/20 17:00 96 10 104/64 (77) 97 06/09/20 16:00 99 11 100/64 (76) 97 06/09/20 16:00 100 06/09/20 16:00 98.0 99 11 100/64 (76) 97 06/09/20 16:00 Endotracheal Tube Endotracheal Tube 06/09/20 16:00 50 06/09/20 15:00 96 11 96/64 (75) 98 Intake and Output 10/13/20 10/14/20 19:00 07:00 Intake Total 388.33 ml 1560 ml Output Total 2445 ml 960 ml Balance -2056.67 ml 600 ml Free Water 130 ml IV Total 368.33 ml 1100 ml Tube Feeding 20 ml 330 ml Output Urine Total 185 ml 260 ml Chest Tube Drainage Total 2260 ml 700 ml Laboratory Tests Test 06/10/20 03:15 06/10/20 04:29 06/10/20 05:45 White Blood Count 16.2 K/UL (4.8-10.8) H Red Blood Count 3.97 M/UL (4.20-5.40) L Hemoglobin 11.3 G/DL (12.0-16.0) L Hematocrit 33.6 % (37.0-47.0) L Mean Corpuscular Volume 85 FL (80-99) Mean Corpuscular Hemoglobin 28.5 PG (27.0-31.0) Mean Corpuscular Hemoglobin Concent 33.6 G/DL (32.0-36.0) Red Cell Distribution Width 14.3 % (11.6-14.8) Platelet Count 290 K/UL (150-450) Mean Platelet Volume 6.0 FL (6.5-10.1) L Neutrophils (%) (Auto) % (45.0-75.0) Lymphocytes (%) (Auto) % (20.0-45.0) Monocytes (%) (Auto) % (1.0-10.0) Eosinophils (%) (Auto) % (0.0-3.0) Basophils (%) (Auto) % (0.0-2.0) Differential Total Cells Counted 100 Neutrophils % (Manual) 97 % (45-75) H Lymphocytes % (Manual) 3 % (20-45) L Monocytes % (Manual) 0 % (1-10) L Eosinophils % (Manual) 0 % (0-3) Basophils % (Manual) 0 % (0-2) Band Neutrophils 0 % (0-8) Platelet Estimate Adequate Platelet Morphology Normal Red Blood Cell Morphology Normal C-Reactive Protein, Quantitative 17.9 mg/dL (0.00-0.90) H Pro-B-Type Natriuretic Peptide 74377 pg/mL (0-125) H Ionized Calcium (Measured) 0.93 mmol/L (1.10-1.35) L Sodium Level 136 MMOL/L (136-145) Potassium Level 4.5 MMOL/L (3.5-5.1) Chloride Level 102 MMOL/L (98-107) Carbon Dioxide Level 26 MMOL/L (21-32) Anion Gap 9 mmol/L (5-15) Blood Urea Nitrogen 78 mg/dL (7-18) H Creatinine 1.5 MG/DL (0.55-1.30) H Estimat Glomerular Filtration Rate 35.3 mL/min (>60) Glucose Level 335 MG/DL (74-106) #H Calcium Level 7.8 MG/DL (8.5-10.1) L Phosphorus Level 2.5 MG/DL (2.5-4.9) Magnesium Level 2.4 MG/DL (1.8-2.4) Total Bilirubin 0.4 MG/DL (0.2-1.0) Aspartate Amino Transf (AST/SGOT) 53 U/L (15-37) H Alanine Aminotransferase (ALT/SGPT) 19 U/L (12-78) Alkaline Phosphatase 87 U/L (46-116) Total Protein 4.8 G/DL (6.4-8.2) L Albumin 2.1 G/DL (3.4-5.0) L Globulin 2.7 g/dL Albumin/Globulin Ratio 0.8 (1.0-2.7) L Microbiology Date/Time Source Procedure Growth Status 06/09/20 14:50 Sputum Gram Stain - Final Resulted 06/09/20 14:50 Sputum Sputum Culture Pending Resulted 06/09/20 10:40 Body Fluid Gram Stain - Final Resulted 06/09/20 10:40 Body Fluid Body Fluid Culture - Preliminary NO GROWTH Resulted Objective HEAD AND NECK: No JVD. LUNGS: Decreased breath sounds.Bilateral chest tubes in place CARDIOVASCULAR: Regular S1 and S2 and tachycardic. ABDOMEN: Soft. EXTREMITIES: No pitting edema. Cristian England MD Jun 10, 2020 15:03
--- NOTE | 2020-06-10 20:37 | General Progress Note ---
Subjective ROS Limited/Unobtainable: Yes Allergies: Coded Allergies: No Known Allergies (Unverified , 05/19/20) Objective Last 24 Hour Vital Signs Date Time Temp Pulse Resp B/P (MAP) Pulse Ox O2 Delivery O2 Flow Rate FiO2 06/10/20 20:33 97 Nasal Cannula 5.0 40 06/10/20 20:00 2.0 06/10/20 19:17 97 Nasal Cannula 2.0 06/10/20 19:00 86 24 114/61 (78) 96 06/10/20 18:00 83 19 105/58 (74) 98 06/10/20 17:00 85 17 104/63 (77) 98 06/10/20 16:00 Nasal Cannula 2.0 Nasal Cannula 2.0 06/10/20 16:00 85 19 102/66 (78) 99 06/10/20 16:00 2.0 06/10/20 15:45 84 06/10/20 15:00 84 24 110/61 (77) 98 06/10/20 14:00 85 18 109/62 (78) 96 06/10/20 13:40 Nasal Cannula 2.0 06/10/20 13:30 Nasal Cannula 2.0 Nasal Cannula 2.0 06/10/20 13:30 Nasal Cannula 2.0 06/10/20 13:30 2.0 06/10/20 13:00 89 20 111/70 (84) 98 06/10/20 12:00 Endotracheal Tube Endotracheal Tube 06/10/20 12:00 98.5 84 20 107/55 (72) 98 06/10/20 11:23 90 06/10/20 11:00 93 22 106/60 (75) 99 06/10/20 10:50 30 06/10/20 10:46 90 25 30 06/10/20 10:46 100 06/10/20 10:10 30 06/10/20 10:00 95 20 98/60 (73) 98 06/10/20 09:00 97 23 100/56 (71) 99 06/10/20 08:00 Endotracheal Tube Endotracheal Tube 06/10/20 08:00 30 06/10/20 08:00 98.4 98 24 119/58 (78) 98 06/10/20 07:45 96 15 30 06/10/20 07:44 98 06/10/20 07:00 95 19 96/52 (67) 100 06/10/20 06:00 92 15 97/58 (71) 96 06/10/20 05:00 95 17 91/48 (62) 99 06/10/20 04:00 92 06/10/20 04:00 98.4 92 21 96/60 (72) 100 06/10/20 04:00 Endotracheal Tube Endotracheal Tube 06/10/20 04:00 50 06/10/20 03:00 95 24 97/64 (75) 100 06/10/20 02:44 97 16 30 06/10/20 02:00 96 12 91/57 (68) 97 06/10/20 01:00 101 14 88/52 (64) 96 06/10/20 00:00 50 06/10/20 00:00 98.4 96 12 92/60 (71) 97 06/10/20 00:00 Endotracheal Tube Endotracheal Tube 06/10/20 00:00 96 06/09/20 23:17 92 10 30 06/09/20 23:00 95 23 97/65 (76) 99 06/09/20 22:00 94 12 105/53 (70) 99 06/09/20 21:12 95 15 103/57 (72) 98 06/09/20 21:00 95 12 80/50 (60) 96 Intake and Output 06/09/20 06/10/20 19:00 07:00 Intake Total 388.33 ml 1560 ml Output Total 2445 ml 960 ml Balance -2056.67 ml 600 ml Free Water 130 ml IV Total 368.33 ml 1100 ml Tube Feeding 20 ml 330 ml Output Urine Total 185 ml 260 ml Chest Tube Drainage Total 2260 ml 700 ml Laboratory Tests 06/10/20 03:15: White Blood Count 16.2H, Red Blood Count 3.97L, Hemoglobin 11.3L, Hematocrit 33.6L, Mean Corpuscular Volume 85, Mean Corpuscular Hemoglobin 28.5, Mean Corpuscular Hemoglobin Concent 33.6, Red Cell Distribution Width 14.3, Platelet Count 290, Mean Platelet Volume 6.0L, Neutrophils (%) (Auto) , Lymphocytes (%) (Auto) , Monocytes (%) (Auto) , Eosinophils (%) (Auto) , Basophils (%) (Auto) , Differential Total Cells Counted 100, Neutrophils % (Manual) 97H, Lymphocytes % (Manual) 3L, Monocytes % (Manual) 0L, Eosinophils % (Manual) 0, Basophils % (Manual) 0, Band Neutrophils 0, Platelet Estimate Adequate, Platelet Morphology Normal, Red Blood Cell Morphology Normal, C-Reactive Protein, Quantitative 17.9H , Pro-B-Type Natriuretic Peptide [id number] 06/10/20 04:29: Ionized Calcium (Measured) 0.93L 06/10/20 05:45: Sodium Level 136, Potassium Level 4.5, Chloride Level 102, Carbon Dioxide Level 26, Anion Gap 9, Blood Urea Nitrogen 78H, Creatinine 1.5H, Estimat Glomerular Filtration Rate 35.3, Glucose Level 335#H, Calcium Level 7.8L, Phosphorus Level 2.5, Magnesium Level 2.4, Total Bilirubin 0.4, Aspartate Amino Transf (AST/SGOT) 53H, Alanine Aminotransferase (ALT/SGPT) 19, Alkaline Phosphatase 87, Total Protein 4.8L, Albumin 2.1L, Globulin 2.7, Albumin/Globulin Ratio 0.8L Height (Feet): 5 Height (Inches): 0.00 Weight (Pounds): 111 Assessment/Plan Problem List: (1) Leukemia ICD Codes: C95.90 - Leukemia, unspecified not having achieved remission SNOMED: 69072354 (2) Bilateral pleural effusion ICD Codes: J90 - Pleural effusion, not elsewhere classified SNOMED: 725381105 Status: progressing Assessment/Plan: resp failure icu care getting worse pleural effusion resp insuff on bipap s/p thoracocentesis for recurrent pleural effusion afebrile Tiara Jara MD Jun 10, 2020 20:37
--- NOTE | 2020-06-10 22:25 | General Progress Note ---
Subjective Allergies: Coded Allergies: No Known Allergies (Unverified , 05/19/20) Subjective Seen this am pre extubation tolerating TF Objective Last 24 Hour Vital Signs Date Time Temp Pulse Resp B/P (MAP) Pulse Ox O2 Delivery O2 Flow Rate FiO2 06/10/20 22:00 98 24 113/56 (75) 97 06/10/20 21:00 90 25 107/58 (74) 95 06/10/20 20:33 97 Nasal Cannula 5.0 40 06/10/20 20:00 90 06/10/20 20:00 96.0 86 25 112/57 (75) 96 06/10/20 20:00 2.0 06/10/20 20:00 Nasal Cannula 2.0 Nasal Cannula 2.0 06/10/20 19:17 97 Nasal Cannula 2.0 06/10/20 19:00 86 24 114/61 (78) 96 06/10/20 18:00 83 19 105/58 (74) 98 06/10/20 17:00 85 17 104/63 (77) 98 06/10/20 16:00 Nasal Cannula 2.0 Nasal Cannula 2.0 06/10/20 16:00 85 19 102/66 (78) 99 06/10/20 16:00 2.0 06/10/20 15:45 84 06/10/20 15:00 84 24 110/61 (77) 98 06/10/20 14:00 85 18 109/62 (78) 96 06/10/20 13:40 Nasal Cannula 2.0 06/10/20 13:30 Nasal Cannula 2.0 Nasal Cannula 2.0 06/10/20 13:30 Nasal Cannula 2.0 06/10/20 13:30 2.0 06/10/20 13:00 89 20 111/70 (84) 98 06/10/20 12:00 Endotracheal Tube Endotracheal Tube 06/10/20 12:00 98.5 84 20 107/55 (72) 98 06/10/20 11:23 90 06/10/20 11:00 93 22 106/60 (75) 99 06/10/20 10:50 30 06/10/20 10:46 90 25 30 06/10/20 10:46 100 06/10/20 10:10 30 06/10/20 10:00 95 20 98/60 (73) 98 06/10/20 09:00 97 23 100/56 (71) 99 06/10/20 08:00 Endotracheal Tube Endotracheal Tube 06/10/20 08:00 30 06/10/20 08:00 98.4 98 24 119/58 (78) 98 06/10/20 07:45 96 15 30 06/10/20 07:44 98 06/10/20 07:00 95 19 96/52 (67) 100 06/10/20 06:00 92 15 97/58 (71) 96 06/10/20 05:00 95 17 91/48 (62) 99 06/10/20 04:00 92 06/10/20 04:00 98.4 92 21 96/60 (72) 100 06/10/20 04:00 Endotracheal Tube Endotracheal Tube 06/10/20 04:00 50 06/10/20 03:00 95 24 97/64 (75) 100 06/10/20 02:44 97 16 30 06/10/20 02:00 96 12 91/57 (68) 97 06/10/20 01:00 101 14 88/52 (64) 96 06/10/20 00:00 50 06/10/20 00:00 98.4 96 12 92/60 (71) 97 06/10/20 00:00 Endotracheal Tube Endotracheal Tube 06/10/20 00:00 96 06/09/20 23:17 92 10 30 06/09/20 23:00 95 23 97/65 (76) 99 Intake and Output 06/09/20 06/10/20 19:00 07:00 Intake Total 388.33 ml 1560 ml Output Total 2445 ml 960 ml Balance -2056.67 ml 600 ml Free Water 130 ml IV Total 368.33 ml 1100 ml Tube Feeding 20 ml 330 ml Output Urine Total 185 ml 260 ml Chest Tube Drainage Total 2260 ml 700 ml Laboratory Tests 06/10/20 03:15: White Blood Count 16.2H, Red Blood Count 3.97L, Hemoglobin 11.3L, Hematocrit 33.6L, Mean Corpuscular Volume 85, Mean Corpuscular Hemoglobin 28.5, Mean Corpuscular Hemoglobin Concent 33.6, Red Cell Distribution Width 14.3, Platelet Count 290, Mean Platelet Volume 6.0L, Neutrophils (%) (Auto) , Lymphocytes (%) (Auto) , Monocytes (%) (Auto) , Eosinophils (%) (Auto) , Basophils (%) (Auto) , Differential Total Cells Counted 100, Neutrophils % (Manual) 97H, Lymphocytes % (Manual) 3L, Monocytes % (Manual) 0L, Eosinophils % (Manual) 0, Basophils % (Manual) 0, Band Neutrophils 0, Platelet Estimate Adequate, Platelet Morphology Normal, Red Blood Cell Morphology Normal, C-Reactive Protein, Quantitative 17.9H , Pro-B-Type Natriuretic Peptide [id number] 06/10/20 04:29: Ionized Calcium (Measured) 0.93L 06/10/20 05:45: Sodium Level 136, Potassium Level 4.5, Chloride Level 102, Carbon Dioxide Level 26, Anion Gap 9, Blood Urea Nitrogen 78H, Creatinine 1.5H, Estimat Glomerular Filtration Rate 35.3, Glucose Level 335#H, Calcium Level 7.8L, Phosphorus Level 2.5, Magnesium Level 2.4, Total Bilirubin 0.4, Aspartate Amino Transf (AST/SGOT) 53H, Alanine Aminotransferase (ALT/SGPT) 19, Alkaline Phosphatase 87, Total Protein 4.8L, Albumin 2.1L, Globulin 2.7, Albumin/Globulin Ratio 0.8L Height (Feet): 5 Height (Inches): 0.00 Weight (Pounds): 111 Objective NCAT, (+) ETT at time of visit supple Coarse BS RR abd soft no edema Assessment/Plan Status: progressing Assessment/Plan: Assessment - Respiratory failure - pleural effusions, s/p thoracentesis - Renal failure - resolved - Elevated troponin - HTN - CML - malnutrition -TF dependent Recommendations - Pulmonary management - vent care - Continue ngt feeds - follow labs and exam Antonio Ratliff MD Jun 10, 2020 22:25
--- NOTE | 2020-06-10 23:11 | Psych Consult Progress Note ---
Psychiatry Progress Note Psychiatry Progress Note Subjective sleeping better less anxious Medications Current Medications Medications (Trade) Dose Ordered Sig/Jennie Route PRN Reason Start Time Stop Time Status Last Admin Dose Admin Acetaminophen (Tylenol) 500 mg Q6H PRN ORAL Mild Pain (Pain Scale 1-3) 05/19/20 16:45 06/18/20 16:44 Acetaminophen/ Hydrocodone Bitart ([place] 10/325) 1 tab Q4H PRN ORAL Pain Scale (6-10) 06/09/20 11:00 06/16/20 10:59 Acetaminophen/ Hydrocodone Bitart ([place] 5/325) 1 tab Q4H PRN ORAL Moderate Pain (Pain Scale 4-6) 06/09/20 11:00 06/16/20 10:59 Allopurinol (allopurinoL) 300 mg DAILY ORAL 06/06/20 11:00 07/06/20 10:59 06/10/20 08:37 Cefepime HCl 1 gm/ Dextrose 55 ml @ 110 mls/hr EVERY 12 HOURS IVPB 06/09/20 10:45 06/16/20 10:44 06/10/20 20:38 Clonidine HCl (Catapres Tab) 0.1 mg Q4H PRN ORAL SBP > 170 05/24/20 13:15 08/22/20 13:14 Dexamethasone Sodium Phosphate (Decadron 4mg/ml vial) 4 mg DAILY IVP 06/07/20 12:30 09/05/20 12:29 06/10/20 08:37 Dextrose (Dextrose 50%) 25 ml Q30M PRN IV Hypoglycemia 06/10/20 06:45 09/08/20 06:44 Dextrose (Dextrose 50%) 50 ml Q30M PRN IV Hypoglycemia 06/10/20 06:45 09/08/20 06:44 Docusate Sodium (Colace) 100 mg TWICE A DAY ORAL 05/22/20 18:00 06/21/20 17:59 06/10/20 18:18 Enoxaparin Sodium (Lovenox) 40 mg DAILY SUBQ 06/02/20 09:00 08/31/20 08:59 06/08/20 08:41 Insulin Aspart (NovoLOG) BEFORE MEALS AND HS SUBQ 06/05/20 06:30 09/03/20 06:29 06/10/20 11:47 Insulin Detemir (Levemir) 10 units DAILY SUBQ 06/10/20 09:00 09/08/20 08:59 06/10/20 09:04 Midodrine (Pro-Amatine) 10 mg THREE TIMES A DAY ORAL 06/08/20 13:00 09/06/20 12:59 06/10/20 18:17 Mirtazapine (Remeron) 7.5 mg BEDTIME ORAL 06/02/20 21:00 08/31/20 20:59 06/10/20 20:38 Morphine Sulfate (Morphine Sulfate) 2 mg Q4H PRN IVP Severe Pain (Pain Scale 7-10) 06/09/20 11:00 06/16/20 10:59 Pantoprazole (Protonix) 40 mg DAILY IVP 06/08/20 09:00 07/08/20 08:59 06/10/20 08:37 Sodium Chloride 500 ml @ 999 mls/hr Q31M PRN IV For hypotension 06/09/20 17:00 07/09/20 16:59 06/09/20 21:08 Sodium Chloride 1,000 ml @ 50 mls/hr Q20H IV 06/10/20 13:00 07/10/20 12:59 06/10/20 13:16 Neurological/Psychiatric: Denies: no symptoms, anxiety, depressed, emotional problems, headache, numbness, paresthesia, pre-existing deficit, seizure, tingling, tremors, weakness, other Allergies: Coded Allergies: No Known Allergies (Unverified , 05/19/20) Objective Data Height (Feet): 5 Height (Inches): 0.00 Weight (Pounds): 111 General Appearance: no apparent distress Additional Comments: alert and oriented times self, place, and situation. Mood is anxious. Affect is blunted, congruent with mood. Thought process is concrete. Thought content, there is no suicidal or homicidal ideation. Cognition is intact. Insight and judgment are fair. ASSESSMENT: [place] I Anxiety disorder. Insomnia. [place] II Deferred. [place] III As above. [place] IV Low. [place] V 50. PLAN: 1. Remeron 7.5 mg at bedtime. 2. Provide the patient with reality orientation and supportive therapy. Assessment/Plan [place] I: [place] I Anxiety disorder. Insomnia. [place] II Deferred. [place] III As above. [place] IV Low. [place] V 50. PLAN: 1. Remeron 7.5 mg at bedtime. 2. Provide the patient with reality orientation and supportive therapy. Status: progressing Status Narrative [place] I Anxiety disorder. Insomnia. [place] II Deferred. [place] III As above. [place] IV Low. [place] V 50. PLAN: 1. Remeron 7.5 mg at bedtime. 2. Provide the patient with reality orientation and supportive therapy. Assessment/Plan: [place] I Anxiety disorder. Insomnia. [place] II Deferred. [place] III As above. [place] IV Low. [place] V 50. PLAN: 1. Remeron 7.5 mg at bedtime. 2. Provide the patient with reality orientation and supportive therapy. Anahy Avendano MD Jun 10, 2020 23:11
[2020-06-11] VITALS (22 sets, daily range): BP systolic 100–132; BP diastolic 49–77
[2020-06-11 05:05] LABS: HEMATOCRIT 37.3 % (37.0-47.0); HEMOGLOBIN 12.7 G/DL (12.0-16.0); MEAN CORPUSCULAR VOLUME 84 FL (80-99); PLATELET COUNT 301 K/UL (150-450); RED BLOOD COUNT 4.44 M/UL (4.20-5.40); RED CELL DISTRIBUTION WIDTH 14.5 % (11.6-14.8); WHITE BLOOD COUNT 19.1 K/UL (4.8-10.8)
[2020-06-11 05:46] LABS: ALBUMIN 1.7 G/DL (3.4-5.0); ALBUMIN/GLOBULIN RATIO 0.5 (1.0-2.7); BILIRUBIN,TOTAL 0.3 MG/DL (0.2-1.0); CALCIUM 7.8 MG/DL (8.5-10.1); CREATININE 1.1 MG/DL (0.55-1.30); PHOSPHORUS 2.3 MG/DL (2.5-4.9); POTASSIUM 4.2 MMOL/L (3.5-5.1)
[2020-06-11] MEDS: NovoLOG Insulin Flexpen SUBQ SCH ×4 (05:56→20:43)
--- NOTE | 2020-06-11 06:19 | General Progress Note ---
Subjective ROS Limited/Unobtainable: Yes Allergies: Coded Allergies: No Known Allergies (Unverified , 05/19/20) Subjective events noted interval notes reviewed glucose values improved no longer on dextrose still on dexa remained intubated post VATS Item Value Date Time Bedside Blood Glucose 181 mg/dl H 06/11/20 0556 Bedside Blood Glucose 96 mg/dl 06/10/20 2100 Bedside Blood Glucose 103 mg/dl 06/10/20 1655 Bedside Blood Glucose 279 mg/dl H 06/10/20 1147 Bedside Blood Glucose 302 mg/dl H 06/10/20 0904 Bedside Blood Glucose 289 mg/dl H 06/10/20 0620 Objective Last 24 Hour Vital Signs Date Time Temp Pulse Resp B/P (MAP) Pulse Ox O2 Delivery O2 Flow Rate FiO2 06/11/20 06:00 94 25 113/66 (82) 97 06/11/20 05:00 92 25 115/63 (80) 96 06/11/20 04:00 Nasal Cannula 2.0 Nasal Cannula 2.0 06/11/20 04:00 95 06/11/20 04:00 4.0 06/11/20 04:00 101 26 109/57 (74) 98 06/11/20 03:00 96 21 100/53 (69) 99 06/11/20 02:00 96.5 101 24 107/51 (69) 97 06/11/20 01:00 96 20 115/50 (71) 99 06/11/20 00:00 Nasal Cannula 2.0 Nasal Cannula 2.0 06/11/20 00:00 97 20 118/49 (72) 99 06/10/20 23:00 95 20 103/47 (65) 98 06/10/20 22:00 98 24 113/56 (75) 97 06/10/20 21:00 90 25 107/58 (74) 95 06/10/20 20:33 97 Nasal Cannula 5.0 40 06/10/20 20:00 90 06/10/20 20:00 96.0 86 25 112/57 (75) 96 06/10/20 20:00 2.0 06/10/20 20:00 Nasal Cannula 2.0 Nasal Cannula 2.0 06/10/20 19:17 97 Nasal Cannula 2.0 06/10/20 19:00 86 24 114/61 (78) 96 06/10/20 18:00 83 19 105/58 (74) 98 06/10/20 17:00 85 17 104/63 (77) 98 06/10/20 16:00 Nasal Cannula 2.0 Nasal Cannula 2.0 06/10/20 16:00 85 19 102/66 (78) 99 06/10/20 16:00 2.0 06/10/20 15:45 84 06/10/20 15:00 84 24 110/61 (77) 98 06/10/20 14:00 85 18 109/62 (78) 96 06/10/20 13:40 Nasal Cannula 2.0 06/10/20 13:30 Nasal Cannula 2.0 Nasal Cannula 2.0 06/10/20 13:30 Nasal Cannula 2.0 06/10/20 13:30 2.0 06/10/20 13:00 89 20 111/70 (84) 98 06/10/20 12:00 Endotracheal Tube Endotracheal Tube 06/10/20 12:00 98.5 84 20 107/55 (72) 98 06/10/20 11:23 90 06/10/20 11:00 93 22 106/60 (75) 99 06/10/20 10:50 30 06/10/20 10:46 90 25 30 06/10/20 10:46 100 06/10/20 10:10 30 06/10/20 10:00 95 20 98/60 (73) 98 06/10/20 09:00 97 23 100/56 (71) 99 06/10/20 08:00 Endotracheal Tube Endotracheal Tube 06/10/20 08:00 30 06/10/20 08:00 98.4 98 24 119/58 (78) 98 06/10/20 07:45 96 15 30 06/10/20 07:44 98 06/10/20 07:00 95 19 96/52 (67) 100 Intake and Output 06/10/20 06/11/20 18:59 06:59 Intake Total 714.9996 ml 915 ml Output Total 648 ml 635 ml Balance 66.9996 ml 280 ml IV Total 604.9996 ml 455 ml Tube Feeding 60 ml 400 ml Other 50 ml 60 ml Output Urine Total 500 ml 635 ml Chest Tube Drainage Total 148 ml Laboratory Tests 06/11/20 04:15: White Blood Count 19.1H, Red Blood Count 4.44, Hemoglobin 12.7, Hematocrit 37.3, Mean Corpuscular Volume 84, Mean Corpuscular Hemoglobin 28.6, Mean Corpuscular H emoglobin Concent 34.0, Red Cell Distribution Width 14.5, Platelet Count 301, Mean Platelet Volume 6.3L, Neutrophils (%) (Auto) , Lymphocytes (%) (Auto) , Monocytes (%) (Auto) , Eosinophils (%) (Auto) , Basophils (%) (Auto) , Neutrophi ls % (Manual) [Pending], Lymphocytes % (Manual) [Pending], Platelet Estimate [Pending], Platelet Morphology [Pending], Sodium Level 141, Potassium Level 4.2, Chloride Level 107, Carbon Dioxide Level 28, Anion Gap 6, Blood Urea Nitrogen 66H, Creatinine 1.1, Estimat Glomerular Filtration Rate 50.5, Glucose Level 188#H, Uric Acid 8.8H, Calcium Level 7.8L, Phosphorus Level 2.3L, Magnesium Level 2.5H, Total Bilirubin 0.3, Gamma Glutamyl Transpeptidase 25, Aspartate Amino Transf (AST/SGOT) 27, Alanine Aminotransferase (ALT/SGPT) 15, Alkaline Phosphatase 110, C-Reactive Protein, Quantitative 12.5H, Pro-B-Type Natriuretic Peptide [id number], Total Protein 4.8L, Albumin 1.7L, Globulin 3.1, Albumin/Globulin Ratio 0.5L Height (Feet): 5 Height (Inches): 0.00 Weight (Pounds): 111 General Appearance: other - intubated EENT: other - ETT Cardiovascular: normal rate Respiratory/Chest: decreased breath sounds Abdomen: normal bowel sounds Pelvis: normal external exam Objective Current Medications Medications (Trade) Dose Ordered Sig/Jennie Route PRN Reason Start Time Stop Time Status Last Admin Dose Admin Acetaminophen (Tylenol) 500 mg Q6H PRN ORAL Mild Pain (Pain Scale 1-3) 05/19/20 16:45 06/18/20 16:44 Acetaminophen/ Hydrocodone Bitart ([place] 10/325) 1 tab Q4H PRN ORAL Pain Scale (6-10) 06/09/20 11:00 06/16/20 10:59 Acetaminophen/ Hydrocodone Bitart ([place] 5/325) 1 tab Q4H PRN ORAL Moderate Pain (Pain Scale 4-6) 06/09/20 11:00 06/16/20 10:59 Allopurinol (allopurinoL) 300 mg DAILY ORAL 06/06/20 11:00 07/06/20 10:59 06/10/20 08:37 Cefepime HCl 1 gm/ Dextrose 55 ml @ 110 mls/hr EVERY 12 HOURS IVPB 06/09/20 10:45 06/16/20 10:44 06/10/20 20:38 Clonidine HCl (Catapres Tab) 0.1 mg Q4H PRN ORAL SBP > 170 05/24/20 13:15 08/22/20 13:14 Dexamethasone Sodium Phosphate (Decadron 4mg/ml vial) 4 mg DAILY IVP 06/07/20 12:30 09/05/20 12:29 06/10/20 08:37 Dextrose (Dextrose 50%) 25 ml Q30M PRN IV Hypoglycemia 06/10/20 06:45 09/08/20 06:44 Dextrose (Dextrose 50%) 50 ml Q30M PRN IV Hypoglycemia 06/10/20 06:45 09/08/20 06:44 Docusate Sodium (Colace) 100 mg TWICE A DAY ORAL 05/22/20 18:00 06/21/20 17:59 06/10/20 18:18 Enoxaparin Sodium (Lovenox) 40 mg DAILY SUBQ 06/02/20 09:00 08/31/20 08:59 06/08/20 08:41 Insulin Aspart (NovoLOG) BEFORE MEALS AND HS SUBQ 06/05/20 06:30 09/03/20 06:29 06/11/20 05:56 Insulin Detemir (Levemir) 10 units DAILY SUBQ 06/10/20 09:00 09/08/20 08:59 06/10/20 09:04 Midodrine (Pro-Amatine) 10 mg THREE TIMES A DAY ORAL 06/08/20 13:00 09/06/20 12:59 06/10/20 18:17 Mirtazapine (Remeron) 7.5 mg BEDTIME ORAL 06/02/20 21:00 08/31/20 20:59 06/10/20 20:38 Morphine Sulfate (Morphine Sulfate) 2 mg Q4H PRN IVP Severe Pain (Pain Scale 7-10) 06/09/20 11:00 06/16/20 10:59 Pantoprazole (Protonix) 40 mg DAILY IVP 06/08/20 09:00 07/08/20 08:59 06/10/20 08:37 Sodium Chloride 500 ml @ 999 mls/hr Q31M PRN IV For hypotension 06/09/20 17:00 07/09/20 16:59 06/09/20 21:08 Sodium Chloride 1,000 ml @ 50 mls/hr Q20H IV 06/10/20 13:00 07/10/20 12:59 06/10/20 13:16 Assessment/Plan Problem List: (1) Hypoglycemia ICD Codes: E16.2 - Hypoglycemia, unspecified SNOMED: 202123952 (2) Steroid-induced hyperglycemia ICD Codes: R73.9 - Hyperglycemia, unspecified; T38.0X5A - Adverse effect of glucocorticoids and synthetic analogues, initial encounter SNOMED: 204062771 (3) ASHLEY (acute kidney injury) ICD Codes: N17.9 - Acute kidney failure, unspecified SNOMED: 5277035, 72204786 (4) Bilateral pleural effusion ICD Codes: J90 - Pleural effusion, not elsewhere classified SNOMED: 052218311 (5) Leukemia ICD Codes: C95.90 - Leukemia, unspecified not having achieved remission SNOMED: 03114707 (6) Anxiety ICD Codes: F41.9 - Anxiety disorder, unspecified SNOMED: 41156201 Status: progressing Assessment/Plan: DC Levemir continue Novolog sliding scale hypoglycemia protocol in order Geoff Gomez MD Jun 11, 2020 06:19
[2020-06-11] MEDS: Pantoprazole Inj IVP SCH (08:27)
[2020-06-11] MEDS: Cefepime HCl 1 GM in D5W 55 ML IVPB SCH ×2 (08:27→20:35)
[2020-06-11] MEDS: Docusate 100mg cap ORAL SCH ×2 (08:28→17:20)
[2020-06-11] MEDS: Midodrine 10mg tab ORAL SCH ×4 (08:28→17:35)
[2020-06-11] MEDS: Enoxaparin 40mg Inj SUBQ SCH (08:29)
--- NOTE | 2020-06-11 09:47 | Infectious Diseases Prog Note ---
Assessment/Plan Assessment/Plan IMPRESSION: Leukocytosis, steroid related systemic inflammatory response syndrome or sepsis, Recurrent pleural effusion, CML, Accelerated hypertension, Elevation of troponin. Hypoxemia Hyperglycemia Anxiety disorder Perioperative respiratory failure Azotemia RECOMMENDATION: Continue Cefepime If remain stable will stop antibiotics soon Subjective ROS Limited/Unobtainable: Yes Constitutional: Reports: no symptoms, other - doing better Respiratory: Reports: other - extubated Allergies: Coded Allergies: No Known Allergies (Unverified , 05/19/20) Objective Last 24 Hour Vital Signs Date Time Temp Pulse Resp B/P (MAP) Pulse Ox O2 Delivery O2 Flow Rate FiO2 06/11/20 09:00 97 25 130/69 (89) 98 06/11/20 08:00 Nasal Cannula 2.0 Nasal Cannula 2.0 06/11/20 08:00 97.9 96 24 121/69 (86) 99 06/11/20 08:00 95 06/11/20 08:00 4.0 06/11/20 07:00 93 19 101/62 (75) 98 06/11/20 06:00 94 25 113/66 (82) 97 06/11/20 05:00 92 25 115/63 (80) 96 06/11/20 04:00 Nasal Cannula 2.0 Nasal Cannula 2.0 06/11/20 04:00 95 06/11/20 04:00 4.0 06/11/20 04:00 101 26 109/57 (74) 98 06/11/20 03:00 96 21 100/53 (69) 99 06/11/20 02:00 96.5 101 24 107/51 (69) 97 06/11/20 01:00 96 20 115/50 (71) 99 06/11/20 00:00 Nasal Cannula 2.0 Nasal Cannula 2.0 06/11/20 00:00 97 20 118/49 (72) 99 06/10/20 23:00 95 20 103/47 (65) 98 06/10/20 22:00 98 24 113/56 (75) 97 06/10/20 21:00 90 25 107/58 (74) 95 06/10/20 20:33 97 Nasal Cannula 5.0 40 06/10/20 20:00 90 06/10/20 20:00 96.0 86 25 112/57 (75) 96 10/14/20 20:00 2.0 06/10/20 20:00 Nasal Cannula 2.0 Nasal Cannula 2.0 06/10/20 19:17 97 Nasal Cannula 2.0 06/10/20 19:00 86 24 114/61 (78) 96 06/10/20 18:00 83 19 105/58 (74) 98 06/10/20 17:00 85 17 104/63 (77) 98 06/10/20 16:00 Nasal Cannula 2.0 Nasal Cannula 2.0 06/10/20 16:00 85 19 102/66 (78) 99 06/10/20 16:00 2.0 06/10/20 15:45 84 06/10/20 15:00 84 24 110/61 (77) 98 06/10/20 14:00 85 18 109/62 (78) 96 06/10/20 13:40 Nasal Cannula 2.0 06/10/20 13:30 Nasal Cannula 2.0 Nasal Cannula 2.0 06/10/20 13:30 Nasal Cannula 2.0 06/10/20 13:30 2.0 06/10/20 13:00 89 20 111/70 (84) 98 06/10/20 12:00 Endotracheal Tube Endotracheal Tube 06/10/20 12:00 98.5 84 20 107/55 (72) 98 06/10/20 11:23 90 06/10/20 11:00 93 22 106/60 (75) 99 06/10/20 10:50 30 06/10/20 10:46 90 25 30 06/10/20 10:46 100 06/10/20 10:10 30 06/10/20 10:00 95 20 98/60 (73) 98 Height (Feet): 5 Height (Inches): 0.00 Weight (Pounds): 111 HEENT: mucous membranes moist Respiratory/Chest: lungs clear, other - Oxygen by nasal cannula,bilateral chest tubes Cardiovascular: normal rate Abdomen: soft, non tender Extremities: no edema Neurologic/Psychiatric: alert, responsive Microbiology Date/Time Source Procedure Growth Status 06/09/20 14:50 Sputum Gram Stain - Final Complete 06/09/20 14:50 Sputum Sputum Culture - Final NORMAL UPPER RESPIRATORY EDGAR PRESENT Complete 06/09/20 10:40 Body Fluid Gram Stain - Final Resulted 06/09/20 10:40 Body Fluid Body Fluid Culture - Preliminary NO GROWTH Resulted Laboratory Tests Test 06/11/20 04:15 White Blood Count 19.1 K/UL (4.8-10.8) H Red Blood Count 4.44 M/UL (4.20-5.40) Hemoglobin 12.7 G/DL (12.0-16.0) Hematocrit 37.3 % (37.0-47.0) Mean Corpuscular Volume 84 FL (80-99) Mean Corpuscular Hemoglobin 28.6 PG (27.0-31.0) Mean Corpuscular Hemoglobin Concent 34.0 G/DL (32.0-36.0) Red Cell Distribution Width 14.5 % (11.6-14.8) Platelet Count 301 K/UL (150-450) Mean Platelet Volume 6.3 FL (6.5-10.1) L Neutrophils (%) (Auto) % (45.0-75.0) Lymphocytes (%) (Auto) % (20.0-45.0) Monocytes (%) (Auto) % (1.0-10.0) Eosinophils (%) (Auto) % (0.0-3.0) Basophils (%) (Auto) % (0.0-2.0) Differential Total Cells Counted 100 Neutrophils % (Manual) 94 % (45-75) H Lymphocytes % (Manual) 4 % (20-45) L Monocytes % (Manual) 2 % (1-10) Eosinophils % (Manual) 0 % (0-3) Basophils % (Manual) 0 % (0-2) Band Neutrophils 0 % (0-8) Platelet Estimate Adequate Platelet Morphology Normal Anisocytosis 1+ Sodium Level 141 MMOL/L (136-145) Potassium Level 4.2 MMOL/L (3.5-5.1) Chloride Level 107 MMOL/L (98-107) Carbon Dioxide Level 28 MMOL/L (21-32) Anion Gap 6 mmol/L (5-15) Blood Urea Nitrogen 66 mg/dL (7-18) H Creatinine 1.1 MG/DL (0.55-1.30) Estimat Glomerular Filtration Rate 50.5 mL/min (>60) Glucose Level 188 MG/DL (74-106) #H Uric Acid 8.8 MG/DL (2.6-7.2) H Calcium Level 7.8 MG/DL (8.5-10.1) L Phosphorus Level 2.3 MG/DL (2.5-4.9) L Magnesium Level 2.5 MG/DL (1.8-2.4) H Total Bilirubin 0.3 MG/DL (0.2-1.0) Gamma Glutamyl Transpeptidase 25 U/L (5-85) Aspartate Amino Transf (AST/SGOT) 27 U/L (15-37) Alanine Aminotransferase (ALT/SGPT) 15 U/L (12-78) Alkaline Phosphatase 110 U/L (46-116) C-Reactive Protein, Quantitative 12.5 mg/dL (0.00-0.90) H Pro-B-Type Natriuretic Peptide 80643 pg/mL (0-125) H Total Protein 4.8 G/DL (6.4-8.2) L Albumin 1.7 G/DL (3.4-5.0) L Globulin 3.1 g/dL Albumin/Globulin Ratio 0.5 (1.0-2.7) L Current Medications Medications (Trade) Dose Ordered Sig/Jennie Route PRN Reason Start Time Stop Time Status Last Admin Dose Admin Acetaminophen (Tylenol) 500 mg Q6H PRN ORAL Mild Pain (Pain Scale 1-3) 05/19/20 16:45 06/18/20 16:44 Acetaminophen/ Hydrocodone Bitart ([place] 10/325) 1 tab Q4H PRN ORAL Pain Scale (6-10) 06/09/20 11:00 06/16/20 10:59 Acetaminophen/ Hydrocodone Bitart ([place] 5/325) 1 tab Q4H PRN ORAL Moderate Pain (Pain Scale 4-6) 06/09/20 11:00 06/16/20 10:59 Allopurinol (allopurinoL) 300 mg DAILY ORAL 06/06/20 11:00 07/06/20 10:59 06/11/20 08:28 Cefepime HCl 1 gm/ Dextrose 55 ml @ 110 mls/hr EVERY 12 HOURS IVPB 06/09/20 10:45 06/16/20 10:44 06/11/20 08:27 Clonidine HCl (Catapres Tab) 0.1 mg Q4H PRN ORAL SBP > 170 05/24/20 13:15 08/22/20 13:14 Dexamethasone Sodium Phosphate (Decadron 4mg/ml vial) 4 mg DAILY IVP 06/07/20 12:30 09/05/20 12:29 06/11/20 08:28 Dextrose (Dextrose 50%) 25 ml Q30M PRN IV Hypoglycemia 06/10/20 06:45 09/08/20 06:44 Dextrose (Dextrose 50%) 50 ml Q30M PRN IV Hypoglycemia 06/10/20 06:45 09/08/20 06:44 Docusate Sodium (Colace) 100 mg TWICE A DAY ORAL 05/22/20 18:00 06/21/20 17:59 06/11/20 08:28 Enoxaparin Sodium (Lovenox) 40 mg DAILY SUBQ 06/02/20 09:00 08/31/20 08:59 06/11/20 08:29 Insulin Aspart (NovoLOG) BEFORE MEALS AND HS SUBQ 06/05/20 06:30 09/03/20 06:29 06/11/20 05:56 Midodrine (Pro-Amatine) 10 mg THREE TIMES A DAY ORAL 06/08/20 13:00 09/06/20 12:59 06/11/20 08:28 Mirtazapine (Remeron) 7.5 mg BEDTIME ORAL 06/02/20 21:00 08/31/20 20:59 06/10/20 20:38 Morphine Sulfate (Morphine Sulfate) 2 mg Q4H PRN IVP Severe Pain (Pain Scale 7-10) 06/09/20 11:00 06/16/20 10:59 Pantoprazole (Protonix) 40 mg DAILY IVP 06/08/20 09:00 07/08/20 08:59 06/11/20 08:27 Sodium Chloride 500 ml @ 999 mls/hr Q31M PRN IV For hypotension 06/09/20 17:00 07/09/20 16:59 06/09/20 21:08 Sodium Chloride 1,000 ml @ 50 mls/hr Q20H IV 06/10/20 13:00 07/10/20 12:59 06/11/20 08:28 Timothy Pennington MD Jun 11, 2020 09:47
--- NOTE | 2020-06-11 10:00 | Cardiac Electrophysiology PN ---
Assessment/Plan Assessment/Plan 1. Hypertension. Stable off BP meds 2. Troponin leak. No CP, ECG non ischemic and likely due to renal failure 3. Bilateral pleural effusions. S/P Right side thoracentesis x 2. FU by Dr. Olson. S/P Left thoracentesis again x2 last one 05/29/20. S/P VATS by Dr Joseph with bilateral chest tubes 06/09/20. Extubated and on nasal cannula 4. Hyponatremia. 5. CML x 5 years, sees oncologist in [place] DCed desatanib (also is the likely cause of pleural effusions) Per Dr Dolan 6. Acute renal failure with sudden JUMP in creatinine to 2.7. FU Dr Carpio. Better after iv fluid, Albumin and off Lisinopril. Cr down today to 1.1 DW RN Subjective Subjective S/P 2 Right sided thoracentesis on 05/21/20 and 05/26/20 S/P 2 Left thoracentesis last one 05/29/20 S/P VATS by Dr. Joseph 06/09/20. Extubated in ICU and off pressors. Has Bilateral chest tubes On Nasal cannula. Swallow eval pending Objective Last 24 Hour Vital Signs Date Time Temp Pulse Resp B/P (MAP) Pulse Ox O2 Delivery O2 Flow Rate FiO2 06/11/20 09:40 Nasal Cannula 4.0 Nasal Cannula 4.0 06/11/20 09:00 97 25 130/69 (89) 98 06/11/20 08:00 Nasal Cannula 4.0 Nasal Cannula 4.0 06/11/20 08:00 97.9 96 24 121/69 (86) 99 06/11/20 08:00 95 06/11/20 08:00 4.0 06/11/20 07:00 93 19 101/62 (75) 98 06/11/20 06:00 94 25 113/66 (82) 97 06/11/20 05:00 92 25 115/63 (80) 96 06/11/20 04:00 Nasal Cannula 2.0 Nasal Cannula 2.0 06/11/20 04:00 95 06/11/20 04:00 4.0 06/11/20 04:00 101 26 109/57 (74) 98 06/11/20 03:00 96 21 100/53 (69) 99 06/11/20 02:00 96.5 101 24 107/51 (69) 97 06/11/20 01:00 96 20 115/50 (71) 99 06/11/20 00:00 Nasal Cannula 2.0 Nasal Cannula 2.0 06/11/20 00:00 97 20 118/49 (72) 99 06/10/20 23:00 95 20 103/47 (65) 98 06/10/20 22:00 98 24 113/56 (75) 97 06/10/20 21:00 90 25 107/58 (74) 95 06/10/20 20:33 97 Nasal Cannula 5.0 40 06/10/20 20:00 90 06/10/20 20:00 96.0 86 25 112/57 (75) 96 06/10/20 20:00 2.0 06/10/20 20:00 Nasal Cannula 2.0 Nasal Cannula 2.0 06/10/20 19:17 97 Nasal Cannula 2.0 06/10/20 19:00 86 24 114/61 (78) 96 06/10/20 18:00 83 19 105/58 (74) 98 06/10/20 17:00 85 17 104/63 (77) 98 06/10/20 16:00 Nasal Cannula 2.0 Nasal Cannula 2.0 06/10/20 16:00 85 19 102/66 (78) 99 06/10/20 16:00 2.0 06/10/20 15:45 84 06/10/20 15:00 84 24 110/61 (77) 98 06/10/20 14:00 85 18 109/62 (78) 96 06/10/20 13:40 Nasal Cannula 2.0 06/10/20 13:30 Nasal Cannula 2.0 Nasal Cannula 2.0 06/10/20 13:30 Nasal Cannula 2.0 06/10/20 13:30 2.0 06/10/20 13:00 89 20 111/70 (84) 98 06/10/20 12:00 Endotracheal Tube Endotracheal Tube 06/10/20 12:00 98.5 84 20 107/55 (72) 98 06/10/20 11:23 90 06/10/20 11:00 93 22 106/60 (75) 99 06/10/20 10:50 30 06/10/20 10:46 90 25 30 06/10/20 10:46 100 06/10/20 10:10 30 06/10/20 10:00 95 20 98/60 (73) 98 Intake and Output 06/10/20 06/11/20 19:00 07:00 Intake Total 694.9996 ml 1135 ml Output Total 628 ml 845 ml Balance 66.9996 ml 290 ml IV Total 604.9996 ml 655 ml Tube Feeding 40 ml 420 ml Other 50 ml 60 ml Output Urine Total 480 ml 670 ml Chest Tube Drainage Total 148 ml 175 ml Laboratory Tests Test 06/11/20 04:15 White Blood Count 19.1 K/UL (4.8-10.8) H Red Blood Count 4.44 M/UL (4.20-5.40) Hemoglobin 12.7 G/DL (12.0-16.0) Hematocrit 37.3 % (37.0-47.0) Mean Corpuscular Volume 84 FL (80-99) Mean Corpuscular Hemoglobin 28.6 PG (27.0-31.0) Mean Corpuscular Hemoglobin Concent 34.0 G/DL (32.0-36.0) Red Cell Distribution Width 14.5 % (11.6-14.8) Platelet Count 301 K/UL (150-450) Mean Platelet Volume 6.3 FL (6.5-10.1) L Neutrophils (%) (Auto) % (45.0-75.0) Lymphocytes (%) (Auto) % (20.0-45.0) Monocytes (%) (Auto) % (1.0-10.0) Eosinophils (%) (Auto) % (0.0-3.0) Basophils (%) (Auto) % (0.0-2.0) Differential Total Cells Counted 100 Neutrophils % (Manual) 94 % (45-75) H Lymphocytes % (Manual) 4 % (20-45) L Monocytes % (Manual) 2 % (1-10) Eosinophils % (Manual) 0 % (0-3) Basophils % (Manual) 0 % (0-2) Band Neutrophils 0 % (0-8) Platelet Estimate Adequate Platelet Morphology Normal Anisocytosis 1+ Sodium Level 141 MMOL/L (136-145) Potassium Level 4.2 MMOL/L (3.5-5.1) Chloride Level 107 MMOL/L (98-107) Carbon Dioxide Level 28 MMOL/L (21-32) Anion Gap 6 mmol/L (5-15) Blood Urea Nitrogen 66 mg/dL (7-18) H Creatinine 1.1 MG/DL (0.55-1.30) Estimat Glomerular Filtration Rate 50.5 mL/min (>60) Glucose Level 188 MG/DL (74-106) #H Uric Acid 8.8 MG/DL (2.6-7.2) H Calcium Level 7.8 MG/DL (8.5-10.1) L Phosphorus Level 2.3 MG/DL (2.5-4.9) L Magnesium Level 2.5 MG/DL (1.8-2.4) H Total Bilirubin 0.3 MG/DL (0.2-1.0) Gamma Glutamyl Transpeptidase 25 U/L (5-85) Aspartate Amino Transf (AST/SGOT) 27 U/L (15-37) Alanine Aminotransferase (ALT/SGPT) 15 U/L (12-78) Alkaline Phosphatase 110 U/L (46-116) C-Reactive Protein, Quantitative 12.5 mg/dL (0.00-0.90) H Pro-B-Type Natriuretic Peptide 63206 pg/mL (0-125) H Total Protein 4.8 G/DL (6.4-8.2) L Albumin 1.7 G/DL (3.4-5.0) L Globulin 3.1 g/dL Albumin/Globulin Ratio 0.5 (1.0-2.7) L Microbiology Date/Time Source Procedure Growth Status 06/09/20 14:50 Sputum Gram Stain - Final Complete 06/09/20 14:50 Sputum Sputum Culture - Final NORMAL UPPER RESPIRATORY EDGAR PRESENT Complete 06/09/20 10:40 Body Fluid Gram Stain - Final Resulted 06/09/20 10:40 Body Fluid Body Fluid Culture - Preliminary NO GROWTH Resulted Objective HEAD AND NECK: No JVD. LUNGS: Decreased breath sounds.Bilateral chest tubes in place CARDIOVASCULAR: Regular S1 and S2 and tachycardic. ABDOMEN: Soft. EXTREMITIES: No pitting edema. Cristian England MD Jun 11, 2020 10:00
[2020-06-11] MEDS ORDERED: Varibar Pudding 230ml MC PRN (10:15)
[2020-06-11] MEDS ORDERED: Varibar Nectar 240ml MC PRN (10:15)
[2020-06-11] MEDS ORDERED: Varibar Thin Liquid powder 148gm MC PRN (10:15)
[2020-06-11] MEDS ORDERED: Varibar Honey 250ml MC PRN (10:15)
--- NOTE | 2020-06-11 11:04 | Nephrology Progress Note ---
Assessment/Plan Problem List: (1) ASHLEY (acute kidney injury) (2) Bilateral pleural effusion (3) Leukemia Assessment Imp: Acute renal failure, with sudden jump in serum creatinine to 2.7 History of leukemia Hypertension, now hypotensive Hyponatremia on admission, improved Bilateral pleural effusion. Status post paracentesis. Elevated troponin, most likely leak. Plan June 11: Seen in ICU. Discussed with RN. Patient was extubated. On nasal cannula. Bilateral chest tubes still in. Labs reviewed. Renal parameters improved. Electrolytes within normal limit. Continue per current management. June 10: Patient remains in ICU. Has chest tubes on the left and on the right. Remains intubated on ventilator. Due for weaning today. Labs reviewed. BUN and creatinine marli. Will change the IV to normal saline 50 cc an hour. Will discontinue Zaroxolyn. We will continue to monitor renal parameters and electrolytes. Continue per consultants. June 09: Patient now in ICU postop. Has bilateral chest tube. Intubated on ventilator. Today's labs reviewed. Continue per consultants. Continue to monitor renal parameters. June 08: Status quo. Continues on BiPAP. Due for VATS tomorrow. Start midodrine for low blood pressure. June 06: Status unchanged. Labs reviewed. Renal parameters stable. Continue per consultants. Remains full code. Remains on BiPAP. June 05: Electrolytes now normalized. Discussed with RN. Patient due for VATS surgery early next week. Continue current pulmonary support and monitor renal parameters. June 04: Potassium low. Creatinine higher. Will discontinue IV Lasix as the patient already on metolazone. Potassium supplement ordered. 250 mL of 3% saline ordered. Continue to monitor electrolytes and renal parameters. Continue per consultants. June 03: Discussed with Dr. Olson. Patient's pleural effusions continue to be a challenge. Patient on diuretics. Will watch renal parameters and kenzie ctrolytes. Patient was already tapped twice. Continue per current management. June 02: No chemistry panel done today. Status unchanged. Remains on nonrebreathing mask. Will check lab tomorrow. Continue per pulmonary. June 01: Labs reviewed. Status unchanged. Remains on nonrebreathing mask. Will increase his Lasix to 40 twice daily. Stable electrolytes and renal parame ters at this time. May 31: No chemistry panel done today. Patient still on nonrebreathing mask. Patient full code. Will check lab tomorrow. Patient's main issue is respiratory. May 30: Labs reviewed. Renal parameters stable. Continue per pulmonary. May 29: No chemistry panel done today. Remains on nonrebreather mask. Will order labs tomorrow. Continue per consultants. May 28: Serum creatinine up to 1.5. Remains on nonrebreather mask. Since admission had 3 thoracenteses for pleural effusion over the left and right. Respiratory status remains unstable. Continue per pulmonary. Will watch renal parameters. May 27: When seen the patient was on 100% nonrebreather mask. Renal panel within normal limit. Continue per consultants. Main problem remains respiratory. May 26: Renal parameters stable. Started on Lasix 40 mg daily. Continue to monitor renal parameters and electrolytes. Continue per consultants. May 25: Renal parameters within normal limit. Another dose of IV Lasix given. Continue to monitor electrolytes. Continue per consultants. May 24: Renal parameters normalized. Will give the Lasix 40 mg IV once. 1 dose of Kayexalate for hyperkalemia. Continue to monitor renal parameters. Previously: Today renal parameters are improved. Serum creatinine down to 1.6 from 2.7 Continue to hold lisinopril Continue to hold Lasix Half Normal saline 100 cc an hour one liter only was given yesterday Albumin bolus given yesterday, repeat as needed Monitor renal parameters Avoid nephrotoxic's Subjective ROS Limited/Unobtainable: No Constitutional: Reports: malaise, weakness Objective Objective Last 24 Hour Vital Signs Date Time Temp Pulse Resp B/P (MAP) Pulse Ox O2 Delivery O2 Flow Rate FiO2 06/11/20 11:00 88 23 125/68 (87) 95 06/11/20 10:00 91 24 122/70 (87) 96 06/11/20 09:40 Nasal Cannula 4.0 Nasal Cannula 4.0 06/11/20 09:00 97 25 130/69 (89) 98 06/11/20 08:00 Nasal Cannula 4.0 Nasal Cannula 4.0 06/11/20 08:00 97.9 96 24 121/69 (86) 99 06/11/20 08:00 95 06/11/20 08:00 4.0 06/11/20 07:00 93 19 101/62 (75) 98 06/11/20 06:00 94 25 113/66 (82) 97 06/11/20 05:00 92 25 115/63 (80) 96 06/11/20 04:00 Nasal Cannula 2.0 Nasal Cannula 2.0 06/11/20 04:00 95 06/11/20 04:00 4.0 06/11/20 04:00 101 26 109/57 (74) 98 06/11/20 03:00 96 21 100/53 (69) 99 06/11/20 02:00 96.5 101 24 107/51 (69) 97 06/11/20 01:00 96 20 115/50 (71) 99 06/11/20 00:00 Nasal Cannula 2.0 Nasal Cannula 2.0 06/11/20 00:00 97 20 118/49 (72) 99 06/10/20 23:00 95 20 103/47 (65) 98 06/10/20 22:00 98 24 113/56 (75) 97 06/10/20 21:00 90 25 107/58 (74) 95 06/10/20 20:33 97 Nasal Cannula 5.0 40 06/10/20 20:00 90 06/10/20 20:00 96.0 86 25 112/57 (75) 96 06/10/20 20:00 2.0 06/10/20 20:00 Nasal Cannula 2.0 Nasal Cannula 2.0 06/10/20 19:17 97 Nasal Cannula 2.0 06/10/20 19:00 86 24 114/61 (78) 96 06/10/20 18:00 83 19 105/58 (74) 98 06/10/20 17:00 85 17 104/63 (77) 98 06/10/20 16:00 Nasal Cannula 2.0 Nasal Cannula 2.0 06/10/20 16:00 85 19 102/66 (78) 99 06/10/20 16:00 2.0 06/10/20 15:45 84 06/10/20 15:00 84 24 110/61 (77) 98 06/10/20 14:00 85 18 109/62 (78) 96 06/10/20 13:40 Nasal Cannula 2.0 06/10/20 13:30 Nasal Cannula 2.0 Nasal Cannula 2.0 06/10/20 13:30 Nasal Cannula 2.0 06/10/20 13:30 2.0 06/10/20 13:00 89 20 111/70 (84) 98 06/10/20 12:00 Endotracheal Tube Endotracheal Tube 06/10/20 12:00 98.5 84 20 107/55 (72) 98 06/10/20 11:23 90 Intake and Output 06/10/20 06/11/20 19:00 07:00 Intake Total 694.9996 ml 1135 ml Output Total 628 ml 845 ml Balance 66.9996 ml 290 ml IV Total 604.9996 ml 655 ml Tube Feeding 40 ml 420 ml Other 50 ml 60 ml Output Urine Total 480 ml 670 ml Chest Tube Drainage Total 148 ml 175 ml Laboratory Tests 06/11/20 04:15: White Blood Count 19.1H, Red Blood Count 4.44, Hemoglobin 12.7, Hematocrit 37.3, Mean Corpuscular Volume 84, Mean Corpuscular Hemoglobin 28.6, Mean Corpuscular Hemoglobin Concent 34.0, Red Cell Distribution Width 14.5, Platelet Count 301, Mean Platelet Volume 6.3L, Neutrophils (%) (Auto) , Lymphocytes (%) (Auto) , Monocytes (%) (Auto) , Eosinophils (%) (Auto) , Basophils (%) (Auto) , Differential Total Cells Counted 100, Neutrophils % (Manual) 94H, Lymphocytes % (Manual) 4L, Monocytes % (Manual) 2, Eosinophils % (Manual) 0, Basophils % (Manual) 0, Band Neutrophils 0, Platelet Estimate Adequate, Platelet Morphology Normal, Anisocytosis 1+, Sodium Level 141, Potassium Level 4.2, Chloride Level 107, Carbon Dioxide Level 28, Anion Gap 6, Blood Urea Nitrogen 66H, Creatinine 1.1, Estimat Glomerular Filtration Rate 50.5, Glucose Level 188#H, Uric Acid 8.8H, Calcium Level 7.8L, Phosphorus Level 2.3L, Magnesium Level 2.5H, Total Bilirubin 0.3, Gamma Glutamyl Transpeptidase 25, Aspartate Amino Transf (AST/SGOT) 27, Alanine Aminotransferase (ALT/SGPT) 15, Alkaline Phosphatase 110, C-Reactive Protein, Quantitative 12.5H, Pro-B-Type Natriuretic Peptide 20431P, Total Protein 4.8L, Albumin 1.7L, Globulin 3.1, Albumin/Globulin Ratio 0.5L Height (Feet): 5 Height (Inches): 0.00 Weight (Pounds): 111 General Appearance: no apparent distress EENT: other - Extubated on nasal cannula Cardiovascular: tachycardia Respiratory/Chest: decreased breath sounds, other - Bilateral chest tube Objective No change Montrell Carpio MD Jun 11, 2020 11:04
--- NOTE | 2020-06-11 11:40 | Pulmonology Progress Note ---
Subjective ROS Limited/Unobtainable: No Interval Events: S/p VATS, Pleurex and lung biopsy Constitutional: Reports: no symptoms, other - doing better HEENT: Repors: no symptoms Respiratory: Reports: dry cough Gastrointestinal/Abdominal: Reports: no symptoms Genitourinary: Reports: no symptoms Neurologic: Reports: no symptoms Musculoskeletal: Denies: pain Allergies: Coded Allergies: No Known Allergies (Unverified , 05/19/20) All Systems: reviewed and negative except above Objective Last 24 Hour Vital Signs Date Time Temp Pulse Resp B/P (MAP) Pulse Ox O2 Delivery O2 Flow Rate FiO2 06/11/20 11:00 88 23 125/68 (87) 95 06/11/20 10:00 91 24 122/70 (87) 96 06/11/20 09:40 Nasal Cannula 4.0 Nasal Cannula 4.0 06/11/20 09:00 97 25 130/69 (89) 98 06/11/20 08:00 Nasal Cannula 4.0 Nasal Cannula 4.0 06/11/20 08:00 97.9 96 24 121/69 (86) 99 06/11/20 08:00 95 06/11/20 08:00 4.0 06/11/20 07:00 93 19 101/62 (75) 98 06/11/20 06:00 94 25 113/66 (82) 97 06/11/20 05:00 92 25 115/63 (80) 96 06/11/20 04:00 Nasal Cannula 2.0 Nasal Cannula 2.0 06/11/20 04:00 95 06/11/20 04:00 4.0 06/11/20 04:00 101 26 109/57 (74) 98 06/11/20 03:00 96 21 100/53 (69) 99 06/11/20 02:00 96.5 101 24 107/51 (69) 97 06/11/20 01:00 96 20 115/50 (71) 99 06/11/20 00:00 Nasal Cannula 2.0 Nasal Cannula 2.0 06/11/20 00:00 97 20 118/49 (72) 99 06/10/20 23:00 95 20 103/47 (65) 98 06/10/20 22:00 98 24 113/56 (75) 97 06/10/20 21:00 90 25 107/58 (74) 95 06/10/20 20:33 97 Nasal Cannula 5.0 40 06/10/20 20:00 90 06/10/20 20:00 96.0 86 25 112/57 (75) 96 06/10/20 20:00 2.0 06/10/20 20:00 Nasal Cannula 2.0 Nasal Cannula 2.0 06/10/20 19:17 97 Nasal Cannula 2.0 06/10/20 19:00 86 24 114/61 (78) 96 06/10/20 18:00 83 19 105/58 (74) 98 06/10/20 17:00 85 17 104/63 (77) 98 06/10/20 16:00 Nasal Cannula 2.0 Nasal Cannula 2.0 06/10/20 16:00 85 19 102/66 (78) 99 06/10/20 16:00 2.0 06/10/20 15:45 84 06/10/20 15:00 84 24 110/61 (77) 98 06/10/20 14:00 85 18 109/62 (78) 96 06/10/20 13:40 Nasal Cannula 2.0 06/10/20 13:30 Nasal Cannula 2.0 Nasal Cannula 2.0 06/10/20 13:30 Nasal Cannula 2.0 06/10/20 13:30 2.0 06/10/20 13:00 89 20 111/70 (84) 98 06/10/20 12:00 Endotracheal Tube Endotracheal Tube 06/10/20 12:00 98.5 84 20 107/55 (72) 98 Intake and Output 06/10/20 06/11/20 19:00 07:00 Intake Total 694.9996 ml 1135 ml Output Total 628 ml 845 ml Balance 66.9996 ml 290 ml IV Total 604.9996 ml 655 ml Tube Feeding 40 ml 420 ml Other 50 ml 60 ml Output Urine Total 480 ml 670 ml Chest Tube Drainage Total 148 ml 175 ml General Appearance: no acute distress Respiratory: chest wall non-tender, normal breath sounds, no respiratory distress, no accessory muscle use, decreased breath sounds Cardiovascular: normal peripheral pulses, normal rate Abdomen: normal bowel sounds Extremities: no cyanosis, no clubbing, no edema Microbiology Date/Time Source Procedure Growth Status 06/09/20 14:50 Sputum Gram Stain - Final Complete 06/09/20 14:50 Sputum Sputum Culture - Final NORMAL UPPER RESPIRATORY EDGAR PRESENT Complete 06/09/20 10:40 Body Fluid Gram Stain - Final Resulted 06/09/20 10:40 Body Fluid Body Fluid Culture - Preliminary NO GROWTH AFTER 24 HOURS Resulted Laboratory Tests 06/11/20 04:15: White Blood Count 19.1H, Red Blood Count 4.44, Hemoglobin 12.7, Hematocrit 37.3, Mean Corpuscular Volume 84, Mean Corpuscular Hemoglobin 28.6, Mean Corpuscular Hemoglobin Concent 34.0, Red Cell Distribution Width 14.5, Platelet Count 301, Mean Platelet Volume 6.3L, Neutrophils (%) (Auto) , Lymphocytes (%) (Auto) , Monocytes (%) (Auto) , Eosinophils (%) (Auto) , Basophils (%) (Auto) , Differential Total Cells Counted 100, Neutrophils % (Manual) 94H, Lymphocytes % (Manual) 4L, Monocytes % (Manual) 2, Eosinophils % (Manual) 0, Basophils % (Manual) 0, Band Neutrophils 0, Platelet Estimate Adequate, Platelet Morphology Normal, Anisocytosis 1+, Sodium Level 141, Potassium Level 4.2, Chloride Level 107, Carbon Dioxide Level 28, Anion Gap 6, Blood Urea Nitrogen 66H, Creatinine 1.1, Estimat Glomerular Filtration Rate 50.5, Glucose Level 188#H, Uric Acid 8.8H, Calcium Level 7.8L, Phosphorus Level 2.3L, Magnesium Level 2.5H, Total Bilirubin 0.3, Gamma Glutamyl Transpeptidase 25, Aspartate Amino Transf (AST/SGOT) 27, Alanine Aminotransferase (ALT/SGPT) 15, Alkaline Phosphatase 110, C-Reactive Protein, Quantitative 12.5H, Pro-B-Type Natriuretic Peptide 64709E, Total Protein 4.8L, Albumin 1.7L, Globulin 3.1, Albumin/Globulin Ratio 0.5L Current Medications Medications (Trade) Dose Ordered Sig/Jennie Route PRN Reason Start Time Stop Time Status Last Admin Dose Admin Acetaminophen (Tylenol) 500 mg Q6H PRN ORAL Mild Pain (Pain Scale 1-3) 05/19/20 16:45 06/18/20 16:44 Acetaminophen/ Hydrocodone Bitart ([place] 10/325) 1 tab Q4H PRN ORAL Pain Scale (6-10) 06/09/20 11:00 06/16/20 10:59 Acetaminophen/ Hydrocodone Bitart ([place] 5/325) 1 tab Q4H PRN ORAL Moderate Pain (Pain Scale 4-6) 06/09/20 11:00 06/16/20 10:59 Allopurinol (allopurinoL) 300 mg DAILY ORAL 06/06/20 11:00 07/06/20 10:59 06/11/20 08:28 Barium Sulfate (Varibar Honey) 250 ml NOW PRN MC RAD 06/11/20 10:15 06/14/20 10:05 Barium Sulfate (Varibar [place]) 240 ml NOW PRN MC RAD 06/11/20 10:15 06/14/20 10:05 Barium Sulfate (Varibar Pudding) 230 ml NOW PRN RAD 06/11/20 10:15 06/14/20 10:05 Barium Sulfate (Varibar Thin Liquid powder) 148 gm NOW PRN RAD 06/11/20 10:15 06/14/20 10:05 Cefepime HCl 1 gm/ Dextrose 55 ml @ 110 mls/hr EVERY 12 HOURS IVPB 06/09/20 10:45 06/16/20 10:44 06/11/20 08:27 Clonidine HCl (Catapres Tab) 0.1 mg Q4H PRN ORAL SBP > 170 05/24/20 13:15 08/22/20 13:14 Dexamethasone Sodium Phosphate (Decadron 4mg/ml vial) 4 mg DAILY IVP 06/07/20 12:30 09/05/20 12:29 06/11/20 08:28 Dextrose (Dextrose 50%) 25 ml Q30M PRN IV Hypoglycemia 06/10/20 06:45 09/08/20 06:44 Dextrose (Dextrose 50%) 50 ml Q30M PRN IV Hypoglycemia 06/10/20 06:45 09/08/20 06:44 Docusate Sodium (Colace) 100 mg TWICE A DAY ORAL 05/22/20 18:00 06/21/20 17:59 06/11/20 08:28 Enoxaparin Sodium (Lovenox) 40 mg DAILY SUBQ 06/02/20 09:00 08/31/20 08:59 06/11/20 08:29 Insulin Aspart (NovoLOG) BEFORE MEALS AND HS SUBQ 06/05/20 06:30 09/03/20 06:29 06/11/20 05:56 Midodrine (Pro-Amatine) 10 mg THREE TIMES A DAY ORAL 06/08/20 13:00 09/06/20 12:59 06/11/20 08:28 Mirtazapine (Remeron) 7.5 mg BEDTIME ORAL 06/02/20 21:00 08/31/20 20:59 06/10/20 20:38 Morphine Sulfate (Morphine Sulfate) 2 mg Q4H PRN IVP Severe Pain (Pain Scale 7-10) 06/09/20 11:00 06/16/20 10:59 Pantoprazole (Protonix) 40 mg DAILY IVP 06/08/20 09:00 07/08/20 08:59 06/11/20 08:27 Sodium Chloride 500 ml @ 999 mls/hr Q31M PRN IV For hypotension 06/09/20 17:00 07/09/20 16:59 06/09/20 21:08 Sodium Chloride 1,000 ml @ 50 mls/hr Q20H IV 06/10/20 13:00 07/10/20 12:59 06/11/20 08:28 Assessment/Plan Assessment/Plan IMPRESSION: 1. History of CML, on dasatinib. 2. Possible pneumonia. 3. Large pleural effusion, s/p B thoracentesis. 4. Hypertension. 5. Elevated D-dimer DISCUSSION: S/p VATS, B Pleurex and lung biopsy Extubated yesterday Transfer to [facility] IV fluids DVT prophylaxis Michelet Hernandez Omar Syed MD Jun 11, 2020 11:40
--- NOTE | 2020-06-11 12:42 | Hematology/Onc Progress Note ---
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 Joseph has accessed--> for biospy pleural --> 06/[address] --> imaging q2-3 days # HTN --> hydralazine and lisinopril --> sbp goal <140 # Dehydration --> goal of euvolemia # Elevated ddimer --> duplex lower ext r/o dvt==>neg # Dvt ppx lovenox sq Appreciate consultation and zachariah RN Subjective HEENT: Denies: no symptoms, eye pain, blurred vision, tearing, double vision, ear pain, ear discharge, nose pain, nose congestion, throat pain, throat swelling, mouth pain, mouth swelling, other Cardiovascular: Denies: no symptoms, chest pain, edema, irregular heart rate, lightheadedness, palpitations, syncope, other Respiratory: Denies: no symptoms, cough, shortness of breath, SOB with excertion, SOB at rest, sputum, wheezing, other Genitourinary: Denies: no symptoms, burning, discharge, frequency, flank pain, hematuria, incontinence, pain, urgency, other Neurologic/Psychiatric: Denies: no symptoms, anxiety, depressed, emotional problems, headache, numbness, paresthesia, pre-existing deficit, seizure, tingling, tremors, weakness, other Endocrine: Denies: no symptoms, excessive sweating, flushing, intolerance to cold, intolerance to heat, increased hunger, increased thirst, increased urine, unexplained weight gain, unexplained weight loss, other Allergies: Coded Allergies: No Known Allergies (Unverified , 05/19/20) Subjective 05/21 labs are noted, no bleeding, with pleural effusions due to desatanbib, s/p thora 05/22 labs are noted, no bleeding, on bipap, i dw her today to stop her med at once 05/24 wbc is improved, continue on ctx for one more day per id, bipap 05/26 have ordered for repeat cxr this am to reeval pleural effusions, labs noted 05/27 with b/l pleural effusions, aware from pulm, thora prn 05/28 has been refusing scds, thus will start lovenox today, breathing better s/p thora 05/29 with nonrebreather, for thora today, no night sweats, meds noted 05/31 remains on bipap, meds reviewed, off desatanib, worse effusion r>l 06/01 on bipap this am, labs pending for am 06/02 unable to wean off facemask, requiring it, will dw sister today 06/03 labs reviewed, meds noted, continues to be bipap support 06/04 no aspiration, is comfortable, meds reviewed, no bleeding 06/05 dw pulm yes, may need ct surg eval, chest tube, started steriods 06/06: labs reviewed no acute events overnight. 06/07 comfortable, no bleeding, meds reviewed, is on bipap still 06/08 labs reviewed, imaging noted, is on bipap this am 06/09 wbc higher, for procedure today, by cts, may get pleural biopsy 06/10 ct placed yest, today in am was intubated, but now extubated on nc in afternoon, dw Rn 06/11 labs reviewed, no bleeding, remains in the icu, wbc 19 Objective Objective Current Medications Medications (Trade) Dose Ordered Sig/Jennie Route PRN Reason Start Time Stop Time Status Last Admin Dose Admin Acetaminophen (Tylenol) 500 mg Q6H PRN ORAL Mild Pain (Pain Scale 1-3) 05/19/20 16:45 06/18/20 16:44 Acetaminophen/ Hydrocodone Bitart ([place] 10/325) 1 tab Q4H PRN ORAL Pain Scale (6-10) 06/09/20 11:00 06/16/20 10:59 Acetaminophen/ Hydrocodone Bitart ([place] 5/325) 1 tab Q4H PRN ORAL Moderate Pain (Pain Scale 4-6) 06/09/20 11:00 06/16/20 10:59 Allopurinol (allopurinoL) 300 mg DAILY ORAL 06/06/20 11:00 07/06/20 10:59 06/11/20 08:28 Barium Sulfate (Varibar Honey) 250 ml NOW PRN RAD 06/11/20 10:15 06/14/20 10:05 Barium Sulfate (Varibar [place]) 240 ml NOW PRN RAD 06/11/20 10:15 06/14/20 10:05 Barium Sulfate (Varibar Pudding) 230 ml NOW PRN RAD 06/11/20 10:15 06/14/20 10:05 Barium Sulfate (Varibar Thin Liquid powder) 148 gm NOW PRN RAD 06/11/20 10:15 06/14/20 10:05 Cefepime HCl 1 gm/ Dextrose 55 ml @ 110 mls/hr EVERY 12 HOURS IVPB 06/09/20 10:45 06/16/20 10:44 06/11/20 08:27 Clonidine HCl (Catapres Tab) 0.1 mg Q4H PRN ORAL SBP > 170 05/24/20 13:15 08/22/20 13:14 Dexamethasone Sodium Phosphate (Decadron 4mg/ml vial) 4 mg DAILY IVP 06/07/20 12:30 09/05/20 12:29 06/11/20 08:28 Dextrose (Dextrose 50%) 25 ml Q30M PRN IV Hypoglycemia 06/10/20 06:45 09/08/20 06:44 Dextrose (Dextrose 50%) 50 ml Q30M PRN IV Hypoglycemia 06/10/20 06:45 09/08/20 06:44 Docusate Sodium (Colace) 100 mg TWICE A DAY ORAL 05/22/20 18:00 06/21/20 17:59 06/11/20 08:28 Enoxaparin Sodium (Lovenox) 40 mg DAILY SUBQ 06/02/20 09:00 08/31/20 08:59 06/11/20 08:29 Insulin Aspart (NovoLOG) BEFORE MEALS AND HS SUBQ 06/05/20 06:30 1/7/21 06:29 06/11/20 11:47 Midodrine (Pro-Amatine) 10 mg THREE TIMES A DAY ORAL 06/08/20 13:00 09/06/20 12:59 06/11/20 08:28 Mirtazapine (Remeron) 7.5 mg BEDTIME ORAL 06/02/20 21:00 08/31/20 20:59 06/10/20 20:38 Morphine Sulfate (Morphine Sulfate) 2 mg Q4H PRN IVP Severe Pain (Pain Scale 7-10) 06/09/20 11:00 06/16/20 10:59 Pantoprazole (Protonix) 40 mg DAILY IVP 06/08/20 09:00 07/08/20 08:59 06/11/20 08:27 Sodium Chloride 500 ml @ 999 mls/hr Q31M PRN IV For hypotension 06/09/20 17:00 07/09/20 16:59 06/09/20 21:08 Sodium Chloride 1,000 ml @ 50 mls/hr Q20H IV 06/10/20 13:00 07/10/20 12:59 06/11/20 08:28 Last 24 Hour Vital Signs Date Time Temp Pulse Resp B/P (MAP) Pulse Ox O2 Delivery O2 Flow Rate FiO2 06/11/20 12:00 87 06/11/20 12:00 4.0 06/11/20 12:00 85 23 123/69 (87) 99 06/11/20 12:00 Nasal Cannula 4.0 Nasal Cannula 4.0 06/11/20 11:00 88 23 125/68 (87) 95 06/11/20 10:00 91 24 122/70 (87) 96 06/11/20 09:40 Nasal Cannula 4.0 Nasal Cannula 4.0 06/11/20 09:00 97 25 130/69 (89) 98 06/11/20 08:00 Nasal Cannula 4.0 Nasal Cannula 4.0 06/11/20 08:00 97.9 96 24 121/69 (86) 99 06/11/20 08:00 95 06/11/20 08:00 4.0 06/11/20 07:45 100 Nasal Cannula 4.0 36 06/11/20 07:00 93 19 101/62 (75) 98 06/11/20 06:00 94 25 113/66 (82) 97 06/11/20 05:00 92 25 115/63 (80) 96 06/11/20 04:00 Nasal Cannula 2.0 Nasal Cannula 2.0 06/11/20 04:00 95 06/11/20 04:00 4.0 06/11/20 04:00 101 26 109/57 (74) 98 06/11/20 03:00 96 21 100/53 (69) 99 06/11/20 02:00 96.5 101 24 107/51 (69) 97 06/11/20 01:00 96 20 115/50 (71) 99 06/11/20 00:00 Nasal Cannula 2.0 Nasal Cannula 2.0 06/11/20 00:00 97 20 118/49 (72) 99 06/10/20 23:00 95 20 103/47 (65) 98 06/10/20 22:00 98 24 113/56 (75) 97 06/10/20 21:00 90 25 107/58 (74) 95 06/10/20 20:33 97 Nasal Cannula 5.0 40 06/10/20 20:00 90 06/10/20 20:00 96.0 86 25 112/57 (75) 96 06/10/20 20:00 2.0 06/10/20 20:00 Nasal Cannula 2.0 Nasal Cannula 2.0 06/10/20 19:17 97 Nasal Cannula 2.0 06/10/20 19:00 86 24 114/61 (78) 96 06/10/20 18:00 83 19 105/58 (74) 98 06/10/20 17:00 85 17 104/63 (77) 98 06/10/20 16:00 Nasal Cannula 2.0 Nasal Cannula 2.0 06/10/20 16:00 85 19 102/66 (78) 99 06/10/20 16:00 2.0 06/10/20 15:45 84 06/10/20 15:00 84 24 110/61 (77) 98 06/10/20 14:00 85 18 109/62 (78) 96 06/10/20 13:40 Nasal Cannula 2.0 06/10/20 13:30 Nasal Cannula 2.0 Nasal Cannula 2.0 06/10/20 13:30 Nasal Cannula 2.0 06/10/20 13:30 2.0 06/10/20 13:00 89 20 111/70 (84) 98 06/10/20 12:00 Endotracheal Tube Endotracheal Tube 06/10/20 12:00 98.5 84 20 107/55 (72) 98 06/10/20 11:23 90 06/10/20 11:00 93 22 106/60 (75) 99 06/10/20 10:50 30 06/10/20 10:46 90 25 30 06/10/20 10:46 100 06/10/20 10:10 30 06/10/20 10:00 95 20 98/60 (73) 98 06/10/20 09:00 97 23 100/56 (71) 99 06/10/20 08:00 Endotracheal Tube Endotracheal Tube 06/10/20 08:00 30 06/10/20 08:00 98.4 98 24 119/58 (78) 98 06/10/20 07:45 96 15 30 06/10/20 07:44 98 06/10/20 07:00 95 19 96/52 (67) 100 06/10/20 06:00 92 15 97/58 (71) 96 06/10/20 05:00 95 17 91/48 (62) 99 06/10/20 04:00 92 06/10/20 04:00 98.4 92 21 96/60 (72) 100 06/10/20 04:00 Endotracheal Tube Endotracheal Tube 06/10/20 04:00 50 06/10/20 03:00 95 24 97/64 (75) 100 06/10/20 02:44 97 16 30 06/10/20 02:00 96 12 91/57 (68) 97 06/10/20 01:00 101 14 88/52 (64) 96 06/10/20 00:00 50 06/10/20 00:00 98.4 96 12 92/60 (71) 97 06/10/20 00:00 Endotracheal Tube Endotracheal Tube 06/10/20 00:00 96 06/09/20 23:17 92 10 30 06/09/20 23:00 95 23 97/65 (76) 99 06/09/20 22:00 94 12 105/53 (70) 99 06/09/20 21:12 95 15 103/57 (72) 98 06/09/20 21:00 95 12 80/50 (60) 96 06/09/20 20:00 50 10/13/20 20:00 88 06/09/20 20:00 98.1 98 16 91/59 (70) 97 06/09/20 20:00 Endotracheal Tube Endotracheal Tube 06/09/20 19:37 94 15 30 06/09/20 19:00 84 15 100/65 (77) 98 06/09/20 18:00 91 26 92/51 (65) 100 06/09/20 17:00 96 10 104/64 (77) 97 06/09/20 16:00 99 11 100/64 (76) 97 06/09/20 16:00 100 06/09/20 16:00 98.0 99 11 100/64 (76) 97 06/09/20 16:00 Endotracheal Tube Endotracheal Tube 06/09/20 16:00 50 06/09/20 15:00 96 11 96/64 (75) 98 06/09/20 14:44 99 10 100 06/09/20 14:33 96 10 30 06/09/20 14:00 99 10 91/48 (62) 100 06/09/20 13:00 97.6 99 13 85/53 (64) 100 Intake and Output 06/10/20 06/11/20 19:00 07:00 Intake Total 694.9996 ml 1135 ml Output Total 628 ml 845 ml Balance 66.9996 ml 290 ml IV Total 604.9996 ml 655 ml Tube Feeding 40 ml 420 ml Other 50 ml 60 ml Output Urine Total 480 ml 670 ml Chest Tube Drainage Total 148 ml 175 ml Labs Test 06/08/20 17:20 06/08/20 20:35 06/09/20 04:35 06/09/20 05:32 POC Whole Blood Glucose 193 MG/DL (74-106) 151 MG/DL (74-106) White Blood Count 16.8 K/UL (4.8-10.8) Red Blood Count 4.58 M/UL (4.20-5.40) Hemoglobin 13.1 G/DL (12.0-16.0) Hematocrit 38.9 % (37.0-47.0) Mean Corpuscular Volume 85 FL (80-99) Mean Corpuscular Hemoglobin 28.5 PG (27.0-31.0) Mean Corpuscular Hemoglobin Concent 33.6 G/DL (32.0-36.0) Red Cell Distribution Width 14.3 % (11.6-14.8) Platelet Count 393 K/UL (150-450) Mean Platelet Volume 6.2 FL (6.5-10.1) Neutrophils (%) (Auto) % (45.0-75.0) Lymphocytes (%) (Auto) % (20.0-45.0) Monocytes (%) (Auto) % (1.0-10.0) Eosinophils (%) (Auto) % (0.0-3.0) Basophils (%) (Auto) % (0.0-2.0) Differential Total Cells Counted 100 Neutrophils % (Manual) 88 % (45-75) Lymphocytes % (Manual) 6 % (20-45) Monocytes % (Manual) 5 % (1-10) Eosinophils % (Manual) 0 % (0-3) Basophils % (Manual) 0 % (0-2) Metamyelocytes % 1 % (0-0) Band Neutrophils 0 % (0-8) Platelet Estimate Adequate Platelet Morphology Normal Red Blood Cell Morphology Normal Test 06/09/20 10:10 06/09/20 10:16 06/10/20 03:15 06/10/20 04:29 White Blood Count 16.6 K/UL (4.8-10.8) 16.2 K/UL (4.8-10.8) Red Blood Count 4.90 M/UL (4.20-5.40) 3.97 M/UL (4.20-5.40) Hemoglobin 13.9 G/DL (12.0-16.0) 11.3 G/DL (12.0-16.0) Hematocrit 41.7 % (37.0-47.0) 33.6 % (37.0-47.0) Mean Corpuscular Volume 85 FL (80-99) 85 FL (80-99) Mean Corpuscular Hemoglobin 28.3 PG (27.0-31.0) 28.5 PG (27.0-31.0) Mean Corpuscular Hemoglobin Concent 33.3 G/DL (32.0-36.0) 33.6 G/DL (32.0-36.0) Red Cell Distribution Width 14.3 % (11.6-14.8) 14.3 % (11.6-14.8) Platelet Count 393 K/UL (150-450) 290 K/UL (150-450) Mean Platelet Volume 5.9 FL (6.5-10.1) 6.0 FL (6.5-10.1) Neutrophils (%) (Auto) 91.0 % (45.0-75.0) % (45.0-75.0) Lymphocytes (%) (Auto) 3.0 % (20.0-45.0) % (20.0-45.0) Monocytes (%) (Auto) 4.0 % (1.0-10.0) % (1.0-10.0) Eosinophils (%) (Auto) 1.0 % (0.0-3.0) % (0.0-3.0) Basophils (%) (Auto) 1.0 % (0.0-2.0) % (0.0-2.0) Sodium Level 139 MMOL/L (136-145) Potassium Level 3.6 MMOL/L (3.5-5.1) Chloride Level 99 MMOL/L (98-107) Carbon Dioxide Level 27 MMOL/L (21-32) Anion Gap 13 mmol/L (5-15) Blood Urea Nitrogen 68 mg/dL (7-18) Creatinine 1.0 MG/DL (0.55-1.30) Estimat Glomerular Filtration Rate 56.4 mL/min (>60) Glucose Level 200 MG/DL (74-106) Calcium Level 8.6 MG/DL (8.5-10.1) Ionized Calcium (Measured) 1.09 mmol/L (1.10-1.35) 0.93 mmol/L (1.10-1.35) Phosphorus Level 4.0 MG/DL (2.5-4.9) Magnesium Level 2.5 MG/DL (1.8-2.4) Arterial Blood pH 7.393 (7.350-7.450) Arterial Blood Partial Pressure CO2 46.0 mmHg (35.0-45.0) Arterial Blood Partial Pressure O2 580.6 mmHg (75.0-100.0) Arterial Blood HCO3 27.4 mmol/L (22.0-26.0) Arterial Blood Oxygen Saturation 99.7 % (95-100) Arterial Blood Base Excess 2.0 (-2-2) Sammy Test Positive Differential Total Cells Counted 100 Neutrophils % (Manual) 97 % (45-75) Lymphocytes % (Manual) 3 % (20-45) Monocytes % (Manual) 0 % (1-10) Eosinophils % (Manual) 0 % (0-3) Basophils % (Manual) 0 % (0-2) Band Neutrophils 0 % (0-8) Platelet Estimate Adequate Platelet Morphology Normal Red Blood Cell Morphology Normal C-Reactive Protein, Quantitative 17.9 mg/dL (0.00-0.90) Pro-B-Type Natriuretic Peptide 79488 pg/mL (0-125) Test 06/10/20 05:45 06/11/20 04:15 Sodium Level 136 MMOL/L (136-145) 141 MMOL/L (136-145) Potassium Level 4.5 MMOL/L (3.5-5.1) 4.2 MMOL/L (3.5-5.1) Chloride Level 102 MMOL/L (98-107) 107 MMOL/L (98-107) Carbon Dioxide Level 26 MMOL/L (21-32) 28 MMOL/L (21-32) Anion Gap 9 mmol/L (5-15) 6 mmol/L (5-15) Blood Urea Nitrogen 78 mg/dL (7-18) 66 mg/dL (7-18) Creatinine 1.5 MG/DL (0.55-1.30) 1.1 MG/DL (0.55-1.30) Estimat Glomerular Filtration Rate 35.3 mL/min (>60) 50.5 mL/min (>60) Glucose Level 335 MG/DL (74-106) 188 MG/DL (74-106) Calcium Level 7.8 MG/DL (8.5-10.1) 7.8 MG/DL (8.5-10.1) Phosphorus Level 2.5 MG/DL (2.5-4.9) 2.3 MG/DL (2.5-4.9) Magnesium Level 2.4 MG/DL (1.8-2.4) 2.5 MG/DL (1.8-2.4) Total Bilirubin 0.4 MG/DL (0.2-1.0) 0.3 MG/DL (0.2-1.0) Aspartate Amino Transf (AST/SGOT) 53 U/L (15-37) 27 U/L (15-37) Alanine Aminotransferase (ALT/SGPT) 19 U/L (12-78) 15 U/L (12-78) Alkaline Phosphatase 87 U/L (46-116) 110 U/L (46-116) Total Protein 4.8 G/DL (6.4-8.2) 4.8 G/DL (6.4-8.2) Albumin 2.1 G/DL (3.4-5.0) 1.7 G/DL (3.4-5.0) Globulin 2.7 g/dL 3.1 g/dL Albumin/Globulin Ratio 0.8 (1.0-2.7) 0.5 (1.0-2.7) White Blood Count 19.1 K/UL (4.8-10.8) Red Blood Count 4.44 M/UL (4.20-5.40) Hemoglobin 12.7 G/DL (12.0-16.0) Hematocrit 37.3 % (37.0-47.0) Mean Corpuscular Volume 84 FL (80-99) Mean Corpuscular Hemoglobin 28.6 PG (27.0-31.0) Mean Corpuscular Hemoglobin Concent 34.0 G/DL (32.0-36.0) Red Cell Distribution Width 14.5 % (11.6-14.8) Platelet Count 301 K/UL (150-450) Mean Platelet Volume 6.3 FL (6.5-10.1) Neutrophils (%) (Auto) % (45.0-75.0) Lymphocytes (%) (Auto) % (20.0-45.0) Monocytes (%) (Auto) % (1.0-10.0) Eosinophils (%) (Auto) % (0.0-3.0) Basophils (%) (Auto) % (0.0-2.0) Differential Total Cells Counted 100 Neutrophils % (Manual) 94 % (45-75) Lymphocytes % (Manual) 4 % (20-45) Monocytes % (Manual) 2 % (1-10) Eosinophils % (Manual) 0 % (0-3) Basophils % (Manual) 0 % (0-2) Band Neutrophils 0 % (0-8) Platelet Estimate Adequate Platelet Morphology Normal Anisocytosis 1+ Uric Acid 8.8 MG/DL (2.6-7.2) Gamma Glutamyl Transpeptidase 25 U/L (5-85) C-Reactive Protein, Quantitative 12.5 mg/dL (0.00-0.90) Pro-B-Type Natriuretic Peptide 64751 pg/mL (0-125) Height (Feet): 5 Height (Inches): 0.00 Weight (Pounds): 111 Objective Physical Exam: Vitals: reviewed General: NAD HEENT: nc, at Neck: supple Chest: clear breath sounds bilaterally ++ left sided chest tube Cardiovascular: RRR, no s3, s4 Abdomen: soft, nontender, nd Extremities: no cce, normal range of motion Dionicio Higgins MD Jun 11, 2020 12:42
--- NOTE | 2020-06-11 14:52 | Diagnostic Imaging Report ---
Indication: Shortness of breath Technique: One view of the chest Comparison: 06/10/2020 Findings: Left apical and medial pneumothorax is again demonstrated, may be slightly larger. There is some pleural fluid on the left, unchanged from previously. Left chest tube remains in place. No right pneumothorax is demonstrated. There is evidence of some pleural fluid on the the right, which is a new finding. Subcutaneous emphysema on the left appears slightly decreased. Endotracheal tube has been removed. Nasogastric tube remains in place. Hazy left midlung and right basilar parenchymal opacities appear slightly increased Impression: Persistent and possibly slightly larger left pneumothorax Increased bilateral parenchymal infiltrates versus edema Stable left, new or increased right pleural effusions Decreased left chest wall subcutaneous emphysema Interim extubation
--- NOTE | 2020-06-11 15:03 | General Progress Note ---
Subjective ROS Limited/Unobtainable: Yes Allergies: Coded Allergies: No Known Allergies (Unverified , 05/19/20) Objective Last 24 Hour Vital Signs Date Time Temp Pulse Resp B/P (MAP) Pulse Ox O2 Delivery O2 Flow Rate FiO2 06/11/20 14:00 85 18 129/69 (89) 100 06/11/20 13:00 85 21 124/73 (90) 100 06/11/20 12:00 87 06/11/20 12:00 4.0 06/11/20 12:00 98.0 85 23 123/69 (87) 99 06/11/20 12:00 Nasal Cannula 4.0 Nasal Cannula 4.0 06/11/20 11:00 88 23 125/68 (87) 95 06/11/20 10:00 91 24 122/70 (87) 96 06/11/20 09:40 Nasal Cannula 4.0 Nasal Cannula 4.0 06/11/20 09:00 97 25 130/69 (89) 98 06/11/20 08:00 Nasal Cannula 4.0 Nasal Cannula 4.0 06/11/20 08:00 97.9 96 24 121/69 (86) 99 06/11/20 08:00 95 06/11/20 08:00 4.0 06/11/20 07:45 100 Nasal Cannula 4.0 36 06/11/20 07:00 93 19 101/62 (75) 98 06/11/20 06:00 94 25 113/66 (82) 97 06/11/20 05:00 92 25 115/63 (80) 96 06/11/20 04:00 Nasal Cannula 2.0 Nasal Cannula 2.0 06/11/20 04:00 95 06/11/20 04:00 4.0 06/11/20 04:00 101 26 109/57 (74) 98 06/11/20 03:00 96 21 100/53 (69) 99 06/11/20 02:00 96.5 101 24 107/51 (69) 97 06/11/20 01:00 96 20 115/50 (71) 99 06/11/20 00:00 Nasal Cannula 2.0 Nasal Cannula 2.0 06/11/20 00:00 97 20 118/49 (72) 99 06/10/20 23:00 95 20 103/47 (65) 98 06/10/20 22:00 98 24 113/56 (75) 97 06/10/20 21:00 90 25 107/58 (74) 95 06/10/20 20:33 97 Nasal Cannula 5.0 40 06/10/20 20:00 90 06/10/20 20:00 96.0 86 25 112/57 (75) 96 06/10/20 20:00 2.0 06/10/20 20:00 Nasal Cannula 2.0 Nasal Cannula 2.0 06/10/20 19:17 97 Nasal Cannula 2.0 06/10/20 19:00 86 24 114/61 (78) 96 06/10/20 18:00 83 19 105/58 (74) 98 06/10/20 17:00 85 17 104/63 (77) 98 06/10/20 16:00 Nasal Cannula 2.0 Nasal Cannula 2.0 06/10/20 16:00 85 19 102/66 (78) 99 06/10/20 16:00 2.0 06/10/20 15:45 84 Intake and Output 06/10/20 06/11/20 19:00 07:00 Intake Total 694.9996 ml 1135 ml Output Total 628 ml 845 ml Balance 66.9996 ml 290 ml IV Total 604.9996 ml 655 ml Tube Feeding 40 ml 420 ml Other 50 ml 60 ml Output Urine Total 480 ml 670 ml Chest Tube Drainage Total 148 ml 175 ml Laboratory Tests 06/11/20 04:15: White Blood Count 19.1H, Red Blood Count 4.44, Hemoglobin 12.7, Hematocrit 37.3, Mean Corpuscular Volume 84, Mean Corpuscular Hemoglobin 28.6, Mean Corpuscular Hemoglobin Concent 34.0, Red Cell Distribution Width 14.5, Platelet Count 301, Mean Platelet Volume 6.3L, Neutrophils (%) (Auto) , Lymphocytes (%) (Auto) , Monocytes (%) (Auto) , Eosinophils (%) (Auto) , Basophils (%) (Auto) , Differential Total Cells Counted 100, Neutrophils % (Manual) 94H, Lymphocytes % (Manual) 4L, Monocytes % (Manual) 2, Eosinophils % (Manual) 0, Basophils % (Manual) 0, Band Neutrophils 0, Platelet Estimate Adequate, Platelet Morphology Normal, Anisocytosis 1+, Sodium Level 141, Potassium Level 4.2, Chloride Level 107, Carbon Dioxide Level 28, Anion Gap 6, Blood Urea Nitrogen 66H, Creatinine 1.1, Estimat Glomerular Filtration Rate 50.5, Glucose Level 188#H, Uric Acid 8.8H, Calcium Level 7.8L, Phosphorus Level 2.3L, Magnesium Level 2.5H, Total Bilirubin 0.3, Gamma Glutamyl Transpeptidase 25, Aspartate Amino Transf (AST/SGOT) 27, Alanine Aminotransferase (ALT/SGPT) 15, Alkaline Phosphatase 110, C-Reactive Protein, Quantitative 12.5H, Pro-B-Type Natriuretic Peptide 06008F, Total Protein 4.8L, Albumin 1.7L, Globulin 3.1, Albumin/Globulin Ratio 0.5L Height (Feet): 5 Height (Inches): 0.00 Weight (Pounds): 111 Assessment/Plan Problem List: (1) Leukemia ICD Codes: C95.90 - Leukemia, unspecified not having achieved remission SNOMED: 59163084 (2) Bilateral pleural effusion ICD Codes: J90 - Pleural effusion, not elsewhere classified SNOMED: 017676212 Status: progressing Assessment/Plan: extubated chest tube in place sob is improving pleural effusion s/p thoracocentesis for recurrent pleural effusion afebrile Tiara Jara MD Jun 11, 2020 15:03
--- NOTE | 2020-06-11 22:31 | Psych Consult Progress Note ---
Psychiatry Progress Note Psychiatry Progress Note Subjective sleeping better less anxious Medications Current Medications Medications (Trade) Dose Ordered Sig/Jennie Route PRN Reason Start Time Stop Time Status Last Admin Dose Admin Acetaminophen (Tylenol) 500 mg Q6H PRN ORAL Mild Pain (Pain Scale 1-3) 05/19/20 16:45 06/18/20 16:44 Acetaminophen/ Hydrocodone Bitart ([place] 10/325) 1 tab Q4H PRN ORAL Pain Scale (6-10) 06/09/20 11:00 06/16/20 10:59 Acetaminophen/ Hydrocodone Bitart ([place] 5/325) 1 tab Q4H PRN ORAL Moderate Pain (Pain Scale 4-6) 06/09/20 11:00 06/16/20 10:59 Allopurinol (allopurinoL) 300 mg DAILY ORAL 06/06/20 11:00 07/06/20 10:59 06/11/20 08:28 Barium Sulfate (Varibar Honey) 250 ml NOW PRN MC RAD 06/11/20 10:15 06/14/20 10:05 Barium Sulfate (Varibar [place]) 240 ml NOW PRN MC RAD 06/11/20 10:15 06/14/20 10:05 Barium Sulfate (Varibar Pudding) 230 ml NOW PRN MC RAD 06/11/20 10:15 06/14/20 10:05 Barium Sulfate (Varibar Thin Liquid powder) 148 gm NOW PRN MC RAD 06/11/20 10:15 06/14/20 10:05 Cefepime HCl 1 gm/ Dextrose 55 ml @ 110 mls/hr EVERY 12 HOURS IVPB 06/09/20 10:45 06/16/20 10:44 06/11/20 20:35 Clonidine HCl (Catapres Tab) 0.1 mg Q4H PRN ORAL SBP > 170 05/24/20 13:15 08/22/20 13:14 Dexamethasone Sodium Phosphate (Decadron 4mg/ml vial) 4 mg DAILY IVP 06/07/20 12:30 09/05/20 12:29 06/11/20 08:28 Dextrose (Dextrose 50%) 25 ml Q30M PRN IV Hypoglycemia 06/10/20 06:45 09/08/20 06:44 Dextrose (Dextrose 50%) 50 ml Q30M PRN IV Hypoglycemia 06/10/20 06:45 09/08/20 06:44 Docusate Sodium (Colace) 100 mg TWICE A DAY ORAL 05/22/20 18:00 06/21/20 17:59 06/11/20 08:28 Enoxaparin Sodium (Lovenox) 40 mg DAILY SUBQ 06/02/20 09:00 08/31/20 08:59 06/11/20 08:29 Insulin Aspart (NovoLOG) BEFORE MEALS AND HS SUBQ 06/05/20 06:30 09/03/20 06:29 06/11/20 20:43 Midodrine (Pro-Amatine) 10 mg THREE TIMES A DAY ORAL 06/08/20 13:00 09/06/20 12:59 06/11/20 17:35 Mirtazapine (Remeron) 7.5 mg BEDTIME ORAL 06/02/20 21:00 08/31/20 20:59 06/11/20 20:35 Morphine Sulfate (Morphine Sulfate) 2 mg Q4H PRN IVP Severe Pain (Pain Scale 7-10) 06/09/20 11:00 06/16/20 10:59 Pantoprazole (Protonix) 40 mg DAILY IVP 06/08/20 09:00 07/08/20 08:59 06/11/20 08:27 Sodium Chloride 500 ml @ 999 mls/hr Q31M PRN IV For hypotension 06/09/20 17:00 07/09/20 16:59 06/09/20 21:08 Sodium Chloride 1,000 ml @ 50 mls/hr Q20H IV 06/10/20 13:00 07/10/20 12:59 06/11/20 08:28 Neurological/Psychiatric: Reports: anxiety, depressed, emotional problems; De nies: no symptoms, headache, numbness, paresthesia, pre-existing deficit, seizure, tingling, tremors, weakness, other Allergies: Coded Allergies: No Known Allergies (Unverified , 05/19/20) Objective Data Height (Feet): 5 Height (Inches): 0.00 Weight (Pounds): 111 General Appearance: WD/WN, no apparent distress, alert, alert oriented x3 Behavior Mannerisms: good eye contact Mental Status Exam - Affect: blunted Mental Status Exam - Mood: anxious Additional Comments: alert and oriented times self, place, and situation. Mood is anxious. Affect is blunted, congruent with mood. Thought process is concrete. Thought content, there is no suicidal or homicidal ideation. Cognition is intact. Insight and judgment are fair. ASSESSMENT: Jay I Anxiety disorder. Insomnia. Jay II Deferred. Jay III As above. Jay IV Low. Jay V 50. PLAN: 1. Remeron 7.5 mg at bedtime. 2. Provide the patient with reality orientation and supportive therapy. Assessment/Plan Jay I: Jay I Anxiety disorder. Insomnia. Jay II Deferred. Jay III As above. Jay IV Low. Jay V 50. PLAN: 1. Remeron 7.5 mg at bedtime. 2. Provide the patient with reality orientation and supportive therapy. Status: progressing Status Narrative Jay I Anxiety disorder. Insomnia. Jay II Deferred. Jay III As above. Jay IV Low. Jay V 50. PLAN: 1. Remeron 7.5 mg at bedtime. 2. Provide the patient with reality orientation and supportive therapy. Assessment/Plan: Jay I Anxiety disorder. Insomnia. Jay II Deferred. Jay III As above. Jay IV Low. Jay V 50. PLAN: 1. Remeron 7.5 mg at bedtime. 2. Provide the patient with reality orientation and supportive therapy. Anahy Avendano MD Jun 11, 2020 22:31
--- NOTE | 2020-06-11 22:35 | General Progress Note ---
Subjective Allergies: Coded Allergies: No Known Allergies (Unverified , 05/19/20) Subjective Seen this am tolerating TF able to talk OGT d/c'd Patient subsequently passed swallow eval Objective Last 24 Hour Vital Signs Date Time Temp Pulse Resp B/P (MAP) Pulse Ox O2 Delivery O2 Flow Rate FiO2 06/11/20 21:00 84 21 111/64 (80) 100 06/11/20 20:00 4.0 06/11/20 20:00 96 06/11/20 20:00 98.3 88 21 106/63 (77) 100 06/11/20 20:00 Nasal Cannula 4.0 Nasal Cannula 4.0 06/11/20 19:00 97 22 130/74 (92) 99 06/11/20 18:00 90 23 132/77 (95) 100 06/11/20 17:00 86 20 124/71 (88) 100 06/11/20 16:00 89 06/11/20 16:00 90 27 126/73 (90) 100 06/11/20 16:00 98.2 88 22 122/68 (86) 100 06/11/20 16:00 4.0 06/11/20 16:00 Nasal Cannula 4.0 Nasal Cannula 4.0 06/11/20 15:00 84 19 128/71 (90) 100 06/11/20 14:00 85 18 129/69 (89) 100 06/11/20 13:00 85 21 124/73 (90) 100 06/11/20 12:00 87 06/11/20 12:00 4.0 06/11/20 12:00 98.0 85 23 123/69 (87) 99 06/11/20 12:00 Nasal Cannula 4.0 Nasal Cannula 4.0 06/11/20 11:00 88 23 125/68 (87) 95 06/11/20 10:00 91 24 122/70 (87) 96 06/11/20 09:40 Nasal Cannula 4.0 Nasal Cannula 4.0 06/11/20 09:00 97 25 130/69 (89) 98 06/11/20 08:00 Nasal Cannula 4.0 Nasal Cannula 4.0 06/11/20 08:00 97.9 96 24 121/69 (86) 99 06/11/20 08:00 95 06/11/20 08:00 4.0 06/11/20 07:45 100 Nasal Cannula 4.0 36 06/11/20 07:00 93 19 101/62 (75) 98 06/11/20 06:00 94 25 113/66 (82) 97 06/11/20 05:00 92 25 115/63 (80) 96 06/11/20 04:00 Nasal Cannula 2.0 Nasal Cannula 2.0 06/11/20 04:00 95 06/11/20 04:00 4.0 06/11/20 04:00 101 26 109/57 (74) 98 06/11/20 03:00 96 21 100/53 (69) 99 06/11/20 02:00 96.5 101 24 107/51 (69) 97 06/11/20 01:00 96 20 115/50 (71) 99 06/11/20 00:00 Nasal Cannula 2.0 Nasal Cannula 2.0 06/11/20 00:00 97 20 118/49 (72) 99 06/10/20 23:00 95 20 103/47 (65) 98 Intake and Output 06/10/20 06/11/20 19:00 07:00 Intake Total 694.9996 ml 1135 ml Output Total 628 ml 845 ml Balance 66.9996 ml 290 ml IV Total 604.9996 ml 655 ml Tube Feeding 40 ml 420 ml Other 50 ml 60 ml Output Urine Total 480 ml 670 ml Chest Tube Drainage Total 148 ml 175 ml Laboratory Tests 06/11/20 04:15: White Blood Count 19.1H, Red Blood Count 4.44, Hemoglobin 12.7, Hematocrit 37.3, Mean Corpuscular Volume 84, Mean Corpuscular Hemoglobin 28.6, Mean Corpuscular Hemoglobin Concent 34.0, Red Cell Distribution Width 14.5, Platelet Count 301, Mean Platelet Volume 6.3L, Neutrophils (%) (Auto) , Lymphocytes (%) (Auto) , Monocytes (%) (Auto) , Eosinophils (%) (Auto) , Basophils (%) (Auto) , Differential Total Cells Counted 100, Neutrophils % (Manual) 94H, Lymphocytes % (Manual) 4L, Monocytes % (Manual) 2, Eosinophils % (Manual) 0, Basophils % (Manual) 0, Band Neutrophils 0, Platelet Estimate Adequate, Platelet Morphology Normal, Anisocytosis 1+, Sodium Level 141, Potassium Level 4.2, Chloride Level 107, Carbon Dioxide Level 28, Anion Gap 6, Blood Urea Nitrogen 66H, Creatinine 1.1, Estimat Glomerular Filtration Rate 50.5, Glucose Level 188#H, Uric Acid 8.8H, Calcium Level 7.8L, Phosphorus Level 2.3L, Magnesium Level 2.5H, Total Bilirubin 0.3, Gamma Glutamyl Transpeptidase 25, Aspartate Amino Transf (AST/SGOT) 27, Alanine Aminotransferase (ALT/SGPT) 15, Alkaline Phosphatase 110, C-Reactive Protein, Quantitative 12.5H, Pro-B-Type Natriuretic Peptide 19447I, Total Protein 4.8L, Albumin 1.7L, Globulin 3.1, Albumin/Globulin Ratio 0.5L Height (Feet): 5 Height (Inches): 0.00 Weight (Pounds): 111 Objective NCAT, (+) ETT at time of visit supple Coarse BS RR abd soft no edema Assessment/Plan Status: progressing Assessment/Plan: Assessment - Respiratory failure - pleural effusions, s/p thoracentesis - Renal failure - resolved - Elevated troponin - HTN - CML - malnutrition -TF dependent Recommendations - Pulmonary management - vent care - Continue ngt feeds - follow labs and exam Antonio Ratliff MD Jun 11, 2020 22:35
[2020-06-12] VITALS: BP 115/65
[2020-06-12 04:00] VITALS: BP 123/72
[2020-06-12] MEDS: NovoLOG Insulin Flexpen SUBQ SCH ×4 (06:30→21:25)
--- NOTE | 2020-06-12 07:37 | General Progress Note ---
Subjective Allergies: Coded Allergies: No Known Allergies (Unverified , 05/19/20) All Systems: reviewed and negative except above Subjective events noted interval notes reviewed glucose values improved transferred out of ICU Item Value Date Time Bedside Blood Glucose 128 mg/dl H 06/12/20 0630 Bedside Blood Glucose 254 mg/dl H 06/11/20 2100 Bedside Blood Glucose 214 mg/dl H 06/11/20 1717 Bedside Blood Glucose 210 mg/dl H 06/11/20 1147 Bedside Blood Glucose 181 mg/dl H 06/11/20 0630 Objective Last 24 Hour Vital Signs Date Time Temp Pulse Resp B/P (MAP) Pulse Ox O2 Delivery O2 Flow Rate FiO2 06/12/20 04:00 97.7 85 21 123/72 (89) 100 06/12/20 04:00 4.0 06/12/20 04:00 Nasal Cannula 4.0 Nasal Cannula 4.0 06/12/20 03:49 84 06/12/20 00:00 97.7 79 21 115/65 (82) 100 06/12/20 00:00 4.0 06/12/20 00:00 Nasal Cannula 4.0 Nasal Cannula 4.0 06/12/20 00:00 77 06/11/20 21:59 81 06/11/20 21:00 84 21 111/64 (80) 100 06/11/20 20:00 4.0 06/11/20 20:00 96 06/11/20 20:00 98.3 88 21 106/63 (77) 100 06/11/20 20:00 Nasal Cannula 4.0 Nasal Cannula 4.0 06/11/20 19:00 97 22 130/74 (92) 99 06/11/20 18:00 90 23 132/77 (95) 100 06/11/20 17:00 86 20 124/71 (88) 100 06/11/20 16:00 89 06/11/20 16:00 90 27 126/73 (90) 100 06/11/20 16:00 98.2 88 22 122/68 (86) 100 06/11/20 16:00 4.0 06/11/20 16:00 Nasal Cannula 4.0 Nasal Cannula 4.0 06/11/20 15:00 84 19 128/71 (90) 100 06/11/20 14:00 85 18 129/69 (89) 100 06/11/20 13:00 85 21 124/73 (90) 100 06/11/20 12:00 87 06/11/20 12:00 4.0 06/11/20 12:00 98.0 85 23 123/69 (87) 99 06/11/20 12:00 Nasal Cannula 4.0 Nasal Cannula 4.0 06/11/20 11:00 88 23 125/68 (87) 95 06/11/20 10:00 91 24 122/70 (87) 96 06/11/20 09:40 Nasal Cannula 4.0 Nasal Cannula 4.0 06/11/20 09:00 97 25 130/69 (89) 98 06/11/20 08:00 Nasal Cannula 4.0 Nasal Cannula 4.0 06/11/20 08:00 97.9 96 24 121/69 (86) 99 06/11/20 08:00 95 06/11/20 08:00 4.0 06/11/20 07:45 100 Nasal Cannula 4.0 36 Intake and Output 06/11/20 06/12/20 19:00 07:00 Intake Total 1185 ml 824 ml Output Total 948 ml 1020 ml Balance 237 ml -196 ml Intake Oral 450 ml 220 ml IV Total 655 ml 604 ml Tube Feeding 80 ml Output Urine Total 405 ml 450 ml Chest Tube Drainage Total 543 ml 570 ml # Bowel Movements 1 Laboratory Tests 06/11/20 17:07: POC Whole Blood Glucose [Pending] 06/12/20 05:26: POC Whole Blood Glucose 128H Height (Feet): 5 Height (Inches): 0.00 Weight (Pounds): 111 General Appearance: no apparent distress Neck: normal alignment Respiratory/Chest: decreased breath sounds Abdomen: normal bowel sounds Pelvis: normal external exam Objective Current Medications Medications (Trade) Dose Ordered Sig/Jennie Route PRN Reason Start Time Stop Time Status Last Admin Dose Admin Acetaminophen (Tylenol) 500 mg Q6H PRN ORAL Mild Pain (Pain Scale 1-3) 05/19/20 16:45 06/18/20 16:44 Acetaminophen/ Hydrocodone Bitart ([place] 10/325) 1 tab Q4H PRN ORAL Pain Scale (6-10) 06/09/20 11:00 06/16/20 10:59 Acetaminophen/ Hydrocodone Bitart ([place] 5/325) 1 tab Q4H PRN ORAL Moderate Pain (Pain Scale 4-6) 06/09/20 11:00 06/16/20 10:59 Allopurinol (allopurinoL) 300 mg DAILY ORAL 06/06/20 11:00 07/06/20 10:59 06/11/20 08:28 Barium Sulfate (Varibar Honey) 250 ml NOW PRN RAD 06/11/20 10:15 06/14/20 10:05 Barium Sulfate (Varibar [place]) 240 ml NOW PRN RAD 06/11/20 10:15 06/14/20 10:05 Barium Sulfate (Varibar Pud[place]) 230 ml NOW PRN RAD 06/11/20 10:15 06/14/20 10:05 Barium Sulfate (Varibar Thin Liquid powder) 148 gm NOW PRN RAD 06/11/20 10:15 06/14/20 10:05 Cefepime HCl 1 gm/ Dextrose 55 ml @ 110 mls/hr EVERY 12 HOURS IVPB 06/09/20 10:45 06/16/20 10:44 06/11/20 20:35 Clonidine HCl (Catapres Tab) 0.1 mg Q4H PRN ORAL SBP > 170 05/24/20 13:15 08/22/20 13:14 Dexamethasone Sodium Phosphate (Decadron 4mg/ml vial) 4 mg DAILY IVP 06/07/20 12:30 09/05/20 12:29 06/11/20 08:28 Dextrose (Dextrose 50%) 25 ml Q30M PRN IV Hypoglycemia 06/10/20 06:45 09/08/20 06:44 Dextrose (Dextrose 50%) 50 ml Q30M PRN IV Hypoglycemia 06/10/20 06:45 09/08/20 06:44 Docusate Sodium (Colace) 100 mg TWICE A DAY ORAL 05/22/20 18:00 06/21/20 17:59 06/11/20 08:28 Enoxaparin Sodium (Lovenox) 40 mg DAILY SUBQ 06/02/20 09:00 08/31/20 08:59 06/11/20 08:29 Insulin Aspart (NovoLOG) BEFORE MEALS AND HS SUBQ 06/05/20 06:30 09/03/20 06:29 06/11/20 20:43 Midodrine (Pro-Amatine) 10 mg THREE TIMES A DAY ORAL 06/08/20 13:00 09/06/20 12:59 06/11/20 17:35 Mirtazapine (Remeron) 7.5 mg BEDTIME ORAL 06/02/20 21:00 08/31/20 20:59 06/11/20 20:35 Morphine Sulfate (Morphine Sulfate) 2 mg Q4H PRN IVP Severe Pain (Pain Scale 7-10) 06/09/20 11:00 06/16/20 10:59 Pantoprazole (Protonix) 40 mg DAILY IVP 06/08/20 09:00 07/08/20 08:59 06/11/20 08:27 Sodium Chloride 500 ml @ 999 mls/hr Q31M PRN IV For hypotension 06/09/20 17:00 07/09/20 16:59 06/09/20 21:08 Sodium Chloride 1,000 ml @ 50 mls/hr Q20H IV 06/10/20 13:00 07/10/20 12:59 06/12/20 04:44 Assessment/Plan Problem List: (1) Hypoglycemia ICD Codes: E16.2 - Hypoglycemia, unspecified SNOMED: 359553315 (2) Steroid-induced hyperglycemia ICD Codes: R73.9 - Hyperglycemia, unspecified; T38.0X5A - Adverse effect of glucocorticoids and synthetic analogues, initial encounter SNOMED: 135743348 (3) ASHLEY (acute kidney injury) ICD Codes: N17.9 - Acute kidney failure, unspecified SNOMED: 2392149, 57865498 (4) Bilateral pleural effusion ICD Codes: J90 - Pleural effusion, not elsewhere classified SNOMED: 842677891 (5) Leukemia ICD Codes: C95.90 - Leukemia, unspecified not having achieved remission SNOMED: 16471776 (6) Anxiety ICD Codes: F41.9 - Anxiety disorder, unspecified SNOMED: 83867321 Status: progressing Assessment/Plan: no need for basal insulin for now continue Novolog sliding scale hypoglycemia protocol in order Geoff Gomez MD Jun 12, 2020 07:37
[2020-06-12 08:00] VITALS: BP 134/74
[2020-06-12] MEDS: Docusate 100mg cap ORAL SCH ×2 (09:30→17:25)
[2020-06-12] MEDS: Midodrine 10mg tab ORAL SCH ×2 (09:30→13:00)
[2020-06-12] MEDS: Pantoprazole Inj IVP SCH (09:32)
[2020-06-12] MEDS: Cefepime HCl 1 GM in D5W 55 ML IVPB SCH ×2 (09:32→21:19)
[2020-06-12] MEDS: Enoxaparin 40mg Inj SUBQ SCH (09:36)
--- NOTE | 2020-06-12 09:43 | Pulmonology Progress Note ---
Subjective ROS Limited/Unobtainable: Yes Interval Events: S/p VATS, Pleurex and lung biopsy Constitutional: Reports: no symptoms, other - doing better HEENT: Repors: no symptoms Respiratory: Reports: dry cough Gastrointestinal/Abdominal: Reports: no symptoms Genitourinary: Reports: no symptoms Neurologic: Reports: no symptoms Musculoskeletal: Denies: pain Allergies: Coded Allergies: No Known Allergies (Unverified , 05/19/20) All Systems: reviewed and negative except above Objective Last 24 Hour Vital Signs Date Time Temp Pulse Resp B/P (MAP) Pulse Ox O2 Delivery O2 Flow Rate FiO2 06/12/20 08:00 Nasal Cannula 4.0 Nasal Cannula 4.0 06/12/20 08:00 97.5 85 19 134/74 (94) 97 06/12/20 08:00 4.0 06/12/20 04:00 97.7 85 21 123/72 (89) 100 06/12/20 04:00 4.0 06/12/20 04:00 Nasal Cannula 4.0 Nasal Cannula 4.0 06/12/20 03:49 84 06/12/20 00:00 97.7 79 21 115/65 (82) 100 06/12/20 00:00 4.0 06/12/20 00:00 Nasal Cannula 4.0 Nasal Cannula 4.0 06/12/20 00:00 77 06/11/20 21:59 81 06/11/20 21:00 84 21 111/64 (80) 100 06/11/20 20:00 4.0 06/11/20 20:00 96 06/11/20 20:00 98.3 88 21 106/63 (77) 100 06/11/20 20:00 Nasal Cannula 4.0 Nasal Cannula 4.0 06/11/20 19:00 97 22 130/74 (92) 99 06/11/20 18:00 90 23 132/77 (95) 100 06/11/20 17:00 86 20 124/71 (88) 100 06/11/20 16:00 89 06/11/20 16:00 90 27 126/73 (90) 100 06/11/20 16:00 98.2 88 22 122/68 (86) 100 06/11/20 16:00 4.0 06/11/20 16:00 Nasal Cannula 4.0 Nasal Cannula 4.0 06/11/20 15:00 84 19 128/71 (90) 100 06/11/20 14:00 85 18 129/69 (89) 100 06/11/20 13:00 85 21 124/73 (90) 100 06/11/20 12:00 87 06/11/20 12:00 4.0 06/11/20 12:00 98.0 85 23 123/69 (87) 99 06/11/20 12:00 Nasal Cannula 4.0 Nasal Cannula 4.0 06/11/20 11:00 88 23 125/68 (87) 95 06/11/20 10:00 91 24 122/70 (87) 96 Intake and Output 06/11/20 06/12/20 19:00 07:00 Intake Total 1185 ml 824 ml Output Total 948 ml 1020 ml Balance 237 ml -196 ml Intake Oral 450 ml 220 ml IV Total 655 ml 604 ml Tube Feeding 80 ml Output Urine Total 405 ml 450 ml Chest Tube Drainage Total 543 ml 570 ml # Bowel Movements 1 General Appearance: no acute distress Respiratory: chest wall non-tender, normal breath sounds, no respiratory distress, no accessory muscle use, decreased breath sounds Cardiovascular: normal peripheral pulses, normal rate Abdomen: normal bowel sounds Extremities: no cyanosis, no clubbing, no edema Microbiology Date/Time Source Procedure Growth Status 06/09/20 14:50 Sputum Gram Stain - Final Complete 06/09/20 14:50 Sputum Sputum Culture - Final NORMAL UPPER RESPIRATORY EDGAR PRESENT Complete 06/09/20 10:40 Body Fluid AFB Specimen Processing Tissue - Final Resulted 06/09/20 10:40 Body Fluid Acid Fast Bacilli Smear - Final Resulted 06/09/20 10:40 Body Fluid Acid Fast Bacilli Culture Pending Resulted 06/09/20 10:40 Body Fluid Gram Stain - Final Resulted 06/09/20 10:40 Body Fluid Body Fluid Culture - Preliminary NO GROWTH AFTER 48 HOURS Resulted Laboratory Tests 06/11/20 17:07: POC Whole Blood Glucose [Pending] 06/12/20 05:26: POC Whole Blood Glucose 128H Current Medications Medications (Trade) Dose Ordered Sig/Jennie Route PRN Reason Start Time Stop Time Status Last Admin Dose Admin Acetaminophen (Tylenol) 500 mg Q6H PRN ORAL Mild Pain (Pain Scale 1-3) 05/19/20 16:45 06/18/20 16:44 Acetaminophen/ Hydrocodone Bitart ([employer] 10/325) 1 tab Q4H PRN ORAL Pain Scale (6-10) 06/09/20 11:00 06/16/20 10:59 Acetaminophen/ Hydrocodone Bitart ([employer] 5/325) 1 tab Q4H PRN ORAL Moderate Pain (Pain Scale 4-6) 06/09/20 11:00 06/16/20 10:59 Allopurinol (allopurinoL) 300 mg DAILY ORAL 06/06/20 11:00 07/06/20 10:59 06/12/20 09:34 Barium Sulfate (Varibar Honey) 250 ml NOW PRN MC RAD 06/11/20 10:15 06/14/20 10:05 Barium Sulfate (Varibar [place]) 240 ml NOW PRN MC RAD 06/11/20 10:15 06/14/20 10:05 Barium Sulfate (Varibar Pudding) 230 ml NOW PRN RAD 06/11/20 10:15 06/14/20 10:05 Barium Sulfate (Varibar Thin Liquid powder) 148 gm NOW PRN RAD 06/11/20 10:15 06/14/20 10:05 Cefepime HCl 1 gm/ Dextrose 55 ml @ 110 mls/hr EVERY 12 HOURS IVPB 06/09/20 10:45 06/16/20 10:44 06/12/20 09:32 Clonidine HCl (Catapres Tab) 0.1 mg Q4H PRN ORAL SBP > 170 05/24/20 13:15 08/22/20 13:14 Dexamethasone Sodium Phosphate (Decadron 4mg/ml vial) 4 mg DAILY IVP 06/07/20 12:30 09/05/20 12:29 06/12/20 09:33 Dextrose (Dextrose 50%) 25 ml Q30M PRN IV Hypoglycemia 06/10/20 06:45 09/08/20 06:44 Dextrose (Dextrose 50%) 50 ml Q30M PRN IV Hypoglycemia 06/10/20 06:45 09/08/20 06:44 Docusate Sodium (Colace) 100 mg TWICE A DAY ORAL 05/22/20 18:00 06/21/20 17:59 06/12/20 09:30 Enoxaparin Sodium (Lovenox) 40 mg DAILY SUBQ 06/02/20 09:00 1/4/21 08:59 06/12/20 09:36 Insulin Aspart (NovoLOG) BEFORE MEALS AND HS SUBQ 06/05/20 06:30 09/03/20 06:29 06/11/20 20:43 Midodrine (Pro-Amatine) 10 mg THREE TIMES A DAY ORAL 06/08/20 13:00 09/06/20 12:59 06/12/20 09:30 Mirtazapine (Remeron) 7.5 mg BEDTIME ORAL 06/02/20 21:00 08/31/20 20:59 06/11/20 20:35 Morphine Sulfate (Morphine Sulfate) 2 mg Q4H PRN IVP Severe Pain (Pain Scale 7-10) 06/09/20 11:00 06/16/20 10:59 Pantoprazole (Protonix) 40 mg DAILY IVP 06/08/20 09:00 07/08/20 08:59 06/12/20 09:32 Sodium Chloride 500 ml @ 999 mls/hr Q31M PRN IV For hypotension 06/09/20 17:00 07/09/20 16:59 06/09/20 21:08 Sodium Chloride 1,000 ml @ 50 mls/hr Q20H IV 06/10/20 13:00 07/10/20 12:59 06/12/20 04:44 Assessment/Plan Assessment/Plan IMPRESSION: 1. History of CML, on dasatinib. 2. Possible pneumonia. 3. Large pleural effusion, s/p B thoracentesis. 4. Hypertension. 5. Elevated D-dimer DISCUSSION: S/p VATS, B Pleurex and lung biopsy Extubated now Transferred to [facility] Will dc IV fluids LUKAS elizaldeey DVT prophylaxis Michelet Hernandez Omar Syed MD Jun 12, 2020 09:43
--- NOTE | 2020-06-12 11:39 | Hematology/Onc Progress Note ---
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 Joseph has accessed--> for biospy pleural->pleural fluid neg for malignancy 06/11 --> 06/[address] --> imaging q2-3 days # HTN --> hydralazine and lisinopril --> sbp goal <140 # Dehydration --> goal of euvolemia # Elevated ddimer --> duplex lower ext r/o dvt==>neg # Dvt ppx lovenox sq Appreciate consultation and dw RN Subjective Constitutional: Denies: no symptoms, chills, fever, malaise, weakness, other HEENT: Denies: no symptoms, eye pain, blurred vision, tearing, double vision, ear pain, ear discharge, nose pain, nose congestion, throat pain, throat swelling, mouth pain, mouth swelling, other Cardiovascular: Denies: no symptoms, chest pain, edema, irregular heart rate, lightheadedness, palpitations, syncope, other Gastrointestinal/Abdominal: Denies: no symptoms, abdomen distended, abdominal pain, black stools, tarry stools, blood in stool, constipated, diarrhea, difficulty swallowing, nausea, poor appetite, poor fluid intake, rectal bleeding , vomiting, other Genitourinary: Denies: no symptoms, burning, discharge, frequency, flank pain, hematuria, incontinence, pain, urgency, other Endocrine: Denies: no symptoms, excessive sweating, flushing, intolerance to cold, intolerance to heat, increased hunger, increased thirst, increased urine, unexplained weight gain, unexplained weight loss, other Hematologic/Lymphatic: Denies: no symptoms, anemia, easy bleeding, easy bruising, adenopathy, other Allergies: Coded Allergies: No Known Allergies (Unverified , 05/19/20) Subjective 05/21 labs are noted, no bleeding, with pleural effusions due to desatanbib, s/p thora 05/22 labs are noted, no bleeding, on bipap, i dw her today to stop her med at once 05/24 wbc is improved, continue on ctx for one more day per id, bipap 05/26 have ordered for repeat cxr this am to reeval pleural effusions, labs noted 05/27 with b/l pleural effusions, aware from pulm, thora prn 05/28 has been refusing scds, thus will start lovenox today, breathing better s/p thora 05/29 with nonrebreather, for thora today, no night sweats, meds noted 05/31 remains on bipap, meds reviewed, off desatanib, worse effusion r>l 06/01 on bipap this am, labs pending for am 06/02 unable to wean off facemask, requiring it, will dw sister today 06/03 labs reviewed, meds noted, continues to be bipap support 06/04 no aspiration, is comfortable, meds reviewed, no bleeding 06/05 dw pulm yes, may need ct surg eval, chest tube, started steriods 06/06: labs reviewed no acute events overnight. 06/07 comfortable, no bleeding, meds reviewed, is on bipap still 06/08 labs reviewed, imaging noted, is on bipap this am 06/09 wbc higher, for procedure today, by cts, may get pleural biopsy 06/10 ct placed yest, today in am was intubated, but now extubated on nc in afternoon, dw Rn 06/11 labs reviewed, no bleeding, remains in the icu, wbc 19 06/12 breathing has improved,cbc ordered, no bleeding, labs noted Objective Objective Current Medications Medications (Trade) Dose Ordered Sig/Jennie Route PRN Reason Start Time Stop Time Status Last Admin Dose Admin Acetaminophen (Tylenol) 500 mg Q6H PRN ORAL Mild Pain (Pain Scale 1-3) 05/19/20 16:45 06/18/20 16:44 Acetaminophen/ Hydrocodone Bitart (Brilliant 10/325) 1 tab Q4H PRN ORAL Pain Scale (6-10) 06/09/20 11:00 06/16/20 10:59 Acetaminophen/ Hydrocodone Bitart (Brilliant 5/325) 1 tab Q4H PRN ORAL Moderate Pain (Pain Scale 4-6) 06/09/20 11:00 06/16/20 10:59 Allopurinol (allopurinoL) 300 mg DAILY ORAL 06/06/20 11:00 07/06/20 10:59 06/12/20 09:34 Barium Sulfate (Varibar Honey) 250 ml NOW PRN MC RAD 06/11/20 10:15 06/14/20 10:05 Barium Sulfate (Varibar Clementon) 240 ml NOW PRN MC RAD 06/11/20 10:15 06/14/20 10:05 Barium Sulfate (Varibar Pudding) 230 ml NOW PRN MC RAD 06/11/20 10:15 06/14/20 10:05 Barium Sulfate (Varibar Thin Liquid powder) 148 gm NOW PRN MC RAD 06/11/20 10:15 06/14/20 10:05 Cefepime HCl 1 gm/ Dextrose 55 ml @ 110 mls/hr EVERY 12 HOURS IVPB 06/09/20 10:45 06/16/20 10:44 06/12/20 09:32 Clonidine HCl (Catapres Tab) 0.1 mg Q4H PRN ORAL SBP > 170 05/24/20 13:15 08/22/20 13:14 Dexamethasone Sodium Phosphate (Decadron 4mg/ml vial) 4 mg DAILY IVP 06/07/20 12:30 09/05/20 12:29 06/12/20 09:33 Dextrose (Dextrose 50%) 25 ml Q30M PRN IV Hypoglycemia 06/10/20 06:45 09/08/20 06:44 Dextrose (Dextrose 50%) 50 ml Q30M PRN IV Hypoglycemia 06/10/20 06:45 09/08/20 06:44 Docusate Sodium (Colace) 100 mg TWICE A DAY ORAL 05/22/20 18:00 06/21/20 17:59 06/12/20 09:30 Enoxaparin Sodium (Lovenox) 40 mg DAILY SUBQ 06/02/20 09:00 08/31/20 08:59 06/12/20 09:36 Insulin Aspart (NovoLOG) BEFORE MEALS AND HS SUBQ 06/05/20 06:30 09/03/20 06:29 06/11/20 20:43 Midodrine (Pro-Amatine) 10 mg THREE TIMES A DAY ORAL 06/08/20 13:00 09/06/20 12:59 06/12/20 09:30 Mirtazapine (Remeron) 7.5 mg BEDTIME ORAL 06/02/20 21:00 08/31/20 20:59 06/11/20 20:35 Morphine Sulfate (Morphine Sulfate) 2 mg Q4H PRN IVP Severe Pain (Pain Scale 7-10) 06/09/20 11:00 06/16/20 10:59 Pantoprazole (Protonix) 40 mg DAILY IVP 06/08/20 09:00 07/08/20 08:59 06/12/20 09:32 Sodium Chloride 500 ml @ 999 mls/hr Q31M PRN IV For hypotension 06/09/20 17:00 07/09/20 16:59 06/09/20 21:08 Last 24 Hour Vital Signs Date Time Temp Pulse Resp B/P (MAP) Pulse Ox O2 Delivery O2 Flow Rate FiO2 06/12/20 08:00 89 06/12/20 08:00 Nasal Cannula 4.0 Nasal Cannula 4.0 06/12/20 08:00 97.5 85 19 134/74 (94) 97 06/12/20 08:00 4.0 06/12/20 04:00 97.7 85 21 123/72 (89) 100 06/12/20 04:00 4.0 06/12/20 04:00 Nasal Cannula 4.0 Nasal Cannula 4.0 06/12/20 03:49 84 06/12/20 00:00 97.7 79 21 115/65 (82) 100 06/12/20 00:00 4.0 06/12/20 00:00 Nasal Cannula 4.0 Nasal Cannula 4.0 06/12/20 00:00 77 06/11/20 21:59 81 06/11/20 21:00 84 21 111/64 (80) 100 06/11/20 20:00 4.0 06/11/20 20:00 96 06/11/20 20:00 98.3 88 21 106/63 (77) 100 06/11/20 20:00 Nasal Cannula 4.0 Nasal Cannula 4.0 06/11/20 19:00 97 22 130/74 (92) 99 06/11/20 18:00 90 23 132/77 (95) 100 06/11/20 17:00 86 20 124/71 (88) 100 06/11/20 16:00 89 06/11/20 16:00 90 27 126/73 (90) 100 06/11/20 16:00 98.2 88 22 122/68 (86) 100 06/11/20 16:00 4.0 06/11/20 16:00 Nasal Cannula 4.0 Nasal Cannula 4.0 06/11/20 15:00 84 19 128/71 (90) 100 06/11/20 14:00 85 18 129/69 (89) 100 06/11/20 13:00 85 21 124/73 (90) 100 06/11/20 12:00 87 06/11/20 12:00 4.0 06/11/20 12:00 98.0 85 23 123/69 (87) 99 06/11/20 12:00 Nasal Cannula 4.0 Nasal Cannula 4.0 06/11/20 11:00 88 23 125/68 (87) 95 06/11/20 10:00 91 24 122/70 (87) 96 06/11/20 09:40 Nasal Cannula 4.0 Nasal Cannula 4.0 06/11/20 09:00 97 25 130/69 (89) 98 06/11/20 08:00 Nasal Cannula 4.0 Nasal Cannula 4.0 06/11/20 08:00 97.9 96 24 121/69 (86) 99 06/11/20 08:00 95 06/11/20 08:00 4.0 06/11/20 07:45 100 Nasal Cannula 4.0 36 06/11/20 07:00 93 19 101/62 (75) 98 06/11/20 06:00 94 25 113/66 (82) 97 06/11/20 05:00 92 25 115/63 (80) 96 06/11/20 04:00 Nasal Cannula 2.0 Nasal Cannula 2.0 06/11/20 04:00 95 06/11/20 04:00 4.0 06/11/20 04:00 101 26 109/57 (74) 98 06/11/20 03:00 96 21 100/53 (69) 99 06/11/20 02:00 96.5 101 24 107/51 (69) 97 06/11/20 01:00 96 20 115/50 (71) 99 06/11/20 00:00 Nasal Cannula 2.0 Nasal Cannula 2.0 06/11/20 00:00 97 20 118/49 (72) 99 06/10/20 23:00 95 20 103/47 (65) 98 06/10/20 22:00 98 24 113/56 (75) 97 06/10/20 21:00 90 25 107/58 (74) 95 06/10/20 20:33 97 Nasal Cannula 5.0 40 06/10/20 20:00 90 06/10/20 20:00 96.0 86 25 112/57 (75) 96 06/10/20 20:00 2.0 06/10/20 20:00 Nasal Cannula 2.0 Nasal Cannula 2.0 06/10/20 19:17 97 Nasal Cannula 2.0 06/10/20 19:00 86 24 114/61 (78) 96 06/10/20 18:00 83 19 105/58 (74) 98 06/10/20 17:00 85 17 104/63 (77) 98 06/10/20 16:00 Nasal Cannula 2.0 Nasal Cannula 2.0 06/10/20 16:00 85 19 102/66 (78) 99 06/10/20 16:00 2.0 06/10/20 15:45 84 06/10/20 15:00 84 24 110/61 (77) 98 06/10/20 14:00 85 18 109/62 (78) 96 06/10/20 13:40 Nasal Cannula 2.0 06/10/20 13:30 Nasal Cannula 2.0 Nasal Cannula 2.0 06/10/20 13:30 Nasal Cannula 2.0 06/10/20 13:30 2.0 06/10/20 13:00 89 20 111/70 (84) 98 06/10/20 12:00 Endotracheal Tube Endotracheal Tube 06/10/20 12:00 98.5 84 20 107/55 (72) 98 Intake and Output 06/11/20 06/12/20 19:00 07:00 Intake Total 1185 ml 824 ml Output Total 948 ml 1020 ml Balance 237 ml -196 ml Intake Oral 450 ml 220 ml IV Total 655 ml 604 ml Tube Feeding 80 ml Output Urine Total 405 ml 450 ml Chest Tube Drainage Total 543 ml 570 ml # Bowel Movements 1 Labs Test 06/09/20 20:46 06/10/20 03:15 06/10/20 04:29 06/10/20 05:45 POC Whole Blood Glucose 213 MG/DL (74-106) White Blood Count 16.2 K/UL (4.8-10.8) Red Blood Count 3.97 M/UL (4.20-5.40) Hemoglobin 11.3 G/DL (12.0-16.0) Hematocrit 33.6 % (37.0-47.0) Mean Corpuscular Volume 85 FL (80-99) Mean Corpuscular Hemoglobin 28.5 PG (27.0-31.0) Mean Corpuscular Hemoglobin Concent 33.6 G/DL (32.0-36.0) Red Cell Distribution Width 14.3 % (11.6-14.8) Platelet Count 290 K/UL (150-450) Mean Platelet Volume 6.0 FL (6.5-10.1) Neutrophils (%) (Auto) % (45.0-75.0) Lymphocytes (%) (Auto) % (20.0-45.0) Monocytes (%) (Auto) % (1.0-10.0) Eosinophils (%) (Auto) % (0.0-3.0) Basophils (%) (Auto) % (0.0-2.0) Differential Total Cells Counted 100 Neutrophils % (Manual) 97 % (45-75) Lymphocytes % (Manual) 3 % (20-45) Monocytes % (Manual) 0 % (1-10) Eosinophils % (Manual) 0 % (0-3) Basophils % (Manual) 0 % (0-2) Band Neutrophils 0 % (0-8) Platelet Estimate Adequate Platelet Morphology Normal Red Blood Cell Morphology Normal C-Reactive Protein, Quantitative 17.9 mg/dL (0.00-0.90) Pro-B-Type Natriuretic Peptide 18270 pg/mL (0-125) Ionized Calcium (Measured) 0.93 mmol/L (1.10-1.35) Sodium Level 136 MMOL/L (136-145) Potassium Level 4.5 MMOL/L (3.5-5.1) Chloride Level 102 MMOL/L (98-107) Carbon Dioxide Level 26 MMOL/L (21-32) Anion Gap 9 mmol/L (5-15) Blood Urea Nitrogen 78 mg/dL (7-18) Creatinine 1.5 MG/DL (0.55-1.30) Estimat Glomerular Filtration Rate 35.3 mL/min (>60) Glucose Level 335 MG/DL (74-106) Calcium Level 7.8 MG/DL (8.5-10.1) Phosphorus Level 2.5 MG/DL (2.5-4.9) Magnesium Level 2.4 MG/DL (1.8-2.4) Total Bilirubin 0.4 MG/DL (0.2-1.0) Aspartate Amino Transf (AST/SGOT) 53 U/L (15-37) Alanine Aminotransferase (ALT/SGPT) 19 U/L (12-78) Alkaline Phosphatase 87 U/L (46-116) Total Protein 4.8 G/DL (6.4-8.2) Albumin 2.1 G/DL (3.4-5.0) Globulin 2.7 g/dL Albumin/Globulin Ratio 0.8 (1.0-2.7) Test 06/10/20 20:40 06/11/20 04:15 06/11/20 17:07 06/12/20 05:26 POC Whole Blood Glucose 96 MG/DL (74-106) 128 MG/DL (74-106) White Blood Count 19.1 K/UL (4.8-10.8) Red Blood Count 4.44 M/UL (4.20-5.40) Hemoglobin 12.7 G/DL (12.0-16.0) Hematocrit 37.3 % (37.0-47.0) Mean Corpuscular Volume 84 FL (80-99) Mean Corpuscular Hemoglobin 28.6 PG (27.0-31.0) Mean Corpuscular Hemoglobin Concent 34.0 G/DL (32.0-36.0) Red Cell Distribution Width 14.5 % (11.6-14.8) Platelet Count 301 K/UL (150-450) Mean Platelet Volume 6.3 FL (6.5-10.1) Neutrophils (%) (Auto) % (45.0-75.0) Lymphocytes (%) (Auto) % (20.0-45.0) Monocytes (%) (Auto) % (1.0-10.0) Eosinophils (%) (Auto) % (0.0-3.0) Basophils (%) (Auto) % (0.0-2.0) Differential Total Cells Counted 100 Neutrophils % (Manual) 94 % (45-75) Lymphocytes % (Manual) 4 % (20-45) Monocytes % (Manual) 2 % (1-10) Eosinophils % (Manual) 0 % (0-3) Basophils % (Manual) 0 % (0-2) Band Neutrophils 0 % (0-8) Platelet Estimate Adequate Platelet Morphology Normal Anisocytosis 1+ Sodium Level 141 MMOL/L (136-145) Potassium Level 4.2 MMOL/L (3.5-5.1) Chloride Level 107 MMOL/L (98-107) Carbon Dioxide Level 28 MMOL/L (21-32) Anion Gap 6 mmol/L (5-15) Blood Urea Nitrogen 66 mg/dL (7-18) Creatinine 1.1 MG/DL (0.55-1.30) Estimat Glomerular Filtration Rate 50.5 mL/min (>60) Glucose Level 188 MG/DL (74-106) Uric Acid 8.8 MG/DL (2.6-7.2) Calcium Level 7.8 MG/DL (8.5-10.1) Phosphorus Level 2.3 MG/DL (2.5-4.9) Magnesium Level 2.5 MG/DL (1.8-2.4) Total Bilirubin 0.3 MG/DL (0.2-1.0) Gamma Glutamyl Transpeptidase 25 U/L (5-85) Aspartate Amino Transf (AST/SGOT) 27 U/L (15-37) Alanine Aminotransferase (ALT/SGPT) 15 U/L (12-78) Alkaline Phosphatase 110 U/L (46-116) C-Reactive Protein, Quantitative 12.5 mg/dL (0.00-0.90) Pro-B-Type Natriuretic Peptide 97947 pg/mL (0-125) Total Protein 4.8 G/DL (6.4-8.2) Albumin 1.7 G/DL (3.4-5.0) Globulin 3.1 g/dL Albumin/Globulin Ratio 0.5 (1.0-2.7) Height (Feet): 5 Height (Inches): 0.00 Weight (Pounds): 111 Objective Physical Exam: Vitals: reviewed General: NAD HEENT: nc, at Neck: supple Chest: clear breath sounds bilaterally ++ left sided chest tube Cardiovascular: RRR, no s3, s4 Abdomen: soft, nontender, nd Extremities: no cce, normal range of motion Dionicio Higgins MD Jun 12, 2020 11:39
[2020-06-12 11:49] VITALS: BP 142/77
--- NOTE | 2020-06-12 12:18 | Nephrology Progress Note ---
Assessment/Plan Problem List: (1) ASHLEY (acute kidney injury) (2) Bilateral pleural effusion (3) Leukemia Assessment Imp: Acute renal failure, with sudden jump in serum creatinine to 2.7 History of leukemia Hypertension, now hypotensive Hyponatremia on admission, improved Bilateral pleural effusion. Status post paracentesis. Elevated troponin, most likely leak. Plan June 12: Now in [facility]. Discussed with RN. No chemistry panel done today. On nasal cannula. Daughter in room present. Chest tubes present. Below are the lab for tomorrow. Continue per consultants. June 11: Seen in ICU. Discussed with RN. Patient was extubated. On nasal cannula. Bilateral chest tubes still in. Labs reviewed. Renal parameters improved. Electrolytes within normal limit. Continue per current management. June 10: Patient remains in ICU. Has chest tubes on the left and on the right. Remains intubated on ventilator. Due for weaning today. Labs reviewed. BUN and creatinine marli. Will change the IV to normal saline 50 cc an hour. Will discontinue Zaroxolyn. We will continue to monitor renal parameters and electrolytes. Continue per consultants. June 09: Patient now in ICU postop. Has bilateral chest tube. Intubated on ventilator. Today's labs reviewed. Continue per consultants. Continue to monitor renal parameters. June 08: Status quo. Continues on BiPAP. Due for VATS tomorrow. Start midodrine for low blood pressure. June 06: Status unchanged. Labs reviewed. Renal parameters stable. Continue per consultants. Remains full code. Remains on BiPAP. June 05: Electrolytes now normalized. Discussed with RN. Patient due for VATS surgery early next week. Continue current pulmonary support and monitor renal parameters. June 04: Potassium low. Creatinine higher. Will discontinue IV Lasix as the patient already on metolazone. Potassium supplement ordered. 250 mL of 3% saline ordered. Continue to monitor electrolytes and renal parameters. Continue per consultants. June 03: Discussed with Dr. Olson. Patient's pleural effusions continue to be a challenge. Patient on diuretics. Will watch renal parameters and electrolytes. Patient was already tapped twice. Continue per current management. June 02: No chemistry panel done today. Status unchanged. Remains on nonrebreathing mask. Will check lab tomorrow. Continue per pulmonary. June 01: Labs reviewed. Status unchanged. Remains on nonrebreathing mask. Will increase his Lasix to 40 twice daily. Stable electrolytes and renal parameters at this time. May 31: No chemistry panel done today. Patient still on nonrebreathing mask. Patient full code. Will check lab tomorrow. Patient's main issue is respirato ry. May 30: Labs reviewed. Renal parameters stable. Continue per pulmonary. May 29: No chemistry panel done today. Remains on nonrebreather mask. Will order labs tomorrow. Continue per consultants. May 28: Serum creatinine up to 1.5. Remains on nonrebreather mask. Since admission had 3 thoracenteses for pleural effusion over the left and right. Respiratory status remains unstable. Continue per pulmonary. Will watch renal parameters. May 27: When seen the patient was on 100% nonrebreather mask. Renal panel within normal limit. Continue per consultants. Main problem remains respiratory. May 26: Renal parameters stable. Started on Lasix 40 mg daily. Continue to monitor renal parameters and electrolytes. Continue per consultants. May 25: Renal parameters within normal limit. Another dose of IV Lasix given. Continue to monitor electrolytes. Continue per consultants. May 24: Renal parameters normalized. Will give the Lasix 40 mg IV once. 1 dose of Kayexalate for hyperkalemia. Continue to monitor renal parameters. Previously: Today renal parameters are improved. Serum creatinine down to 1.6 from 2.7 Continue to hold lisinopril Continue to hold Lasix Half Normal saline 100 cc an hour one liter only was given yesterday Albumin bolus given yesterday, repeat as needed Monitor renal parameters Avoid nephrotoxic's Subjective ROS Limited/Unobtainable: No Constitutional: Reports: malaise Objective Objective Last 24 Hour Vital Signs Date Time Temp Pulse Resp B/P (MAP) Pulse Ox O2 Delivery O2 Flow Rate FiO2 06/12/20 12:00 4.0 06/12/20 11:49 97.7 84 22 142/77 (98) 96 06/12/20 08:00 89 06/12/20 08:00 Nasal Cannula 4.0 Nasal Cannula 4.0 06/12/20 08:00 97.5 85 19 134/74 (94) 97 06/12/20 08:00 4.0 06/12/20 04:00 97.7 85 21 123/72 (89) 100 06/12/20 04:00 4.0 06/12/20 04:00 Nasal Cannula 4.0 Nasal Cannula 4.0 06/12/20 03:49 84 06/12/20 00:00 97.7 79 21 115/65 (82) 100 06/12/20 00:00 4.0 06/12/20 00:00 Nasal Cannula 4.0 Nasal Cannula 4.0 06/12/20 00:00 77 06/11/20 21:59 81 06/11/20 21:00 84 21 111/64 (80) 100 06/11/20 20:00 4.0 06/11/20 20:00 96 06/11/20 20:00 98.3 88 21 106/63 (77) 100 06/11/20 20:00 Nasal Cannula 4.0 Nasal Cannula 4.0 06/11/20 19:00 97 22 130/74 (92) 99 06/11/20 18:00 90 23 132/77 (95) 100 06/11/20 17:00 86 20 124/71 (88) 100 06/11/20 16:00 89 06/11/20 16:00 90 27 126/73 (90) 100 06/11/20 16:00 98.2 88 22 122/68 (86) 100 06/11/20 16:00 4.0 06/11/20 16:00 Nasal Cannula 4.0 Nasal Cannula 4.0 06/11/20 15:00 84 19 128/71 (90) 100 06/11/20 14:00 85 18 129/69 (89) 100 06/11/20 13:00 85 21 124/73 (90) 100 Intake and Output 06/11/20 06/12/20 19:00 07:00 Intake Total 1185 ml 824 ml Output Total 948 ml 1020 ml Balance 237 ml -196 ml Intake Oral 450 ml 220 ml IV Total 655 ml 604 ml Tube Feeding 80 ml Output Urine Total 405 ml 450 ml Chest Tube Drainage Total 543 ml 570 ml # Bowel Movements 1 Laboratory Tests 06/11/20 17:07: POC Whole Blood Glucose [Pending] 06/12/20 05:26: POC Whole Blood Glucose 128H 06/12/20 11:41: POC Whole Blood Glucose 214H Height (Feet): 5 Height (Inches): 0.00 Weight (Pounds): 111 General Appearance: no apparent distress EENT: other - On nasal cannula Cardiovascular: normal rate Respiratory/Chest: decreased breath sounds, other - Chest tubes present Objective No change Montrell Carpio MD Jun 12, 2020 12:18
[2020-06-12 12:59] LABS: HEMATOCRIT 39.3 % (37.0-47.0); HEMOGLOBIN 12.9 G/DL (12.0-16.0); MEAN CORPUSCULAR VOLUME 85 FL (80-99); PLATELET COUNT 305 K/UL (150-450); RED CELL DISTRIBUTION WIDTH 14.8 % (11.6-14.8)
--- NOTE | 2020-06-12 13:23 | Infectious Diseases Prog Note ---
Assessment/Plan Assessment/Plan IMPRESSION: Leukocytosis, steroid related systemic inflammatory response syndrome or sepsis, Recurrent pleural effusion, CML, Accelerated hypertension, Elevation of troponin. Hypoxemia Hyperglycemia Anxiety disorder Perioperative respiratory failure Azotemia Pneumothorax, left side RECOMMENDATION: Continue Cefepime Subjective ROS Limited/Unobtainable: Yes Constitutional: Reports: no symptoms, other - transferred from ICU to [facility] Respiratory: Reports: dry cough Gastrointestinal/Abdominal: Denies: diarrhea Allergies: Coded Allergies: No Known Allergies (Unverified , 05/19/20) Objective Last 24 Hour Vital Signs Date Time Temp Pulse Resp B/P (MAP) Pulse Ox O2 Delivery O2 Flow Rate FiO2 06/12/20 12:00 89 06/12/20 12:00 Nasal Cannula 4.0 Nasal Cannula 4.0 06/12/20 12:00 4.0 06/12/20 11:49 97.7 84 22 142/77 (98) 96 06/12/20 08:00 89 06/12/20 08:00 Nasal Cannula 4.0 Nasal Cannula 4.0 06/12/20 08:00 97.5 85 19 134/74 (94) 97 06/12/20 08:00 4.0 06/12/20 04:00 97.7 85 21 123/72 (89) 100 06/12/20 04:00 4.0 06/12/20 04:00 Nasal Cannula 4.0 Nasal Cannula 4.0 06/12/20 03:49 84 06/12/20 00:00 97.7 79 21 115/65 (82) 100 06/12/20 00:00 4.0 06/12/20 00:00 Nasal Cannula 4.0 Nasal Cannula 4.0 06/12/20 00:00 77 06/11/20 21:59 81 06/11/20 21:00 84 21 111/64 (80) 100 06/11/20 20:00 4.0 06/11/20 20:00 96 06/11/20 20:00 98.3 88 21 106/63 (77) 100 06/11/20 20:00 Nasal Cannula 4.0 Nasal Cannula 4.0 06/11/20 19:00 97 22 130/74 (92) 99 06/11/20 18:00 90 23 132/77 (95) 100 06/11/20 17:00 86 20 124/71 (88) 100 06/11/20 16:00 89 06/11/20 16:00 90 27 126/73 (90) 100 06/11/20 16:00 98.2 88 22 122/68 (86) 100 06/11/20 16:00 4.0 06/11/20 16:00 Nasal Cannula 4.0 Nasal Cannula 4.0 06/11/20 15:00 84 19 128/71 (90) 100 06/11/20 14:00 85 18 129/69 (89) 100 Height (Feet): 5 Height (Inches): 0.00 Weight (Pounds): 111 HEENT: mucous membranes moist Respiratory/Chest: lungs clear, other - Bilateral chest tubes Cardiovascular: normal rate Abdomen: soft, non tender Extremities: no edema Neurologic/Psychiatric: alert, oriented x 3, responsive Microbiology Date/Time Source Procedure Growth Status 06/09/20 14:50 Sputum Gram Stain - Final Complete 06/09/20 14:50 Sputum Sputum Culture - Final NORMAL UPPER RESPIRATORY EDGAR PRESENT Complete Laboratory Tests Test 06/11/20 17:07 06/12/20 05:26 06/12/20 11:41 06/12/20 12:20 POC Whole Blood Glucose Pending 128 MG/DL (74-106) H 214 MG/DL (74-106) H White Blood Count 19.0 K/UL (4.8-10.8) H Red Blood Count 4.60 M/UL (4.20-5.40) Hemoglobin 12.9 G/DL (12.0-16.0) Hematocrit 39.3 % (37.0-47.0) Mean Corpuscular Volume 85 FL (80-99) Mean Corpuscular Hemoglobin 28.0 PG (27.0-31.0) Mean Corpuscular Hemoglobin Concent 32.7 G/DL (32.0-36.0) Red Cell Distribution Width 14.8 % (11.6-14.8) Platelet Count 305 K/UL (150-450) Mean Platelet Volume 6.6 FL (6.5-10.1) Neutrophils (%) (Auto) % (45.0-75.0) Lymphocytes (%) (Auto) % (20.0-45.0) Monocytes (%) (Auto) % (1.0-10.0) Eosinophils (%) (Auto) % (0.0-3.0) Basophils (%) (Auto) % (0.0-2.0) Differential Total Cells Counted 100 Neutrophils % (Manual) 95 % (45-75) H Lymphocytes % (Manual) 3 % (20-45) L Monocytes % (Manual) 2 % (1-10) Eosinophils % (Manual) 0 % (0-3) Basophils % (Manual) 0 % (0-2) Band Neutrophils 0 % (0-8) Platelet Estimate Adequate Platelet Morphology Normal Anisocytosis 1+ Current Medications Medications (Trade) Dose Ordered Sig/Jennie Route PRN Reason Start Time Stop Time Status Last Admin Dose Admin Acetaminophen (Tylenol) 500 mg Q6H PRN ORAL Mild Pain (Pain Scale 1-3) 05/19/20 16:45 06/18/20 16:44 Acetaminophen/ Hydrocodone Bitart ([place] 10/325) 1 tab Q4H PRN ORAL Pain Scale (6-10) 06/09/20 11:00 06/16/20 10:59 Acetaminophen/ Hydrocodone Bitart ([place] 5/325) 1 tab Q4H PRN ORAL Moderate Pain (Pain Scale 4-6) 06/09/20 11:00 06/16/20 10:59 Allopurinol (allopurinoL) 300 mg DAILY ORAL 06/06/20 11:00 07/06/20 10:59 06/12/20 09:34 Barium Sulfate (Varibar Honey) 250 ml NOW PRN MC RAD 06/11/20 10:15 06/14/20 10:05 Barium Sulfate (Varibar Zachary) 240 ml NOW PRN MC RAD 06/11/20 10:15 06/14/20 10:05 Barium Sulfate (Varibar Pudding) 230 ml NOW PRN MC RAD 06/11/20 10:15 06/14/20 10:05 Barium Sulfate (Varibar Thin Liquid powder) 148 gm NOW PRN MC RAD 06/11/20 10:15 06/14/20 10:05 Cefepime HCl 1 gm/ Dextrose 55 ml @ 110 mls/hr EVERY 12 HOURS IVPB 06/09/20 10:45 06/16/20 10:44 06/12/20 09:32 Clonidine HCl (Catapres Tab) 0.1 mg Q4H PRN ORAL SBP > 170 05/24/20 13:15 08/22/20 13:14 Dexamethasone Sodium Phosphate (Decadron 4mg/ml vial) 4 mg DAILY IVP 06/07/20 12:30 09/05/20 12:29 06/12/20 09:33 Dextrose (Dextrose 50%) 25 ml Q30M PRN IV Hypoglycemia 06/10/20 06:45 09/08/20 06:44 Dextrose (Dextrose 50%) 50 ml Q30M PRN IV Hypoglycemia 06/10/20 06:45 09/08/20 06:44 Docusate Sodium (Colace) 100 mg TWICE A DAY ORAL 05/22/20 18:00 06/21/20 17:59 06/12/20 09:30 Enoxaparin Sodium (Lovenox) 40 mg DAILY SUBQ 06/02/20 09:00 08/31/20 08:59 06/12/20 09:36 Insulin Aspart (NovoLOG) BEFORE MEALS AND HS SUBQ 06/05/20 06:30 09/03/20 06:29 06/12/20 11:48 Midodrine (Pro-Amatine) 10 mg THREE TIMES A DAY ORAL 06/08/20 13:00 09/06/20 12:59 06/12/20 09:30 Mirtazapine (Remeron) 7.5 mg BEDTIME ORAL 06/02/20 21:00 08/31/20 20:59 06/11/20 20:35 Morphine Sulfate (Morphine Sulfate) 2 mg Q4H PRN IVP Severe Pain (Pain Scale 7-10) 06/09/20 11:00 06/16/20 10:59 Pantoprazole (Protonix) 40 mg DAILY IVP 06/08/20 09:00 07/08/20 08:59 06/12/20 09:32 Sodium Chloride 500 ml @ 999 mls/hr Q31M PRN IV For hypotension 06/09/20 17:00 07/09/20 16:59 06/09/20 21:08 Timothy Pennington MD Jun 12, 2020 13:23
--- NOTE | 2020-06-12 15:08 | Cardiac Electrophysiology PN ---
Assessment/Plan Assessment/Plan 1. Hypertension. Stable off BP meds 2. Troponin leak. No CP, ECG non ischemic and due to renal failure 3. Bilateral pleural effusions. S/P Right side thoracentesis x 2. FU by Dr. Olson. S/P Left thoracentesis again x2 last one 05/29/20. S/P VATS by Dr Joseph with bilateral chest tubes 06/09/20. Extubated and on nasal cannula 4. Hyponatremia. 5. CML x 5 years, sees oncologist in [facility] named [facility] area DCed desatanib (also is the likely cause of pleural effusions) Per Dr Dolan 6. Acute renal failure with sudden JUMP in creatinine to 2.7. FU Dr Carpio. Better after iv fluid, Albumin and off Lisinopril. Cr down to 1.1 DW RN Subjective Subjective S/P 2 Right sided thoracentesis on 05/21/20 and 05/26/20 S/P 2 Left thoracentesis last one 05/29/20 S/P VATS by Dr. Joseph 06/09/20. Extubated and off pressors. Has Bilateral chest tubes On 4 liter Nasal cannula. Objective Last 24 Hour Vital Signs Date Time Temp Pulse Resp B/P (MAP) Pulse Ox O2 Delivery O2 Flow Rate FiO2 06/12/20 12:00 89 06/12/20 12:00 Nasal Cannula 4.0 Nasal Cannula 4.0 06/12/20 12:00 4.0 06/12/20 11:49 97.7 84 22 142/77 (98) 96 06/12/20 08:00 89 06/12/20 08:00 Nasal Cannula 4.0 Nasal Cannula 4.0 06/12/20 08:00 97.5 85 19 134/74 (94) 97 06/12/20 08:00 4.0 06/12/20 04:00 97.7 85 21 123/72 (89) 100 06/12/20 04:00 4.0 06/12/20 04:00 Nasal Cannula 4.0 Nasal Cannula 4.0 06/12/20 03:49 84 06/12/20 00:00 97.7 79 21 115/65 (82) 100 06/12/20 00:00 4.0 06/12/20 00:00 Nasal Cannula 4.0 Nasal Cannula 4.0 06/12/20 00:00 77 06/11/20 21:59 81 06/11/20 21:00 84 21 111/64 (80) 100 06/11/20 20:00 4.0 06/11/20 20:00 96 06/11/20 20:00 98.3 88 21 106/63 (77) 100 06/11/20 20:00 Nasal Cannula 4.0 Nasal Cannula 4.0 06/11/20 19:00 97 22 130/74 (92) 99 06/11/20 18:00 90 23 132/77 (95) 100 06/11/20 17:00 86 20 124/71 (88) 100 06/11/20 16:00 89 06/11/20 16:00 90 27 126/73 (90) 100 06/11/20 16:00 98.2 88 22 122/68 (86) 100 06/11/20 16:00 4.0 06/11/20 16:00 Nasal Cannula 4.0 Nasal Cannula 4.0 Intake and Output 06/11/20 06/12/20 19:00 07:00 Intake Total 1185 ml 824 ml Output Total 948 ml 1020 ml Balance 237 ml -196 ml Intake Oral 450 ml 220 ml IV Total 655 ml 604 ml Tube Feeding 80 ml Output Urine Total 405 ml 450 ml Chest Tube Drainage Total 543 ml 570 ml # Bowel Movements 1 Laboratory Tests Test 06/11/20 17:07 06/12/20 05:26 06/12/20 11:41 06/12/20 12:20 POC Whole Blood Glucose Pending 128 MG/DL (74-106) H 214 MG/DL (74-106) H White Blood Count 19.0 K/UL (4.8-10.8) H Red Blood Count 4.60 M/UL (4.20-5.40) Hemoglobin 12.9 G/DL (12.0-16.0) Hematocrit 39.3 % (37.0-47.0) Mean Corpuscular Volume 85 FL (80-99) Mean Corpuscular Hemoglobin 28.0 PG (27.0-31.0) Mean Corpuscular Hemoglobin Concent 32.7 G/DL (32.0-36.0) Red Cell Distribution Width 14.8 % (11.6-14.8) Platelet Count 305 K/UL (150-450) Mean Platelet Volume 6.6 FL (6.5-10.1) Neutrophils (%) (Auto) % (45.0-75.0) Lymphocytes (%) (Auto) % (20.0-45.0) Monocytes (%) (Auto) % (1.0-10.0) Eosinophils (%) (Auto) % (0.0-3.0) Basophils (%) (Auto) % (0.0-2.0) Differential Total Cells Counted 100 Neutrophils % (Manual) 95 % (45-75) H Lymphocytes % (Manual) 3 % (20-45) L Monocytes % (Manual) 2 % (1-10) Eosinophils % (Manual) 0 % (0-3) Basophils % (Manual) 0 % (0-2) Band Neutrophils 0 % (0-8) Platelet Estimate Adequate Platelet Morphology Normal Anisocytosis 1+ Objective HEAD AND NECK: No JVD. LUNGS: Decreased breath sounds.Bilateral chest tubes in place CARDIOVASCULAR: Regular S1 and S2 and tachycardic. ABDOMEN: Soft. EXTREMITIES: No pitting edema. Cristian England MD Jun 12, 2020 15:08
--- NOTE | 2020-06-12 15:34 | Diagnostic Imaging Report ---
Indication: Shortness of breath Technique: One view of the chest Comparison: 06/11/2020 Findings: Bilateral chest tubes remain. There is decreased pleural fluid on the right. There is equivocally a tiny sliver of a pneumothorax at the right lung apex. Small left pneumothorax persists, but appears significantly improved compared to the prior exam. Parenchymal opacities are seen at the right lung base and in the left midlung. There is slightly decreased subcutaneous emphysema in the left chest wall. Nasogastric tube is been removed. Impression: Decreased right pleural effusion Decreased left pneumothorax Decreased left chest wall subcutaneous emphysema Persistent parenchymal infiltrates bilaterally
[2020-06-12 16:00] VITALS: BP 113/71
--- NOTE | 2020-06-12 16:06 | General Progress Note ---
Subjective Allergies: Coded Allergies: No Known Allergies (Unverified , 05/19/20) Subjective Seen this am doing better breathing better tolerating PO diet Objective Last 24 Hour Vital Signs Date Time Temp Pulse Resp B/P (MAP) Pulse Ox O2 Delivery O2 Flow Rate FiO2 06/12/20 16:00 4.0 06/12/20 15:59 86 06/12/20 12:00 89 06/12/20 12:00 Nasal Cannula 4.0 Nasal Cannula 4.0 06/12/20 12:00 4.0 06/12/20 11:49 97.7 84 22 142/77 (98) 96 06/12/20 08:00 89 06/12/20 08:00 Nasal Cannula 4.0 Nasal Cannula 4.0 06/12/20 08:00 97.5 85 19 134/74 (94) 97 06/12/20 08:00 4.0 06/12/20 04:00 97.7 85 21 123/72 (89) 100 06/12/20 04:00 4.0 06/12/20 04:00 Nasal Cannula 4.0 Nasal Cannula 4.0 06/12/20 03:49 84 06/12/20 00:00 97.7 79 21 115/65 (82) 100 06/12/20 00:00 4.0 06/12/20 00:00 Nasal Cannula 4.0 Nasal Cannula 4.0 06/12/20 00:00 77 06/11/20 21:59 81 06/11/20 21:00 84 21 111/64 (80) 100 06/11/20 20:00 4.0 06/11/20 20:00 96 06/11/20 20:00 98.3 88 21 106/63 (77) 100 06/11/20 20:00 Nasal Cannula 4.0 Nasal Cannula 4.0 06/11/20 19:00 97 22 130/74 (92) 99 06/11/20 18:00 90 23 132/77 (95) 100 06/11/20 17:00 86 20 124/71 (88) 100 Intake and Output 06/11/20 06/12/20 19:00 07:00 Intake Total 1185 ml 824 ml Output Total 948 ml 1020 ml Balance 237 ml -196 ml Intake Oral 450 ml 220 ml IV Total 655 ml 604 ml Tube Feeding 80 ml Output Urine Total 405 ml 450 ml Chest Tube Drainage Total 543 ml 570 ml # Bowel Movements 1 Laboratory Tests 06/11/20 17:07: POC Whole Blood Glucose [Pending] 06/12/20 05:26: POC Whole Blood Glucose 128H 06/12/20 11:41: POC Whole Blood Glucose 214H 06/12/20 12:20: White Blood Count 19.0H, Red Blood Count 4.60, Hemoglobin 12.9, Hematocrit 39.3, Mean Corpuscular Volume 85, Mean Corpuscular Hemoglobin 28.0, Mean Corpuscular Hemoglobin Concent 32.7, Red Cell Distribution Width 14.8, Platelet Count 305, Mean Platelet Volume 6.6, Neutrophils (%) (Auto) , Lymphocytes (%) (Auto) , Monocytes (%) (Auto) , Eosinophils (%) (Auto) , Basophils (%) (Auto) , Di fferential Total Cells Counted 100, Neutrophils % (Manual) 95H, Lymphocytes % (Manual) 3L, Monocytes % (Manual) 2, Eosinophils % (Manual) 0, Basophils % (Manual) 0, Band Neutrophils 0, Platelet Estimate Adequate, Platelet Morphology Normal, Anisocytosis 1+ Height (Feet): 5 Height (Inches): 0.00 Weight (Pounds): 111 Objective NCAT, supple Coarse BS, (+) Chest tubes RR abd soft no edema Assessment/Plan Status: progressing Assessment/Plan: Assessment - Respiratory failure- improved - pleural effusions, s/p thoracentesis - Renal failure - resolved - Elevated troponin - HTN - CML Recommendations - Pulmonary management - Elevate HOB - po diet as tolerated - follow labs and exam - I will return to see pt Antonio Kay MD Jun 12, 2020 16:06
[2020-06-12 20:00] VITALS: BP 92/63
--- NOTE | 2020-06-12 20:05 | General Progress Note ---
Subjective ROS Limited/Unobtainable: Yes Allergies: Coded Allergies: No Known Allergies (Unverified , 05/19/20) Objective Last 24 Hour Vital Signs Date Time Temp Pulse Resp B/P (MAP) Pulse Ox O2 Delivery O2 Flow Rate FiO2 06/12/20 16:00 4.0 06/12/20 16:00 98.1 86 24 113/71 (85) 97 06/12/20 16:00 Nasal Cannula 4.0 Nasal Cannula 4.0 06/12/20 15:59 86 06/12/20 12:00 89 06/12/20 12:00 Nasal Cannula 4.0 Nasal Cannula 4.0 06/12/20 12:00 4.0 06/12/20 11:49 97.7 84 22 142/77 (98) 96 06/12/20 08:00 89 06/12/20 08:00 Nasal Cannula 4.0 Nasal Cannula 4.0 06/12/20 08:00 97.5 85 19 134/74 (94) 97 06/12/20 08:00 4.0 06/12/20 04:00 97.7 85 21 123/72 (89) 100 06/12/20 04:00 4.0 06/12/20 04:00 Nasal Cannula 4.0 Nasal Cannula 4.0 06/12/20 03:49 84 06/12/20 00:00 97.7 79 21 115/65 (82) 100 06/12/20 00:00 4.0 06/12/20 00:00 Nasal Cannula 4.0 Nasal Cannula 4.0 06/12/20 00:00 77 06/11/20 21:59 81 06/11/20 21:00 84 21 111/64 (80) 100 Intake and Output 06/11/20 06/12/20 19:00 07:00 Intake Total 1185 ml 824 ml Output Total 948 ml 1020 ml Balance 237 ml -196 ml Intake Oral 450 ml 220 ml IV Total 655 ml 604 ml Tube Feeding 80 ml Output Urine Total 405 ml 450 ml Chest Tube Drainage Total 543 ml 570 ml # Bowel Movements 1 Laboratory Tests 06/12/20 05:26: POC Whole Blood Glucose 128H 06/12/20 11:41: POC Whole Blood Glucose 214H 06/12/20 12:20: White Blood Count 19.0H, Red Blood Count 4.60, Hemoglobin 12.9, Hematocrit 39.3, Mean Corpuscular Volume 85, Mean Corpuscular Hemoglobin 28.0, Mean Corpuscular Hemoglobin Concent 32.7, Red Cell Distribution Width 14.8, Platelet Count 305, Mean Platelet Volume 6.6, Neutrophils (%) (Auto) , Lymphocytes (%) (Auto) , Monocytes (%) (Auto) , Eosinophils (%) (Auto) , Basophils (%) (Auto) , Differential Total Cells Counted 100, Neutrophils % (Manual) 95H, Lymphocytes % (Manual) 3L, Monocytes % (Manual) 2, Eosinophils % (Manual) 0, Basophils % (Manual) 0, Band Neutrophils 0, Platelet Estimate Adequate, Platelet Morphology Normal, Anisocytosis 1+ Height (Feet): 5 Height (Inches): 0.00 Weight (Pounds): 111 Cardiovascular: normal rate Assessment/Plan Problem List: (1) Leukemia ICD Codes: C95.90 - Leukemia, unspecified not having achieved remission SNOMED: 50738659 (2) Bilateral pleural effusion ICD Codes: J90 - Pleural effusion, not elsewhere classified SNOMED: 168087889 Status: progressing Assessment/Plan: extubated s/p chest tube prn oxygen s/p thoracocentesis for recurrent pleural effusion Tiara Jara MD Jun 12, 2020 20:05
--- NOTE | 2020-06-12 23:32 | Psych Consult Progress Note ---
Psychiatry Progress Note Psychiatry Progress Note Subjective sleeping better less anxious the pt is doing well Medications Current Medications Medications (Trade) Dose Ordered Sig/Jennie Route PRN Reason Start Time Stop Time Status Last Admin Dose Admin Acetaminophen (Tylenol) 500 mg Q6H PRN ORAL Mild Pain (Pain Scale 1-3) 05/19/20 16:45 06/18/20 16:44 Acetaminophen/ Hydrocodone Bitart ([place] 10/325) 1 tab Q4H PRN ORAL Pain Scale (6-10) 06/09/20 11:00 06/16/20 10:59 Acetaminophen/ Hydrocodone Bitart ([place] 5/325) 1 tab Q4H PRN ORAL Moderate Pain (Pain Scale 4-6) 06/09/20 11:00 06/16/20 10:59 Allopurinol (allopurinoL) 300 mg DAILY ORAL 06/06/20 11:00 07/06/20 10:59 06/12/20 09:34 Barium Sulfate (Varibar Honey) 250 ml NOW PRN MC RAD 06/11/20 10:15 06/14/20 10:05 Barium Sulfate (Varibar Sorrel) 240 ml NOW PRN MC RAD 06/11/20 10:15 06/14/20 10:05 Barium Sulfate (Varibar Pudding) 230 ml NOW PRN MC RAD 06/11/20 10:15 06/14/20 10:05 Barium Sulfate (Varibar Thin Liquid powder) 148 gm NOW PRN MC RAD 06/11/20 10:15 06/14/20 10:05 Cefepime HCl 1 gm/ Dextrose 55 ml @ 110 mls/hr EVERY 12 HOURS IVPB 06/09/20 10:45 06/16/20 10:44 06/12/20 21:19 Clonidine HCl (Catapres Tab) 0.1 mg Q4H PRN ORAL SBP > 170 05/24/20 13:15 08/22/20 13:14 Dexamethasone Sodium Phosphate (Decadron 4mg/ml vial) 4 mg DAILY IVP 06/07/20 12:30 09/05/20 12:29 06/12/20 09:33 Dextrose (Dextrose 50%) 25 ml Q30M PRN IV Hypoglycemia 06/10/20 06:45 09/08/20 06:44 Dextrose (Dextrose 50%) 50 ml Q30M PRN IV Hypoglycemia 06/10/20 06:45 09/08/20 06:44 Docusate Sodium (Colace) 100 mg TWICE A DAY ORAL 05/22/20 18:00 06/21/20 17:59 06/12/20 17:25 Enoxaparin Sodium (Lovenox) 40 mg DAILY SUBQ 06/02/20 09:00 08/31/20 08:59 06/12/20 09:36 Insulin Aspart (NovoLOG) BEFORE MEALS AND HS SUBQ 06/05/20 06:30 09/03/20 06:29 06/12/20 21:25 Mirtazapine (Remeron) 7.5 mg BEDTIME ORAL 06/02/20 21:00 08/31/20 20:59 06/12/20 21:18 Morphine Sulfate (Morphine Sulfate) 2 mg Q4H PRN IVP Severe Pain (Pain Scale 7-10) 06/09/20 11:00 06/16/20 10:59 Pantoprazole (Protonix) 40 mg DAILY IVP 06/08/20 09:00 07/08/20 08:59 06/12/20 09:32 Sodium Chloride 500 ml @ 999 mls/hr Q31M PRN IV For hypotension 06/09/20 17:00 07/09/20 16:59 06/09/20 21:08 Neurological/Psychiatric: Denies: no symptoms, anxiety, depressed, emotional pr oblems, headache, numbness, paresthesia, pre-existing deficit, seizure, tingling, tremors, weakness, other Allergies: Coded Allergies: No Known Allergies (Unverified , 05/19/20) Objective Data Height (Feet): 5 Height (Inches): 0.00 Weight (Pounds): 111 General Appearance: WD/WN, no apparent distress, alert, alert oriented x3 Additional Comments: alert and oriented times self, place, and situation. Mood is anxious. Affect is blunted, congruent with mood. Thought process is concrete. Thought content, there is no suicidal or homicidal ideation. Cognition is intact. Insight and judgment are fair. ASSESSMENT: Wanda I Anxiety disorder. Insomnia. Wanda II Deferred. Wanda III As above. Wanda IV Low. Wanda V 50. PLAN: 1. Remeron 7.5 mg at bedtime. 2. Provide the patient with reality orientation and supportive therapy. Assessment/Plan Wanda I: Wanda I Anxiety disorder. Insomnia. Wanda II Deferred. Wanda III As above. Wanda IV Low. Wanda V 50. PLAN: 1. Remeron 7.5 mg at bedtime. 2. Provide the patient with reality orientation and supportive therapy. Status: progressing Status Narrative Wanda I Anxiety disorder. Insomnia. Wanda II Deferred. Wanda III As above. Wanda IV Low. Wanda V 50. PLAN: 1. Remeron 7.5 mg at bedtime. 2. Provide the patient with reality orientation and supportive therapy. Assessment/Plan: Wanda I Anxiety disorder. Insomnia. Wanda II Deferred. Wanda III As above. Wanda IV Low. Wanda V 50. PLAN: 1. Remeron 7.5 mg at bedtime. 2. Provide the patient with reality orientation and supportive therapy. Anahy Avendano MD Jun 12, 2020 23:32
[2020-06-13] VITALS: BP 107/74
[2020-06-13 04:00] VITALS: BP 152/75
[2020-06-13] MEDS: NovoLOG Insulin Flexpen SUBQ SCH ×4 (06:30→21:00)
[2020-06-13 07:10] LABS: HEMOGLOBIN 11.7 G/DL (12.0-16.0); MEAN CORPUSCULAR VOLUME 83 FL (80-99); PLATELET COUNT 245 K/UL (150-450); RED BLOOD COUNT 4.11 M/UL (4.20-5.40); RED CELL DISTRIBUTION WIDTH 14.1 % (11.6-14.8); WHITE BLOOD COUNT 11.2 K/UL (4.8-10.8)
[2020-06-13 07:32] LABS: ALANINE AMINOTRANSFERASE 11 U/L (12-78); ALBUMIN 1.6 G/DL (3.4-5.0); ALBUMIN/GLOBULIN RATIO 0.6 (1.0-2.7); ALKALINE PHOSPHATASE 85 U/L (46-116); ANION GAP 4 mmol/L (5-15); ASPARTATE AMINO TRANSFERASE 26 U/L (15-37); BILIRUBIN,TOTAL 0.3 MG/DL (0.2-1.0); BLOOD UREA NITROGEN 39 mg/dL (7-18); CALCIUM 7.6 MG/DL (8.5-10.1); CARBON DIOXIDE 29 MMOL/L (21-32); CHLORIDE 103 MMOL/L (98-107); CREATININE 0.8 MG/DL (0.55-1.30); PHOSPHORUS 2.5 MG/DL (2.5-4.9); POTASSIUM 4.2 MMOL/L (3.5-5.1); SODIUM 136 MMOL/L (136-145)
--- NOTE | 2020-06-13 07:32 | General Progress Note ---
Subjective ROS Limited/Unobtainable: No Allergies: Coded Allergies: No Known Allergies (Unverified , 05/19/20) Objective Last 24 Hour Vital Signs Date Time Temp Pulse Resp B/P (MAP) Pulse Ox O2 Delivery O2 Flow Rate FiO2 06/13/20 04:00 79 06/13/20 04:00 97.0 89 20 152/75 (100) 100 06/13/20 04:00 Nasal Cannula 4.0 Nasal Cannula 4.0 06/13/20 04:00 4.0 06/13/20 00:00 90 06/13/20 00:00 4.0 06/13/20 00:00 Nasal Cannula 4.0 Nasal Cannula 4.0 06/13/20 00:00 97.7 85 20 107/74 (85) 99 06/12/20 20:00 4.0 06/12/20 20:00 90 06/12/20 20:00 Nasal Cannula 4.0 Nasal Cannula 4.0 06/12/20 20:00 97.9 90 20 92/63 (73) 98 06/12/20 16:00 4.0 06/12/20 16:00 98.1 86 24 113/71 (85) 97 06/12/20 16:00 Nasal Cannula 4.0 Nasal Cannula 4.0 06/12/20 15:59 86 06/12/20 12:00 89 06/12/20 12:00 Nasal Cannula 4.0 Nasal Cannula 4.0 06/12/20 12:00 4.0 06/12/20 11:49 97.7 84 22 142/77 (98) 96 06/12/20 08:00 89 06/12/20 08:00 Nasal Cannula 4.0 Nasal Cannula 4.0 06/12/20 08:00 97.5 85 19 134/74 (94) 97 06/12/20 08:00 4.0 Intake and Output 06/12/20 06/13/20 19:00 07:00 Intake Total 1240 ml 240 ml Output Total 250 ml Balance 990 ml 240 ml Intake Oral 1240 ml 240 ml Output Urine Total 250 ml # Voids 1 1 Laboratory Tests 06/12/20 11:41: POC Whole Blood Glucose 214H 06/12/20 12:20: White Blood Count 19.0H, Red Blood Count 4.60, Hemoglobin 12.9, Hematocrit 39.3, Mean Corpuscular Volume 85, Mean Corpuscular Hemoglobin 28.0, Mean Corpuscular Hemoglobin Concent 32.7, Red Cell Distribution Width 14.8, Platelet Count 305, Mean Platelet Volume 6.6, Neutrophils (%) (Auto) , Lymphocytes (%) (Auto) , Monocytes (%) (Auto) , Eosinophils (%) (Auto) , Basophils (%) (Auto) , Differential Total Cells Counted 100, Neutrophils % (Manual) 95H, Lymphocytes % (Manual) 3L, Monocytes % (Manual) 2, Eosinophils % (Manual) 0, Basophils % (Manual) 0, Band Neutrophils 0, Platelet Estimate Adequate, Platelet Morphology Normal, Anisocytosis 1+ 06/13/20 05:45: White Blood Count 11.2H, Red Blood Count 4.11L, Hemoglobin 11.7L, Hematocrit 34.0L, Mean Corpuscular Volume 83, Mean Corpuscular Hemoglobin 28.4, Mean Corpuscular Hemoglobin Concent 34.3, Red Cell Distribution Width 14.1, Platelet Count 245, Mean Platelet Volume 6.4L, Neutrophils (%) (Auto) , Lymphocytes (%) (Auto) , Monocytes (%) (Auto) , Eosinophils (%) (Auto) , Basophils (%) (Auto) , Neutrophils % (Manual) [Pending], Lymphocytes % (Manual) [Pending], Platelet Estimate [Pending], Platelet Morphology [Pending], Sodium Level [Pending], Potassium Level [Pending], Chloride Level [Pending], Carbon Dioxide Level [Pending], Blood Urea Nitrogen [Pending], Creatinine [Pending], Estimat Glomerular Filtration Rate [Pending], Glucose Level [Pending], Calcium Level [Pending], Phosphorus Level [Pending], Magnesium Level [Pending], Total Bilirubin [Pending], Aspartate Amino Transf (AST/SGOT) [Pending], Alanine Aminotransferase (ALT/SGPT) [Pending], Alkaline Phosphatase [Pending], C- Reactive Protein, Quantitative [Pending], Pro-B-Type Natriuretic Peptide [Pending], Total Protein [Pending], Albumin [Pending], Globulin [Pending] Height (Feet): 5 Height (Inches): 0.00 Weight (Pounds): 111 General Appearance: no apparent distress EENT: normal ENT inspection Neck: supple Cardiovascular: normal rate Respiratory/Chest: decreased breath sounds Abdomen: hypoactive bowel sounds Extremities: non-tender Assessment/Plan Status: progressing Assessment/Plan: Assessment/Plan Status: progressing Assessment/Plan: Assessment - Respiratory failure- improved - pleural effusions, s/p thoracentesis - Renal failure - resolved - Elevated troponin - HTN - CML Recommendations - Pulmonary management - Elevate HOB - po diet as tolerated - follow labs and exam Carlos Awad MD Jun 13, 2020 07:32
[2020-06-13 08:00] VITALS: BP 93/57
[2020-06-13] MEDS: Pantoprazole Inj IVP SCH (09:15)
[2020-06-13] MEDS: Docusate 100mg cap ORAL SCH ×2 (09:16→16:59)
[2020-06-13] MEDS: Cefepime HCl 1 GM in D5W 55 ML IVPB SCH ×2 (09:16→20:50)
--- NOTE | 2020-06-13 09:17 | Diagnostic Imaging Report ---
EXAM: XR Chest, 1 View CLINICAL HISTORY: ABN CHST TECHNIQUE: Frontal view of the chest. COMPARISON: Chest radiograph June 12, 2020 FINDINGS/IMPRESSION: Small left pleural effusion with indwelling chest tube. The effusion has mildly increased, when compared to chest radiograph June 12, 2020. No pneumothorax. Trace right pleural effusion. Cardiomegaly. Calcified aorta.
[2020-06-13] MEDS: Enoxaparin 40mg Inj SUBQ SCH (09:21)
[2020-06-13 11:58] VITALS: BP 115/75
--- NOTE | 2020-06-13 12:09 | Nephrology Progress Note ---
Assessment/Plan Problem List: (1) ASHLEY (acute kidney injury) (2) Bilateral pleural effusion (3) Leukemia Assessment Imp: Acute renal failure, with sudden jump in serum creatinine to 2.7 History of leukemia Hypertension, now hypotensive Hyponatremia on admission, improved Bilateral pleural effusion. Status post paracentesis. Elevated troponin, most likely leak. Plan June 13: Labs reviewed. Renal parameters stable. Remains on nasal cannula. Continue per pulmonary. June 12: Now in [facility]. Discussed with RN. No chemistry panel done today. On nasal cannula. Daughter in room present. Chest tubes present. Below are the lab for tomorrow. Continue per consultants. June 11: Seen in ICU. Discussed with RN. Patient was extubated. On nasal cannula. Bilateral chest tubes still in. Labs reviewed. Renal parameters improved. Electrolytes within normal limit. Continue per current management. June 10: Patient remains in ICU. Has chest tubes on the left and on the right. Remains intubated on ventilator. Due for weaning today. Labs reviewed. BUN and creatinine marli. Will change the IV to normal saline 50 cc an hour. Will discontinue Zaroxolyn. We will continue to monitor renal parameters and electrolytes. Continue per consultants. June 09: Patient now in ICU postop. Has bilateral chest tube. Intubated on ventilator. Today's labs reviewed. Continue per consultants. Continue to monitor renal parameters. June 08: Status quo. Continues on BiPAP. Due for VATS tomorrow. Start midodrine for low blood pressure. June 06: Status unchanged. Labs reviewed. Renal parameters stable. Continue per consultants. Remains full code. Remains on BiPAP. June 05: Electrolytes now normalized. Discussed with RN. Patient due for VATS surgery early next week. Continue current pulmonary support and monitor renal parameters. June 04: Potassium low. Creatinine higher. Will discontinue IV Lasix as the patient already on metolazone. Potassium supplement ordered. 250 mL of 3% saline ordered. Continue to monitor electrolytes and renal parameters. Continue per consultants. June 03: Discussed with Dr. Olson. Patient's pleural effusions continue to be a challenge. Patient on diuretics. Will watch renal parameters and electrolytes. Patient was already tapped twice. Continue per current managem ent. June 02: No chemistry panel done today. Status unchanged. Remains on nonrebreathing mask. Will check lab tomorrow. Continue per pulmonary. June 01: Labs reviewed. Status unchanged. Remains on nonrebreathing mask. Will increase his Lasix to 40 twice daily. Stable electrolytes and renal parameters at this time. May 31: No chemistry panel done today. Patient still on nonrebreathing mask. Patient full code. Will check lab tomorrow. Patient's main issue is respiratory. May 30: Labs reviewed. Renal parameters stable. Continue per pulmonary. May 29: No chemistry panel done today. Remains on nonrebreather mask. Will order labs tomorrow. Continue per consultants. May 28: Serum creatinine up to 1.5. Remains on nonrebreather mask. Since admission had 3 thoracenteses for pleural effusion over the left and right. Respiratory status remains unstable. Continue per pulmonary. Will watch renal parameters. May 27: When seen the patient was on 100% nonrebreather mask. Renal panel within normal limit. Continue per consultants. Main problem remains respiratory. May 26: Renal parameters stable. Started on Lasix 40 mg daily. Continue to monitor renal parameters and electrolytes. Continue per consultants. May 25: Renal parameters within normal limit. Another dose of IV Lasix given. Continue to monitor electrolytes. Continue per consultants. May 24: Renal parameters normalized. Will give the Lasix 40 mg IV once. 1 dose of Kayexalate for hyperkalemia. Continue to monitor renal parameters. Previously: Today renal parameters are improved. Serum creatinine down to 1.6 from 2.7 Continue to hold lisinopril Continue to hold Lasix Half Normal saline 100 cc an hour one liter only was given yesterday Albumin bolus given yesterday, repeat as needed Monitor renal parameters Avoid nephrotoxic's Subjective ROS Limited/Unobtainable: No Constitutional: Reports: malaise Objective Objective Last 24 Hour Vital Signs Date Time Temp Pulse Resp B/P (MAP) Pulse Ox O2 Delivery O2 Flow Rate FiO2 06/13/20 11:58 97.1 98 15 115/75 (88) 96 06/13/20 08:00 92 06/13/20 08:00 Nasal Cannula 4.0 Nasal Cannula 4.0 06/13/20 08:00 97.0 86 15 93/57 (69) 100 06/13/20 08:00 4.0 06/13/20 04:00 79 06/13/20 04:00 97.0 89 20 152/75 (100) 100 06/13/20 04:00 Nasal Cannula 4.0 Nasal Cannula 4.0 06/13/20 04:00 4.0 06/13/20 00:00 90 06/13/20 00:00 4.0 06/13/20 00:00 Nasal Cannula 4.0 Nasal Cannula 4.0 06/13/20 00:00 97.7 85 20 107/74 (85) 99 06/12/20 20:00 4.0 06/12/20 20:00 90 06/12/20 20:00 Nasal Cannula 4.0 Nasal Cannula 4.0 06/12/20 20:00 97.9 90 20 92/63 (73) 98 06/12/20 16:00 4.0 06/12/20 16:00 98.1 86 24 113/71 (85) 97 06/12/20 16:00 Nasal Cannula 4.0 Nasal Cannula 4.0 06/12/20 15:59 86 Intake and Output 06/12/20 06/13/20 19:00 07:00 Intake Total 1240 ml 240 ml Output Total 250 ml Balance 990 ml 240 ml Intake Oral 1240 ml 240 ml Output Urine Total 250 ml # Voids 1 1 Laboratory Tests 06/12/20 12:20: White Blood Count 19.0H, Red Blood Count 4.60, Hemoglobin 12.9, Hematocrit 39.3, Mean Corpuscular Volume 85, Mean Corpuscular Hemoglobin 28.0, Mean Corpuscular Hemoglobin Concent 32.7, Red Cell Distribution Width 14.8, Platelet Count 305, Mean Platelet Volume 6.6, Neutrophils (%) (Auto) , Lymphocytes (%) (Auto) , Monocytes (%) (Auto) , Eosinophils (%) (Auto) , Basophils (%) (Auto) , Differential Total Cells Counted 100, Neutrophils % (Manual) 95H, Lymphocytes % (Manual) 3L, Monocytes % (Manual) 2, Eosinophils % (Manual) 0, Basophils % (Manual) 0, Band Neutrophils 0, Platelet Estimate Adequate, Platelet Morphology Normal, Anisocytosis 1+ 06/13/20 05:45: White Blood Count 11.2H, Red Blood Count 4.11L, Hemoglobin 11.7L, Hematocrit 34.0L, Mean Corpuscular Volume 83, Mean Corpuscular Hemoglobin 28.4, Mean Corpuscular Hemoglobin Concent 34.3, Red Cell Distribution Width 14.1, Platelet Count 245, Mean Platelet Volume 6.4L, Neutrophils (%) (Auto) , Lymphocytes (%) (Auto) , Monocytes (%) (Auto) , Eosinophils (%) (Auto) , Basophils (%) (Auto) , Differential Total Cells Counted 100, Neutrophils % (Manual) 88H, Lymphocytes % (Manual) 7L, Monocytes % (Manual) 5, Eosinophils % (Manual) 0, Basophils % (Manual) 0, Band Neutrophils 0, Platelet Estimate Adequate, Platelet Morphology Normal, Anisocytosis 1+, Hypochromasia 1+, Sodium Level 136, Potassium Level 4.2, Chloride Level 103, Carbon Dioxide Level 29, Anion Gap 4L, Blood Urea Nitrogen 39H, Creatinine 0.8, Estimat Glomerular Filtration Rate > 60, Glucose Level 129H, Calcium Level 7.6L, Phosphorus Level 2.5, Magnesium Level 2.3, Total Bilirubin 0.3, Aspartate Amino Transf (AST/SGOT) 26, Alanine Aminotransferase (ALT/SGPT) 11L, Alkaline Phosphatase 85, C-Reactive Protein, Quantitative 1.4H, Pro-B-Type Natriuretic Peptide 61856F, Total Protein 4.4L, Albumin 1.6L, Globulin 2.8, Albumin/Globulin Ratio 0.6L 06/13/20 11:47: POC Whole Blood Glucose 219H Height (Feet): 5 Height (Inches): 0.00 Weight (Pounds): 111 General Appearance: no apparent distress EENT: other - On nasal cannula Cardiovascular: tachycardia Respiratory/Chest: other - Has chest tubes Abdomen: soft, distended Objective No change Montrell Carpio MD Jun 13, 2020 12:09
--- NOTE | 2020-06-13 14:30 | General Progress Note ---
Assessment/Plan Status: progressing Assessment/Plan: Will cap bilateral pleurex.today Family bedside teaching scheduled 06/15/20 at 10 am. Followup on final pathology Subjective Date patient seen: Jun 13, 2020 Allergies: Coded Allergies: No Known Allergies (Unverified , 05/19/20) Subjective No complaints Objective Last 24 Hour Vital Signs Date Time Temp Pulse Resp B/P (MAP) Pulse Ox O2 Delivery O2 Flow Rate FiO2 06/13/20 12:00 Nasal Cannula 4.0 Nasal Cannula 4.0 06/13/20 12:00 78 06/13/20 11:58 97.1 98 15 115/75 (88) 96 06/13/20 08:00 92 06/13/20 08:00 Nasal Cannula 4.0 Nasal Cannula 4.0 06/13/20 08:00 97.0 86 15 93/57 (69) 100 06/13/20 08:00 4.0 06/13/20 04:00 79 06/13/20 04:00 97.0 89 20 152/75 (100) 100 06/13/20 04:00 Nasal Cannula 4.0 Nasal Cannula 4.0 06/13/20 04:00 4.0 06/13/20 00:00 90 06/13/20 00:00 4.0 06/13/20 00:00 Nasal Cannula 4.0 Nasal Cannula 4.0 06/13/20 00:00 97.7 85 20 107/74 (85) 99 06/12/20 20:00 4.0 06/12/20 20:00 90 06/12/20 20:00 Nasal Cannula 4.0 Nasal Cannula 4.0 06/12/20 20:00 97.9 90 20 92/63 (73) 98 06/12/20 16:00 4.0 06/12/20 16:00 98.1 86 24 113/71 (85) 97 06/12/20 16:00 Nasal Cannula 4.0 Nasal Cannula 4.0 06/12/20 15:59 86 Intake and Output 06/12/20 06/13/20 19:00 07:00 Intake Total 1240 ml 240 ml Output Total 250 ml Balance 990 ml 240 ml Intake Oral 1240 ml 240 ml Output Urine Total 250 ml # Voids 1 1 Laboratory Tests 06/13/20 05:45: White Blood Count 11.2H, Red Blood Count 4.11L, Hemoglobin 11.7L, Hematocrit 34.0L, Mean Corpuscular Volume 83, Mean Corpuscular Hemoglobin 28.4, Mean Corpuscular Hemoglobin Concent 34.3, Red Cell Distribution Width 14.1, Platelet Count 245, Mean Platelet Volume 6.4L, Neutrophils (%) (Auto) , Lymphocytes (%) (Auto) , Monocytes (%) (Auto) , Eosinophils (%) (Auto) , Basophils (%) (Auto) , Differential Total Cells Counted 100, Neutrophils % (Manual) 88H, Lymphocytes % (Manual) 7L, Monocytes % (Manual) 5, Eosinophils % (Manual) 0, Basophils % (Man ual) 0, Band Neutrophils 0, Platelet Estimate Adequate, Platelet Morphology Normal, Hypochromasia 1+, Anisocytosis 1+, Sodium Level 136, Potassium Level 4.2, Chloride Level 103, Carbon Dioxide Level 29, Anion Gap 4L, Blood Urea Nitrogen 39H, Creatinine 0.8, Estimat Glomerular Filtration Rate > 60, Glucose Level 129H, Calcium Level 7.6L, Phosphorus Level 2.5, Magnesium Level 2.3, Total Bilirubin 0.3, Aspartate Amino Transf (AST/SGOT) 26, Alanine Aminotransferase (ALT/SGPT) 11L, Alkaline Phosphatase 85, C-Reactive Protein, Quantitative 1.4H, Pro-B-Type Natriuretic Peptide 21040T, Total Protein 4.4L, Albumin 1.6L, Globulin 2.8, Albumin/Globulin Ratio 0.6L 06/13/20 11:47: POC Whole Blood Glucose 219H Height (Feet): 5 Height (Inches): 0.00 Weight (Pounds): 111 Myron Joseph MD Jun 13, 2020 14:30
--- NOTE | 2020-06-13 14:33 | General Progress Note ---
Subjective Allergies: Coded Allergies: No Known Allergies (Unverified , 05/19/20) All Systems: reviewed and negative except above Subjective events noted interval notes reviewed glucose values in fair control Item Value Date Time Bedside Blood Glucose 219 mg/dl H 06/13/20 1157 Bedside Blood Glucose 125 mg/dl H 06/13/20 0630 Bedside Blood Glucose 171 mg/dl H 06/12/20 2125 Bedside Blood Glucose 282 mg/dl H 06/12/20 1649 Bedside Blood Glucose 214 mg/dl H 06/12/20 1148 Objective Last 24 Hour Vital Signs Date Time Temp Pulse Resp B/P (MAP) Pulse Ox O2 Delivery O2 Flow Rate FiO2 06/13/20 12:00 Nasal Cannula 4.0 Nasal Cannula 4.0 06/13/20 12:00 78 06/13/20 11:58 97.1 98 15 115/75 (88) 96 06/13/20 08:00 92 06/13/20 08:00 Nasal Cannula 4.0 Nasal Cannula 4.0 06/13/20 08:00 97.0 86 15 93/57 (69) 100 06/13/20 08:00 4.0 06/13/20 04:00 79 06/13/20 04:00 97.0 89 20 152/75 (100) 100 06/13/20 04:00 Nasal Cannula 4.0 Nasal Cannula 4.0 06/13/20 04:00 4.0 06/13/20 00:00 90 06/13/20 00:00 4.0 06/13/20 00:00 Nasal Cannula 4.0 Nasal Cannula 4.0 06/13/20 00:00 97.7 85 20 107/74 (85) 99 06/12/20 20:00 4.0 06/12/20 20:00 90 06/12/20 20:00 Nasal Cannula 4.0 Nasal Cannula 4.0 06/12/20 20:00 97.9 90 20 92/63 (73) 98 06/12/20 16:00 4.0 06/12/20 16:00 98.1 86 24 113/71 (85) 97 06/12/20 16:00 Nasal Cannula 4.0 Nasal Cannula 4.0 06/12/20 15:59 86 Intake and Output 06/12/20 06/13/20 19:00 07:00 Intake Total 1240 ml 240 ml Output Total 250 ml Balance 990 ml 240 ml Intake Oral 1240 ml 240 ml Output Urine Total 250 ml # Voids 1 1 Laboratory Tests 06/13/20 05:45: White Blood Count 11.2H, Red Blood Count 4.11L, Hemoglobin 11.7L, Hematocrit 34.0L, Mean Corpuscular Volume 83, Mean Corpuscular Hemoglobin 28.4, Mean Corpuscular Hemoglobin Concent 34.3, Red Cell Distribution Width 14.1, Platelet Count 245, Mean Platelet Volume 6.4L, Neutrophils (%) (Auto) , Lymphocytes (%) (Auto) , Monocytes (%) (Auto) , Eosinophils (%) (Auto) , Basophils (%) (Auto) , Differential Total Cells Counted 100, Neutrophils % (Manual) 88H, Lymphocytes % (Manual) 7L, Monocytes % (Manual) 5, Eosinophils % (Manual) 0, Basophils % (Manu al) 0, Band Neutrophils 0, Platelet Estimate Adequate, Platelet Morphology Normal, Hypochromasia 1+, Anisocytosis 1+, Sodium Level 136, Potassium Level 4.2, Chloride Level 103, Carbon Dioxide Level 29, Anion Gap 4L, Blood Urea Nitrogen 39H, Creatinine 0.8, Estimat Glomerular Filtration Rate > 60, Glucose Level 129H, Calcium Level 7.6L, Phosphorus Level 2.5, Magnesium Level 2.3, Total Bilirubin 0.3, Aspartate Amino Transf (AST/SGOT) 26, Alanine Aminotransferase (ALT/SGPT) 11L, Alkaline Phosphatase 85, C-Reactive Protein, Quantitative 1.4H, Pro-B-Type Natriuretic Peptide 52466O, Total Protein 4.4L, Albumin 1.6L, Globulin 2.8, Albumin/Globulin Ratio 0.6L 06/13/20 11:47: POC Whole Blood Glucose 219H Height (Feet): 5 Height (Inches): 0.00 Weight (Pounds): 111 General Appearance: no apparent distress Neck: normal alignment Cardiovascular: normal rate Respiratory/Chest: decreased breath sounds Abdomen: normal bowel sounds Objective Current Medications Medications (Trade) Dose Ordered Sig/Jennie Route PRN Reason Start Time Stop Time Status Last Admin Dose Admin Acetaminophen (Tylenol) 500 mg Q6H PRN ORAL Mild Pain (Pain Scale 1-3) 05/19/20 16:45 06/18/20 16:44 Acetaminophen/ Hydrocodone Bitart ([place] 10/325) 1 tab Q4H PRN ORAL Pain Scale (6-10) 06/09/20 11:00 06/16/20 10:59 Acetaminophen/ Hydrocodone Bitart ([place] 5/325) 1 tab Q4H PRN ORAL Moderate Pain (Pain Scale 4-6) 06/09/20 11:00 06/16/20 10:59 Allopurinol (allopurinoL) 300 mg DAILY ORAL 06/06/20 11:00 07/06/20 10:59 06/13/20 09:16 Barium Sulfate (Varibar Honey) 250 ml NOW PRN MC RAD 06/11/20 10:15 06/14/20 10:05 Barium Sulfate (Varibar [place]) 240 ml NOW PRN MC RAD 06/11/20 10:15 06/14/20 10:05 Barium Sulfate (Varibar Pudding) 230 ml NOW PRN MC RAD 06/11/20 10:15 06/14/20 10:05 Barium Sulfate (Varibar Thin Liquid powder) 148 gm NOW PRN MC RAD 06/11/20 10:15 06/14/20 10:05 Cefepime HCl 1 gm/ Dextrose 55 ml @ 110 mls/hr EVERY 12 HOURS IVPB 06/09/20 10:45 06/16/20 10:44 06/13/20 09:16 Clonidine HCl (Catapres Tab) 0.1 mg Q4H PRN ORAL SBP > 170 05/24/20 13:15 08/22/20 13:14 Dexamethasone Sodium Phosphate (Decadron 4mg/ml vial) 4 mg DAILY IVP 06/07/20 12:30 09/05/20 12:29 06/13/20 09:16 Dextrose (Dextrose 50%) 25 ml Q30M PRN IV Hypoglycemia 06/10/20 06:45 09/08/20 06:44 Dextrose (Dextrose 50%) 50 ml Q30M PRN IV Hypoglycemia 06/10/20 06:45 09/08/20 06:44 Docusate Sodium (Colace) 100 mg TWICE A DAY ORAL 05/22/20 18:00 06/21/20 17:59 06/13/20 09:16 Enoxaparin Sodium (Lovenox) 40 mg DAILY SUBQ 06/02/20 09:00 08/31/20 08:59 06/13/20 09:21 Insulin Aspart (NovoLOG) BEFORE MEALS AND HS SUBQ 06/05/20 06:30 09/03/20 06:29 06/13/20 11:55 Mirtazapine (Remeron) 7.5 mg BEDTIME ORAL 06/02/20 21:00 08/31/20 20:59 06/12/20 21:18 Morphine Sulfate (Morphine Sulfate) 2 mg Q4H PRN IVP Severe Pain (Pain Scale 7-10) 06/09/20 11:00 06/16/20 10:59 Pantoprazole (Protonix) 40 mg DAILY IVP 06/08/20 09:00 07/08/20 08:59 06/13/20 09:15 Sodium Chloride 500 ml @ 999 mls/hr Q31M PRN IV For hypotension 06/09/20 17:00 07/09/20 16:59 06/09/20 21:08 Assessment/Plan Problem List: (1) Hypoglycemia ICD Codes: E16.2 - Hypoglycemia, unspecified SNOMED: 837460599 (2) Steroid-induced hyperglycemia ICD Codes: R73.9 - Hyperglycemia, unspecified; T38.0X5A - Adverse effect of glucocorticoids and synthetic analogues, initial encounter SNOMED: 776301791 (3) ASHLEY (acute kidney injury) ICD Codes: N17.9 - Acute kidney failure, unspecified SNOMED: 5709743, 06627902 (4) Bilateral pleural effusion ICD Codes: J90 - Pleural effusion, not elsewhere classified SNOMED: 516412629 (5) Leukemia ICD Codes: C95.90 - Leukemia, unspecified not having achieved remission SNOMED: 00446448 (6) Anxiety ICD Codes: F41.9 - Anxiety disorder, unspecified SNOMED: 60940794 Status: progressing Assessment/Plan: no need for basal insulin for now continue Novolog sliding scale hypoglycemia protocol in order Geoff Gomez MD Jun 13, 2020 14:33
--- NOTE | 2020-06-13 15:46 | Pulmonology Progress Note ---
Subjective ROS Limited/Unobtainable: No Interval Events: S/p VATS, Pleurex and lung biopsy Constitutional: Reports: no symptoms, other - transferred from ICU to [facility] HEENT: Repors: no symptoms Respiratory: Reports: dry cough Gastrointestinal/Abdominal: Denies: diarrhea Genitourinary: Reports: no symptoms Neurologic: Reports: no symptoms Musculoskeletal: Denies: pain Allergies: Coded Allergies: No Known Allergies (Unverified , 05/19/20) All Systems: reviewed and negative except above Objective Last 24 Hour Vital Signs Date Time Temp Pulse Resp B/P (MAP) Pulse Ox O2 Delivery O2 Flow Rate FiO2 06/13/20 12:00 Nasal Cannula 4.0 Nasal Cannula 4.0 06/13/20 12:00 78 06/13/20 11:58 97.1 98 15 115/75 (88) 96 06/13/20 08:00 92 06/13/20 08:00 Nasal Cannula 4.0 Nasal Cannula 4.0 06/13/20 08:00 97.0 86 15 93/57 (69) 100 06/13/20 08:00 4.0 06/13/20 04:00 79 06/13/20 04:00 97.0 89 20 152/75 (100) 100 06/13/20 04:00 Nasal Cannula 4.0 Nasal Cannula 4.0 06/13/20 04:00 4.0 06/13/20 00:00 90 06/13/20 00:00 4.0 06/13/20 00:00 Nasal Cannula 4.0 Nasal Cannula 4.0 06/13/20 00:00 97.7 85 20 107/74 (85) 99 06/12/20 20:00 4.0 06/12/20 20:00 90 06/12/20 20:00 Nasal Cannula 4.0 Nasal Cannula 4.0 06/12/20 20:00 97.9 90 20 92/63 (73) 98 06/12/20 16:00 4.0 06/12/20 16:00 98.1 86 24 113/71 (85) 97 06/12/20 16:00 Nasal Cannula 4.0 Nasal Cannula 4.0 06/12/20 15:59 86 Intake and Output 06/12/20 06/13/20 19:00 07:00 Intake Total 1240 ml 240 ml Output Total 250 ml Balance 990 ml 240 ml Intake Oral 1240 ml 240 ml Output Urine Total 250 ml # Voids 1 1 General Appearance: no acute distress Respiratory: chest wall non-tender, normal breath sounds, no respiratory distress, no accessory muscle use, decreased breath sounds Cardiovascular: normal peripheral pulses, normal rate Abdomen: normal bowel sounds Extremities: no cyanosis, no clubbing, no edema Neurologic: oriented x 3 Laboratory Tests 06/13/20 05:45: White Blood Count 11.2H, Red Blood Count 4.11L, Hemoglobin 11.7L, Hematocrit 34.0L, Mean Corpuscular Volume 83, Mean Corpuscular Hemoglobin 28.4, Mean Corpuscular Hemoglobin Concent 34.3, Red Cell Distribution Width 14.1, Platelet Count 245, Mean Platelet Volume 6.4L, Neutrophils (%) (Auto) , Lymphocytes (%) (Auto) , Monocytes (%) (Auto) , Eosinophils (%) (Auto) , Basophils (%) (Auto) , Differential Total Cells Counted 100, Neutrophils % (Manual) 88H, Lymphocytes % (Manual) 7L, Monocytes % (Manual) 5, Eosinophils % (Manual) 0, Basophils % (Manual) 0, Band Neutrophils 0, Platelet Estimate Adequate, Platelet Morphology Normal, Hypochromasia 1+, Anisocytosis 1+, Sodium Level 136, Potassium Level 4.2, Chloride Level 103, Carbon Dioxide Level 29, Anion Gap 4L, Blood Urea Nitrogen 39H, Creatinine 0.8, Estimat Glomerular Filtration Rate > 60, Glucose Level 129H, Calcium Level 7.6L, Phosphorus Level 2.5, Magnesium Level 2.3, Total Bilirubin 0.3, Aspartate Amino Transf (AST/SGOT) 26, Alanine Aminotransferase (ALT/SGPT) 11L, Alkaline Phosphatase 85, C-Reactive Protein, Quantitative 1.4H, Pro-B-Type Natriuretic Peptide 78327X, Total Protein 4.4L, Albumin 1.6L, Globulin 2.8, Albumin/Globulin Ratio 0.6L 06/13/20 11:47: POC Whole Blood Glucose 219H Current Medications Medications (Trade) Dose Ordered Sig/Jennie Route PRN Reason Start Time Stop Time Status Last Admin Dose Admin Acetaminophen (Tylenol) 500 mg Q6H PRN ORAL Mild Pain (Pain Scale 1-3) 05/19/20 16:45 06/18/20 16:44 Acetaminophen/ Hydrocodone Bitart ([place] 10/325) 1 tab Q4H PRN ORAL Pain Scale (6-10) 06/09/20 11:00 06/16/20 10:59 Acetaminophen/ Hydrocodone Bitart ([place] 5/325) 1 tab Q4H PRN ORAL Moderate Pain (Pain Scale 4-6) 06/09/20 11:00 06/16/20 10:59 Allopurinol (allopurinoL) 300 mg DAILY ORAL 06/06/20 11:00 07/06/20 10:59 06/13/20 09:16 Barium Sulfate (Varibar Honey) 250 ml NOW PRN MC RAD 06/11/20 10:15 06/14/20 10:05 Barium Sulfate (Varibar [place]) 240 ml NOW PRN MC RAD 06/11/20 10:15 06/14/20 10:05 Barium Sulfate (Varibar Pudding) 230 ml NOW PRN MC RAD 06/11/20 10:15 06/14/20 10:05 Barium Sulfate (Varibar Thin Liquid powder) 148 gm NOW PRN MC RAD 06/11/20 10:15 06/14/20 10:05 Cefepime HCl 1 gm/ Dextrose 55 ml @ 110 mls/hr EVERY 12 HOURS IVPB 06/09/20 10:45 06/16/20 10:44 06/13/20 09:16 Clonidine HCl (Catapres Tab) 0.1 mg Q4H PRN ORAL SBP > 170 05/24/20 13:15 08/22/20 13:14 Dexamethasone Sodium Phosphate (Decadron 4mg/ml vial) 4 mg DAILY IVP 06/07/20 12:30 09/05/20 12:29 06/13/20 09:16 Dextrose (Dextrose 50%) 25 ml Q30M PRN IV Hypoglycemia 06/10/20 06:45 09/08/20 06:44 Dextrose (Dextrose 50%) 50 ml Q30M PRN IV Hypoglycemia 06/10/20 06:45 09/08/20 06:44 Docusate Sodium (Colace) 100 mg TWICE A DAY ORAL 05/22/20 18:00 06/21/20 17:59 06/13/20 09:16 Enoxaparin Sodium (Lovenox) 40 mg DAILY SUBQ 06/02/20 09:00 08/31/20 08:59 06/13/20 09:21 Insulin Aspart (NovoLOG) BEFORE MEALS AND HS SUBQ 06/05/20 06:30 09/03/20 06:29 06/13/20 11:55 Mirtazapine (Remeron) 7.5 mg BEDTIME ORAL 06/02/20 21:00 08/31/20 20:59 06/12/20 21:18 Morphine Sulfate (Morphine Sulfate) 2 mg Q4H PRN IVP Severe Pain (Pain Scale 7-10) 06/09/20 11:00 06/16/20 10:59 Pantoprazole (Protonix) 40 mg DAILY IVP 06/08/20 09:00 07/08/20 08:59 06/13/20 09:15 Sodium Chloride 500 ml @ 999 mls/hr Q31M PRN IV For hypotension 06/09/20 17:00 07/09/20 16:59 06/09/20 21:08 Assessment/Plan Assessment/Plan IMPRESSION: 1. History of CML, on dasatinib. 2. Possible pneumonia. 3. Large pleural effusion bilateral s/p B thoracentesis. 4. Hypertension. 5. Elevated D-dimer DISCUSSION: S/p Bilateral thoracentesis pulse ox 97 % 4 liter o2 Seen by CTS re : Pleurex, Chest tube removed Will continue diuresis Agree with broad-spectrum antibiotics. Above plan discussed with supervising physician Balbir Palmer NP Jun 13, 2020 15:45
[2020-06-13 16:01] VITALS: BP 103/67
--- NOTE | 2020-06-13 16:13 | Cardiac Electrophysiology PN ---
Assessment/Plan Assessment/Plan 1. Hypertension. Stable off BP meds 2. Troponin leak. No CP, ECG non ischemic and due to renal failure 3. Bilateral pleural effusions. S/P Right side thoracentesis x 2. FU by Dr. Olson. S/P Left thoracentesis again x2 last one 05/29/20. S/P VATS by Dr Joseph with bilateral chest tubes 06/09/20. Extubated and on nasal cannula Chest tubes removed today 4. Hyponatremia. 5. CML x 5 years, sees oncologist in [facility] DCed desatanib (also is the likely cause of pleural effusions) Per Dr Dolan 6. Acute renal failure with sudden JUMP in creatinine to 2.7. FU Dr Carpio. Better after iv fluid, Albumin and off Lisinopril. Cr down to 0.8 DW RN Subjective Subjective S/P 2 Right sided thoracentesis on 05/21/20 and 05/26/20 S/P 2 Left thoracentesis last one 05/29/20 S/P VATS by Dr. Joseph 06/09/20. Extubated and off pressors. Both chest tubes were removed. On 4 liter Nasal cannula. Objective Last 24 Hour Vital Signs Date Time Temp Pulse Resp B/P (MAP) Pulse Ox O2 Delivery O2 Flow Rate FiO2 06/13/20 16:02 Nasal Cannula 4.0 Nasal Cannula 4.0 06/13/20 16:01 97.3 87 15 103/67 (79) 96 06/13/20 16:00 98 06/13/20 12:00 Nasal Cannula 4.0 Nasal Cannula 4.0 06/13/20 12:00 78 06/13/20 11:58 97.1 98 15 115/75 (88) 96 06/13/20 08:00 92 06/13/20 08:00 Nasal Cannula 4.0 Nasal Cannula 4.0 06/13/20 08:00 97.0 86 15 93/57 (69) 100 06/13/20 08:00 4.0 06/13/20 04:00 79 06/13/20 04:00 97.0 89 20 152/75 (100) 100 06/13/20 04:00 Nasal Cannula 4.0 Nasal Cannula 4.0 06/13/20 04:00 4.0 06/13/20 00:00 90 06/13/20 00:00 4.0 06/13/20 00:00 Nasal Cannula 4.0 Nasal Cannula 4.0 06/13/20 00:00 97.7 85 20 107/74 (85) 99 06/12/20 20:00 4.0 06/12/20 20:00 90 06/12/20 20:00 Nasal Cannula 4.0 Nasal Cannula 4.0 06/12/20 20:00 97.9 90 20 92/63 (73) 98 Intake and Output 06/12/20 06/13/20 19:00 07:00 Intake Total 1240 ml 240 ml Output Total 250 ml Balance 990 ml 240 ml Intake Oral 1240 ml 240 ml Output Urine Total 250 ml # Voids 1 1 Laboratory Tests Test 06/13/20 05:45 06/13/20 11:47 White Blood Count 11.2 K/UL (4.8-10.8) H Red Blood Count 4.11 M/UL (4.20-5.40) L Hemoglobin 11.7 G/DL (12.0-16.0) L Hematocrit 34.0 % (37.0-47.0) L Mean Corpuscular Volume 83 FL (80-99) Mean Corpuscular Hemoglobin 28.4 PG (27.0-31.0) Mean Corpuscular Hemoglobin Concent 34.3 G/DL (32.0-36.0) Red Cell Distribution Width 14.1 % (11.6-14.8) Platelet Count 245 K/UL (150-450) Mean Platelet Volume 6.4 FL (6.5-10.1) L Neutrophils (%) (Auto) % (45.0-75.0) Lymphocytes (%) (Auto) % (20.0-45.0) Monocytes (%) (Auto) % (1.0-10.0) Eosinophils (%) (Auto) % (0.0-3.0) Basophils (%) (Auto) % (0.0-2.0) Differential Total Cells Counted 100 Neutrophils % (Manual) 88 % (45-75) H Lymphocytes % (Manual) 7 % (20-45) L Monocytes % (Manual) 5 % (1-10) Eosinophils % (Manual) 0 % (0-3) Basophils % (Manual) 0 % (0-2) Band Neutrophils 0 % (0-8) Platelet Estimate Adequate Platelet Morphology Normal Hypochromasia 1+ Anisocytosis 1+ Sodium Level 136 MMOL/L (136-145) Potassium Level 4.2 MMOL/L (3.5-5.1) Chloride Level 103 MMOL/L (98-107) Carbon Dioxide Level 29 MMOL/L (21-32) Anion Gap 4 mmol/L (5-15) L Blood Urea Nitrogen 39 mg/dL (7-18) H Creatinine 0.8 MG/DL (0.55-1.30) Estimat Glomerular Filtration Rate > 60 mL/min (>60) Glucose Level 129 MG/DL (74-106) H Calcium Level 7.6 MG/DL (8.5-10.1) L Phosphorus Level 2.5 MG/DL (2.5-4.9) Magnesium Level 2.3 MG/DL (1.8-2.4) Total Bilirubin 0.3 MG/DL (0.2-1.0) Aspartate Amino Transf (AST/SGOT) 26 U/L (15-37) Alanine Aminotransferase (ALT/SGPT) 11 U/L (12-78) L Alkaline Phosphatase 85 U/L (46-116) C-Reactive Protein, Quantitative 1.4 mg/dL (0.00-0.90) H Pro-B-Type Natriuretic Peptide 75381 pg/mL (0-125) H Total Protein 4.4 G/DL (6.4-8.2) L Albumin 1.6 G/DL (3.4-5.0) L Globulin 2.8 g/dL Albumin/Globulin Ratio 0.6 (1.0-2.7) L POC Whole Blood Glucose 219 MG/DL (74-106) H Objective HEAD AND NECK: No JVD. LUNGS: Decreased breath sounds.Bilateral chest tubes removed now CARDIOVASCULAR: Regular S1 and S2 and tachycardic. ABDOMEN: Soft. EXTREMITIES: No pitting edema. Cristian England MD Jun 13, 2020 16:13
--- NOTE | 2020-06-13 18:36 | General Progress Note ---
Subjective ROS Limited/Unobtainable: Yes Allergies: Coded Allergies: No Known Allergies (Unverified , 05/19/20) Objective Last 24 Hour Vital Signs Date Time Temp Pulse Resp B/P (MAP) Pulse Ox O2 Delivery O2 Flow Rate FiO2 06/13/20 16:02 Nasal Cannula 4.0 Nasal Cannula 4.0 06/13/20 16:01 97.3 87 15 103/67 (79) 96 06/13/20 16:00 98 06/13/20 12:00 Nasal Cannula 4.0 Nasal Cannula 4.0 06/13/20 12:00 78 06/13/20 11:58 97.1 98 15 115/75 (88) 96 06/13/20 08:00 92 06/13/20 08:00 Nasal Cannula 4.0 Nasal Cannula 4.0 06/13/20 08:00 97.0 86 15 93/57 (69) 100 06/13/20 08:00 4.0 06/13/20 04:00 79 06/13/20 04:00 97.0 89 20 152/75 (100) 100 06/13/20 04:00 Nasal Cannula 4.0 Nasal Cannula 4.0 06/13/20 04:00 4.0 06/13/20 00:00 90 06/13/20 00:00 4.0 06/13/20 00:00 Nasal Cannula 4.0 Nasal Cannula 4.0 06/13/20 00:00 97.7 85 20 107/74 (85) 99 06/12/20 20:00 4.0 06/12/20 20:00 90 06/12/20 20:00 Nasal Cannula 4.0 Nasal Cannula 4.0 06/12/20 20:00 97.9 90 20 92/63 (73) 98 Intake and Output 06/12/20 06/13/20 19:00 07:00 Intake Total 1240 ml 240 ml Output Total 250 ml Balance 990 ml 240 ml Intake Oral 1240 ml 240 ml Output Urine Total 250 ml # Voids 1 1 Laboratory Tests 06/13/20 05:45: White Blood Count 11.2H, Red Blood Count 4.11L, Hemoglobin 11.7L, Hematocrit 34.0L, Mean Corpuscular Volume 83, Mean Corpuscular Hemoglobin 28.4, Mean Corpuscular Hemoglobin Concent 34.3, Red Cell Distribution Width 14.1, Platelet Count 245, Mean Platelet Volume 6.4L, Neutrophils (%) (Auto) , Lymphocytes (%) (Auto) , Monocytes (%) (Auto) , Eosinophils (%) (Auto) , Basophils (%) (Auto) , Differential Total Cells Counted 100, Neutrophils % (Manual) 88H, Lymphocytes % (Manual) 7L, Monocytes % (Manual) 5, Eosinophils % (Manual) 0, Basophils % (Manual) 0, Band Neutrophils 0, Platelet Estimate Adequate, Platelet Morphology Normal, Hypochromasia 1+, Anisocytosis 1+, Sodium Level 136, Potassium Level 4.2, Chloride Level 103, Carbon Dioxide Level 29, Anion Gap 4L, Blood Urea Nitrogen 39H, Creatinine 0.8, Estimat Glomerular Filtration Rate > 60, Glucose Level 129H, Calcium Level 7.6L, Phosphorus Level 2.5, Magnesium Level 2.3, Total Bilirubin 0.3, Aspartate Amino Transf (AST/SGOT) 26, Alanine Aminotransferase (ALT/SGPT) 11L, Alkaline Phosphatase 85, C-Reactive Protein, Quantitative 1.4H, Pro-B-Type Natriuretic Peptide [id number], Total Protein 4.4L, Albumin 1.6L, [place] bulin 2.8, Albumin/Globulin Ratio 0.6L 06/13/20 11:47: POC Whole Blood Glucose 219H 06/13/20 16:45: POC Whole Blood Glucose 280H Height (Feet): 5 Height (Inches): 0.00 Weight (Pounds): 111 Assessment/Plan Problem List: (1) Leukemia ICD Codes: C95.90 - Leukemia, unspecified not having achieved remission SNOMED: 48219652 (2) Bilateral pleural effusion ICD Codes: J90 - Pleural effusion, not elsewhere classified SNOMED: 702476115 Status: progressing Assessment/Plan: extubated at times sob continue oxygen reviewed chart and labs s/p thoracocentesis for recurrent pleural effusion Tiara Jara MD Jun 13, 2020 18:36
[2020-06-13 20:00] VITALS: BP 116/62
[2020-06-14] VITALS: BP 92/59
[2020-06-14 04:00] VITALS: BP 93/61
[2020-06-14] MEDS: NovoLOG Insulin Flexpen SUBQ SCH ×4 (06:30→20:47)
[2020-06-14 08:00] VITALS: BP_SYST 100; BP_SYST 84; BP_DIAS 53; BP_DIAS 60
[2020-06-14] MEDS: Pantoprazole Inj IVP SCH (08:33)
[2020-06-14] MEDS: Docusate 100mg cap ORAL SCH ×2 (08:34→17:10)
[2020-06-14] MEDS: Cefepime HCl 1 GM in D5W 55 ML IVPB SCH (08:34)
[2020-06-14] MEDS: Enoxaparin 40mg Inj SUBQ SCH (08:35)
--- NOTE | 2020-06-14 09:15 | Diagnostic Imaging Report ---
EXAM: XR Chest, 1 View CLINICAL HISTORY: ABN CHST TECHNIQUE: Frontal view of the chest. COMPARISON: Chest radiograph June 13, 2020 FINDINGS/IMPRESSION: Mild left pleural effusion. Associated left basilar chest tube. Overall, no significant change in size of left pleural effusion. Mild vascular congestion. No pneumothorax. No definite infiltrate. Mild cardiomegaly. Calcified aorta.
--- NOTE | 2020-06-14 09:33 | Pulmonology Progress Note ---
Subjective ROS Limited/Unobtainable: Yes Interval Events: S/p VATS, Pleurex and lung biopsy Constitutional: Reports: no symptoms, other - transferred from ICU to [facility] HEENT: Repors: no symptoms Respiratory: Reports: dry cough Gastrointestinal/Abdominal: Denies: diarrhea Genitourinary: Reports: no symptoms Neurologic: Reports: no symptoms Musculoskeletal: Denies: pain Allergies: Coded Allergies: No Known Allergies (Unverified , 05/19/20) All Systems: reviewed and negative except above Objective Last 24 Hour Vital Signs Date Time Temp Pulse Resp B/P (MAP) Pulse Ox O2 Delivery O2 Flow Rate FiO2 06/14/20 08:00 97.3 91 18 84/53 (63) 100 06/14/20 08:00 76 06/14/20 04:00 74 06/14/20 04:00 97.7 79 16 93/61 (72) 100 06/14/20 04:00 Nasal Cannula 4.0 Nasal Cannula 4.0 06/14/20 00:00 97.6 87 18 92/59 (70) 100 06/14/20 00:00 Nasal Cannula 4.0 Nasal Cannula 4.0 06/13/20 23:33 78 06/13/20 20:00 Nasal Cannula 4.0 Nasal Cannula 4.0 06/13/20 20:00 84 06/13/20 20:00 97.7 87 16 116/62 (80) 99 06/13/20 16:02 Nasal Cannula 4.0 Nasal Cannula 4.0 06/13/20 16:01 97.3 87 15 103/67 (79) 96 06/13/20 16:00 98 06/13/20 12:00 Nasal Cannula 4.0 Nasal Cannula 4.0 06/13/20 12:00 78 06/13/20 11:58 97.1 98 15 115/75 (88) 96 Intake and Output 06/13/20 06/14/20 19:00 07:00 Intake Total 775 ml 170 ml Output Total 161 ml Balance 614 ml 170 ml Intake Oral 720 ml 170 ml IV Total 55 ml Stool Total 11 ml Chest Tube Drainage Total 150 ml # Voids 2 # Bowel Movements 1 3 General Appearance: no acute distress Respiratory: chest wall non-tender, normal breath sounds, no respiratory distress, no accessory muscle use, decreased breath sounds Cardiovascular: normal peripheral pulses, normal rate Abdomen: normal bowel sounds Extremities: no cyanosis, no clubbing, no edema Neurologic: oriented x 3 Laboratory Tests 06/13/20 11:47: POC Whole Blood Glucose 219H 06/13/20 16:45: POC Whole Blood Glucose 280H 06/13/20 20:57: POC Whole Blood Glucose [Pending] Current Medications Medications (Trade) Dose Ordered Sig/Jennie Route PRN Reason Start Time Stop Time Status Last Admin Dose Admin Acetaminophen (Tylenol) 500 mg Q6H PRN ORAL Mild Pain (Pain Scale 1-3) 05/19/20 16:45 06/18/20 16:44 Acetaminophen/ Hydrocodone Bitart ([place] 10/325) 1 tab Q4H PRN ORAL Pain Scale (6-10) 06/09/20 11:00 06/16/20 10:59 Acetaminophen/ Hydrocodone Bitart ([place] 5/325) 1 tab Q4H PRN ORAL Moderate Pain (Pain Scale 4-6) 06/09/20 11:00 06/16/20 10:59 Allopurinol (allopurinoL) 300 mg DAILY ORAL 06/06/20 11:00 07/06/20 10:59 06/14/20 08:34 Barium Sulfate (Varibar Honey) 250 ml NOW PRN MC RAD 06/11/20 10:15 06/14/20 10:05 Barium Sulfate (Varibar [place]) 240 ml NOW PRN MC RAD 06/11/20 10:15 06/14/20 10:05 Barium Sulfate (Varibar Pudding) 230 ml NOW PRN MC RAD 06/11/20 10:15 06/14/20 10:05 Barium Sulfate (Varibar Thin Liquid powder) 148 gm NOW PRN MC RAD 06/11/20 10:15 06/14/20 10:05 Cefepime HCl 1 gm/ Dextrose 55 ml @ 110 mls/hr EVERY 12 HOURS IVPB 06/09/20 10:45 06/16/20 10:44 06/14/20 08:34 Clonidine HCl (Catapres Tab) 0.1 mg Q4H PRN ORAL SBP > 170 05/24/20 13:15 08/22/20 13:14 Dexamethasone Sodium Phosphate (Decadron 4mg/ml vial) 4 mg DAILY IVP 06/07/20 12:30 09/05/20 12:29 06/14/20 08:33 Dextrose (Dextrose 50%) 25 ml Q30M PRN IV Hypoglycemia 06/10/20 06:45 09/08/20 06:44 Dextrose (Dextrose 50%) 50 ml Q30M PRN IV Hypoglycemia 06/10/20 06:45 09/08/20 06:44 Docusate Sodium (Colace) 100 mg TWICE A DAY ORAL 05/22/20 18:00 06/21/20 17:59 06/14/20 08:34 Enoxaparin Sodium (Lovenox) 40 mg DAILY SUBQ 06/02/20 09:00 08/31/20 08:59 06/14/20 08:35 Insulin Aspart (NovoLOG) BEFORE MEALS AND HS SUBQ 06/05/20 06:30 09/03/20 06:29 06/13/20 21:00 Mirtazapine (Remeron) 7.5 mg BEDTIME ORAL 06/02/20 21:00 08/31/20 20:59 06/13/20 20:49 Morphine Sulfate (Morphine Sulfate) 2 mg Q4H PRN IVP Severe Pain (Pain Scale 7-10) 06/09/20 11:00 06/16/20 10:59 Pantoprazole (Protonix) 40 mg DAILY IVP 06/08/20 09:00 07/08/20 08:59 06/14/20 08:33 Sodium Chloride 500 ml @ 999 mls/hr Q31M PRN IV For hypotension 06/09/20 17:00 07/09/20 16:59 06/09/20 21:08 Assessment/Plan Assessment/Plan IMPRESSION: 1. History of CML, on dasatinib. 2. Possible pneumonia. 3. Large pleural effusion, s/p B thoracentesis. 4. Hypertension. 5. Elevated D-dimer DISCUSSION: S/p VATS, B Pleurex and lung biopsy Pleurex in place On 4L/min O2 Off IV fluids DC planning for home in [place] after family training DVT prophylaxis Michelet Hernandez Omar Syed MD Jun 14, 2020 09:33
--- NOTE | 2020-06-14 09:52 | General Progress Note ---
Subjective ROS Limited/Unobtainable: No Allergies: Coded Allergies: No Known Allergies (Unverified , 05/19/20) Objective Last 24 Hour Vital Signs Date Time Temp Pulse Resp B/P (MAP) Pulse Ox O2 Delivery O2 Flow Rate FiO2 06/14/20 08:00 97.3 91 18 84/53 (63) 100 06/14/20 08:00 76 06/14/20 04:00 74 06/14/20 04:00 97.7 79 16 93/61 (72) 100 06/14/20 04:00 Nasal Cannula 4.0 Nasal Cannula 4.0 06/14/20 00:00 97.6 87 18 92/59 (70) 100 06/14/20 00:00 Nasal Cannula 4.0 Nasal Cannula 4.0 06/13/20 23:33 78 06/13/20 20:00 Nasal Cannula 4.0 Nasal Cannula 4.0 06/13/20 20:00 84 06/13/20 20:00 97.7 87 16 116/62 (80) 99 06/13/20 16:02 Nasal Cannula 4.0 Nasal Cannula 4.0 06/13/20 16:01 97.3 87 15 103/67 (79) 96 06/13/20 16:00 98 06/13/20 12:00 Nasal Cannula 4.0 Nasal Cannula 4.0 06/13/20 12:00 78 06/13/20 11:58 97.1 98 15 115/75 (88) 96 Intake and Output 06/13/20 06/14/20 19:00 07:00 Intake Total 775 ml 170 ml Output Total 161 ml Balance 614 ml 170 ml Intake Oral 720 ml 170 ml IV Total 55 ml Stool Total 11 ml Chest Tube Drainage Total 150 ml # Voids 2 # Bowel Movements 1 3 Laboratory Tests 06/13/20 11:47: POC Whole Blood Glucose 219H 06/13/20 16:45: POC Whole Blood Glucose 280H 06/13/20 20:57: POC Whole Blood Glucose [Pending] Height (Feet): 5 Height (Inches): 0.00 Weight (Pounds): 111 General Appearance: no apparent distress EENT: normal ENT inspection Neck: supple Cardiovascular: normal rate Respiratory/Chest: decreased breath sounds Abdomen: hypoactive bowel sounds Extremities: non-tender Assessment/Plan Status: progressing Assessment/Plan: Assessment/Plan Status: progressing Assessment/Plan: Assessment - Respiratory failure- improved - pleural effusions, s/p thoracentesis - Renal failure - resolved - Elevated troponin - HTN - CML Recommendations - Pulmonary management - Elevate HOB - po diet as tolerated - follow labs and exam Carlos Awad MD Jun 14, 2020 09:52
--- NOTE | 2020-06-14 11:32 | Hematology/Onc Progress Note ---
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, sees onc[facility] --> at this time STOP desatanib (also is the likely cause of pleural effusions) --> no is s/p thora per pulm/cards --> 06/04 started low dose dexamethasone for immune response suppression --> wbc trend 18->7->10-->19->11 --> hgb 11.5->12->13-->11 --> ABX ceftriaxone-->off --> bipap, thora prn, may need ct tube --> needs molecular and cytogenectic response for CML, f/u oncologist outpatient # Bilateral pleural effusion --> as per pulm, is on bipap --> thora as needed --> repeat thora prn 05/29 --> pleural fluid is neg for malignancy --> dr. Joseph has accessed--> for biospy pleural->pleural fluid neg for malignancy 06/11 --> 06/[address]-->remove as needed --> imaging q2-3 days # HTN --> hydralazine and lisinopril --> sbp goal <140 # Dehydration --> goal of euvolemia # Elevated ddimer --> duplex lower ext r/o dvt==>neg # Dvt ppx lovenox sq Appreciate consultation and dw RN Subjective Constitutional: Denies: no symptoms, chills, fever, malaise, weakness, other HEENT: Denies: no symptoms, eye pain, blurred vision, tearing, double vision, ear pain, ear discharge, nose pain, nose congestion, throat pain, throat swelling, mouth pain, mouth swelling, other Cardiovascular: Denies: no symptoms, chest pain, edema, irregular heart rate, lightheadedness, palpitations, syncope, other Respiratory: Denies: no symptoms, cough, shortness of breath, SOB with exce rtion, SOB at rest, sputum, wheezing, other Gastrointestinal/Abdominal: Denies: no symptoms, abdomen distended, abdominal pain, black stools, tarry stools, blood in stool, constipated, diarrhea, difficulty swallowing, nausea, poor appetite, poor fluid intake, rectal bleeding, vomiting, other Genitourinary: Denies: no symptoms, burning, discharge, frequency, flank pain, hematuria, incontinence, pain, urgency, other Neurologic/Psychiatric: Denies: no symptoms, anxiety, depressed, emotional problems, headache, numbness, paresthesia, pre-existing deficit, seizure, tingling, tremors, weakness, other Endocrine: Denies: no symptoms, excessive sweating, flushing, intolerance to c old, intolerance to heat, increased hunger, increased thirst, increased urine, unexplained weight gain, unexplained weight loss, other Allergies: Coded Allergies: No Known Allergies (Unverified , 05/19/20) Subjective 05/21 labs are noted, no bleeding, with pleural effusions due to desatanbib, s/p thora 05/22 labs are noted, no bleeding, on bipap, i dw her today to stop her med at once 05/24 wbc is improved, continue on ctx for one more day per id, bipap 05/26 have ordered for repeat cxr this am to reeval pleural effusions, labs noted 05/27 with b/l pleural effusions, aware from pulm, thora prn 05/28 has been refusing scds, thus will start lovenox today, breathing better s/p thora 05/29 with nonrebreather, for thora today, no night sweats, meds noted 05/31 remains on bipap, meds reviewed, off desatanib, worse effusion r>l 06/01 on bipap this am, labs pending for am 06/02 unable to wean off facemask, requiring it, will dw sister today 06/03 labs reviewed, meds noted, continues to be bipap support 06/04 no aspiration, is comfortable, meds reviewed, no bleeding 06/05 dw pulm yes, may need ct surg eval, chest tube, started steriods 06/06: labs reviewed no acute events overnight. 06/07 comfortable, no bleeding, meds reviewed, is on bipap still 06/08 labs reviewed, imaging noted, is on bipap this am 06/09 wbc higher, for procedure today, by cts, may get pleural biopsy 06/10 ct placed yest, today in am was intubated, but now extubated on nc in afternoon, dw Rn 06/11 labs reviewed, no bleeding, remains in the icu, wbc 19 06/12 breathing has improved,cbc ordered, no bleeding, labs noted 06/14 labs reviewed, no night sweats, no bleeding, meds noted Objective Objective Current Medications Medications (Trade) Dose Ordered Sig/Jennie Route PRN Reason Start Time Stop Time Status Last Admin Dose Admin Acetaminophen (Tylenol) 500 mg Q6H PRN ORAL Mild Pain (Pain Scale 1-3) 05/19/20 16:45 06/18/20 16:44 Acetaminophen/ Hydrocodone Bitart ([place] 10/325) 1 tab Q4H PRN ORAL Pain Scale (6-10) 06/09/20 11:00 06/16/20 10:59 Acetaminophen/ Hydrocodone Bitart ([place] 5/325) 1 tab Q4H PRN ORAL Moderate Pain (Pain Scale 4-6) 06/09/20 11:00 06/16/20 10:59 Allopurinol (allopurinoL) 300 mg DAILY ORAL 06/06/20 11:00 07/06/20 10:59 06/14/20 08:34 Cefepime HCl 1 gm/ Dextrose 55 ml @ 110 mls/hr EVERY 12 HOURS IVPB 06/09/20 10:45 06/16/20 10:44 06/14/20 08:34 Clonidine HCl (Catapres Tab) 0.1 mg Q4H PRN ORAL SBP > 170 05/24/20 13:15 08/22/20 13:14 Dexamethasone Sodium Phosphate (Decadron 4mg/ml vial) 4 mg DAILY IVP 06/07/20 12:30 09/05/20 12:29 06/14/20 08:33 Dextrose (Dextrose 50%) 25 ml Q30M PRN IV Hypoglycemia 06/10/20 06:45 09/08/20 06:44 Dextrose (Dextrose 50%) 50 ml Q30M PRN IV Hypoglycemia 06/10/20 06:45 09/08/20 06:44 Docusate Sodium (Colace) 100 mg TWICE A DAY ORAL 05/22/20 18:00 06/21/20 17:59 06/14/20 08:34 Enoxaparin Sodium (Lovenox) 40 mg DAILY SUBQ 06/02/20 09:00 08/31/20 08:59 06/14/20 08:35 Insulin Aspart (NovoLOG) BEFORE MEALS AND HS SUBQ 06/05/20 06:30 09/03/20 06:29 06/13/20 21:00 Mirtazapine (Remeron) 7.5 mg BEDTIME ORAL 06/02/20 21:00 08/31/20 20:59 06/13/20 20:49 Morphine Sulfate (Morphine Sulfate) 2 mg Q4H PRN IVP Severe Pain (Pain Scale 7-10) 06/09/20 11:00 06/16/20 10:59 Pantoprazole (Protonix) 40 mg DAILY IVP 06/08/20 09:00 07/08/20 08:59 06/14/20 08:33 Sodium Chloride 500 ml @ 999 mls/hr Q31M PRN IV For hypotension 06/09/20 17:00 07/09/20 16:59 06/09/20 21:08 Last 24 Hour Vital Signs Date Time Temp Pulse Resp B/P (MAP) Pulse Ox O2 Delivery O2 Flow Rate FiO2 06/14/20 08:00 97.3 91 18 84/53 (63) 100 06/14/20 08:00 76 06/14/20 04:00 74 06/14/20 04:00 97.7 79 16 93/61 (72) 100 06/14/20 04:00 Nasal Cannula 4.0 Nasal Cannula 4.0 06/14/20 00:00 97.6 87 18 92/59 (70) 100 06/14/20 00:00 Nasal Cannula 4.0 Nasal Cannula 4.0 06/13/20 23:33 78 06/13/20 20:00 Nasal Cannula 4.0 Nasal Cannula 4.0 06/13/20 20:00 84 06/13/20 20:00 97.7 87 16 116/62 (80) 99 06/13/20 16:02 Nasal Cannula 4.0 Nasal Cannula 4.0 06/13/20 16:01 97.3 87 15 103/67 (79) 96 06/13/20 16:00 98 06/13/20 12:00 Nasal Cannula 4.0 Nasal Cannula 4.0 06/13/20 12:00 78 06/13/20 11:58 97.1 98 15 115/75 (88) 96 06/13/20 08:00 92 06/13/20 08:00 Nasal Cannula 4.0 Nasal Cannula 4.0 06/13/20 08:00 97.0 86 15 93/57 (69) 100 06/13/20 08:00 4.0 06/13/20 04:00 79 06/13/20 04:00 97.0 89 20 152/75 (100) 100 06/13/20 04:00 Nasal Cannula 4.0 Nasal Cannula 4.0 06/13/20 04:00 4.0 06/13/20 00:00 90 06/13/20 00:00 4.0 06/13/20 00:00 Nasal Cannula 4.0 Nasal Cannula 4.0 06/13/20 00:00 97.7 85 20 107/74 (85) 99 06/12/20 20:00 4.0 06/12/20 20:00 90 06/12/20 20:00 Nasal Cannula 4.0 Nasal Cannula 4.0 06/12/20 20:00 97.9 90 20 92/63 (73) 98 06/12/20 16:00 4.0 06/12/20 16:00 98.1 86 24 113/71 (85) 97 06/12/20 16:00 Nasal Cannula 4.0 Nasal Cannula 4.0 06/12/20 15:59 86 06/12/20 12:00 89 06/12/20 12:00 Nasal Cannula 4.0 Nasal Cannula 4.0 06/12/20 12:00 4.0 06/12/20 11:49 97.7 84 22 142/77 (98) 96 Intake and Output 06/13/20 06/14/20 19:00 07:00 Intake Total 775 ml 170 ml Output Total 161 ml Balance 614 ml 170 ml Intake Oral 720 ml 170 ml IV Total 55 ml Stool Total 11 ml Chest Tube Drainage Total 150 ml # Voids 2 # Bowel Movements 1 3 Labs Test 06/11/20 17:07 06/12/20 05:26 06/12/20 11:41 06/12/20 12:20 POC Whole Blood Glucose 128 MG/DL (74-106) 214 MG/DL (74-106) White Blood Count 19.0 K/UL (4.8-10.8) Red Blood Count 4.60 M/UL (4.20-5.40) Hemoglobin 12.9 G/DL (12.0-16.0) Hematocrit 39.3 % (37.0-47.0) Mean Corpuscular Volume 85 FL (80-99) Mean Corpuscular Hemoglobin 28.0 PG (27.0-31.0) Mean Corpuscular Hemoglobin Concent 32.7 G/DL (32.0-36.0) Red Cell Distribution Width 14.8 % (11.6-14.8) Platelet Count 305 K/UL (150-450) Mean Platelet Volume 6.6 FL (6.5-10.1) Neutrophils (%) (Auto) % (45.0-75.0) Lymphocytes (%) (Auto) % (20.0-45.0) Monocytes (%) (Auto) % (1.0-10.0) Eosinophils (%) (Auto) % (0.0-3.0) Basophils (%) (Auto) % (0.0-2.0) Differential Total Cells Counted 100 Neutrophils % (Manual) 95 % (45-75) Lymphocytes % (Manual) 3 % (20-45) Monocytes % (Manual) 2 % (1-10) Eosinophils % (Manual) 0 % (0-3) Basophils % (Manual) 0 % (0-2) Band Neutrophils 0 % (0-8) Platelet Estimate Adequate Platelet Morphology Normal Anisocytosis 1+ Test 06/13/20 05:45 06/13/20 11:47 06/13/20 16:45 06/13/20 20:57 White Blood Count 11.2 K/UL (4.8-10.8) Red Blood Count 4.11 M/UL (4.20-5.40) Hemoglobin 11.7 G/DL (12.0-16.0) Hematocrit 34.0 % (37.0-47.0) Mean Corpuscular Volume 83 FL (80-99) Mean Corpuscular Hemoglobin 28.4 PG (27.0-31.0) Mean Corpuscular Hemoglobin Concent 34.3 G/DL (32.0-36.0) Red Cell Distribution Width 14.1 % (11.6-14.8) Platelet Count 245 K/UL (150-450) Mean Platelet Volume 6.4 FL (6.5-10.1) Neutrophils (%) (Auto) % (45.0-75.0) Lymphocytes (%) (Auto) % (20.0-45.0) Monocytes (%) (Auto) % (1.0-10.0) Eosinophils (%) (Auto) % (0.0-3.0) Basophils (%) (Auto) % (0.0-2.0) Differential Total Cells Counted 100 Neutrophils % (Manual) 88 % (45-75) Lymphocytes % (Manual) 7 % (20-45) Monocytes % (Manual) 5 % (1-10) Eosinophils % (Manual) 0 % (0-3) Basophils % (Manual) 0 % (0-2) Band Neutrophils 0 % (0-8) Platelet Estimate Adequate Platelet Morphology Normal Hypochromasia 1+ Anisocytosis 1+ Sodium Level 136 MMOL/L (136-145) Potassium Level 4.2 MMOL/L (3.5-5.1) Chloride Level 103 MMOL/L (98-107) Carbon Dioxide Level 29 MMOL/L (21-32) Anion Gap 4 mmol/L (5-15) Blood Urea Nitrogen 39 mg/dL (7-18) Creatinine 0.8 MG/DL (0.55-1.30) Estimat Glomerular Filtration Rate > 60 mL/min (>60) Glucose Level 129 MG/DL (74-106) Calcium Level 7.6 MG/DL (8.5-10.1) Phosphorus Level 2.5 MG/DL (2.5-4.9) Magnesium Level 2.3 MG/DL (1.8-2.4) Total Bilirubin 0.3 MG/DL (0.2-1.0) Aspartate Amino Transf (AST/SGOT) 26 U/L (15-37) Alanine Aminotransferase (ALT/SGPT) 11 U/L (12-78) Alkaline Phosphatase 85 U/L (46-116) C-Reactive Protein, Quantitative 1.4 mg/dL (0.00-0.90) Pro-B-Type Natriuretic Peptide 98871 pg/mL (0-125) Total Protein 4.4 G/DL (6.4-8.2) Albumin 1.6 G/DL (3.4-5.0) Globulin 2.8 g/dL Albumin/Globulin Ratio 0.6 (1.0-2.7) POC Whole Blood Glucose 219 MG/DL (74-106) 280 MG/DL (74-106) Height (Feet): 5 Height (Inches): 0.00 Weight (Pounds): 111 Objective Physical Exam: Vitals: reviewed General: NAD HEENT: nc, at Neck: supple Chest: clear breath sounds bilaterally ++ left sided chest tube Cardiovascular: RRR, no s3, s4 Abdomen: soft, nontender, nd Extremities: no cce, normal range of motion Dionicio Higgins MD Jun 14, 2020 11:32
[2020-06-14 12:00] VITALS: BP 101/68
--- NOTE | 2020-06-14 12:25 | General Progress Note ---
Subjective Allergies: Coded Allergies: No Known Allergies (Unverified , 05/19/20) All Systems: reviewed and negative except above Subjective events noted interval notes reviewed glucose values on higher side Item Value Date Time Bedside Blood Glucose 203 mg/dl H 06/14/20 1202 Bedside Blood Glucose 123 mg/dl H 06/14/20 0702 Bedside Blood Glucose 123 mg/dl H 06/14/20 0630 Bedside Blood Glucose 200 mg/dl H 06/13/20 2100 Bedside Blood Glucose 280 mg/dl H 06/13/20 1654 Bedside Blood Glucose 219 mg/dl H 06/13/20 1157 Objective Last 24 Hour Vital Signs Date Time Temp Pulse Resp B/P (MAP) Pulse Ox O2 Delivery O2 Flow Rate FiO2 06/14/20 08:00 97.3 91 18 84/53 (63) 100 06/14/20 08:00 76 06/14/20 04:00 74 06/14/20 04:00 97.7 79 16 93/61 (72) 100 06/14/20 04:00 Nasal Cannula 4.0 Nasal Cannula 4.0 06/14/20 00:00 97.6 87 18 92/59 (70) 100 06/14/20 00:00 Nasal Cannula 4.0 Nasal Cannula 4.0 06/13/20 23:33 78 06/13/20 20:00 Nasal Cannula 4.0 Nasal Cannula 4.0 06/13/20 20:00 84 06/13/20 20:00 97.7 87 16 116/62 (80) 99 06/13/20 16:02 Nasal Cannula 4.0 Nasal Cannula 4.0 06/13/20 16:01 97.3 87 15 103/67 (79) 96 06/13/20 16:00 98 Intake and Output 06/13/20 06/14/20 19:00 07:00 Intake Total 775 ml 170 ml Output Total 161 ml Balance 614 ml 170 ml Intake Oral 720 ml 170 ml IV Total 55 ml Stool Total 11 ml Chest Tube Drainage Total 150 ml # Voids 2 # Bowel Movements 1 3 Laboratory Tests 06/13/20 16:45: POC Whole Blood Glucose 280H 06/13/20 20:57: POC Whole Blood Glucose [Pending] 06/14/20 11:48: POC Whole Blood Glucose [Pending] Height (Feet): 5 Height (Inches): 0.00 Weight (Pounds): 111 General Appearance: no apparent distress Neck: normal alignment Cardiovascular: normal rate Respiratory/Chest: decreased breath sounds Abdomen: normal bowel sounds Objective Current Medications Medications (Trade) Dose Ordered Sig/Jennie Route PRN Reason Start Time Stop Time Status Last Admin Dose Admin Acetaminophen (Tylenol) 500 mg Q6H PRN ORAL Mild Pain (Pain Scale 1-3) 05/19/20 16:45 06/18/20 16:44 Acetaminophen/ Hydrocodone Bitart ([place] 10/325) 1 tab Q4H PRN ORAL Pain Scale (6-10) 06/09/20 11:00 06/16/20 10:59 Acetaminophen/ Hydrocodone Bitart ([place] 5/325) 1 tab Q4H PRN ORAL Moderate Pain (Pain Scale 4-6) 06/09/20 11:00 06/16/20 10:59 Allopurinol (allopurinoL) 300 mg DAILY ORAL 06/06/20 11:00 07/06/20 10:59 06/14/20 08:34 Cefepime HCl 1 gm/ Dextrose 55 ml @ 110 mls/hr EVERY 12 HOURS IVPB 06/09/20 10:45 06/16/20 10:44 06/14/20 08:34 Clonidine HCl (Catapres Tab) 0.1 mg Q4H PRN ORAL SBP > 170 05/24/20 13:15 08/22/20 13:14 Dexamethasone Sodium Phosphate (Decadron 4mg/ml vial) 4 mg DAILY IVP 06/07/20 12:30 09/05/20 12:29 06/14/20 08:33 Dextrose (Dextrose 50%) 25 ml Q30M PRN IV Hypoglycemia 06/10/20 06:45 09/08/20 06:44 Dextrose (Dextrose 50%) 50 ml Q30M PRN IV Hypoglycemia 06/10/20 06:45 09/08/20 06:44 Docusate Sodium (Colace) 100 mg TWICE A DAY ORAL 05/22/20 18:00 06/21/20 17:59 06/14/20 08:34 Enoxaparin Sodium (Lovenox) 40 mg DAILY SUBQ 06/02/20 09:00 08/31/20 08:59 06/14/20 08:35 Insulin Aspart (NovoLOG) BEFORE MEALS AND HS SUBQ 06/05/20 06:30 09/03/20 06:29 06/14/20 12:02 Mirtazapine (Remeron) 7.5 mg BEDTIME ORAL 06/02/20 21:00 08/31/20 20:59 06/13/20 20:49 Morphine Sulfate (Morphine Sulfate) 2 mg Q4H PRN IVP Severe Pain (Pain Scale 7-10) 06/09/20 11:00 06/16/20 10:59 Pantoprazole (Protonix) 40 mg DAILY IVP 06/08/20 09:00 07/08/20 08:59 06/14/20 08:33 Sodium Chloride 500 ml @ 999 mls/hr Q31M PRN IV For hypotension 06/09/20 17:00 07/09/20 16:59 06/09/20 21:08 Assessment/Plan Problem List: (1) Hypoglycemia ICD Codes: E16.2 - Hypoglycemia, unspecified SNOMED: 632415556 (2) Steroid-induced hyperglycemia ICD Codes: R73.9 - Hyperglycemia, unspecified; T38.0X5A - Adverse effect of glucocorticoids and synthetic analogues, initial encounter SNOMED: 890400389 (3) ASHLEY (acute kidney injury) ICD Codes: N17.9 - Acute kidney failure, unspecified SNOMED: 7343780, 83522849 (4) Bilateral pleural effusion ICD Codes: J90 - Pleural effusion, not elsewhere classified SNOMED: 392609052 (5) Leukemia ICD Codes: C95.90 - Leukemia, unspecified not having achieved remission SNOMED: 80631238 (6) Anxiety ICD Codes: F41.9 - Anxiety disorder, unspecified SNOMED: 58235066 Status: progressing Assessment/Plan: add Levemir 5 units daily continue Novolog sliding scale hypoglycemia protocol in order Geoff Gomez MD Jun 14, 2020 12:25
--- NOTE | 2020-06-14 12:52 | Infectious Diseases Prog Note ---
Assessment/Plan Assessment/Plan IMPRESSION: Leukocytosis, improving systemic inflammatory response syndrome or sepsis, Recurrent pleural effusion, CML, Accelerated hypertension, Elevation of troponin. Hypoxemia Hyperglycemia Anxiety disorder Perioperative respiratory failure Azotemia Pneumothorax, left side RECOMMENDATION: Discontinue Cefepime Observe off antibiotic Subjective ROS Limited/Unobtainable: Yes Constitutional: Reports: no symptoms, other - feels better Respiratory: Reports: no symptoms, other - chest tubes are removed Gastrointestinal/Abdominal: Reports: no symptoms Genitourinary: Reports: no symptoms Allergies: Coded Allergies: No Known Allergies (Unverified , 05/19/20) Objective Last 24 Hour Vital Signs Date Time Temp Pulse Resp B/P (MAP) Pulse Ox O2 Delivery O2 Flow Rate FiO2 06/14/20 08:00 97.3 91 18 84/53 (63) 100 06/14/20 08:00 76 06/14/20 04:00 74 06/14/20 04:00 97.7 79 16 93/61 (72) 100 06/14/20 04:00 Nasal Cannula 4.0 Nasal Cannula 4.0 06/14/20 00:00 97.6 87 18 92/59 (70) 100 06/14/20 00:00 Nasal Cannula 4.0 Nasal Cannula 4.0 06/13/20 23:33 78 06/13/20 20:00 Nasal Cannula 4.0 Nasal Cannula 4.0 06/13/20 20:00 84 06/13/20 20:00 97.7 87 16 116/62 (80) 99 06/13/20 16:02 Nasal Cannula 4.0 Nasal Cannula 4.0 06/13/20 16:01 97.3 87 15 103/67 (79) 96 06/13/20 16:00 98 Height (Feet): 5 Height (Inches): 0.00 Weight (Pounds): 111 HEENT: mucous membranes moist Respiratory/Chest: lungs clear Cardiovascular: normal rate Abdomen: soft, non tender Extremities: no edema Neurologic/Psychiatric: alert, oriented x 3, responsive Laboratory Tests Test 06/13/20 16:45 06/13/20 20:57 06/14/20 11:48 POC Whole Blood Glucose 280 MG/DL (74-106) H Pending Pending Current Medications Medications (Trade) Dose Ordered Sig/Jennie Route PRN Reason Start Time Stop Time Status Last Admin Dose Admin Acetaminophen (Tylenol) 500 mg Q6H PRN ORAL Mild Pain (Pain Scale 1-3) 05/19/20 16:45 06/18/20 16:44 Acetaminophen/ Hydrocodone Bitart ([place] 10/325) 1 tab Q4H PRN ORAL Pain Scale (6-10) 06/09/20 11:00 06/16/20 10:59 Acetaminophen/ Hydrocodone Bitart ([place] 5/325) 1 tab Q4H PRN ORAL Moderate Pain (Pain Scale 4-6) 06/09/20 11:00 06/16/20 10:59 Allopurinol (allopurinoL) 300 mg DAILY ORAL 06/06/20 11:00 07/06/20 10:59 06/14/20 08:34 Cefepime HCl 1 gm/ Dextrose 55 ml @ 110 mls/hr EVERY 12 HOURS IVPB 06/09/20 10:45 06/16/20 10:44 06/14/20 08:34 Clonidine HCl (Catapres Tab) 0.1 mg Q4H PRN ORAL SBP > 170 05/24/20 13:15 08/22/20 13:14 Dexamethasone Sodium Phosphate (Decadron 4mg/ml vial) 4 mg DAILY IVP 06/07/20 12:30 09/05/20 12:29 06/14/20 08:33 Dextrose (Dextrose 50%) 25 ml Q30M PRN IV Hypoglycemia 06/14/20 12:30 09/12/20 12:29 Dextrose (Dextrose 50%) 50 ml Q30M PRN IV Hypoglycemia 06/14/20 12:30 09/12/20 12:29 Docusate Sodium (Colace) 100 mg TWICE A DAY ORAL 05/22/20 18:00 06/21/20 17:59 06/14/20 08:34 Enoxaparin Sodium (Lovenox) 40 mg DAILY SUBQ 06/02/20 09:00 08/31/20 08:59 06/14/20 08:35 Insulin Aspart (NovoLOG) BEFORE MEALS AND HS SUBQ 06/05/20 06:30 09/03/20 06:29 06/14/20 12:02 Insulin Detemir (Levemir) 5 units DAILY SUBQ 06/14/20 14:00 09/12/20 13:59 Mirtazapine (Remeron) 7.5 mg BEDTIME ORAL 10/6/20 21:00 08/31/20 20:59 06/13/20 20:49 Morphine Sulfate (Morphine Sulfate) 2 mg Q4H PRN IVP Severe Pain (Pain Scale 7-10) 06/09/20 11:00 06/16/20 10:59 Pantoprazole (Protonix) 40 mg DAILY IVP 06/08/20 09:00 07/08/20 08:59 06/14/20 08:33 Sodium Chloride 500 ml @ 999 mls/hr Q31M PRN IV For hypotension 06/09/20 17:00 07/09/20 16:59 06/09/20 21:08 Timothy Pennington MD Jun 14, 2020 12:52
[2020-06-14] MEDS: Levemir Flexpen SUBQ SCH (13:01)
--- NOTE | 2020-06-14 13:14 | Nephrology Progress Note ---
Assessment/Plan Problem List: (1) ASHLEY (acute kidney injury) (2) Bilateral pleural effusion (3) Leukemia Assessment Imp: Acute renal failure, with sudden jump in serum creatinine to 2.7 History of leukemia Hypertension, now hypotensive Hyponatremia on admission, improved Bilateral pleural effusion. Status post paracentesis. Elevated troponin, most likely leak. Plan June 14: Both chest tubes were discontinued yesterday. Patient clinically stable. No chemistry panel done today. Will order labs for tomorrow. June 13: Labs reviewed. Renal parameters stable. Remains on nasal cannula. Continue per pulmonary. June 12: Now in [facility]. Discussed with RN. No chemistry panel done today. On nasal cannula. Daughter in room present. Chest tubes present. Below are the lab for tomorrow. Continue per consultants. June 11: Seen in ICU. Discussed with RN. Patient was extubated. On nasal cannula. Bilateral chest tubes still in. Labs reviewed. Renal parameters improved. Electrolytes within normal limit. Continue per current management. June 10: Patient remains in ICU. Has chest tubes on the left and on the right. Remains intubated on ventilator. Due for weaning today. Labs reviewed. BUN and creatinine marli. Will change the IV to normal saline 50 cc an hour. Will discontinue Zaroxolyn. We will continue to monitor renal parameters and electrolytes. Continue per consultants. June 09: Patient now in ICU postop. Has bilateral chest tube. Intubated on ventilator. Today's labs reviewed. Continue per consultants. Continue to monitor renal parameters. June 08: Status quo. Continues on BiPAP. Due for VATS tomorrow. Start midodrine for low blood pressure. June 06: Status unchanged. Labs reviewed. Renal parameters stable. Continue per consultants. Remains full code. Remains on BiPAP. June 05: Electrolytes now normalized. Discussed with RN. Patient due for VATS surgery early next week. Continue current pulmonary support and monitor renal parameters. June 04: Potassium low. Creatinine higher. Will discontinue IV Lasix as the patient already on metolazone. Potassium supplement ordered. 250 mL of 3% saline ordered. Continue to monitor electrolytes and renal parameters. Continue per consultants. June 03: Discussed with Dr. Olson. Patient's pleural effusions continue to be a challenge. Patient on diuretics. Will watch renal parameters and electrolytes. Patient was already tapped twice. Continue per current management. June 02: No chemistry panel done today. Status unchanged. Remains on nonrebreathing mask. Will check lab tomorrow. Continue per pulmonary. June 01: Labs reviewed. Status unchanged. Remains on nonrebreathing mask. Will increase his Lasix to 40 twice daily. Stable electrolytes and renal parameters at this time. May 31: No chemistry panel done today. Patient still on nonrebreathing mask. Patient full code. Will check lab tomorrow. Patient's main issue is respiratory. May 30: Labs reviewed. Renal parameters stable. Continue per pulmonary. May 29: No chemistry panel done today. Remains on nonrebreather mask. Will order labs tomorrow. Continue per consultants. May 28: Serum creatinine up to 1.5. Remains on nonrebreather mask. Since admission had 3 thoracenteses for pleural effusion over the left and right. Respiratory status remains unstable. Continue per pulmonary. Will watch renal parameters. May 27: When seen the patient was on 100% nonrebreather mask. Renal panel within normal limit. Continue per consultants. Main problem remains respiratory. May 26: Renal parameters stable. Started on Lasix 40 mg daily. Continue to monitor renal parameters and electrolytes. Continue per consultants. May 25: Renal parameters within normal limit. Another dose of IV Lasix given. Continue to monitor electrolytes. Continue per consultants. May 24: Renal parameters normalized. Will give the Lasix 40 mg IV once. 1 dose of Kayexalate for hyperkalemia. Continue to monitor renal parameters. Previously: Today renal parameters are improved. Serum creatinine down to 1.6 from 2.7 Continue to hold lisinopril Continue to hold Lasix Half Normal saline 100 cc an hour one liter only was given yesterday Albumin bolus given yesterday, repeat as needed Monitor renal parameters Avoid nephrotoxic's Subjective ROS Limited/Unobtainable: No Constitutional: Reports: malaise Objective Objective Last 24 Hour Vital Signs Date Time Temp Pulse Resp B/P (MAP) Pulse Ox O2 Delivery O2 Flow Rate FiO2 06/14/20 08:00 97.3 91 18 84/53 (63) 100 06/14/20 08:00 76 06/14/20 04:00 74 06/14/20 04:00 97.7 79 16 93/61 (72) 100 06/14/20 04:00 Nasal Cannula 4.0 Nasal Cannula 4.0 10/18/20 00:00 97.6 87 18 92/59 (70) 100 06/14/20 00:00 Nasal Cannula 4.0 Nasal Cannula 4.0 06/13/20 23:33 78 06/13/20 20:00 Nasal Cannula 4.0 Nasal Cannula 4.0 06/13/20 20:00 84 06/13/20 20:00 97.7 87 16 116/62 (80) 99 06/13/20 16:02 Nasal Cannula 4.0 Nasal Cannula 4.0 06/13/20 16:01 97.3 87 15 103/67 (79) 96 06/13/20 16:00 98 Intake and Output 06/13/20 06/14/20 19:00 07:00 Intake Total 775 ml 170 ml Output Total 161 ml Balance 614 ml 170 ml Intake Oral 720 ml 170 ml IV Total 55 ml Stool Total 11 ml Chest Tube Drainage Total 150 ml # Voids 2 # Bowel Movements 1 3 Laboratory Tests 06/13/20 16:45: POC Whole Blood Glucose 280H 06/13/20 20:57: POC Whole Blood Glucose [Pending] 06/14/20 11:48: POC Whole Blood Glucose [Pending] Height (Feet): 5 Height (Inches): 0.00 Weight (Pounds): 111 General Appearance: no apparent distress Cardiovascular: normal rate Respiratory/Chest: decreased breath sounds, other - Chest tubes are out Objective No change Montrell Carpio MD Jun 14, 2020 13:14
--- NOTE | 2020-06-14 14:47 | Cardiac Electrophysiology PN ---
Assessment/Plan Assessment/Plan 1. Hypertension. Stable off BP meds 2. Troponin leak. No CP, ECG non ischemic and due to renal failure 3. Bilateral pleural effusions. S/P Right side thoracentesis x 2. FU by Dr. Olson. S/P Left thoracentesis again x2 last one 05/29/20. S/P VATS by Dr Joseph with bilateral chest tubes 06/09/20. Extubated and on nasal cannula Chest tubes removed 06/13/20 4. Hyponatremia. 5. CML x 5 years, sees oncologist in [facility] area DCed desatanib (also is the likely cause of pleural effusions) Per Dr Dolan 6. Acute renal failure with sudden JUMP in creatinine to 2.7. FU Dr Carpio. Better after iv fluid, Albumin and off Lisinopril. Cr down to 0.8 DW RN Subjective Subjective S/P 2 Right sided thoracentesis on 05/21/20 and 05/26/20 S/P 2 Left thoracentesis last one 05/29/20 S/P VATS by Dr. Joseph 06/09/20. Both chest tubes were removed 2 days ago. On 3 liter Nasal cannula. Objective Last 24 Hour Vital Signs Date Time Temp Pulse Resp B/P (MAP) Pulse Ox O2 Delivery O2 Flow Rate FiO2 06/14/20 12:00 90 06/14/20 12:00 98.0 84 20 101/68 (79) 98 06/14/20 12:00 98.0 84 20 101/68 (79) 98 06/14/20 12:00 90 06/14/20 08:00 97.3 91 18 84/53 (63) 100 06/14/20 08:00 97.3 80 18 100/60 (73) 100 06/14/20 08:00 76 06/14/20 08:00 76 06/14/20 04:00 74 06/14/20 04:00 97.7 79 16 93/61 (72) 100 06/14/20 04:00 Nasal Cannula 4.0 Nasal Cannula 4.0 06/14/20 00:00 97.6 87 18 92/59 (70) 100 06/14/20 00:00 Nasal Cannula 4.0 Nasal Cannula 4.0 06/13/20 23:33 78 06/13/20 20:00 Nasal Cannula 4.0 Nasal Cannula 4.0 06/13/20 20:00 84 06/13/20 20:00 97.7 87 16 116/62 (80) 99 06/13/20 16:02 Nasal Cannula 4.0 Nasal Cannula 4.0 06/13/20 16:01 97.3 87 15 103/67 (79) 96 06/13/20 16:00 98 Intake and Output 06/13/20 06/14/20 19:00 07:00 Intake Total 775 ml 170 ml Output Total 161 ml Balance 614 ml 170 ml Intake Oral 720 ml 170 ml IV Total 55 ml Stool Total 11 ml Chest Tube Drainage Total 150 ml # Voids 2 # Bowel Movements 1 3 Laboratory Tests Test 06/13/20 16:45 06/13/20 20:57 06/14/20 11:48 POC Whole Blood Glucose 280 MG/DL (74-106) H Pending Pending Objective HEAD AND NECK: No JVD. LUNGS: Decreased breath sounds.Bilateral chest tubes removed now CARDIOVASCULAR: Regular S1 and S2 and tachycardic. ABDOMEN: Soft. EXTREMITIES: No pitting edema. Cristian England MD Jun 14, 2020 14:47
[2020-06-14 16:00] VITALS: BP 98/65
[2020-06-14 20:00] VITALS: BP 91/56
--- NOTE | 2020-06-14 21:57 | General Progress Note ---
Subjective ROS Limited/Unobtainable: Yes Allergies: Coded Allergies: No Known Allergies (Unverified , 05/19/20) Objective Last 24 Hour Vital Signs Date Time Temp Pulse Resp B/P (MAP) Pulse Ox O2 Delivery O2 Flow Rate FiO2 06/14/20 20:00 Nasal Cannula 3.0 Nasal Cannula 3.0 06/14/20 20:00 98.4 83 18 91/56 (68) 98 06/14/20 19:51 81 06/14/20 16:00 79 06/14/20 16:00 Nasal Cannula 3.0 Nasal Cannula 3.0 06/14/20 16:00 98.1 82 20 98/65 (76) 100 06/14/20 12:00 90 06/14/20 12:00 98.0 84 20 101/68 (79) 98 06/14/20 12:00 98.0 84 20 101/68 (79) 98 06/14/20 12:00 90 06/14/20 12:00 Nasal Cannula 4.0 Nasal Cannula 4.0 06/14/20 08:00 97.3 91 18 84/53 (63) 100 06/14/20 08:00 97.3 80 18 100/60 (73) 100 06/14/20 08:00 76 06/14/20 08:00 Nasal Cannula 4.0 Nasal Cannula 4.0 06/14/20 08:00 76 06/14/20 04:00 74 06/14/20 04:00 97.7 79 16 93/61 (72) 100 06/14/20 04:00 Nasal Cannula 4.0 Nasal Cannula 4.0 06/14/20 00:00 97.6 87 18 92/59 (70) 100 06/14/20 00:00 Nasal Cannula 4.0 Nasal Cannula 4.0 06/13/20 23:33 78 Intake and Output 06/13/20 06/14/20 19:00 07:00 Intake Total 775 ml 170 ml Output Total 161 ml Balance 614 ml 170 ml Intake Oral 720 ml 170 ml IV Total 55 ml Stool Total 11 ml Chest Tube Drainage Total 150 ml # Voids 2 # Bowel Movements 1 3 Laboratory Tests 06/14/20 11:48: POC Whole Blood Glucose [Pending] 06/14/20 16:53: POC Whole Blood Glucose [Pending] 10/18/20 20:44: POC Whole Blood Glucose 243H Height (Feet): 5 Height (Inches): 0.00 Weight (Pounds): 111 Assessment/Plan Problem List: (1) Leukemia ICD Codes: C95.90 - Leukemia, unspecified not having achieved remission SNOMED: 69420581 (2) Bilateral pleural effusion ICD Codes: J90 - Pleural effusion, not elsewhere classified SNOMED: 987694003 Status: progressing Assessment/Plan: extubated chest tube is out weak and debilitated reviewed chart and labs s/p thoracocentesis for recurrent pleural effusion Tiara Jara MD Jun 14, 2020 21:57
[2020-06-15] VITALS (7 sets, daily range): BP systolic 80–116; BP diastolic 46–68
[2020-06-15 04:31] LABS: BASOPHILS % (AUTO) 1.6 % (0.0-2.0); EOSINOPHILS % (AUTO) 0.9 % (0.0-3.0); HEMATOCRIT 33.7 % (37.0-47.0); HEMOGLOBIN 11.4 G/DL (12.0-16.0); LYMPHOCYTES % (AUTO) 8.1 % (20.0-45.0); MEAN CORPUSCULAR VOLUME 83 FL (80-99); MONOCYTES % (AUTO) 5.6 % (1.0-10.0); NEUTROPHILS % (AUTO) 83.8 % (45.0-75.0); PLATELET COUNT 255 K/UL (150-450); RED BLOOD COUNT 4.05 M/UL (4.20-5.40); RED CELL DISTRIBUTION WIDTH 14.1 % (11.6-14.8); WHITE BLOOD COUNT 8.9 K/UL (4.8-10.8)
[2020-06-15 04:50] LABS: ALANINE AMINOTRANSFERASE 23 U/L (12-78); ALBUMIN 1.7 G/DL (3.4-5.0); ALBUMIN/GLOBULIN RATIO 0.6 (1.0-2.7); ALKALINE PHOSPHATASE 74 U/L (46-116); ANION GAP 1 mmol/L (5-15); ASPARTATE AMINO TRANSFERASE 29 U/L (15-37); BILIRUBIN,TOTAL 0.4 MG/DL (0.2-1.0); BLOOD UREA NITROGEN 26 mg/dL (7-18); CALCIUM 7.8 MG/DL (8.5-10.1); CARBON DIOXIDE 31 MMOL/L (21-32); CHLORIDE 100 MMOL/L (98-107); CREATININE 0.7 MG/DL (0.55-1.30); PHOSPHORUS 2.5 MG/DL (2.5-4.9); POTASSIUM 4.7 MMOL/L (3.5-5.1); SODIUM 132 MMOL/L (136-145)
[2020-06-15] MEDS: NovoLOG Insulin Flexpen SUBQ SCH ×4 (05:57→20:10)
--- NOTE | 2020-06-15 06:34 | General Progress Note ---
Subjective Allergies: Coded Allergies: No Known Allergies (Unverified , 05/19/20) All Systems: reviewed and negative except above Subjective events noted interval notes reviewed glucose values improved Item Value Date Time Bedside Blood Glucose 127 mg/dl H 06/15/20 0630 Bedside Blood Glucose 243 mg/dl H 06/14/20 2100 Bedside Blood Glucose 226 mg/dl H 06/14/20 1710 Bedside Blood Glucose 203 mg/dl H 06/14/20 1301 Bedside Blood Glucose 123 mg/dl H 06/14/20 0702 Bedside Blood Glucose 123 mg/dl H 06/14/20 0630 Objective Last 24 Hour Vital Signs Date Time Temp Pulse Resp B/P (MAP) Pulse Ox O2 Delivery O2 Flow Rate FiO2 06/15/20 04:00 97.3 87 20 92/63 (73) 100 06/15/20 04:00 72 06/15/20 04:00 Nasal Cannula 3.0 Nasal Cannula 3.0 06/15/20 00:00 74 06/15/20 00:00 96.8 80 19 109/62 (78) 97 06/15/20 00:00 Nasal Cannula 3.0 Nasal Cannula 3.0 06/14/20 20:00 Nasal Cannula 3.0 Nasal Cannula 3.0 06/14/20 20:00 98.4 83 18 91/56 (68) 98 06/14/20 19:51 81 06/14/20 16:00 79 06/14/20 16:00 Nasal Cannula 3.0 Nasal Cannula 3.0 06/14/20 16:00 98.1 82 20 98/65 (76) 100 06/14/20 12:00 90 06/14/20 12:00 98.0 84 20 101/68 (79) 98 06/14/20 12:00 98.0 84 20 101/68 (79) 98 06/14/20 12:00 90 06/14/20 12:00 Nasal Cannula 4.0 Nasal Cannula 4.0 06/14/20 08:00 97.3 91 18 84/53 (63) 100 06/14/20 08:00 97.3 80 18 100/60 (73) 100 06/14/20 08:00 76 06/14/20 08:00 Nasal Cannula 4.0 Nasal Cannula 4.0 06/14/20 08:00 76 Intake and Output 06/14/20 06/15/20 19:00 07:00 Intake Total 200 ml Balance 200 ml Intake Oral 200 ml # Voids 8 2 # Bowel Movements 1 Laboratory Tests 06/14/20 11:48: POC Whole Blood Glucose [Pending] 06/14/20 16:53: POC Whole Blood Glucose [Pending] 06/14/20 20:44: POC Whole Blood Glucose 243H 06/15/20 03:14: White Blood Count 8.9, Red Blood Count 4.05L, Hemoglobin 11.4L, Hematocrit 33.7L , Mean Corpuscular Volume 83, Mean Corpuscular Hemoglobin 28.3, Mean Corpuscular Hemoglobin Concent 34.0, Red Cell Distribution Width 14.1, Platelet Count 255, Mean Platelet Volume 6.6, Neutrophils (%) (Auto) 83.8H, Lymphocytes (%) (Auto) 8.1L, Monocytes (%) (Auto) 5.6, Eosinophils (%) (Auto) 0.9, Basophils (%) (Auto) 1.6, Sodium Level 132L, Potassium Level 4.7, Chloride Level 100, Carbon Dioxide Level 31, Anion Gap 1L, Blood Urea Nitrogen 26H, Creatinine 0.7, Estimat Glomerular Filtration Rate > 60, Glucose Level 126H, Calcium Level 7.8L, Phosphorus Level 2.5, Magnesium Level 2.2, Total Bilirubin 0.4, Aspartate Amino Transf (AST/SGOT) 29, Alanine Aminotransferase (ALT/SGPT) 23, Alkaline Phosphatase 74, C-Reactive Protein, Quantitative < 0.4, Total Protein 4.5L, Albumin 1.7L, Globulin 2.8, Albumin/Globulin Ratio 0.6L 06/15/20 05:53: POC Whole Blood Glucose 127H Height (Feet): 5 Height (Inches): 0.00 Weight (Pounds): 111 General Appearance: no apparent distress Neck: normal alignment Cardiovascular: normal rate Respiratory/Chest: decreased breath sounds Abdomen: normal bowel sounds Objective Current Medications Medications (Trade) Dose Ordered Sig/Jennie Route PRN Reason Start Time Stop Time Status Last Admin Dose Admin Acetaminophen (Tylenol) 500 mg Q6H PRN ORAL Mild Pain (Pain Scale 1-3) 05/19/20 16:45 06/18/20 16:44 Acetaminophen/ Hydrocodone Bitart ([place] 10) 1 tab Q4H PRN ORAL Pain Scale (6-10) 06/09/20 11:00 06/16/20 10:59 Acetaminophen/ Hydrocodone Bitart ([place] 5/325) 1 tab Q4H PRN ORAL Moderate Pain (Pain Scale 4-6) 06/09/20 11:00 06/16/20 10:59 Allopurinol (allopurinoL) 300 mg DAILY ORAL 06/06/20 11:00 07/06/20 10:59 06/14/20 08:34 Clonidine HCl (Catapres Tab) 0.1 mg Q4H PRN ORAL SBP > 170 05/24/20 13:15 08/22/20 13:14 Dexamethasone Sodium Phosphate (Decadron 4mg/ml vial) 4 mg DAILY IVP 06/07/20 12:30 09/05/20 12:29 06/14/20 08:33 Dextrose (Dextrose 50%) 25 ml Q30M PRN IV Hypoglycemia 06/14/20 12:30 09/12/20 12:29 Dextrose (Dextrose 50%) 50 ml Q30M PRN IV Hypoglycemia 06/14/20 12:30 09/12/20 12:29 Docusate Sodium (Colace) 100 mg TWICE A DAY ORAL 05/22/20 18:00 06/21/20 17:59 06/14/20 17:10 Enoxaparin Sodium (Lovenox) 40 mg DAILY SUBQ 06/02/20 09:00 08/31/20 08:59 06/14/20 08:35 Insulin Aspart (NovoLOG) BEFORE MEALS AND HS SUBQ 06/05/20 06:30 09/03/20 06:29 06/14/20 20:47 Insulin Detemir (Levemir) 5 units DAILY SUBQ 06/14/20 14:00 09/12/20 13:59 06/14/20 13:01 Mirtazapine (Remeron) 7.5 mg BEDTIME ORAL 06/02/20 21:00 08/31/20 20:59 06/14/20 20:45 Morphine Sulfate (Morphine Sulfate) 2 mg Q4H PRN IVP Severe Pain (Pain Scale 7-10) 06/09/20 11:00 06/16/20 10:59 Pantoprazole (Protonix) 40 mg DAILY IVP 06/08/20 09:00 07/08/20 08:59 06/14/20 08:33 Sodium Chloride 500 ml @ 999 mls/hr Q31M PRN IV For hypotension 06/09/20 17:00 07/09/20 16:59 06/09/20 21:08 Assessment/Plan Problem List: (1) Hypoglycemia ICD Codes: E16.2 - Hypoglycemia, unspecified SNOMED: 343414869 (2) Steroid-induced hyperglycemia ICD Codes: R73.9 - Hyperglycemia, unspecified; T38.0X5A - Adverse effect of glucocorticoids and synthetic analogues, initial encounter SNOMED: 927381559 (3) ASHLEY (acute kidney injury) ICD Codes: N17.9 - Acute kidney failure, unspecified SNOMED: 1611189, 88170459 (4) Bilateral pleural effusion ICD Codes: J90 - Pleural effusion, not elsewhere classified SNOMED: 144961368 (5) Leukemia ICD Codes: C95.90 - Leukemia, unspecified not having achieved remission SNOMED: 37177050 (6) Anxiety ICD Codes: F41.9 - Anxiety disorder, unspecified SNOMED: 24423437 Status: progressing Assessment/Plan: continue Levemir 5 units daily continue Novolog sliding scale hypoglycemia protocol in order Geoff Gomez MD Jun 15, 2020 06:34
--- NOTE | 2020-06-15 06:52 | Hematology/Onc Progress Note ---
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 Joseph has accessed--> for biospy pleural->pleural fluid neg for malignancy 06/11 --> 06/[address]-->remove as needed --> imaging q2-3 days # HTN --> hydralazine and lisinopril --> sbp goal <140 # Dehydration --> goal of euvolemia # Elevated ddimer --> duplex lower ext r/o dvt==>neg # Dvt ppx lovenox sq Appreciate consultation and zachariah RN Subjective HEENT: Denies: no symptoms, eye pain, blurred vision, tearing, double vision, ear pain, ear discharge, nose pain, nose congestion, throat pain, throat swelling, mouth pain, mouth swelling, other Cardiovascular: Denies: no symptoms, chest pain, edema, irregular heart rate, lightheadedness, palpitations, syncope, other Respiratory: Denies: no symptoms, cough, shortness of breath, SOB with excertion, SOB at rest, sputum, wheezing, other Gastrointestinal/Abdominal: Denies: no symptoms, abdomen distended, abdominal pain, black stools, tarry stools, blood in stool, constipated, diarrhea, dif ficulty swallowing, nausea, poor appetite, poor fluid intake, rectal bleeding, vomiting, other Genitourinary: Denies: no symptoms, burning, discharge, frequency, flank pain, hematuria, incontinence, pain, urgency, other Endocrine: Denies: no symptoms, excessive sweating, flushing, intolerance to cold, intolerance to heat, increased hunger, increased thirst, increased urine, unexplained weight gain, unexplained weight loss, other Hematologic/Lymphatic: Denies: no symptoms, anemia, easy bleeding, easy bruising, adenopathy, other Allergies: Coded Allergies: No Known Allergies (Unverified , 05/19/20) Subjective 05/21 labs are noted, no bleeding, with pleural effusions due to desatanbib, s/p thora 05/22 labs are noted, no bleeding, on bipap, i dw her today to stop her med at o nce 05/24 wbc is improved, continue on ctx for one more day per id, bipap 05/26 have ordered for repeat cxr this am to reeval pleural effusions, labs noted 05/27 with b/l pleural effusions, aware from pulm, thora prn 05/28 has been refusing scds, thus will start lovenox today, breathing better s/p thora 05/29 with nonrebreather, for thora today, no night sweats, meds noted 05/31 remains on bipap, meds reviewed, off desatanib, worse effusion r>l 06/01 on bipap this am, labs pending for am 06/02 unable to wean off facemask, requiring it, will dw sister today 06/03 labs reviewed, meds noted, continues to be bipap support 06/04 no aspiration, is comfortable, meds reviewed, no bleeding 06/05 dw pulm yes, may need ct surg eval, chest tube, started steriods 06/06: labs reviewed no acute events overnight. 06/07 comfortable, no bleeding, meds reviewed, is on bipap still 06/08 labs reviewed, imaging noted, is on bipap this am 06/09 wbc higher, for procedure today, by cts, may get pleural biopsy 06/10 ct placed yest, today in am was intubated, but now extubated on nc in afternoon, zachariah Rn 06/11 labs reviewed, no bleeding, remains in the icu, wbc 19 06/12 breathing has improved,cbc ordered, no bleeding, labs noted 06/14 labs reviewed, no night sweats, no bleeding, meds noted 06/15 labs noted, no bleeding, dw rn, no major changes, dw patient, left chest tube Objective Objective Current Medications Medications (Trade) Dose Ordered Sig/Jennie Route PRN Reason Start Time Stop Time Status Last Admin Dose Admin Acetaminophen (Tylenol) 500 mg Q6H PRN ORAL Mild Pain (Pain Scale 1-3) 05/19/20 16:45 06/18/20 16:44 Acetaminophen/ Hydrocodone Bitart ([place] 10/325) 1 tab Q4H PRN ORAL Pain Scale (6-10) 06/09/20 11:00 06/16/20 10:59 Acetaminophen/ Hydrocodone Bitart ([place] 5/325) 1 tab Q4H PRN ORAL Moderate Pain (Pain Scale 4-6) 06/09/20 11:00 06/16/20 10:59 Allopurinol (allopurinoL) 300 mg DAILY ORAL 06/06/20 11:00 07/06/20 10:59 06/14/20 08:34 Clonidine HCl (Catapres Tab) 0.1 mg Q4H PRN ORAL SBP > 170 05/24/20 13:15 08/22/20 13:14 Dexamethasone Sodium Phosphate (Decadron 4mg/ml vial) 4 mg DAILY IVP 06/07/20 12:30 09/05/20 12:29 06/14/20 08:33 Dextrose (Dextrose 50%) 25 ml Q30M PRN IV Hypoglycemia 06/14/20 12:30 09/12/20 12:29 Dextrose (Dextrose 50%) 50 ml Q30M PRN IV Hypoglycemia 06/14/20 12:30 09/12/20 12:29 Docusate Sodium (Colace) 100 mg TWICE A DAY ORAL 05/22/20 18:00 06/21/20 17:59 06/14/20 17:10 Enoxaparin Sodium (Lovenox) 40 mg DAILY SUBQ 06/02/20 09:00 08/31/20 08:59 06/14/20 08:35 Insulin Aspart (NovoLOG) BEFORE MEALS AND HS SUBQ 06/05/20 06:30 09/03/20 06:29 06/14/20 20:47 Insulin Detemir (Levemir) 5 units DAILY SUBQ 06/14/20 14:00 09/12/20 13:59 06/14/20 13:01 Mirtazapine (Remeron) 7.5 mg BEDTIME ORAL 06/02/20 21:00 08/31/20 20:59 06/14/20 20:45 Morphine Sulfate (Morphine Sulfate) 2 mg Q4H PRN IVP Severe Pain (Pain Scale 7-10) 06/09/20 11:00 06/16/20 10:59 Pantoprazole (Protonix) 40 mg DAILY IVP 06/08/20 09:00 07/08/20 08:59 06/14/20 08:33 Sodium Chloride 500 ml @ 999 mls/hr Q31M PRN IV For hypotension 06/09/20 17:00 07/09/20 16:59 06/09/20 21:08 Last 24 Hour Vital Signs Date Time Temp Pulse Resp B/P (MAP) Pulse Ox O2 Delivery O2 Flow Rate FiO2 06/15/20 04:00 97.3 87 20 92/63 (73) 100 06/15/20 04:00 72 06/15/20 04:00 Nasal Cannula 3.0 Nasal Cannula 3.0 06/15/20 00:00 74 06/15/20 00:00 96.8 80 19 109/62 (78) 97 06/15/20 00:00 Nasal Cannula 3.0 Nasal Cannula 3.0 06/14/20 20:00 Nasal Cannula 3.0 Nasal Cannula 3.0 06/14/20 20:00 98.4 83 18 91/56 (68) 98 06/14/20 19:51 81 06/14/20 16:00 79 06/14/20 16:00 Nasal Cannula 3.0 Nasal Cannula 3.0 06/14/20 16:00 98.1 82 20 98/65 (76) 100 06/14/20 12:00 90 06/14/20 12:00 98.0 84 20 101/68 (79) 98 06/14/20 12:00 98.0 84 20 101/68 (79) 98 06/14/20 12:00 90 06/14/20 12:00 Nasal Cannula 4.0 Nasal Cannula 4.0 06/14/20 08:00 97.3 91 18 84/53 (63) 100 06/14/20 08:00 97.3 80 18 100/60 (73) 100 06/14/20 08:00 76 06/14/20 08:00 Nasal Cannula 4.0 Nasal Cannula 4.0 06/14/20 08:00 76 06/14/20 04:00 74 06/14/20 04:00 97.7 79 16 93/61 (72) 100 06/14/20 04:00 Nasal Cannula 4.0 Nasal Cannula 4.0 06/14/20 00:00 97.6 87 18 92/59 (70) 100 06/14/20 00:00 Nasal Cannula 4.0 Nasal Cannula 4.0 06/13/20 23:33 78 06/13/20 20:00 Nasal Cannula 4.0 Nasal Cannula 4.0 06/13/20 20:00 84 06/13/20 20:00 97.7 87 16 116/62 (80) 99 06/13/20 16:02 Nasal Cannula 4.0 Nasal Cannula 4.0 06/13/20 16:01 97.3 87 15 103/67 (79) 96 06/13/20 16:00 98 06/13/20 12:00 Nasal Cannula 4.0 Nasal Cannula 4.0 06/13/20 12:00 78 06/13/20 11:58 97.1 98 15 115/75 (88) 96 06/13/20 08:00 92 06/13/20 08:00 Nasal Cannula 4.0 Nasal Cannula 4.0 06/13/20 08:00 97.0 86 15 93/57 (69) 100 06/13/20 08:00 4.0 Intake and Output 06/14/20 06/15/20 19:00 07:00 Intake Total 200 ml Balance 200 ml Intake Oral 200 ml # Voids 8 2 # Bowel Movements 1 Labs Test 06/12/20 11:41 06/12/20 12:20 06/13/20 05:45 06/13/20 11:47 POC Whole Blood Glucose 214 MG/DL (74-106) 219 MG/DL (74-106) White Blood Count 19.0 K/UL (4.8-10.8) 11.2 K/UL (4.8-10.8) Red Blood Count 4.60 M/UL (4.20-5.40) 4.11 M/UL (4.20-5.40) Hemoglobin 12.9 G/DL (12.0-16.0) 11.7 G/DL (12.0-16.0) Hematocrit 39.3 % (37.0-47.0) 34.0 % (37.0-47.0) Mean Corpuscular Volume 85 FL (80-99) 83 FL (80-99) Mean Corpuscular Hemoglobin 28.0 PG (27.0-31.0) 28.4 PG (27.0-31.0) Mean Corpuscular Hemoglobin Concent 32.7 G/DL (32.0-36.0) 34.3 G/DL (32.0-36.0) Red Cell Distribution Width 14.8 % (11.6-14.8) 14.1 % (11.6-14.8) Platelet Count 305 K/UL (150-450) 245 K/UL (150-450) Mean Platelet Volume 6.6 FL (6.5-10.1) 6.4 FL (6.5-10.1) Neutrophils (%) (Auto) % (45.0-75.0) % (45.0-75.0) Lymphocytes (%) (Auto) % (20.0-45.0) % (20.0-45.0) Monocytes (%) (Auto) % (1.0-10.0) % (1.0-10.0) Eosinophils (%) (Auto) % (0.0-3.0) % (0.0-3.0) Basophils (%) (Auto) % (0.0-2.0) % (0.0-2.0) Differential Total Cells Counted 100 100 Neutrophils % (Manual) 95 % (45-75) 88 % (45-75) Lymphocytes % (Manual) 3 % (20-45) 7 % (20-45) Monocytes % (Manual) 2 % (1-10) 5 % (1-10) Eosinophils % (Manual) 0 % (0-3) 0 % (0-3) Basophils % (Manual) 0 % (0-2) 0 % (0-2) Band Neutrophils 0 % (0-8) 0 % (0-8) Platelet Estimate Adequate Adequate Platelet Morphology Normal Normal Anisocytosis 1+ 1+ Hypochromasia 1+ Sodium Level 136 MMOL/L (136-145) Potassium Level 4.2 MMOL/L (3.5-5.1) Chloride Level 103 MMOL/L (98-107) Carbon Dioxide Level 29 MMOL/L (21-32) Anion Gap 4 mmol/L (5-15) Blood Urea Nitrogen 39 mg/dL (7-18) Creatinine 0.8 MG/DL (0.55-1.30) Estimat Glomerular Filtration Rate > 60 mL/min (>60) Glucose Level 129 MG/DL (74-106) Calcium Level 7.6 MG/DL (8.5-10.1) Phosphorus Level 2.5 MG/DL (2.5-4.9) Magnesium Level 2.3 MG/DL (1.8-2.4) Total Bilirubin 0.3 MG/DL (0.2-1.0) Aspartate Amino Transf (AST/SGOT) 26 U/L (15-37) Alanine Aminotransferase (ALT/SGPT) 11 U/L (12-78) Alkaline Phosphatase 85 U/L (46-116) C-Reactive Protein, Quantitative 1.4 mg/dL (0.00-0.90) Pro-B-Type Natriuretic Peptide 40305 pg/mL (0-125) Total Protein 4.4 G/DL (6.4-8.2) Albumin 1.6 G/DL (3.4-5.0) Globulin 2.8 g/dL Albumin/Globulin Ratio 0.6 (1.0-2.7) Test 06/13/20 16:45 06/13/20 20:57 06/14/20 11:48 06/14/20 16:53 POC Whole Blood Glucose 280 MG/DL (74-106) Test 06/14/20 20:44 06/15/20 03:14 06/15/20 05:53 POC Whole Blood Glucose 243 MG/DL (74-106) 127 MG/DL (74-106) White Blood Count 8.9 K/UL (4.8-10.8) Red Blood Count 4.05 M/UL (4.20-5.40) Hemoglobin 11.4 G/DL (12.0-16.0) Hematocrit 33.7 % (37.0-47.0) Mean Corpuscular Volume 83 FL (80-99) Mean Corpuscular Hemoglobin 28.3 PG (27.0-31.0) Mean Corpuscular Hemoglobin Concent 34.0 G/DL (32.0-36.0) Red Cell Distribution Width 14.1 % (11.6-14.8) Platelet Count 255 K/UL (150-450) Mean Platelet Volume 6.6 FL (6.5-10.1) Neutrophils (%) (Auto) 83.8 % (45.0-75.0) Lymphocytes (%) (Auto) 8.1 % (20.0-45.0) Monocytes (%) (Auto) 5.6 % (1.0-10.0) Eosinophils (%) (Auto) 0.9 % (0.0-3.0) Basophils (%) (Auto) 1.6 % (0.0-2.0) Sodium Level 132 MMOL/L (136-145) Potassium Level 4.7 MMOL/L (3.5-5.1) Chloride Level 100 MMOL/L (98-107) Carbon Dioxide Level 31 MMOL/L (21-32) Anion Gap 1 mmol/L (5-15) Blood Urea Nitrogen 26 mg/dL (7-18) Creatinine 0.7 MG/DL (0.55-1.30) Estimat Glomerular Filtration Rate > 60 mL/min (>60) Glucose Level 126 MG/DL (74-106) Calcium Level 7.8 MG/DL (8.5-10.1) Phosphorus Level 2.5 MG/DL (2.5-4.9) Magnesium Level 2.2 MG/DL (1.8-2.4) Total Bilirubin 0.4 MG/DL (0.2-1.0) Aspartate Amino Transf (AST/SGOT) 29 U/L (15-37) Alanine Aminotransferase (ALT/SGPT) 23 U/L (12-78) Alkaline Phosphatase 74 U/L (46-116) C-Reactive Protein, Quantitative < 0.4 mg/dL (0.00-0.90) Total Protein 4.5 G/DL (6.4-8.2) Albumin 1.7 G/DL (3.4-5.0) Globulin 2.8 g/dL Albumin/Globulin Ratio 0.6 (1.0-2.7) Height (Feet): 5 Height (Inches): 0.00 Weight (Pounds): 111 Objective Physical Exam: Vitals: reviewed General: NAD HEENT: nc, at Neck: supple Chest: clear breath sounds bilaterally ++ left sided chest tube Cardiovascular: RRR, no s3, s4 Abdomen: soft, nontender, nd Extremities: no cce, normal range of motion Dionicio Higgins MD Jun 15, 2020 06:52
[2020-06-15] MEDS: Pantoprazole Inj IVP SCH (08:38)
[2020-06-15] MEDS: Docusate 100mg cap ORAL SCH ×2 (08:38→17:10)
[2020-06-15] MEDS: Levemir Flexpen SUBQ SCH (08:40)
[2020-06-15] MEDS: Enoxaparin 40mg Inj SUBQ SCH (08:40)
--- NOTE | 2020-06-15 10:22 | Nephrology Progress Note ---
Assessment/Plan Problem List: (1) ASHLEY (acute kidney injury) (2) Bilateral pleural effusion (3) Leukemia Assessment Imp: Acute renal failure, with sudden jump in serum creatinine to 2.7 History of leukemia Hypertension, now hypotensive Hyponatremia on admission, improved Bilateral pleural effusion. Status post paracentesis. Elevated troponin, most likely leak. Plan June 15: Patient appears stable. Labs reviewed. Serum sodium 132. Urine studies ordered. Uric acid and serum osmolarity to be added to today's labs. Continue rest. June 14: Both chest tubes were discontinued yesterday. Patient clinically stable. No chemistry panel done today. Will order labs for tomorrow. June 13: Labs reviewed. Renal parameters stable. Remains on nasal cannula. Continue per pulmonary. June 12: Now in [facility]. Discussed with RN. No chemistry panel done today. On nasal cannula. Daughter in room present. Chest tubes present. Below are the lab for tomorrow. Continue per consultants. June 11: Seen in ICU. Discussed with RN. Patient was extubated. On nasal cannula. Bilateral chest tubes still in. Labs reviewed. Renal parameters improved. Electrolytes within normal limit. Continue per current management. June 10: Patient remains in ICU. Has chest tubes on the left and on the right. Remains intubated on ventilator. Due for weaning today. Labs reviewed. BUN and creatinine marli. Will change the IV to normal saline 50 cc an hour. Will discontinue Zaroxolyn. We will continue to monitor renal parameters and electrolytes. Continue per consultants. June 09: Patient now in ICU postop. Has bilateral chest tube. Intubated on ventilator. Today's labs reviewed. Continue per consultants. Continue to monitor renal parameters. June 08: Status quo. Continues on BiPAP. Due for VATS tomorrow. Start midodrine for low blood pressure. June 06: Status unchanged. Labs reviewed. Renal parameters stable. Continue per consultants. Remains full code. Remains on BiPAP. June 05: Electrolytes now normalized. Discussed with RN. Patient due for VATS surgery early next week. Continue current pulmonary support and monitor renal parameters. June 04: Potassium low. Creatinine higher. Will discontinue IV Lasix as the patient already on metolazone. Potassium supplement ordered. 250 mL of 3% saline ordered. Continue to monitor electrolytes and renal parameters. Continue per consultants. June 03: Discussed with Dr. Tirmizi. Patient's pleural effusions continue to be a challenge. Patient on diuretics. Will watch renal parameters and electrolytes. Patient was already tapped twice. Continue per current management. June 02: No chemistry panel done today. Status unchanged. Remains on nonrebreathing mask. Will check lab tomorrow. Continue per pulmonary. June 01: Labs reviewed. Status unchanged. Remains on nonrebreathing mask. Will increase his Lasix to 40 twice daily. Stable electrolytes and renal parameters at this time. May 31: No chemistry panel done today. Patient still on nonrebreathing mask. Patient full code. Will check lab tomorrow. Patient's main issue is respiratory. May 30: Labs reviewed. Renal parameters stable. Continue per pulmonary. May 29: No chemistry panel done today. Remains on nonrebreather mask. Will order labs tomorrow. Continue per consultants. May 28: Serum creatinine up to 1.5. Remains on nonrebreather mask. Since admission had 3 thoracenteses for pleural effusion over the left and right. Respiratory status remains unstable. Continue per pulmonary. Will watch renal parameters. May 27: When seen the patient was on 100% nonrebreather mask. Renal panel within normal limit. Continue per consultants. Main problem remains respiratory. May 26: Renal parameters stable. Started on Lasix 40 mg daily. Continue to monitor renal parameters and electrolytes. Continue per consultants. May 25: Renal parameters within normal limit. Another dose of IV Lasix given. Continue to monitor electrolytes. Continue per consultants. May 24: Renal parameters normalized. Will give the Lasix 40 mg IV once. 1 dose of Kayexalate for hyperkalemia. Continue to monitor renal parameters. Previously: Today renal parameters are improved. Serum creatinine down to 1.6 from 2.7 Continue to hold lisinopril Continue to hold Lasix Half Normal saline 100 cc an hour one liter only was given yesterday Albumin bolus given yesterday, repeat as needed Monitor renal parameters Avoid nephrotoxic's Subjective ROS Limited/Unobtainable: No Constitutional: Reports: malaise Objective Objective Last 24 Hour Vital Signs Date Time Temp Pulse Resp B/P (MAP) Pulse Ox O2 Delivery O2 Flow Rate FiO2 06/15/20 08:00 74 06/15/20 08:00 97.2 86 23 107/68 (81) 90 06/15/20 04:00 97.3 87 20 92/63 (73) 100 06/15/20 04:00 72 06/15/20 04:00 Nasal Cannula 3.0 Nasal Cannula 3.0 06/15/20 00:00 74 06/15/20 00:00 96.8 80 19 109/62 (78) 97 06/15/20 00:00 Nasal Cannula 3.0 Nasal Cannula 3.0 06/14/20 20:00 Nasal Cannula 3.0 Nasal Cannula 3.0 06/14/20 20:00 98.4 83 18 91/56 (68) 98 06/14/20 19:51 81 06/14/20 16:00 79 06/14/20 16:00 Nasal Cannula 3.0 Nasal Cannula 3.0 06/14/20 16:00 98.1 82 20 98/65 (76) 100 06/14/20 12:00 90 06/14/20 12:00 98.0 84 20 101/68 (79) 98 06/14/20 12:00 98.0 84 20 101/68 (79) 98 06/14/20 12:00 90 06/14/20 12:00 Nasal Cannula 4.0 Nasal Cannula 4.0 Intake and Output 06/14/20 06/15/20 19:00 07:00 Intake Total 200 ml Balance 200 ml Intake Oral 200 ml # Voids 8 2 # Bowel Movements 1 Laboratory Tests 06/14/20 11:48: POC Whole Blood Glucose [Pending] 06/14/20 16:53: POC Whole Blood Glucose [Pending] 06/14/20 20:44: POC Whole Blood Glucose 243H 06/15/20 03:14: White Blood Count 8.9, Red Blood Count 4.05L, Hemoglobin 11.4L, Hematocrit 33.7L , Mean Corpuscular Volume 83, Mean Corpuscular Hemoglobin 28.3, Mean Corpuscular Hemoglobin Concent 34.0, Red Cell Distribution Width 14.1, Platelet Count 255, Mean Platelet Volume 6.6, Neutrophils (%) (Auto) 83.8H, Lymphocytes (%) (Auto) 8.1L, Monocytes (%) (Auto) 5.6, Eosinophils (%) (Auto) 0.9, Basophils (%) (Auto) 1.6, Sodium Level 132L, Potassium Level 4.7, Chloride Level 100, Carbon Dioxide Level 31, Anion Gap 1L, Blood Urea Nitrogen 26H, Creatinine 0.7, Estimat Glomerular Filtration Rate > 60, Glucose Level 126H, Calcium Level 7.8L, Phosphorus Level 2.5, Magnesium Level 2.2, Total Bilirubin 0.4, Aspartate Amino Transf (AST/SGOT) 29, Alanine Aminotransferase (ALT/SGPT) 23, Alkaline Phosphatase 74, C-Reactive Protein, Quantitative < 0.4, Total Protein 4.5L, Albumin 1.7L, Globulin 2.8, Albumin/Globulin Ratio 0.6L 06/15/20 05:53: POC Whole Blood Glucose 127H Height (Feet): 5 Height (Inches): 0.00 Weight (Pounds): 111 General Appearance: no apparent distress Cardiovascular: normal rate - Rate in the 80s Respiratory/Chest: decreased breath sounds Abdomen: soft Objective No change Montrell Carpio MD Jun 15, 2020 10:22
--- NOTE | 2020-06-15 10:23 | Pulmonology Progress Note ---
Subjective ROS Limited/Unobtainable: No Interval Events: S/p VATS, Pleurex and lung biopsy Constitutional: Reports: no symptoms, other - feels better HEENT: Repors: no symptoms Respiratory: Reports: dry cough Gastrointestinal/Abdominal: Reports: no symptoms Genitourinary: Reports: no symptoms Neurologic: Reports: no symptoms Musculoskeletal: Denies: pain Allergies: Coded Allergies: No Known Allergies (Unverified , 05/19/20) All Systems: reviewed and negative except above Objective Last 24 Hour Vital Signs Date Time Temp Pulse Resp B/P (MAP) Pulse Ox O2 Delivery O2 Flow Rate FiO2 06/15/20 08:00 74 06/15/20 08:00 97.2 86 23 107/68 (81) 90 06/15/20 04:00 97.3 87 20 92/63 (73) 100 06/15/20 04:00 72 06/15/20 04:00 Nasal Cannula 3.0 Nasal Cannula 3.0 06/15/20 00:00 74 06/15/20 00:00 96.8 80 19 109/62 (78) 97 06/15/20 00:00 Nasal Cannula 3.0 Nasal Cannula 3.0 06/14/20 20:00 Nasal Cannula 3.0 Nasal Cannula 3.0 06/14/20 20:00 98.4 83 18 91/56 (68) 98 06/14/20 19:51 81 06/14/20 16:00 79 06/14/20 16:00 Nasal Cannula 3.0 Nasal Cannula 3.0 06/14/20 16:00 98.1 82 20 98/65 (76) 100 06/14/20 12:00 90 06/14/20 12:00 98.0 84 20 101/68 (79) 98 06/14/20 12:00 98.0 84 20 101/68 (79) 98 06/14/20 12:00 90 06/14/20 12:00 Nasal Cannula 4.0 Nasal Cannula 4.0 Intake and Output 06/14/20 06/15/20 19:00 07:00 Intake Total 200 ml Balance 200 ml Intake Oral 200 ml # Voids 8 2 # Bowel Movements 1 General Appearance: no acute distress Respiratory: chest wall non-tender, normal breath sounds, no respiratory distress, no accessory muscle use, decreased breath sounds Cardiovascular: normal peripheral pulses, normal rate Abdomen: normal bowel sounds Extremities: no cyanosis, no clubbing, no edema Neurologic: oriented x 3 Laboratory Tests 06/14/20 11:48: POC Whole Blood Glucose [Pending] 06/14/20 16:53: POC Whole Blood Glucose [Pending] 06/14/20 20:44: POC Whole Blood Glucose 243H 06/15/20 03:14: White Blood Count 8.9, Red Blood Count 4.05L, Hemoglobin 11.4L, Hematocrit 33.7L , Mean Corpuscular Volume 83, Mean Corpuscular Hemoglobin 28.3, Mean Corpuscular Hemoglobin Concent 34.0, Red Cell Distribution Width 14.1, Platelet Count 255, Mean Platelet Volume 6.6, Neutrophils (%) (Auto) 83.8H, Lymphocytes (%) (Auto) 8.1L, Monocytes (%) (Auto) 5.6, Eosinophils (%) (Auto) 0.9, Basophils (%) (Auto) 1.6, Sodium Level 132L, Potassium Level 4.7, Chloride Level 100, Carbon Dioxide Level 31, Anion Gap 1L, Blood Urea Nitrogen 26H, Creatinine 0.7, Estimat Glomerular Filtration Rate > 60, Glucose Level 126H, Calcium Level 7.8L, Phosphorus Level 2.5, Magnesium Level 2.2, Total Bilirubin 0.4, Aspartate Amino Transf (AST/SGOT) 29, Alanine Aminotransferase (ALT/SGPT) 23, Alkaline Phosphatase 74, C-Reactive Protein, Quantitative < 0.4, Total Protein 4.5L, Albumin 1.7L, Globulin 2.8, Albumin/Globulin Ratio 0.6L 06/15/20 05:53: POC Whole Blood Glucose 127H Current Medications Medications (Trade) Dose Ordered Sig/Jennie Route PRN Reason Start Time Stop Time Status Last Admin Dose Admin Acetaminophen (Tylenol) 500 mg Q6H PRN ORAL Mild Pain (Pain Scale 1-3) 05/19/20 16:45 06/18/20 16:44 Acetaminophen/ Hydrocodone Bitart ([place] 10/325) 1 tab Q4H PRN ORAL Pain Scale (6-10) 06/09/20 11:00 06/16/20 10:59 Acetaminophen/ Hydrocodone Bitart ([place] 5/325) 1 tab Q4H PRN ORAL Moderate Pain (Pain Scale 4-6) 06/09/20 11:00 06/16/20 10:59 Allopurinol (allopurinoL) 300 mg DAILY ORAL 06/06/20 11:00 07/06/20 10:59 06/15/20 08:38 Clonidine HCl (Catapres Tab) 0.1 mg Q4H PRN ORAL SBP > 170 05/24/20 13:15 08/22/20 13:14 Dexamethasone Sodium Phosphate (Decadron 4mg/ml vial) 4 mg DAILY IVP 06/07/20 12:30 09/05/20 12:29 06/15/20 08:38 Dextrose (Dextrose 50%) 25 ml Q30M PRN IV Hypoglycemia 06/14/20 12:30 09/12/20 12:29 Dextrose (Dextrose 50%) 50 ml Q30M PRN IV Hypoglycemia 06/14/20 12:30 09/12/20 12:29 Docusate Sodium (Colace) 100 mg TWICE A DAY ORAL 05/22/20 18:00 06/21/20 17:59 06/15/20 08:38 Enoxaparin Sodium (Lovenox) 40 mg DAILY SUBQ 06/02/20 09:00 08/31/20 08:59 06/15/20 08:40 Insulin Aspart (NovoLOG) BEFORE MEALS AND HS SUBQ 06/05/20 06:30 09/03/20 06:29 06/14/20 20:47 Insulin Detemir (Levemir) 5 units DAILY SUBQ 06/14/20 14:00 09/12/20 13:59 06/15/20 08:40 Mirtazapine (Remeron) 7.5 mg BEDTIME ORAL 06/02/20 21:00 08/31/20 20:59 06/14/20 20:45 Morphine Sulfate (Morphine Sulfate) 2 mg Q4H PRN IVP Severe Pain (Pain Scale 7-10) 06/09/20 11:00 06/16/20 10:59 Pantoprazole (Protonix) 40 mg DAILY IVP 06/08/20 09:00 07/08/20 08:59 06/15/20 08:38 Sodium Chloride 500 ml @ 999 mls/hr Q31M PRN IV For hypotension 06/09/20 17:00 07/09/20 16:59 06/09/20 21:08 Assessment/Plan Assessment/Plan IMPRESSION: 1. History of CML, on dasatinib. 2. Possible pneumonia. 3. Large pleural effusion, s/p B thoracentesis. 4. Hypertension. 5. Elevated D-dimer DISCUSSION: S/p VATS, B Pleurex and lung biopsy Pleurex in place On 4L/min O2 Off IV fluids DC planning for home in [place] after family training today DVT prophylaxis Michelet Hernandez Omar Syed MD Jun 15, 2020 10:23
--- NOTE | 2020-06-15 12:23 | Infectious Diseases Prog Note ---
Assessment/Plan Assessment/Plan IMPRESSION: Leukocytosis, resolved systemic inflammatory response syndrome or sepsis, Recurrent pleural effusion, CML, Accelerated hypertension, Elevation of troponin. Hypoxemia Hyperglycemia Anxiety disorder Perioperative respiratory failure Azotemia RECOMMENDATION: Observe off antibiotic Subjective ROS Limited/Unobtainable: Yes Constitutional: Reports: no symptoms Respiratory: Reports: no symptoms Cardiovascular: Reports: no symptoms Gastrointestinal/Abdominal: Reports: no symptoms Genitourinary: Reports: no symptoms Allergies: Coded Allergies: No Known Allergies (Unverified , 05/19/20) Objective Last 24 Hour Vital Signs Date Time Temp Pulse Resp B/P (MAP) Pulse Ox O2 Delivery O2 Flow Rate FiO2 06/15/20 08:00 74 06/15/20 08:00 97.2 86 23 107/68 (81) 90 06/15/20 08:00 97.2 86 23 107/68 (81) 90 06/15/20 08:00 Nasal Cannula 3.0 Nasal Cannula 3.0 06/15/20 08:00 74 06/15/20 04:00 97.3 87 20 92/63 (73) 100 06/15/20 04:00 72 06/15/20 04:00 Nasal Cannula 3.0 Nasal Cannula 3.0 06/15/20 00:00 74 06/15/20 00:00 96.8 80 19 109/62 (78) 97 06/15/20 00:00 Nasal Cannula 3.0 Nasal Cannula 3.0 06/14/20 20:00 Nasal Cannula 3.0 Nasal Cannula 3.0 06/14/20 20:00 98.4 83 18 91/56 (68) 98 06/14/20 19:51 81 06/14/20 16:00 79 06/14/20 16:00 Nasal Cannula 3.0 Nasal Cannula 3.0 06/14/20 16:00 98.1 82 20 98/65 (76) 100 Height (Feet): 5 Height (Inches): 0.00 Weight (Pounds): 111 HEENT: mucous membranes moist Respiratory/Chest: lungs clear, other - oxygen by nasal cannula Cardiovascular: normal rate Abdomen: soft, non tender Extremities: no edema Neurologic/Psychiatric: alert, oriented x 3, responsive Laboratory Tests Test 06/14/20 16:53 06/14/20 20:44 06/15/20 03:14 10/19/20 05:53 POC Whole Blood Glucose Pending 243 MG/DL (74-106) H 127 MG/DL (74-106) H White Blood Count 8.9 K/UL (4.8-10.8) Red Blood Count 4.05 M/UL (4.20-5.40) L Hemoglobin 11.4 G/DL (12.0-16.0) L Hematocrit 33.7 % (37.0-47.0) L Mean Corpuscular Volume 83 FL (80-99) Mean Corpuscular Hemoglobin 28.3 PG (27.0-31.0) Mean Corpuscular Hemoglobin Concent 34.0 G/DL (32.0-36.0) Red Cell Distribution Width 14.1 % (11.6-14.8) Platelet Count 255 K/UL (150-450) Mean Platelet Volume 6.6 FL (6.5-10.1) Neutrophils (%) (Auto) 83.8 % (45.0-75.0) H Lymphocytes (%) (Auto) 8.1 % (20.0-45.0) L Monocytes (%) (Auto) 5.6 % (1.0-10.0) Eosinophils (%) (Auto) 0.9 % (0.0-3.0) Basophils (%) (Auto) 1.6 % (0.0-2.0) Sodium Level 132 MMOL/L (136-145) L Potassium Level 4.7 MMOL/L (3.5-5.1) Chloride Level 100 MMOL/L (98-107) Carbon Dioxide Level 31 MMOL/L (21-32) Anion Gap 1 mmol/L (5-15) L Blood Urea Nitrogen 26 mg/dL (7-18) H Creatinine 0.7 MG/DL (0.55-1.30) Estimat Glomerular Filtration Rate > 60 mL/min (>60) Glucose Level 126 MG/DL (74-106) H Osmolality 288 mOsm/kg (297-317) L Uric Acid 2.2 MG/DL (2.6-7.2) L Calcium Level 7.8 MG/DL (8.5-10.1) L Phosphorus Level 2.5 MG/DL (2.5-4.9) Magnesium Level 2.2 MG/DL (1.8-2.4) Total Bilirubin 0.4 MG/DL (0.2-1.0) Aspartate Amino Transf (AST/SGOT) 29 U/L (15-37) Alanine Aminotransferase (ALT/SGPT) 23 U/L (12-78) Alkaline Phosphatase 74 U/L (46-116) C-Reactive Protein, Quantitative < 0.4 mg/dL (0.00-0.90) Total Protein 4.5 G/DL (6.4-8.2) L Albumin 1.7 G/DL (3.4-5.0) L Globulin 2.8 g/dL Albumin/Globulin Ratio 0.6 (1.0-2.7) L Test 06/15/20 08:34 06/15/20 12:09 POC Whole Blood Glucose Pending Pending Current Medications Medications (Trade) Dose Ordered Sig/Jennie Route PRN Reason Start Time Stop Time Status Last Admin Dose Admin Acetaminophen (Tylenol) 500 mg Q6H PRN ORAL Mild Pain (Pain Scale 1-3) 05/19/20 16:45 06/18/20 16:44 Acetaminophen/ Hydrocodone Bitart ([place] 10/325) 1 tab Q4H PRN ORAL Pain Scale (6-10) 06/09/20 11:00 06/16/20 10:59 Acetaminophen/ Hydrocodone Bitart ([place] 5/325) 1 tab Q4H PRN ORAL Moderate Pain (Pain Scale 4-6) 06/09/20 11:00 06/16/20 10:59 Allopurinol (allopurinoL) 300 mg DAILY ORAL 06/06/20 11:00 07/06/20 10:59 06/15/20 08:38 Clonidine HCl (Catapres Tab) 0.1 mg Q4H PRN ORAL SBP > 170 05/24/20 13:15 08/22/20 13:14 Dexamethasone Sodium Phosphate (Decadron 4mg/ml vial) 4 mg DAILY IVP 06/07/20 12:30 09/05/20 12:29 06/15/20 08:38 Dextrose (Dextrose 50%) 25 ml Q30M PRN IV Hypoglycemia 06/14/20 12:30 09/12/20 12:29 Dextrose (Dextrose 50%) 50 ml Q30M PRN IV Hypoglycemia 06/14/20 12:30 09/12/20 12:29 Docusate Sodium (Colace) 100 mg TWICE A DAY ORAL 05/22/20 18:00 06/21/20 17:59 06/15/20 08:38 Enoxaparin Sodium (Lovenox) 40 mg DAILY SUBQ 06/02/20 09:00 08/31/20 08:59 06/15/20 08:40 Insulin Aspart (NovoLOG) BEFORE MEALS AND HS SUBQ 06/05/20 06:30 09/03/20 06:29 06/15/20 12:14 Insulin Detemir (Levemir) 5 units DAILY SUBQ 06/14/20 14:00 09/12/20 13:59 06/15/20 08:40 Mirtazapine (Remeron) 7.5 mg BEDTIME ORAL 06/02/20 21:00 08/31/20 20:59 06/14/20 20:45 Morphine Sulfate (Morphine Sulfate) 2 mg Q4H PRN IVP Severe Pain (Pain Scale 7-10) 06/09/20 11:00 06/16/20 10:59 Pantoprazole (Protonix) 40 mg DAILY IVP 06/08/20 09:00 07/08/20 08:59 06/15/20 08:38 Sodium Chloride 500 ml @ 999 mls/hr Q31M PRN IV For hypotension 06/09/20 17:00 07/09/20 16:59 06/09/20 21:08 Timothy Pennington MD Jun 15, 2020 12:23
--- NOTE | 2020-06-15 12:54 | Diagnostic Imaging Report ---
Indication: Shortness of breath, pleural effusion Technique: XRAY Chest 1v Comparison: 06/14/2020 Findings: There is significant worsening aeration compared to the prior exam with development of bilateral interstitial opacification/edema and patchy perihilar opacities. [id number] left pleural effusion is noted, slightly increased compared to the prior exam. There is a small right pleural effusion. Indwelling chest tubes unchanged in position. IMPRESSION: Worsening aeration with development of bilateral interstitial opacification/edema and patchy perihilar opacities. Findings may be related to CHF/fluid overload. Pneumonia not excluded. Follow-up recommended. Increasing bilateral pleural effusions, small on the right and small to moderate on the left. Indwelling chest tubes
--- NOTE | 2020-06-15 12:57 | Cardiac Electrophysiology PN ---
Assessment/Plan Assessment/Plan 1. Hypertension. Stable off BP meds 2. Troponin leak. No CP, ECG non ischemic and due to renal failure 3. Bilateral pleural effusions. S/P Right side thoracentesis x 2. FU by Dr. Olson. S/P Left thoracentesis again x2 last one 05/29/20. S/P VATS by Dr Joseph with bilateral chest tubes 06/09/20. Extubated and on nasal cannula Chest tubes removed 06/13/20 4. Hyponatremia. 5. CML x 5 years, sees oncologist in [facility] area DCed desatanib (also is the likely cause of pleural effusions) Per Dr Dolan 6. Acute renal failure with sudden JUMP in creatinine to 2.7. FU Dr Carpio. Better after iv fluid, Albumin and off Lisinopril. Cr down to 0.8 DW RN DC today pending Subjective Subjective S/P 2 Right sided thoracentesis on 05/21/20 and 05/26/20 S/P 2 Left thoracentesis last one 05/29/20 S/P VATS by Dr. Joseph 06/09/20. Both chest tubes were removed 2 days ago. On 3 liter Nasal cannula. DC planning in progress Objective Last 24 Hour Vital Signs Date Time Temp Pulse Resp B/P (MAP) Pulse Ox O2 Delivery O2 Flow Rate FiO2 06/15/20 08:00 74 06/15/20 08:00 97.2 86 23 107/68 (81) 90 06/15/20 08:00 97.2 86 23 107/68 (81) 90 06/15/20 08:00 Nasal Cannula 3.0 Nasal Cannula 3.0 06/15/20 08:00 74 06/15/20 04:00 97.3 87 20 92/63 (73) 100 06/15/20 04:00 72 06/15/20 04:00 Nasal Cannula 3.0 Nasal Cannula 3.0 06/15/20 00:00 74 06/15/20 00:00 96.8 80 19 109/62 (78) 97 06/15/20 00:00 Nasal Cannula 3.0 Nasal Cannula 3.0 06/14/20 20:00 Nasal Cannula 3.0 Nasal Cannula 3.0 06/14/20 20:00 98.4 83 18 91/56 (68) 98 06/14/20 19:51 81 10/18/20 16:00 79 06/14/20 16:00 Nasal Cannula 3.0 Nasal Cannula 3.0 06/14/20 16:00 98.1 82 20 98/65 (76) 100 Intake and Output 06/14/20 06/15/20 19:00 07:00 Intake Total 200 ml Balance 200 ml Intake Oral 200 ml # Voids 8 2 # Bowel Movements 1 Laboratory Tests Test 06/14/20 16:53 06/14/20 20:44 06/15/20 03:14 06/15/20 05:53 POC Whole Blood Glucose Pending 243 MG/DL (74-106) H 127 MG/DL (74-106) H White Blood Count 8.9 K/UL (4.8-10.8) Red Blood Count 4.05 M/UL (4.20-5.40) L Hemoglobin 11.4 G/DL (12.0-16.0) L Hematocrit 33.7 % (37.0-47.0) L Mean Corpuscular Volume 83 FL (80-99) Mean Corpuscular Hemoglobin 28.3 PG (27.0-31.0) Mean Corpuscular Hemoglobin Concent 34.0 G/DL (32.0-36.0) Red Cell Distribution Width 14.1 % (11.6-14.8) Platelet Count 255 K/UL (150-450) Mean Platelet Volume 6.6 FL (6.5-10.1) Neutrophils (%) (Auto) 83.8 % (45.0-75.0) H Lymphocytes (%) (Auto) 8.1 % (20.0-45.0) L Monocytes (%) (Auto) 5.6 % (1.0-10.0) Eosinophils (%) (Auto) 0.9 % (0.0-3.0) Basophils (%) (Auto) 1.6 % (0.0-2.0) Sodium Level 132 MMOL/L (136-145) L Potassium Level 4.7 MMOL/L (3.5-5.1) Chloride Level 100 MMOL/L (98-107) Carbon Dioxide Level 31 MMOL/L (21-32) Anion Gap 1 mmol/L (5-15) L Blood Urea Nitrogen 26 mg/dL (7-18) H Creatinine 0.7 MG/DL (0.55-1.30) Estimat Glomerular Filtration Rate > 60 mL/min (>60) Glucose Level 126 MG/DL (74-106) H Osmolality 288 mOsm/kg (297-317) L Uric Acid 2.2 MG/DL (2.6-7.2) L Calcium Level 7.8 MG/DL (8.5-10.1) L Phosphorus Level 2.5 MG/DL (2.5-4.9) Magnesium Level 2.2 MG/DL (1.8-2.4) Total Bilirubin 0.4 MG/DL (0.2-1.0) Aspartate Amino Transf (AST/SGOT) 29 U/L (15-37) Alanine Aminotransferase (ALT/SGPT) 23 U/L (12-78) Alkaline Phosphatase 74 U/L (46-116) C-Reactive Protein, Quantitative < 0.4 mg/dL (0.00-0.90) Total Protein 4.5 G/DL (6.4-8.2) L Albumin 1.7 G/DL (3.4-5.0) L Globulin 2.8 g/dL Albumin/Globulin Ratio 0.6 (1.0-2.7) L Test 06/15/20 08:34 06/15/20 12:09 POC Whole Blood Glucose Pending Pending Objective HEAD AND NECK: No JVD. LUNGS: Decreased breath sounds. Bilateral chest tubes removed now CARDIOVASCULAR: Regular S1 and S2 and tachycardic. ABDOMEN: Soft. EXTREMITIES: No pitting edema. Cristian England MD Jun 15, 2020 12:57
--- NOTE | 2020-06-15 20:39 | General Progress Note ---
Subjective ROS Limited/Unobtainable: Yes Allergies: Coded Allergies: No Known Allergies (Unverified , 05/19/20) Objective Last 24 Hour Vital Signs Date Time Temp Pulse Resp B/P (MAP) Pulse Ox O2 Delivery O2 Flow Rate FiO2 06/15/20 16:00 86 06/15/20 16:00 Nasal Cannula 2.0 Nasal Cannula 2.0 06/15/20 16:00 97.0 94 20 95/65 (75) 100 06/15/20 16:00 86 06/15/20 12:00 90 06/15/20 12:00 90 06/15/20 12:00 97.0 96 20 116/61 (79) 100 06/15/20 12:00 Nasal Cannula 2.0 Nasal Cannula 2.0 06/15/20 08:00 74 06/15/20 08:00 97.2 86 23 107/68 (81) 90 06/15/20 08:00 97.2 86 23 107/68 (81) 100 06/15/20 08:00 Nasal Cannula 3.0 Nasal Cannula 3.0 06/15/20 08:00 74 06/15/20 04:00 97.3 87 20 92/63 (73) 100 06/15/20 04:00 72 06/15/20 04:00 Nasal Cannula 3.0 Nasal Cannula 3.0 06/15/20 00:00 74 06/15/20 00:00 96.8 80 19 109/62 (78) 97 06/15/20 00:00 Nasal Cannula 3.0 Nasal Cannula 3.0 Intake and Output 06/14/20 06/15/20 19:00 07:00 Intake Total 200 ml Balance 200 ml Intake Oral 200 ml # Voids 8 2 # Bowel Movements 1 Laboratory Tests 06/14/20 20:44: POC Whole Blood Glucose 243H 06/15/20 03:14: White Blood Count 8.9, Red Blood Count 4.05L, Hemoglobin 11.4L, Hematocrit 33.7L , Mean Corpuscular Volume 83, Mean Corpuscular Hemoglobin 28.3, Mean Corpuscular Hemoglobin Concent 34.0, Red Cell Distribution Width 14.1, Platelet Count 255, Mean Platelet Volume 6.6, Neutrophils (%) (Auto) 83.8H, Lymphocytes (%) (Auto) 8.1L, Monocytes (%) (Auto) 5.6, Eosinophils (%) (Auto) 0.9, Basophils (%) (Auto) 1.6, Sodium Level 132L, Potassium Level 4.7, Chloride Level 100, Carbon Dioxide Level 31, Anion Gap 1L, Blood Urea Nitrogen 26H, Creatinine 0.7, Estimat Glomerular Filtration Rate > 60, Glucose Level 126H, Osmolality 288L, Uric Acid 2.2L, Calcium Level 7.8L, Phosphorus Level 2.5, Magnesium Level 2.2, Total Bilirubin 0.4, Aspartate Amino Transf (AST/SGOT) 29, Alanine Aminotransferase (ALT/SGPT) 23, Alkaline Phosphatase 74, C-Reactive Protein, Quantitative < 0.4, Total Protein 4.5L, Albumin 1.7L, Globulin 2.8, Albumin/Globulin Ratio 0.6L 06/15/20 05:53: POC Whole Blood Glucose 127H 06/15/20 08:34: POC Whole Blood Glucose [Pending] 06/15/20 12:09: POC Whole Blood Glucose [Pending] 06/15/20 16:37: POC Whole Blood Glucose 262H Height (Feet): 5 Height (Inches): 0.00 Weight (Pounds): 111 Assessment/Plan Problem List: (1) Leukemia ICD Codes: C95.90 - Leukemia, unspecified not having achieved remission SNOMED: 72870806 (2) Bilateral pleural effusion ICD Codes: J90 - Pleural effusion, not elsewhere classified SNOMED: 142033538 Status: progressing Assessment/Plan: prn oxygen if needs afebrile dc planning resp insuff s/p thoracocentesis for recurrent pleural effusion Tiara Jara MD Jun 15, 2020 20:39
--- NOTE | 2020-06-15 22:08 | General Progress Note ---
Subjective Allergies: Coded Allergies: No Known Allergies (Unverified , 05/19/20) Subjective Seen this am doing better breathing better tolerating PO diet Objective Last 24 Hour Vital Signs Date Time Temp Pulse Resp B/P (MAP) Pulse Ox O2 Delivery O2 Flow Rate FiO2 06/15/20 20:00 Nasal Cannula 2.0 Nasal Cannula 2.0 06/15/20 20:00 97.5 84 20 80/46 (57) 100 06/15/20 19:03 85 06/15/20 16:00 86 06/15/20 16:00 Nasal Cannula 2.0 Nasal Cannula 2.0 06/15/20 16:00 97.0 94 20 95/65 (75) 100 06/15/20 16:00 86 06/15/20 12:00 90 06/15/20 12:00 90 06/15/20 12:00 97.0 96 20 116/61 (79) 100 06/15/20 12:00 Nasal Cannula 2.0 Nasal Cannula 2.0 06/15/20 08:00 74 06/15/20 08:00 97.2 86 23 107/68 (81) 90 06/15/20 08:00 97.2 86 23 107/68 (81) 100 06/15/20 08:00 Nasal Cannula 3.0 Nasal Cannula 3.0 06/15/20 08:00 74 06/15/20 04:00 97.3 87 20 92/63 (73) 100 06/15/20 04:00 72 06/15/20 04:00 Nasal Cannula 3.0 Nasal Cannula 3.0 06/15/20 00:00 74 06/15/20 00:00 96.8 80 19 109/62 (78) 97 06/15/20 00:00 Nasal Cannula 3.0 Nasal Cannula 3.0 Intake and Output 06/14/20 06/15/20 19:00 07:00 Intake Total 200 ml Balance 200 ml Intake Oral 200 ml # Voids 8 2 # Bowel Movements 1 Laboratory Tests 06/15/20 03:14: White Blood Count 8.9, Red Blood Count 4.05L, Hemoglobin 11.4L, Hematocrit 33.7L , Mean Corpuscular Volume 83, Mean Corpuscular Hemoglobin 28.3, Mean Corpuscular Hemoglobin Concent 34.0, Red Cell Distribution Width 14.1, Platelet Count 255, Mean Platelet Volume 6.6, Neutrophils (%) (Auto) 83.8H, Lymphocytes (%) (Auto) 8.1L, Monocytes (%) (Auto) 5.6, Eosinophils (%) (Auto) 0.9, Basophils (%) (Auto) 1.6, Sodium Level 132L, Potassium Level 4.7, Chloride Level 100, Carbon Dioxide Level 31, Anion Gap 1L, Blood Urea Nitrogen 26H, Creatinine 0.7, Estimat Glomerular Filtration Rate > 60, Glucose Level 126H, Osmolality 288L, Uric Acid 2.2L, Calcium Level 7.8L, Phosphorus Level 2.5, Magnesium Level 2.2, Total Bili bullard 0.4, Aspartate Amino Transf (AST/SGOT) 29, Alanine Aminotransferase (ALT/SGPT) 23, Alkaline Phosphatase 74, C-Reactive Protein, Quantitative < 0.4, Total Protein 4.5L, Albumin 1.7L, Globulin 2.8, Albumin/Globulin Ratio 0.6L 06/15/20 05:53: POC Whole Blood Glucose 127H 06/15/20 08:34: POC Whole Blood Glucose [Pending] 06/15/20 12:09: POC Whole Blood Glucose [Pending] 06/15/20 16:37: POC Whole Blood Glucose 262H Height (Feet): 5 Height (Inches): 0.00 Weight (Pounds): 111 Objective NCAT, supple Coarse BS RR abd soft no edema Assessment/Plan Status: progressing Assessment/Plan: Assessment - Respiratory failure- improved - pleural effusions, s/p thoracentesis - Renal failure - resolved - Elevated troponin - HTN - CML Recommendations - Pulmonary management - Elevate HOB - po diet as tolerated - follow labs and exam Antonio Ratliff MD Jun 15, 2020 22:08
[2020-06-16 00:30] VITALS: BP 91/54
[2020-06-16 04:00] VITALS: BP 95/50
[2020-06-16] MEDS: NovoLOG Insulin Flexpen SUBQ SCH (05:31)
--- NOTE | 2020-06-16 05:54 | General Progress Note ---
Subjective Allergies: Coded Allergies: No Known Allergies (Unverified , 05/19/20) All Systems: reviewed and negative except above Subjective events noted interval notes reviewed glucose values in fair control tolerating diet Item Value Date Time Bedside Blood Glucose 114 mg/dl 06/16/20 0531 Bedside Blood Glucose 174 mg/dl H 06/15/20 2100 Bedside Blood Glucose 262 mg/dl H 06/15/20 1710 Bedside Blood Glucose 226 mg/dl H 06/15/20 1214 Bedside Blood Glucose 174 mg/dl H 06/15/20 0900 Bedside Blood Glucose 127 mg/dl H 06/15/20 0630 Objective Last 24 Hour Vital Signs Date Time Temp Pulse Resp B/P (MAP) Pulse Ox O2 Delivery O2 Flow Rate FiO2 06/16/20 04:00 97.0 72 16 95/50 (65) 100 06/16/20 04:00 Nasal Cannula 2.0 Nasal Cannula 2.0 06/16/20 03:30 76 06/16/20 00:30 82 91/54 (66) 06/15/20 23:49 97.1 80 16 87/56 (66) 100 06/15/20 23:49 Nasal Cannula 2.0 Nasal Cannula 2.0 06/15/20 23:30 74 06/15/20 20:00 Nasal Cannula 2.0 Nasal Cannula 2.0 06/15/20 20:00 97.5 84 20 80/46 (57) 100 06/15/20 19:03 85 06/15/20 16:00 86 06/15/20 16:00 Nasal Cannula 2.0 Nasal Cannula 2.0 06/15/20 16:00 97.0 94 20 95/65 (75) 100 06/15/20 16:00 86 06/15/20 12:00 90 06/15/20 12:00 90 06/15/20 12:00 97.0 96 20 116/61 (79) 100 06/15/20 12:00 Nasal Cannula 2.0 Nasal Cannula 2.0 06/15/20 08:00 74 06/15/20 08:00 97.2 86 23 107/68 (81) 90 06/15/20 08:00 97.2 86 23 107/68 (81) 100 06/15/20 08:00 Nasal Cannula 3.0 Nasal Cannula 3.0 06/15/20 08:00 74 Intake and Output 06/15/20 06/16/20 19:00 07:00 Intake Total 500 ml 450 ml Output Total 300 ml Balance 500 ml 150 ml Intake Oral 500 ml 450 ml Output Urine Total 300 ml # Voids 9 # Bowel Movements 2 Laboratory Tests 06/15/20 08:34: POC Whole Blood Glucose [Pending] 06/15/20 12:09: POC Whole Blood Glucose [Pending] 06/15/20 16:37: POC Whole Blood Glucose 262H 06/16/20 05:28: POC Whole Blood Glucose 114H Height (Feet): 5 Height (Inches): 0.00 Weight (Pounds): 111 General Appearance: no apparent distress Neck: normal alignment Cardiovascular: normal rate Respiratory/Chest: decreased breath sounds Abdomen: normal bowel sounds Pelvis: normal external exam Objective Current Medications Medications (Trade) Dose Ordered Sig/Jennie Route PRN Reason Start Time Stop Time Status Last Admin Dose Admin Acetaminophen (Tylenol) 500 mg Q6H PRN ORAL Mild Pain (Pain Scale 1-3) 05/19/20 16:45 06/18/20 16:44 Acetaminophen/ Hydrocodone Bitart ([place] 10/325) 1 tab Q4H PRN ORAL Pain Scale (6-10) 06/09/20 11:00 06/16/20 10:59 Acetaminophen/ Hydrocodone Bitart ([place] 5/325) 1 tab Q4H PRN ORAL Moderate Pain (Pain Scale 4-6) 06/09/20 11:00 06/16/20 10:59 Allopurinol (allopurinoL) 300 mg DAILY ORAL 06/06/20 11:00 07/06/20 10:59 06/15/20 08:38 Clonidine HCl (Catapres Tab) 0.1 mg Q4H PRN ORAL SBP > 170 05/24/20 13:15 08/22/20 13:14 Dexamethasone Sodium Phosphate (Decadron 4mg/ml vial) 4 mg DAILY IVP 06/07/20 12:30 09/05/20 12:29 06/15/20 08:38 Dextrose (Dextrose 50%) 25 ml Q30M PRN IV Hypoglycemia 06/14/20 12:30 09/12/20 12:29 Dextrose (Dextrose 50%) 50 ml Q30M PRN IV Hypoglycemia 06/14/20 12:30 09/12/20 12:29 Docusate Sodium (Colace) 100 mg TWICE A DAY ORAL 05/22/20 18:00 06/21/20 17:59 06/15/20 17:10 Enoxaparin Sodium (Lovenox) 40 mg DAILY SUBQ 06/02/20 09:00 08/31/20 08:59 06/15/20 08:40 Insulin Aspart (NovoLOG) BEFORE MEALS AND HS SUBQ 06/05/20 06:30 09/03/20 06:29 06/15/20 20:10 Insulin Detemir (Levemir) 5 units DAILY SUBQ 06/14/20 14:00 09/12/20 13:59 06/15/20 08:40 Mirtazapine (Remeron) 7.5 mg BEDTIME ORAL 06/02/20 21:00 08/31/20 20:59 06/15/20 20:09 Morphine Sulfate (Morphine Sulfate) 2 mg Q4H PRN IVP Severe Pain (Pain Scale 7-10) 06/09/20 11:00 06/16/20 10:59 Pantoprazole (Protonix) 40 mg DAILY IVP 06/08/20 09:00 07/08/20 08:59 06/15/20 08:38 Sodium Chloride 500 ml @ 999 mls/hr Q31M PRN IV For hypotension 06/09/20 17:00 07/09/20 16:59 06/09/20 21:08 Assessment/Plan Problem List: (1) Hypoglycemia ICD Codes: E16.2 - Hypoglycemia, unspecified SNOMED: 004062028 (2) Steroid-induced hyperglycemia ICD Codes: R73.9 - Hyperglycemia, unspecified; T38.0X5A - Adverse effect of glucocorticoids and synthetic analogues, initial encounter SNOMED: 239014573 (3) ASHLEY (acute kidney injury) ICD Codes: N17.9 - Acute kidney failure, unspecified SNOMED: 4726239, 86936811 (4) Bilateral pleural effusion ICD Codes: J90 - Pleural effusion, not elsewhere classified SNOMED: 303638689 (5) Leukemia ICD Codes: C95.90 - Leukemia, unspecified not having achieved remission SNOMED: 97229868 (6) Anxiety ICD Codes: F41.9 - Anxiety disorder, unspecified SNOMED: 90642233 Status: progressing Assessment/Plan: continue Levemir 5 units daily continue Novolog sliding scale hypoglycemia protocol in order Geoff Gomez MD Jun 16, 2020 05:54
--- NOTE | 2020-06-16 06:40 | Hematology/Onc Progress Note ---
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, sees oncologist in [facility] --> at this time STOP desatanib (also is the likely cause of pleural effusions) --> no is s/p thora per pulm/cards --> 06/04 started low dose dexamethasone for immune response suppression --> wbc trend 18->7->10-->19->11-->9 --> hgb 11.5->12->13-->11 --> ABX ceftriaxone-->off --> bipap, thora prn, s/p left chest tube --> needs molecular and cytogenectic response for CML, f/u oncologist outpatient # Bilateral pleural effusion --> as per pulm, is on bipap --> thora as needed --> repeat thora prn 05/29 --> pleural fluid is neg for malignancy --> dr. Joseph has accessed--> for biospy pleural->pleural fluid neg for malignancy 06/11 --> 06/[address]-->remove as needed --> imaging q2-3 days # HTN --> hydralazine and lisinopril --> sbp goal <140 # Dehydration --> goal of euvolemia # Elevated ddimer --> duplex lower ext r/o dvt==>neg # Dvt ppx lovenox sq Appreciate consultation and dw RN Subjective Constitutional: Denies: no symptoms, chills, fever, malaise, weakness, other Cardiovascular: Denies: no symptoms, chest pain, edema, irregular heart rate, lightheadedness, palpitations, syncope, other Gastrointestinal/Abdominal: Denies: no symptoms, abdomen distended, abdominal pain, black stools, tarry stools, blood in stool, constipated, diarrhea, diffic ulty swallowing, nausea, poor appetite, poor fluid intake, rectal bleeding, vomiting, other Neurologic/Psychiatric: Denies: no symptoms, anxiety, depressed, emotional problems, headache, numbness, paresthesia, pre-existing deficit, seizure, tingling, tremors, weakness, other Endocrine: Denies: no symptoms, excessive sweating, flushing, intolerance to cold, intolerance to heat, increased hunger, increased thirst, increased urine, unexplained weight gain, unexplained weight loss, other Allergies: Coded Allergies: No Known Allergies (Unverified , 05/19/20) Subjective 05/21 labs are noted, no bleeding, with pleural effusions due to desatanbib, s/p thora 05/22 labs are noted, no bleeding, on bipap, i dw her today to stop her med at once 05/24 wbc is improved, continue on ctx for one more day per id, bipap 05/26 have ordered for repeat cxr this am to reeval pleural effusions, labs noted 05/27 with b/l pleural effusions, aware from pulm, thora prn 05/28 has been refusing scds, thus will start lovenox today, breathing better s/p thora 05/29 with nonrebreather, for thora today, no night sweats, meds noted 05/31 remains on bipap, meds reviewed, off desatanib, worse effusion r>l 06/01 on bipap this am, labs pending for am 06/02 unable to wean off facemask, requiring it, will dw sister today 06/03 labs reviewed, meds noted, continues to be bipap support 06/04 no aspiration, is comfortable, meds reviewed, no bleeding 06/05 dw pulm yes, may need ct surg eval, chest tube, started steriods 06/06: labs reviewed no acute events overnight. 06/07 comfortable, no bleeding, meds reviewed, is on bipap still 06/08 labs reviewed, imaging noted, is on bipap this am 06/09 wbc higher, for procedure today, by cts, may get pleural biopsy 06/10 ct placed yest, today in am was intubated, but now extubated on nc in afternoon, zachariah Rn 06/11 labs reviewed, no bleeding, remains in the icu, wbc 19 06/12 breathing has improved,cbc ordered, no bleeding, labs noted 06/14 labs reviewed, no night sweats, no bleeding, meds noted 06/15 labs noted, no bleeding, zachariah rn, no major changes, dw patient, left chest tube 06/16 pleurex both sides, dw sister yesterday, potential dc shortly Objective Objective Current Medications Medications (Trade) Dose Ordered Sig/Jennie Route PRN Reason Start Time Stop Time Status Last Admin Dose Admin Acetaminophen (Tylenol) 500 mg Q6H PRN ORAL Mild Pain (Pain Scale 1-3) 05/19/20 16:45 06/18/20 16:44 Acetaminophen/ Hydrocodone Bitart ([place] 10/325) 1 tab Q4H PRN ORAL Pain Scale (6-10) 06/09/20 11:00 06/16/20 10:59 Acetaminophen/ Hydrocodone Bitart ([place] 5/325) 1 tab Q4H PRN ORAL Moderate Pain (Pain Scale 4-6) 06/09/20 11:00 06/16/20 10:59 Allopurinol (allopurinoL) 300 mg DAILY ORAL 06/06/20 11:00 07/06/20 10:59 06/15/20 08:38 Clonidine HCl (Catapres Tab) 0.1 mg Q4H PRN ORAL SBP > 170 05/24/20 13:15 08/22/20 13:14 Dexamethasone Sodium Phosphate (Decadron 4mg/ml vial) 4 mg DAILY IVP 06/07/20 12:30 09/05/20 12:29 06/15/20 08:38 Dextrose (Dextrose 50%) 25 ml Q30M PRN IV Hypoglycemia 06/14/20 12:30 09/12/20 12:29 Dextrose (Dextrose 50%) 50 ml Q30M PRN IV Hypoglycemia 06/14/20 12:30 09/12/20 12:29 Docusate Sodium (Colace) 100 mg TWICE A DAY ORAL 05/22/20 18:00 06/21/20 17:59 06/15/20 17:10 Enoxaparin Sodium (Lovenox) 40 mg DAILY SUBQ 06/02/20 09:00 08/31/20 08:59 06/15/20 08:40 Insulin Aspart (NovoLOG) BEFORE MEALS AND HS SUBQ 06/05/20 06:30 09/03/20 06:29 06/15/20 20:10 Insulin Detemir (Levemir) 5 units DAILY SUBQ 06/14/20 14:00 09/12/20 13:59 06/15/20 08:40 Mirtazapine (Remeron) 7.5 mg BEDTIME ORAL 06/02/20 21:00 08/31/20 20:59 06/15/20 20:09 Morphine Sulfate (Morphine Sulfate) 2 mg Q4H PRN IVP Severe Pain (Pain Scale 7-10) 06/09/20 11:00 06/16/20 10:59 Pantoprazole (Protonix) 40 mg DAILY IVP 06/08/20 09:00 07/08/20 08:59 06/15/20 08:38 Sodium Chloride 500 ml @ 999 mls/hr Q31M PRN IV For hypotension 06/09/20 17:00 07/09/20 16:59 06/09/20 21:08 Last 24 Hour Vital Signs Date Time Temp Pulse Resp B/P (MAP) Pulse Ox O2 Delivery O2 Flow Rate FiO2 06/16/20 04:00 97.0 72 16 95/50 (65) 100 06/16/20 04:00 Nasal Cannula 2.0 Nasal Cannula 2.0 06/16/20 03:30 76 06/16/20 00:30 82 91/54 (66) 06/15/20 23:49 97.1 80 16 87/56 (66) 100 06/15/20 23:49 Nasal Cannula 2.0 Nasal Cannula 2.0 06/15/20 23:30 74 06/15/20 20:00 Nasal Cannula 2.0 Nasal Cannula 2.0 06/15/20 20:00 97.5 84 20 80/46 (57) 100 06/15/20 19:03 85 06/15/20 16:00 86 06/15/20 16:00 Nasal Cannula 2.0 Nasal Cannula 2.0 06/15/20 16:00 97.0 94 20 95/65 (75) 100 06/15/20 16:00 86 06/15/20 12:00 90 06/15/20 12:00 90 06/15/20 12:00 97.0 96 20 116/61 (79) 100 06/15/20 12:00 Nasal Cannula 2.0 Nasal Cannula 2.0 06/15/20 08:00 74 06/15/20 08:00 97.2 86 23 107/68 (81) 90 06/15/20 08:00 97.2 86 23 107/68 (81) 100 06/15/20 08:00 Nasal Cannula 3.0 Nasal Cannula 3.0 06/15/20 08:00 74 06/15/20 04:00 97.3 87 20 92/63 (73) 100 06/15/20 04:00 72 06/15/20 04:00 Nasal Cannula 3.0 Nasal Cannula 3.0 06/15/20 00:00 74 06/15/20 00:00 96.8 80 19 109/62 (78) 97 06/15/20 00:00 Nasal Cannula 3.0 Nasal Cannula 3.0 06/14/20 20:00 Nasal Cannula 3.0 Nasal Cannula 3.0 06/14/20 20:00 98.4 83 18 91/56 (68) 98 06/14/20 19:51 81 06/14/20 16:00 79 06/14/20 16:00 Nasal Cannula 3.0 Nasal Cannula 3.0 06/14/20 16:00 98.1 82 20 98/65 (76) 100 06/14/20 12:00 90 06/14/20 12:00 98.0 84 20 101/68 (79) 98 06/14/20 12:00 98.0 84 20 101/68 (79) 98 06/14/20 12:00 90 06/14/20 12:00 Nasal Cannula 4.0 Nasal Cannula 4.0 06/14/20 08:00 97.3 91 18 84/53 (63) 100 06/14/20 08:00 97.3 80 18 100/60 (73) 100 06/14/20 08:00 76 06/14/20 08:00 Nasal Cannula 4.0 Nasal Cannula 4.0 06/14/20 08:00 76 Intake and Output 06/15/20 06/16/20 19:00 07:00 Intake Total 500 ml 30 ml Balance 500 ml 30 ml Intake Oral 500 ml 30 ml # Voids 9 1 # Bowel Movements 2 Labs Test 06/13/20 11:47 06/13/20 16:45 06/13/20 20:57 06/14/20 11:48 POC Whole Blood Glucose 219 MG/DL (74-106) 280 MG/DL (74-106) Test 06/14/20 16:53 06/14/20 20:44 06/15/20 03:14 06/15/20 05:53 POC Whole Blood Glucose 243 MG/DL (74-106) 127 MG/DL (74-106) White Blood Count 8.9 K/UL (4.8-10.8) Red Blood Count 4.05 M/UL (4.20-5.40) Hemoglobin 11.4 G/DL (12.0-16.0) Hematocrit 33.7 % (37.0-47.0) Mean Corpuscular Volume 83 FL (80-99) Mean Corpuscular Hemoglobin 28.3 PG (27.0-31.0) Mean Corpuscular Hemoglobin Concent 34.0 G/DL (32.0-36.0) Red Cell Distribution Width 14.1 % (11.6-14.8) Platelet Count 255 K/UL (150-450) Mean Platelet Volume 6.6 FL (6.5-10.1) Neutrophils (%) (Auto) 83.8 % (45.0-75.0) Lymphocytes (%) (Auto) 8.1 % (20.0-45.0) Monocytes (%) (Auto) 5.6 % (1.0-10.0) Eosinophils (%) (Auto) 0.9 % (0.0-3.0) Basophils (%) (Auto) 1.6 % (0.0-2.0) Sodium Level 132 MMOL/L (136-145) Potassium Level 4.7 MMOL/L (3.5-5.1) Chloride Level 100 MMOL/L (98-107) Carbon Dioxide Level 31 MMOL/L (21-32) Anion Gap 1 mmol/L (5-15) Blood Urea Nitrogen 26 mg/dL (7-18) Creatinine 0.7 MG/DL (0.55-1.30) Estimat Glomerular Filtration Rate > 60 mL/min (>60) Glucose Level 126 MG/DL (74-106) Osmolality 288 mOsm/kg (297-317) Uric Acid 2.2 MG/DL (2.6-7.2) Calcium Level 7.8 MG/DL (8.5-10.1) Phosphorus Level 2.5 MG/DL (2.5-4.9) Magnesium Level 2.2 MG/DL (1.8-2.4) Total Bilirubin 0.4 MG/DL (0.2-1.0) Aspartate Amino Transf (AST/SGOT) 29 U/L (15-37) Alanine Aminotransferase (ALT/SGPT) 23 U/L (12-78) Alkaline Phosphatase 74 U/L (46-116) C-Reactive Protein, Quantitative < 0.4 mg/dL (0.00-0.90) Total Protein 4.5 G/DL (6.4-8.2) Albumin 1.7 G/DL (3.4-5.0) Globulin 2.8 g/dL Albumin/Globulin Ratio 0.6 (1.0-2.7) Test 06/15/20 08:34 06/15/20 12:09 06/15/20 16:37 06/16/20 05:28 POC Whole Blood Glucose 262 MG/DL (74-106) 114 MG/DL (74-106) Height (Feet): 5 Height (Inches): 0.00 Weight (Pounds): 111 Objective Physical Exam: Vitals: reviewed General: NAD HEENT: nc, at Neck: supple Chest: clear breath sounds bilaterally ++ left sided chest tube Cardiovascular: RRR, no s3, s4 Abdomen: soft, nontender, nd Extremities: no cce, normal range of motion Dionicio Higgins MD Jun 16, 2020 06:40
[2020-06-16 08:00] VITALS: BP 99/63
[2020-06-16 08:33] LABS: BASOPHILS % (AUTO) 2.1 % (0.0-2.0); HEMATOCRIT 33.3 % (37.0-47.0); HEMOGLOBIN 11.5 G/DL (12.0-16.0); MEAN CORPUSCULAR VOLUME 83 FL (80-99); MONOCYTES % (AUTO) 4.9 % (1.0-10.0); NEUTROPHILS % (AUTO) 84.2 % (45.0-75.0); PLATELET COUNT 272 K/UL (150-450); RED BLOOD COUNT 4.01 M/UL (4.20-5.40); RED CELL DISTRIBUTION WIDTH 14.5 % (11.6-14.8); WHITE BLOOD COUNT 9.7 K/UL (4.8-10.8)
[2020-06-16] MEDS: Enoxaparin 40mg Inj SUBQ SCH (09:00)
--- NOTE | 2020-06-16 09:27 | Pulmonology Progress Note ---
Subjective ROS Limited/Unobtainable: Yes Interval Events: S/p VATS, Pleurex and lung biopsy Constitutional: Reports: no symptoms HEENT: Repors: no symptoms Respiratory: Reports: dry cough Gastrointestinal/Abdominal: Reports: no symptoms Genitourinary: Reports: no symptoms Neurologic: Reports: no symptoms Musculoskeletal: Denies: pain Allergies: Coded Allergies: No Known Allergies (Unverified , 05/19/20) All Systems: reviewed and negative except above Objective Last 24 Hour Vital Signs Date Time Temp Pulse Resp B/P (MAP) Pulse Ox O2 Delivery O2 Flow Rate FiO2 06/16/20 04:00 97.0 72 16 95/50 (65) 100 06/16/20 04:00 Nasal Cannula 2.0 Nasal Cannula 2.0 06/16/20 03:30 76 06/16/20 00:30 82 91/54 (66) 06/15/20 23:49 97.1 80 16 87/56 (66) 100 06/15/20 23:49 Nasal Cannula 2.0 Nasal Cannula 2.0 06/15/20 23:30 74 06/15/20 20:00 Nasal Cannula 2.0 Nasal Cannula 2.0 06/15/20 20:00 97.5 84 20 80/46 (57) 100 06/15/20 19:03 85 06/15/20 16:00 86 06/15/20 16:00 Nasal Cannula 2.0 Nasal Cannula 2.0 06/15/20 16:00 97.0 94 20 95/65 (75) 100 06/15/20 16:00 86 06/15/20 12:00 90 06/15/20 12:00 90 06/15/20 12:00 97.0 96 20 116/61 (79) 100 06/15/20 12:00 Nasal Cannula 2.0 Nasal Cannula 2.0 Intake and Output 06/15/20 06/16/20 19:00 07:00 Intake Total 500 ml 30 ml Balance 500 ml 30 ml Intake Oral 500 ml 30 ml # Voids 9 1 # Bowel Movements 2 General Appearance: no acute distress Respiratory: chest wall non-tender, no respiratory distress, no accessory muscle use, decreased breath sounds Cardiovascular: normal peripheral pulses, normal rate Abdomen: normal bowel sounds Extremities: no cyanosis, no clubbing, no edema Neurologic: oriented x 3 Laboratory Tests 06/15/20 12:09: POC Whole Blood Glucose [Pending] 06/15/20 16:37: POC Whole Blood Glucose 262H 06/16/20 05:28: POC Whole Blood Glucose 114H 06/16/20 07:50: White Blood Count 9.7, Red Blood Count 4.01L, Hemoglobin 11.5L, Hematocrit 33.3L , Mean Corpuscular Volume 83, Mean Corpuscular Hemoglobin 28.7, Mean Corpuscular Hemoglobin Concent 34.6, Red Cell Distribution Width 14.5, Platelet Count 272, Mean Platelet Volume 6.2L, Neutrophils (%) (Auto) 84.2H, Lymphocytes (%) (Auto) 8.0L, Monocytes (%) (Auto) 4.9, Eosinophils (%) (Auto) 1.0, Basophils (%) (Auto) 2.1H Current Medications Medications (Trade) Dose Ordered Sig/Jennie Route PRN Reason Start Time Stop Time Status Last Admin Dose Admin Acetaminophen (Tylenol) 500 mg Q6H PRN ORAL Mild Pain (Pain Scale 1-3) 05/19/20 16:45 06/18/20 16:44 Acetaminophen/ Hydrocodone Bitart ([place] 10/325) 1 tab Q4H PRN ORAL Pain Scale (6-10) 06/09/20 11:00 06/16/20 10:59 Acetaminophen/ Hydrocodone Bitart ([place] 5/325) 1 tab Q4H PRN ORAL Moderate Pain (Pain Scale 4-6) 06/09/20 11:00 06/16/20 10:59 Allopurinol (allopurinoL) 300 mg DAILY ORAL 06/06/20 11:00 07/06/20 10:59 06/15/20 08:38 Clonidine HCl (Catapres Tab) 0.1 mg Q4H PRN ORAL SBP > 170 05/24/20 13:15 08/22/20 13:14 Dexamethasone Sodium Phosphate (Decadron 4mg/ml vial) 4 mg DAILY IVP 06/07/20 12:30 09/05/20 12:29 06/15/20 08:38 Dextrose (Dextrose 50%) 25 ml Q30M PRN IV Hypoglycemia 06/14/20 12:30 09/12/20 12:29 Dextrose (Dextrose 50%) 50 ml Q30M PRN IV Hypoglycemia 06/14/20 12:30 09/12/20 12:29 Docusate Sodium (Colace) 100 mg TWICE A DAY ORAL 05/22/20 18:00 06/21/20 17:59 06/15/20 17:10 Enoxaparin Sodium (Lovenox) 40 mg DAILY SUBQ 06/02/20 09:00 08/31/20 08:59 06/15/20 08:40 Insulin Aspart (NovoLOG) BEFORE MEALS AND HS SUBQ 06/05/20 06:30 09/03/20 06:29 06/15/20 20:10 Insulin Detemir (Levemir) 5 units DAILY SUBQ 06/14/20 14:00 09/12/20 13:59 06/15/20 08:40 Mirtazapine (Remeron) 7.5 mg BEDTIME ORAL 06/02/20 21:00 08/31/20 20:59 06/15/20 20:09 Morphine Sulfate (Morphine Sulfate) 2 mg Q4H PRN IVP Severe Pain (Pain Scale 7-10) 06/09/20 11:00 06/16/20 10:59 Pantoprazole (Protonix) 40 mg DAILY IVP 06/08/20 09:00 07/08/20 08:59 06/15/20 08:38 Sodium Chloride 500 ml @ 999 mls/hr Q31M PRN IV For hypotension 06/09/20 17:00 07/09/20 16:59 06/09/20 21:08 Assessment/Plan Assessment/Plan IMPRESSION: 1. History of CML, on dasatinib. 2. Possible pneumonia. 3. Large pleural effusion, s/p B thoracentesis. 4. Hypertension. 5. Elevated D-dimer DISCUSSION: S/p VATS, B Pleurex and lung biopsy Pleurex in place On 2L/min O2 Off IV fluids DC home Michelet Hernandez Omar Syed MD Jun 16, 2020 09:27
[2020-06-16] MEDS: Pantoprazole Inj IVP SCH (09:33)
[2020-06-16] MEDS: Docusate 100mg cap ORAL SCH (09:33)
[2020-06-16] MEDS: Levemir Flexpen SUBQ SCH (09:37)
--- NOTE | 2020-06-16 10:57 | Nephrology Progress Note ---
Assessment/Plan Problem List: (1) ASHLEY (acute kidney injury) (2) Bilateral pleural effusion (3) Leukemia Assessment Imp: Acute renal failure, with sudden jump in serum creatinine to 2.7 History of leukemia Hypertension, now hypotensive Hyponatremia on admission, improved Bilateral pleural effusion. Status post paracentesis. Elevated troponin, most likely leak. Plan June 16: Clinically stable. No labs done today. Stable from renal standpoint of view. June 15: Patient appears stable. Labs reviewed. Serum sodium 132. Urine studies ordered. Uric acid and serum osmolarity to be added to today's labs. Continue rest. June 14: Both chest tubes were discontinued yesterday. Patient clinically stable. No chemistry panel done today. Will order labs for tomorrow. June 13: Labs reviewed. Renal parameters stable. Remains on nasal cannula. Continue per pulmonary. June 12: Now in [facility]. Discussed with RN. No chemistry panel done today. On nasal cannula. Daughter in room present. Chest tubes present. Below are the lab for tomorrow. Continue per consultants. June 11: Seen in ICU. Discussed with RN. Patient was extubated. On nasal cannula. Bilateral chest tubes still in. Labs reviewed. Renal parameters improved. Electrolytes within normal limit. Continue per current management. June 10: Patient remains in ICU. Has chest tubes on the left and on the right. Remains intubated on ventilator. Due for weaning today. Labs reviewed. BUN and creatinine marli. Will change the IV to normal saline 50 cc an hour. Will discontinue Zaroxolyn. We will continue to monitor renal parameters and electrolytes. Continue per consultants. June 09: Patient now in ICU postop. Has bilateral chest tube. Intubated on ventilator. Today's labs reviewed. Continue per consultants. Continue to monitor renal parameters. June 08: Status quo. Continues on BiPAP. Due for VATS tomorrow. Start midodrine for low blood pressure. June 06: Status unchanged. Labs reviewed. Renal parameters stable. Continue per consultants. Remains full code. Remains on BiPAP. June 05: Electrolytes now normalized. Discussed with RN. Patient due for VATS surgery early next week. Continue current pulmonary support and monitor renal parameters. June 04: Potassium low. Creatinine higher. Will discontinue IV Lasix as the patient already on metolazone. Potassium supplement ordered. 250 mL of 3% saline ordered. Continue to monitor electrolytes and renal parameters. Continue per consultants. June 03: Discussed with Dr. Olson. Patient's pleural effusions continue to be a challenge. Patient on diuretics. Will watch renal parameters and electrolytes. Patient was already tapped twice. Continue per current management. June 02: No chemistry panel done today. Status unchanged. Remains on nonrebreathing mask. Will check lab tomorrow. Continue per pulmonary. June 01: Labs reviewed. Status unchanged. Remains on nonrebreathing mask. Will increase his Lasix to 40 twice daily. Stable electrolytes and renal parameters at this time. May 31: No chemistry panel done today. Patient still on nonrebreathing mask. Patient full code. Will check lab tomorrow. Patient's main issue is resp iratory. May 30: Labs reviewed. Renal parameters stable. Continue per pulmonary. May 29: No chemistry panel done today. Remains on nonrebreather mask. Will order labs tomorrow. Continue per consultants. May 28: Serum creatinine up to 1.5. Remains on nonrebreather mask. Since admission had 3 thoracenteses for pleural effusion over the left and right. Respiratory status remains unstable. Continue per pulmonary. Will watch renal parameters. May 27: When seen the patient was on 100% nonrebreather mask. Renal panel within normal limit. Continue per consultants. Main problem remains respiratory. May 26: Renal parameters stable. Started on Lasix 40 mg daily. Continue to monitor renal parameters and electrolytes. Continue per consultants. May 25: Renal parameters within normal limit. Another dose of IV Lasix given. Continue to monitor electrolytes. Continue per consultants. May 24: Renal parameters normalized. Will give the Lasix 40 mg IV once. 1 dose of Kayexalate for hyperkalemia. Continue to monitor renal parameters. Previously: Today renal parameters are improved. Serum creatinine down to 1.6 from 2.7 Continue to hold lisinopril Continue to hold Lasix Half Normal saline 100 cc an hour one liter only was given yesterday Albumin bolus given yesterday, repeat as needed Monitor renal parameters Avoid nephrotoxic's Subjective ROS Limited/Unobtainable: No Constitutional: Reports: malaise Objective Objective Last 24 Hour Vital Signs Date Time Temp Pulse Resp B/P (MAP) Pulse Ox O2 Delivery O2 Flow Rate FiO2 06/16/20 08:00 83 06/16/20 08:00 97.5 79 18 99/63 (75) 99 06/16/20 08:00 Nasal Cannula 2.0 Nasal Cannula 2.0 06/16/20 04:00 97.0 72 16 95/50 (65) 100 06/16/20 04:00 Nasal Cannula 2.0 Nasal Cannula 2.0 06/16/20 03:30 76 06/16/20 00:30 82 91/54 (66) 06/15/20 23:49 97.1 80 16 87/56 (66) 100 06/15/20 23:49 Nasal Cannula 2.0 Nasal Cannula 2.0 06/15/20 23:30 74 06/15/20 20:00 Nasal Cannula 2.0 Nasal Cannula 2.0 06/15/20 20:00 97.5 84 20 80/46 (57) 100 06/15/20 19:03 85 06/15/20 16:00 86 06/15/20 16:00 Nasal Cannula 2.0 Nasal Cannula 2.0 06/15/20 16:00 97.0 94 20 95/65 (75) 100 06/15/20 16:00 86 06/15/20 12:00 90 06/15/20 12:00 90 06/15/20 12:00 97.0 96 20 116/61 (79) 100 06/15/20 12:00 Nasal Cannula 2.0 Nasal Cannula 2.0 Intake and Output 06/15/20 06/16/20 19:00 07:00 Intake Total 500 ml 30 ml Balance 500 ml 30 ml Intake Oral 500 ml 30 ml # Voids 9 1 # Bowel Movements 2 Laboratory Tests 06/15/20 12:09: POC Whole Blood Glucose [Pending] 06/15/20 16:37: POC Whole Blood Glucose 262H 06/16/20 05:28: POC Whole Blood Glucose 114H 06/16/20 07:50: White Blood Count 9.7, Red Blood Count 4.01L, Hemoglobin 11.5L, Hematocrit 33.3L , Mean Corpuscular Volume 83, Mean Corpuscular Hemoglobin 28.7, Mean Corpuscular Hemoglobin Concent 34.6, Red Cell Distribution Width 14.5, Platelet Count 272, Mean Platelet Volume 6.2L, Neutrophils (%) (Auto) 84.2H, Lymphocytes (%) (Auto) 8.0L, Monocytes (%) (Auto) 4.9, Eosinophils (%) (Auto) 1.0, Basophils (%) (Auto) 2.1H 06/16/20 09:30: POC Whole Blood Glucose [Pending] Height (Feet): 5 Height (Inches): 0.00 Weight (Pounds): 111 General Appearance: no apparent distress Respiratory/Chest: decreased breath sounds Abdomen: soft Objective No change Montrell Carpio MD Jun 16, 2020 10:57
--- NOTE | 2020-06-16 11:02 | Infectious Diseases Prog Note ---
Assessment/Plan Assessment/Plan IMPRESSION: Leukocytosis, resolved systemic inflammatory response syndrome or sepsis, Recurrent pleural effusion, CML, Accelerated hypertension, Elevation of troponin. Hypoxemia Hyperglycemia Anxiety disorder Perioperative respiratory failure Azotemia RECOMMENDATION: Observe off antibiotic Agree with discharge to home Subjective ROS Limited/Unobtainable: No Constitutional: Reports: no symptoms Respiratory: Reports: no symptoms Gastrointestinal/Abdominal: Reports: no symptoms Genitourinary: Reports: no symptoms Allergies: Coded Allergies: No Known Allergies (Unverified , 05/19/20) Objective Last 24 Hour Vital Signs Date Time Temp Pulse Resp B/P (MAP) Pulse Ox O2 Delivery O2 Flow Rate FiO2 06/16/20 08:00 83 06/16/20 08:00 97.5 79 18 99/63 (75) 99 06/16/20 08:00 Nasal Cannula 2.0 Nasal Cannula 2.0 06/16/20 04:00 97.0 72 16 95/50 (65) 100 06/16/20 04:00 Nasal Cannula 2.0 Nasal Cannula 2.0 06/16/20 03:30 76 06/16/20 00:30 82 91/54 (66) 06/15/20 23:49 97.1 80 16 87/56 (66) 100 06/15/20 23:49 Nasal Cannula 2.0 Nasal Cannula 2.0 06/15/20 23:30 74 06/15/20 20:00 Nasal Cannula 2.0 Nasal Cannula 2.0 06/15/20 20:00 97.5 84 20 80/46 (57) 100 06/15/20 19:03 85 06/15/20 16:00 86 06/15/20 16:00 Nasal Cannula 2.0 Nasal Cannula 2.0 06/15/20 16:00 97.0 94 20 95/65 (75) 100 06/15/20 16:00 86 06/15/20 12:00 90 06/15/20 12:00 90 06/15/20 12:00 97.0 96 20 116/61 (79) 100 06/15/20 12:00 Nasal Cannula 2.0 Nasal Cannula 2.0 Height (Feet): 5 Height (Inches): 0.00 Weight (Pounds): 111 HEENT: mucous membranes moist Respiratory/Chest: lungs clear Cardiovascular: normal rate Abdomen: soft, non tender Extremities: no edema Neurologic/Psychiatric: alert, oriented x 3, responsive Laboratory Tests Test 06/15/20 12:09 06/15/20 16:37 06/16/20 05:28 06/16/20 07:50 POC Whole Blood Glucose Pending 262 MG/DL (74-106) H 114 MG/DL (74-106) H White Blood Count 9.7 K/UL (4.8-10.8) Red Blood Count 4.01 M/UL (4.20-5.40) L Hemoglobin 11.5 G/DL (12.0-16.0) L Hematocrit 33.3 % (37.0-47.0) L Mean Corpuscular Volume 83 FL (80-99) Mean Corpuscular Hemoglobin 28.7 PG (27.0-31.0) Mean Corpuscular Hemoglobin Concent 34.6 G/DL (32.0-36.0) Red Cell Distribution Width 14.5 % (11.6-14.8) Platelet Count 272 K/UL (150-450) Mean Platelet Volume 6.2 FL (6.5-10.1) L Neutrophils (%) (Auto) 84.2 % (45.0-75.0) H Lymphocytes (%) (Auto) 8.0 % (20.0-45.0) L Monocytes (%) (Auto) 4.9 % (1.0-10.0) Eosinophils (%) (Auto) 1.0 % (0.0-3.0) Basophils (%) (Auto) 2.1 % (0.0-2.0) H Test 06/16/20 09:30 POC Whole Blood Glucose Pending Current Medications Medications (Trade) Dose Ordered Sig/Jennie Route PRN Reason Start Time Stop Time Status Last Admin Dose Admin Acetaminophen (Tylenol) 500 mg Q6H PRN ORAL Mild Pain (Pain Scale 1-3) 05/19/20 16:45 06/18/20 16:44 Allopurinol (allopurinoL) 300 mg DAILY ORAL 06/06/20 11:00 07/06/20 10:59 06/16/20 09:33 Clonidine HCl (Catapres Tab) 0.1 mg Q4H PRN ORAL SBP > 170 05/24/20 13:15 08/22/20 13:14 Dexamethasone Sodium Phosphate (Decadron 4mg/ml vial) 4 mg DAILY IVP 06/07/20 12:30 09/05/20 12:29 06/16/20 09:33 Dextrose (Dextrose 50%) 25 ml Q30M PRN IV Hypoglycemia 06/14/20 12:30 09/12/20 12:29 Dextrose (Dextrose 50%) 50 ml Q30M PRN IV Hypoglycemia 06/14/20 12:30 09/12/20 12:29 Docusate Sodium (Colace) 100 mg TWICE A DAY ORAL 05/22/20 18:00 06/21/20 17:59 06/16/20 09:33 Enoxaparin Sodium (Lovenox) 40 mg DAILY SUBQ 06/02/20 09:00 08/31/20 08:59 06/15/20 08:40 Insulin Aspart (NovoLOG) BEFORE MEALS AND HS SUBQ 06/05/20 06:30 09/03/20 06:29 06/15/20 20:10 Insulin Detemir (Levemir) 5 units DAILY SUBQ 06/14/20 14:00 09/12/20 13:59 06/16/20 09:37 Mirtazapine (Remeron) 7.5 mg BEDTIME ORAL 06/02/20 21:00 08/31/20 20:59 06/15/20 20:09 Pantoprazole (Protonix) 40 mg DAILY IVP 06/08/20 09:00 07/08/20 08:59 06/16/20 09:33 Sodium Chloride 500 ml @ 999 mls/hr Q31M PRN IV For hypotension 06/09/20 17:00 07/09/20 16:59 06/09/20 21:08 Timothy Pennington MD Jun 16, 2020 11:02
[2020-06-16] MEDS ORDERED: NS 500ML ONE (11:44)
--- NOTE | 2020-06-16 12:27 | Cardiac Electrophysiology PN ---
Assessment/Plan Assessment/Plan 1. Hypertension. Stable off BP meds 2. Troponin leak. No CP, ECG non ischemic and due to renal failure 3. Bilateral pleural effusions. S/P Right side thoracentesis x 2. FU by Dr. Olson. S/P Left thoracentesis again x2 last one 05/29/20. S/P VATS by Dr Joseph with bilateral chest tubes 06/09/20. Extubated and on nasal cannula Chest tubes removed 06/13/20 4. Hyponatremia. 5. CML x 5 years, sees onc[place] in [facility] [place] [facility] DCed desatanib (also is the likely cause of pleural effusions) Per Dr Dolan 6. Acute renal failure with sudden JUMP in creatinine to 2.7. FU Dr Carpio. Better after iv fluid, Albumin and off Lisinopril. Cr down to 0.8 DW RN DC today Subjective Subjective S/P 2 Right sided thoracentesis on 05/21/20 and 05/26/20 S/P 2 Left thoracentesis last one 05/29/20 S/P VATS by Dr. Joseph 06/09/20. Both chest tubes were removed Off oxygen. Sister at bedside. Going home today Objective Last 24 Hour Vital Signs Date Time Temp Pulse Resp B/P (MAP) Pulse Ox O2 Delivery O2 Flow Rate FiO2 06/16/20 08:00 83 06/16/20 08:00 97.5 79 18 99/63 (75) 99 06/16/20 08:00 Nasal Cannula 2.0 Nasal Cannula 2.0 06/16/20 04:00 97.0 72 16 95/50 (65) 100 06/16/20 04:00 Nasal Cannula 2.0 Nasal Cannula 2.0 06/16/20 03:30 76 06/16/20 00:30 82 91/54 (66) 06/15/20 23:49 97.1 80 16 87/56 (66) 100 06/15/20 23:49 Nasal Cannula 2.0 Nasal Cannula 2.0 06/15/20 23:30 74 06/15/20 20:00 Nasal Cannula 2.0 Nasal Cannula 2.0 06/15/20 20:00 97.5 84 20 80/46 (57) 100 06/15/20 19:03 85 06/15/20 16:00 86 06/15/20 16:00 Nasal Cannula 2.0 Nasal Cannula 2.0 06/15/20 16:00 97.0 94 20 95/65 (75) 100 06/15/20 16:00 86 Intake and Output 06/15/20 06/16/20 19:00 07:00 Intake Total 500 ml 30 ml Balance 500 ml 30 ml Intake Oral 500 ml 30 ml # Voids 9 1 # Bowel Movements 2 Laboratory Tests Test 06/15/20 16:37 06/16/20 05:28 06/16/20 07:50 06/16/20 09:30 POC Whole Blood Glucose 262 MG/DL (74-106) H 114 MG/DL (74-106) H Pending White Blood Count 9.7 K/UL (4.8-10.8) Red Blood Count 4.01 M/UL (4.20-5.40) L Hemoglobin 11.5 G/DL (12.0-16.0) L Hematocrit 33.3 % (37.0-47.0) L Mean Corpuscular Volume 83 FL (80-99) Mean Corpuscular Hemoglobin 28.7 PG (27.0-31.0) Mean Corpuscular Hemoglobin Concent 34.6 G/DL (32.0-36.0) Red Cell Distribution Width 14.5 % (11.6-14.8) Platelet Count 272 K/UL (150-450) Mean Platelet Volume 6.2 FL (6.5-10.1) L Neutrophils (%) (Auto) 84.2 % (45.0-75.0) H Lymphocytes (%) (Auto) 8.0 % (20.0-45.0) L Monocytes (%) (Auto) 4.9 % (1.0-10.0) Eosinophils (%) (Auto) 1.0 % (0.0-3.0) Basophils (%) (Auto) 2.1 % (0.0-2.0) H Objective HEAD AND NECK: No JVD. LUNGS: Decreased breath sounds. Bilateral chest tubes removed now CARDIOVASCULAR: Regular S1 and S2 and tachycardic. ABDOMEN: Soft. EXTREMITIES: No pitting edema. Cristian England MD Jun 16, 2020 12:27
--- NOTE | 2020-06-16 20:09 | General Progress Note ---
Subjective Allergies: Coded Allergies: No Known Allergies (Unverified , 05/19/20) Subjective Seen this am doing better breathing better tolerating PO diet Objective Last 24 Hour Vital Signs Date Time Temp Pulse Resp B/P (MAP) Pulse Ox O2 Delivery O2 Flow Rate FiO2 06/16/20 08:00 83 06/16/20 08:00 97.5 79 18 99/63 (75) 99 06/16/20 08:00 Nasal Cannula 2.0 Nasal Cannula 2.0 06/16/20 04:00 97.0 72 16 95/50 (65) 100 06/16/20 04:00 Nasal Cannula 2.0 Nasal Cannula 2.0 06/16/20 03:30 76 06/16/20 00:30 82 91/54 (66) 06/15/20 23:49 97.1 80 16 87/56 (66) 100 06/15/20 23:49 Nasal Cannula 2.0 Nasal Cannula 2.0 06/15/20 23:30 74 Intake and Output 06/15/20 06/16/20 19:00 07:00 Intake Total 500 ml 30 ml Balance 500 ml 30 ml Intake Oral 500 ml 30 ml # Voids 9 1 # Bowel Movements 2 Laboratory Tests 06/16/20 05:28: POC Whole Blood Glucose 114H 06/16/20 07:50: White Blood Count 9.7, Red Blood Count 4.01L, Hemoglobin 11.5L, Hematocrit 33.3L , Mean Corpuscular Volume 83, Mean Corpuscular Hemoglobin 28.7, Mean Corpuscular Hemoglobin Concent 34.6, Red Cell Distribution Width 14.5, Platelet Count 272, Mean Platelet Volume 6.2L, Neutrophils (%) (Auto) 84.2H, Lymphocytes (%) (Auto) 8.0L, Monocytes (%) (Auto) 4.9, Eosinophils (%) (Auto) 1.0, Basophils (%) (Auto) 2.1H 06/16/20 09:30: POC Whole Blood Glucose [Pending] Height (Feet): 5 Height (Inches): 0.00 Weight (Pounds): 111 Objective NCAT, supple Coarse BS RR abd soft no edema Assessment/Plan Status: progressing Assessment/Plan: Assessment - Respiratory failure- improved - pleural effusions, s/p thoracentesis - Renal failure - resolved - Elevated troponin - HTN - CML Recommendations - Pulmonary management - Elevate HOB - po diet as tolerated - follow labs and exam - d/c planning Antonio Ratliff MD Jun 16, 2020 20:09
--- NOTE | 2020-06-18 15:12 | Discharge Summary ---
Discharge Summary Discharge Summary _ DATE OF ADMISSION: 05/19/2020 DATE OF DISCHARGE: 06/16/2020 DISCHARGED BY: Dr. Jara REASON FOR ADMISSION: 60 years old female with past medical history of hypertension, leukemia/CML, presented with increased difficulty breathing. Patient reported gradually worsening shortness of breath over the past week. Patient was treated with oral medication for leukemia. She denied fever or chills. Upon evaluation she was hypoxic; on 100% nonrebreathing mask pulse oximetry was 92% . Blood pressure was elevated 181/97 , no fevers, low tachycardia. Laboratory work-up revealed leukocytosis WBC 18.1, stable hemoglobin , hematocrit and platelet count. Lactic acid 0.8. D-dimer 2.44. Sodium 132, chloride 100. BUN 32, creatinine 1.1. Glucose 163. Stable LFT . Troponin negative , proBNP 718 . ECG revealed sinus rhythm. Urinalysis revealed +3 protein , no pyuria and few bacteria. Chest x-ray demonstrated bilateral large pleural effusion and mild interstitial congestion. In emergency department patient received a dose of IV Lasix , empiric antibiotic and admitted for further management. CONSULTANTS: post anesthesia care unit nurse Dr. Polanco cardiothoracic surgeon Dr. Joseph help desk internship Dr. Gomez pulmonary Dr. Olson ID specialist Dr. Timothy Pennington GI specialist Dr. Ratliff shipboard intelligence analyst Dr. Carpio housekeeping supervisor hotel/oncologist Dr. Higgins psychiatrist HOSPITAL COURSE: Patient admitted to telemetry floor. Supplemental oxygen provided and titrated to keep pulse oximetry above 92% . Pulmonary toilet provided. Patient initially was on nonrebreather mask . Echocardiogram demonstrated preserved ejection fraction 65% . No evidence of left ventricular hypertrophy. Large bilateral pleural effusion. Right ventricular systolic pressure of 85 consistent with severe pulmonary hypertension. Venous duplex bilateral lower extremity revealed no evidence of DVT . Patient received diuresis with close monitoring of volumes and cardiorenal parameters. Blood pressure was stabilized with Lisinopril and Clonidine. The next day creatinine 2.7. Lasix and Lisinopril were stopped. Patient undergone ultrasound guided thoracentesis of right pleural effusion 05/20, yielding 1500 ml of pleural fluid and ultrasound-guided thoracentesis of left pleural effusion on 05/22 yielding 1200 mL of pleural fluid. CXR revealed no evidence of complications, but subsequent CXR showed recurrence of bilateral pleural effusion. Patient undergone another ultrasound guided thoracentesis of bilateral pleural effusion . Follow-up chest x-ray revealed no evidence of complications; large right pleural effusion resolved , but left pleural effusion remained persistent. Cytology of pleural fluid was negative for malignant cells. Patient subsequently undergone CT scan of the chest , which revealed bilateral large pleural effusion . Cardiothoracic surgeon consulted . Patient subsequently undergone on 06/09 flexible bronchoscopy, left video- assisted thoracoscopic surgery, intrapleural pneumolysis, left upper and lower lobe wedge resection, partial pleurectomy, bilateral Pleurx catheter placement and intercostal nerve block. Patient left initially intubated after surgery. Ventilator support and pulmonary toilet provided. Chest tube output was closely monitored. Chest x-ray on 06/10 revealed small left apical pneumothorax, along the medial aspect of the left lung apex. Left-sided chest tube. The right lung was clear , with no pneumothorax. Patient was followed -up with a daily chest x-ray . Patient was able to be extubated on 06/11. Chest x-ray on 06/13 showed no pneumothorax. Subsequently chest tube were discontinued. Renal parameters and electrolytes were closely monitored, electrolytes corrected as needed, and nephrotoxic were avoided. Patient developed acute renal failure with highest creatinine of 2.7 ( Lasix and Lisinopril were discontinued, as mentioned above). Acute renal failure resolved. Patient noted to have elevated troponin levels , which were minimally elevated - 0.26 , and the last one 0.085. According to post anesthesia care unit nurse patient had troponin leak most likely secondary to renal failure. Patient had no chest pain. EKG was nonischemic. Blood pressure was closely monitored and remained stable off antihypertensive medication. Blood cultures were negative. Rapid COVID-19 was negative. Operative fluid culture was negative. Acid-fast was smear was negative, and sputum culture was negative. Patient initially was on ceftriaxone , for possible pneumonia, which subsequently was discontinued. No fevers, no leukocytosis resolved. ID specialist recommended to observe patient off antibiotics. Patient was diagnosed with CML for 5 years and was seeing oncologist in the area where she resides. Patient was on dasatinib, which likely was the cause of pleural effusion. Oncologist discontinued dasatinib at this time. Patient has steroid-induced hyperglycemia. Blood sugar was managed as per help desk internship recommendations with long- acting Levemir and sliding scale of insulin as needed. Hypoglycemia protocol was in place. Per psychiatrist patient had anxiety disorder. Reality orientation and supportive therapy provided. Patient started on Remeron. Patient clinically stabilized and was ready for discharge home . FINAL DIAGNOSES: Bilateral recurrent pleural effusion , most likely due to dasatinib Status post right-sided thoracentesis x2 Status post left -sided thoracentesis x2 Status post VATS with bilateral chest tube, s/p removal of chest tube Perioperative respiratory failure ( kept intubated after surgery) CML ASHLEY/Acute renal failure-resolved Possible PNA Hypertension with initial HTN urgency Steroid induced hyperglycemia Dehydration Hyponatremia Elevated D-dimer Troponin leak Anxiety disorder DISCHARGE MEDICATIONS: See Medication Reconciliation list. DISCHARGE INSTRUCTIONS: Patient was discharged home with home health services. Follow up with primary care provider in one week. I have been assigned to dictate discharge summary for this account. I was not involved in the patient's management. Kristen Stallings NP Jun 18, 2020 15:12
== END 2020-06-16 11:45 | disposition home health service (06) | DRG 120 ==
LOC: EDBD 12:28 → EMR 12:50 → 2W 13:41 → EDBEDREQ 15:08 → ICU 05-20 07:00 → 2W 05-21 06:44 → ICU 06-09 10:00 → 2W 06-11 21:16 → 2E 06-16 07:40
DX: J90 Pleural effusion, not elsewhere classified (principal); E87.1 Hypo-osmolality and hyponatremia; C92.10 Chronic myeloid leukemia, BCR/ABL-positive, not having achieved remission; J18.9 Pneumonia, unspecified organism; N17.9 Acute kidney failure, unspecified; T45.1X5A Adverse effect of antineoplastic and immunosuppressive drugs, initial encounter; Y92.019 Unspecified place in single-family (private) house as the place of occurrence of the external cause; J96.91 Respiratory failure, unspecified with hypoxia; D50.9 Iron deficiency anemia, unspecified; I16.0 Hypertensive urgency; E78.5 Hyperlipidemia, unspecified; E86.0 Dehydration; E09.9 Drug or chemical induced diabetes mellitus without complications; T38.0X5A Adverse effect of glucocorticoids and synthetic analogues, initial encounter; F41.9 Anxiety disorder, unspecified; J95.811 Postprocedural pneumothorax; I95.9 Hypotension, unspecified; E46 Unspecified protein-calorie malnutrition; Z68.1 Body mass index [BMI] 19.9 or less, adult
CPT/HCPCS: 36415; 71045; 71250; 74018; 76942; 80048; 80053; 80061; 81003; 82330; 82533; 82803; 82962; 82977; 83036; 83605; 83735; 83880; 83930; 84100; 84439; 84443; 84484; 84550; 85007; 85025; 85379; 85610; 85730; 86140; 86850; 86900; 86901; 87040; 87070; 87116; 87205; 88104; 89051; 93005; 93306; 93970; 94002; 94003; 94150; 94640; 94660; 94664; 96365; 96375; 99285; J1815; J2405; J7030; J7620; J8499; S5561; U0002